=== PATIENT | female | born 1955 | race Caucasian/White ===

== ENCOUNTER → 2016-05-21 | Outpatient (CLI) | payer OTHER ==
[~2016-05-21] MED LIST: ASP81TEC PO; ATRV10T PO; CALC-146 PO; CHOL10003 PO; FAMO-119 PO; GLUC-113 PO; HYDR-34 PO; MTP25TSR PO; MULT-974 PO; OXYC-12 PO
--- OUTSIDE RECORDS SUMMARY | 2016-05-21 09:24 | XMS REPORT | Continuity of Care Document ---
Author Author [facility] Organization [facility] Address Unknown Phone Unavailable Care Team Providers Care Recreation Worker Name Role Phone Sakshi Carcamo PCP Unavailable Source Comments Some departments are not documenting in the electronic medical record. If you do not see the information that you expected, contact Release of Information in the Health Information Management department at [phone] for further assistance in locating additional records.[facility] Active Allergies and Adverse Reactions Allergen Noted Date Severity Reactions Comments Keflex 07/11/2013 NAUSEA AND VOMITING Current Medications Prescription Sig. Disp. Refills Start End Date Status Date metoprolol XL (TOPROL XL) Take 25 mg by mouth twice Active 25 mg tablet daily. atorvastatin (LIPITOR) 10 Take 10 mg by mouth Active mg tablet daily. aspirin 81 mg chewable Take 81 mg by mouth Active tablet daily. CALCIUM CARBONATE/VITAMIN Take by mouth daily. Active D3 (CALCIUM + D PO) MULTIVITAMINS WITH Take by mouth daily. Active FLUORIDE (MULTI-VITAMIN PO) coenzyme Q10(+) 100 mg Take 100 mg by mouth Active cap daily. famotidine (PEPCID) 20 mg Take 20 mg by mouth Active tablet daily. GLUC/GABBY-MSM#2/C/D3/CAROLINE Take by mouth daily. Active /BORN (RFAMLCRA-HNNRZA-[facility] WITH VIT D PO) Active Problems Problem Noted Date Dyspnea 07/11/2013 Screening for cardiovascular condition 04/24/2013 Overview: 09/01/09 Exercise stress [facility]- No evidence of significant myocardial ischemia or infarction, Normal regional wall motion, normal global Lv systolic function EF 73%, Normal LV size 09/26/12 Holter: Frequent isolated PVCs. One 4 -beat run of nonsustained wide complex tachycardia. Borderline ST abnormality. 09/27/12 Echo: Normal global LV systolic function. EF 60%. Pulmonary systolic pressure is estimated to be approximately 30-35 mmHg. 10/03/12 - (Via [place], [place]) No angiographically significant coronary artery diease on cardiac cath per outside records. LVEF 60%. Mild elevation of LV end-diastolic pressure. Tobacco use 04/24/2013 Palpitations 04/24/2013 Hyperlipidemia Social History Tobacco Use Types Packs/Day Years Used Date Current Every Day Smoker Cigarettes 0.5 Smokeless Tobacco: Never Used Alcohol Use Drinks/Week oz/Week Comments No Last Filed Vital Signs Vital Sign Reading Time Taken Blood Pressure 132/80 06/06/2014 10:42 AM CDT Pulse 73 06/06/2014 10:33 AM CDT Temperature - - Respiratory Rate - - Height 1.626 m (5' 4") 06/06/2014 10:33 AM CDT Weight 77.429 kg (170 lb 11.2 06/06/2014 10:33 AM CDT oz) Body Mass Index 29.29 06/06/2014 10:33 AM CDT Oxygen Saturation - - Plan of Care Health Maintenance Due Date Last Done Comments Physical (Comprehensive) 01/24/1964 Exam Pertussis Vaccine 01/24/1968 Tetanus Vaccine 1974 Cervical Cancer Screening 1978 Breast Cancer Screening 1997 Colorectal Cancer 2007 Screening Influenza Vaccine 11/27/2015 Results from Last 3 Months Not on file
== END ==
LOC: CARD 09:20
PROVIDERS: ATTEND Internal Medicine Interventional Cardiology
DX: I49.3 Ventricular premature depolarization (principal); I47.2 Ventricular tachycardia; Z72.0 Tobacco use
CPT/HCPCS: 93225; 93226

== ENCOUNTER → 2017-06-29 | Outpatient (CLI) | payer OTHER ==
--- NOTE | 2017-06-29 16:07 | Diagnostic Imaging Report ---
INDICATION: COUGH, R05 COMPARISON: None. FINDINGS: Frontal and lateral views of the chest demonstrate normal heart size and pulmonary vascularity. The lungs are clear. There are no signs of infiltrate, pleural effusions or pneumothoraces. The visualized osseous structures show no acute abnormalities. IMPRESSION: 1. No acute process. No signs of infiltrates, effusions or pneumothoraces. Dictated by: Dictated on workstation # [id number]
== END ==
LOC: RAD 15:55
PROVIDERS: ATTEND Internal Medicine
DX: R05 Cough (principal)
CPT/HCPCS: 71046

== ENCOUNTER → 2017-07-27 | Outpatient (CLI) | payer OTHER | LOC: RT 10:14 | PROVIDERS: ATTEND Internal Medicine Cardiovascular Disease | DX: R06.02 Shortness of breath (principal) | CPT/HCPCS: 94060; 94726; 94729 ==

== ENCOUNTER 2017-10-12 05:33 | Outpatient (CLI) | payer OTHER ==
[~2017-10-12] VITALS: Ht 162.6 cm; Wt 83.1 kg
[2017-10-12] MEDS ORDERED: CALC600T12 PO (09:58)
[2017-10-12] MEDS ORDERED: GLUC1CAP37 PO (09:58)
[2017-10-12] MEDS ORDERED: FAMO20TA3 PO (09:58)
[2017-10-12] MEDS ORDERED: ATOR20TA66 PO (09:58)
[2017-10-12] MEDS ORDERED: ASPI-999 PO (09:58)
[2017-10-12] MEDS ORDERED: METO-370 PO (09:58)
[2017-10-12] MEDS ORDERED: CHOL5000 PO (09:58)
[2017-10-12 10:06] VITALS: BP 136/87
[2017-10-12] MEDS ORDERED: NAPR220C11 PO (10:08)
== END 2017-10-12 10:54 | disposition home or self-care (01) ==
LOC: PREOP 05:33
PROVIDERS: ATTEND Orthopaedic Surgery
DX: Z01.818 Encounter for other preprocedural examination (principal); Z11.2 Encounter for screening for other bacterial diseases; S83.241A Other tear of medial meniscus, current injury, right knee, initial encounter; X58.XXXA Exposure to other specified factors, initial encounter; Y92.015 Private garage of single-family (private) house as the place of occurrence of the external cause
CPT/HCPCS: 87081

== ENCOUNTER 2017-10-19 08:08 | Day surgery (SDC) | payer OTHER ==
--- NOTE | 2017-10-10 17:32 | HISTORY AND PHYSICAL ---
DATE OF SERVICE: DATE OF ADMISSION: 10/19/2017 This will be for outpatient surgery on 10/19/2017 for left knee arthroscopy. HISTORY OF PRESENT ILLNESS: The patient is a 62-year-old female with osteogenesis imperfecta who injured her left knee approximately 7 weeks ago when she slipped on her garage floor twisting her knee. Since then she has been unable to fully extend her knee. She reports pain on the medial aspect. She denies any prior history of knee problems. She reports pain with twisting and prolonged standing. She reports swelling in her knee due to functional impairment and failure to improve with conservative measures, the patient elected to proceed with surgical intervention. REVIEW OF SYSTEMS: No chest pain, no shortness of breath. No dysuria. PAST MEDICAL HISTORY: Hypertension, arrhythmia, back pain, reflux, osteogenesis imperfecta. PAST SURGICAL HISTORY: Ear surgery, right patellar tendon, right meniscus, incisional hernia, cholecystectomy, flexor tendon repair, right oophorectomy, left Achilles tendon repair. FAMILY HISTORY: Significant for coronary artery disease, hypertension, osteogenesis imperfecta. PRIMARY CARE PROVIDER: Dr. Carcamo. MEDICATIONS: Lipitor, metoprolol, aspirin, Pepcid, vitamin, glucosamine. ALLERGIES: KEFLEX AND PRAVACHOL. SOCIAL HISTORY: The patient smokes half-a-pack of cigarettes a day. Denies alcohol use. RADIOGRAPHS: Reveal mild degenerative changes in all three compartments. No acute changes. PHYSICAL EXAMINATION: GENERAL: The patient is well developed, well nourished, in no acute distress. HEENT: Normocephalic, atraumatic. Pupils equal and reactive to light. Oropharynx is clear. NECK: Supple, no lymphadenopathy. LUNGS: Clear to auscultation bilaterally. HEART: Regular rate and rhythm. ABDOMEN: Soft, nontender, nondistended. EXTREMITIES: Left knee lacks 3 degrees to full full extension with a soft block noted. There is no varus-valgus laxity. Negative anterior and posterior drawer. Moderate effusion is noted. She is tender along the medial joint line and has pain medially with Skyla's. Pain with hip internal or external rotation. She ambulates with an antalgic gait. IMPRESSION: Left knee bucket-handle medial meniscal tear. PLAN: Left knee arthroscopy with partial medial meniscectomy. The risks, benefits, options, ramifications and recovery were discussed at length with the patient. She understands and wishes to proceed. Job ID: [id number] DocumentID: [id number] Dictated Date: 10/10/2017 16:26:14 Silver Chaser Date: 10/10/2017 17:31:13 Dictated By: REFUGIO MANZANARES MD
[~2017-10-19] VITALS: Ht 162.6 cm; Wt 83.1 kg
[~2017-10-19 08:08] MED LIST changes: +ASPI-999 PO; +ATOR20TA66 PO; +CALC600T12 PO; +CHOL5000 PO; +FAMO20TA3 PO; +GLUC1CAP37 PO; +METO-370 PO; +NAPR220C11 PO
[2017-10-19] MEDS ORDERED: CLINDAMYCIN 600 MG/50 ML IVPB 50 ML IV ONE ×2 (08:14→08:45)
[2017-10-19 08:15] VITALS: BP 131/95
[2017-10-19] MEDS ORDERED: morphine PF (DURAMORPH) 10 MG/10 ML AMP ONE (08:23)
[2017-10-19] MEDS ORDERED: BUPIVACAINE 0.25% 30 ML (SENSORCAINE) VIAL ONE (08:23)
[2017-10-19] MEDS ORDERED: FAMOTIDINE 20MG/2ML IV (PEPCID) IVP ONE (08:30)
[2017-10-19] MEDS: LACTATED RINGERS 1,000 ML IV PRN ×2 (08:30→10:10)
[2017-10-19] MEDS ORDERED: FAMOTIDINE 20MG/2ML IV (PEPCID) ONE (08:35)
[2017-10-19] MEDS ORDERED: proPOfol 200 MG/20 ML (DIPRIVAN) VIAL IV ONE (09:05)
[2017-10-19] MEDS ORDERED: LIDOCAINE PF 2% 5 ML (XYLOCAINE) VIAL ONE (09:05)
[2017-10-19] MEDS ORDERED: ONDANSETRON 4 MG/2 ML (SDV) Z0FRAN ONE (09:05)
[2017-10-19] MEDS ORDERED: fentaNYL INJECTION 100 MCG/2 ML AMP ONE (09:06)
[2017-10-19] MEDS ORDERED: SEVOFLURANE (ULTANE) 15 ML INHAL SOLN ONE ×3 (09:06→09:51)
[2017-10-19] MEDS ORDERED: MIDAZOLAM 2 MG/2 ML (VERSED) VIAL ONE (09:06)
--- NOTE | 2017-10-19 09:20 | Progress Note-Pre Operative ---
Pre-Operative Progress Note H&P Reviewed The H&P was reviewed, patient examined and no changes noted. Date Seen by Provider: Oct 19, 2017 Time Seen by Provider: 09:20 Date H&P Reviewed: Oct 19, 2017 Time H&P Reviewed: 09:20 Pre-Operative Diagnosis: left knee medial meniscal tear REFUGIO MANZANARES MD Oct 19, 2017 09:20
--- NOTE | 2017-10-19 09:22 | Progress Note-Post Operative ---
Post-Operative Progess Note Surgeon (s)/Magician/Illusionist (s) Surgeon REFUGIO MANZANARES MD Magician/Illusionist: Paolo Correa Pre-Operative Diagnosis left knee medial meniscal tear Post-Operative Diagnosis left knee medial and lateral meniscus tears and chondromalacia of the medial femoral condyle, medial tibial plateau and patella Procedure & Operative Findings Date of Procedure 10/19/17 Procedure Performed/Findings left knee arthroscopic partial medial and lateral meniscectomies and chondroplasty of the medial femoral condyle, medial tibial plateau and patella Anesthesia Type GETA Estimated Blood Loss Estimated blood loss (mL): minimal Specimens/Packing Specimens Removed none Packing: none REFUGIO MANZANARES MD Oct 19, 2017 09:22
[2017-10-19] MEDS ORDERED: HYDROcodone/APAP 7.5 MG/325 MG (LORTAB, LORCET PLUS) TABLET PO PRN (09:30)
[2017-10-19] MEDS ORDERED: morphine INJ 10 MG/ML 1ML (SYR OR VIAL) IVP PRN (10:00)
[2017-10-19] MEDS ORDERED: MEPERIDINE (DEMEROL) INJ 50 MG/ML IVP PRN (10:00)
[2017-10-19] MEDS ORDERED: ONDANSETRON 4 MG/2 ML (SDV) Z0FRAN IVP PRN (10:00)
[2017-10-19] MEDS ORDERED: HYDROmorphone 1 MG/ML (DILAUDID) 1 ML SYRINGE ONE (10:04)
[2017-10-19] MEDS: HYDROmorphone 1 MG/ML (DILAUDID) 1 ML SYRINGE IV PRN ×2 (10:10→10:30)
[2017-10-19 10:50] VITALS: BP 132/92
--- NOTE | 2017-10-19 10:50 | Anesthesia-General Post-Op ---
General Patient Condition Mental Status/LOC: Same as Preop Cardiovascular: Satisfactory Nausea/Vomiting: Absent Respiratory: Satisfactory Pain: Controlled Complications: Absent Post Op Complications Complications None Follow Up Care/Instructions Patient Instructions None needed. Anesthesia/Patient Condition Patient Condition Patient is doing well, no complaints, stable vital signs, no apparent adverse anesthesia problems. No complications reported per nursing. FRANKLIN SILVA CRNA Oct 19, 2017 10:49
[2017-10-19 11:20] VITALS: BP 127/79
[2017-10-19] MEDS ORDERED: HYDR-3816 PO (11:32)
[2017-10-19 11:50] VITALS: BP 135/86
[2017-10-19 12:25] VITALS: BP 135/86
--- NOTE | 2017-10-19 12:35 | Physical Therapy Ortho Eval ---
PT Orthopedic Evaluation Type of Surgery Knee Scope (left) Prior Level of Function Current Living Status: Friend Locomotion (Upon Admit): Independent Established Durable Medical Eq: Crutches Subjective Subjective Agreeable to PT. Reports she has used crutches before. Entry Into Home: Stairs With Railing Steps Into Home: 4 Motor Control Motor Control: Motor Control WNL ROM ROM: WFL Strength Strength: WFL Transfer Transfers (B, C, W/C) (FIM): 5 (post treatment she was indep) Gait Gait Assistive Device: Crutches Right Lower Extremity: Right Weight Bearing Status RLE: Full Weight Bearing Left Lower Extremity: Left Weight Bearing Status LLE: Weight Bearing/Tolerated Gait (FIM): 5 (post treatment she was mod indep) Distance (FIM): 3=150 ft Summary/Comments skilled gait training provided with education on reduction to 1 crutch or a cane ; up/down a curb step as well. Safe with gait and stairs. Treatment Rendered Treatment: Therapeutic Exercises, Gait Train, Step Train, Issued Written HEP Exercise Instruction: Quad Sets, Straight Leg Raise, Heel Slides Assessment/Goals Goal Time Frame: 1 Visit Understands HEP: Yes Safe Ambulation: Yes Plan Treatment Plan: Discharge Treatment Duration: 1 visit PT/Family Agrees to Plan: Yes Time Time In: 1140 Time Out: 1203 Total Billed Treatment Time: 23 Billed Treatment Time visit EVL 23 CARMINE BRANCH PT Oct 19, 2017 12:35
--- NOTE | 2017-10-19 14:15 | OPERATIVE REPORT ---
DATE OF SERVICE: 10/19/2017 PREOPERATIVE DIAGNOSIS: Left knee medial meniscal tear. POSTOPERATIVE DIAGNOSES: 1. Left knee medial meniscal tear. 2. Left knee lateral meniscal tear. 3. Left knee chondromalacia of the medial femoral condyle. 4. Left knee chondromalacia of the medial tibial plateau. 5. Left knee chondromalacia of the patella. PROCEDURES: 1. Left knee arthroscopic partial medial meniscectomy. 2. Left knee arthroscopic partial lateral meniscectomy. 3. Left knee arthroscopic chondroplasty of the medial femoral condyle. 4. Left knee arthroscopic chondroplasty of the medial tibial plateau. 5. Left knee arthroscopic chondroplasty of the patella. SURGEON: Fran Gann MD. SEAL DELIVERY VEHICLE OFFICER: Paolo Correa, who assisted throughout the procedure and closed the incisions. ANESTHESIA: General endotracheal by Thong Jamison CRNA. TOURNIQUET TIME: Not applicable. ESTIMATED BLOOD LOSS: None. COMPLICATION: None. POSTOPERATIVE PLAN: Routine arthroscopy protocol. The patient was transported to the recovery room awake and in stable condition. STATEMENT OF MEDICAL NECESSITY: The patient is a 62-year-old female with the complaints of left medial knee pain, catching and locking and swelling. She was unable to fully extend her knee. She was markedly tender along the medial joint line and had pain medially with Skyla's. It was felt that she likely had a medial meniscal tear and due to functional impairment and failure to improve with conservative measures, the patient elected to proceed with the operative intervention. Examination under anesthesia revealed range of motion of 0/3/125 with a negative Natty and negative anterior and posterior drawer. No varus or valgus laxity, negative pivot shift. ARTHROSCOPIC FINDINGS: The patella demonstrated grade IV chondral loss essentially in 15 x 10 area. There were surrounding grade III chondral flaps. The trochlea demonstrated diffuse grade I-II chondral changes with no unstable chondral flaps. The medial and lateral gutters were clear. The lateral compartment demonstrated a tear of the body of the lateral meniscus approximately one-third of the body and no significant chondral pathology was noted. The ACL and PCL were intact. The medial compartment demonstrated a tear of the posterior horn and body of the medial meniscus involving approximately 1/3 of the posterior horn and body. In addition, there were grade II-III chondral flaps of the central portion of the femoral condyle and tibial plateau in 10 x 10 areas. DESCRIPTION OF PROCEDURE: After risks and benefits of procedure were discussed and questions were answered and informed consent was signed and placed on the chart, the operative site was confirmed in the preoperative holding area initialed by the surgeon. The patient was transported to the operating room and after adequate levels of general endotracheal anesthetic were obtained, a timeout was called confirming the operative site. The left lower extremity was then prepped and draped in the usual sterile fashion after an examination under anesthesia had been performed. The knee joint was injected with 60 mL of fluid and a standard inferolateral portal was placed with the arthroscope under direct visualization and inferomedial portal was created. The menisci and cruciates were carefully probed with the above findings as noted. The unstable chondral flaps of the patella were debrided with a shaver back to a stable edge. The scope was redirected in the lateral compartment. The unstable lateral meniscus tear was debrided with a shaver back to a stable edge. This was carefully probed with no further tearing or instability noted. Scope was then redirected into the medial compartment and subchondral flaps of the medial femoral condyle and medial tibial plateau were debrided with a shaver back to a stable edge and the medial meniscus tear was debrided with a shaver throughout the body and posterior horn removing approximately 1/3 of the posterior horn and body. This was carefully probed with no further tearing or instability noted. The knee was copiously irrigated. Portal site was closed with 4-0 nylon in simple interrupted fashion. The knee was injected with Duramorph. The port sites were infiltrated with plain Marcaine. A soft dressing was applied. The patient was transported to the recovery room awake and in stable condition. Job ID: [id number] DocumentID: [id number] Dictated Date: 10/19/2017 09:56:35 Pediatrician Date: 10/19/2017 14:14:39 Dictated By: FRAN GANN MD
== END 2017-10-19 12:25 | disposition home or self-care (01) ==
LOC: SDC 08:08
PROVIDERS: ATTEND Orthopaedic Surgery
DX: S83.282A Other tear of lateral meniscus, current injury, left knee, initial encounter (principal); S83.242A Other tear of medial meniscus, current injury, left knee, initial encounter; M22.42 Chondromalacia patellae, left knee; Q78.0 Osteogenesis imperfecta; I10 Essential (primary) hypertension; F17.210 Nicotine dependence, cigarettes, uncomplicated; W01.0XXA Fall on same level from slipping, tripping and stumbling without subsequent striking against object, initial encounter; Y92.015 Private garage of single-family (private) house as the place of occurrence of the external cause; Z79.82 Long term (current) use of aspirin

== ENCOUNTER 2017-12-21 08:49 | Outpatient (RCR) | payer OTHER ==
[~2017-12-21 08:49] MED LIST changes: +HYDR-3816 PO
== END 2017-12-25 | disposition home or self-care (01) ==
PROVIDERS: ATTEND Orthopaedic Surgery
DX: S83.242D Other tear of medial meniscus, current injury, left knee, subsequent encounter (principal); W19.XXXD Unspecified fall, subsequent encounter

== ENCOUNTER 2018-01-18 16:06 | Outpatient (RCR) | payer OTHER | END 2018-01-24 09:51 | disposition home or self-care (01) | PROVIDERS: ATTEND Orthopaedic Surgery | DX: S83.242D Other tear of medial meniscus, current injury, left knee, subsequent encounter (principal); W19.XXXD Unspecified fall, subsequent encounter ==

== ENCOUNTER → 2019-04-17 | Outpatient (CLI) | payer OTHER ==
[~2019-04-17] VITALS: Ht 162 cm; Wt 89.0 kg
[~2019-04-17] MED LIST changes: -METO-370 PO; +METO50TA7 PO; +REGADENOSON 0.4 MG/5 ML SYR (LEXISCAN) IV ONE
[2019-04-17] MEDS: CATHETER FLUSH 10 ML SYR IV PRN ×2 (12:01→13:06)
[2019-04-17 12:58] VITALS: BP 177/89
--- NOTE | 2019-04-18 10:27 | STRESS TEST ---
DATE OF SERVICE: 04/17/2019 RESTING AND POST REGADENOSON TECHNETIUM-99M TETROFOSMIN SPECT CT IMAGING ORDERING PHYSICIAN: Sam Reaves MD, YANNI, FACP, FACC. OTHER PHYSICIAN: Fran Gann MD. CLINICAL DIAGNOSIS: Coronary artery disease. Baseline images were carried out after injection of 10.45 mCi of technetium-99m Tetrofosmin. This was followed by 0.4 mg regadenoson and 30.5 mCi of technetium-99m Tetrofosmin for stress imaging. The electrocardiogram showed sinus rhythm with left bundle branch block at baseline. The electrocardiogram did not change significantly with the regadenoson infusion. The patient tolerated the procedure well. Review of images at rest and following stress does not indicate any distinct perfusion defects consistent with significant myocardial ischemia or infarction. Gated images show normal regional wall motion and normal global left ventricular systolic function. Left ventricular ejection fraction is calculated to be 78%. Left ventricular end diastolic volume is 45 mL. TID is absent (0.98). CONCLUSIONS: 1. No evidence of any significant myocardial ischemia or infarction on this study. 2. Normal regional wall motion. 3. Normal global left ventricular systolic function with a calculated ejection fraction of 78%. Job ID: [id number] DocumentID: [id number] Dictated Date: 04/18/2019 08:37:16 Security Public Safety Officer Date: 04/18/2019 10:26:47 Dictated By: SAM REAVES MD, YANNI, FACP, FACC, [facility]
== END ==
LOC: CARD 11:40
PROVIDERS: ATTEND Internal Medicine Cardiovascular Disease
DX: I49.3 Ventricular premature depolarization (principal); R00.2 Palpitations; R06.02 Shortness of breath; I77.89 Other specified disorders of arteries and arterioles; E78.5 Hyperlipidemia, unspecified; I07.1 Rheumatic tricuspid insufficiency; Z72.0 Tobacco use; Z79.82 Long term (current) use of aspirin; Z79.899 Other long term (current) drug therapy
CPT/HCPCS: 78452; 93017; 93306

== ENCOUNTER 2019-08-17 09:08 | Outpatient (RCR) | payer OTHER ==
[2019-08-15 11:18] VITALS: BP 128/70
[2019-08-15 11:59] LABS: BASOPHILS % (AUTO) 0 % (0-10); EOSINOPHILS # (AUTO) 0.2 10^3/uL (0.0-0.3); EOSINOPHILS % (AUTO) 2 % (0-10); HEMATOCRIT 41 % (35-52); LYMPHOCYTES # (AUTO) 2.4 X 10^3 (1.0-4.0); LYMPHOCYTES % (AUTO) 31 % (12-44); MEAN CORPUSCULAR HEMOGLOBIN 29 PG (25-34); MEAN CORPUSCULAR HGB CONC 32 G/DL (32-36); MEAN CORPUSCULAR VOLUME 91 FL (80-99); MEAN PLATELET VOLUME 9.8 FL (7.4-10.4); MONOCYTES # (AUTO) 0.7 X 10^3 (0.0-1.0); MONOCYTES % (AUTO) 9 % (0-12); NEUTROPHILS # (AUTO) 4.4 X 10^3 (1.8-7.8); NEUTROPHILS % (AUTO) 58 % (42-75); PLATELET COUNT 205 10^3/uL (130-400); RED CELL DISTRIBUTION WIDTH 14.9 % (10.0-14.5); WHITE BLOOD COUNT 7.6 10^3/uL (4.3-11.0)
[2019-08-15 12:09] LABS: INR 0.9 (0.8-1.4); PROTHROMBIN TIME PATIENT 12.6 SEC (12.2-14.7)
[2019-08-15 12:13] LABS: ALBUMIN 4.1 GM/DL (3.2-4.5); CHLORIDE 106 MMOL/L (98-107); POTASSIUM 4.2 MMOL/L (3.6-5.0); SODIUM 139 MMOL/L (135-145)
[2019-08-15 12:15] LABS: CALCIUM 9.1 MG/DL (8.5-10.1)
[2019-08-15 12:16] LABS: GLUCOSE 138 MG/DL (70-105); TOTAL PROTEIN 6.9 GM/DL (6.4-8.2)
[2019-08-15 12:17] LABS: CARBON DIOXIDE 24 MMOL/L (21-32)
[2019-08-15 12:18] LABS: BILIRUBIN,TOTAL 0.2 MG/DL (0.1-1.0)
[2019-08-15 12:19] LABS: ALKALINE PHOSPHATASE 98 U/L (40-136); CREATININE SERUM 0.79 MG/DL (0.60-1.30); GFR ESTIMATED > 60
[2019-08-15 12:20] LABS: BUN/CREATININE RATIO 18
[2019-08-15 12:22] LABS: ALANINE AMINOTRANSFERASE 23 U/L (0-55)
[2019-08-15 12:42] LABS: ERYTHROCYTE SEDIMENTATION RATE 9 MM/HR (0-30)
--- NOTE | 2019-08-15 12:42 | Diagnostic Imaging Report ---
PA and lateral chest at 1204 hours. INDICATION: Preop total knee replacement. FINDINGS: The heart size is within normal limits and stable when compared to 06/29/2017. The lungs are clear. There is no evidence for failure, pneumonia or for pleural effusion. The mediastinum is not widened. The osseous structures are intact. IMPRESSION: There is no evidence for active disease. Dictated by: Dictated on workstation # [id number]
[2019-08-15 15:33] LABS: BILIRUBIN,URINE NEGATIVE (NEGATIVE); CLARITY,URINE SL CLOUDY; COLOR,URINE YELLOW; GLUCOSE, URINE (UA) NEGATIVE (NEGATIVE); KETONES,URINE NEGATIVE (NEGATIVE); LEUKOCYTE ESTERASE ,URINE NEGATIVE (NEGATIVE); NITRITE,URINE NEGATIVE (NEGATIVE); PROTEIN,URINE NEGATIVE (NEGATIVE)
[2019-08-15 15:44] LABS: BACTERIA,URINE TRACE /HPF; RBC,URINE RARE /HPF; RENAL EPITHELIAL CELLS,URINE 0-2 /HPF; WBC,URINE RARE /HPF
[2019-08-15 15:45] LABS: AMORPHOUS SEDIMENT,UR MOD AMOR PHOSPHATE /LPF
[~2019-08-17] VITALS: Ht 162 cm; Wt 89.0 kg
[~2019-08-17 09:08] MED LIST changes: +ACET325C7 PO; +CHOL500050 PO; -HYDR-3816 PO; -REGADENOSON 0.4 MG/5 ML SYR (LEXISCAN) IV ONE
[2019-08-22] MEDS ORDERED: OXYC1TAB87 PO (07:30)
== END 2019-08-17 14:46 | disposition home or self-care (01) ==
LOC: PREOP 09:08
PROVIDERS: ATTEND Orthopaedic Surgery
DX: Z01.818 Encounter for other preprocedural examination (principal); Z11.59 Encounter for screening for other viral diseases; M17.12 Unilateral primary osteoarthritis, left knee
CPT/HCPCS: 36415; 71046; 80053; 81000; 85025; 85610; 85652; 86850; 86900; 86901; 87081; 87635

== ENCOUNTER 2019-08-22 05:58 | Inpatient (IN) | payer OTHER ==
--- NOTE | 2019-08-13 11:58 | HISTORY AND PHYSICAL ---
DATE OF SERVICE: 08/22/2019 DATE OF ADMISSION: 08/22/2019. Admission will be for left total knee arthroplasty. The patient will require regular inpatient admission due to comorbidities, need for physical therapy, need for pain management. HISTORY OF PRESENT ILLNESS: The patient is a 64-year-old female with progressively worsening left knee pain. She has difficulty with work because of her knee. She also reports difficulty with activities of daily living because of the knee. She reports pain posteriorly and anteriorly. She reports difficulty with stairs and due to functional impairment and failure to improve with conservative measures, the patient has elected to proceed with surgical intervention. REVIEW OF SYSTEMS: No chest pain, no shortness of breath, no dysuria. PAST MEDICAL HISTORY: arrhythmia, back pain, reflux, osteogenesis imperfecta, hyperlipidemia, sciatica. PAST SURGICAL HISTORY: Ear, right patellar tendon repair, right meniscus repair, incisional herniorrhaphy, cholecystectomy, small finger flexor tendon repair, right oophorectomy, left Achilles repair, colonoscopy. FAMILY HISTORY: Significant for breast cancer, cardiovascular disease, osteogenesis imperfecta. PRIMARY CARE PROVIDER: Dr. Carcamo. MEDICATIONS: Metoprolol, Lipitor, glucosamine, aspirin, Pepcid, calcium, ibuprofen, Aleve. ALLERGIES: KEFLEX AND PRAVACHOL. SOCIAL HISTORY: The patient is a former smoker. Denies alcohol use. RADIOGRAPHS: Reveal complete loss of medial and near complete loss of patellofemoral joint space of the left knee. PHYSICAL EXAMINATION: GENERAL: The patient is well developed, well-nourished, in no acute distress. HEENT: Normocephalic, atraumatic. Pupils are equal, round, reactive to light. Oropharynx is clear. NECK: Supple, no lymphadenopathy. LUNGS: Clear to auscultation. HEART: Regular rate and rhythm. ABDOMEN: Soft, nontender, nondistended. EXTREMITIES: The patient ambulates with an antalgic gait. She is tender posterior medially along the joint line. There is no varus valgus laxity. Negative anterior and posterior drawer. Range of motion is 0/0/125. She has slight effusion noted. IMPRESSION: Severe left knee osteoarthritis, unresponsive to conservative measures. PLAN: Left total knee arthroplasty. The risks, benefits, options, ramifications and recovery were discussed at length with the patient. She understands and wishes to proceed. Job ID: [id number] DocumentID: [id number] Dictated Date: 08/13/2019 10:29:21 El Teacher Date: 08/13/2019 11:57:36 Dictated By: REFUGIO MANZANARES MD
[~2019-08-22] VITALS: Ht 162 cm; Wt 89.0 kg
[2019-08-22] VITALS (16 sets, daily range): BP systolic 126–183; BP diastolic 64–104
[2019-08-22] MEDS ORDERED: CEFUROXIME INJECTION 1,500 MG in WATER (STERILE) FOR INJECTION 15 ML IV ONE (06:15)
[2019-08-22] MEDS: LACTATED RINGERS 1,000 ML IV PRN ×3 (06:23→09:53)
[2019-08-22] MEDS ORDERED: BUPIVACAINE 0.5% 30 ML (SENSORCAINE) VIAL ONE (06:43)
[2019-08-22] MEDS ORDERED: SEVOFLURANE (ULTANE) 15 ML INHAL SOLN ONE (06:43)
[2019-08-22] MEDS ORDERED: DEXAMETHASONE 10 MG/ML (DECADRON) 1 ML VIAL ONE (06:43)
[2019-08-22] MEDS ORDERED: ONDANSETRON 4 MG/2 ML (SDV) Z0FRAN ONE ×2 (06:43→06:57)
[2019-08-22] MEDS ORDERED: LIDOCAINE PF 2% 5 ML (XYLOCAINE) VIAL ONE (06:43)
[2019-08-22] MEDS ORDERED: proPOfol 200 MG/20 ML (DIPRIVAN) VIAL IV ONE (06:43)
[2019-08-22] MEDS ORDERED: fentaNYL INJECTION 100 MCG/2 ML AMP ONE (06:44)
[2019-08-22] MEDS ORDERED: MIDAZOLAM 2 MG/2 ML (VERSED) VIAL ONE (06:44)
[2019-08-22] MEDS ORDERED: TRANEXAMIC ACID 100 MG/ML 10 ML INJECTION IV ONE (06:53)
[2019-08-22] MEDS ORDERED: FAMOTIDINE 20MG/2ML IV (PEPCID) ONE (06:58)
--- NOTE | 2019-08-22 07:28 | Progress Note-Pre Operative ---
Pre-Operative Progress Note H&P Reviewed The H&P was reviewed, patient examined and no changes noted. Date Seen by Provider: August 22, 2019 Time Seen by Provider: 07:20 Date H&P Reviewed: August 22, 2019 Time H&P Reviewed: 07:11 Pre-Operative Diagnosis: left knee primary osteoarthritis REFUGIO MANZANARES MD August 22, 2019 07:28
--- NOTE | 2019-08-22 07:29 | Progress Note-Post Operative ---
Post-Operative Progess Note Surgeon (s)/Linotype Worker (s) Surgeon REFUGIO MANZANARES MD Linotype Worker: Paolo Correa Pre-Operative Diagnosis left knee primary osteoarthritis Post-Operative Diagnosis left knee primary osteoarthritis Procedure & Operative Findings Date of Procedure 08/22/19 Procedure Performed/Findings left total knee arthroplasty Anesthesia Type GETA Estimated Blood Loss Estimated blood loss (mL): minimal Specimens/Packing Specimens Removed none Packing: none REFUGIO MANZANARES MD August 22, 2019 07:29
[2019-08-22] MEDS ORDERED: INTRA-ARTICULAR IU ONE ×5 (07:30)
[2019-08-22] MEDS ORDERED: diphenhydrAMINE 50 MG/ML INJ (BENADRYL) IVP PRN (07:30)
[2019-08-22] MEDS ORDERED: ACETAMINOPHEN 325 MG TABLET PO PRN (07:30)
[2019-08-22] MEDS ORDERED: OXYC1TAB87 PO (07:30)
--- NOTE | 2019-08-22 07:32 | D/C HH Face to Face Order ---
D/C Face to Face Orders Reconcile Patient Problems Problems Reviewed?: Yes Instructions for Patient [facility], Patient Instructions/FollowUp: three weeks Physician to follow Patient: three weeks Discharge Diet for Home: Regular Diet Patient Data-Allergies,Ht & Wt Patient Allergies: Coded Allergies: cephalexin (Unverified Adverse Reaction, Intermediate, VOMITING, 08/15/19) pravastatin (Unverified Adverse Reaction, Mild, NAUSEA, 08/15/19) Height (Feet): 5 Height (Inches): 4.00 Weight (Pounds): 183 Weight (Ounces): 5.0 Home Health Need/Face to Face Date of Face to Face: August 22, 2019 Clinical Findings: Instability, Muscle weakness, Pain with ambulation I have seen Pt [id number]: Yes Discharged To: Home Diagnosis/Conditions: left total knee arthroplasty Patient is Homebound due to: Leroy fall risk due to instabilty, Pain w/ambulation Homebound Status Due to the above stated illness, injury or surgical procedure (medical condition or diagnosis) and associated clinical findings, the patient is homebound because of his/her inability to leave home except with aid of a supportive device and/or person AND leaving the home requires a considerable and taxing effort or is medically contraindicated. Pt req the following assistanc: [facility] Nursing Orders Home Health Services Order: Physical Therapy-Evaluate & Treat DC left knee dayna and apply steri strips 09/05/19 Home Health Infusion Therapy Line Start Date: August 22, 2019 Therapy Orders Therapy Orders: Physical Therapy, PT to assess for OT Therapy Specific Orders: Eval assistive deivces, Teach enviro modifications/safety, Gait training, Increase strength/endurance, Provider maintenance therapy, Restore ROM Certify Stmt I certify that this patient is under my care and that I, a nurse practitioner or a physician; a nurses assistant working with me, had a face to face encounter that - meets the physician face to face encounter requirements with this patient as dated. REFUGIO MANZANARES MD August 22, 2019 07:32
[2019-08-22] MEDS ORDERED: ONDANSETRON 4 MG/2 ML (SDV) Z0FRAN IV ONE (08:00)
[2019-08-22] MEDS ORDERED: FAMOTIDINE 20MG/2ML IV (PEPCID) IV ONE (08:00)
[2019-08-22] MEDS ORDERED: PROPOFOL INJECTION 100 ML IV ONE (08:40)
[2019-08-22] MEDS ORDERED: MEPERIDINE (DEMEROL) INJ 50 MG/ML ONE (09:12)
[2019-08-22] MEDS ORDERED: HYDROmorphone 2 MG/ML VIAL (DILAUDID) ONE (09:12)
[2019-08-22] MEDS ORDERED: MEPERIDINE (DEMEROL) INJ 50 MG/ML IVP ONE ×2 (09:30)
[2019-08-22] MEDS ORDERED: ONDANSETRON 4 MG/2 ML (SDV) Z0FRAN IVP PRN (09:30)
[2019-08-22] MEDS ORDERED: PROMETHAZINE INJ 25 MG/ML (PHENERGAN) AMP IVP ONE (09:30)
[2019-08-22] MEDS ORDERED: HYDROmorphone 2 MG/ML VIAL (DILAUDID) IV ONE (09:30)
--- NOTE | 2019-08-22 09:43 | Diagnostic Imaging Report ---
INDICATION: Postop left knee. Time of exam: 9:25 AM Two views left knee demonstrate postoperative changes total knee arthroplasty. Prosthetic elements appear to be in good position. No fracture or loosening is seen. There are overlying skin dayna. IMPRESSION: Satisfactory postop appearance to the left knee. Dictated by: Dictated on workstation # [id number]
[2019-08-22] MEDS ORDERED: meTOprolol 5 MG/5 ML (LOPRESSOR) VIAL ONE (10:05)
--- NOTE | 2019-08-22 10:30 | NUR ---
TIM SUTHERLAND admitted to room 413, with an admitting diagnosis of total knee , on 08/22/19 from [facility], accompanied by staff.TIM SUTHERLAND introduced to surroundings, call light, bed controls, phone, TV, temperature control, lights, meal times, smoking policy, visitor policy, side rail policy, bathrooms and showers. Patient Rights given to patient in the handbook. TIM SUTHERLAND verbalizes understanding that [facility] is not responsible for the loss or damage to any personal effects or valuables that are kept in the patients posession during their hospitalization. TIM SUTHERLAND verbalizes understanding of Interdisciplinary Patient Education. Patient and/or family were informed about the Rapid Response Team and its purpose.
[2019-08-22] MEDS: NS IV 1000 ML 1,000 ML IV SCH ×2 (11:37→23:39)
[2019-08-22] MEDS: morphine PCA 100 MG/100 ML BAG IV PRN (11:39)
[2019-08-22] MEDS: SENNA W/DOCUSATE (SENOKOT S) TABLET PO SCH ×2 (12:44→20:09)
--- NOTE | 2019-08-22 13:51 | OPERATIVE REPORT ---
DATE OF SERVICE: 08/22/2019 PREOPERATIVE DIAGNOSIS: Left knee primary osteoarthritis. POSTOPERATIVE DIAGNOSIS: Left knee primary osteoarthritis. PROCEDURE: Left total knee arthroplasty. SURGEON: Fran Manzanares MD PHERESIS NURSE: Paolo Correa, who assisted throughout the procedure and closed the incision. ANESTHESIA: General endotracheal by Frances Hooks CRNA. TOURNIQUET TIME: Approximately 64 minutes at 300 mmHg. ESTIMATED BLOOD LOSS: Minimal. DRAINS: None. COMPLICATIONS: None. POSTOPERATIVE PLAN: Routine protocol. The patient was transferred to the recovery room awake and in stable condition. MATERIALS: Microport cemented size 3, femur with a 50 mm stem, cemented size 4 tibia with 50 mm stem with a 10 mm insert and a 29 patellar button. STATEMENT OF MEDICAL NECESSITY: The patient is a 64-year-old female with longstanding progressive left knee pain. She has undergone treatment with arthroscopy, injections, anti-inflammatories and rest without relief. She reported functional impairment, interference with her activities of daily living and because of this, the patient elected to proceed with surgical intervention. DESCRIPTION OF PROCEDURE: After risks and benefits of procedure were discussed and questions were answered, informed consent was signed and placed on the chart. The operative site was confirmed in the preoperative holding area initialed by the surgeon. The patient was then transferred to the operating room. After adequate levels of general endotracheal anesthetic were obtained, a timeout was called, confirming the operative site. The left lower extremity was prepped and draped in the usual sterile fashion. With the leg elevated and the knee flexed, the tourniquet was inflated to 300 mmHg. Standard anterior approach was utilized. Hemostasis was obtained with cautery. Medial parapatellar arthrotomy was performed, leaving 1 cm cuff on the patella for later reattachment. A portion of the fat pad was resected. A subperiosteal release was then carefully performed on the proximal medial tibia, being careful to stay on the bony surface. The ACL was resected. The intramedullary guide was passed into the femur. The distal cutting block was placed and the distal cut was made. The femur was sized to a size 3. The 3 cutting block was placed parallel to the epicondylar axis and cuts were made from posterior to anterior. Subperiosteal release was then carefully performed on the posterior distal femur, being careful to stay on the bony surface. Intramedullary guide was then passed into the tibia. The drop jonathan transected the intermalleolar axis and the cut was made. The baseplate was placed and the drop jonathan transected the intermalleolar axis. This was then prepared with the drill and keel punch. The trials were inserted. The stem construct was placed on the femur and this was drilled. A 10 mm insert was placed on the tibia. The patella was then prepared using the freehand technique by resecting 10 mm off the undersurface of the patella. The peg guide was placed and the peg holes were drilled. The 29 trial was placed. Knee was taken through range of motion. Full extension was easily obtained at 120 degrees of flexion with gravity was easily obtained. There was no anterior/posterior or medial/lateral laxity in flexion or extension. The trials were removed. The joint was irrigated with pulse lavage. Bone ends were irrigated and dried. The periarticular block was placed in the posterior capsule, medial and lateral retinaculum extensor mechanism subcutaneous tissues. The bone ends were irrigated and dried and the tibial prosthesis was cemented into position. Excessive cement was removed. The superior surface was irrigated and dried and the polyethylene insert was placed. The distal femur was irrigated and dried and the femoral prosthesis was cemented into position. Excessive cement was removed. The knee was brought into full extension and held until the cement had cured. The undersurface of the patella was irrigated and dried. The patellar button was cemented into position. Excessive cement was removed. Once the cement had cured, the knee was taken through a range of motion. Full extension was easily obtained, 120 degrees of flexion with gravity was easily obtained. The patella tracked well. There is no anterior/posterior or medial/lateral laxity in flexion or extension. The joint was further irrigated with pulse lavage. The arthrotomy was closed with #2 Tevdek in dmzjjy-as-epztp interrupted fashion. The knee was flexed. The repair was stable. The subcutaneous tissues were irrigated with pulse lavage using a total of 6 liters throughout the procedure. A 0 Vicryl was used to deep subcutaneous layer, 2-0 Vicryl for the superficial subcutaneous layer, dayna used on the skin. A soft dressing was applied. The tourniquet was deflated. The patient was transferred to the recovery room awake and in stable condition. Job ID: [id number] DocumentID: [id number] Dictated Date: 08/22/2019 09:17:42 Brick Dropper Date: 08/22/2019 13:50:52 Dictated By: FRAN MANZANARES MD
--- NOTE | 2019-08-22 13:54 | Progress Note ---
Standard Progress Note Progress Notes/Assess & Plan Date Seen by a Provider: August 22, 2019 Time Seen by a Provider: 13:52 Progress/Assessment & Plan post op check no complaints radiographs--HW well positioned without fracture LLE--2 plus DP pulse with brisk cap refill. intact sensation throughout. Intact DF andPF of toes and ankle s/p LTKA mobilize as able REFUGIO MANZANARES MD August 22, 2019 13:54
--- NOTE | 2019-08-22 14:18 | Physical Therapy Evaluation ---
PT Evaluation-General Medical Diagnosis Admission Date August 22, 2019 at 05:58 Medical Diagnosis: left TKA Onset Date: August 22, 2019 Therapy Diagnosis Therapy Diagnosis: impaired mobility, strength, endurance, ROM Height/Weight Height (Feet): 5 Height (Inches): 4.00 Weight (Pounds): 183 Weight (Ounces): 5.0 Precautions Precautions/Isolations: Standard Precautions Weight Bear Status Left Lower Extremity: Left Weight Bearing/Tolerated Referral Physician: Sunny Reason for Referral: Evaluation/Treatment Medical History Additional Medical History PAST MEDICAL HISTORY: arrhythmia, back pain, reflux, osteogenesis imperfecta, hyperlipidemia, sciatica. PAST SURGICAL HISTORY: Ear, right patellar tendon repair, right meniscus repair, incisional herniorrhaphy, cholecystectomy, small finger flexor tendon repair, right oophorectomy, left Achilles repair, colonoscopy. Reviewed History: Yes Social History Home: Single Level Current Living Status: Entry Into Home: Stairs With Railing PT Steps Into Home: 3 Prior Prior Level of Function SCALE: Activities may be completed with or without assistive devices. 5-Ramzyzgttz-uyhnjeq completes the activity by him/herself with no assistance from a helper. 5-Set-up or Clean-up Assistance-helper sets up or cleans up; patient completes activity. [place] assists only prior to or following the activity. 4-Supervision or Touching Assistance-helper provides verbal cues and/or touching/steadying and/or contact guard assistance as patient completes activity. Assistance may be provided throughout the activity or intermittently. 3-Partial/Moderate Assistance-helper does LESS THAN HALF the effort. [place] lifts, holds or supports trunk or limbs, but provides less than half the effort. 2-Substantial/Maximal Assistance-helper does MORE THAN HALF the effort. [place] lifts or holds trunk or limbs and provides more than half the effort. 7-Nnjjplaqf-mdppak does ALL the effort. Patient does none of the effort to complete the activity. Or, the assistance of 2 or more helpers is required for the patient to complete the activity. If activity was not attempted, code reason: 7-Patient Refused. 9-Not Applicable-not attempted and the patient did not perform the activity before the current illness, exacerbation or injury. 10-Not Attempted due to Environmental Limitations-(lack of equipment, weather restraints, etc.). 88-Not Attempted due to Medical Conditions or Safety Concerns. Bed Mobility: 6 Transfers (B,C,W/C): 6 Gait: 6 Stairs: 6 Indoor Mobility (Ambulation): Independent Stairs: Independent Prior Device Use: SPC PT Evaluation-Current Subjective Patient in bed pre tx, agrees to PT, has pain of 4-5/10 in left knee. Pt/Family Goals to be independent at home. Objective Patient Orientation: Person, Place, Situation Attachments: Oxygen, IV ROM/Strength ROM Lower Extremities left knee flexion 85 degrees, extension +10 degrees Sensory Vision: Wears Glasses Hearing: Functional Sensation Right Lower Extremit: Intact Sensation Left Lower Extremity: Impaired Sensation Lower Extremities Patient still has some numbness directly below knee but has intact light touch sensation in foot. Transfers Roll Left to Right (QC): 6 Sit to Lying (QC): 6 Lying to Sitting/Side of Bed(Q: 3 Sit to Stand (QC): 4 Chair/Qmg-on-Pxrvv Xfer(QC): 4 Toilet Transfer (QC): 4 Gait Does the Patient Walk?: Yes Mode of Locomotion: Walk Anticipated Mode of Locomotion: Walk Walk 10 feet (QC): 4 Distance: 10'x2 Gait Assistive Device: FWW Comments/Gait Description Patient ambulated to the bathroom and back to bed. Patient ambulated slow but steady, decreased knee flexion in left knee. Balance Sitting Static: Normal Sitting Dynamic: Normal Standing Static: Good Standing Dynamic: Good Treatment Supine total knee protocol x10 (AP, QS, HS, SAQ, SLR), CPM donned and set to leg and set to 60/-2 degrees. Assessment/Needs Patient has impaired mobility, strength, endurance, ROM post left TKA. Patient in bed post tx with nurse call, phone, alexander, [facility], [facility]. Rehab Potential: Fair PT Mcc Goals Waitress Goals PT Mcc Goals Time Frame: Aug 29, 2019 Roll Left & Right (QC): 6 Sit to Lying (QC): 6 Lying-Sitting on Side/Bed(QC): 6 Sit to Stand (QC): 5 Chair/Muh-wk-Tstfi Xfer(QC): 5 Walk 10 feet (QC): 5 Walk 50ft with 2 Turns (QC): 5 Walk 150 ft (QC): 5 1 Step (curb) (QC): 4 4 Steps (QC): 4 PT Plan Problem List Problem List: Activity Tolerance, Functional Strength, Safety, Balance, Gait, Transfer, Bed Mobility, ROM Treatment/Plan Treatment Plan: Continue Plan of Care Treatment Plan: Bed Mobility, Education, Functional Activity Alexsandra, Functional Strength, Gait, Safety, Therapeutic Exercise, Transfers Treatment Duration: Aug 29, 2019 Frequency: 11 times per week Estimated Hrs Per Day: .25 hour per day Patient and/or Family Agrees t: Yes Safety Risks/Education Patient Education: Gait Training, Transfer Techniques, Correct Positioning, Safety Issues Teaching Recipient: Patient Teaching Methods: Demonstration, Discussion Response to Teaching: Reinforcement Needed Discharge Recommendations Plan Patient will perform bed mobility and transfer training, balance and endurance training, functional strengthening, stair training, gait training, and education, to improve functional mobility and independence at home. Therapy Discharge Recommendati: Home & Family Time/GCodes Time In: 1310 Time Out: 1340 Total Billed Treatment Time: 30 Total Billed Treatment 1 visit EVM 20' FA 10' VICENTE TORO PT August 22, 2019 14:18
[2019-08-22] MEDS: CEFUROXIME INJECTION 750 MG in WATER (STERILE) FOR INJECTION 10 ML IV SCH ×2 (16:00→23:23)
--- NOTE | 2019-08-22 16:46 | Consultation - Hospitalist ---
HPI History of Present Illness: HPI/Chief Complaint Yadira rFances is a 62-year-old female with past medical history of hypertension, hyperlipidemia, GERD, osteoarthritis, who presented for a left total knee arthroplasty. The hospitalist services been consulted for medical comanagement. She underwent the procedure today and reports that it went well. She denies any complaints or concerns at this time. She denies any fevers or chills. She denies any chest pain or shortness of breath. She denies any abdominal pain, nausea, vomiting, constipation, or diarrhea. She denies any dysuria. She denies any rash. Source: patient Exam Limitations: no limitations Date Seen 08/22/19 Attending Physician Fran Gann MD PCP Temo Carcamo DO Referring Physician Date of Admission August 22, 2019 at 05:58 Home Medications & Allergies Home Medications Reviewed patient Home Medication Reconciliation performed by pharmacy medication reconciliations special equipment technician and/or nursing. Patients Allergies have been reviewed. Allergies Allergies Coded Allergies cephalexin (Unverified Adverse Reaction, Intermediate, VOMITING, 08/22/19) pravastatin (Unverified Adverse Reaction, Mild, NAUSEA, 08/22/19) Past Lsbppiv-Wlmtpg-Jlbczt Hx Past Med/Social Hx: Reviewed Nursing Past Med/Soc Hx Patient Social History Alcohol Use: Denies Use Recreational Drug Use: No Smoking Status: Current Everyday Smoker Type Used: Cigarettes Physical Abuse Screen: No Sexual Abuse: No Recent Foreign Travel: No Contact w/other who traveled: No Recent Hopitalizations: No Recent Infectious Disease Expo: No Immunizations Up To Date Date of Influenza Vaccine: Jan 10, 2017 Seasonal Allergies Seasonal Allergies: Yes Past Medical History Cardiac: High Cholesterol, Hypertension Reproductive: No Sexually Transmitted Disease: No HIV/AIDS: No Female Reproductive Disorders: Ovarian Cyst Gastrointestinal: Gastroesophageal Reflux Musculoskeletal: Arthritis, Chronic Back Pain Loss of Vision: Bilateral History of Blood Disorders: No Adverse Reaction to Blood Loza: No (N/A) Review of Systems Constitutional: no symptoms reported EENTM: no symptoms reported Respiratory: no symptoms reported Cardiovascular: no symptoms reported Gastrointestinal: no symptoms reported Genitourinary: no symptoms reported Musculoskeletal: no symptoms reported Skin: no symptoms reported Psychiatric/Neurological: No Symptoms Reported Physical Exam Physical Exam Vital Signs Vital Signs - First Documented Capillary Refill : Less Than 3 SecondsLess Than 3 Seconds Height, Weight, BMI Height: 5'4.00" Weight: 183lbs. 5.0oz. 83.822712ju; 33.91 BMI Method:Stated General Appearance: No Apparent Distress, Obese HEENT: PERRL/EOMI, Pharynx Normal Neck: Normal Inspection, Supple Respiratory: Lungs Clear, Normal Breath Sounds, No Respiratory Distress Cardiovascular: Regular Rate, Rhythm, No Edema, No Murmur Gastrointestinal: Normal Bowel Sounds, Non Tender, Soft Extremity: Normal Inspection, Non Tender, No Pedal Edema Neurologic/Psychiatric: Alert, Oriented x3, No Motor/Sensory Deficits, Normal Mood/Affect Skin: Normal Color, Warm/Dry Results Results/Procedures Labs Laboratory Tests 08/23/19 05:05 Patient resulted labs reviewed. Imaging: Reviewed Imaging Report Assessment/Plan Assessment and Plan Assess & Plan/Chief Complaint Osteoarthritis of left knee Status post total knee arthroplasty Orthopedic Surgery primary Pain regimen ordered bowel regimen ordered Incentive spirometer PT/OT Hypertension Hyperlipidemia GERD Continue home meds DVT prophylaxis: Lovenox Diagnosis/Problems Diagnosis/Problems (1) Osteoarthritis of left knee Status: Acute Qualifiers: Osteoarthritis type: primary Qualified Codes: M17.12 - Unilateral primary osteoarthritis, left knee (2) S/P total knee arthroplasty Status: Acute Qualifiers: Laterality: left Qualified Codes: Z96.652 - Presence of left artificial knee joint (3) HTN (hypertension) Status: Chronic Qualifiers: Hypertension type: essential hypertension Qualified Codes: I10 - Essential (primary) hypertension (4) HLD (hyperlipidemia) Status: Chronic (5) GERD (gastroesophageal reflux disease) Status: Chronic Qualifiers: Esophagitis presence: esophagitis presence not specified Qualified Codes: K21.9 - Gastro-esophageal reflux disease without esophagitis JOANIE WAITE MD August 22, 2019 16:45
[2019-08-22] MEDS: meTOprolol TARTRATE 50 MG (LOPRESSOR) TAB PO SCH (20:09)
[2019-08-23] MEDS: oxyCODONE/APAP 5/325MG (PERCOCET 5) TABLET PO PRN ×3 (00:08→19:20)
--- NOTE | 2019-08-23 00:10 | NUR ---
PT WAS ON THE BATHROOM, GETTING READY TO SIT ON THE TOILET WITH MY HELP, GAIT BELT AND A WALKER. WHEN PT LEFT LEG GAVE UP. IN PT WORDS," MY KNEE WHEN FROM ONE SIDE TO THE OTHER AND BACK IN PLACE. I ALSO FELT LIKE IT POP." PT WAS WC TO BED WITH KENDALL CERDA HELPED. BERNARDO OSUNA INFORMED ABOUT THE SITUATION. NEW ORDERS TO DO AN X-RAY. DR WILL CHECK IN THE MORNING. WILL CONTINUO TO MONITOR
[2019-08-23 04:00] VITALS: BP 145/71
[2019-08-23 05:13] LABS: HEMOGLOBIN 10.9 G/DL (11.5-16.0)
[2019-08-23] MEDS: MULTIVIT W/MINERALS TAB (THERAGRAN M) PO SCH (05:54)
--- NOTE | 2019-08-23 07:59 | Progress Note ---
Standard Progress Note Progress Notes/Assess & Plan Date Seen by a Provider: August 23, 2019 Time Seen by a Provider: 07:55 Progress/Assessment & Plan post op check no complaints radiographs--HW well positioned without fracture LLE--2 plus DP pulse with brisk cap refill. intact sensation throughout. Intact DF andPF of toes and ankle s/p LTKA mobilize as able Final Diagnosis Patient felt a "pop" while lowering onto toilet last PM . Did not fall. reports difficulty with DF of foot now Vital Signs Date Time Temp Pulse Resp B/P (MAP) Pulse Ox O2 Delivery O2 Flow Rate FiO2 08/23/19 04:00 36.6 76 16 145/71 (95) 98 Room Air 08/22/19 23:35 36.6 89 20 150/83 (105) 98 Room Air 08/22/19 21:00 Room Air 08/22/19 19:08 36.9 95 17 134/64 (87) 98 Room Air 08/22/19 15:25 36.3 88 15 138/86 (103) 97 Room Air 08/22/19 14:40 Nasal Cannula 2.00 08/22/19 13:51 100 Nasal Cannula 2.00 08/22/19 11:35 36.4 87 20 178/101 (126) 100 Room Air 08/22/19 10:30 36.4 18 168/96 (120) 100 Nasal Cannula 2 08/22/19 10:30 Nasal Cannula 2 08/22/19 10:30 36.3 74 20 183/97 (125) 100 Room Air 08/22/19 10:23 18 170/99 (122) 100 Nasal Cannula 2 08/22/19 10:22 Nasal Cannula 2 08/22/19 10:20 18 179/102 (127) 99 Nasal Cannula 2 08/22/19 10:17 18 181/104 (129) 100 Nasal Cannula 2 08/22/19 10:10 18 178/98 (124) 100 Nasal Cannula 2 08/22/19 10:10 Nasal Cannula 2 08/22/19 10:00 18 169/90 (116) 98 Nasal Cannula 2 08/22/19 09:55 Room Air 08/22/19 09:50 18 161/84 (109) 96 OxyMask 3 08/22/19 09:47 OxyMask 3 08/22/19 09:40 18 151/78 (102) 100 OxyMask 6 08/22/19 09:40 OxyMask 6 08/22/19 09:30 18 126/64 (84) 100 OxyMask 6 08/22/19 09:25 OxyMask 6 08/22/19 09:20 18 138/86 (103) 100 OxyMask 6 08/22/19 09:13 36.2 16 132/90 (104) 97 OxyMask 6 08/22/19 09:13 OxyMask 6 I & O 08/23/19 07:00 Intake Total 3398 ml Output Total 800 ml Balance 2598 ml Laboratory Tests Test 08/23/19 05:05 Range/Units Hemoglobin 10.9 L 11.5-16.0 G/DL Hematocrit 34 L 35-52 % LLE--dressing intact. reports decreased sensation diffusely below the knee. intact PF of ankle. Intact DF of toes, and with distraction she DF ankle but unable to volitionally. grossly stable to stress in all planes. unable to SLR, but has minimal quad contraction Radiographs without acute changes s/p LTKA continue PT. REFUGIO MANZANARES MD August 23, 2019 07:59
[2019-08-23 08:00] VITALS: BP 135/81
--- NOTE | 2019-08-23 08:15 | Diagnostic Imaging Report ---
INDICATION: Postop left total knee, knee felt wobbly. TECHNIQUE: 2 views of the left knee CORRELATION STUDY: 08/22/2019 FINDINGS: Surgical changes of a left total knee arthroplasty again demonstrated. Hardware appears to be intact with alignment of the knee unchanged. There is increasing soft tissue edema and joint effusion. There is resurfacing of the posterior patella. There is however what appears to be small bone fragmentation of the suprasellar region as well as some irregularity of the more inferior aspect patella, appearing changed from prior study. IMPRESSION: 1. Postoperative changes of a left total knee arthroplasty. 2. Increasing size of a joint effusion and soft tissue edema. There is also suggestion of some change about the patella. This may be owing to postoperative change, acute injury of the tendon and/or patellar is not excluded. Clinical correlation recommended. Dictated by: Dictated on workstation # [id number]
[2019-08-23] MEDS ORDERED: FAMOTIDINE 20MG/2ML IV (PEPCID) ONE (09:21)
[2019-08-23] MEDS: meTOprolol TARTRATE 50 MG (LOPRESSOR) TAB PO SCH ×2 (09:31→20:32)
[2019-08-23] MEDS: ASPIRIN E.C. 81 MG (ECOTRIN) TAB PO SCH (09:32)
[2019-08-23] MEDS: ENOXAPARIN 30 MG/0.3 ML (LOVENOX) SYR SC SCH ×2 (09:32→20:32)
[2019-08-23] MEDS: SENNA W/DOCUSATE (SENOKOT S) TABLET PO SCH ×2 (09:34→20:32)
[2019-08-23] MEDS: NS IV 1000 ML 1,000 ML IV SCH ×2 (09:42→12:01)
--- NOTE | 2019-08-23 11:08 | Physical Therapy Daily Note ---
PT Daily Note-Current Subjective Patient reports her left LE "gave out" last night and now cannot put weight through LE or activate her quad musculature. Pain Numeric Pain Scale: 8 Location: Left Location Body Site: Knee Pain Description: Acute Mental Status Patient Orientation: Normal For Age Attachments: IV Transfers SCALE: Activities may be completed with or without assistive devices. 3-Zjuumqrkml-ovkzrwi completes the activity by him/herself with no assistance from a helper. 5-Set-up or Clean-up Assistance-helper sets up or cleans up; patient completes activity. [place] assists only prior to or following the activity. 4-Supervision or Touching Assistance-helper provides verbal cues and/or touching/steadying and/or contact guard assistance as patient completes activity. Assistance may be provided throughout the activity or intermittently. 3-Partial/Moderate Assistance-helper does LESS THAN HALF the effort. [place] lifts, holds or supports trunk or limbs, but provides less than half the effort. 2-Substantial/Maximal Assistance-helper does MORE THAN HALF the effort. [place] lifts or holds trunk or limbs and provides more than half the effort. 7-Qgbwxnjjg-xwhuyy does ALL the effort. Patient does none of the effort to complete the activity. Or, the assistance of 2 or more helpers is required for the patient to complete the activity. If activity was not attempted, code reason: 7-Patient Refused. 9-Not Applicable-not attempted and the patient did not perform the activity before the current illness, exacerbation or injury. 10-Not Attempted due to Environmental Limitations-(lack of equipment, weather restraints, etc.). 88-Not Attempted due to Medical Conditions or Safety Concerns. Roll Left & Right (QC): 6 Lying to Sitting/Side of Bed(Q: 6 Sit to Stand (QC): 3 Chair/Zyx-oz-Uouwf Xfer(QC): 3 patient unable to weight bear or activate quad Weight Bearing Left Lower Extremity: Left Weight Bearing/Tolerated Gait Training Does the Patient Walk?: No and Walking Goal IS indicated Exercises Supine Ex: Ankle pumps, Heel Slides, Straight leg raise (PROM ) Supine Reps: 12 Seated Therapy Exercises: Ankle pumps, Long arc quads (PROM) Seated Reps: 15 Assessment During treatment, patient unable to activate left quadriceps. PT did have second PT assess patient and agrees. PT attempted to call physician cell and office and left a message on findings. Patient does have active left do rsiflexion and plantarflexion left foot. It is noted that patient is utilizing left hip flexor to attempt to active quad. PT Clerical And Office Support Workers Goals Clerical And Office Support Workers Goals PT Clerical And Office Support Workers Goals Time Frame: Aug 29, 2019 Roll Left & Right (QC): 6 Sit to Lying (QC): 6 Lying-Sitting on Side/Bed(QC): 6 Sit to Stand (QC): 5 Chair/Jiu-kk-Sjgsz Xfer(QC): 5 Walk 10 feet (QC): 5 Walk 50ft with 2 Turns (QC): 5 Walk 150 ft (QC): 5 1 Step (curb) (QC): 4 4 Steps (QC): 4 PT Plan Treatment/Plan Treatment Plan: Continue Plan of Care Treatment Plan: Bed Mobility, Education, Functional Activity Alexsandra, Functional Strength, Gait, Safety, Therapeutic Exercise, Transfers Treatment Duration: Aug 29, 2019 Frequency: 11 times per week Estimated Hrs Per Day: .25 hour per day Patient and/or Family Agrees t: Yes Time/GCodes Time In: 1011 Time Out: 1036 Total Billed Treatment Time: 25 Total Billed Treatment 1 visit EX x 2 25 min WILVER GRIMM PT August 23, 2019 11:08
--- NOTE | 2019-08-23 11:19 | Occupational Therapy Eval ---
OT Evaluation-General/PLF Medical Diagnosis Admission Date August 22, 2019 at 05:58 Medical Diagnosis: left TKA Onset Date: August 22, 2019 Therapy Diagnosis Therapy Diagnosis: impaired ADLs/functional mobility Height/Weight Height (Feet): 5 Height (Inches): 4.00 Weight (Pounds): 183 Weight (Ounces): 5.0 Precautions Precautions/Isolations: Standard Precautions Referral Physician: Sunny Referral Reason: Evaluation/Treatment Medical History Additional Medical History Per H&P: "PAST MEDICAL HISTORY: arrhythmia, back pain, reflux, osteogenesis imperfecta, hyperlipidemia, sciatica. PAST SURGICAL HISTORY: Ear, right patellar tendon repair, right meniscus repair, incisional herniorrhaphy, cholecystectomy, small finger flexor tendon repair, right oophorectomy, left Achilles repair, colonoscopy." Current History s/p L TKA on 08/22/2019 Social History Home: [facility] Current Living Status: Friend (2) Entry Into Home: Stairs With Railing Steps Into Home: 3 ADL-Prior Level of Function SCALE: Activities may be completed with or without assistive devices. 1-Vrikpxcxfp-qsdjask completes the activity by him/herself with no assistance from a helper. 5-Set-up or Clean-up Assistance-helper sets up or cleans up; patient completes activity. [place] assists only prior to or following the activity. 4-Supervision or Touching Assistance-helper provides verbal cues and/or touching/steadying and/or contact guard assistance as patient completes activity. Assistance may be provided throughout the activity or intermittently. 3-Partial/Moderate Assistance-helper does LESS THAN HALF the effort. [place] lifts, holds or supports trunk or limbs, but provides less than half the effort. 2-Substantial/Maximal Assistance-helper does MORE THAN HALF the effort. [place] lifts or holds trunk or limbs and provides more than half the effort. 4-Yaifovgui-ucoaln does ALL the effort. Patient does none of the effort to complete the activity. Or, the assistance of 2 or more helpers is required for the patient to complete the activity. If activity was not attempted, code reason: 7-Patient Refused. 9-Not Applicable-not attempted and the patient did not perform the activity before the current illness, exacerbation or injury. 10-Not Attempted due to Environmental Limitations-(lack of equipment, weather restraints, etc.). 88-Not Attempted due to Medical Conditions or Safety Concerns. ADL PLOF Comments Pt reports living with 2 other people, one is a retired RN. She lives in a 2 story house with her bedroom on the upper level. She plans on staying downstairs while she heals until she is able to tolerate going up and down the stairs again. The main level has a walk in shower with a shower chair, while upstairs has a tub/shower. She was independent with ADLs at PLOF, taking a lot of rest breaks as she needed to and modifying tasks to make them easier. She was independent with functional mobility using SPC. 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 She reports having felt a "pop" in her LLE last night as she got onto the toilet. Mental Status/Objective Patient Orientation: Person, Place, Time, Situation Attachments: IV Current Glasses/Contacts: Yes Hearing Aids: No Dentures/Partials: Yes (partial) Hand Dominance: Right Upper Extremity ROM WFL, BUE shoulder flexion to approx 160 degrees, she is able to touch the back of her head with her hands. Upper Extremity Coordination WFL Upper Extremity Sensation pt denies tingling/numbness BUEs Upper Extremity Strength grossly 4+/5 MMT Other Treatments Pt seated in recliner, agreeable to OT. OT educated pt on benefits and purpose of OT, she verbalized understanding. Pt provided information about PLOF and home set up. Pt then participated in UE screen. Pt discussed how she felt a "pop" in her leg last night and is now having difficulty kicking her lower leg forward. She reports PT was in this morning and they assessed this. OT educated pt on POC while she is admitted, she verbalized understanding. Post OT session, pt upright in recliner, call light in reach and all needs met. Education OT Patient Education: Correct positioning, Energy conservation, Modified ADL techniques, Progress toward Goal/Update tx plan, Purpose of tx/functional activities, Rehab process Teaching Recipient: Patient Teaching Methods: Discussion Response to Teaching: Verbalize Understanding OT Residential Goals Cps Team Lead Goals Time Frame: Aug 31, 2019 Eating (QC): 6 Oral Hygiene (QC): 6 Toileting Hygiene (QC): 6 Shower/Bathe Self (QC): 6 Upper Body Dressing (QC): 6 Lower Body Dressing (QC): 6 On/Off Footwear (QC): 6 1=Demonstrate adherence to instructed precautions during ADL tasks. 2=Patient will verbalize/demonstrate understanding of assistive devices/modifications for ADL. 3=Patient will improve strength/tolerance for activity to enable patient to perform ADL's. OT Education/Plan Problem List/Assessment Assessment: Decreased Activ Tolerance, Impaired Funct Balance, Impaired I ADL's, Impaired Self-Care Skills Discharge Recommendations Plan/Recommendations: Continue POC Treatment Plan/Plan of Care Treatment,Training & Education: Yes Patient would benefit from OT for education, treatment and training to promote independence in ADL's, mobility, safety and/or upper extremity function for ADL's. Plan of Care: ADL Retraining, Functional Mobility, UE Funct Exercise/Act Treatment Duration: Aug 31, 2019 Frequency: 5 times per week Estimated Hrs Per Day: .25 hour per day Agreement: Yes Rehab Potential: Fair Time/GCodes Start Time: 10:50 Stop Time: 11:05 Billed Treatment Time 1, LUISA BERNARD OT August 23, 2019 11:19
[2019-08-23] MEDS: ONDANSETRON 4 MG/2 ML (SDV) Z0FRAN IVP PRN ×2 (11:28→23:47)
--- NOTE | 2019-08-23 11:31 | NUR ---
CM/SS visited with the patient for social service consult. Plan: The patient will be discharged with outpatient physical therapy and a front wheeled walker. Outpatient physical therapy: The patient chose [facility]. CM/SS contacted the agency and made referral. The orders were faxed. SHELBY/TRAVON made an appointment for the patent for TuesdayAugust 26 at 10:15 a.m. DME: The patient was provided a patient preference form and chose [facility]. CM/SS contacted the agency and made referral. CM/SS faxed face sheet, H&P, and the script. They will deliver to the hospital. CM/SS will continue to follow.
[2019-08-23 12:00] VITALS: BP 135/77
--- NOTE | 2019-08-23 12:07 | Progress Note - Hospitalist ---
Subjective HPI/CC On Admission Date Seen by Provider: August 23, 2019 Time Seen by Provider: 09:05 Yadira Frances is a 62-year-old female with past medical history of hypertension, hyperlipidemia, GERD, osteoarthritis, who presented for a left total knee arthroplasty. The hospitalist services been consulted for medical comanagement. She underwent the procedure today and reports that it went well. She denies any complaints or concerns at this time. She denies any fevers or chills. She denies any chest pain or shortness of breath. She denies any abdominal pain, nausea, vomiting, constipation, or diarrhea. She denies any dysuria. She denies any rash. Subjective/Events-last exam she reports that she was getting out of bed last night and her knee popped. She says of the like her femur slid forward over her knee. She is feeling better this morning. She has had some nausea. She is having some acid reflux. She denies any fevers or chills. She denies any chest pain or shortness of breath. She denies any abdominal pain. Objective Exam Vital Signs Vital Signs Date Time Temp Pulse Resp B/P (MAP) Pulse Ox O2 Delivery O2 Flow Rate FiO2 08/23/19 08:00 36.9 79 20 135/81 (99) 97 Room Air 08/22/19 14:40 2.00 Capillary Refill : Less Than 3 SecondsLess Than 3 Seconds General Appearance: No Apparent Distress, Obese HEENT: PERRL/EOMI, Pharynx Normal Neck: Normal Inspection, Supple Respiratory: Lungs Clear, Normal Breath Sounds, No Respiratory Distress Cardiovascular: Regular Rate, Rhythm, No Edema, No Murmur Gastrointestinal: Normal Bowel Sounds, Non Tender, Soft Extremity: Normal Inspection, Non Tender, Pedal Edema Neurologic/Psychiatric: Alert, Oriented x3, No Motor/Sensory Deficits Skin: Normal Color, Warm/Dry Results/Procedures Lab Laboratory Tests 08/23/19 05:05 Patient resulted labs reviewed. Imaging: Reviewed Imaging Report Assessment/Plan Assessment and Plan Assess & Plan/Chief Complaint Osteoarthritis of left knee Status post total knee arthroplasty Orthopedic Surgery primary continue pain regimen continue bowel regimen Incentive spirometery PT/OT Hypertension Hyperlipidemia GERD Continue home meds DVT prophylaxis: Lovenox Diagnosis/Problems Diagnosis/Problems (1) Osteoarthritis of left knee Status: Acute Qualifiers: Osteoarthritis type: primary Qualified Codes: M17.12 - Unilateral primary osteoarthritis, left knee (2) S/P total knee arthroplasty Status: Acute Qualifiers: Laterality: left Qualified Codes: Z96.652 - Presence of left artificial knee joint (3) HTN (hypertension) Status: Chronic Qualifiers: Hypertension type: essential hypertension Qualified Codes: I10 - Essential (primary) hypertension (4) HLD (hyperlipidemia) Status: Chronic (5) GERD (gastroesophageal reflux disease) Status: Chronic Qualifiers: Esophagitis presence: esophagitis presence not specified Qualified Codes: K21.9 - Gastro-esophageal reflux disease without esophagitis Clinical Quality Measures DVT/VTE Risk/Contraindication: Risk Factor Score Per Nursin RFS Level Per Nursing on Admit: 4+=Very High JOANIE WAITE MD August 23, 2019 12:07
[2019-08-23] MEDS ORDERED: FAMOTIDINE 20 MG (PEPCID) TABLET PO NR (12:15)
--- NOTE | 2019-08-23 12:29 | Anesthesia-General Post-Op ---
General Patient Condition Mental Status/LOC: Same as Preop Cardiovascular: Satisfactory Nausea/Vomiting: Absent Respiratory: Satisfactory Pain: Controlled Complications: Absent Post Op Complications Complications None Follow Up Care/Instructions Patient Instructions None needed. Anesthesia/Patient Condition Patient Condition Patient is doing well, no complaints, stable vital signs, no apparent adverse anesthesia problems. No complications reported per nursing. FRANKLIN SILVA CRNA August 23, 2019 12:29
--- NOTE | 2019-08-23 13:22 | NUR ---
RD ASSESSMENT PMHx: HLD; GERD; HTN; s/p L TKA PT INTERACTION: Pt was awake and pleasant during nutrition assessment. Pt states current appetite is "moderate to poor," but normally good. Note avg PO intake 50% x2 meal, per chart review. Pt states trying to follow a low-fat diet at home, and has no issues with chewing/swallowing food. Pt states some recent issues with nausea, but not vomiting, constipation or diarrhea. Pt states last BM was 08/20. Note pt currently on bowel regimen of senna BID, per chart review. Pt states 15# wt gain since the fall 2018. Note unable to determine recent wt hx, per chart review. ABNORMAL NUTRITION-RELATED LAB VALUES No Labs taken Est. kcal needs: 5494-4478 kcal | 15-20 kcal/kg Est. Pro needs: 71-89 g Pro | 0.8-1.0 g Pro/kg PES STATEMENT: Inadequate oral intake (NI-2.1) related to loss of appetite | nausea as evidenced by pt interview | avg PO intake 50% x2meal INTERVENTION: Continue with current diet order of Regular diet. Pt may benefit from nutrition supplementation if PO intake declines. Will continue to follow and reassess as pt needs, intake, and status change. MONITOR/EVALUATE: PO Intake; Plan of Care; Hydration Status; Weight Status; Lab Values Asif Cosme, MS, RD, LD
--- NOTE | 2019-08-23 14:50 | Physical Therapy Daily Note ---
PT Daily Note-Current Subjective Patient agrees to PT. PT educated patient on knee immobilizer use to increase mobility. Patient agrees to use. Pain Numeric Pain Scale: 5-Moderate Pain Location: Left Location Body Site: Knee Pain Description: Acute Mental Status Patient Orientation: Normal For Age Attachments: IV Transfers SCALE: Activities may be completed with or without assistive devices. 7-Wjmtrzotbb-vyskpxp completes the activity by him/herself with no assistance from a helper. 5-Set-up or Clean-up Assistance-helper sets up or cleans up; patient completes activity. [place] assists only prior to or following the activity. 4-Supervision or Touching Assistance-helper provides verbal cues and/or touching/steadying and/or contact guard assistance as patient completes activity. Assistance may be provided throughout the activity or intermittently. 3-Partial/Moderate Assistance-helper does LESS THAN HALF the effort. [place] lifts, holds or supports trunk or limbs, but provides less than half the effort. 2-Substantial/Maximal Assistance-helper does MORE THAN HALF the effort. [place] lifts or holds trunk or limbs and provides more than half the effort. 9-Zmjbiekkg-oazbrq does ALL the effort. Patient does none of the effort to complete the activity. Or, the assistance of 2 or more helpers is required for the patient to complete the activity. If activity was not attempted, code reason: 7-Patient Refused. 9-Not Applicable-not attempted and the patient did not perform the activity before the current illness, exacerbation or injury. 10-Not Attempted due to Environmental Limitations-(lack of equipment, weather restraints, etc.). 88-Not Attempted due to Medical Conditions or Safety Concerns. Sit to Stand (QC): 5 Toilet Transfer (QC): 5 Weight Bearing Left Lower Extremity: Left Weight Bearing/Tolerated Gait Training Does the Patient Walk?: Yes Distance: 40' Walk 10 feet (QC): 4 Gait Assistive Device: FWW knee immobilizer in place left knee Exercises Seated Therapy Exercises: Ankle pumps, Long arc quads (PROM), Hip flexion Seated Reps: 15 Assessment Patient remains up in recliner. Nursing staff instructed to place left knee immobilizer on patient prior to OOB or chair activity. PA notified this PT on assessment in a.m. PT to address functional mobility as tolerated by patient. PT Mcfp Goals Mcfp Goals PT Mcfp Goals Time Frame: Aug 29, 2019 Roll Left & Right (QC): 6 Sit to Lying (QC): 6 Lying-Sitting on Side/Bed(QC): 6 Sit to Stand (QC): 5 Chair/Woy-zb-Ssehx Xfer(QC): 5 Walk 10 feet (QC): 5 Walk 50ft with 2 Turns (QC): 5 Walk 150 ft (QC): 5 1 Step (curb) (QC): 4 4 Steps (QC): 4 PT Plan Treatment/Plan Treatment Plan: Continue Plan of Care Treatment Plan: Bed Mobility, Education, Functional Activity Alexsandra, Functional Strength, Gait, Safety, Therapeutic Exercise, Transfers Treatment Duration: Aug 29, 2019 Frequency: 11 times per week Estimated Hrs Per Day: .25 hour per day Patient and/or Family Agrees t: Yes Time/GCodes Time In: 1305 Time Out: 1334 Total Billed Treatment Time: 29 Total Billed Treatment 1 visit GT 15 min EX 14 min WILVER GRIMM PT August 23, 2019 14:50
--- NOTE | 2019-08-23 15:14 | Progress Note ---
Standard Progress Note Progress Notes/Assess & Plan Date Seen by a Provider: August 23, 2019 Time Seen by a Provider: 15:12 Progress/Assessment & Plan post op check no complaints radiographs--HW well positioned without fracture LLE--2 plus DP pulse with brisk cap refill. intact sensation throughout. Intact DF andPF of toes and ankle s/p LTKA mobilize as able Final Diagnosis feeling better LLE-poor quad contraction. Neg SLR s/p LTKA will assess extensor mechanism in AM. Not unusual to have poor quad control at this point. If suspicious for quad disruption on inspection tomorrow will return to OR. NPO after REFUGIO MOJICA MD August 23, 2019 15:14
[2019-08-23 16:10] VITALS: BP 122/66
[2019-08-23 19:46] VITALS: BP 123/71
[2019-08-23 23:40] VITALS: BP 111/68
[2019-08-24] VITALS (13 sets, daily range): BP systolic 106–147; BP diastolic 66–91
[2019-08-24] MEDS: NS IV 1000 ML 1,000 ML IV SCH ×3 (00:32→15:05)
[2019-08-24 06:24] LABS: HEMOGLOBIN 9.5 G/DL (11.5-16.0)
[2019-08-24] MEDS: MULTIVIT W/MINERALS TAB (THERAGRAN M) PO SCH (06:25)
[2019-08-24] MEDS: ONDANSETRON 4 MG/2 ML (SDV) Z0FRAN IVP PRN ×3 (06:25→23:41)
--- NOTE | 2019-08-24 06:58 | Progress Note ---
Standard Progress Note Progress Notes/Assess & Plan Date Seen by a Provider: August 24, 2019 Time Seen by a Provider: 06:56 Progress/Assessment & Plan post op check no complaints radiographs--HW well positioned without fracture LLE--2 plus DP pulse with brisk cap refill. intact sensation throughout. Intact DF andPF of toes and ankle s/p LTKA mobilize as able Final Diagnosis no complaints Vital Signs Date Time Temp Pulse Resp B/P (MAP) Pulse Ox O2 Delivery O2 Flow Rate FiO2 08/24/19 03:58 36.4 83 18 118/71 (87) 98 Room Air 08/23/19 23:40 36.4 80 18 111/68 (82) 99 Room Air 08/23/19 21:00 Room Air 08/23/19 19:46 36.6 85 20 123/71 (88) 99 Room Air 08/23/19 16:10 36.6 85 18 122/66 (84) 98 Room Air 08/23/19 12:00 36.9 70 20 135/77 (96) 95 Room Air 08/23/19 09:00 Room Air 08/23/19 08:00 36.9 79 20 135/81 (99) 97 Room Air I & O 08/24/19 07:00 Intake Total 2420 ml Output Total 900 ml Balance 1520 ml Laboratory Tests Test 08/24/19 05:33 Range/Units Hemoglobin 9.5 L 11.5-16.0 G/DL Hematocrit 30 L 35-52 % LLE--incision clean and dry. unable to maintain knee extension, but very poor quad activation edema superiorly, so difficult to palpate for defect s/p LTKA with ? quad tendon disruption plan for return to OR today for explaration of extensor mechanism and repair REFUGIO MANZANARES MD August 24, 2019 06:58
[2019-08-24] MEDS: SENNA W/DOCUSATE (SENOKOT S) TABLET PO SCH ×2 (07:59→20:20)
[2019-08-24] MEDS: ENOXAPARIN 30 MG/0.3 ML (LOVENOX) SYR SC SCH ×2 (08:36→20:20)
[2019-08-24] MEDS: meTOprolol TARTRATE 50 MG (LOPRESSOR) TAB PO SCH ×2 (08:36→20:20)
[2019-08-24] MEDS: FAMOTIDINE 20 MG (PEPCID) TABLET PO SCH (08:36)
[2019-08-24] MEDS: ASPIRIN E.C. 81 MG (ECOTRIN) TAB PO SCH (08:36)
--- NOTE | 2019-08-24 09:23 | Physical Therapy Daily Note ---
PT Daily Note-Current Subjective Patient reports she is having surgery on this date. Transfers SCALE: Activities may be completed with or without assistive devices. 1-Lthqzvnbin-vdtgkqo completes the activity by him/herself with no assistance from a helper. 5-Set-up or Clean-up Assistance-helper sets up or cleans up; patient completes activity. [place] assists only prior to or following the activity. 4-Supervision or Touching Assistance-helper provides verbal cues and/or touching/steadying and/or contact guard assistance as patient completes activity. Assistance may be provided throughout the activity or intermittently. 3-Partial/Moderate Assistance-helper does LESS THAN HALF the effort. [place] lifts, holds or supports trunk or limbs, but provides less than half the effort. 2-Substantial/Maximal Assistance-helper does MORE THAN HALF the effort. [place] lifts or holds trunk or limbs and provides more than half the effort. 6-Zfjmiksni-elaqpw does ALL the effort. Patient does none of the effort to complete the activity. Or, the assistance of 2 or more helpers is required for the patient to complete the activity. If activity was not attempted, code reason: 7-Patient Refused. 9-Not Applicable-not attempted and the patient did not perform the activity before the current illness, exacerbation or injury. 10-Not Attempted due to Environmental Limitations-(lack of equipment, weather restraints, etc.). 88-Not Attempted due to Medical Conditions or Safety Concerns. Weight Bearing Left Lower Extremity: Left Weight Bearing/Tolerated Exercises Supine Ex: Ankle pumps, Heel Slides, Short Arc Quads, Straight leg raise Supine Reps: 12 Assessment Attempted to activate left quad with exercise, however, unable to. Patient to have repair per patient and physician report. PT Investigator Welfare Goals Alf Goals PT Alf Goals Time Frame: Aug 29, 2019 Roll Left & Right (QC): 6 Sit to Lying (QC): 6 Lying-Sitting on Side/Bed(QC): 6 Sit to Stand (QC): 5 Chair/Wuf-eu-Mddjv Xfer(QC): 5 Walk 10 feet (QC): 5 Walk 50ft with 2 Turns (QC): 5 Walk 150 ft (QC): 5 1 Step (curb) (QC): 4 4 Steps (QC): 4 PT Plan Treatment/Plan Treatment Plan: Continue Plan of Care Treatment Plan: Bed Mobility, Education, Functional Activity Alexsandra, Functional Strength, Gait, Safety, Therapeutic Exercise, Transfers Treatment Duration: Aug 29, 2019 Frequency: 11 times per week Estimated Hrs Per Day: .25 hour per day Patient and/or Family Agrees t: Yes Time/GCodes Time In: 820 Time Out: 828 Total Billed Treatment Time: 8 Total Billed Treatment 1 visit EX 8 min WILVER GRIMM PT August 24, 2019 09:23
--- NOTE | 2019-08-24 10:00 | Occupational Ther Daily Note ---
OT Current Status-Daily Note Subjective Pt seated in recliner, agreeable to OT Tx. Pt reports she is having surgery again today. ADL-Treatment Therapy Code Descriptions/Definitions Functional [place] Measure: 0=Not Assessed/NA 4=Minimal Assistance 1=Total Assistance 5=Supervision or Setup 2=Maximal Assistance 6=Modified [place] 3=Moderate Assistance 7=Complete IndependenceSCALE: Activities may be completed with or without assistive devices. 4-Qxpzlklmpa-fxujnyw completes the activity by him/herself with no assistance from a helper. 5-Set-up or Clean-up Assistance-helper sets up or cleans up; patient completes activity. [place] assists only prior to or following the activity. 4-Supervision or Touching Assistance-helper provides verbal cues and/or touching/steadying and/or contact guard assistance as patient completes activity. Assistance may be provided throughout the activity or intermittently. 3-Partial/Moderate Assistance-helper does LESS THAN HALF the effort. [place] l ifts, holds or supports trunk or limbs, but provides less than half the effort. 2-Substantial/Maximal Assistance-helper does MORE THAN HALF the effort. [place] lifts or holds trunk or limbs and provides more than half the effort. 2-Xbnzrifst-dwdfhs does ALL the effort. Patient does none of the effort to complete the activity. Or, the assistance of 2 or more helpers is required for t he patient to complete the activity. If activity was not attempted, code reason: 7-Patient Refused. 9-Not Applicable-not attempted and the patient did not perform the activity before the current illness, exacerbation or injury. 10-Not Attempted due to Environmental Limitations-(lack of equipment, weather restraints, etc.). 88-Not Attempted due to Medical Conditions or Safety Concerns. Other Treatment Pt seated in recliner, agreeable to OT Tx. In order to increase BUE strength and functional endurance, OT educated pt on HEP with red theraband. OT demo'd exercises and provided pt with printed exercise sheet. Pt completed x15 reps each, BUE using red theraband of the following: shoulder flexion, shoulder horizontal abduction, external rotation, bicep curls, and elbow extension. Pt took rest breaks as needed. Pt verbalized/demo'd understanding of exercises. Po st OT session, pt seated in recliner, call light in reach and all needs met. Education OT Patient Education: Correct positioning, Energy conservation, Exercise program, Progress toward Goal/Update tx plan, Purpose of tx/functional activities Teaching Recipient: Patient Teaching Methods: Discussion Response to Teaching: Verbalize Understanding OT Jail Goals Jail Goals Time Frame: Aug 31, 2019 Eating (QC): 6 Oral Hygiene (QC): 6 Toileting Hygiene (QC): 6 Shower/Bathe Self (QC): 6 Upper Body Dressing (QC): 6 Lower Body Dressing (QC): 6 On/Off Footwear (QC): 6 1=Demonstrate adherence to instructed precautions during ADL tasks. 2=Patient will verbalize/demonstrate understanding of assistive devices/modifications for ADL. 3=Patient will improve strength/tolerance for activity to enable patient to perform ADL's. OT Education/Plan Problem List/Assessment Assessment: Decreased Activ Tolerance, Decreased UE Strength, Impaired Funct Balance, Impaired I ADL's, Impaired Self-Care Skills Discharge Recommendations Plan/Recommendations: Continue POC Treatment Plan/Plan of Care Patient would benefit from OT for education, treatment and training to promote independence in ADL's, mobility, safety and/or upper extremity function for ADL's. Plan of Care: ADL Retraining, Functional Mobility, UE Funct Exercise/Act Treatment Duration: Aug 31, 2019 Frequency: 5 times per week Estimated Hrs Per Day: .25 hour per day Agreement: Yes Rehab Potential: Fair Time/GCodes Start Time: 09:40 Stop Time: 09:52 Total Time Billed (hr/min): 12 Billed Treatment Time 1, EX LUISA MANCIA OT August 24, 2019 10:00
--- NOTE | 2019-08-24 10:14 | NUR ---
CM/SS follow up. The patient was sitting in chair during visit and reports that "it has been a weird week" in regards to her surgery complications. The patient is going back to the OR today. CM/SS contacted [facility] text to see if her Outpatient Physical therapy appointment should be pushed back. The appointment will not be moved at this time and patient may be a good candidate for inpatient rehab. Will continue to follow.
--- NOTE | 2019-08-24 11:14 | NUR ---
IRF Evaluation Order received to evaluate patient for the ARU. Chart review complete and it appears patient is returning to OR, today. Will continue to follow as it relates to ongoing evaluation. It is noted patient's primary insurance is [employer]; therefore, if accepted, insurance authorization would need to be obtained prior to admission. Thank you for this referral.
--- NOTE | 2019-08-24 11:50 | NUR ---
TO OR PER CART.
[2019-08-24] MEDS ORDERED: MIDAZOLAM 2 MG/2 ML (VERSED) VIAL ONE (11:52)
[2019-08-24] MEDS ORDERED: fentaNYL INJECTION 100 MCG/2 ML AMP ONE (11:52)
--- NOTE | 2019-08-24 11:54 | Progress Note-Pre Operative ---
Pre-Operative Progress Note H&P Reviewed The H&P was reviewed, patient examined and no changes noted. Date Seen by Provider: August 24, 2019 Time Seen by Provider: 11:54 Date H&P Reviewed: August 22, 2019 Time H&P Reviewed: 07:11 Pre-Operative Diagnosis: left quadriceps tendon disruption REFUGIO MANZANARES MD August 24, 2019 11:54
--- NOTE | 2019-08-24 11:55 | Progress Note-Post Operative ---
Post-Operative Progess Note Surgeon (s)/Pipeline Construction Inspector (s) Surgeon REFUGIO MANZANARES MD Pipeline Construction Inspector: Paolo Correa Pre-Operative Diagnosis left quadriceps tendon disruption Post-Operative Diagnosis left quadriceps tendon disruption Procedure & Operative Findings Date of Procedure 08/24/19 Procedure Performed/Findings left quadriceps tendon repair Anesthesia Type GETA Estimated Blood Loss Estimated blood loss (mL): 100 ml Specimens/Packing Specimens Removed none Packing: none REFUGIO MANZANARES MD August 24, 2019 11:55
[2019-08-24] MEDS: LACTATED RINGERS 1,000 ML IV PRN ×2 (12:04→12:53)
[2019-08-24] MEDS: CEFUROXIME 750 MG (ZINACEF) VIAL ONE ×2 (12:25→13:48)
[2019-08-24] MEDS ORDERED: proPOfol 200 MG/20 ML (DIPRIVAN) VIAL IV ONE (12:30)
[2019-08-24] MEDS ORDERED: PROPOFOL INJECTION 50 ML IV ONE ×2 (12:30→12:59)
[2019-08-24] MEDS ORDERED: ONDANSETRON 4 MG/2 ML (SDV) Z0FRAN ONE (12:30)
[2019-08-24] MEDS ORDERED: LIDOCAINE PF 2% 5 ML (XYLOCAINE) VIAL ONE (12:30)
[2019-08-24] MEDS ORDERED: PHENYLEPHRINE 100 MCG/ML 10 ML (ANESTHESIA) SYR ONE (12:30)
[2019-08-24] MEDS ORDERED: CEFUROXIME INJECTION 750 MG in WATER (STERILE) FOR INJECTION 7.5 ML IV ONE (12:45)
[2019-08-24] MEDS ORDERED: morphine INJ 10 MG/ML 1ML (SYR OR VIAL) IVP ONE (14:00)
[2019-08-24] MEDS ORDERED: MEPERIDINE (DEMEROL) INJ 50 MG/ML IVP ONE (14:00)
[2019-08-24] MEDS ORDERED: ACETAMINOPHEN 325 MG TABLET PO PRN (14:00)
[2019-08-24] MEDS ORDERED: morphine PCA 100 MG/100 ML BAG IV PRN (14:00)
[2019-08-24] MEDS ORDERED: ONDANSETRON 4 MG/2 ML (SDV) Z0FRAN IVP PRN (14:00)
--- NOTE | 2019-08-24 14:50 | NUR ---
REC'D PER BED FROM PAR. ALERT AND ORIENTED. C/O PAIN LEFT KNEE. DRSG D/I WITH BRACE, POLAR KERON, MICHEAL HOSE, AND SCDS INTACT. CONNECTED TO DONOR PROCESSOR MORPHINE. O2 ON @ 2L N/C. VSS.
--- NOTE | 2019-08-24 15:04 | Physical Therapy Progress Note ---
Therapy Progress Note Pt. just returned to room from surgery this PM due to L quadriceps tendon rupture. Pt. states she is having a lot of pain in the L knee, declined standing at EOB this PM. We will reevaluate patient 08/24. WANG FULTON PT August 24, 2019 15:04
[2019-08-24] MEDS: morphine PCA 100 MG/100 ML BAG IV PRN (15:06)
[2019-08-24] MEDS: oxyCODONE/APAP 5/325MG (PERCOCET 5) TABLET PO PRN (17:10)
--- NOTE | 2019-08-24 21:52 | OPERATIVE REPORT ---
DATE OF SERVICE: 08/24/2019 PREOPERATIVE DIAGNOSIS: Left quadriceps tendon tear. POSTOPERATIVE DIAGNOSIS: Left quadriceps tendon tear. PROCEDURE: Left quadriceps tendon repair. SURGEON: Fran Manzanares MD BRIM PRESSER: MEG Leggett, who assisted throughout the procedure and closed the incision. ANESTHESIA: General endotracheal by Kinza Paris CRNA. TOURNIQUET TIME: Not applicable. ESTIMATED BLOOD LOSS: 100 mL. DRAINS: None. COMPLICATIONS: None. POSTOPERATIVE PLAN: 0 to 20 degrees range of motion for 4 weeks and then advancing beyond that. The patient was transferred to the recovery room awake and in stable condition. STATEMENT OF MEDICAL NECESSITY: The patient is a 64-year-old female who underwent a left total knee arthroplasty on 08/22/2019. She was doing well initially, but the night of surgery, she went to sit on to a toilet and that she distended felt a pop in the anterior aspect of her knee with a feeling of giving way. She has been unable to extend her knee since that point with poor quad control. The patient has osteogenesis imperfecta. It was felt that she likely disrupted her quadriceps tendon and recommended the patient undergo operative exploration with repair. DESCRIPTION OF PROCEDURE: After risks and benefits of procedure were discussed and questions were answered, an informed consent was signed and placed on chart, the operative site was confirmed and prepped in normal initialed by the surgeon. The patient was then transferred to the operating room. After adequate levels of general endotracheal anesthetic were obtained, a timeout was called, confirming the operative site. The left lower extremity was prepped and draped in the usual sterile fashion. The previously placed dayna were removed. The wound was opened and previous sutures were removed. The patient was found to have a complete disruption of quadriceps tendon extending to the mid portion of the patella, both medially and laterally. Of note, her quadriceps split from her initial procedure was intact on the suture line. The joint was irrigated with pulse lavage, removing the hematoma. FiberTape was then used in a locking [place] fashion extending from the distal stump proximally and then back to the distal aspect leaving two tails distally. A 4.75 Arthrex SwiveLock anchor was then used after drilling and tapping into the patella. The patient had poor bone quality, but the anchor held very well. This brought the quadriceps tendon to its [place] site. The knee was taken through range of motion and the repair was stable to beyond 90 degrees of flexion. The wound was further irrigated with pulse lavage. A total of 3 liters was used throughout the procedure. The retinacular defects were repaired with #2 FiberWire in [id number]-bu-leltb interrupted fashion. The wound was further irrigated with pulse lavage. The knee was flexed and the repair was stable. The patella tracked well. A 0 Vicryl was used to reapproximate deep subcutaneous layer, 2-0 Vicryl was used for the superficial subcutaneous layer, dayna used on the skin. A soft dressing and brace were applied. The patient was transferred to the recovery room awake and in stable condition. Job ID: [id number] DocumentID: [id number] Dictated Date: 08/24/2019 13:39:51 Braille Teacher Date: 08/24/2019 21:51:13 Dictated By: FRAN MANZANARES MD
[2019-08-24] MEDS: CEFUROXIME INJECTION 750 MG in WATER (STERILE) FOR INJECTION 10 ML IV SCH (22:47)
[2019-08-25] VITALS: BP 110/50
[2019-08-25] MEDS: oxyCODONE/APAP 5/325MG (PERCOCET 5) TABLET PO PRN ×6 (00:04→15:05)
[2019-08-25] MEDS: NS IV 1000 ML 1,000 ML IV SCH ×2 (02:00→05:37)
[2019-08-25 03:58] VITALS: BP 112/56
[2019-08-25] MEDS: MULTIVIT W/MINERALS TAB (THERAGRAN M) PO SCH (06:20)
[2019-08-25] MEDS: CEFUROXIME INJECTION 750 MG in WATER (STERILE) FOR INJECTION 10 ML IV SCH (06:20)
[2019-08-25 06:31] LABS: HEMOGLOBIN 8.4 G/DL (11.5-16.0)
[2019-08-25 07:47] VITALS: BP 126/70
[2019-08-25] MEDS ORDERED: ENOXAPARIN 30 MG/0.3 ML (LOVENOX) SYR SC SCH (08:00)
--- NOTE | 2019-08-25 08:03 | Progress Note ---
Standard Progress Note Progress Notes/Assess & Plan Date Seen by a Provider: August 25, 2019 Time Seen by a Provider: 08:00 Progress/Assessment & Plan post op check no complaints radiographs--HW well positioned without fracture LLE--2 plus DP pulse with brisk cap refill. intact sensation throughout. Intact DF andPF of toes and ankle s/p LTKA mobilize as able Final Diagnosis no complaints Vital Signs Date Time Temp Pulse Resp B/P (MAP) Pulse Ox O2 Delivery O2 Flow Rate FiO2 08/25/19 07:47 36.6 104 20 126/70 (88) 93 Room Air 08/25/19 03:58 36.7 97 20 112/56 (74) 97 Room Air 08/25/19 00:00 37.3 90 20 110/50 (70) 97 Room Air 08/24/19 20:00 97 Room Air 08/24/19 19:32 36.9 109 20 125/71 (89) 98 Room Air 08/24/19 16:18 36.8 88 16 147/80 (102) 100 Room Air 08/24/19 14:50 Nasal Cannula 2 08/24/19 14:50 36.4 18 132/88 (103) 99 Nasal Cannula 2 08/24/19 14:40 Nasal Cannula 2 08/24/19 14:40 18 128/91 (103) 100 Nasal Cannula 2 08/24/19 14:30 18 143/84 (103) 99 Nasal Cannula 2 08/24/19 14:29 Nasal Cannula 2 08/24/19 14:20 18 134/75 (94) 100 Nasal Cannula 2 08/24/19 14:18 Nasal Cannula 2 08/24/19 14:10 Nasal Cannula 2 08/24/19 14:10 18 138/79 (98) 99 Nasal Cannula 2 08/24/19 14:00 18 143/88 (106) 97 OxyMask 6 08/24/19 13:55 OxyMask 6 08/24/19 13:50 20 144/79 (100) 100 OxyMask 6 08/24/19 13:42 36.2 20 146/90 (108) 98 OxyMask 6 08/24/19 13:42 OxyMask 6 08/24/19 12:10 36.7 79 18 106/66 (79) 97 Room Air 08/24/19 09:00 98 Room Air I & O 08/25/19 07:00 Intake Total 3867.5 ml Output Total 600 ml Balance 3267.5 ml Laboratory Tests Test 08/25/19 06:11 Range/Units Hemoglobin 8.4 L 11.5-16.0 G/DL Hematocrit 27 L 35-52 % LLE--dressing intact. Intact DF and PF of toes and ankle. brisk cap refill. 2 plus dp pulse s/p L TKA with quad refill PT. IRF REFUGIO Tate MD August 25, 2019 08:03
[2019-08-25] MEDS: FAMOTIDINE 20 MG (PEPCID) TABLET PO SCH (09:03)
[2019-08-25] MEDS: ENOXAPARIN 30 MG/0.3 ML (LOVENOX) SYR SC SCH ×2 (09:03→21:21)
[2019-08-25] MEDS: ASPIRIN E.C. 81 MG (ECOTRIN) TAB PO SCH (09:03)
[2019-08-25] MEDS: meTOprolol TARTRATE 50 MG (LOPRESSOR) TAB PO SCH ×2 (09:03→21:21)
[2019-08-25] MEDS: SENNA W/DOCUSATE (SENOKOT S) TABLET PO SCH ×2 (09:04→21:21)
[2019-08-25] MEDS: CYCLOBENZAPRINE 10 MG (FLEXERIL) TAB PO PRN ×2 (09:04→21:45)
--- NOTE | 2019-08-25 10:20 | Anesthesia-General Post-Op ---
General Patient Condition Mental Status/LOC: Same as Preop Cardiovascular: Satisfactory Nausea/Vomiting: Absent Respiratory: Satisfactory Pain: Controlled Complications: Absent Post Op Complications Complications None Follow Up Care/Instructions Patient Instructions None needed. Anesthesia/Patient Condition Patient Condition Patient is doing fair, complaints of pain that patient said is relieved with pain medication by mouth, stable vital signs, no apparent adverse anesthesia problems. No complications reported per nursing. Patient is making plans for inpatient rehab. FIONA PERES CRNA August 25, 2019 10:20
--- NOTE | 2019-08-25 10:45 | Physical Therapy Daily Note ---
PT Daily Note-Current Subjective Pt reports she had very little sleep through the night. Knee pain 11/04. Pt somewhat discouraged about the complication of pateller tendon tear. Mental Status Patient Orientation: Person, Normal For Age Attachments: Knee Immobilizer, IV Knee immobilizer set to allow 20 degrees flexion Transfers SCALE: Activities may be completed with or without assistive devices. 1-Qbfapzcnrb-gudyqpq completes the activity by him/herself with no assistance from a helper. 5-Set-up or Clean-up Assistance-helper sets up or cleans up; patient completes activity. [place] assists only prior to or following the activity. 4-Supervision or Touching Assistance-helper provides verbal cues and/or touching/steadying and/or contact guard assistance as patient completes activity. Assistance may be provided throughout the activity or intermittently. 3-Partial/Moderate Assistance-helper does LESS THAN HALF the effort. [place] lifts, holds or supports trunk or limbs, but provides less than half the effort. 2-Substantial/Maximal Assistance-helper does MORE THAN HALF the effort. [place] lifts or holds trunk or limbs and provides more than half the effort. 3-Zchxqjlvo-mxyibi does ALL the effort. Patient does none of the effort to complete the activity. Or, the assistance of 2 or more helpers is required for the patient to complete the activity. If activity was not attempted, code reason: 7-Patient Refused. 9-Not Applicable-not attempted and the patient did not perform the activity before the current illness, exacerbation or injury. 10-Not Attempted due to Environmental Limitations-(lack of equipment, weather restraints, etc.). 88-Not Attempted due to Medical Conditions or Safety Concerns. Roll Left & Right (QC): 3 Sit to Lying (QC): 3 Sit to Stand (QC): 4 Chair/Qmq-ec-Fsxjk Xfer(QC): 3 Toilet Transfer (QC): 3 Pt not able to lift the left leg. This is the primary limiting factor for bed mobility. Standing from low surfaces is difficult as she can only use the right leg due to knee immobilizer. Weight Bearing Right Lower Extremity: Right Full Weight Bearing Left Lower Extremity: Left Weight Bearing/Tolerated Gait Training Does the Patient Walk?: Yes Distance: 5 Gait Persons Needed: 1 Gait Assistive Device: FWW step to pattern utilizing FWW. Pain limits full wt bearing through the left. Exercises Seated Therapy Exercises: Ankle pumps, Hip abd/add, Glut set Seated Reps: 10 isometric hamstring, quad, glute sets all x 10 with 5 second hold, active assist SLR x 10 reps Assessment Current Status: Fair Progress Pt put forth good effort. Poor active quad contraction on the (L). Leg weakness is limiting bed mobility and transfers. Pt will benefit from continued therapy to progress toward prior level of independent function. PT Academic Affairs Director Goals Custodial Goals PT Custodial Goals Time Frame: Aug 29, 2019 Roll Left & Right (QC): 6 Sit to Lying (QC): 6 Lying-Sitting on Side/Bed(QC): 6 Sit to Stand (QC): 5 Chair/Hbt-tk-Xhlac Xfer(QC): 5 Walk 10 feet (QC): 5 Walk 50ft with 2 Turns (QC): 5 Walk 150 ft (QC): 5 1 Step (curb) (QC): 4 4 Steps (QC): 4 PT Plan Problem List Problem List: Balance, Gait, Transfer, Bed Mobility, ROM Treatment/Plan Treatment Plan: Continue Plan of Care Treatment Plan: Bed Mobility, Education, Functional Activity Alexsandra, Functional Strength, Gait, Safety, Therapeutic Exercise, Transfers Treatment Duration: Aug 29, 2019 Frequency: 11 times per week Estimated Hrs Per Day: .25 hour per day Patient and/or Family Agrees t: Yes Time/GCodes Time In: 1020 Time Out: 1040 Total Billed Treatment Time: 30 Total Billed Treatment visit, exercise 20 min KAROLINA ADEN PT August 25, 2019 10:45
--- NOTE | 2019-08-25 11:00 | NUR ---
REPORT RECEIVED FROM LEN ARGUETA TO ASSUME NURSING CARE, MORPHINE DONOR SERVICES COORDINATOR WASTED, 60ML, WITNESSED BY WANG ARGUETA, UP IN CHAIR, BRACE INTACT TO LEFT LEG,
--- NOTE | 2019-08-25 12:09 | Occupational Ther Daily Note ---
OT Current Status-Daily Note Subjective Pt seen in room, up in recliner, agreeable to OT. No pain mentioned. Appearance Alert, cooperative ADL-Treatment OT orders reinitiated after surgery for patellar tendon repair L LE, following L TKA. Pt now in splint L LE, with WBAT. Pt indicated that she has red theraband in her room and will work on UE exercises this weekend. She needed to toilet. Assist to lower leg on recliner. Pt able to scoot to edge of chair and stand up with CGA, struggling a little before able to get her balance with FWW. Walked into bathroom with CGA, FWW, slowly. Toilet transfer with CGA onto tall toilet, using grab bar and FWW. Pt requested time and will contact nursing when finished. Pt left up in bathroom, call light present. Nursing notified as well. Therapy Code Descriptions/Definitions Functional [place] Measure: 0=Not Assessed/NA 4=Minimal Assistance 1=Total Assistance 5=Supervision or Setup 2=Maximal Assistance 6=Modified [place] 3=Moderate Assistance 7=Complete IndependenceSCALE: Activities may be completed with or without assistive devices. 2-Bpwgcopsme-wxbryrh completes the activity by him/herself with no assistance from a helper. 5-Set-up or Clean-up Assistance-helper sets up or cleans up; patient completes activity. [place] assists only prior to or following the activity. 4-Supervision or Touching Assistance-helper provides verbal cues and/or touching/steadying and/or contact guard assistance as patient completes activi ty. Assistance may be provided throughout the activity or intermittently. 3-Partial/Moderate Assistance-helper does LESS THAN HALF the effort. [place] lifts, holds or supports trunk or limbs, but provides less than half the effort. 2-Substantial/Maximal Assistance-helper does MORE THAN HALF the effort. [place] lifts or holds trunk or limbs and provides more than half the effort. 3-Seapogjwz-oauwae does ALL the effort. Patient does none of the effort to complete the activity. Or, the assistance of 2 or more helpers is required for the patient to complete the activity. If activity was not attempted, code reason: 7-Patient Refused. 9-Not Applicable-not attempted and the patient did not perform the activity before the current illness, exacerbation or injury. 10-Not Attempted due to Environmental Limitations-(lack of equipment, weather restraints, etc.). 88-Not Attempted due to Medical Conditions or Safety Concerns. Education OT Patient Education: Modified ADL techniques, Purpose of tx/functional activities, Reviewed precautions, Transfer techniques Teaching Recipient: Patient Teaching Methods: Discussion Response to Teaching: Verbalize Understanding, Return Demonstration OT Lens Grinder Rough Goals Lens Grinder Rough Goals Time Frame: Aug 31, 2019 Eating (QC): 6 Oral Hygiene (QC): 6 Toileting Hygiene (QC): 6 Shower/Bathe Self (QC): 6 Upper Body Dressing (QC): 6 Lower Body Dressing (QC): 6 On/Off Footwear (QC): 6 1=Demonstrate adherence to instructed precautions during ADL tasks. 2=Patient will verbalize/demonstrate understanding of assistive devices/modifications for ADL. 3=Patient will improve strength/tolerance for activity to enable patient to perform ADL's. OT Education/Plan Discharge Recommendations Plan/Recommendations: Continue POC Treatment Plan/Plan of Care Patient would benefit from OT for education, treatment and training to promote independence in ADL's, mobility, safety and/or upper extremity function for ADL's. Plan of Care: ADL Retraining, Functional Mobility, UE Funct Exercise/Act Treatment Duration: Aug 31, 2019 Frequency: 5 times per week Estimated Hrs Per Day: .25 hour per day Agreement: Yes Rehab Potential: Fair Time/GCodes Start Time: 11:44 Stop Time: 11:55 Total Time Billed (hr/min): 11 Billed Treatment Time visit, 11 minutes ADL JAY MORALES OT August 25, 2019 12:09
[2019-08-25 13:00] VITALS: BP 103/67
[2019-08-25 15:28] VITALS: BP 105/67
[2019-08-25] MEDS: morphine INJ 4 MG/ML 1 ML (VIAL/SYRINGE) IVP PRN ×2 (16:20→21:46)
[2019-08-25 19:16] VITALS: BP 113/72
[2019-08-26 00:07] VITALS: BP 116/53
[2019-08-26] MEDS: oxyCODONE/APAP 5/325MG (PERCOCET 5) TABLET PO PRN ×6 (01:04→19:02)
[2019-08-26 03:51] VITALS: BP 129/60
[2019-08-26] MEDS: MULTIVIT W/MINERALS TAB (THERAGRAN M) PO SCH (07:00)
[2019-08-26 07:51] VITALS: BP 105/68
--- NOTE | 2019-08-26 08:05 | Progress Note ---
Standard Progress Note Progress Notes/Assess & Plan Date Seen by a Provider: August 26, 2019 Time Seen by a Provider: 08:03 Progress/Assessment & Plan post op check no complaints radiographs--HW well positioned without fracture LLE--2 plus DP pulse with brisk cap refill. intact sensation throughout. Intact DF andPF of toes and ankle s/p LTKA mobilize as able Final Diagnosis no complaints Vital Signs Date Time Temp Pulse Resp B/P (MAP) Pulse Ox O2 Delivery O2 Flow Rate FiO2 08/26/19 07:51 37.5 113 20 105/68 (80) 95 Room Air 08/26/19 03:51 36.0 95 16 129/60 (83) 96 Simple Mask 08/26/19 00:07 36.7 101 16 116/53 (74) 97 Room Air 08/25/19 20:30 Room Air 08/25/19 19:16 37.2 109 18 113/72 (86) 100 Room Air 08/25/19 15:28 37.5 105 18 105/67 (80) 96 Room Air 08/25/19 13:00 37.2 108 20 103/67 (79) 97 Room Air 08/25/19 09:00 Room Air I & O 08/26/19 07:00 Intake Total 3596 ml Balance 3596 ml LLE--incision clean and dry. No calf tenderness. Neg Shawn's. quad tendon palpably intact s/p LTKA and quad repair to IRU when accepted. Patient requires considerable rehab prior to DC home REFUGIO MANZANARES MD August 26, 2019 08:05
[2019-08-26] MEDS: FAMOTIDINE 20 MG (PEPCID) TABLET PO SCH (08:40)
[2019-08-26] MEDS: SENNA W/DOCUSATE (SENOKOT S) TABLET PO SCH ×2 (08:40→20:13)
[2019-08-26] MEDS: meTOprolol TARTRATE 50 MG (LOPRESSOR) TAB PO SCH ×2 (08:40→20:13)
[2019-08-26] MEDS: ENOXAPARIN 30 MG/0.3 ML (LOVENOX) SYR SC SCH ×2 (08:43→20:13)
[2019-08-26] MEDS: ASPIRIN E.C. 81 MG (ECOTRIN) TAB PO SCH (08:45)
--- NOTE | 2019-08-26 10:38 | Progress Note - Hospitalist ---
Subjective HPI/CC On Admission Date Seen by Provider: August 25, 2019 Time Seen by Provider: 09:30 Yadira Frances is a 62-year-old female with past medical history of hypertension, hyperlipidemia, GERD, osteoarthritis, who presented for a left total knee arthroplasty. The hospitalist services been consulted for medical comanagement. She underwent the procedure today and reports that it went well. She denies any complaints or concerns at this time. She denies any fevers or chills. She denies any chest pain or shortness of breath. She denies any abdominal pain, nausea, vomiting, constipation, or diarrhea. She denies any dysuria. She denies any rash. Subjective/Events-last exam She reports feeling better today. She has no complaints or concerns. She is about to work with physical therapy. She has been eating and drinking well. Objective Exam Vital Signs Vital Signs Date Time Temp Pulse Resp B/P (MAP) Pulse Ox O2 Delivery O2 Flow Rate FiO2 08/26/19 07:51 37.5 113 20 105/68 (80) 95 Room Air 08/24/19 14:50 2 Capillary Refill : Less Than 3 SecondsLess Than 3 Seconds General Appearance: No Apparent Distress, Obese Respiratory: Lungs Clear, Normal Breath Sounds, No Respiratory Distress Cardiovascular: No Edema, No Murmur Gastrointestinal: Normal Bowel Sounds, Non Tender, Soft Extremity: Normal Inspection, Non Tender, No Pedal Edema Neurologic/Psychiatric: Alert, Oriented x3, No Motor/Sensory Deficits, Normal Mood/Affect Skin: Normal Color, Warm/Dry Results/Procedures Lab Patient resulted labs reviewed. Imaging: Reviewed Imaging Report Assessment/Plan Assessment and Plan Assess & Plan/Chief Complaint Osteoarthritis of left knee Status post total knee arthroplasty Left quadriceps tendon rupture Orthopedic Surgery primary Status post total knee arthroplasty 08/21 Returned to OR 08/23 due to quadriceps tendon rupture continue pain regimen continue bowel regimen Incentive spirometery PT/OT Hypertension Hyperlipidemia GERD Continue home meds DVT prophylaxis: Lovenox Diagnosis/Problems Diagnosis/Problems (1) Osteoarthritis of left knee Status: Acute Qualifiers: Osteoarthritis type: primary Qualified Codes: M17.12 - Unilateral primary osteoarthritis, left knee (2) S/P total knee arthroplasty Status: Acute Qualifiers: Laterality: left Qualified Codes: Z96.652 - Presence of left artificial knee joint (3) HTN (hypertension) Status: Chronic Qualifiers: Hypertension type: essential hypertension Qualified Codes: I10 - Essential (primary) hypertension (4) HLD (hyperlipidemia) Status: Chronic (5) GERD (gastroesophageal reflux disease) Status: Chronic Qualifiers: Esophagitis presence: esophagitis presence not specified Qualified Codes: K21.9 - Gastro-esophageal reflux disease without esophagitis (6) Quadriceps tendon rupture Status: Acute Qualifiers: Encounter type: initial encounter Laterality: left Qualified Codes: S76.112A - Strain of left quadriceps muscle, fascia and tendon, initial encounter Clinical Quality Measures DVT/VTE Risk/Contraindication: Risk Factor Score Per Nursin RFS Level Per Nursing on Admit: 4+=Very High JOANIE WAITE MD August 26, 2019 10:38
--- NOTE | 2019-08-26 10:40 | Progress Note - Hospitalist ---
Subjective HPI/CC On Admission Date Seen by Provider: August 26, 2019 Time Seen by Provider: 09:30 Yadira Frances is a 62-year-old female with past medical history of hypertension, hyperlipidemia, GERD, osteoarthritis, who presented for a left total knee arthroplasty. The hospitalist services been consulted for medical comanagement. She underwent the procedure today and reports that it went well. She denies any complaints or concerns at this time. She denies any fevers or chills. She denies any chest pain or shortness of breath. She denies any abdominal pain, nausea, vomiting, constipation, or diarrhea. She denies any dysuria. She denies any rash. Subjective/Events-last exam She is sitting in her bedside chair. She has no complaints or concerns this morning. She has been eating and drinking without issue. She has been up and moving around a little bit. She reports feeling feverish and diaphoretic overnight. She denies any chest pain or shortness of breath. She denies any nausea or vomiting. She has had a bit of cough with use of her incentive spirometer. Objective Exam Vital Signs Vital Signs Date Time Temp Pulse Resp B/P (MAP) Pulse Ox O2 Delivery O2 Flow Rate FiO2 08/26/19 07:51 37.5 113 20 105/68 (80) 95 Room Air 08/24/19 14:50 2 Capillary Refill : Less Than 3 SecondsLess Than 3 Seconds General Appearance: No Apparent Distress, Obese Respiratory: Lungs Clear, Normal Breath Sounds, No Respiratory Distress Cardiovascular: Regular Rate, Rhythm, No Edema, No Murmur Gastrointestinal: Normal Bowel Sounds, Non Tender, Soft Extremity: Non Tender, Pedal Edema (2+), Other (Left knee immobilizer in place) Neurologic/Psychiatric: Alert, Oriented x3, No Motor/Sensory Deficits, Normal Mood/Affect Skin: Normal Color, Warm/Dry Results/Procedures Lab Patient resulted labs reviewed. Imaging: Reviewed Imaging Report Assessment/Plan Assessment and Plan Assess & Plan/Chief Complaint Osteoarthritis of left knee Status post total knee arthroplasty Left quadriceps tendon rupture Orthopedic Surgery primary Status post total knee arthroplasty 08/21 Returned to OR 08/23 due to quadriceps tendon rupture continue pain regimen continue bowel regimen Incentive spirometery PT/OT Hypertension Hyperlipidemia GERD Continue home meds DVT prophylaxis: Lovenox Diagnosis/Problems Diagnosis/Problems (1) Osteoarthritis of left knee Status: Acute Qualifiers: Osteoarthritis type: primary Qualified Codes: M17.12 - Unilateral primary osteoarthritis, left knee (2) S/P total knee arthroplasty Status: Acute Qualifiers: Laterality: left Qualified Codes: Z96.652 - Presence of left artificial knee joint (3) HTN (hypertension) Status: Chronic Qualifiers: Hypertension type: essential hypertension Qualified Codes: I10 - Essential (primary) hypertension (4) HLD (hyperlipidemia) Status: Chronic (5) GERD (gastroesophageal reflux disease) Status: Chronic Qualifiers: Esophagitis presence: esophagitis presence not specified Qualified Codes: K21.9 - Gastro-esophageal reflux disease without esophagitis (6) Quadriceps tendon rupture Status: Acute Qualifiers: Encounter type: initial encounter Laterality: left Qualified Codes: S76.112A - Strain of left quadriceps muscle, fascia and tendon, initial encounter Clinical Quality Measures DVT/VTE Risk/Contraindication: Risk Factor Score Per Nursin RFS Level Per Nursing on Admit: 4+=Very High JOANIE WAITE MD August 26, 2019 10:40
--- NOTE | 2019-08-26 10:43 | Physical Therapy Daily Note ---
PT Daily Note-Current Subjective Agrees to PT. Reports she is starting to feel a little better. Reports mobility remains difficult at this time. Wearing her brace at all times Pain Numeric Pain Scale: 5-Moderate Pain Location: Left Location Body Site: Knee Pain Description: Ache, Pressure Comment: Painful with WB activity. Mental Status Patient Orientation: Person, Place, Time, Situation Transfers SCALE: Activities may be completed with or without assistive devices. 0-Yeeecaqjpq-fjjincg completes the activity by him/herself with no assistance from a helper. 5-Set-up or Clean-up Assistance-helper sets up or cleans up; patient completes a ctivity. [place] assists only prior to or following the activity. 4-Supervision or Touching Assistance-helper provides verbal cues and/or touching/steadying and/or contact guard assistance as patient completes activity. Assistance may be provided throughout the activity or intermittently. 3-Partial/Moderate Assistance-helper does LESS THAN HALF the effort. [place] lifts, holds or supports trunk or limbs, but provides less than half the effort. 2-Substantial/Maximal Assistance-helper does MORE THAN HALF the effort. [place] lifts or holds trunk or limbs and provides more than half the effort. 4-Sezdaepyp-iicflq does ALL the effort. Patient does none of the effort to complete the activity. Or, the assistance of 2 or more helpers is required for the patient to complete the activity. If activity was not attempted, code reason: 7-Patient Refused. 9-Not Applicable-not attempted and the patient did not perform the activity before the current illness, exacerbation or injury. 10-Not Attempted due to Environmental Limitations-(lack of equipment, weather restraints, etc.). 88-Not Attempted due to Medical Conditions or Safety Concerns. Sit to Lying (QC): 3 Lying to Sitting/Side of Bed(Q: 3 Sit to Stand (QC): 3 Chair/Tws-et-Uvkwz Xfer(QC): 3 Min assist to assist left LE in/out of bed with skilled cues for sequencing and technique. Min assist to transfer sit to stand with cues for hand placement and correct sequencing. Pt slow with transfers and takes extra time to complete. Weight Bearing Right Lower Extremity: Right Full Weight Bearing Left Lower Extremity: Left Weight Bearing/Tolerated Gait Training Does the Patient Walk?: Yes Distance: 60 ft x 2 Walk 10 feet (QC): 3 Walk 50 ft with 2 Turns(QC): 3 Gait Assistive Device: FWW Knee immobilizer in place during gait. Pt able to ambulate. x 60 ft at a time, step to gait with the right with timid WB through the left LE. Skilled cues for instruction in proper walker use and sequencing with gait. Slow gait. Slightly unsteady with CG-min assist at times for safety. Pt follows cues well. Exercises Supine Ex: Ankle pumps, Quad Set, Hip abd/add Supine Reps: 10 (Functional strength to facilitate quad activitation and control ) Treatments Polar pack applied post treatment. Assessment Current Status: Good Progress Progressing well, but continues to have functional mobility deficits with need for assist with all mobility. Min assist with transfers and gait with skilled cues to sequence. Unable to safely care for herself at home at this time and would benefit from continued skilled therapy services to return her to a mod indep level of mobility. PT Senior Care Goals Manager Wireless Goals PT Manager Wireless Goals Time Frame: Aug 29, 2019 Roll Left & Right (QC): 6 Sit to Lying (QC): 6 Lying-Sitting on Side/Bed(QC): 6 Sit to Stand (QC): 5 Chair/Ntw-eu-Uhjzi Xfer(QC): 5 Walk 10 feet (QC): 5 Walk 50ft with 2 Turns (QC): 5 Walk 150 ft (QC): 5 1 Step (curb) (QC): 4 4 Steps (QC): 4 PT Plan Problem List Problem List: Activity Tolerance, Functional Strength, Safety, Balance, Gait, Transfer, Bed Mobility Treatment/Plan Treatment Plan: Continue Plan of Care Treatment Plan: Bed Mobility, Education, Functional Activity Alexsandra, Functional Strength, Gait, Safety, Therapeutic Exercise, Transfers Treatment Duration: Aug 29, 2019 Frequency: 11 times per week Estimated Hrs Per Day: .25 hour per day Patient and/or Family Agrees t: Yes Safety Risks/Education Patient Education: Transfer Techniques, Safety Issues Teaching Recipient: Patient Teaching Methods: Demonstration, Discussion Response to Teaching: Return Demonstration Time/GCodes Time In: 1010 Time Out: 1042 Total Billed Treatment Time: 32 Total Billed Treatment visit EX 15 GT 17 CARMINE BRANCH PT August 26, 2019 10:43
[2019-08-26 11:43] VITALS: BP 100/64
--- NOTE | 2019-08-26 14:41 | DISCHARGE SUMMARY ---
DATE OF SERVICE: DIAGNOSES: 1. Left knee primary osteoarthritis. 2. Left quadriceps tendon disruption. 3. Arrhythmia. 4. Back pain. 5. Reflux. 6. Osteogenesis imperfecta. 7. Hyperlipidemia. 8. Sciatica. PROCEDURES: 1. Left total knee arthroplasty. 2. Left knee quadriceps tendon repair. SUMMARY: The patient is a 64-year-old female with longstanding progressive left knee pain. She has undergone treatment with arthroscopy, anti-inflammatories, injections and rest without relief and due to functional impairment and failure to improve, the patient was admitted and underwent a total knee arthroplasty without complications. Postoperatively, she was initially doing very well. However, on the autographer following her surgery, she was squatting to go to the toilet and she felt her knee gave way and felt pain anteriorly. She was unable to actively extend the knee. It was felt that she likely disrupted quadriceps tendon. The patient was subsequently taken to the operating room on 08/24/2019 where she was found to have disruption of quadriceps tendon, which extended into her medial and lateral retinaculum. This was repaired. Postoperatively, the patient did well. At the time of discharge, her wound was clean and dry. She had no calf tenderness. Negative Homans sign. She was tolerating her diet well and tolerating pain with oral pain medication. CONDITION AT DISCHARGE: Good. DISCHARGE DISPOSITION: Transfer to the inpatient rehabilitation unit for continued physical and occupational therapy. Job ID: [id number] DocumentID: [id number] Dictated Date: 08/26/2019 08:03:04 Management Consulting Date: 08/26/2019 14:40:57 Dictated By: REFUGIO MANZANARES MD
[2019-08-26 16:02] VITALS: BP 102/66
[2019-08-26 20:16] VITALS: BP 122/70
[2019-08-26] MEDS: CYCLOBENZAPRINE 10 MG (FLEXERIL) TAB PO PRN (22:14)
[2019-08-26] MEDS: morphine INJ 4 MG/ML 1 ML (VIAL/SYRINGE) IVP PRN (22:15)
[2019-08-27] VITALS (7 sets, daily range): BP systolic 112–129; BP diastolic 65–80
[2019-08-27] MEDS: oxyCODONE/APAP 5/325MG (PERCOCET 5) TABLET PO PRN ×4 (04:56→19:57)
[2019-08-27] MEDS: MULTIVIT W/MINERALS TAB (THERAGRAN M) PO SCH (06:42)
--- NOTE | 2019-08-27 07:55 | Progress Note ---
Standard Progress Note Progress Notes/Assess & Plan Date Seen by a Provider: Aug 27, 2019 Time Seen by a Provider: 07:53 Progress/Assessment & Plan post op check no complaints radiographs--HW well positioned without fracture LLE--2 plus DP pulse with brisk cap refill. intact sensation throughout. Intact DF andPF of toes and ankle s/p LTKA mobilize as able Final Diagnosis no complaints Vital Signs Date Time Temp Pulse Resp B/P (MAP) Pulse Ox O2 Delivery O2 Flow Rate FiO2 08/27/19 04:00 37.3 100 18 115/69 (84) 98 Room Air 08/27/19 00:00 37.1 94 16 112/72 (85) 96 Room Air 08/26/19 23:00 37.1 08/26/19 20:20 Room Air 08/26/19 20:16 37.6 116 17 122/70 (87) 96 Room Air 08/26/19 16:02 37.0 104 18 102/66 (78) 100 Room Air 08/26/19 11:43 37.0 94 16 100/64 (76) 93 Room Air 08/26/19 09:00 Room Air I & O 08/27/19 07:00 Intake Total 1712 ml Balance 1712 ml LLE--incision clean and dry. No calf tenderness. Quad palpably intact s/p LTKA and quad repair pt would benefit from IRU due to limited mobility, weakness and history of osteogenesis imperfecta REFUGIO MANZANARES MD Aug 27, 2019 07:55
[2019-08-27] MEDS: ENOXAPARIN 30 MG/0.3 ML (LOVENOX) SYR SC SCH ×2 (09:01→19:56)
[2019-08-27] MEDS: ASPIRIN E.C. 81 MG (ECOTRIN) TAB PO SCH (09:01)
[2019-08-27] MEDS: meTOprolol TARTRATE 50 MG (LOPRESSOR) TAB PO SCH ×2 (09:01→19:57)
[2019-08-27] MEDS: SENNA W/DOCUSATE (SENOKOT S) TABLET PO SCH ×2 (09:01→19:57)
[2019-08-27] MEDS: FAMOTIDINE 20 MG (PEPCID) TABLET PO SCH (09:01)
--- NOTE | 2019-08-27 11:20 | NUR ---
PERCOCET 1 PO FOR C/O PAIN KNEE. HL SL RED AND NO MEDS CURRENTLY ORDERED IV, SO HL REMOVED PER PT REQUEST.
--- NOTE | 2019-08-27 11:45 | Physical Therapy Daily Note ---
PT Daily Note-Current Subjective Patient in recliner and agrees to PT. Patient has hinged knee brace left LE 0- 20 degrees locked on. Pain Numeric Pain Scale: 7 Location: Left Location Body Site: Knee Pain Description: Acute Mental Status Patient Orientation: Normal For Age Transfers SCALE: Activities may be completed with or without assistive devices. 1-Ntxbogxyim-xazlybt completes the activity by him/herself with no assistance from a helper. 5-Set-up or Clean-up Assistance-helper sets up or cleans up; patient completes activity. [place] assists only prior to or following the activity. 4-Supervision or Touching Assistance-helper provides verbal cues and/or t ouching/steadying and/or contact guard assistance as patient completes activity. Assistance may be provided throughout the activity or intermittently. 3-Partial/Moderate Assistance-helper does LESS THAN HALF the effort. [place] lifts, holds or supports trunk or limbs, but provides less than half the effort. 2-Substantial/Maximal Assistance-helper does MORE THAN HALF the effort. [place] lifts or holds trunk or limbs and provides more than half the effort. 3-Wdiwzttaa-obkkix does ALL the effort. Patient does none of the effort to complete the activity. Or, the assistance of 2 or more helpers is required for the patient to complete the activity. If activity was not attempted, code reason: 7-Patient Refused. 9-Not Applicable-not attempted and the patient did not perform the activity before the current illness, exacerbation or injury. 10-Not Attempted due to Environmental Limitations-(lack of equipment, weather restraints, etc.). 88-Not Attempted due to Medical Conditions or Safety Concerns. Sit to Stand (QC): 5 Weight Bearing Right Lower Extremity: Right Full Weight Bearing Left Lower Extremity: Left Weight Bearing/Tolerated Gait Training Does the Patient Walk?: Yes Distance: 150' Walk 10 feet (QC): 5 Walk 50 ft with 2 Turns(QC): 5 Walk 150 ft (QC): 5 Gait Assistive Device: FWW slow, antalgic Exercises Seated Therapy Exercises: Ankle pumps Seated Reps: 15 Assessment Patient fatigues very quickly with minimal activity. Patient is SBA with all mobility and remained up in recliner with needs met. PT Industrial Equipment Mechanic Goals Industrial Equipment Mechanic Goals PT Industrial Equipment Mechanic Goals Time Frame: Aug 29, 2019 Roll Left & Right (QC): 6 Sit to Lying (QC): 6 Lying-Sitting on Side/Bed(QC): 6 Sit to Stand (QC): 5 Chair/Xsb-dt-Bjacs Xfer(QC): 5 Walk 10 feet (QC): 5 Walk 50ft with 2 Turns (QC): 5 Walk 150 ft (QC): 5 1 Step (curb) (QC): 4 4 Steps (QC): 4 PT Plan Treatment/Plan Treatment Plan: Continue Plan of Care Treatment Plan: Bed Mobility, Education, Functional Activity Alexsandra, Functional Strength, Gait, Safety, Therapeutic Exercise, Transfers Treatment Duration: Aug 29, 2019 Frequency: 11 times per week Estimated Hrs Per Day: .25 hour per day Patient and/or Family Agrees t: Yes Time/GCodes Time In: 1104 Time Out: 1116 Total Billed Treatment Time: 12 Total Billed Treatment 1 visit GT 12 min WILVER GRIMM PT Aug 27, 2019 11:45
--- NOTE | 2019-08-27 14:48 | Occupational Ther Daily Note ---
OT Current Status-Daily Note Subjective Pt alert, sitting in recliner. Pt agrees to therapy. No c/o pain. Mental Status/Objective Patient Orientation: Person, Place, Time, Situation ADL-Treatment Pt up ad lesia in room. Pt taking self to bathroom using FWW then completed toilet transfer and hygiene, mod I. Per pt, pt was set up by nrsg then pt completed shower by self. BECERRA educated pt on lower body dressing equipment for donning/doffing socks. Pt stated and described how to don/doff pants and knee immobilizer. Pt has walk-in shower at home and described set up at home. After session, pt left in care of PT. Call light/phone in reach. All needs met in room. Therapy Code Descriptions/Definitions Functional [place] Measure: 0=Not Assessed/NA 4=Minimal Assistance 1=Total Assistance 5=Supervision or Setup 2=Maximal Assistance 6=Modified [place] 3=Moderate Assistance 7=Complete IndependenceSCALE: Activities may be completed with or without assistive devices. 8-Jnwuwcaeas-rynarla completes the activity by him/herself with no assistance from a helper. 5-Set-up or Clean-up Assistance-helper sets up or cleans up; patient completes activity. [place] assists only prior to or following the activity. 4-Supervision or Touching Assistance-helper provides verbal cues and/or touching/steadying and/or contact guard assistance as patient completes activity. Assistance may be provided throughout the activity or intermittently. 3-Partial/Moderate Assistance-helper does LESS THAN HALF the effort. [place] lifts, holds or supports trunk or limbs, but provides less than half the effort. 2-Substantial/Maximal Assistance-helper does MORE THAN HALF the effort. [place] lifts or holds trunk or limbs and provides more than half the effort. 0-Tozxioauh-ygoazq does ALL the effort. Patient does none of the effort to complete the activity. Or, the assistance of 2 or more helpers is required for the patient to complete the activity. If activity was not attempted, code reason: 7-Patient Refused. 9-Not Applicable-not attempted and the patient did not perform the activity before the current illness, exacerbation or injury. 10-Not Attempted due to Environmental Limitations-(lack of equipment, weather restraints, etc.). 88-Not Attempted due to Medical Conditions or Safety Concerns. Shower/Bathe Self (QC): 5 (per report) Upper Body Dressing (QC): 5 (per report) On/Off Footwear: 3 Toileting Hygiene (QC): 6 Toilet Transfer (QC): 6 OT Fpc Goals Forestry Supervisor Goals Time Frame: Aug 31, 2019 Eating (QC): 6 Oral Hygiene (QC): 6 Toileting Hygiene (QC): 6 Shower/Bathe Self (QC): 6 Upper Body Dressing (QC): 6 Lower Body Dressing (QC): 6 On/Off Footwear (QC): 6 1=Demonstrate adherence to instructed precautions during ADL tasks. 2=Patient will verbalize/demonstrate understanding of assistive devic es/modifications for ADL. 3=Patient will improve strength/tolerance for activity to enable patient to perform ADL's. OT Education/Plan Problem List/Assessment Assessment: Impaired Self-Care Skills Discharge Recommendations Plan/Recommendations: Continue POC Treatment Plan/Plan of Care Patient would benefit from OT for education, treatment and training to promote independence in ADL's, mobility, safety and/or upper extremity function for ADL's. Plan of Care: ADL Retraining, Functional Mobility, UE Funct Exercise/Act Treatment Duration: Aug 31, 2019 Frequency: 5 times per week Estimated Hrs Per Day: .25 hour per day Agreement: Yes Rehab Potential: Fair Time/GCodes Start Time: 13:45 Stop Time: 14:10 Total Time Billed (hr/min): 25 Billed Treatment Time 1 visit-ADL 2 (25 min) CARMINE BELTRAN Aug 27, 2019 14:48
--- NOTE | 2019-08-27 14:50 | NUR ---
PERCOCET 1 PO.
--- NOTE | 2019-08-27 15:03 | Physical Therapy Daily Note ---
PT Daily Note-Current Subjective Patient agrees to PT. Pain Numeric Pain Scale: 7 Location: Left Location Body Site: Knee Pain Description: Acute Mental Status Patient Orientation: Normal For Age Transfers SCALE: Activities may be completed with or without assistive devices. 4-Zqwdelvrqs-ckdvzaf completes the activity by him/herself with no assistance from a helper. 5-Set-up or Clean-up Assistance-helper sets up or cleans up; patient completes activity. [place] assists only prior to or following the activity. 4-Supervision or Touching Assistance-helper provides verbal cues and/or touching/steadying and/or contact guard assistance as patient completes activity . Assistance may be provided throughout the activity or intermittently. 3-Partial/Moderate Assistance-helper does LESS THAN HALF the effort. [place] lifts, holds or supports trunk or limbs, but provides less than half the effort. 2-Substantial/Maximal Assistance-helper does MORE THAN HALF the effort. [place] lifts or holds trunk or limbs and provides more than half the effort. 6-Vwarcnagk-orzlbo does ALL the effort. Patient does none of the effort to complete the activity. Or, the assistance of 2 or more helpers is required for the patient to complete the activity. If activity was not attempted, code reason: 7-Patient Refused. 9-Not Applicable-not attempted and the patient did not perform the activity before the current illness, exacerbation or injury. 10-Not Attempted due to Environmental Limitations-(lack of equipment, weather restraints, etc.). 88-Not Attempted due to Medical Conditions or Safety Concerns. Sit to Stand (QC): 6 up ad lesia in room Weight Bearing Right Lower Extremity: Right Full Weight Bearing Left Lower Extremity: Left Weight Bearing/Tolerated Gait Training Does the Patient Walk?: Yes Distance: 125' x 2/ 50' x 2 Walk 10 feet (QC): 6 Walk 50 ft with 2 Turns(QC): 6 Stair Training Stair Training: Handrails/: 1 handrail, uses walker #of Steps: 3 1 Step (curb) (QC): 5 Stairs: Pattern: Step to Exercises Supine Ex: Ankle pumps, Quad Set Supine Reps: 12 Assessment Patient tolerated treatment well and remains up in recliner. Patient is up in room ad lesia. Patient performed steps without difficulty and has home set up with assistance. PT Associate Store Director Goals Longterm Goals PT Associate Store Director Goals Time Frame: Aug 29, 2019 Roll Left & Right (QC): 6 Sit to Lying (QC): 6 Lying-Sitting on Side/Bed(QC): 6 Sit to Stand (QC): 5 Chair/Vhv-og-Wieah Xfer(QC): 5 Walk 10 feet (QC): 5 Walk 50ft with 2 Turns (QC): 5 Walk 150 ft (QC): 5 1 Step (curb) (QC): 4 4 Steps (QC): 4 PT Plan Treatment/Plan Treatment Plan: Continue Plan of Care Treatment Plan: Bed Mobility, Education, Functional Activity Alexsandra, Functional Strength, Gait, Safety, Therapeutic Exercise, Transfers Treatment Duration: Aug 29, 2019 Frequency: 11 times per week Estimated Hrs Per Day: .25 hour per day Patient and/or Family Agrees t: Yes Time/GCodes Time In: 1430 Time Out: 1454 Total Billed Treatment Time: 24 Total Billed Treatment 1 visit FA x 2 24 min WILVER GRIMM PT Aug 27, 2019 15:03
--- NOTE | 2019-08-27 15:30 | NUR ---
IRF Clinical information submitted to [facility], this morning. 15:15 Met with patient to discuss details related to rehabilitation program. Patient is agreeable to admission and required therapy regimen. 15:31 Received notification of approval for admission from insurance. KENDALL Sykes notified of approval and states she will notify patient. Patient to admit to ARU, 08/28/19.
[2019-08-27] MEDS: CYCLOBENZAPRINE 10 MG (FLEXERIL) TAB PO PRN (22:10)
[2019-08-28] MEDS: oxyCODONE/APAP 5/325MG (PERCOCET 5) TABLET PO PRN ×2 (02:05→06:32)
[2019-08-28 04:30] VITALS: BP 112/74
[2019-08-28] MEDS: MULTIVIT W/MINERALS TAB (THERAGRAN M) PO SCH (06:31)
[2019-08-28 08:00] VITALS: BP 108/67
[2019-08-28] MEDS: FAMOTIDINE 20 MG (PEPCID) TABLET PO SCH (08:11)
[2019-08-28] MEDS: SENNA W/DOCUSATE (SENOKOT S) TABLET PO SCH (08:11)
[2019-08-28] MEDS: ASPIRIN E.C. 81 MG (ECOTRIN) TAB PO SCH (08:11)
[2019-08-28] MEDS: meTOprolol TARTRATE 50 MG (LOPRESSOR) TAB PO SCH (08:11)
[2019-08-28] MEDS: ENOXAPARIN 30 MG/0.3 ML (LOVENOX) SYR SC SCH (08:13)
== END 2019-08-28 10:10 | DRG 470 ==
LOC: 4TH 05:58 → SURG 05:59 → 4TH 10:30
PROVIDERS: ADMIT Orthopaedic Surgery; ATTEND Orthopaedic Surgery
PROC: 0SRD0J9 Replacement of Left Knee Joint with Synthetic Substitute, Cemented, Open Approach (ICD-10-PCS; principal; 2019-08-22 07:30)
PROC: 0LQM0ZZ Repair Left Upper Leg Tendon, Open Approach (ICD-10-PCS; 2019-08-24)
DX: M17.12 Unilateral primary osteoarthritis, left knee (principal); Q78.0 Osteogenesis imperfecta; S76.112A Strain of left quadriceps muscle, fascia and tendon, initial encounter; I10 Essential (primary) hypertension; E78.00 Pure hypercholesterolemia, unspecified; E78.5 Hyperlipidemia, unspecified; K21.9 Gastro-esophageal reflux disease without esophagitis; E66.9 Obesity, unspecified; M54.40 Lumbago with sciatica, unspecified side; J30.2 Other seasonal allergic rhinitis; X50.9XXA Other and unspecified overexertion or strenuous movements or postures, initial encounter; Y92.231 Patient bathroom in hospital as the place of occurrence of the external cause; Z87.891 Personal history of nicotine dependence; Z68.33 Body mass index [BMI] 33.0-33.9, adult
CPT/HCPCS: 36415; 73560; 82565; 85014; 85018; 86850; 86900; 86901; 94664

== ENCOUNTER 2019-08-27 11:16 | Inpatient (IN) | payer OTHER ==
[~2019-08-27] VITALS: Ht 162.5 cm; Wt 90.2 kg
[~2019-08-27 11:16] MED LIST changes: +OXYC1TAB87 PO
[2019-08-27] MEDS ORDERED: FLEET ENEMA ADULT 1 EA BTL PR PRN (18:15)
[2019-08-27] MEDS ORDERED: ONDANSETRON 4 MG (ZOFRAN) ORAL DISSOLVE TAB PO PRN (18:15)
[2019-08-27] MEDS ORDERED: ACETAMINOPHEN 500 MG TAB (TYLENOL) PO PRN (18:15)
[2019-08-27] MEDS ORDERED: MELATONIN 3 MG TABLET PO PRN (18:15)
[2019-08-27] MEDS ORDERED: diphenhydrAMINE 25 MG TAB (BENADRYL) PO PRN (18:15)
[2019-08-27] MEDS ORDERED: LACTULOSE SYRUP 10GM/15ML (ENULOSE) 30ML UDC PO PRN (18:15)
[2019-08-27] MEDS ORDERED: CALCIUM CARBONATE 500 MG (TUMS) TAB.CHEW PO PRN (18:15)
[2019-08-27] MEDS ORDERED: DOCUSATE SODIUM 100 MG (COLACE) CAP PO PRN (18:15)
[2019-08-27] MEDS ORDERED: guaiFENesin/CODEINE (ROBITUSSIN AC) 10ML UDC PO PRN (18:15)
[2019-08-27] MEDS ORDERED: LOPERAMIDE 2 MG (IMODIUM) TABLET PO PRN (18:15)
[2019-08-27] MEDS ORDERED: BISACODYL 10 MG SUPP (DULCOLAX) PR PRN (18:15)
[2019-08-27] MEDS ORDERED: ALPRAZolam 0.25 MG (XANAX) TAB PO PRN (18:15)
[2019-08-27] MEDS ORDERED: SENNA W/DOCUSATE (SENOKOT S) TABLET PO SCH (21:00)
--- NOTE | 2019-08-28 10:05 | NUR ---
TMI SUTHERLAND admitted to room 229-1, with an admitting diagnosis of Left Total Knee replacement , on 08/28/19 from [facility] 4th floor med surg via wheel chair, accompanied by staff. TIM SUTHERLAND introduced to surroundings, call light, bed controls, phone, TV, temperature control, lights, meal times, smoking policy, visitor policy, side rail policy, bathrooms and showers. Patient Rights given to patient in the handbook. TIM SUTHERLAND verbalizes understanding that [facility] is not responsible for the loss or damage to any personal effects or valuables that are kept in the patients posession during their hospitalization. TIM SUTHERLAND verbalizes understanding of Interdisciplinary Patient Education. Patient and/or family were informed about the Rapid Response Team and its purpose. Patient received Patient Rights Booklet, which includes Privacy Act Statement and Data Collection Information Summary.
--- NOTE | 2019-08-28 10:58 | NUR ---
THE PT TRANSFERRED FROM 4TH FLOOR TO IRF- I DID NOT INTERVIEW THIS PT OR COMPLETE THE MED REC WHEN THEY WERE ON 4TH FLOOR DUE TO THE PT COMING FROM THE [facility] I WILL INTERVIEW THE PT AFTER THEY GET SETTLED ON 2ND FLOOR AND MAKE ANY CHANGES TO THE MED REC/NOTES NEEDED
--- NOTE | 2019-08-28 10:58 | PM&R Post Admission Assessment ---
PM&R Date of Visit: Aug 28, 2019 Time of Visit: 11:00 History of Present Illness CC: s/p left knee replacement required revision, now in immobilizer in need of rehab. 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 Lewis and Dr. Reaves, maintained on Metoprolol and Atorvastatin who continues to smoke who had an uneventful left knee replacement by Dr. Gann, required revision because of a tendon dysfunction who is now in an immobilizer and currently in need of rehab. Prior level of functioning was independent but she did walk with a cane because she was delayed for surgical replacement because of the pandemic. She smoked until the day she came in. 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[employer]) Alcohol Use: Denies Use Smoking Status: Current Everyday Smoker Type Used: Cigarettes Recent Hopitalizations: No Immunizations Up To Date Date of Influenza Vaccine: Jan 10, 2017 Seasonal Allergies Seasonal Allergies: Yes Past Medical History Surgeries: Orthopedic Cardiac: High Cholesterol, Hypertension, Irregular Heartbeat Reproductive: No Sexually Transmitted Disease: No HIV/AIDS: No Female Reproductive Disorders: Ovarian Cyst Gastrointestinal: Gastroesophageal Reflux Musculoskeletal: Arthritis, Chronic Back Pain Loss of Vision: Bilateral History of Blood Disorders: No Adverse Reaction to Blood Loza: No (N/A) PM&R Allergy/Meds/Data Review Allergies Coded Allergies: cephalexin (Unverified Adverse Reaction, Intermediate, VOMITING, 08/22/19) pravastatin (Unverified Adverse Reaction, Mild, NAUSEA, 08/22/19) Home Medications Scheduled Acetaminophen (Tylenol), 650 MG PO TID, (Reported) Aspirin (Aspirin), 81 MG PO DAILY, (Reported) Atorvastatin Calcium (Atorvastatin Calcium), 20 MG PO HS, (Reported) Cholecalciferol (Vitamin D3) (Vitamin D3), 125 MCG PO DAILY, (Reported) Famotidine (Acid Lodge Officer (FAMOTIDINE)), 20 MG PO DAILY, (Reported) Metoprolol Succinate (Metoprolol Succinate), 50 MG PO DAILY, (Reported) Oxycodone HCl/Acetaminophen (Percocet 5-325 mg Tablet), 1 TAB PO Q4H Current Medications Current Medications Reviewed Review of Systems Constitutional: see HPI, malaise, weakness EENTM: no symptoms reported Respiratory: no symptoms reported Cardiovascular: no symptoms reported Gastrointestinal: no symptoms reported Genitourinary: no symptoms reported Musculoskeletal: joint pain Skin: no symptoms reported Psychiatric/Neurological: No Symptoms Reported Physical Exam Physical Exam Vital Signs Capillary Refill : Height, Weight, BMI Height: 5'4.00" Weight: 183lbs. 5.0oz. 83.408120kr; 33.91 BMI Method:Stated General Appearance: No Apparent Distress, WD/WN Eyes: Bilateral Eye Normal Inspection, Bilateral Eye PERRL HEENT: PERRL/EOMI, Normal ENT Inspection, Pharynx Normal Neck: Full Range of Motion, Normal Inspection, Non Tender, Supple, Carotid Bruit Respiratory: Chest Non Tender, Lungs Clear, Normal Breath Sounds, No Accessory Muscle Use, No Respiratory Distress Cardiovascular: Regular Rate, Rhythm, No Edema, No Gallop, No JVD, No Murmur, Normal Peripheral Pulses Gastrointestinal: Normal Bowel Sounds, No Organomegaly, No Pulsatile Mass, Non Tender, Soft Back: Normal Inspection, No CVA Tenderness, No Vertebral Tenderness Extremity: Normal Capillary Refill, Normal Inspection, Normal Range of Motion (left leg in immobilizer), Non Tender, No Calf Tenderness, No Pedal Edema Neurologic/Psychiatric: Alert, Oriented x3, No Motor/Sensory Deficits, Normal Mood/Affect, filler block inserter remover II-XII Norm as Tested, Abnormal Gait Skin: Normal Color, Warm/Dry Lymphatic: No Adenopathy PM&R Medical Assessment & Plan REHAB/MEDICAL ASSESSMENT AND PLAN: REHAB IMPAIRMENT GROUP: Right knee replacement s/p revision to repair tendon ETIOLOGIC DIAGNOSIS: Right knee replacement s/p revision to repair tendon The comorbidities that impact the patients function and/or functional outcome by: smoker, HTN, arrhythmia REHAB PLAN: The patient is being admitted to our comprehensive inpatient rehabilitation facility and can tolerate the intensity of service consisting of at least: 180 minutes of therapy a day, 5 out of 7 days a week Rehab treatment will consist of: PT OT will help patient ambulate with left kn ee immobilizer along with fall prevention and monitor pain and regain ADL independence The patient/family has a good understanding of our discharge process and will benefit from an interdisciplinary inpatient rehabilitation program. The patient has potential to make improvement and is in need of at least two of the following multidisciplinary therapies including but not limited to physical, occupational, speech, and prosthetics and orthotics. Additionally the patient will need services from respiratory, nutritional services, wound care, psychology, etc. (Customize this to each patient). Given the patients complex condition and risk of further medical complications, rehabilitation services cannot be safely or effectively provided at a lower level of care such as a senior care facility. BARRIERS TO DISCHARGE: Inability to flex left knee ESTIMATED LOS: 7 days DISPOSITION: Home RELEVANT CHANGES SINCE PREADMISSION SCREENING: I have compared the patients medical and functional status at the time of the preadmission screening and there are: no changes PROGNOSIS: Good REHABILITATION GOALS: 1. PT OT will help patient ambulate with left knee immobilizer along with fall prevention and monitor pain and regain ADL independence All the above goals were reviewed with the patient and he/she is in agreement. By signing this document, I acknowledge that I have personally performed a full physical examination on this patient within 24 hours of admission to this inpatient rehabilitation facility and have determined the patient to be able to tolerate the above course of treatment at an intensive level for a reasonable period of time. I will be completing a detailed individualized Plan of Care for this patient by day #4 of the patients stay based upon the Preadmission Screen, the Post-Admission Evaluation, and the therapy evaluations. Admission Dx/Comorbidities: (1) S/P total knee arthroplasty Status: Acute ICD Codes: Z96.659 - Presence of unspecified artificial knee joint (2) Cardiac arrhythmia ICD Codes: I49.9 - Cardiac arrhythmia, unspecified (3) Smoker ICD Codes: F17.200 - Nicotine dependence, unspecified, uncomplicated (4) Quadriceps tendon rupture Status: Acute ICD Codes: S76.119A - Strain of unspecified quadriceps muscle, fascia and tendon, initial encounter (5) Osteoarthritis of left knee Status: Acute ICD Codes: M17.12 - Unilateral primary osteoarthritis, left knee (6) HLD (hyperlipidemia) Status: Chronic ICD Codes: E78.5 - Hyperlipidemia, unspecified (7) HTN (hypertension) Status: Chronic ICD Codes: I10 - Essential (primary) hypertension (8) GERD (gastroesophageal reflux disease) Status: Chronic ICD Codes: K21.9 - Gastro-esophageal reflux disease without esophagitis JUAN JOSE SNYDER DO Aug 28, 2019 10:58
[2019-08-28] MEDS ORDERED: ONDANSETRON 4 MG/2 ML (SDV) Z0FRAN IVP PRN (11:00)
[2019-08-28] MEDS ORDERED: diphenhydrAMINE 50 MG/ML INJ (BENADRYL) IVP PRN (11:00)
--- NOTE | 2019-08-28 11:01 | Physical Therapy Evaluation ---
PT Evaluation-General Medical Diagnosis Admission Date Medical Diagnosis: left TKA Onset Date: August 22, 2019 Therapy Diagnosis Therapy Diagnosis: impaired mobility, strength, endurance, ROM Height/Weight Height (Feet): 5 Height (Inches): 4.00 Weight (Pounds): 183 Weight (Ounces): 5.0 Weight Bear Status Left Lower Extremity: Left Weight Bearing/Tolerated Referral Physician: Marichuy Stafford DO Reason for Referral: Evaluation/Treatment Medical History Additional Medical History PAST MEDICAL HISTORY: arrhythmia, back pain, reflux, osteogenesis imperfecta, hyperlipidemia, sciatica. PAST SURGICAL HISTORY: Ear, right patellar tendon repair, right meniscus repair, incisional herniorrhaphy, cholecystectomy, small finger flexor tendon repair, right oophorectomy, left Achilles repair, colonoscopy. Current History Patient also had surgery to repair a patellar tendon tear and now has to wear a left leg brace with knee ROM from 0-20 degrees. Reviewed History: Yes Social History Home: Single Level Entry Into Home: Stairs With Railing PT Steps Into Home: 3 Prior Prior Level of Function SCALE: Activities may be completed with or without assistive devices. 7-Itpolbpigm-xfcnxkx completes the activity by him/herself with no assistance from a helper. 5-Set-up or Clean-up Assistance-helper sets up or cleans up; patient completes activity. [place] assists only prior to or following the activity. 4-Supervision or Touching Assistance-helper provides verbal cues and/or touching/steadying and/or contact guard assistance as patient completes activity. Assistance may be provided throughout the activity or intermittently. 3-Partial/Moderate Assistance-helper does LESS THAN HALF the effort. [place] lifts, holds or supports trunk or limbs, but provides less than half the effort. 2-Substantial/Maximal Assistance-helper does MORE THAN HALF the effort. [place] lifts or holds trunk or limbs and provides more than half the effort. 4-Jsbtpxzmg-otyneh does ALL the effort. Patient does none of the effort to complete the activity. Or, the assistance of 2 or more helpers is required for the patient to complete the activity. If activity was not attempted, code reason: 7-Patient Refused. 9-Not Applicable-not attempted and the patient did not perform the activity before the current illness, exacerbation or injury. 10-Not Attempted due to Environmental Limitations-(lack of equipment, weather restraints, etc.). 88-Not Attempted due to Medical Conditions or Safety Concerns. Bed Mobility: 6 Transfers (B,C,W/C): 6 Gait: 6 Stairs: 6 Indoor Mobility (Ambulation): Independent Stairs: Independent Prior Device Use: SPC PT Evaluation-Current Subjective Patient in bed pre tx, agrees to PT, has 6/10 pain in left leg. Pt/Family Goals to be independent at home Objective Patient Orientation: Person, Place, Situation left knee brace Sensory Vision: Wears Glasses Hearing: Functional Sensation Right Lower Extremit: Intact Sensation Left Lower Extremity: Intact Transfers Roll Left to Right (QC): 6 Sit to Lying (QC): 3 Lying to Sitting/Side of Bed(Q: 6 Sit to Stand (QC): 4 Chair/Kiq-vk-Kqpws Xfer(QC): 4 Toilet Transfer (QC): 4 Car Transfer (QC): 88 Patient performs bed mobility with independence, supine to sit with independence, sit to supine with min assist, sit <-> stand SBA, transfers SBA. No car transfer because she cannot her her leg with the brace inside. Gait Does the Patient Walk?: Yes Mode of Locomotion: Walk Anticipated Mode of Locomotion: Walk Walk 10 feet (QC): 4 Walk 50 ft with 2 Turns(QC): 4 Walk 150 ft (QC): 4 Walking 10ft/uneven surface-QC: 4 Distance: 150' Gait Assistive Device: FWW Comments/Gait Description Patient can ambulate 150' with a rolling walker with CGA (including 50' with at least 2 turns of 90 degrees and 10' over an uneven surface). Patient has antalgic gait, slow, but steady. Wheelchair Training Wheel 50 ft with 2 turns (QC): 9 Wheel 150 ft (QC): 9 Stairs 1 Step (curb) (QC): 88 4 Steps (QC): 88 12 Steps (QC): 88 No stairs performed at this time due to pain and fatigue after ambulation. Balance Sitting Static: Normal Sitting Dynamic: Normal Standing Static: Good Standing Dynamic: Good Picking up an Object (QC): 88 Treatment Supine exercises LLE (AP, QS, GS), x20 Assessment/Needs Patient has impaired mobility, strength, endurance, ROM. She fatigues quickly but has good balance during ambulation and transfers. Patient in bed post tx with nurse call, phone, tray, all needs met. Rehab Potential: Fair PT Short Term Goals Short Term Goals Time Frame: Sep 04, 2019 Roll Left & Right: 6 Sit to lyin Lying to sitting on side of be: 6 Sit to stand: 5 Chair/vss-lo-zxcca transfer: 5 Walk 10 feet: 5 Walk 50 feet with two turns: 5 Walk 150 feet: 5 PT Purchase Order Checker Goals Purchase Order Checker Goals PT Halfway Goals Time Frame: Sep 18, 2019 Roll Left & Right (QC): 6 Sit to Lying (QC): 6 Lying-Sitting on Side/Bed(QC): 6 Sit to Stand (QC): 6 Chair/Vml-nq-Irgjp Xfer(QC): 6 Toilet Transfer (QC): 6 Car Transfer (QC): 6 Does the Patient Walk: Yes Walk 10 feet (QC): 6 Walk 50ft with 2 Turns (QC): 6 Walk 150 ft (QC): 6 Walking 10ft on Uneven Surface: 6 1 Step (curb) (QC): 4 4 Steps (QC): 4 12 Steps (QC): 88 Picking up an Object (QC): 88 Wheel 50 feet with 2 turns (QC: 9 Wheel 150 feet: 9 PT Plan Problem List Problem List: Activity Tolerance, Functional Strength, Safety, Balance, Gait, Transfer, Bed Mobility, ROM Treatment/Plan Treatment Plan: Continue Plan of Care Treatment Plan: Bed Mobility, Education, Functional Activity Alexsandra, Functional Strength, Group Therapy, Gait, Safety, Therapeutic Exercise, Transfers Treatment Duration: Sep 18, 2019 Frequency: At least 5 of 7 days/Wk (IRF) Estimated Hrs Per Day: 1.5 hours per day Patient and/or Family Agrees t: Yes Safety Risks/Education Patient Education: Gait Training, Transfer Techniques, Reviewed Precautions, Correct Positioning, Safety Issues Teaching Recipient: Patient Teaching Methods: Demonstration, Discussion Response to Teaching: Reinforcement Needed Discharge Recommendations Plan Patient will perform bed mobility and transfer training, balance and endurance training, functional strengthening, stair training, gait training, and education, to improve functional mobility and independence at home. Therapy Discharge Recommendati: Home & Family Time/GCodes Time In: 1005 Time Out: 1100 Total Billed Treatment Time: 55 Total Billed Treatment 1 visit GT 15' EVM 30' EX 10' VICENTE TORO PT Aug 28, 2019 11:01
[2019-08-28 11:53] VITALS: BP 119/75
[2019-08-28] MEDS: oxyCODONE/APAP 5/325MG (PERCOCET 5) TABLET PO PRN ×5 (11:55→23:10)
--- OUTSIDE RECORDS SUMMARY | 2019-08-28 12:27 | XMS REPORT ---
Author Author [employer] clinical editor [facility] [employer] [facility] Zahroof Valves Address [address] [address] Care Team Providers Care Center Machine Set Up Operator Name Role Phone ISABEL KIRBY Unavailable Dany GARNETT MD Unavailable Unavailable REFUGIO MANZANARES Unavailable JUANJO AMADOR MA Unavailable Unavailable REFUGIO MANZANARES MD Unavailable Unavailable REFUGIO MANZANARES MD Unavailable Unavailable Unavailable Unavailable Unavailable Unavailable Unavailable Unavailable Allergies No Information Medications Medication Ingredient Drug Dose Dates Status Sig Sig Care Class(es) (Normalized) (Original) Provid er no Aspirin no 10-13-19 Complete no Aspirin (no information (Aspirin Ec information 18 d information (A spirin Ec phone) (3 81 Mg) 81 81 Mg) 81 Mg sources.) Mg Tabec, Tabec, 81 Mg 81 Mg Oral Oral Daily Discontinued calcium calcium no 1500 Complete take 1 Calcium (no carbonate carbonate information mg d tablet by Carbonate phone) 1500 mg mouth once (Calcium) oral tablet daily 600 Mg (3 Tablet 600 sources.) Mg ORAL Daily no Calcium Cmb no 10-13-19 Complete no Calcium Cmb ( no information 2/D3/Min information 18 d information 2/D3/ Min phone) (3 Cmb34/Gen Cmb34/Gen sources.) (Citracal + (Citracal + Bone Bone Density Density Tablet) 1 Tablet) 1 Each Tablet, Each 1 Each Oral Tablet, 1 Daily Each Oral Discontinued no Gluc no 10-13-19 Complete take 1 Gluc (no information 2KCL/Chondr information 18 d capsule by 2KC L/Chondr/ phone) (3 /Nessa Hy/Hy mouth once Nessa Hy/Hy sources.) Ac daily before Ac (Glucosamin mealtime, (Glucosamine e & then take 1 & Chondroitin capsule by Chondroitin Cap) 1 Each mouth Cap) 1 Each Capsule, 1 Capsule, 1 Cap Oral Cap Oral Daily Discontinued no Glucosa Stone no Complete take 1 Glucosa Stone (no information 2KCL/Chondr information d capsule by 2KCL/C hondro phone) (3 oitin Stone mouth once itin Stone sources.) (Glucosamin daily, then (Glucosamine e & take 1 & Chondroitin capsule by Chondroitin Cap) 1 Each mouth Cap) 1 Each Capsule Capsule 1 Each ORAL Daily no Multivitami no 10-13-19 Complete no Multivitamin (no information n (Multi information 18 d information (Mult i phone) (3 Vitamin Vitamin sources.) Daily) 1 Daily) 1 Each Each Tablet, Tablet, 1 1 Tab Oral Tab Oral Daily Discontinued naproxen naproxen Nonsteroida 220 mg Complete take 1 Naproxen ( no sodium 220 l d capsule by Sodium phone) mg oral Anti-inflam mouth twice (Aleve) 220 capsule (3 matory Drug daily Mg Capsule sources.) 220 Mg ORAL Twice A Day no Oxycodone no 02-24-20 Complete take 5-325 Oxycodone T rent information Hcl/Acetami information 12 - d tablets by Hcl /Acetamin A (3 nophen 10-04-19 mouth every ophen Makayla sources.) (Percocet 13 six hours as (Percocet (no 5-325 Mg needed, then 5-325 Mg phone) Tablet) 1 take 1-1 Tablet) 1 Each tablets by Each Tablet, Tablet, 1 - mouth as 1 - 2 Each 2 Each Oral needed Oral Every 6 Hours as needed 02/24/12 Discontinued Problems Active Problems Problem Normalized Date Last Normalized Normalized Provider Fa cility Classification Problem(s) Recorded Problem Problem Sta tus Duration NEGATED Aftercare for Episodic Active no name no infor mation no healing information (4 traumatic sources.) fracture of lower leg Translations: [ FRACTURE PATELLA-CLOSED ] Other Body mass 08-23-2019 - Chronic Active REFUGIO MANZANARES [facility] Via nutritional; index (BMI) , [facility] endocrine; and 33.0-33.9, Hospital - metabolic adult [place] disorders (1 (11753) source.) Other Care involving Episodic Active no name no info rmation aftercare (3 other physical sources.) therapy Other lower Cough Episodic Active no name no informat ion respiratory disease (4 sources.) Spondylosis; Dorsalgia, 08-23-2019 - Episodic Active REFUGIO MIKE [facility] Via intervertebral unspecified , [facility] disc Hospital - disorders; [place] other back (27478) problems (1 source.) Immunizations Encounter for 08-22-2019 - Episodic Active KEM JENKINS LEIGHTON [facility] Via and screening screening for , MD [facility] for infectious other Hospital - disease (7 bacterial [place] sources.) diseases (55130) Translations: [ SCREEN-BACTERI AL DIS NEC, ENCOUNTER FOR SCREENING FOR OTHER VIRAL ] Essential Essential 08-23-2019 - Chronic Active REFUGIO ELLISMerritt A [facility] Via hypertension (primary) , [facility] (4 sources.) hypertension [facility] (02222) Esophageal Gastro-esophag 08-23-2019 - Chronic Active REFUGIO ELLISGLENNA [facility] Via disorders (1 eal reflux , [facility] source.) disease Hospital - without [place] esophagitis (80727) Other senior living Episodic Active ALI AGGIE , [facility] Via aftercare (6 (current) use YANNI [facility] sources.) of aspirin [facility] (31211) NEGATED Long-term Episodic Active no name no informati on no (current) use information (6 of aspirin sources.) NEGATED Long-term Episodic Active no name no informati on no (current) use information (9 of other sources.) medications NEGATED Nicotine Chronic Active no name [facility] Via kedar dependenceNazia information (3 cigarettes, Hospital - sources.) uncomplicated [place] ([address]130) Other Obesity, 08-23-2019 - Chronic Active REFUGIO ELLISGLENNA [facility] Via nutritional; unspecified [facility]; and Hospital - metabolic [place] disorders (1 (08621) source.) Other 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-23-2019 - Chronic Active REFUGIO CRUZSandy KAITLIN [facility] Via congenital imperfecta [facility] anomalies (4 Hospital - sources.) [place] ([address]1799) Osteoporosis Osteoporosis, Chronic Active no name no in formation (3 sources.) unspecified Disorders of Other and 08-23-2019 - Chronic Active ALI AGGIE , [facility] Via lipid unspecified YANNI [facility] metabolism (16 hyperlipidemia Hospital - sources.) Translations: [place] [ OTHER (19922) HYPERLIPIDEMIA , HYPERLIPIDEMIA , UNSPECIFIED, PURE HYPERCHOLESTER OLEMIA, UNSPECIFIED] NEGATED Other chest Episodic Active no name no informa tion no pain information (6 sources.) Other Other long Episodic Active ALI AGGIE , [facility] Via aftercare (3 term (current) YANNI [facility] sources.) drug therapy [facility] (57210) NEGATED Other no information Active no name no infor mation no premature information beats (12 sources.) Translations: [ TACHYCARDIA NOS, PALPITATIONS, VENTRICULAR PREMATURE DEPOLARIZATION , PALPITATIONS, PREMATURE BEATS NEC] Unclassified Other Episodic Active no name no informa tion (3 sources.) screening mammogram Other upper Other seasonal 08-23-2019 - Chronic Active CALEB ELLISTA [facility] Via respiratory allergic , [facility] disease (1 rhinitis Hospital - source.) [place] ([address]) Other Other Chronic Active ALI AGGIE , [facility] Via circulatory specified YANNI [facility] disease (3 disorders of Hospital - sources.) arteries and [place] arterioles (19370) NEGATED Other sprains Episodic Active no name no infor mation no and strains of information (6 ankle sources.) NEGATED Other tear of no information Active no name [facility] Via no lateral Nazia information (3 meniscus, Hospital - sources.) current [place] injury, left (53450) knee, initial encounter Translations: [ OTH TEAR OF MEDIAL MENISCUS, CURRENT INJ, CHONDROMALACIA PATELLAE, LEFT KNEE] NEGATED Other tear of Episodic Active no name no infor mation no medial information meniscus, (18 sources.) current injury, right knee, initial encounter Translations: [ OTH TEAR OF MEDIAL MENISCUS, CURRENT INJ] Cardiac Palpitations Episodic Active ALI AGGIE , [facility] Vi a dysrhythmias YANNI [facility] (3 sources.) [facility] (72071) Screening and Personal 08-23-2019 - Episodic Active REFUGIO MEDINAYadira [facility] Via history of history of , [facility] mental health nicotine Hospital - and substance dependence [place] abuse codes (1 (03727) source.) Heart valve Rheumatic Chronic Active ALI AGGIE , [facility] Via disorders (3 tricuspid YANNI [facility] sources.) insufficiency [facility] (06091) Other lower Shortness of Episodic Active ALI AGGIE , [facility] Via respiratory breath YANNI [facility] disease (13 Hospital - sources.) [place] (46926) Residual Tobacco use Episodic Active MD TAMIR Not Avai lable codes; (07244) unclassified (17 sources.) Osteoarthritis Unilateral 08-22-2019 - Chronic Active REFUGIO ELLISTA [facility] Via (2 sources.) primary , [facility] osteoarthritis Hospital - , left knee [place] (80769) Cardiac Ventricular Chronic Active MD TAMIR Not Avai lable dysrhythmias premature (42644) (16 sources.) depolarization Translations: [ VENTRICULAR TACHYCARDIA] Past or Other Problems Problem Normalized Date Last Normalized Normalized Provider Adria mercedes Classification Problem(s) Recorded Problem Problem Sta tus Duration NEGATED Exposure to no information no information no name no information no other information (9 specified sources.) factors, initial encounter Translations: [ ACCIDENT NOS] NEGATED Fall on same no information no information no name [facility] tripping and [place] stumbling (11032) without subsequent striking against object, initial encounter Translations: [ FALL STRIKING OBJECT NEC, UNSPECIFIED FALL, SUBSEQUENT ENCOUNTER] Other injuries Knee, leg, Episodic Completed Pham OSORIO ot Available and conditions ankle, and MD (11044) due to foot injury external causes (1 source.) NEGATED Other external no information no information no name no information no cause status information (7 sources.) NEGATED Private garage no information no information no name [facility] Via no of [facility] information (7 [facility] - sources.) (private) [facility] as the ([address]) place of occurrence of the external cause Translations: [ ACCIDENT IN HOME] Procedures Procedure Normalized Procedure Procedure Result Performer Facility Date 10-19-2017 Arthroscopic partial no information REFUGIO May Via [facility] medial meniscectomy [place] ([address]67) 08-22-2019 REPLACE OF L KNEE JT no information no name H Via [facility] WITH SYNTH SUB, [facility] (14876) Immunizations Normalized Immunization Date Notes Care Provider Facili ty Immunization vaccine no information ISABEL KIRBY Via [facility] ospital Translations: [ [address] [place] ([address]59) vaccine] Results Test Name Value Interpretation Reference Range Date Time Adria mercedes (Normalized) (Normalized) (Medline Reference) not yet categorized on 2019-08-25 no information NAME: YADIRA FRANCES (no code) PENDING LOCAT ION K ~MED REC#: [facility] ([id number]) [id number] ~ ~PHYSICIAN: FIONA PERES WORM PACKER ~General ~Patient Condition ~Mental Status/LOC: Same as Preop ~Cardiovascular: Satisfactory ~Nausea/Vomiting : Absent ~Respiratory: Satisfactory ~Pain: Controlled ~Complications: Absent ~ ~Post Op Complications ~Complications ~None ~ ~Follow Up Care/Instruction s ~Patient Instructions ~None needed. ~ ~Anesthesia/Bridget ent Condition ~Patient Condition ~Patient is doing fair, complaints of pain that patient said is relieved with pain medication by ~mouth, stable vital signs, no apparent adverse anesthesia problems. ~No complications reported per nursing. Patient is making plans for inpatient rehab. ~ ~ ~ ~FIONA PERES CRNA August 25, 2019 10:20 ~ ~ ~<Created by FIONA PERES CRNA> ~<Electronically signed by FIONA PERES CRNA> 08/25/19 1020 ~ ~ laboratory on 2019-08-25 Hematocrit (Bld) 27 % (L) 36.1 - 50.3 % 08-25-2019 P ENDING LOCATION [Volume 02:11-0400 [facility] (38110) fraction] Hemoglobin (Bld) 8.4 g/dL (L) 12.1 - 17.2 g/dL 08-25-2019 PENDING LOCATION [Mass/Vol] 02:11-0400 [facility] (96010) not yet categorized on 2019-08-24 no information NAME: YADIRA FRANCES (no code) PENDING LOCAT ION K ~MED REC#: [facility] ([id number]) [id number] ~ ~PHYSICIAN: WILVER GRIMM PT ~PT Daily Note-Current ~Subjective ~Patient reports she is having surgery on this date. ~ ~Transfers ~SCALE: Activities may be completed with or without assistive devices. ~ ~2-Moxvzlrabc-au tient completes the activity by him/herself with no assistance from a helper. ~5-Set-up or Clean-up Assistance-helpe r sets up or cleans up; patient completes activity. Crawford ~assists only prior to or ~ following the activity. ~4-Supervision or Touching Assistance-helpe r provides verbal cues and/or touching/steadyi ng and/or ~contact guard assistance as patient completes activity. Assistance may be provided ~ throughout the activity or intermittently. ~3-Partial/Moder ate Assistance-helpe r does LESS THAN HALF the effort. Crawford lifts, holds or supports~trunk or limbs, but provides less than half the effort. ~2-Substantial/M aximal Assistance-helpe r does MORE THAN HALF the effort. [place] lifts or holds trunk ~or limbs and provides more than half the effort. ~3-Caqxlashw-fzr per does ALL the effort. Patient does none of the effort to complete the activity. ~Or, the assistance of 2 or more helpers is required for the patient to complete the ~ activity. ~If activity was not attempted, code reason: ~7-Patient Refused. ~9-Not Applicable-not attempted and the patient did not perform the activity before the current ~illness, exacerbation or injury. ~10-Not Attempted due to Environmental Limitations-(lac k of equipment, weather restraints, etc.). ~88-Not Attempted due to Medical Conditions or Safety Concerns. ~ ~Weight Bearing ~Left Lower Extremity: Left ~Weight Bearing/Tolerate d ~ ~Exercises ~Supine Ex: Ankle pumps, Heel Slides, Short Arc Quads, Straight leg raise ~Supine Reps: 12 ~ ~Assessment ~Attempted to activate left quad with exercise, however, unable to. Patient to have repair per ~patient and physician report. ~ ~PT Snf Goals ~Snf Goals ~PT Instrument Calibrator Goals Time Frame: Aug 29, 2019 ~Roll Left Right (QC): 6 ~Sit to Lying (QC): 6 ~Lying-Sitting on Side/Bed(QC): 6 ~Sit to Stand (QC): 5 ~Chair/Bed-to- air Xfer(QC): 5 ~Walk 10 feet (QC): 5 ~Walk 50ft with 2 Turns (QC): 5 ~Walk 150 ft (QC): 5 ~1 Step (curb) (QC): 4 ~4 Steps (QC): 4 ~ ~PT Plan ~Treatment/Plan ~Treatment Plan: Continue Plan of Care ~Treatment Plan: Bed Mobility, Education, Functional Activity Alexsandra, Functional Strength, Gait, ~Safety, Therapeutic Exercise, Transfers ~Treatment Duration: Aug 29, 2019 ~Frequency: 11 times per week ~Estimated Hrs Per Day: .25 hour per day ~Patient and/or Family Agrees t: Yes ~ ~Time/GCodes ~Time In: 820 ~Time Out: 828 ~Total Billed Treatment Time: 8 ~Total Billed Treatment ~1 visit ~EX 8 min ~ ~ ~ ~WILVER GRIMM PT August 24, 2019 09:23 ~ ~ ~<Created by WILVER GRIMM PT> ~<Electronically signed by WILVER GRIMM PT> 08/24/19 0923 ~ ~ no information NAME: YADIRA FRANCES (no code) PENDING LOCAT ION K ~MED REC#: [facility] [id number]) [id number] ~ ~PHYSICIAN: REFUGIO MANZANARES MD ~Post-Operative Progess Note ~Surgeon (s)/Police Liaison (s) ~Surgeon ~REFUGIO MANZANARES MD ~Police Liaison: Paolo Correa ~ ~Pre-Operative Diagnosis ~left quadriceps tendon disruption ~ ~Post-Operative Diagnosis ~ ~left quadriceps tendon disruption ~ ~Procedure Operative Findings ~Date of Procedure ~08/24/19 ~Procedure Performed/Findin gs ~left quadriceps tendon repair ~Anesthesia Type ~GETA ~ ~Estimated Blood Loss ~Estimated blood loss (mL): 100 ml ~ ~Specimens/Packi ng ~Specimens Removed ~none ~Packing: ~none ~ ~ ~ ~REFUGIO MANZANARES MD August 24, 2019 11:55 ~ ~ ~<Created by REFUGIO MANZANARES MD> ~<Electronically signed by REFUGIO MANZANARES MD> 08/24/19 1335 ~ ~ laboratory on 2019-08-24 Hematocrit (Bld) 30 % (L) 36.1 - 50.3 % 08-24-2019 P ENDING LOCATION [Volume 01:33-0400 [facility] ([id number]) fraction] Hemoglobin (Bld) 9.5 g/dL (L) 12.1 - 17.2 g/dL 08-24-2019 PENDING LOCATION [Mass/Vol] 01:33-0400 [facility] ([id number]) not yet categorized on 2019-08-23 no information NAME: KOKOYADIRA (no code) PENDING LOCAT ION K ~MED REC#: [facility] [id number]) [id number] ~ ~PHYSICIAN: WILVER GRIMM PT ~PT Daily Note-Current ~Subjective ~Patient reports her left LE "gave out" last night and now cannot put weight through LE or activate ~her quad musculature. ~ ~Pain ~ ~ Numeric Pain Scale: 8 ~ Location: Left ~ Location Body Site: Knee ~ Pain Description: Acute ~ ~Mental Status ~Patient Orientation: Normal For Age ~Attachments: IV ~ ~Transfers ~SCALE: Activities may be completed with or without assistive devices. ~ ~4-Uzsrtdzyhp-fn tient completes the activity by him/herself with no assistance from a helper. ~5-Set-up or Clean-up Assistance-helpe r sets up or cleans up; patient completes activity. Crawford ~assists only prior to or ~ following the activity. ~4-Supervision or Touching Assistance-helpe r provides verbal cues and/or touching/steadyi ng and/or ~contact guard assistance as patient completes activity. Assistance may be provided ~ throughout the activity or intermittently. ~3-Partial/Moder ate Assistance-helpe r does LESS THAN HALF the effort. [place] lifts, holds or supports~trunk or limbs, but provides less than half the effort. ~2-Substantial/M aximal Assistance-helpe r does MORE THAN HALF the effort. [place] lifts or holds trunk ~or limbs and provides more than half the effort. ~3-Cgjzgyfut-ojj per does ALL the effort. Patient does none of the effort to complete the activity. ~Or, the assistance of 2 or more helpers is required for the patient to complete the ~ activity. ~If activity was not attempted, code reason: ~7-Patient Refused. ~9-Not Applicable-not attempted and the patient did not perform the activity before the current ~illness, exacerbation or injury. ~10-Not Attempted due to Environmental Limitations-(lac k of equipment, weather restraints, etc.). ~88-Not Attempted due to Medical Conditions or Safety Concerns. ~Roll Left Right (QC): 6 ~Lying to Sitting/Side of Bed(Q: 6 ~Sit to Stand (QC): 3 ~Chair/Bed-to- air Xfer(QC): 3 ~patient unable to weight bear or activate quad ~ ~Weight Bearing ~Left Lower Extremity: Left ~Weight Bearing/Tolerate d ~ ~Gait Training ~Does the Patient Walk?: No and Walking Goal IS indicated ~ ~Exercises ~Supine Ex: Ankle pumps, Heel Slides, Straight leg raise (PROM ) ~Supine Reps: 12 ~Seated Therapy Exercises: Ankle pumps, Long arc quads (PROM) ~Seated Reps: 15 ~ ~Assessment ~During treatment, patient unable to activate left quadriceps. PT did have second PT assess patient ~and agrees. PT attempted to call physician cell and office and left a message on findings. Patient ~does have active left dorsiflexion and plantarflexion left foot. It is noted that patient is ~utilizing left hip flexor to attempt to active quad. ~ ~PT Snf Goals ~Snf Goals ~PT Instrument Calibrator Goals Time Frame: Aug 29, 2019 ~Roll Left Right (QC): 6 ~Sit to Lying (QC): 6 ~Lying-Sitting on Side/Bed(QC): 6 ~Sit to Stand (QC): 5 ~Chair/Bed-to-Ch air Xfer(QC): 5 ~Walk 10 feet (QC): 5 ~Walk 50ft with 2 Turns (QC): 5 ~Walk 150 ft (QC): 5 ~1 Step (curb) (QC): 4 ~4 Steps (QC): 4 ~ ~PT Plan ~Treatment/Plan ~Treatment Plan: Continue Plan of Care ~Treatment Plan: Bed Mobility, Education, Functional Activity Alexsandra, Functional Strength, Gait, ~Safety, Therapeutic Exercise, Transfers ~Treatment Duration: Aug 29, 2019 ~Frequency: 11 times per week ~Estimated Hrs Per Day: .25 hour per day ~Patient and/or Family Agrees t: Yes ~ ~Time/GCodes ~Time In: 1011 ~Time Out: 1036 ~Total Billed Treatment Time: 25 ~Total Billed Treatment ~1 visit ~EX x 2 25 min ~ ~ ~ ~WILVER GRIMM PT August 23, 2019 11:08 ~ ~ ~<Created by WILVER GRIMM PT> ~<Electronically signed by WILVER GRIMM PT> 08/23/19 1108 ~ ~ no information NAME: YADIRA FRANCES (no code) PENDING LOCAT ION K ~MED REC#: [facility] ([id number]) [id number] ~ ~PHYSICIAN: JOANIE WAITE MD ~Subjective ~HPI/CC On Admission ~Date Seen by Provider: August 23, 2019 ~Time Seen by Provider: 09:05 ~Yadira Frances is a 62-year-old female with past medical history of hypertension, hyperlipidemia, GERD, ~osteoarthritis, who presented for a left total knee arthroplasty. The hospitalist services been ~consulted for medical comanagement. She underwent the procedure today and reports that it went ~well. She denies any complaints or concerns at this time. She denies any fevers or chills. She ~denies any chest pain or shortness of breath. She denies any abdominal pain, nausea, vomiting, ~constipation, or diarrhea. She denies any dysuria. She denies any rash. ~Subjective/Even ts-last exam ~she reports that she was getting out of bed last night and her knee popped. She says of the like ~her femur slid forward over her knee. She is feeling better this morning. She has had some nausea.~ She is having some acid reflux. She denies any fevers or chills. She denies any chest pain or ~shortness of breath. She denies any abdominal pain. ~ ~Objective ~Exam ~Vital Signs ~ ~Vital Signs ~ ~ ~ Date Time Temp Pulse Resp B/P (MAP) Pulse Ox O2 Delivery O2 Flow Rate FiO2 ~ ~08/23/19 08:00 36.9 79 20 135/81 (99) 97 Room Air ~ ~08/22/19 14:40 2.00 ~ ~Capillary Refill : Less Than 3 SecondsLess Than 3 Seconds ~General Appearance: No Apparent Distress, Obese ~HEENT: PERRL/EOMI, Pharynx Normal ~Neck: Normal Inspection, Supple ~Respiratory: Lungs Clear, Normal Breath Sounds, No Respiratory Distress ~Cardiovascular: Regular Rate, Rhythm, No Edema, No Murmur ~Gastrointestina l: Normal Bowel Sounds, Non Tender, Soft ~Extremity: Normal Inspection, Non Tender, Pedal Edema ~Neurologic/Psyc hiatric: Alert, Oriented x3, No Motor/Sensory Deficits ~Skin: Normal Color, Warm/Dry ~ ~Results/Procedu res ~Lab ~Laboratory Tests ~08/23/19 05:05 ~ ~ ~Patient resulted labs reviewed. ~Imaging: Reviewed Imaging Report ~ ~Assessment/Plan ~Assessment and Plan ~Assess Plan/Chief Complaint ~Osteoarthritis of left knee ~Status post total knee arthroplasty ~ Orthopedic Surgery primary ~ continue pain regimen ~ continue bowel regimen ~ Incentive spirometery ~ PT/OT ~ ~Hypertension ~Hyperlipidemia ~GERD ~ Continue home meds ~ ~DVT prophylaxis: Lovenox ~ ~Diagnosis/Probl ems ~Diagnosis/Probl ems ~ ~(1) Osteoarthritis of left knee ~Status: Acute ~Qualifiers: ~ Osteoarthritis type: primary Qualified Codes: M17.12 - Unilateral primary osteoarthritis, left~knee ~(2) S/P total knee arthroplasty ~Status: Acute ~Qualifiers: ~ Laterality: left Qualified Codes: Z96.652 - Presence of left artificial knee joint ~(3) HTN (hypertension) ~Status: Chronic ~Qualifiers: ~ Hypertension type: essential hypertension Qualified Codes: I10 - Essential (primary) ~hypertension ~(4) HLD (hyperlipidemia) ~Status: Chronic ~(5) GERD (gastroesophagea l reflux disease) ~Status: Chronic ~Qualifiers: ~ Esophagitis presence: esophagitis presence not specified Qualified Codes: K21.9 - Gastro-~esophage al reflux disease without esophagitis ~ ~Clinical Quality Measures ~DVT/VTE Risk/Contraindic ation: ~Risk Factor Score Per Nursin ~RFS Level Per Nursing on Admit: 4+=Very High ~ ~ ~ ~JOANIE WAITE MD August 23, 2019 12:07 ~ ~ ~<Created by JOANIE WAITE MD> ~<Electronically signed by JOANIE WAITE MD> 08/23/19 1207 ~ ~ no information NAME: YADIRA FRANCES (no code) PENDING [facility] REC#: [facility] [id number] ~ ~PHYSICIAN: FRANKLIN SILVA CRNA ~General ~Patient Condition ~Mental Status/LOC: Same as Preop ~Cardiovascular: Satisfactory ~Nausea/Vomiting : Absent ~Respiratory: Satisfactory ~Pain: Controlled ~Complications: Absent ~ ~Post Op Complications ~Complications ~None ~ ~Follow Up Care/Instruction s ~Patient Instructions ~None needed. ~ ~Anesthesia/Bridget ent Condition ~Patient Condition ~Patient is doing well, no complaints, stable vital signs, no apparent adverse anesthesia problems. ~ ~No complications reported per nursing. ~ ~ ~ ~FRANKLIN SILVA WORM PACKER August 23, 2019 12:29 ~ ~ ~<Created by FRANKLIN SILVA WORM PACKER> ~<Electronically signed by FRANKLIN SILVA WORM PACKER> 08/23/19 1229 ~ ~ no information NAME: YADIRA FRANCES (no code) PENDING [facility] REC[facility] [id number] ~ ~PHYSICIAN: WILVER GRIMM PT ~PT Daily Note-Current ~Subjective ~Patient agrees to PT. PT educated patient on knee immobilizer use to increase mobility. Patient ~agrees to use. ~ ~Pain ~ ~ Numeric Pain Scale: 5-Moderate Pain ~ Location: Left ~ Location Body Site: Knee ~ Pain Description: Acute ~ ~Mental Status ~Patient Orientation: Normal For Age ~Attachments: IV ~ ~Transfers ~SCALE: Activities may be completed with or without assistive devices. ~ ~5-Aymqjhgpmy-ji tient completes the activity by him/herself with no assistance from a helper. ~5-Set-up or Clean-up Assistance-helpe r sets up or cleans up; patient completes activity. Crawford ~assists only prior to or ~ following the activity. ~4-Supervision or Touching Assistance-helpe r provides verbal cues and/or touching/steadyi ng and/or ~contact guard assistance as patient completes activity. Assistance may be provided ~ throughout the activity or intermittently. ~3-Partial/Moder ate Assistance-helpe r does LESS THAN HALF the effort. Crawford lifts, holds or supports~trunk or limbs, but provides less than half the effort. ~2-Substantial/M aximal Assistance-helpe r does MORE THAN HALF the effort. Crawford lifts or holds trunk ~or limbs and provides more than half the effort. ~5-Rgtsaskhn-snt per does ALL the effort. Patient does none of the effort to complete the activity. ~Or, the assistance of 2 or more helpers is required for the patient to complete the ~ activity. ~If activity was not attempted, code reason: ~7-Patient Refused. ~9-Not Applicable-not attempted and the patient did not perform the activity before the current ~illness, exacerbation or injury. ~10-Not Attempted due to Environmental Limitations-(lac k of equipment, weather restraints, etc.). ~88-Not Attempted due to Medical Conditions or Safety Concerns. ~Sit to Stand (QC): 5 ~Toilet Transfer (QC): 5 ~ ~Weight Bearing ~Left Lower Extremity: Left ~Weight Bearing/Tolerate d ~ ~Gait Training ~Does the Patient Walk?: Yes ~Distance: 40' ~Walk 10 feet (QC): 4 ~Gait Assistive Device: FWW ~knee immobilizer in place left knee ~ ~Exercises ~Seated Therapy Exercises: Ankle pumps, Long arc quads (PROM), Hip flexion ~Seated Reps: 15 ~ ~Assessment ~Patient remains up in recliner. Nursing staff instructed to place left knee immobilizer on patient ~prior to OOB or chair activity. PA notified this PT on assessment in a.m. PT to address functional~mobil ity as tolerated by patient. ~ ~PT Snf Goals ~Snf Goals ~PT Instrument Calibrator Goals Time Frame: Aug 29, 2019 ~Roll Left Right (QC): 6 ~Sit to Lying (QC): 6 ~Lying-Sitting on Side/Bed(QC): 6 ~Sit to Stand (QC): 5 ~Chair/Bed-to-Ch air Xfer(QC): 5 ~Walk 10 feet (QC): 5 ~Walk 50ft with 2 Turns (QC): 5 ~Walk 150 ft (QC): 5 ~1 Step (curb) (QC): 4 ~4 Steps (QC): 4 ~ ~PT Plan ~Treatment/Plan ~Treatment Plan: Continue Plan of Care ~Treatment Plan: Bed Mobility, Education, Functional Activity Alexsandra, Functional Strength, Gait, ~Safety, Therapeutic Exercise, Transfers ~Treatment Duration: Aug 29, 2019 ~Frequency: 11 times per week ~Estimated Hrs Per Day: .25 hour per day ~Patient and/or Family Agrees t: Yes ~ ~Time/GCodes ~Time In: 1305 ~Time Out: 1334 ~Total Billed Treatment Time: 29 ~Total Billed Treatment ~1 visit ~GT 15 min ~EX 14 min ~ ~ ~ ~WILVER GRIMM PT August 23, 2019 14:50 ~ ~ ~<Created by WILVER GRIMM PT> ~<Electronically signed by WILVER GRIMM PT> 08/23/19 1450 ~ ~ laboratory on 2019-08-23 Hematocrit (Bld) 34 % (L) 36.1 - 50.3 % 08-23-2019 P ENDING LOCATION [Volume 01:05-0400 [facility] ([id number]) fraction] Hemoglobin (Bld) 10.9 g/dL (L) 12.1 - 17.2 g/dL 08-23-2019 PENDING LOCATION [Mass/Vol] 01:05-0400 [facility] ([id number]) not yet categorized on 2019-08-22 WRISTBAND NUMBER [id number] (no code) 08-22-2019 PENDING L OCATION 03:13-0400 [facility] ([id number]) laboratory on 2019-08-22 ABO and Rh group AN (no code) 08-22-2019 PENDING L OCATION Nom (Bld) 03:14-0400 [facility] ([id number]) Blood group Negative (no code) 08-22-2019 PENDING LOCATI ON antibody screen 03:33-0400 [facility] ([id number]) Ql laboratory on 2019-08-17 Coronavirus Ab Negative (no code) 08-17-2019 PENDING LOC ATION Qn (S) 09:38-0400 [facility] ([id number]) laboratory on 2019-08-15 ABO and Rh group AN (no code) 08-15-2019 PENDING L OCATION Nom (Bld) 08:07-0400 [facility] ([id number]) Albumin 4.1 g/dL (NEG) 3.4 - 5.4 g/dL 08-15-2019 PENDING LOCATION [Mass/Vol] 07:45-0400 [facility] ([id number]) ALP [Catalytic 98 U/L (NEG) 44 - 147 U/L 08-15-2019 PEND ING LOCATION activity/Vol] 07:45-0400 [facility] ([id number]) ALT [Catalytic 23 U/L (NEG) 4 - 40 U/L 08-15-2019 PENDIN G LOCATION activity/Vol] 07:45-0400 [facility] ([id number]) Amorphous MOD NIKHIL (A) 08-15-2019 PENDING LOCATI ON sediment LM Ql PHOSPHATE 11:20-0400 [facility] ([id number]) (Urine sed) Anion gap 9 mmol/L (NEG) 3 - 11 mmol/L 08-15-2019 PENDING LOCATION [Moles/Vol] 07:45-0400 [facility] ([id number]) AST [Catalytic 21 U/L (NEG) 10 - 34 U/L 08-15-2019 PENDI NG LOCATION activity/Vol] 07:45-0400 [facility] ([id number]) Bacteria LM Ql TRACE (no code) 08-15-2019 PENDING LOC ATION (Urine sed) 11:20-0400 [facility] ([id number]) Basophils (Bld) 0.0 10*3/uL (NEG) 0 - 0.3 10*3/uL 08-15-2019 PENDING LOCATION [#/Vol] 07:45-0400 [facility] ([id number]) Basophils/100 0 % (NEG) 0.5 - 1 % 05-20-2020 PENDING LOCATION WBC (Bld) 07:45-0400 [facility] ([id number]) Bilirubin 0.2 mg/dL (NEG) 0.1 - 1.2 mg/dL 08-15-2019 PENDIN G LOCATION [Mass/Vol] 07:45-0400 [facility] ([id number]) Bilirubin Ql (U) Negative (no code) 08-15-2019 PENDING L OCATION 11:20-0400 [facility] ([id number]) Blood group Negative (no code) 08-15-2019 PENDING LOCATI ON antibody screen 08:21-0400 [facility] ([id number]) Ql Calcium 9.1 mg/dL (NEG) 8.5 - 10.2 mg/dL 08-15-2019 PENDI NG LOCATION [Mass/Vol] 07:45-0400 [facility] ([id number]) Calcium 9.0 mg/dL (NEG) 8.5 - 10.2 mg/dL 08-15-2019 PENDI NG LOCATION [Mass/Vol] 07:45-0400 [facility] ([id number]) Casts LM Ql NONE (no code) 08-15-2019 PENDING LOCATI ON (Urine sed) 11:0400 [facility] ([id number]) Chloride 106 mmol/L (NEG) 95 - 106 mmol/L 08-15-2019 PENDI NG LOCATION [Moles/Vol] 07:45-0400 [facility] ([id number]) Clarity (U) SL CLOUDY (no code) 08-15-2019 PENDING LOCATI ON 11:-0400 [facility] ([id number]) CO2 [Moles/Vol] 24 mmol/L (NEG) 23 - 29 mmol/L 08-15-2019 P ENDING LOCATION 07:45-0400 [facility] ([id number]) Color (U) YELLOW (no code) 08-15-2019 PENDING LOCATI ON 11:20-0400 [facility] ([id number]) Creatinine 0.79 mg/dL (NEG) 08-15-2019 PENDING LOCATI ON [Mass/Vol] 07:45-0400 [facility] ([id number]) Creatinine and > (no code) 08-15-2019 PENDING LOC ATION Glomerular 07:45-0400 [facility] ([id number]) filtration rate.predicted panel - Serum, Plasma or Blood Crystals LM Ql PRESENT (A) 08-15-2019 PENDING LOC ATION (Urine sed) 11:20-0400 [facility] ([id number]) Eosinophils 0.2 10*3/uL (NEG) 0.05 - 0.5 08-15-2019 PENDING LOCATION (Bld) [#/Vol] 10*3/uL 07:45-0400 [facility] ([id number]) Eosinophils/100 2 % (NEG) 1 - 4 % 08-15-2019 PENDIN G LOCATION WBC (Bld) 07:45-0400 [facility] ([id number]) Epithelial 0-2 (no code) 08-15-2019 PENDING LOCATI ON cells.renal LM 11:20-0400 [facility] ([id number]) Ql (Urine sed) Epithelial 2-5 (no code) 08-15-2019 PENDING LOCATI ON cells.squamous 11:20-0400 [facility] ([id number]) LM Ql (Urine sed) Erythrocyte 14.9 % (H) 11.6 - 14.6 % 08-15-2019 PENDIN G LOCATION distribution 07:45-0400 [facility] ([id number]) width (RBC) [Ratio] ESR (Bld) 9 (NEG) 08-15-2019 PENDING LOCATI ON [Velocity] 07:45-0400 [facility] ([id number]) Glucose 138 mg/dL (H) 60 - 125 mg/dL 08-15-2019 PENDING LOCATION [Mass/Vol] 07:45-0400 [facility] ([id number]) Glucose Auto Negative (no code) 08-15-2019 PENDING LOCAT ION test strip Ql 11:20-0400 [facility] ([id number]) (U) Hematocrit (Bld) 41 % (NEG) 36.1 - 50.3 % 08-15-2019 P ENDING LOCATION [Volume 07:45-0400 [facility] ([id number]) fraction] Hemoglobin (Bld) 13.0 g/dL (NEG) 12.1 - 17.2 g/dL 08-15-2019 PENDING LOCATION [Mass/Vol] 07:45-0400 [facility] (66032) INR Coag 0.9 (NEG) 08-15-2019 PENDING LOCATI ON (Platelet poor 07:45-0400 [facility] (20296) plasma or blood) [Relative time] Ketones Auto Negative (no code) 08-15-2019 PENDING LOCAT ION test strip Ql 11:20-0400 [facility] (73314) (U) Leukocyte Negative (no code) 08-15-2019 PENDING LOCATI ON esterase Test 11:20-0400 [facility] ([id number]) strip Ql (U) Lymphocytes 2.4 10*3/uL (NEG) 0.9 - 2.9 08-15-2019 PENDING LOCATION (Bld) [#/Vol] 10*3/uL 07:45-0400 [facility] ([id number]) Lymphocytes/100 31 % (NEG) 20 - 40 % 08-15-2019 PENDIN G LOCATION WBC (Bld) 07:45-0400 [facility] (68841) MCH (RBC) 29 pg (NEG) 27 - 31 pg 08-15-2019 PENDING LOC ATION [Entitic mass] 07:45-0400 [facility] ([id number]) MCHC (RBC) 32 g/dL (NEG) 32 - 36 g/dL 08-15-2019 PENDING LOCATION [Mass/Vol] 07:45-0400 [facility] (96561) MCV (RBC) 91 (NEG) 08-15-2019 PENDING LOCATI ON [Entitic vol] 07:45-0400 [facility] ([id number]) Monocytes (Bld) 0.7 10*3/uL (NEG) 0.3 - 0.9 08-15-2019 PEND ING LOCATION [#/Vol] 10*3/uL 07:45-0400 [facility] ([id number]) Monocytes/100 9 % (NEG) 2 - 8 % 08-15-2019 PENDING LOCATION WBC (Bld) 07:45-0400 [facility] (70647) MRSA isol Org Negative (no code) 08-15-2019 PENDING LOCA TION specific cx Ql 07:25-0400 [facility] ([id number]) (Unsp spec) Mucus Ql (Urine Negative (no code) 08-15-2019 PENDING LO CATION sed) 11:20-0400 [facility] (59952) Neutrophils 4.4 10*3/uL (NEG) 1.7 - 7 10*3/uL 2020 PE NDING LOCATION (Bld) [#/Vol] 07:45-0400 [facility] (50638) Neutrophils/100 58 % (NEG) 40 - 60 % 08-15-2019 PENDIN G LOCATION WBC (Bld) 07:45-0400 [facility] (53800) Nitrite Ql (U) Negative (no code) 08-15-2019 PENDING LOC ATION 11:20-0400 [facility] ([id number]) pH (U) 7.0 [pH] (no code) 4.6 - 8 [pH] 08-15-2019 PENDING L OCATION 11:20-0400 [facility] ([id number]) Platelet mean 9.8 (NEG) 08-15-2019 PENDING LOCA TION volume (Bld) 07:45-0400 [facility] ([id number]) [Entitic vol] Platelets (Bld) 205 10*3/uL (NEG) 150 - 450 08-15-2019 PEND ING LOCATION [#/Vol] 10*3/uL 07:45-0400 [facility] (31889) Potassium 4.2 mmol/L (NEG) 3.7 - 5.2 mmol/L 08-15-2019 PEND ING LOCATION [Moles/Vol] 07:45-0400 [facility] ([id number]) Protein 6.9 g/dL (NEG) 6.4 - 8.3 g/dL 08-15-2019 PENDING LOCATION [Mass/Vol] 07:45-0400 [facility] ([id number]) Protein Ql (U) Negative (no code) 08-15-2019 PENDING LOC ATION 11:20-0400 [facility] ([id number]) PT Coag (PPP) 12.6 s (NEG) 9.4 - 12.5 s 08-15-2019 PENDI NG LOCATION [Time] 07:45-0400 [facility] ([id number]) RBC (Bld) 4.46 10*6/uL (NEG) 4.2 - 6.1 08-15-2019 PENDING L OCATION [#/Vol] 10*6/uL 07:45-0400 [facility] (62812) RBC LM.HPF RARE (no code) 08-15-2019 PENDING LOCATI ON (Urine sed) 11:-0400 [facility] (98160) [#/Area] RBC Ql (U) Negative (no code) 08-15-2019 PENDING LOCATI ON 11:20-0400 [facility] (95032) Sodium 139 mmol/L (NEG) 135 - 145 mmol/L 08-15-2019 PEND ING LOCATION [Moles/Vol] 07:45-0400 [facility] ([id number]) Specific gravity 1.015 (L) 05-2020 PENDING L OCATION (U) [Rel 11:-0400 [facility] (20178) density] Urea nitrogen 14 mg/dL (NEG) 7 - 20 mg/dL 08-15-2019 PENDI NG LOCATION [Mass/Vol] 07:45-0400 [facility] ([id number]) Urea 18 mg/mg (no code) 6 - 22 mg/mg 08-15-2019 PENDING L OCATION nitrogen/Creatin 07:45-0400 [facility] (62252) ine [Mass ratio] Urinalysis NO (no code) 08-15-2019 PENDING LOCATI ON complete W 11:-0400 [facility] ([id number]) Reflex Culture panel - Urine Urobilinogen (U) 0.2 mg/dL (no code) 08-15-2019 PENDING L OCATION [Mass/Vol] 11:20-0400 [facility] (55301) WBC (Bld) 7.6 10*3/uL (NEG) 3.5 - 10.5 08-15-2019 PENDING L OCATION [#/Vol] 10*3/uL 07:45-0400 [facility] (10821) WBC LM.HPF RARE (no code) 08-15-2019 PENDING LOCATI ON (Urine sed) 11:0400 [facility] (71212) [#/Area] methicillin resistant staphylococcus aureus (mrsa) screening culture on 2017-10-12 MRSA presence MRSA not (no code) [facility] (76405) Vital Signs The data below is from unstructured sources Vital Response Date/Time Temperature (Fahrenheit) 98.2 degree s F (97.6 - 99.5) Temperature (Calculated Celsius) 36. 88303 degrees C (36.4 - 37.5) Temperature Source Tympanic Pulse Rate (adult) 70 bpm (60 - 90) Respiratory Rate 18 bpm (12 - 24) O2 Sat by Pulse Oximetry 100 % (88 - 100) Blood Pressure 126/76 mm Hg Pain Pain Intensity 3 Height (Feet) 5 feet Height (Inches) 4.00 inches Height (Calculated Centimeters) 162. 609805 cm Weight (Pounds) 174 pounds Weight (Calculated Grams) 51846.073 gm Weight (Calculated Kilograms) 78.925 073 kilograms Calculated BMI 29.86 Vital Response Date/Time Temperature (Fahrenheit) 97.2 degree s F (97.6 - 99.5) 10/19/2017 12:25pm Temperature (Calculated Celsius) 36. 36850 degrees C (36.4 - 37.5) 10/19/2017 11:50am Temperature Source Temporal 10/19/2017 12:25pm Pulse Rate (adult) 71 bpm (60 - 90) 10/19/2017 12:25pm Respiratory Rate 16 bpm (12 - 24) 10/19/2017 12:25pm O2 Sat by Pulse Oximetry 96 % (88 - 100) 10/19/2017 12:25pm Blood Pressure 135/86 mm Hg 10/19/2017 12:25pm Blood Pressure Mean 107 mm Hg (65 - 110) 10/19/2017 8:15am Pain Numeric Pain Scale 2 12:25pm Pain Intensity 5 2017 10:50am Height (Feet) 5 feet 8:15am Height (Inches) 4.00 inches 10/19/2017 8:15am Height (Calculated Centimeters) 162. 675328 cm 10/19/2017 8:15am Weight (Pounds) 183 pounds 10/19/2017 8:15am Weight (Ounces) 5.0 oz 0 10/19/2017 8:15am Weight (Calculated Grams) 36630.15 gm 10/19/2017 8:15am Weight (Calculated Kilograms) 83.149 152 kilograms 10/19/2017 8:15am Calculated BMI 31.5 09/26 8:15am Weight Measurement Method Standing Scale 10/12/2017 9:46am No vital sign information available. Interventions No Information Plan of Treatment The data below is from unstructured sources Discharge Date 10/19/17 12:25pm Instructions/Education Provided RICKI PRATHER INSTRUCTIONS POSTOP DR. MANZANARES-[facility] ARTHOSCOPY Prescriptions See Medication Section Prescriptions See Medication Section Prescriptions See Medication Section Goals No Information Social History No Information Functional Status The data below is from unstructured sourcesNo functional status results.No functional status information available.No functional status information available.No functional status information available.No functional status information available.No functional status information available.No functional status information available. Mental Status No Information Encounters Encounter Normalized Encounter Encounter Diagnosis Care Provi tanya Organization Date Type 10-19-2017 Admission to day no information REFUGIO MANZANARES Wo rk no organization name - surgery Phone: 10-19-2017 01-18-2018 Discharged Recurring no information REFUGIO May Work no organization name - 01-24-2018 12-21-2017 Discharged Recurring no information REFUGIO May Work no organization name - 12-26-2017 08-22-2019 Evaluation and no information REFUGIO MANZANARES MD [facility] management of (no phone) [facility] inpatient (no phone) NEGATED Patient encounter no information no name no or ganization name 01-18-2018 - 01-24-2018 01-16-2018 Patient encounter no information no name no or ganization name 01-12-2018 Patient encounter no information no name no or ganization name 01-09-2018 Patient encounter no information no name no or ganization name 01-05-2018 Patient encounter no information no name no or ganization name 01-02-2018 Patient encounter no information no name no or ganization name 12-29-2017 Patient encounter no information no name no or ganization name 12-27-2017 Patient encounter no information no name no or ganization name 12-26-2017 Patient encounter no information no name no or ganization name 12-26-2017 Patient encounter no information no name no or ganization name NEGATED Patient encounter no information no name no or ganization name 12-21-2017 - 12-25-2017 NEGATED Patient encounter no information no name no or ganization name 12-19-2017 NEGATED Patient encounter no information no name no or ganization name 10-19-2017 - 10-19-2017 10-12-2017 Patient encounter no information REFUGIO MANZANARES W ork no organization name - 10-12-2017 07-27-2017 Patient encounter no information no name no or ganization name 06-29-2017 Patient encounter no information no name no or ganization name 05-21-2016 Patient encounter no information no name no or ganization name 01-02-2016 Patient encounter no information no name no or ganization name 12-05-2015 Patient encounter no information no name no or ganization name 12-04-2015 Patient encounter no information no name no or ganization name 09-04-2014 Patient encounter no information no name no or ganization name - 09-04-2014 10-18-2013 Patient encounter no information no name no or ganization name 03-23-2013 Patient encounter no information no name no or ganization name 01-26-2013 Patient encounter no information no name no or ganization name 10-03-2012 Patient encounter no information no name no or ganization name - 10-03-2012 09-27-2012 Patient encounter no information no name no or ganization name 09-26-2012 Patient encounter no information no name no or ganization name 09-19-2012 Patient encounter no information no name no or ganization name 06-23-2012 Patient encounter no information no name no or ganization name - 07-12-2012 08-17-2019 Patient encounter no information REFUGIO [facility] - procedure (no phone) [facility] 08-17-2019 (no phone) 08-15-2019 Patient encounter no information REFUGIO [facility] procedure (no phone) [facility] (no phone) 04-17-2019 Patient encounter no information JUANJO MARCIAL MA [facility] procedure (no phone) [facility] (no phone) no information Encounter for other no name (no phone) preprocedural examination no information Pre-operative no name no organization name examination, unspecified Medical Equipment No Information Payers Normalized Payer Value Unknown [id number]) Clinical Note Note Type Note Facility Note NAME: YADIRA FRANCES ~MED REC #: [id number] ~ ~PHYSICIAN: PENDING REFUGIO MANZANARES MD ~Pre-Operative Progress Note ~H P Reviewed ~The H P was LOCATION reviewed, patient examined and no riley es noted. ~Date Seen by Provider: August [id number] ~Time Seen by Provider: 07:20 ~Date H P Reviewed : August 22, 2019 ~Time H P (28358) Reviewed: 07:11 ~Pre-Operative Diagnosi s: left knee primary osteoarthritis ~ ~ ~ ~REFUGIO MANZANARES MD August 22, 2019 07:28 ~ ~ ~<Created by REFUGIO MANZANARES MD> ~<Electronically signed by REFUGIO BARRAGAN MD> 08/22/19 0728 ~ ~ null Note Type Note Facility Note NAME: YADIRA FRANCES ~MED REC #: [id number] ~ ~PHYSICIAN: PENDING REFUGIO MANZANARES MD ~Standard Progress Note ~Progress Notes/Assess Plan ~Date LOCATION Seen by a Provider: August 22, 2019 ~Time Seen by a Prov ider: 13:52 [facility] ~Progress/Assessment Plan ~post op check ~no complain ts ~radiographs--HW well (70370) positioned without fracture ~LLE--2 plu s DP pulse with brisk cap refill. intact sensation throughout. Intact DF andPF o f toes and~ankle ~s/p LTKA ~mobilize as able ~ ~ ~ ~REFUGIO MANZANARES MD August 22, 2019 13:54 ~ ~ ~<Created by REFUGIO MANZANARES MD> ~<Electronically signed by aDny MANZANARES MD> 08/22/19 1354 ~ ~ Clinical Note Note Type Note Facility Note NAME: YADIRA FRANCES [facility] REC #: [id number] ~ ~PHYSICIAN: PENDING REFUGIO MANZANARES MD ~Standard Progress Note ~Progress Notes/Assess Plan ~Date LOCATION Seen by a Provider: August 23, 2019 ~Time Seen by a Prov ider: 07:55 [facility] ~Progress/Assessment Plan ~post op check ~no complain ts ~radiographs--HW well (26863) positioned without fracture ~LLE--2 plu s DP pulse with brisk cap refill. intact sensation throughout. Intact DF andPF o f toes and~ankle ~s/p LTKA ~mobilize as able ~Final Diagnosis ~Patient felt a " pop" while lowering onto toilet last PM . Did not fall. reports difficulty with D F ~of foot now ~ ~Vital Signs ~ ~ ~ Date Time Temp Pulse Resp B/P (MAP) Pulse Ox O2 Delivery O2 Flow Rate FiO2 ~ ~08/23/19 04:00 36.6 76 16 145/71 (95) 98 Room r ~ ~08/22/19 23:35 36.6 89 20 150/83 (105) 98 Room Air ~ ~08/22/19 21:00 Room Air ~ ~08/22/19 19:08 36.9 95 17 134/64 (87) 98 Room Air ~ ~08/22/19 15:25 36.3 88 15 138/86 (103) 97 Room Air ~ ~08/22/19 14:40 Nasal Cannula 2.00 ~ ~08/22/19 13: 51 100 Nasal Cannula 2.00 ~ ~08/22/19 11:35 36.4 87 20 178/101 (126) 100 Room Air ~ ~08/22/19 10:30 36.4 18 168/96 (120) 100 Nasal Cannula 2 ~ ~08/22/19 10 :30 Nasal Cannula 2 ~ ~08/22/19 10:30 36.3 74 20 183/97 (125) 100 Room Air ~ ~08/21 10:23 18 170/99 (122) 100 Nasal Cannula 2 ~ ~08/22/19 10:22 Nasal Cannul a 2 ~ ~08/22/19 10:20 18 179/102 (127) 99 Nasal Cannula 2 ~ ~08/22/19 10:17 18 181 /104 (129) 100 Nasal Cannula 2 ~ ~08/22/19 10:10 18 178/98 (124) 100 Nasal Cannula 2 ~ ~08/22/19 10:10 Nasal Cannula 2 ~ ~08/22/19 10:00 18 169/90 (116) 98 Nasal Cannula 2 ~ ~08/22/19 09:55 Room Air ~ ~08/22/19 09:50 18 161/84 (109) 96 OxyMa sk 3 ~ ~08/22/19 09:47 OxyMask 3 ~ ~08/22/19 09:40 18 151/78 (102) 100 OxyM ask 6 ~ ~08/22/19 09:40 OxyMask 6 ~ ~08/22/19 09:30 18 126/64 (84) 100 OxyMa sk 6 ~ ~08/22/19 09:25 OxyMask 6 ~ ~08/22/19 09:20 18 138/86 (103) 100 OxyM ask 6 ~ ~08/22/19 09:13 36.2 16 132/90 (104) 97 OxyMask 6 ~ ~08/22/19 09:13 Oxy Mask 6 ~ ~ ~ ~ ~I O ~ ~ 08/23/19 ~ ~ 07:00 ~ ~Intake Total 3398 ml ~ ~Output Total 800 ml ~ ~Balance 2598 ml ~ ~ ~Laboratory Tests ~ ~ ~Test ~ 08/23/19 ~ 05:05 Range/Units ~ ~ ~Hemoglobin 10.9 L 11.5-16.0 G/DL ~ ~Hematocrit 34 L 35-52 % ~ ~LLE--dressing intact. reports decreased sensation diffusely below the knee. intact PF of ankle. ~Intact DF of toes, and with distraction she DF ankle but unable to volitionally. grossly stable to ~stress in all planes. unable to SLR, but has minimal quad contraction ~ ~Radiographs without acute changes ~s /p LTKA ~continue PT. ~ ~ ~ ~REFUGIO MANZANARES MD August 23, 2019 07:59 ~ ~ ~<Created by REFUGIO MANZANARES MD> ~<Electronically signed by REFUGIO BARRAGAN MD> 08/23/19 0759 ~ ~ Clinical Note Note Type Note Facility Note NAME: YADIRA FRANCES ~MED REC #: [id number] ~ ~PHYSICIAN: PENDING REFUGIO MANZANARES MD ~Standard Progress Note ~Progress Notes/Assess Plan ~Date LOCATION Seen by a Provider: August 23, 2019 ~Time Seen by a Prov ider: 15:12 [facility] ~Progress/Assessment Plan ~post op check ~no complain ts ~radiographs--HW well (74390) positioned without fracture ~LLE--2 plu s DP pulse with brisk cap refill. intact sensation throughout. Intact DF andPF o f toes and~ankle ~s/p LTKA ~mobilize as able ~Final Diagnosis ~feeling better ~ LLE-poor quad contraction. Neg SLR ~s/p LTKA ~will assess extensor mechanism in AM. Not unusual to have poor quad control at this point. If ~suspicious f or quad disruption on inspection tomorrow will return to OR. ~NPO after MN ~ ~ ~ ~REFUGIO MANZANARES MD August 23, 2019 15:14 ~ ~ ~<Created by REFUGIO MANZANARES MD> ~<E lectronically signed by REFUGIO MANZANARES MD> 08/23/19 1514 ~ ~ Clinical Note Note Type Note Facility Note NAME: YADIRA FRANCES ~MED REC #: [id number] ~ ~PHYSICIAN: PENDING REFUGIO MANZANARES MD ~Standard Progress Note ~Progress Notes/Assess Plan ~Date LOCATION Seen by a Provider: August 24, 2019 ~Time Seen by a Prov ider: 06:56 [facility] ~Progress/Assessment Plan ~post op check ~no complain ts ~radiographs--HW well (81482) positioned without fracture ~LLE--2 plu s DP pulse with brisk cap refill. intact sensation throughout. Intact DF andPF o f toes and~ankle ~s/p LTKA ~mobilize as able ~Final Diagnosis ~no complaints ~ ~Vital Signs ~ ~ ~ Date Time Temp Pulse Resp B/P (MAP) Pulse Ox O2 Delivery O2 Flow Rate FiO2 ~ ~08/24/19 03:58 36.4 83 18 118/71 (87) 98 Room Air ~ ~08/23/19 2 3:40 36.4 80 18 111/68 (82) 99 Room Air ~ ~08/23/19 21:00 Room Air ~ ~08/23/19 19:4 6 36.6 85 20 123/71 (88) 99 Room Air ~ ~08/23/19 16:10 36.6 85 18 122/66 (84) 9 8 Room Air ~ ~08/23/19 12:00 36.9 70 20 135/77 (96) 95 Room Air ~ ~08/23/19 09:0 0 Room Air ~ ~08/23/19 08:00 36.9 79 20 135/81 (99) 97 Room Air ~ ~ ~ ~ ~I O ~ ~ 08/24/19 ~ ~ 07:00 ~ ~Intake Total 2420 ml ~ ~Output Total 900 ml ~ ~Balance 15 20 ml ~ ~ ~Laboratory Tests ~ ~ ~Test ~ 08/24/19 ~05:33 Range/Units ~ ~ ~Hemoglo bin 9.5 L 11.5-16.0 G/DL ~ ~Hematocrit 30 L 35-52 % ~ ~LLE--incision clean and dr griggs unable to maintain knee extension, but very poor quad activation ~edema superi riley, so difficult to palpate for defect ~s/p LTKA with ? quad tendon disruption ~plan for return to OR today for explaration of extensor mechanism and r epair ~ ~ ~ ~REFUGIO MANZANARES MD August 24, 2019 06:58 ~ ~ ~<Created by REFUGIO MIKE MD> ~<Electronically signed by REFUGIO MANZANARES MD> 08/24/19 0658 ~ ~ Clinical Note Note Type Note Facility Note NAME: YADIRA FRANCES ~MED REC #: [id number] ~ ~PHYSICIAN: PENDING REFUGIO MANZANARES MD ~Pre-Operative Progress Note ~H P Reviewed ~The H P was LOCATION reviewed, patient examined and no riley es noted. ~Date Seen by Provider: August [id number] ~Time Seen by Provider: 11:54 ~Date H P Reviewed : August 22, 2019 ~Time H P (02189) Reviewed: 07:11 ~Pre-Operative Diagnosi s: left quadriceps tendon disruption ~ ~ ~ ~REFUGIO MANZANARES MD August 24, 2019 11: 54 ~ ~ ~<Created by REFUGIO MANZANARES MD> ~<Electronically signed by REFUGIO BARRAGAN MD> 08/24/19 1154 ~ ~ Clinical Note Note Type Note Facility Note NAME: ASHAYADIRA CHANCE Anabel ~MED REC #: [id number] ~ ~PHYSICIAN: PENDING WANG MARTIN PT ~Therapy Progress Note ~Pt. just returned to room from LOCATION surgery this PM due to L quadriceps ten don rupture. Pt. states she ~is having a KHS lot of pain in the L knee, declined sta nding at [facility] this PM. We will reevaluate ([id number]) patient~08/24. ~ ~1500 ~ ~ ~ ~Pham MARTIN PT August 24, 2019 15:04 ~ ~ ~<Created by WANG MARTIN PT> ~<Peggy ctronically signed by WANG MARTIN PT> 08/24/19 1504 ~ ~ Clinical Note Note Type Note Facility Note NAME: [facility] MED REC #: [id number] ~ ~PHYSICIAN: PENDING REFUGIO MANZANARES MD ~Standard Progress Note ~Progress Notes/Assess Plan ~Date LOCATION Seen by a Provider: August 25, 2019 ~Time Seen by a Prov ider: 08:00 [facility] ~Progress/Assessment Plan ~post op check ~no complain ts ~radiographs--HW well ([id number]) positioned without fracture ~LLE--2 plu s DP pulse with brisk cap refill. intact sensation throughout. Intact DF andPF o f toes and~ankle ~s/p LTKA ~mobilize as able ~Final Diagnosis ~no complaints ~ ~Vital Signs ~ ~ ~ Date Time Temp Pulse Resp B/P (MAP) Pulse Ox O2 Delivery O2 Flow Rate FiO2 ~ ~08/25/19 07:47 36.6 104 20 126/70 (88) 93 Room Air ~ ~08/25/19 0 3:58 36.7 97 20 112/56 (74) 97 Room Air ~ ~08/25/19 00:00 37.3 90 20 110/50 (70) 9 7 Room Air ~ ~08/24/19 20:00 97 Room Air ~ ~08/24/19 19:32 36.9 109 20 125/71 (89) 98 Room Air ~ ~08/24/19 16:18 36.8 88 16 147/80 (102) 100 Room Air ~ ~08/24/19 14 :50 Nasal Cannula 2 ~ ~08/24/19 14:50 36.4 18 132/88 (103) 99 Nasal Cannula 2 ~ ~ 14:40 Nasal Cannula 2 ~ ~08/24/19 14:40 18 128/91 (103) 100 Nasal Cannula 2 ~ ~08/24/19 14:30 18 143/84 (103) 99 Nasal Cannula 2 ~ ~08/24/19 14:29 Nasal Cannula 2 ~ ~08/24/19 14:20 18 134/75 (94) 100 Nasal Cannula 2 ~ ~08/24/19 14:18 Na rao Cannula 2 ~ ~08/24/19 14:10 Nasal Cannula 2 ~ ~08/24/19 14:10 18 138/79 (9 8) 99 Nasal Cannula 2 ~ ~08/24/19 14:00 18 143/88 (106) 97 OxyMask 6 ~ ~08/24/19 13 :55 OxyMask 6 ~ ~08/24/19 13:50 20 144/79 (100) 100 OxyMask 6 ~ ~08/24/19 13:42 36 .2 20 146/90 (108) 98 OxyMask 6 ~ ~08/24/19 13:42 OxyMask 6 ~ ~08/24/19 12: 10 36.7 79 18 106/66 (79) 97 Room Air ~ ~08/24/19 09:00 98 Room Air ~ ~ ~ ~ ~I O ~ ~ 08/25/19 ~ ~ 07:00 ~ ~Intake Total 3867.5 ml ~ ~Output Total 600 ml ~ ~Bal ance 3267.5 ml ~ ~ ~Laboratory Tests ~ ~ ~Test ~ 08/25/19 ~06:11 Range/Units ~ ~ ~Hemoglobin 8.4 L 11.5-16.0 G/DL ~ ~Hematocrit 27 L 35-52 % ~ ~LLE--dressi ng intact. Intact DF and PF of toes and ankle. brisk cap refill. 2 plus dp puls e ~s/p L TKA with quad refill ~PT. ~IRF eval ~ ~ ~ ~REFUGIO MANZANARES MD August 25, 2019 08:03 ~ ~ ~<Created by REFUGIO MANZANARES MD> ~<Electronically signed by Dany MANZANARES MD> 08/25/19 0803 ~ ~ Advance Directives Directive Response Recor ded Date Advance Directives N 12/08 7:10am Health Care Power of Home Agent N 10/03/12 7:10am Organ Donor Y 10/03/12 7 :10am Directive Response Recor ded Date/Time Advance Directives No 9:39am Health Care Power of Home Agent No 09/04/14 9:39am Organ Donor Yes 09/04/14 9:39am Resuscitation Status Full Code 09/04/14 9:39am Directive Response Recor ded Date/Time Advance Directives No 8:15am Health Care Power of Home Agent No 10/19/17 8:15am Organ Donor Yes 10/19/17 8:15am Resuscitation Status Full Code 10/19/17 8:15am Directive Response Recor ded Date/Time Advance Directives No 8:15am Health Care Power of Home Agent No 10/19/17 8:15am Organ Donor Yes 10/19/17 8:15am Discharge Instructions No hospital discharge instructions.No hospital discharge instruction information available.No hospital discharge instruction information available.No hospital discharge instruction information available. Additional Source Comments This clinical document has been generated using [employer] software that has been certified by the Office of the National Coordinator for Health Information Technology (ONC 15.99.04.3023.Diam.31.00.0.618208) and the National Committee for Gang Hem[employer]ching Machine Operator (NCQA, as an eMeasure certified technology). FOR RECORDS PERTAINING TO PATIENTS WHO ARE OR HAVE BEEN ENROLLED IN A CHEMICAL D EPENDENCY/SUBSTANCE ABUSE PROGRAM, SOME INFORMATION MAY BE OMITTED. This clinica l summary was aggregated from multiple sources. Caution should be exercised in using it in the provision of clinical care. This summary normalizes information from multiple sources, and as a consequence, information in this document may ma terially change the coding, format and clinical context of patient data. In amado tion, data may be omitted in some cases. CLINICAL DECISIONS SHOULD BE BASED ON T HE PRIMARY CLINICAL RECORDS. [employer] provides no warranty or guara ntee of the accuracy or completeness of information in this document.The followi ng information is based on time limited clinical information
--- OUTSIDE RECORDS SUMMARY | 2019-08-28 12:27 | XMS REPORT | Clinical Summary ---
Author Author [facility] Organization [facility] Address Unknown Phone Unavailable Care Team Providers Care Teaching Supervisor Name Role Phone Temo Carcamo PCP Unavailable Source Comments Some departments are not documenting in the electronic medical record. If you d o not see the information that you expected, contact Release of Information in merged with [facility] [employer] Information Management department at [phone] for further assistan ce in locating additional records.[facility] Allergies Comments Active Allergy Reactions Severity Noted Date Cephalexin NAUSEA AND 07/11/2013 VOMITING Medications End Date Status Medication Sig Dispensed Refills Start Date Active metoprolol XL (TOPROL XL) Take 25 mg by 0 25 mg tablet mouth twice daily. Active atorvastatin (LIPITOR) 10 Take 10 mg by 0 mg tablet mouth daily. Active aspirin 81 mg chewable Take 81 mg by 0 tablet mouth daily. Active CALCIUM CARBONATE/VITAMIN Take by 0 D3 (CALCIUM + D PO) mouth daily. Active MULTIVITAMINS WITH Take by 0 FLUORIDE (MULTI-VITAMIN mouth daily. PO) Active coenzyme Q10(+) 100 mg Take 100 mg 0 cap by mouth daily. Active famotidine (PEPCID) 20 mg Take 20 mg by 0 tablet mouth daily. Active GLUC/GABBY-MSM#2/C/D3/CAROLINE Take by 0 /BORN mouth daily. (ECWCSHTN-DEPENO-JCA WITH VIT D PO) Active Problems Problem Noted Date Dyspnea 07/11/2013 Screening for cardiovascular condition 04/24/2013 Overview: 09/01/09 Exercise stress [facility]- No evidence of significant myocardial ischemia or infarction, Norm al regional wall motion, normal global Lv systolic function EF 73%, Nor mal LV size 09/26/12 Holter: Frequent isolated PVCs. One 4 -beat run of nonsustained wide complex tachycardia. Borderline ST abno rmality. 09/27/12 Echo: Normal global LV systolic function. EF 60%. Pulmonary systolic pressure is estimated to be approximate ly 30-35 mmHg. 10/03/12 - ([facility] [place], [place]) N o angiographically significant coronary artery diease on cardiac cath per outside records. LVEF 60%. Mild elevation of LV end-diastolic pressure. Tobacco use 04/24/2013 Palpitations 04/24/2013 Hyperlipidemia Family History Medical History Relation Name Comments Coronary Artery Disease Brother Heart Attack Brother Coronary Artery Disease Brother Heart Attack Brother Coronary Artery Disease Father Heart Attack Father Heart Failure Mother Relation Name Status Comments Brother Brother Father Mother Social History Date Tobacco Use Types Packs/Day Years Used Current Every Day Smoker Cigarettes 0.5 Smokeless Tobacco: Never Used Drinks/Week oz/Week Comments Alcohol Use No Sex Assigned at Date Recorded Not on file Industry Job Start Date Occupation Not on file Not on file Not on file Travel End Travel History Travel Start No recent travel history available. Last Filed Vital Signs Reading Time Taken Comments Vital Sign 132/80 06/06/2014 10:42 AM CDT Blood Pressure 73 06/06/2014 10:33 AM CDT Pulse - - Temperature - - Respiratory Rate - - Oxygen Saturation - - Inhaled Oxygen Concentration 77.4 kg (170 lb 11.2 oz) 06/06/2014 10:33 AM CDT Weight 162.6 cm (5' 4") 06/06/2014 10:33 AM CDT Height 29.3 06/06/2014 10:33 AM CDT Body Mass Index Plan of Treatment Health Maintenance Due Date Last Done Comments HIV SCREENING 01/24/1972 DTAP/TDAP VACCINES (1 - 1975 Tdap) HEPATITIS C SCREENING 1975 PHYSICAL (COMPREHENSIVE) 1975 EXAM CERVICAL CANCER SCREENING 1978 BREAST CANCER SCREENING 1997 COLORECTAL CANCER 2007 SCREENING SHINGLES RECOMBINANT 2007 VACCINE (1 of 2) INFLUENZA VACCINE 12/27/2019 Results Not on filefrom Last 3 Months Insurance Type Payer Benefit Subscriber ID Effective Phone Address Plan / Dates Group PPO COVENTRY COVENTRY xxxxxxxxxxx 2013-P PPO resent [phone] Advance Directives Patient Scrub Nurse Explanation Type Date Recorded Advance 02/28/2013 3:58 PM Directive/DPOA
--- OUTSIDE RECORDS SUMMARY | 2019-08-28 12:28 | XMS REPORT | Continuity of Care Document ---
Author Organization Unknown Address Unknown Phone Unavailable Allergies Active Description Code Type Severity Reaction Onset Reported/Identified Relationship to Patient Clinical Status Yes pravastatin [id number] Drug Aller gy Unknown NAUSEA 09/02/2014 Yes cephalexin [id number] Drug Allerg y Moderate VOMITING 08/22/2019 Yes pravastatin [id number] Drug Aller gy Mild NAUSEA 08/22/2019 Medications There is no data. Problems Date Dx Coded Attending Type Code Diagnosis Diagnosed By LEIGHTON KIRK, REFUGIO Montaño Ot S83.242D OT TEAR OF MEDIAL MENISCUS, CURRENT INJ LEIGHTON KIRK, REFUGIO Montaño Ot W19.XXXD UNSPECIFIED FALL, SUBSEQUENT ENCOUNTER 02/24/1445 LEIGHTON KIRK, REFUGIO Montaño Ot M17.12 UNILATERAL PRIMARY OSTEOARTHRITIS, LEFT 02/24/1445 LEIGHTON KIRK, REFUGIO Montaño Ot Z01.818 ENCOUNTER FOR OTHER PREPROCEDURAL EXAMIN 02/24/1445 REFUGIO MANZANARES MD Ot Z11.59 ENCOUNTER FOR SCREENING FOR OTHER VIRAL 02/24/2012 Ot 822.0 FRAC TURE PATELLA- CLOSED 02/24/2012 Ot 959.7 LOWE R LEG INJURY NOS 02/24/2012 Ot E000.8 OTH ER EXTERNAL CAUSE STATUS 02/24/2012 Ot E849.0 ACC IDENT IN HOME 02/24/2012 Ot E888.1 FAL L STRIKING OBJECT NEC 07/12/2012 Ot V54.16 AFT [facility] TRAUMATIC FX LOWER LEG 07/12/2012 Ot V57.1 PHYS ICAL THERAPY NEC 10/03/2012 AGGIE KIRK FACC, JUANJO FOOTE CCDS Ot 272.4 HYPERLIPIDEMIA NEC/NOS 10/03/2012 AGGIE KIRK FACC, JUANJO JOHNSONP CCDS Ot 427.69 PREMATURE BEATS NEC 10/03/2012 AGGIE KIRK FACC, JUANJO FOTOE CCDS Ot 785.0 TACHYCARDIA NOS 10/03/2012 AGGIE KIRK FACC, JUANJO FOOTE CCDS Ot 785.1 PALPITATIONS 10/03/2012 AGGIE KIRK [facility], [facility] Ot V58.66 LONG-TERM (CURRENT) USE OF ASPIRIN 10/03/2012 [facility] Ot V58.69 OTH MED,LT,CURRENT USE 09/04/2014 REFUGIO MANZANARES MD Ot 845.09 SPRAIN OF ANKLE NEC 09/04/2014 REFUGIO MANZANARES MD Ot E000.8 OTHER EXTERNAL CAUSE STATUS 09/04/2014 REFUGIO MANZANARES MD Ot E928.9 ACCIDENT NOS 12/03/2015 Ot 427.69 PRE MATURE BEATS NEC 12/03/[address] PAIN NOS 12/03/2015 Ot 272.4 HYPE RLIPIDEMIA NEC/NOS 12/03/2015 Ot V58.69 OTH MED,LT,CURRENT USE 12/03/2015 AGGIE KIRK [facility], JUANJO [facility] CCDS Ot 272.4 HYPERLIPIDEMIA NEC/NOS 12/03/2015 BAIMA, ANITA L SUPERVISOR FIREARMS Ot 272.4 HYPERLIPIDEMIA NEC/NOS 12/03/2015 BAIMA, ANITA L SUPERVISOR FIREARMS Ot V58.69 OTH MED,LT,CURRENT USE 12/03/2015 BAIMA, ANITA L SUPERVISOR FIREARMS Ot 427.69 PREMATURE BEATS NEC 12/03/2015 BAIMA, ANITA L SUPERVISOR FIREARMS Ot 785.1 PALPITATIONS 12/03/2015 BAIMA, ANITA L SUPERVISOR FIREARMS Ot V58.66 LONG-TERM (CURRENT) USE OF ASPIRIN 12/03/2015 BAIMA, ANITA L SUPERVISOR FIREARMS Ot V58.69 OTH MED,LT,CURRENT USE 12/03/2015 BAIMA, ANITA L SUPERVISOR FIREARMS Ot 427.69 PREMATURE BEATS NEC 12/03/2015 BAIMA, ANITA L SUPERVISOR FIREARMS Ot 785.1 PALPITATIONS 12/03/2015 ISABEL KIRBY DO Ot V76.12 OTH SCREEN MAMMO-MALIGN NEOPLASM OF GREGORY 12/03/2015 ISABEL KIRBY DO Ot 733.00 OSTEOPOROSIS NOS 12/03/2015 REFUGIO MANZANARES MD Ot 845.09 SPRAIN OF ANKLE NEC 12/03/2015 REFUGIO MANZANARES MD Ot E000.8 OTHER EXTERNAL CAUSE STATUS 12/03/2015 REFUGIO MANZANARES MD Ot E928.9 ACCIDENT NOS 12/03/2015 REFUGIO MANZANARES MD Ot V72.84 EXAM PRE-OPERATIVE NOS 12/03/2015 REFUGIO MANZANARES MD Ot V74.8 SCREEN-BACTERIAL DIS NEC 12/04/2015 Ot 427.69 PRE MATURE BEATS NEC 12/04/[address] PAIN NOS 12/04/2015 Ot 272.4 HYPE RLIPIDEMIA NEC/NOS 12/04/2015 Ot V58.69 OTH MED,LT,CURRENT USE 12/04/2015 AGGIE KIRK FAC, ALI FACP CCDS Ot 272.4 HYPERLIPIDEMIA NEC/NOS 12/04/2015 BAIMA, ANITA L SUPERVISOR FIREARMS Ot 272.4 HYPERLIPIDEMIA NEC/NOS 12/04/2015 BAIMA, ANITA L SUPERVISOR FIREARMS Ot V58.69 OTH MED,LT,CURRENT USE 12/04/2015 BAIMA, ANITA L SUPERVISOR FIREARMS Ot 427.69 PREMATURE BEATS NEC 12/04/2015 BAIMA ANITA L SUPERVISOR FIREARMS Ot 785.1 PALPITATIONS 12/04/2015 BAIMA ANITA L SUPERVISOR FIREARMS Ot V58.66 LONG-TERM (CURRENT) USE OF ASPIRIN 12/04/2015 BAIMA, ANITA L SUPERVISOR FIREARMS Ot V58.69 OTH MED,LT,CURRENT USE 12/04/2015 BAIMA, ANITA L SUPERVISOR FIREARMS Ot 427.69 PREMATURE BEATS NEC 12/04/2015 BAIMA ANITA L SUPERVISOR FIREARMS Ot 785.1 PALPITATIONS 12/04/2015 ISABEL KIRBY DO Ot V76.12 OTH SCREEN MAMMO-MALIGN NEOPLASM OF GREGORY 12/04/2015 ISABEL KIRBY DO Ot 733.00 OSTEOPOROSIS NOS 12/04/2015 REFUGIO MANZANARES MD Ot 845.09 SPRAIN OF ANKLE NEC 12/04/2015 REFUGIO MANZANARES MD Ot E000.8 OTHER EXTERNAL CAUSE STATUS 12/04/2015 REFUGIO MANZANARES MD Ot E928.9 ACCIDENT NOS 12/04/2015 REFUGIO MANZANARES MD Ot V72.84 EXAM PRE-OPERATIVE NOS 12/04/2015 REFUGIO MANZANARES MD Ot V74.8 SCREEN-BACTERIAL DIS NEC 12/12/2015 AGGIE KIRK FACC, ALI FACP CCDS Ot I49.3 VENTRICULAR PREMATURE DEPOLARIZATION 12/12/2015 AGGIE KIRK FAC, ALI FACP CCDS Ot R06.02 SHORTNESS OF BREATH 12/12/2015 AGGIE KIRK FACC, JUANJO FOOTE CCDS Ot R07.89 OTHER CHEST PAIN 12/12/2015 JUANJO MARCIAL MD, FACCP CCDS Ot Z72.0 TOBACCO USE 01/02/2016 Ot 427.69 PRE MATURE BEATS NEC 01/02/[address] PAIN NOS 01/02/2016 Ot 272.4 HYPE RLIPIDEMIA NEC/NOS 01/02/2016 Ot V58.69 OTH MED,LT,CURRENT USE 01/02/2016 JUANJO MARCIAL MD, FACC, FACP CCDS Ot 272.4 HYPERLIPIDEMIA NEC/NOS 01/02/2016 BAIMA, ANITA L SUPERVISOR FIREARMS Ot 272.4 HYPERLIPIDEMIA NEC/NOS 01/02/2016 BAIMA, ANITA L SUPERVISOR FIREARMS Ot V58.69 OTH MED,LT,CURRENT USE 01/02/2016 BAIMA, ANITA L SUPERVISOR FIREARMS Ot 427.69 PREMATURE BEATS NEC 01/02/2016 BAIMA, ANITA L SUPERVISOR FIREARMS Ot 785.1 PALPITATIONS 01/02/2016 BAIMA, ANITA L SUPERVISOR FIREARMS Ot V58.66 LONG-TERM (CURRENT) USE OF ASPIRIN 01/02/2016 BAIMA, ANITA L SUPERVISOR FIREARMS Ot V58.69 OTH MED,LT,CURRENT USE 01/02/2016 BAIMA, ANITA L SUPERVISOR FIREARMS Ot 427.69 PREMATURE BEATS NEC 01/02/2016 BAIMA, ANITA L SUPERVISOR FIREARMS Ot 785.1 PALPITATIONS 01/02/2016 ISABEL KIRBY DO Ot V76.12 OTH SCREEN MAMMO-MALIGN NEOPLASM OF GREGORY 01/02/2016 ISABEL KIRBY DO Ot 733.00 OSTEOPOROSIS NOS 01/02/2016 REFUGIO MANZANARES MD Ot 845.09 SPRAIN OF ANKLE NEC 01/02/2016 REFUGIO MANZANARES MD Ot E000.8 OTHER EXTERNAL CAUSE STATUS 01/02/2016 REFUGIO MANZANARES MD Ot E928.9 ACCIDENT NOS 01/02/2016 REFUGIO MANZANARES MD Ot V72.84 EXAM PRE-OPERATIVE NOS 01/02/2016 REFUGIO MANZANARES MD Ot V74.8 SCREEN-BACTERIAL DIS NEC 01/02/2016 JUANJO MARCIAL MD, FACC, FACP CCDS Ot I49.3 VENTRICULAR PREMATURE DEPOLARIZATION 01/02/2016 AGGIE MD FACC, ALI FACP CCDS Ot R06.02 SHORTNESS OF BREATH 01/02/2016 AGGIE KIRK FACC, ALI FACP CCDS Ot R07.89 OTHER CHEST PAIN 01/02/2016 AGGIE KIRK FACC, ALI FACP CCDS Ot Z72.0 TOBACCO USE 01/02/2016 AGGIE KIRK FACC, ALI FACP CCDS Ot I49.3 VENTRICULAR PREMATURE DEPOLARIZATION 01/02/2016 AGGIE KIRK FACC, ALI FACP CCDS Ot R06.02 SHORTNESS OF BREATH 01/02/2016 AGGIE KIRK FACC, ALI FACP CCDS Ot R07.89 OTHER CHEST PAIN 01/02/2016 AGGIE KIRK FACC, ALI FACP CCDS Ot Z72.0 TOBACCO USE 01/05/2016 AGGIE KIRK FACC, ALI FACP CCDS Ot E78.4 OTHER HYPERLIPIDEMIA 01/05/2016 AGGIE KIRK FACC, ALI FACP CCDS Ot I49.3 VENTRICULAR PREMATURE DEPOLARIZATION 01/05/2016 AGGIE KIRK FAC, ALI FACP CCDS Ot R00.2 PALPITATIONS 01/05/2016 AGGIE KIRK [facility], ALI FACP CCDS Ot Z72.0 TOBACCO USE 01/09/2016 AGGIE KIRK FAC, ALI FACP CCDS Ot I49.3 VENTRICULAR PREMATURE DEPOLARIZATION 01/09/2016 AGGIE KIRK FAC, ALI FACP CCDS Ot R06.02 SHORTNESS OF BREATH 01/09/2016 AGGIE KIRK FAC, ALI FACP CCDS Ot R07.89 OTHER CHEST PAIN 01/09/2016 AGGIE KIRK FAC, ALI FACP CCDS Ot Z72.0 TOBACCO USE 05/27/2016 TAMIR KIRK, Dany LEPE Ot I47 .2 VENTRICULAR TACHYCARDIA 05/27/2016 Dany GARNETT MD Ot I49 .3 VENTRICULAR PREMATURE DEPOLARIZATION 05/27/2016 Dany GARNETT MD Ot Z72 .0 TOBACCO USE 09/22/2016 Dany GARNETT MD Ot I47 .2 VENTRICULAR TACHYCARDIA 09/22/2016 Dany GARNETT MD Ot I49 .3 VENTRICULAR PREMATURE DEPOLARIZATION 09/22/2016 Dany GARNETT MD Ot Z72 .0 TOBACCO USE 06/30/2017 ISABEL KIRBY DO Ot R05 COUGH 07/27/2017 AGGIE KIRK FACC, JUANJO FACP CCDS Ot 272.4 HYPERLIPIDEMIA NEC/NOS 07/27/2017 BAIMAANITA Faye SUPERVISOR FIREARMS Ot 272.4 HYPERLIPIDEMIA NEC/NOS 07/27/2017 BAIANITA LIAO SUPERVISOR FIREARMS Ot V58.69 OTH MED,LT,CURRENT USE 07/27/2017 BAIANITA LIAO SUPERVISOR FIREARMS Ot 427.69 PREMATURE BEATS NEC 07/27/2017 BAIMAANITA SUPERVISOR FIREARMS Ot 785.1 PALPITATIONS 07/27/2017 BAIMAANITA L SUPERVISOR FIREARMS Ot V58.66 LONG-TERM (CURRENT) USE OF ASPIRIN 07/27/2017 BAIMA, ANITA L SUPERVISOR FIREARMS Ot V58.69 OTH MED,LT,CURRENT USE 07/27/2017 BAIMAANITA SUPERVISOR FIREARMS Ot 427.69 PREMATURE BEATS NEC 07/27/2017 BAIANITA LIAO SUPERVISOR FIREARMS Ot 785.1 PALPITATIONS 07/27/2017 ISABEL KIRBY DO Ot V76.12 OTH SCREEN MAMMO-MALIGN NEOPLASM OF GREGORY 07/27/2017 ISABEL KIRBY DO Ot 733.00 OSTEOPOROSIS NOS 07/27/2017 LEIGHTON KIRK, REFUGIO Montaño Ot 845.09 SPRAIN OF ANKLE NEC 07/27/2017 REFUGIO MANZANARES MD Ot E000.8 OTHER EXTERNAL CAUSE STATUS 07/27/2017 REFUGIO MANZANARES MD Ot E928.9 ACCIDENT NOS 07/27/2017 REFUGOI MANZANARES MD Ot V72.84 EXAM PRE-OPERATIVE NOS 07/27/2017 LEIGHTON KIRK, REFUGIO Montaño Ot V74.8 SCREEN-BACTERIAL DIS NEC 07/27/2017 AGGIE KIRK FACC, JUANJO FACP CCDS Ot I49.3 VENTRICULAR PREMATURE DEPOLARIZATION 07/27/2017 AGGIE KIRK FACC, JUANJO FACP CCDS Ot R06.02 SHORTNESS OF BREATH 07/27/2017 AGGIE KIRK FACC, JUANJO FACP CCDS Ot R07.89 OTHER CHEST PAIN 07/27/2017 AGGIE KIRK FACC, ALI FACP CCDS Ot Z72.0 TOBACCO USE 07/27/2017 AGGIE KIRK FACC, ALI FACP CCDS Ot I49.3 VENTRICULAR PREMATURE DEPOLARIZATION 07/27/2017 AGGIE KIRK FACC, JUANJO FACP CCDS Ot R06.02 SHORTNESS OF BREATH 07/27/2017 AGGIE KIRK FACC, ALI FACP CCDS Ot R07.89 OTHER CHEST PAIN 07/27/2017 AGGIE KIRK FACC, ALI FACP CCDS Ot Z72.0 TOBACCO USE 07/27/2017 AGGIE KIRK FACC, ALI FACP CCDS Ot E78.4 OTHER HYPERLIPIDEMIA 07/27/2017 AGGIE KIRK FACC, ALI FACP CCDS Ot I49.3 VENTRICULAR PREMATURE DEPOLARIZATION 07/27/2017 AGGIE KIRK FACC, ALI FACP CCDS Ot R00.2 PALPITATIONS 07/27/2017 AGGIE KIRK FACC, ALI FACP CCDS Ot Z72.0 TOBACCO USE 07/27/2017 TAMIR KIRK, Dany LEPE Ot I47 .2 VENTRICULAR TACHYCARDIA 07/27/2017 TAMIR KIRK, Dany LEPE Ot I49 .3 VENTRICULAR PREMATURE DEPOLARIZATION 07/27/2017 TMAIR KIRK, Dany LEPE Ot Z72 .0 TOBACCO USE 07/27/2017 ISABEL KIRBY DO Ot R05 COUGH 07/27/2017 KIRBYISABEL VERGARA DO Ot R05 COUGH 07/28/2017 AGGIE KIRK FACC, ALI FACP CCDS Ot R06.02 SHORTNESS OF BREATH 08/25/2017 AGGIE KIRK FACC, ALI FACP CCDS Ot R06.02 SHORTNESS OF BREATH 10/12/2017 REFUGIO MANZANARES MD Ot S83.241A OTH TEAR OF MEDIAL MENISCUS, CURRENT INJ 10/12/2017 REFUGIO MANZANARES MD Ot X58.XXXA EXPOSURE TO OTHER SPECIFIED FACTORS, INI 10/12/2017 REFUGIO MANZANARES MD Ot Y92.015 PRIVATE GARAGE OF SINGLE-FAMILY (PRIVATE 10/12/2017 REFUGIO MANZANARES MD Ot Z01.818 ENCOUNTER FOR OTHER PREPROCEDURAL EXAMIN 10/12/2017 REFUGIO MANZANARES MD Ot Z11.2 ENCOUNTER FOR SCREENING FOR OTHER BACTER 10/13/2017 REFUGIO MANZANARES MD Ot S83.241A OTH TEAR OF MEDIAL MENISCUS, CURRENT INJ 10/13/2017 REFUGIO MANZANARES MD Ot X58.XXXA EXPOSURE TO OTHER SPECIFIED FACTORS, INI 10/13/2017 REFUGIO MANZANARES MD Ot Y92.015 PRIVATE GARAGE OF SINGLE-FAMILY (PRIVATE 10/13/2017 REFUGIO MANZANARES MD Ot Z01.818 ENCOUNTER FOR OTHER PREPROCEDURAL EXAMIN 10/13/2017 REFUGIO MANZANARES MD Ot Z11.2 ENCOUNTER FOR SCREENING FOR OTHER BACTER 10/18/2017 REFUGIO MANZANARES MD Ot S83.241A OT TEAR OF MEDIAL MENISCUS, CURRENT INJ 10/18/2017 REFUGIO MANZANARES MD Ot X58.XXXA EXPOSURE TO OTHER SPECIFIED FACTORS, INI 10/18/2017 REFUGIO MANZANARES MD Ot Y92.015 PRIVATE GARAGE OF SINGLE-FAMILY (PRIVATE 10/18/2017 REFUGIO MANZANARES MD Ot Z01.818 ENCOUNTER FOR OTHER PREPROCEDURAL EXAMIN 10/18/2017 REFUGIO MANZANARES MD Ot Z11.2 ENCOUNTER FOR SCREENING FOR OTHER BACTER 10/19/2017 AGGIE KIRK FACC, ALI FACP CCDS Ot 272.4 HYPERLIPIDEMIA NEC/NOS 10/19/2017 BAIMA, ANITA L SUPERVISOR FIREARMS Ot 272.4 HYPERLIPIDEMIA NEC/NOS 10/19/2017 BAIMA, ANITA L SUPERVISOR FIREARMS Ot V58.69 OTH MED,LT,CURRENT USE 10/19/2017 BAIMA, ANITA L SUPERVISOR FIREARMS Ot 427.69 PREMATURE BEATS NEC 10/19/2017 BAIMA, ANITA L SUPERVISOR FIREARMS Ot 785.1 PALPITATIONS 10/19/2017 BAIMA ANITA L SUPERVISOR FIREARMS Ot V58.66 LONG-TERM (CURRENT) USE OF ASPIRIN 10/19/2017 BAIMA, ANITA L SUPERVISOR FIREARMS Ot V58.69 OTH MED,LT,CURRENT USE 10/19/2017 BAIMA, ANITA L SUPERVISOR FIREARMS Ot 427.69 PREMATURE BEATS NEC 10/19/2017 BAIMA ANITA L SUPERVISOR FIREARMS Ot 785.1 PALPITATIONS 10/19/2017 ISABEL KIRBY DO Ot V76.12 OTH SCREEN MAMMO-MALIGN NEOPLASM OF GREGORY 10/19/2017 ISABEL KIRBY DO Ot 733.00 OSTEOPOROSIS NOS 10/19/2017 REFUGIO MANZANARES MD Ot 845.09 SPRAIN OF ANKLE NEC 10/19/2017 REFUGIO MANZANARES MD Ot E000.8 OTHER EXTERNAL CAUSE STATUS 10/19/2017 REFUGIO MANZANARES MD Ot E928.9 ACCIDENT NOS 10/19/2017 REFUGIO MANZANARES MD Ot V72.84 EXAM PRE-OPERATIVE NOS 10/19/2017 LEIGHTON KIRK, REFUGIO Montaño Ot V74.8 SCREEN-BACTERIAL DIS NEC 10/19/2017 AGGIE KIRK FAC, ALI FACP CCDS Ot I49.3 VENTRICULAR PREMATURE DEPOLARIZATION 10/19/2017 AGGIE KIRK FACC, ALI FACP CCDS Ot R06.02 SHORTNESS OF BREATH 10/19/2017 AGGIE KIRK FACC, ALI FACP CCDS Ot R07.89 OTHER CHEST PAIN 10/19/2017 AGGIE KIRK FACC, ALI FACP CCDS Ot Z72.0 TOBACCO USE 10/19/2017 AGGIE KIRK FACC, ALI FACP CCDS Ot I49.3 VENTRICULAR PREMATURE DEPOLARIZATION 10/19/2017 AGGIE KIRK FAC, ALI FACP CCDS Ot R06.02 SHORTNESS OF BREATH 10/19/2017 AGGIE KIRK FACC, ALI FACP CCDS Ot R07.89 OTHER CHEST PAIN 10/19/2017 AGGIE KIRK FACC, ALI FACP CCDS Ot Z72.0 TOBACCO USE 10/19/2017 AGGIE KIRK [facility], ALI FACP CCDS Ot E78.4 OTHER HYPERLIPIDEMIA 10/19/2017 AGGIE KIRK FAC, ALI FACP CCDS Ot I49.3 VENTRICULAR PREMATURE DEPOLARIZATION 10/19/2017 AGGIE KIRK [facility], ALI FACP CCDS Ot R00.2 PALPITATIONS 10/19/2017 AGGIE KIRK [facility], ALI FACP CCDS Ot Z72.0 TOBACCO USE 10/19/2017 TAMIR KIRK, Dany LEPE Ot I47 .2 VENTRICULAR TACHYCARDIA 10/19/2017 TAMIR KIRK, Dany LEPE Ot I49 .3 VENTRICULAR PREMATURE DEPOLARIZATION 10/19/2017 Dany GARNETT MD Ot Z72 .0 TOBACCO USE 10/19/2017 KOFI LEMOS, ISABEL Cantor Ot R05 COUGH 10/19/2017 AGGIE KIRK FAC, ALI FACP CCDS Ot R06.02 SHORTNESS OF BREATH 10/20/2017 REFUGIO MANZANARES MD Ot F17.210 NICOTINE DEPENDENCE, CIGARETTES, UNCOMPL 10/20/2017 REFUGIO MANZANARES MD Ot I1 0 ESSENTIAL (PRIMARY) HYPERTENSION 10/20/2017 REFUGIO MANZANARES MD Ot M22.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, LEFT KNEE 10/20/2017 REFUGIO MANZANARES MD Ot Q78.0 OSTEOGENESIS IMPERFECTA 10/20/2017 REFUGIO MANZANARES MD Ot S83.242A OTH TEAR OF MEDIAL MENISCUS, CURRENT INJ 10/20/2017 REFUGIO MANZANARES MD Ot S83.282A OTH TEAR OF LAT MENSC, CURRENT INJURY, L 10/20/2017 REFUGIO MANZANARES MD Ot W01.0XXA FALL SAME LEV FROM SLIP/TRIP W/O STRIKE 10/20/2017 REFUGIO MANZANARES MD Ot Y92.015 PRIVATE GARAGE OF SINGLE-FAMILY (PRIVATE 10/20/2017 REFUGIO MANZANARES MD, Ot Z79.82 FARM GENERAL MANAGER (CURRENT) USE OF ASPIRIN 12/25/2017 REFUGIO MANZANARES MD, Ot S83.242D OTH TEAR OF MEDIAL MENISCUS, CURRENT INJ 12/25/2017 REFUGIO MANZANARES MD Ot W19.XXXD UNSPECIFIED FALL, SUBSEQUENT ENCOUNTER 12/26/2017 REFUGIO MANZANARES MD Ot S83.242D OTH TEAR OF MEDIAL MENISCUS, CURRENT INJ 12/26/2017 REFUGIO MANZANARES MD Ot W19.XXXD UNSPECIFIED FALL, SUBSEQUENT ENCOUNTER 12/30/2017 REFUGIO MANZANARES MD Ot S83.242D OTH TEAR OF MEDIAL MENISCUS, CURRENT INJ 12/30/2017 REFUGIO MANZANARES MD Ot W19.XXXD UNSPECIFIED FALL, SUBSEQUENT ENCOUNTER 04/19/2019 AGGIE KIRK FACC, JUANJO FACP CCDS Ot E78.5 HYPERLIPIDEMIA, UNSPECIFIED 04/19/2019 AGGIE KIRK FACC, JUANOJ FACP CCDS Ot I07.1 RHEUMATIC TRICUSPID INSUFFICIENCY 04/19/2019 AGGIE KIRK FACC, JUANJO FACP CCDS Ot I49.3 VENTRICULAR PREMATURE DEPOLARIZATION 04/19/2019 AGGIE KIRK FACC, JUANJO FACP CCDS Ot I77.89 OTHER SPECIFIED DISORDERS OF ARTERIES AN 04/19/2019 AGGIE KIRK FACC, JUANJO FACP CCDS Ot R00.2 PALPITATIONS 04/19/2019 AGGIE KIRK FACC, JUANJO FACP CCDS Ot R06.02 SHORTNESS OF BREATH 04/19/2019 AGGIE KIRK FACC, JUANJO FACP CCDS Ot Z72.0 TOBACCO USE 04/19/2019 AGGIE KIRK FACC, JUANJO FACP CCDS Ot Z79.82 ALF (CURRENT) USE OF ASPIRIN 04/19/2019 [facility], ALI FACP CCDS Ot Z79.899 OTHER ALF (CURRENT) DRUG THERAPY 04/19/2019 AGGIE KIRK [facility], ALI FACP CCDS Ot E78.5 HYPERLIPIDEMIA, UNSPECIFIED 04/19/2019 AGGIE MD FACC, ALI FACP CCDS Ot I07.1 RHEUMATIC TRICUSPID INSUFFICIENCY 04/19/2019 AGGIE MD FACC, ALI FACP CCDS Ot I49.3 VENTRICULAR PREMATURE DEPOLARIZATION 04/19/2019 [facility]GGIE MD [facility], ALI FACP CCDS Ot I77.89 OTHER SPECIFIED DISORDERS OF ARTERIES AN 04/19/2019 AGGIE KIRK [facility], ALI FACP CCDS Ot R00.2 PALPITATIONS 04/19/2019 AGIGE KIRK [facility], ALI FACP CCDS Ot R06.02 SHORTNESS OF BREATH 04/19/2019 [facility] KIRK [facility], ALI FACP CCDS Ot Z72.0 TOBACCO USE 04/19/2019 AGGIE KIRK [facility], ALI FACP CCDS Ot Z79.82 ALF (CURRENT) USE OF ASPIRIN 04/19/2019 AGGIE KIRK [facility], ALI FACP CCDS Ot Z79.899 OTHER FARM GENERAL MANAGER (CURRENT) DRUG THERAPY 06/14/2019 AGGIE KIRK [facility], ALI FACP CCDS Ot E78.5 HYPERLIPIDEMIA, UNSPECIFIED 06/14/2019 AGGIE KIRK [facility], ALI FACP CCDS Ot I07.1 RHEUMATIC TRICUSPID INSUFFICIENCY 06/14/2019 AGGIE KIRK [facility], ALI FACP CCDS Ot I49.3 VENTRICULAR PREMATURE DEPOLARIZATION 06/14/2019 GAGIE KIRK [facility], ALI FACP CCDS Ot I77.89 OTHER SPECIFIED DISORDERS OF ARTERIES AN 06/14/2019 AGGIE KIRK [facility], ALI FACP CCDS Ot R00.2 PALPITATIONS 06/14/2019 AGGIE KIRK [facility], ALI FACP CCDS Ot R06.02 SHORTNESS OF BREATH 06/14/2019 AGGIE KIRK [facility], ALI FACP CCDS Ot Z72.0 TOBACCO USE 06/14/2019 [facility]IE KIRK [facility], ALI FACP CCDS Ot Z79.82 FARM GENERAL MANAGER (CURRENT) USE OF ASPIRIN 06/14/2019 A[facility]IE KIRK [facility], ALI FACP CCDS Ot Z79.899 OTHER FARM GENERAL MANAGER (CURRENT) DRUG THERAPY 08/23/2019 REFUGIO MANZANARES MD, Ot E66.9 OBESITY, UNSPECIFIED 08/23/2019 REFUGIO MANZANARES MD, Ot E78.00 PURE HYPERCHOLESTEROLEMIA, UNSPECIFIED 08/23/2019 REFUGIO MANZANARES MD, Ot I1 0 ESSENTIAL (PRIMARY) HYPERTENSION 08/23/2019 REFUGIO MANZANARES MD, Ot J30.2 OTHER SEASONAL ALLERGIC RHINITIS 08/23/2019 REFUGIO MANZANARES MD, Ot K21.9 GASTRO-ESOPHAGEAL REFLUX DISEASE WITHOUT 08/23/2019 REFUGIO MANZANARES MD, Ot M17.12 UNILATERAL PRIMARY OSTEOARTHRITIS, LEFT 08/23/2019 REFUGIO MANZANARES MD, Ot M54.9 DORSALGIA, UNSPECIFIED 08/23/2019 REFUGIO MANZANARES MD, Ot Q78.0 OSTEOGENESIS IMPERFECTA 08/23/2019 REFUGIO MANZANARES MD, Ot Z68.33 BODY MASS INDEX (BMI) 33.0-33.9, ADULT 08/23/2019 REFUGIO MANZANARES MD, Ot Z87.891 PERSONAL HISTORY OF NICOTINE DEPENDENCE Procedures Code Description Performed By Per marysol On [id number] RE PLACE OF L KNEE JT WITH SYNTH SUB, CHRISTOPHER 08/22/2019 Results Test Result Range Methicillin resistant Staphylococcus aur eus (MRSA) screening culture - 10/12/17 10:15 Methicillin resistant Staphylococcus aureus (MRSA) scr eening culture NEG NRG Methicillin resistant Staphylococcus aur eus (MRSA) screening culture - 08/15/19 11:25 Methicillin resistant Staphylococcus aureus (MRSA) scr eening culture NEG NRG Complete blood count (CBC) with automate d white blood cell (WBC) differential - 08/15/19 11:45 Blood leukocytes automated count (number/volume) 7.6 10*3/uL 4.3-11.0 Blood erythrocytes automated count (number/volume) 4.46 10*6/uL 4.35-5.85 Venous blood hemoglobin measurement (mass/volume) 13.0 g/dL 11.5-16.0 Blood hematocrit (volume fraction) 41 % 35-52 Automated erythrocyte mean corpuscular volume 91 [ foz_us] 80-99 Automated erythrocyte mean corpuscular h emoglobin (mass per erythrocyte) 29 pg 25-34 Automated erythrocyte mean corpuscular h emoglobin concentration measurement (mass/volume) 32 g/dL 32-36 Automated erythrocyte distribution width ratio 14. 9 % 10.0- 14.5 Automated blood platelet count (count/volume) 205 10*3/uL 130-400 Automated blood platelet mean volume measurement 9.8 [foz_us] 7.4-10.4 Automated blood neutrophils/100 leukocytes 58 % 42-75 Automated blood lymphocytes/100 leukocytes 31 % 12-44 Blood monocytes/100 leukocytes 9 % 0-12 Automated blood eosinophils/100 leukocytes 2 % 0-10 Automated blood basophils/100 leukocytes 0 % 0-10 Blood neutrophils automated count (number/volume) 4.4 10*3 1.8-7.8 Blood lymphocytes automated count (number/volume) 2.4 10*3 1.0-4.0 Blood monocytes automated count (number/volume) 0. 7 10*3 0.0-1.0 Automated eosinophil count 0.2 10*3/uL 0 .0-0.3 Automated blood basophil count (count/volume) 0.0 10*3/uL 0.0-0.1 PT panel in platelet poor plasma by coag ulation assay - 08/15/19 11:45 Prothrombin time (PT) in platelet poor plasma by coagu lation assay 12.6 s 12.2-14.7 INR in platelet poor plasma or blood by coagulation as say 0.9 0.8-1.4 Comprehensive metabolic panel - 08/15/19 11:45 Serum or plasma sodium measurement (moles/volume) 139 mmol/L 135-145 Serum or plasma potassium measurement (moles/volume) 4.2 mmol/L 3.6-5.0 Serum or plasma chloride measurement (moles/volume) 106 mmol/L 98-107 Carbon dioxide 24 mmol/L 21-32 Serum or plasma anion gap determination (moles/volume) 9 mmol/L 5-14 Serum or plasma urea nitrogen measurement (mass/volume ) 14 mg/dL 7-18 Serum or plasma creatinine measurement (mass/volume) 0.79 mg/dL 0.60-1.30 Serum or plasma urea nitrogen/creatinine mass ratio 18 NRG Serum or plasma creatinine measurement w ith calculation of estimated glomerular filtration rate > NRG Serum or plasma glucose measurement (mass/volume) 138 mg/dL 70-105 Serum or plasma calcium measurement (mass/volume) 9.1 mg/dL 8.5-10.1 Serum or plasma total bilirubin measurement (mass/volu me) 0.2 mg/dL 0.1-1.0 Serum or plasma alkaline phosphatase galo surement (enzymatic activity/volume) 98 U/L 40-136 Serum or plasma aspartate aminotransfera se measurement (enzymatic activity/volume) 21 U/L 5-34 Serum or plasma alanine aminotransferase measurement (enzymatic activity/volume) 23 U/L 0-55 Serum or plasma protein measurement (mass/volume) 6.9 g/dL 6.4-8.2 Serum or plasma albumin measurement (mass/volume) 4.1 g/dL 3.2-4.5 CALCIUM CORRECTED 9.0 mg/dL 8.5-10.1 Blood type T Indirect antibody screen pa pavel - 08/15/19 11:45 ABO+Rh group AN NRG Blood group antibody screen NEGATIVE NR G Erythrocyte sedimentation rate by shira gren method - 08/15/19 11:45 Erythrocyte sedimentation rate by westergren method 9 mm 0- 30 Complete urinalysis with reflex to cultu re - 08/15/19 15:20 Urine color determination YELLOW NRG Urine clarity determination SL CLOUDY N RG Urine pH measurement by test strip 7.0 5-9 Specific gravity of urine by test strip 1.015 1.016-1.022 Urine protein assay by test strip, semi-quantitative NEGATIVE NEGATIVE Urine glucose detection by automated test strip NE GATIVE NEGATIVE Erythrocytes detection in urine sediment by light micr oscopy NEGATIVE NEGATIVE Urine ketones detection by automated test strip NE GATIVE NEGATIVE Urine nitrite detection by test strip NEGATIVE NEGATIVE Urine total bilirubin detection by test strip NEGA TIVE NEGATIVE Urine urobilinogen measurement by automated test strip (mass/volume) 0.2 mg/dL < = 1.0 Urine leukocyte esterase detection by dipstick NEG ATIVE NEGATIVE Automated urine sediment erythrocyte cou nt by microscopy (number/high power field) RARE NRG Automated urine sediment leukocyte count by microscopy (number/high power field) RARE NRG Bacteria detection in urine sediment by light microsco py TRACE NRG Squamous epithelial cells detection in u rine sediment by light microscopy 2-5 NRG Crystals detection in urine sediment by light microsco py PRESENT NRG Casts detection in urine sediment by light microscopy NONE NRG Mucus detection in urine sediment by light microscopy NEGATIVE NRG Complete urinalysis with reflex to culture NO NRG Amorphous sediment detection in urine sediment by ligh t microscopy MOD NIKHIL PHOSPHATE NRG Renal epithelial cells detection in urin e sediment by light microscopy 0-2 NRG Coronavirus SARS-CoV-2 SO 2018 0 13:38 Coronavirus Ab [Units/volume] in Serum Negative Negative Blood type T Indirect antibody screen [facility] 08/22/19 06:32 WRISTBAND NUMBER [id number] NRG ABO+Rh group AN NRG Blood group antibody screen NEGATIVE NR G Whole blood hemoglobin and hematocrit [facility] 08/23/19 05:05 Venous blood hemoglobin measurement (mass/volume) 10.9 g/dL 11.5-16.0 Blood hematocrit (volume fraction) 34 % 35-52 Whole blood hemoglobin and hematocrit [facility] 08/24/19 05:33 Venous blood hemoglobin measurement (mass/volume) 9.5 g/dL 11.5-16.0 Blood hematocrit (volume fraction) 30 % 35-52 Whole blood hemoglobin and hematocrit [facility] 08/25/19 06:11 Venous blood hemoglobin measurement (mass/volume) 8.4 g/dL 11.5-16.0 Blood hematocrit (volume fraction) 27 % 35-52 Serum or plasma creatinine measurement ( mass/volume) - 08/28/19 08:00 Serum or plasma creatinine measurement (mass/volume) 0.63 mg/dL 0.60-1.30 Encounters ACCT No. Visit Date/Time Discharge Status Pt. Type Provider Facility Loc./Unit Complaint [id number] 08/17/2019 09:08:00 020 14:46:00 DIS Outpatient REFUGIO MANZANARES MD [facility] PREOP LEFT KNEE OSTEOARTHRIT IS [id number] 04/17/2019 11:40:00 020 23:59:59 CLS Outpatient AGGIE KIRK FACC, JUANJO FOOTE CC DS [facility] CARD CAD [id number] 01/18/2018 16:06:00 09:51:00 DIS Outpatient REFUGIO MANZANARES MD [facility] REHAB L KNEE MMT [id number] 12/21/2017 08:49:00 00:01:00 DIS Outpatient REFUGIO MANZANARES MD [facility] REHAB L KNEE MMT [id number] 12/14/2017 13:51:00 018 23:59:59 CLS Preadmit ISABEL KIRBY DO [facility] RAD M81.0 OSTEOPOROSIS [id number] 10/19/2017 08:08:00 018 12:25:00 DIS Outpatient REFUGIO MANZANARES MD [facility] SDC TORN LEFT MEDIAL MENIS CUS [id number] 10/12/2017 05:33:00 018 10:54:00 DIS Outpatient REFUGIO MANZANARES MD [facility] PREOP TORN LEFT MEDIAL MENIS CUS [id number] 07/27/2017 10:14:00 018 23:59:59 CLS Outpatient AGGIE KIRK FACC, ALI FACP CC DS [facility] RT R06.02 SOB [id number] 06/29/2017 15:55:00 018 23:59:59 CLS Outpatient ISABEL KIRBY DO [facility] RAD R05 [id number] 05/21/2016 09:20:00 017 23:59:59 CLS Outpatient Dany GARNETT MD [facility] CARD PVC,TOBACCO USER, VENTR ICULAR TACHYCARDIA [id number] 01/02/2016 13:55:00 016 23:59:59 CLS Outpatient AGGIE KIRK FACC, ALI FACP CC DS [facility] CARD PVC [id number] 12/05/2015 12:56:00 016 23:59:59 CLS Outpatient AGGIE KIRK FACC, ALI FACP CC DS [facility] CARD CHEST DISCOMFORT,PVC,SOB [id number] 12/04/2015 08:01:00 016 23:59:59 CLS Outpatient AGGIE KIRK FACC, ALI FACP CC DS [facility] CARD CHEST DISCOMFORT,PVS,SOB [id number] 09/04/2014 09:00:00 015 14:11:00 DIS [facility] [id number] 09/02/2014 13:53:00 015 23:59:59 CLS Outpatient REFUGIO MANZANARES MD [facility] PREOP LEFT TORN ACHILLES TEN DON [id number] 10/18/2013 08:36:00 014 23:59:59 CLS Outpatient ISABEL KIRBY DO [facility] RAD 733.00 [id number] 03/27/2013 17:54:00 23:59:59 CLS Outpatient [id number] 03/23/2013 09:40:00 23:59:59 CLS Outpatient ANITA TREVIÑO [facility] LAB HLP,STATIN [place] [id number] 01/26/2013 10:48:00 23:59:59 CLS Outpatient ISABEL KIRBY DO [facility] RAD SCREENING [id number] 10/03/2012 06:57:00 14:00:00 DIS Outpatient AGGIE KIRK FACC, JUANJO FOOTE CC DS [facility] CATH WIDE COMPLE X TACHYCARDIA,PALPITATIONS [id number] 09/27/2012 10:13:00 23:59:59 CLS Outpatient ANITA TREVIÑO [facility] CARD PVC,PALPITATION S [id number] 09/26/2012 09:02:00 23:59:59 CLS Outpatient ANITA TREVIÑO [facility] CARD PVC'S,PALPITATI ONS [id number] 09/19/2012 07:00:00 23:59:59 CLS Outpatient JUANJO MARCIAL MD, FACC, FACP CC DS [facility] LAB HLP [id number] 08/27/2019 11:16:00 P EN Preadmit REFUGIO MANZANARES MD [facility] REHAB LT TKA [id number] 08/22/2019 05:58:[address] Inpatient REFUGIO MANZANARES MD P [facility] 4TH LEFT KNEE OSTEOARTHRITIS [id number] 11/16/2017 11:39:00 Document Registration [id number] 06/23/2012 08:01:00 Document Registration [id number] 02/24/2012 18:50:00 Document Registration [id number] 01/24/2012 09:56:00 Document Registration [id number] 08/31/2011 07:47:00 Document Registration
--- NOTE | 2019-08-28 14:04 | Occupational Therapy Eval ---
OT Evaluation-General/PLF Medical Diagnosis Admission Date Aug 28, 2019 at 10:05 Medical Diagnosis: left TKA Onset Date: August 22, 2019 Therapy Diagnosis Therapy Diagnosis: impaired ADLs/ functional mobility Height/Weight Height (Feet): 5 Height (Inches): 4.00 Weight (Pounds): 183 Weight (Ounces): 5.0 Precautions Precautions/Isolations: Standard Precautions Weight Bear Status Weight Bearing Restriction: Weight Bearing/Tolerated Location Restriction: L LE Referral Physician: Marichuy Stafford DO Referral Reason: Evaluation/Treatment Medical History Additional Medical History arrhythmia, back pain, reflux, osteogenesis imperfecta, hyperlipidemia, sciatica, R patellar tendon repair, R meniscus repair, R oophorectomy, L achilles repair Current History s/p L TKA 08/22/2019, s/p L knee quadriceps tendon repair 08/24/2019 Social History Home: [facility] Current Living Status: Friend (2) Entry Into Home: Stairs With Railing Steps Into Home: 3 Pt lives in a 2 story house with 2 roommates, one of which is a retired RN. Pt lives upstairs, but plans on staying downstairs while she heals. ADL-Prior Level of Function SCALE: Activities may be completed with or without assistive devices. 1-Ppponlwjrt-tjkbncp completes the activity by him/herself with no assistance from a helper. 5-Set-up or Clean-up Assistance-helper sets up or cleans up; patient completes activity. [place] assists only prior to or following the activity. 4-Supervision or Touching Assistance-helper provides verbal cues and/or touching/steadying and/or contact guard assistance as patient completes activity. Assistance may be provided throughout the activity or intermittently. 3-Partial/Moderate Assistance-helper does LESS THAN HALF the effort. [place] lifts, holds or supports trunk or limbs, but provides less than half the effort. 2-Substantial/Maximal Assistance-helper does MORE THAN HALF the effort. [place] lifts or holds trunk or limbs and provides more than half the effort. 7-Wefxplptu-qjobvd does ALL the effort. Patient does none of the effort to complete the activity. Or, the assistance of 2 or more helpers is required for the patient to complete the activity. If activity was not attempted, code reason: 7-Patient Refused. 9-Not Applicable-not attempted and the patient did not perform the activity before the current illness, exacerbation or injury. 10-Not Attempted due to Environmental Limitations-(lack of equipment, weather restraints, etc.). 88-Not Attempted due to Medical Conditions or Safety Concerns. ADL PLOF Comments Pt was independent with ADLs at PLOF with rest breaks and task modification/activity modifications as needed. She has been using the walk in shower on the main level which has a shower chair. The upstairs restroom has a tub/shower. Pt was independent with functional mobility using a SPC. Self Care: Independent Functional Cognition: Independent DME/Equipment: Bath Chair, Shower, Tub/Shower DME/Equipment Comments SPC OT Current Status Subjective Pt laying in bed, agreeable to OT evaluation. Mental Status/Objective Patient Orientation: Person, Place, Time, Situation Attachments: Knee Immobilizer Current Glasses/Contacts: Yes Hearing Aids: No Dentures/Partials: Yes (partial) Hand Dominance: Right Upper Extremity ROM WFL Upper Extremity Coordination WFL Upper Extremity Sensation Pt denies tingling/numnbess BUEs Upper Extremity Strength grossly 4/5 MMT ADL-Treatment Eating (QC): 6 Oral Hygiene (QC): 5 (set up at tray table) Shower/Bathe Self (QC): 7 Upper Body Dressing (QC): 7 Lower Body Dressing (QC): 7 On/Off Footwear (QC): 7 Toileting Hygiene (QC): 4 (SBA, pt able to manage clothing and hygiene) Other Treatments Pt laying in bed, agreeable to OT eval/tx. OT educated pt on purpose and benefit s of OT while pt is admitted to ARU, she verbalized understanding. Pt provided information about PLOF and home set up, then participated in UE screen. Pt brushed her teeth with set up at tray table, then requested to use the restroom. Pt transferred supine to sit EOB with SBA, then transferred to the bathroom using FWW with SBA. Pt completed toileting, then stood at sink to wash her hands. Pt then transferred to the recliner. OT assisted pt with repositioning to comfort with legs elevated. Post OT session, pt sitting in recliner, call light in reach and all needs met. 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 2=Patient will verbalize/demonstrate understanding of assistive devices/modifications for ADL. 3=Patient will improve strength/tolerance for activity to enable patient to perform ADL's. OT Education/Plan Problem List/Assessment Assessment: Decreased Activ Tolerance, Decreased UE Strength, Impaired Funct Balance, Impaired I ADL's, Impaired Self-Care Skills Discharge Recommendations Plan/Recommendations: Continue POC Therapy Discharge Recommendati: Home & Family Equpiment Recommendations-D/C: Hip Kit Treatment Plan/Plan of Care Treatment,Training & Education: Yes Patient would benefit from OT for education, treatment and training to promote independence in ADL's, mobility, safety and/or upper extremity function for ADL's. Plan of Care: ADL Retraining, Functional Mobility, UE Funct Exercise/Act Treatment Duration: Sep 07, 2019 Frequency: At least 5 of 7 days/Wk (IRF) Estimated Hrs Per Day: 1.5 hours per day Rehab Potential: Fair Time/GCodes Start Time: 11:00 Stop Time: 11:50 Total Time Billed (hr/min): 50 Billed Treatment Time 1, EVM (25'), ADL 2 (25') LUISA MANCIA OT Aug 28, 2019 14:03
--- NOTE | 2019-08-28 14:15 | Occupational Ther Daily Note ---
OT Current Status-Daily Note Subjective Pt seated in recliner, agreeable to OT tx. She verbalized pain in L knee at 4/5 pain. Mental Status/Objective Patient Orientation: Normal For Age Attachments: Knee Immobilizer ADL-Treatment Therapy Code Descriptions/Definitions Functional [place] Measure: 0=Not Assessed/NA 4=Minimal Assistance 1=Total Assistance 5=Supervision or Setup 2=Maximal Assistance 6=Modified [place] 3=Moderate Assistance 7=Complete IndependenceSCALE: Activities may be completed with or without assistive devices. 7-Jsgewasxit-nkeweyl completes the activity by him/herself with no assistance from a helper. 5-Set-up or Clean-up Assistance-helper sets up or cleans up; patient completes activity. [place] assists only prior to or following the activity. 4-Supervision or Touching Assistance-helper provides verbal cues and/or touching/steadying and/or contact guard assistance as patient completes activity. Assistance may be provided throughout the activity or intermittently. 3-Partial/Moderate Assistance-helper does LESS THAN HALF the effort. [place] lifts, holds or supports trunk or limbs, but provides less than half the effort. 2-Substantial/Maximal Assistance-helper does MORE THAN HALF the effort. [place] lifts or holds trunk or limbs and provides more than half the effort. 1-Vkszoupps-zbwlcu does ALL the effort. Patient does none of the effort to complete the activity. Or, the assistance of 2 or more helpers is required for the patient to complete the activity. If activity was not attempted, code reason: 7-Patient Refused. 9-Not Applicable-not attempted and the patient did not perform the activity before the current illness, exacerbation or injury. 10-Not Attempted due to Environmental Limitations-(lack of equipment, weather restraints, etc.). 88-Not Attempted due to Medical Conditions or Safety Concerns. Eating (QC): 6 Bathing Location: L Arm, R Arm, L Upper Leg, R Upper Leg, R Lower Leg (including foot), Chest, Abdomen, Buttocks, Perineal Area Shower/Bathe Self (QC): 3 (Pt completed sponge bath at recliner, required assistance with L upper/lower leg & foot.) Upper Body Dressing (QC): 5 (set up) Lower Body Dressing (QC): 3 (SBA during stand. Pt able to don/doff pants/underwear over knee immobilizer using AE. Min A with donning/doffing knee immobilizer during sponge bath.) On/Off Footwear: 2 (PT able to don/doff sock on RLE. OT dependently doned/doffed TedHOSE BLEs & assisted with donning/doffing L sock) Other Treatment Pt seated in recliner, agreeable to OT tx. Pt completed sponge bath at recliner. OT assisted pt with doffing knee immobilizer in order to wash LLE. OT then assisted with donning knee immobilizer, then pt completed dressing. Post OT tx, pt seated in recliner, call light in reach and all needs met. Education OT Patient Education: Correct positioning, Energy conservation, Modified ADL techniques, Progress toward Goal/Update tx plan, Purpose of tx/functional activities, Use of adapted equipment Teaching Recipient: Patient Teaching Methods: Discussion Response to Teaching: Verbalize Understanding OT Short Term Goals Short Term Goals Time Frame: Sep 03, 2019 Putting on/taking off footwear: 3 OT Chief Lifestyle Officer Goals Chief Lifestyle Officer Goals Time Frame: Sep 07, 2019 Eating (QC): 6 Oral Hygiene (QC): 6 Toileting Hygiene (QC): 6 Shower/Bathe Self (QC): 6 Upper Body Dressing (QC): 6 Lower Body Dressing (QC): 6 On/Off Footwear (QC): 6 Additional Goals: 1-Demonstrate ADL Tasks, 2-Verbalize Understanding, 3- ImproveStrength/Alexsandra 1=Demonstrate adherence to instructed precautions during ADL tasks. 2=Patient will verbalize/demonstrate understanding of assistive devices/modifications for ADL. 3=Patient will improve strength/tolerance for activity to enable patient to perform ADL's. OT Education/Plan Problem List/Assessment Assessment: Decreased Activ Tolerance, Decreased UE Strength, Impaired I ADL's, Impaired Self-Care Skills Discharge Recommendations Plan/Recommendations: Continue POC Treatment Plan/Plan of Care Patient would benefit from OT for education, treatment and training to promote independence in ADL's, mobility, safety and/or upper extremity function for ADL's. Plan of Care: ADL Retraining, Functional Mobility, UE Funct Exercise/Act Treatment Duration: Sep 07, 2019 Frequency: At least 5 of 7 days/Wk (IRF) Estimated Hrs Per Day: 1.5 hours per day Rehab Potential: Fair Time/GCodes Start Time: 13:00 Stop Time: 13:50 Total Time Billed (hr/min): 50 Billed Treatment Time 1, ADL 3 LUISA MANCIA OT Aug 28, 2019 14:15
--- NOTE | 2019-08-28 14:25 | Physical Therapy Daily Note ---
PT Daily Note-Current Subjective Patient agrees to PT. No c/o at this time. Pain Numeric Pain Scale: 3 Location: Left Location Body Site: Knee Pain Description: Acute Mental Status Patient Orientation: Normal For Age Transfers SCALE: Activities may be completed with or without assistive devices. 3-Qzshhugzqv-nnoddiy completes the activity by him/herself with no assistance from a helper. 5-Set-up or Clean-up Assistance-helper sets up or cleans up; patient completes activity. [place] assists only prior to or following the activity. 4-Supervision or Touching Assistance-helper provides verbal cues and/or touching/steadying and/or contact guard assistance as patient completes activity. Assistance may be provided throughout the activity or intermittently. 3-Partial/Moderate Assistance-helper does LESS THAN HALF the effort. [place] lifts, holds or supports trunk or limbs, but provides less than half the effort. 2-Substantial/Maximal Assistance-helper does MORE THAN HALF the effort. [place] lifts or holds trunk or limbs and provides more than half the effort. 3-Xjveegaeq-ucsuln does ALL the effort. Patient does none of the effort to complete the activity. Or, the assistance of 2 or more helpers is required for the patient to complete the activity. If activity was not attempted, code reason: 7-Patient Refused. 9-Not Applicable-not attempted and the patient did not perform the activity before the current illness, exacerbation or injury. 10-Not Attempted due to Environmental Limitations-(lack of equipment, weather restraints, etc.). 88-Not Attempted due to Medical Conditions or Safety Concerns. Sit to Stand (QC): 6 Weight Bearing Right Lower Extremity: Right Full Weight Bearing Left Lower Extremity: Left Weight Bearing/Tolerated Gait Training Does the Patient Walk?: Yes Distance: 150' x 2 Walk 10 feet (QC): 6 Walk 50 ft with 2 Turns(QC): 6 Walk 150 ft (QC): 6 Gait Assistive Device: FWW trunk flexed posture with gait in FWW/repositioned knee immobilizer for appropriate placement Exercises Supine Ex: Ankle pumps, Quad Set Supine Reps: 15 Assessment Patient improving with treatment plan and has decreased c/o left LE pain. PT to increase activity as tolerated by patient. PT Short Term Goals Short Term Goals Time Frame: Sep 04, 2019 Roll Left & Right: 6 Sit to lyin Lying to sitting on side of be: 6 Sit to stand: 5 Chair/kbj-se-akbzr transfer: 5 Walk 10 feet: 5 Walk 50 feet with two turns: 5 Walk 150 feet: 5 PT Skilled Nursing Goals Awning Craftsperson Goals PT Skilled Nursing Goals Time Frame: Sep 18, 2019 Roll Left & Right (QC): 6 Sit to Lying (QC): 6 Lying-Sitting on Side/Bed(QC): 6 Sit to Stand (QC): 6 Chair/Iti-sn-Iimwc Xfer(QC): 6 Toilet Transfer (QC): 6 Car Transfer (QC): 6 Does the Patient Walk: Yes Walk 10 feet (QC): 6 Walk 50ft with 2 Turns (QC): 6 Walk 150 ft (QC): 6 Walking 10ft on Uneven Surface: 6 1 Step (curb) (QC): 4 4 Steps (QC): 4 12 Steps (QC): 88 Picking up an Object (QC): 88 Wheel 50 feet with 2 turns (QC: 9 Wheel 150 feet: 9 PT Plan Treatment/Plan Treatment Plan: Continue Plan of Care Treatment Plan: Bed Mobility, Education, Functional Activity [place], Functional Strength, Group Therapy, Gait, Safety, Therapeutic Exercise, Transfers Treatment Duration: Sep 18, 2019 Frequency: At least 5 of 7 days/Wk (IRF) Estimated Hrs Per Day: 1.5 hours per day Patient and/or Family Agrees t: Yes Time/GCodes Time In: 1405 Time Out: 1420 Total Billed Treatment Time: 15 Total Billed Treatment 1 visit FA 15 min WILVER GRIMM PT Aug 28, 2019 14:25
[2019-08-28] MEDS: DOCUSATE SODIUM 100 MG (COLACE) CAP PO SCH ×3 (14:46→20:18)
[2019-08-28] MEDS: polyethylene glycoL POWDER 17 GM (MIRALAX) PACK PO SCH ×3 (14:46→20:20)
--- NOTE | 2019-08-28 14:51 | ST Cognitive Linguistic Eval ---
Speech Evaluation-General Medical Diagnosis left TKA Onset Date: August 22, 2019 Therapy Diagnosis Therapy Diagnosis: Cognitive-communication Referral Referring Physician: Dr. Stafford Medical History Reviewed History: Yes Social History Current Living Status: Friend (2) Speech PLF-Current Status Prior Level of Function Patient lives at home with two room mates. 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 Subjective Patient was pleasant and cooperative with the cognitive assessment. Language Eval: Auditory Comprehends Simple Yes/No Ques: Functional Indent/Objects [place]: Functional Ident/Pics in Multiple [place]: Functional Follows 1-Step Commands: Functional Follows Complex Directions: Functional Follows General Conversations: Functional Language Eval: Verbal Language Completes Spontaneous Greeting: Functional Produces Auto, Serial Info: Functional Imitates Simple Words/Phrases: Functional Word Finding: Functional Requests Basic Needs: Functional States Basic Personal Info: Functional Expresses Complex Ideas: Functional Objective Cognitive Domain Attention: WNL Memory: WNL Problem Solving: Functional Executive Functions: WNL Visuospatial Skills: WNL Composite Severity Rating: WNL Clock Drawing Severity Rating: WNL Objective Formal/Standardized Tests [facility] Status ([facility]) Results 29/30, Within Normal Limits range of function Oral Motor/Speech Production Within Normal Limits Impression Patient is pleasant 64 y/o female who was admitted to the ARU s/p knee replacement. Patient was given the [facility] with a score of 29/30 obtained. Patient does not require further ST services at this time. Speech Patient Assess Expression of Ideas/Wants: Expression (4) Understanding Verbal Content: Understands (4) Brief Interview-Mental Status: Yes Repetition of Three Words: Three (3) Temporal Orientation: Year: Correct (3) Temporal Orientation: Month: Accurate within 5 days(2) Temporal Orientation: Day: Correct (1) Recall : Wear to say "Sock": Yes, no cue required (2) Recall : Color: Yes, no cue required (2) Recall : Bed: Yes, no cue required (2) Memory/Recall Ability: Current season, Location of own room, Staff names and faces, That he or she is in a hsp/hsp unit Speech-Plan Patient/Family Goals Patient/Family Goals: Patient plans on returning to her home where she will receive assistance from her friends. Treatment Plan Speech Therapy Treatment Plan: Discontinue ST Treatment Duration: Aug 28, 2019 Frequency: 1 time per week Estimated Hrs Per Day: .25 hour per day Rehab Potential: Fair Barriers to Learning: none identified Pt/Family Agrees to Plan: Yes Safety Risks/Education Teaching Recipient: Patient Teaching Methods: Discussion Response to Teaching: Verbalize Understanding Education Topics Provided: Safety within her room and communication of wants/needs Time Speech Therapy Time In: 14:30 Speech Therapy Time Out: 14:45 Total Billed Time: 15 Billed Treatment Time 1, SPSNDCOMP LYNETTE Castrejon Aug 28, 2019 14:51
[2019-08-28] MEDS: CYCLOBENZAPRINE 10 MG (FLEXERIL) TAB PO PRN ×2 (15:26→23:02)
[2019-08-28 16:44] VITALS: BP 115/72
--- NOTE | 2019-08-28 19:20 | NUR ---
bedside report received from STEVE ARGUETA, assume care of pt
[2019-08-28 20:15] VITALS: BP 117/73
[2019-08-28] MEDS: ENOXAPARIN 30 MG/0.3 ML (LOVENOX) SYR SC SCH (20:16)
--- NOTE | 2019-08-28 20:16 | NUR ---
pt took Colace & 1 Senokot, refused miralax, up in the chair with lt knee immobilizer on
[2019-08-28] MEDS: SENNA W/DOCUSATE (SENOKOT S) TABLET PO SCH (20:18)
[2019-08-28] MEDS: meTOprolol TARTRATE 50 MG (LOPRESSOR) TAB PO SCH (20:19)
--- NOTE | 2019-08-28 21:00 | NUR ---
c/o lt knee pain level 6/10 on numeric scale, Percocet 5/325 1 tab given
--- NOTE | 2019-08-28 21:40 | NUR ---
rates pain at 4/10 on numeric scale
--- NOTE | 2019-08-28 23:02 | NUR ---
pt requesting muscle relaxer, Flexeril 10mg given
--- NOTE | 2019-08-28 23:10 | NUR ---
c/o lt knee pain level 7/10 on numeric scale, Percocet 5/325 1 tab given
--- NOTE | 2019-08-28 23:45 | NUR ---
rates pain level 4/10 on numeric scale
[2019-08-29] MEDS: oxyCODONE/APAP 5/325MG (PERCOCET 5) TABLET PO PRN ×2 (04:30→06:20)
--- NOTE | 2019-08-29 04:30 | NUR ---
c/o lt knee pain level 7/10 on numeric scale, Percocet 5/325 1 tab given
[2019-08-29 04:56] LABS: BASOPHILS % (AUTO) 0 % (0-10); EOSINOPHILS # (AUTO) 0.2 10^3/uL (0.0-0.3); EOSINOPHILS % (AUTO) 2 % (0-10); HEMATOCRIT 26 % (35-52); HEMOGLOBIN 8.2 G/DL (11.5-16.0); LYMPHOCYTES # (AUTO) 1.7 X 10^3 (1.0-4.0); LYMPHOCYTES % (AUTO) 20 % (12-44); MEAN CORPUSCULAR HEMOGLOBIN 30 PG (25-34); MEAN CORPUSCULAR HGB CONC 32 G/DL (32-36); MEAN CORPUSCULAR VOLUME 92 FL (80-99); MEAN PLATELET VOLUME 9.1 FL (7.4-10.4); MONOCYTES # (AUTO) 1.5 X 10^3 (0.0-1.0); MONOCYTES % (AUTO) 18 % (0-12); NEUTROPHILS # (AUTO) 4.8 X 10^3 (1.8-7.8); NEUTROPHILS % (AUTO) 59 % (42-75); PLATELET COUNT 268 10^3/uL (130-400); RED CELL DISTRIBUTION WIDTH 14.7 % (10.0-14.5); WHITE BLOOD COUNT 8.1 10^3/uL (4.3-11.0)
--- NOTE | 2019-08-29 05:03 | NUR ---
resting quietly in bed, pain level 0/10 on CNPI scale
[2019-08-29 05:09] LABS: ALBUMIN 3.4 GM/DL (3.2-4.5); CHLORIDE 104 MMOL/L (98-107); SODIUM 137 MMOL/L (135-145)
[2019-08-29 05:12] LABS: GLUCOSE 105 MG/DL (70-105); TOTAL PROTEIN 6.5 GM/DL (6.4-8.2)
[2019-08-29 05:13] LABS: CARBON DIOXIDE 22 MMOL/L (21-32)
[2019-08-29 05:14] LABS: BILIRUBIN,TOTAL 0.9 MG/DL (0.1-1.0)
[2019-08-29 05:15] LABS: ALKALINE PHOSPHATASE 107 U/L (40-136)
[2019-08-29 05:16] LABS: CREATININE SERUM 0.66 MG/DL (0.60-1.30); GFR ESTIMATED > 60
[2019-08-29 05:17] LABS: BUN/CREATININE RATIO 17
[2019-08-29 05:18] LABS: ALANINE AMINOTRANSFERASE 66 U/L (0-55)
[2019-08-29 05:31] VITALS: BP 128/72
[2019-08-29] MEDS: MULTIVIT W/MINERALS TAB (THERAGRAN M) PO SCH (06:19)
--- NOTE | 2019-08-29 06:20 | NUR ---
c/o lt knee pain, level 5/10 on numeric scale, Percocet 5/325 1 tab given
--- NOTE | 2019-08-29 07:00 | NUR ---
rates pain level 4/10 on numeric scale
[2019-08-29 08:00] VITALS: BP 124/77
[2019-08-29] MEDS: DOCUSATE SODIUM 100 MG (COLACE) CAP PO SCH ×2 (08:15→21:02)
[2019-08-29] MEDS: meTOprolol TARTRATE 50 MG (LOPRESSOR) TAB PO SCH ×2 (08:15→21:02)
[2019-08-29] MEDS: ASPIRIN E.C. 81 MG (ECOTRIN) TAB PO SCH (08:15)
[2019-08-29] MEDS: FAMOTIDINE 20 MG (PEPCID) TABLET PO SCH (08:16)
[2019-08-29] MEDS: polyethylene glycoL POWDER 17 GM (MIRALAX) PACK PO SCH ×2 (08:17→21:06)
[2019-08-29] MEDS: ENOXAPARIN 30 MG/0.3 ML (LOVENOX) SYR SC SCH ×2 (08:17→20:23)
[2019-08-29] MEDS: SENNA W/DOCUSATE (SENOKOT S) TABLET PO SCH ×2 (08:28→21:02)
--- NOTE | 2019-08-29 09:15 | PM&R Progress Note ---
Subjective HPI/CC On Admission Date Seen by Provider: Aug 29, 2019 Time Seen by Provider: 09:15 Subjective/Events-last exam Pt doing pretty well Bowels are moving now Pain is pretty well controlled Slept on and off last night No chest pain or SOB No wheezing noted on exam Checked meds and labs Conferred with RN Reviewed therapy notes Review of Systems Musculoskeletal: leg pain Objective Exam Vital Signs Vital Signs Date Time Temp Pulse Resp B/P (MAP) Pulse Ox O2 Delivery O2 Flow Rate FiO2 08/29/19 17:48 37.6 111 18 123/75 (91) 100 Room Air Capillary Refill : Less Than 3 Seconds General Appearance: No Apparent Distress, WD/WN HEENT: PERRL/EOMI, Normal ENT Inspection, Pharynx Normal Neck: Full Range of Motion, Normal Inspection, Non Tender, Supple, Carotid Bruit Respiratory: Chest Non Tender, Lungs Clear, Normal Breath Sounds, No Accessory Muscle Use, No Respiratory Distress Cardiovascular: Regular Rate, Rhythm, No Edema, No Gallop, No JVD, No Murmur, Normal Peripheral Pulses Gastrointestinal: Normal Bowel Sounds, No Organomegaly, No Pulsatile Mass, Non Tender, Soft Back: Normal Inspection, No CVA Tenderness, No Vertebral Tenderness Extremity: Normal Capillary Refill, Normal Inspection, Normal Range of Motion (left leg in immobilizer), Non Tender, No Calf Tenderness, No Pedal Edema Neurologic/Psychiatric: Alert, Oriented x3, No Motor/Sensory Deficits, Normal Mood/Affect, nylon operator II-XII Norm as Tested, Abnormal Gait Skin: Normal Color, Warm/Dry Lymphatic: No Adenopathy Results/Procedures Lab Laboratory Tests 08/29/19 04:42 Patient resulted labs reviewed. FIM Transfers Therapy Code Descriptions/Definitions Functional [place] Measure: 0=Not Assessed/NA 4=Minimal Assistance 1=Total Assistance 5=Supervision or Setup 2=Maximal Assistance 6=Modified [place] 3=Moderate Assistance 7=Complete IndependenceSCALE: Activities may be completed with or without assistive devices. 5-Yktiweprxo-bhfxyip completes the activity by him/herself with no assistance from a helper. 5-Set-up or Clean-up Assistance-helper sets up or cleans up; patient completes activity. [place] assists only prior to or following the activity. 4-Supervision or Touching Assistance-helper provides verbal cues and/or touching/steadying and/or contact guard assistance as patient completes activity. Assistance may be provided throughout the activity or intermittently. 3-Partial/Moderate Assistance-helper does LESS THAN HALF the effort. [place] lifts, holds or supports trunk or limbs, but provides less than half the effort. 2-Substantial/Maximal Assistance-helper does MORE THAN HALF the effort. [place] lifts or holds trunk or limbs and provides more than half the effort. 0-Tpxsjteow-vdioar does ALL the effort. Patient does none of the effort to complete the activity. Or, the assistance of 2 or more helpers is required for the patient to complete the activity. If activity was not attempted, code reason: 7-Patient Refused. 9-Not Applicable-not attempted and the patient did not perform the activity before the current illness, exacerbation or injury. 10-Not Attempted due to Environmental Limitations-(lack of equipment, weather restraints, etc.). 88-Not Attempted due to Medical Conditions or Safety Concerns. Roll Left to Right (QC): 6 Sit to Lying (QC): 3 Sit to Stand (QC): 6 Chair/Kps-mn-Mcgyj Xfer(QC): 4 Car Transfer (QC): 88 Gait Training Does the Patient Walk?: Yes Distance: 150' x 2 Walk 10 feet (QC): 6 Walk 50 ft with 2 Turns(QC): 6 Walk 150 ft (QC): 6 Walking 10ft/uneven surface-QC: 4 Gait Assistive Device: FWW Wheelchair Training Does the Pt Use a Wheelchair?: No Wheel 50 ft with 2 turns (QC): 9 Wheel 150 ft (QC): 9 Stair Training 1 Step (curb) (QC): 88 4 Steps (QC): 88 12 Steps (QC): 88 Balance Picking up an Object (QC): 88 ADL-Treatment Eating (QC): 6 Oral Hygiene (QC): 5 (set up at tray table) Bathing Location: L Arm, R Arm, L Upper Leg, R Upper Leg, R Lower Leg (including foot), Chest, Abdomen, Buttocks, Perineal Area Shower/Bathe Self (QC): 3 (Pt completed sponge bath at recliner, required a ssistance with L upper/lower leg & foot.) Upper Body Dressing (QC): 5 (set up) Lower Body Dressing (QC): 3 (SBA during stand. Pt able to don/doff pants/unde rwear over knee immobilizer using AE. Min A with donning/doffing knee immobilizer during sponge bath.) On/Off Footwear (QC): 2 (PT able to don/doff sock on RLE. OT dependently do sena/doffed TedHOSE BLEs & assisted with donning/doffing L sock) Toileting Hygiene (QC): 4 (SBA, pt able to manage clothing and hygiene) Assessment/Plan Assessment and Plan Assess & Plan/Chief Complaint Assessment: s/p left total knee replacement Dr Gann s/p revision due to tendon dysfunction HLP Cardiac arrhythmia Smoker Post op anemia Plan: Iron level Monitor BP IRF protocol Pain meds BM regimen (1) S/P total knee arthroplasty Status: Acute (2) Cardiac arrhythmia (3) Smoker (4) Quadriceps tendon rupture Status: Acute (5) Osteoarthritis of left knee Status: Acute (6) HLD (hyperlipidemia) Status: Chronic (7) HTN (hypertension) Status: Chronic (8) GERD (gastroesophageal reflux disease) Status: Chronic JUAN JOSE SNYDER DO Aug 29, 2019 09:15
--- NOTE | 2019-08-29 09:15 | Individualized Plan of Care ---
Individualized Plan of Care Rehab Nursing IPOC Order Admission Date Aug 28, 2019 at 10:05 Current Orders Orders Admission Order(Inpt,Obs,Sdc) (08/27/19 18:14) Vital Signs: Per Unit Policy ( 08,16,00 (08/27/19 18:14) Bill Mackenzie 09,21 (08/27/19 18:14) Sequential Compression Device Q4H (08/27/19 18:14) Transactional Attorney-Inpt Rehab Con (08/27/19 18:14) Rehab Nursing Orders-Ipoc (08/27/19 18:14) Physical Therapy Rehab Orders (08/27/19 18:14) Occupational Therapy Rehab Ord (08/27/19 18:14) Speech Therapy Rehab Orders (08/27/19 18:14) Cbc With Automated Diff (08/29/19 06:00) Comprehensive Metabolic Panel (08/29/19 06:00) General/Regular (08/28/19 Breakfast) Intake & Output ,, (08/27/19 18:14) Precautions (Aru) (08/27/19 18:14) Weekly Weight WEEK (08/27/19 18:14) Rehab-Intensity Of Therapy (08/27/19 18:14) Initiate Admission Nursing Pro .admission (08/27/19 18:14) Alprazolam Tablet (Xanax Tablet) (08/27/19 18:15) Calcium Carbonate Chew Tablet (Antacid C (08/27/19 18:15) Diphenhydramine Tablet (Benadryl Tablet) (08/27/19 18:15) Docusate Sodium Capsule (Colace Capsule) (08/27/19 21:00) Docusate Sodium Capsule (Colace Capsule) (08/27/19 18:15) Bisacodyl Suppository (Dulcolax Supposit (08/27/19 18:15) Lactulose Oral Solution (Enulose Oral So (08/27/19 18:15) Na Phos/Na Biphos Enema (Fleet Enema Cristian (08/27/19 18:15) Guaifenesin/Codeine Syrup (Robitussin Ac (08/27/19 18:15) Loperamide Tablet (Imodium Tablet) (08/27/19 18:15) Melatonin Tablet (Melatonin Tablet) (08/27/19 18:15) Polyethylene Glycol Powder Pkt (Miralax (08/27/19 21:00) Ondansetron Oral Dissolve Tab (Zofran (08/27/19 18:15) Admission Arrival Bed Request (08/28/19 10:25) Dressing Order (Intervention) DAILY (08/28/19 10:55) Incentive Spirometry (Nursing) Q2H (08/28/19 10:55) Bill Hose (08/28/19 10:55) Vital Signs: Every 4 Hours (Or (08/28/19 10:55) Weight Bearing Status (08/28/19 10:55) General/Regular (08/28/19 Dinner) Aspirin Enteric Coated Tablet (Ecotrin T (08/29/19 09:00) Atorvastatin Tablet (Lipitor Tablet) (08/28/19 21:00) Cyclobenzaprine Tablet (Flexeril Tablet) (08/28/19 11:00) Enoxaparin Injection (Lovenox Injection) (08/28/19 20:00) Famotidine Tablet (Pepcid Tablet) (08/29/19 09:00) Therapeutic Multivitamin Tab (Vitamins, (08/29/19 07:00) Senna S Tablet (Senokot S Tablet) (08/28/19 21:00) Acetaminophen Tablet/Caplet (Tylenol T (08/28/19 11:00) Ondansetron Injection (Zofran Injectio (08/28/19 11:00) Diphenhydramine Injection (Benadryl Inje (08/28/19 11:00) Metoprolol Tartrate (Ir) Tab (Lopressor (08/28/19 21:00) Oxycodone/Apap 5/325mg Tablet (Percocet (08/28/19 11:00) Admission Arrival Bed Request (08/28/19 11:28) General/Regular (08/28/19 Lunch) Patient Visit (08/28/19 ) Speech Sound Lang Comp (08/28/19 ) Patient Visit (08/28/19 ) Functional Activities, Ea 15 (08/28/19 ) Ambulate 08,12,20 (08/28/19 15:09) Sequential Compression Device Q4H (08/28/19 15:09) Dvt/Vte Risk - Notifiy Physici Q4H (08/28/19 15:09) Patient Visit (08/28/19 ) Pt Eval Moderate Complexity (08/28/19 ) Gait Training, Ea 15 Min (08/28/19 ) Exercise Therap, Ea 15 Min (08/28/19 ) Iron Test (Fe) (08/29/19 06:56) Oxycodone Immediate Rel Tablet (Oxyir Ta (08/29/19 09:15) Patient Visit (08/29/19 ) Exercise Therap, Ea 15 Min (08/29/19 ) Gait Training, Ea 15 Min (08/29/19 ) Functional Activities, Ea 15 (08/29/19 ) Rehab Nursing Orders: Ongoing Assess. of Function Status, Bladder Management, Bladder Scan, Bladder Training, Bowel Management, Bowel Training, Disease Management & Educaiton, DVT Prophylaxis, Fall Prevention, Fluid/Electrolyte/Nutrition Mgmt, Infection Prevention, Medication Management & Education, Management of Risks & Complications, Nutrition Management, Pain Management, Patient/Family Support, Safety Management Intensity of Therapy to be met Patient to be seen: Min.3h per day/5 of 7d PT IPOC Problem List: Activity Tolerance, Functional Strength, Safety, Balance, Gait, Transfer, Bed Mobility, ROM Treatment Plan: Continue Plan of Care Bed Mobility, Education, Functional Activity Alexsandra, Functional Strength, Group Therapy, Gait, Safety, Therapeutic Exercise, Transfers Treatment Duration: Sep 18, 2019 Frequency: At least 5 of 7 days/Wk (IRF) Estimated Hrs Per Day: 1.5 hours per day OT IPOC Problems: Decreased Activ Tolerance, Decreased UE Strength, Impaired I ADL's, Impaired Self-Care Skills OT Treatment, Training and Edu: Yes Plan of Care: ADL Retraining, Functional Mobility, UE Funct Exercise/Act Treatment Duration: Sep 07, 2019 Frequency: At least 5 of 7 days/Wk (IRF) Estimated Hrs Per Day: 1.[address] IPOC Speech Therapy Treatment Plan: Discontinue ST Treatment Duration: Aug 28, 2019 Frequency: 1 time per week Estimated Hrs Per Day: .25 hour per day Transactional Attorney/Case Mgmt Transactional Attorney/Case Managemen: Discharge Planning Dietitian/Hide And Skin Fleshing Machine Operator Dietitian/Hide And Skin Fleshing Machine Operator to monitor nutritional status and make changes and/or recommendations as needed and work with speech pathology on dietary upgrades as the occur. Physician IPOC Medical Issues being managed closely and that require the 24 hour availability of a physician: Recent total knee replacement requiring revision due to tendon dysfunction and h/o cardiac arrhythmias with current smoking status will require close monitoring Medical Issues: Bowel/Bladder Function, DVT Prophylaxis, Falls Precautions, Fluid/Electrolyte/Nutrition Balance, Infection Protection, Pain Management Brief Synthesis of Preadmission Screen, Post-Admission Evaluation, and Therapy Evaluations: PT OT will both focus on regaining function while remaining non-weight bearing and left leg immobilizer while regaining ADL function Medical Prognosis: Good Anticipated Length of Stay: 7 days JUAN JOSE SNYDER DO Aug 29, 2019 09:15
--- NOTE | 2019-08-29 10:48 | Progress Note ---
Standard Progress Note Progress Notes/Assess & Plan Date Seen by a Provider: Aug 29, 2019 Time Seen by a Provider: 10:46 Progress/Assessment & Plan no complaints Vital Signs Date Time Temp Pulse Resp B/P (MAP) Pulse Ox O2 Delivery O2 Flow Rate FiO2 08/29/19 05:31 36.9 90 18 128/72 (90) 98 Room Air 08/28/19 20:18 100 Room Air 08/28/19 20:15 103 18 117/73 (88) 100 Room Air 08/28/19 16:44 36.8 84 18 115/72 (86) 99 Room Air 08/28/19 15:30 Room Air 08/28/19 11:53 35.6 84 16 119/75 98 Room Air I & O 08/29/19 07:00 Intake Total 700 ml Balance 700 ml Laboratory Tests Test 08/29/19 04:42 Range/Units White Blood Count 8.1 4.3-11.0 10^3/uL Red Blood Count 2.78 L 4.35-5.85 10^6/uL Hemoglobin 8.2 L 11.5-16.0 G/DL Hematocrit 26 L 35-52 % Mean Corpuscular Volume 92 80-99 FL Mean Corpuscular Hemoglobin 30 25-34 PG Mean Corpuscular Hemoglobin Concent 32 32-36 G/DL Red Cell Distribution Width 14.7 H 10.0-14.5 % Platelet Count 268 130-400 10^3/uL Mean Platelet Volume 9.1 7.4-10.4 FL Neutrophils (%) (Auto) 59 42-75 % Lymphocytes (%) (Auto) 20 12-44 % Monocytes (%) (Auto) 18 H 0-12 % Eosinophils (%) (Auto) 2 0-10 % Basophils (%) (Auto) 0 0-10 % Neutrophils # (Auto) 4.8 1.8-7.8 X 10^3 Lymphocytes # (Auto) 1.7 1.0-4.0 X 10^3 Monocytes # (Auto) 1.5 H 0.0-1.0 X 10^3 Eosinophils # (Auto) 0.2 0.0-0.3 10^3/uL Basophils # (Auto) 0.0 0.0-0.1 10^3/uL Sodium Level 137 135-145 MMOL/L Potassium Level 4.0 3.6-5.0 MMOL/L Chloride Level 104 98-107 MMOL/L Carbon Dioxide Level 22 21-32 MMOL/L Anion Gap 11 5-14 MMOL/L Blood Urea Nitrogen 11 7-18 MG/DL Creatinine 0.66 0.60-1.30 MG/DL Estimat Glomerular Filtration Rate > 60 BUN/Creatinine Ratio 17 Glucose Level 105 70-105 MG/DL Calcium Level 9.0 8.5-10.1 MG/DL Corrected Calcium 9.5 8.5-10.1 MG/DL Total Bilirubin 0.9 0.1-1.0 MG/DL Aspartate Amino Transf (AST/SGOT) 61 H 5-34 U/L Alanine Aminotransferase (ALT/SGPT) 66 H 0-55 U/L Alkaline Phosphatase 107 40-136 U/L Total Protein 6.5 6.4-8.2 GM/DL Albumin 3.4 3.2-4.5 GM/DL LLE--dressing in place. No calf tenderness. Neg Shawn's s/p LTKA with quad repair PT/OT ok to SLR/ quad sets with brace locked REFUGIO MANZANARES MD Aug 29, 2019 10:48
--- NOTE | 2019-08-29 11:10 | Occupational Ther Daily Note ---
OT Current Status-Daily Note Subjective Pt alert, sitting in recliner. Pt agrees to therapy. Pt does not c/o pain initially, at end of session 6/10 pain reported to nrsg, administered pain meds. Mental Status/Objective Patient Orientation: Person, Place, Time, Situation ADL-Treatment Pt agrees to shower. Pt able to retrieve clothing using FWW, mod I. Assist to cover L LE knee immobilizer for shower. Pt completed shower by self using AE for safety. Pt able to don/doff lower body clothing without AE, SBA for safety in standing. Mod I for upper body dressing. Dons/doffs R sock independently, working on using sock aide to don sock and dressing stick to doff, assist to don/doff MICHEAL hose on L LE. Pt able to don/doff immobilizer. Pt standing at sink to complete oral care, mod I. After session, PT took over care of pt. All needs met in room. Therapy Code Descriptions/Definitions Functional [place] Measure: 0=Not Assessed/NA 4=Minimal Assistance 1=Total Assistance 5=Supervision or Setup 2=Maximal Assistance 6=Modified [place] 3=Moderate Assistance 7=Complete IndependenceSCALE: Activities may be completed with or without assistive devices. 4-Lnglcqophm-gclcazq completes the activity by him/herself with no assistance from a helper. 5-Set-up or Clean-up Assistance-helper sets up or cleans up; patient completes activity. [place] assists only prior to or following the activity. 4-Supervision or Touching Assistance-helper provides verbal cues and/or touching/steadying and/or contact guard assistance as patient completes activity. Assistance may be provided throughout the activity or intermittently. 3-Partial/Moderate Assistance-helper does LESS THAN HALF the effort. [place] lifts, holds or supports trunk or limbs, but provides less than half the effort. 2-Substantial/Maximal Assistance-helper does MORE THAN HALF the effort. [place] lifts or holds trunk or limbs and provides more than half the effort. 0-Fhyfxpbpx-ygbkln does ALL the effort. Patient does none of the effort to complete the activity. Or, the assistance of 2 or more helpers is required for the patient to complete the activity. If activity was not attempted, code reason: 7-Patient Refused. 9-Not Applicable-not attempted and the patient did not perform the activity before the current illness, exacerbation or injury. 10-Not Attempted due to Environmental Limitations-(lack of equipment, weather restraints, etc.). 88-Not Attempted due to Medical Conditions or Safety Concerns. Oral Hygiene (QC): 6 Shower/Bathe Self (QC): 5 Upper Body Dressing (QC): 6 Lower Body Dressing (QC): 4 On/Off Footwear: 3 OT Short Term Goals Short Term Goals Time Frame: Sep 03, 2019 Putting on/taking off footwear: 3 OT Club Room Attendant Goals [facility] Goals Time Frame: Sep 07, 2019 Eating (QC): 6 Oral Hygiene (QC): 6 Toileting Hygiene (QC): 6 Shower/Bathe Self (QC): 6 Upper Body Dressing (QC): 6 Lower Body Dressing (QC): 6 On/Off Footwear (QC): 6 Additional Goals: 1-Demonstrate ADL Tasks, 2-Verbalize Understanding, 3- ImproveStrength/Alexsandra 1=Demonstrate adherence to instructed precautions during ADL tasks. 2=Patient will verbalize/demonstrate understanding of assistive devices/modifications for ADL. 3=Patient will improve strength/tolerance for activity to enable patient to perform ADL's. OT Education/Plan Problem List/Assessment Assessment: Decreased UE Strength, Impaired Self-Care Skills Discharge Recommendations Plan/Recommendations: Continue POC Treatment Plan/Plan of Care Patient would benefit from OT for education, treatment and training to promote independence in ADL's, mobility, safety and/or upper extremity function for ADL's. Plan of Care: ADL Retraining, Functional Mobility, UE Funct Exercise/Act Treatment Duration: Sep 07, 2019 Frequency: At least 5 of 7 days/Wk (IRF) Estimated Hrs Per Day: 1.5 hours per day Rehab Potential: Fair Time/GCodes Start Time: 09:00 Stop Time: 10:00 Total Time Billed (hr/min): 60 Billed Treatment Time 1 visit-ADL 4 (60 min) CARMINE BELTRAN Aug 29, 2019 11:10
--- NOTE | 2019-08-29 11:22 | Physical Therapy Daily Note ---
PT Daily Note-Current Subjective Pt. agrees to Rx. Explains that she would like to be up ad lesia but is patient given she cannot independently get in out bed etc. During rx pt. c/o pain 10/10 with exercises then 6/10 after ex during gait then even lower at 2/10 in recliner resting Pain Numeric Pain Scale: 10-Worst Possible Pain Location: Left Location Body Site: Knee Pain Description: Stabbing Mental Status Patient Orientation: Normal For Age Attachments: Other-See Comments (left knee immoblizer) Transfers SCALE: Activities may be completed with or without assistive devices. 7-Rnwppnvmps-fqkzenv completes the activity by him/herself with no assistance from a helper. 5-Set-up or Clean-up Assistance-helper sets up or cleans up; patient completes activity. [place] assists only prior to or following the activity. 4-Supervision or Touching Assistance-helper provides verbal cues and/or touchin g/steadying and/or contact guard assistance as patient completes activity. Assistance may be provided throughout the activity or intermittently. 3-Partial/Moderate Assistance-helper does LESS THAN HALF the effort. [place] lifts, holds or supports trunk or limbs, but provides less than half the effort. 2-Substantial/Maximal Assistance-helper does MORE THAN HALF the effort. [place] lifts or holds trunk or limbs and provides more than half the effort. 6-Jyimiuyno-yegqwt does ALL the effort. Patient does none of the effort to complete the activity. Or, the assistance of 2 or more helpers is required for the patient to complete the activity. If activity was not attempted, code reason: 7-Patient Refused. 9-Not Applicable-not attempted and the patient did not perform the activity before the current illness, exacerbation or injury. 10-Not Attempted due to Environmental Limitations-(lack of equipment, weather restraints, etc.). 88-Not Attempted due to Medical Conditions or Safety Concerns. Roll Left & Right (QC): 6 Sit to Lying (QC): 3 Lying to Sitting/Side of Bed(Q: 4 Sit to Stand (QC): 4 Chair/Tsz-bt-Kzlej Xfer(QC): 5 pt. needs assist with LLE during sup to sit and sit to sup Weight Bearing Right Lower Extremity: Right Full Weight Bearing Left Lower Extremity: Left Weight Bearing/Tolerated Gait Training Does the Patient Walk?: Yes Walk 10 feet (QC): 5 Walk 50 ft with 2 Turns(QC): 5 Walk 150 ft (QC): 5 Gait Persons Needed: 1 Gait Assistive Device: FWW SBA slow, careful, moderate weight bearing on device, pt. needed rest breaks at about 80 ft x 5 trials Exercises Supine Ex: Ankle pumps, Quad Set, Rolling, Glut sets, Heel Slides (right only), Short Arc Quads (right only), Straight leg raise (indep right , mod assist left), Hip abd/add (assist left only) Supine Reps: 15 (3 sets 5) Seated Therapy Exercises: Ankle pumps, Sit to stand, Long arc quads (right only), Hip flexion (right only) Seated Reps: 15 Treatments Merritt BROWN was consulted to clear SLR on LLE. Dr Gann was contacted and cleared this with stipulation that knee immobilizer is locked out at 0 for SLR. Pt. needed mod assist and did only 5 reps of this , then immobilizer was moved back to 0-30 degrees and locked again Assessment Current Status: Good Progress the idea of up ad lesia was mentioned but pt. continues dependent for safe in out bed and with OI Dx and quadriceps issue this BUSINESS ANALYTICS DIRECTOR feels it is prudent to have pt. continue with SBA to CGA for all mobility PT Short Term Goals Short Term Goals Time Frame: Sep 04, 2019 Roll Left & Right: 6 Sit to lyin Lying to sitting on side of be: 6 Sit to stand: 5 Chair/mva-wu-uqrdv transfer: 5 Walk 10 feet: 5 Walk 50 feet with two turns: 5 Walk 150 feet: 5 PT Surgical Device Sales Representative Goals Senior Care Goals PT Senior Care Goals Time Frame: Sep 18, 2019 Roll Left & Right (QC): 6 Sit to Lying (QC): 6 Lying-Sitting on Side/Bed(QC): 6 Sit to Stand (QC): 6 Chair/Xwa-gv-Greiy Xfer(QC): 6 Toilet Transfer (QC): 6 Car Transfer (QC): 6 Does the Patient Walk: Yes Walk 10 feet (QC): 6 Walk 50ft with 2 Turns (QC): 6 Walk 150 ft (QC): 6 Walking 10ft on Uneven Surface: 6 1 Step (curb) (QC): 4 4 Steps (QC): 4 12 Steps (QC): 88 Picking up an Object (QC): 88 Wheel 50 feet with 2 turns (QC: 9 Wheel 150 feet: 9 PT Plan Treatment/Plan Treatment Plan: Continue Plan of Care Treatment Plan: Bed Mobility, Education, Functional Activity Alexsandra, Functional Strength, Group Therapy, Gait, Safety, Therapeutic Exercise, Transfers Treatment Duration: Sep 18, 2019 Frequency: At least 5 of 7 days/Wk (IRF) Estimated Hrs Per Day: 1.5 hours per day Patient and/or Family Agrees t: Yes Safety Risks/Education Patient Education: Gait Training, Transfer Techniques, Correct Positioning, Reviewed Don/Doff Brace (needs assist), Disease Process, Safety Issues Teaching Recipient: Patient Teaching Methods: Demonstration, Discussion Response to Teaching: Verbalize Understanding, Return Demonstration, Reinforcement Needed Time/GCodes Time In: 1010 Time Out: 1110 Total Billed Treatment Time: 60 Total Billed Treatment 1,EX30m,GT15m,FA15m AARTI SCHULTZ BUSINESS ANALYTICS DIRECTOR Aug 29, 2019 11:22
--- NOTE | 2019-08-29 13:37 | Occupational Ther Daily Note ---
OT Current Status-Daily Note Subjective Pt alert, sitting in recliner. Pt agrees to therapy. No c/o pain at this time. Mental Status/Objective Patient Orientation: Person, Place, Time, Situation ADL-Treatment Therapy Code Descriptions/Definitions Functional [place] Measure: 0=Not Assessed/NA 4=Minimal Assistance 1=Total Assistance 5=Supervision or Setup 2=Maximal Assistance 6=Modified [place] 3=Moderate Assistance 7=Complete IndependenceSCALE: Activities may be completed with or without assistive devices. 6-Dwbxndauvk-aqdjfpg completes the activity by him/herself with no assistance from a helper. 5-Set-up or Clean-up Assistance-helper sets up or cleans up; patient completes activity. [place] assists only prior to or following the activity. 4-Supervision or Touching Assistance-helper provides verbal cues and/or touchi ng/steadying and/or contact guard assistance as patient completes activity. Assistance may be provided throughout the activity or intermittently. 3-Partial/Moderate Assistance-helper does LESS THAN HALF the effort. [place] lifts, holds or supports trunk or limbs, but provides less than half the effort. 2-Substantial/Maximal Assistance-helper does MORE THAN HALF the effort. [place] lifts or holds trunk or limbs and provides more than half the effort. 5-Fxkophwor-algujr does ALL the effort. Patient does none of the effort to complete the activity. Or, the assistance of 2 or more helpers is required for the patient to complete the activity. If activity was not attempted, code reason: 7-Patient Refused. 9-Not Applicable-not attempted and the patient did not perform the activity before the current illness, exacerbation or injury. 10-Not Attempted due to Environmental Limitations-(lack of equipment, weather restraints, etc.). 88-Not Attempted due to Medical Conditions or Safety Concerns. Other Treatment Educated pt on using leg rate manager to assist L LE into/out of bed. Pt demonstrated understanding and proficiency using leg rate manager. Pt then ambulated to and from laundry, with 2 lengthy recovery breaks-one going and one coming back. After session, pt sitting in recliner with call light/phone in reach. All needs met in room. OT Short Term Goals Short Term Goals Time Frame: Sep 03, 2019 Putting on/taking off footwear: 3 OT Combiner Operator Goals Care Home Goals Time Frame: Sep 07, 2019 Eating (QC): 6 Oral Hygiene (QC): 6 Toileting Hygiene (QC): 6 Shower/Bathe Self (QC): 6 Upper Body Dressing (QC): 6 Lower Body Dressing (QC): 6 On/Off Footwear (QC): 6 Additional Goals: 1-Demonstrate ADL Tasks, 2-Verbalize Understanding, 3- ImproveStrength/Alexsandra 1=Demonstrate adherence to instructed precautions during ADL tasks. 2=Patient will verbalize/demonstrate understanding of assistive devices/modifications for ADL. 3=Patient will improve strength/tolerance for activity to enable patient to perform ADL's. OT Education/Plan Problem List/Assessment Assessment: Decreased Activ Tolerance, Impaired Self-Care Skills Discharge Recommendations Plan/Recommendations: Continue POC Treatment Plan/Plan of Care Patient would benefit from OT for education, treatment and training to promote independence in ADL's, mobility, safety and/or upper extremity function for ADL's. Plan of Care: ADL Retraining, Functional Mobility, UE Funct Exercise/Act Treatment Duration: Sep 07, 2019 Frequency: At least 5 of 7 days/Wk (IRF) Estimated Hrs Per Day: 1.5 hours per day Rehab Potential: Fair Time/GCodes Start Time: 13:00 Stop Time: 13:30 Total Time Billed (hr/min): 30 Billed Treatment Time 1 visit-FA 2 (30 min) CARMINE BELTRAN Aug 29, 2019 13:37
--- NOTE | 2019-08-29 14:19 | Physical Therapy Daily Note ---
PT Daily Note-Current Subjective Pt. up in recliner, 1st off inquires about adjusting immobilizer as it has ridden down on her ankle. During rx pt c/o pain at 9/10 which exacerbates while walking and is somewhat relieved by rest, skyler with LEs elevated in recliner Pain Numeric Pain Scale: 9 Location: Left Location Body Site: Knee Pain Description: Stabbing Mental Status Patient Orientation: Normal For Age Attachments: Other-See Comments (knee immobilizer) Transfers SCALE: Activities may be completed with or without assistive devices. 6-Eyojuebxvi-sudddsv completes the activity by him/herself with no assistance from a helper. 5-Set-up or Clean-up Assistance-helper sets up or cleans up; patient completes activity. [place] assists only prior to or following the activity. 4-Supervision or Touching Assistance-helper provides verbal cues and/or touching/steadying and/or contact guard assistance as patient completes activity. Assistance may be provided throughout the activity or intermittently. 3-Partial/Moderate Assistance-helper does LESS THAN HALF the effort. [place] lifts, holds or supports trunk or limbs, but provides less than half the effort. 2-Substantial/Maximal Assistance-helper does MORE THAN HALF the effort. [place] lifts or holds trunk or limbs and provides more than half the effort. 4-Yqixnlqzo-lradsa does ALL the effort. Patient does none of the effort to complete the activity. Or, the assistance of 2 or more helpers is required for the patient to complete the activity. If activity was not attempted, code reason: 7-Patient Refused. 9-Not Applicable-not attempted and the patient did not perform the activity before the current illness, exacerbation or injury. 10-Not Attempted due to Environmental Limitations-(lack of equipment, weather restraints, etc.). 88-Not Attempted due to Medical Conditions or Safety Concerns. sit to stand SBA Weight Bearing Right Lower Extremity: Right Full Weight Bearing Left Lower Extremity: Left Weight Bearing/Tolerated Gait Training Does the Patient Walk?: Yes Gait Assistive Device: FWW gait 80 to 100 ft x 4 with SBA , pt. requesting to sit and rest and c/o increased pain while walking Stair Training pt. had planned to attempt steps but pain as pt. attempted to wt bear on LLE to ascend with RLE caused pt. to abandon trial Exercises Seated Therapy Exercises: Sit to stand, Long arc quads (right only), Hip flexion (right only) Seated Reps: 15 Assessment Current Status: Good Progress pain continues to limit distance. PT Short Term Goals Short Term Goals Time Frame: Sep 04, 2019 Roll Left & Right: 6 Sit to lyin Lying to sitting on side of be: 6 Sit to stand: 5 Chair/wil-yk-nldpr transfer: 5 Walk 10 feet: 5 Walk 50 feet with two turns: 5 Walk 150 feet: 5 PT Mcc Goals Senior Financial Goals PT Senior Financial Goals Time Frame: Sep 18, 2019 Roll Left & Right (QC): 6 Sit to Lying (QC): 6 Lying-Sitting on Side/Bed(QC): 6 Sit to Stand (QC): 6 Chair/Ypm-gp-Cjvfa Xfer(QC): 6 Toilet Transfer (QC): 6 Car Transfer (QC): 6 Does the Patient Walk: Yes Walk 10 feet (QC): 6 Walk 50ft with 2 Turns (QC): 6 Walk 150 ft (QC): 6 Walking 10ft on Uneven Surface: 6 1 Step (curb) (QC): 4 4 Steps (QC): 4 12 Steps (QC): 88 Picking up an Object (QC): 88 Wheel 50 feet with 2 turns (QC: 9 Wheel 150 feet: 9 PT Plan Treatment/Plan Treatment Plan: Continue Plan of Care Treatment Plan: Bed Mobility, Education, Functional Activity [place], Functional Strength, Group Therapy, Gait, Safety, Therapeutic Exercise, Transfers Treatment Duration: Sep 18, 2019 Frequency: At least 5 of 7 days/Wk (IRF) Estimated Hrs Per Day: 1.5 hours per day Patient and/or Family Agrees t: Yes Safety Risks/Education Patient Education: Gait Training, Transfer Techniques, Correct Positioning, Disease Process, Safety Issues Teaching Recipient: Patient Teaching Methods: Demonstration, Discussion Response to Teaching: Verbalize Understanding, Return Demonstration Time/GCodes Time In: 1330 Time Out: 1400 Total Billed Treatment Time: 30 Total Billed Treatment 1,GT30m AARTI SCHULTZ FRUIT HARVESTER Aug 29, 2019 14:18
--- NOTE | 2019-08-29 14:25 | NUR ---
"RD ASSESSMENT PMHx: hypercholesterolemia; HTN; GERD; s/p L TKA PT INTERACTION: Pt was awake and pleasant during nutrition follow-up. Pt states she has been eating a little better since last assessment. Note avg PO intake 75% x1d, per chart review. Pt states no issues with nausea, vomiting, or diarrhea since last assessment. Pt states some issues with constipation. Note last BM was 08/26, and pt currently on bowel regimen of colace BID; senna BID; and miralax BID, per chart review. ABNORMAL NUTRITION-RELATED LAB VALUES LOW: HIGH: AST 61; ALT 66 Est. kcal needs: 1827-1572 kcal | 15-20 kcal/kg Est. Pro needs: 72-90 g Pro | 0.8-1.0 g Pro/kg PES STATEMENT: Given current PO intake, no nutrition diagnosis at this time (NO-1.1) INTERVENTION: Continue with current diet order of Regular diet. Will continue to follow and reassess as pt needs, intake, and status change. MONITOR/EVALUATE: PO Intake; Plan of Care; Hydration Status; Weight Status; Lab Values Asif Cosme, MS, RD, LD"
[2019-08-29] MEDS: CYCLOBENZAPRINE 10 MG (FLEXERIL) TAB PO PRN (16:36)
[2019-08-29] MEDS: ACETAMINOPHEN 325 MG TABLET PO PRN (16:37)
[2019-08-29 17:48] VITALS: BP 123/75
--- NOTE | 2019-08-29 19:06 | NUR ---
bedside report received from STEVE ARGUETA, assume care of pt
[2019-08-29 20:20] VITALS: BP 110/73
--- NOTE | 2019-08-29 20:23 | NUR ---
pt took Colace & 1 Senokot, refused miralax
--- NOTE | 2019-08-29 22:48 | NUR ---
c/o lt knee pain, level 5/10 on numeric scale, oxyir 5mg given
--- NOTE | 2019-08-29 23:30 | NUR ---
resting quietly in bed, pain level 0/10 on CNPI scale
[2019-08-30] MEDS: CYCLOBENZAPRINE 10 MG (FLEXERIL) TAB PO PRN ×2 (02:29→17:13)
--- NOTE | 2019-08-30 02:39 | NUR ---
c/o lt knee pain, level 6/10 on numeric scale, oxyir 5mggiven
--- NOTE | 2019-08-30 03:20 | NUR ---
resting quietly in bed, pain level 0/10 on CNPI SCALE
[2019-08-30 05:25] VITALS: BP 116/67
[2019-08-30] MEDS: MULTIVIT W/MINERALS TAB (THERAGRAN M) PO SCH (06:32)
--- NOTE | 2019-08-30 06:32 | NUR ---
C/O LT KNEE PAIN, LEVEL 5/10 ON NUMERIC SCALE, OXYIR 5MG GIVEN
--- NOTE | 2019-08-30 07:06 | PM&R Progress Note ---
Subjective HPI/CC On Admission Date Seen by Provider: Aug 30, 2019 Time Seen by Provider: 09:30 Subjective/Events-last exam Pain pill is given every four hours Colace given for stool softener Incision looks good Bowels are moving IV iron infusion started for low iron and Hgb of 8.2 Checked meds and labs Conferred with RN Reviewed therapy notes Review of Systems General: Fatigue Musculoskeletal: leg pain Objective Exam Vital Signs Vital Signs Date Time Temp Pulse Resp B/P (MAP) Pulse Ox O2 Delivery O2 Flow Rate FiO2 08/30/19 21:00 98 Room Air 08/30/19 17:29 36.7 98 18 123/72 (89) Capillary Refill : Less Than 3 Seconds General Appearance: No Apparent Distress, WD/WN HEENT: PERRL/EOMI, Normal ENT Inspection, Pharynx Normal Neck: Full Range of Motion, Normal Inspection, Non Tender, Supple, Carotid Bruit Respiratory: Chest Non Tender, Lungs Clear, Normal Breath Sounds, No Accessory Muscle Use, No Respiratory Distress Cardiovascular: Regular Rate, Rhythm, No Edema, No Gallop, No JVD, No Murmur, Normal Peripheral Pulses Gastrointestinal: Normal Bowel Sounds, No Organomegaly, No Pulsatile Mass, Non Tender, Soft Back: Normal Inspection, No CVA Tenderness, No Vertebral Tenderness Extremity: Normal Capillary Refill, Normal Inspection, Normal Range of Motion (left leg in immobilizer), Non Tender, No Calf Tenderness, No Pedal Edema Neurologic/Psychiatric: Alert, Oriented x3, No Motor/Sensory Deficits, Normal 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 FIM Transfers Therapy Code Descriptions/Definitions Functional [place] Measure: 0=Not Assessed/NA 4=Minimal Assistance 1=Total Assistance 5=Supervision or Setup 2=Maximal Assistance 6=Modified [place] 3=Moderate Assistance 7=Complete IndependenceSCALE: Activities may be completed with or without assistive devices. 5-Szngmbiqkx-jlsoaaf completes the activity by him/herself with no assistance from a helper. 5-Set-up or Clean-up Assistance-helper sets up or cleans up; patient completes activity. [place] assists only prior to or following the activity. 4-Supervision or Touching Assistance-helper provides verbal cues and/or touching/steadying and/or contact guard assistance as patient completes activity. Assistance may be provided throughout the activity or intermittently. 3-Partial/Moderate Assistance-helper does LESS THAN HALF the effort. [place] lifts, holds or supports trunk or limbs, but provides less than half the effort. 2-Substantial/Maximal Assistance-helper does MORE THAN HALF the effort. [place] lifts or holds trunk or limbs and provides more than half the effort. 8-Zzoqhunaa-evjfsi does ALL the effort. Patient does none of the effort to complete the activity. Or, the assistance of 2 or more helpers is required for the patient to complete the activity. If activity was not attempted, code reason: 7-Patient Refused. 9-Not Applicable-not attempted and the patient did not perform the activity before the current illness, exacerbation or injury. 10-Not Attempted due to Environmental Limitations-(lack of equipment, weather restraints, etc.). 88-Not Attempted due to Medical Conditions or Safety Concerns. Roll Left to Right (QC): 6 Sit to Lying (QC): 3 Sit to Stand (QC): 4 Chair/Eiq-fs-Fmobn Xfer(QC): 5 Car Transfer (QC): 88 Gait Training Does the Patient Walk?: Yes Distance: 150' x 2 Walk 10 feet (QC): 5 Walk 50 ft with 2 Turns(QC): 5 Walk 150 ft (QC): 5 Walking 10ft/uneven surface-QC: 4 Gait Persons Needed: 1 Gait Assistive Device: FWW Wheelchair Training Does the Pt Use a Wheelchair?: No Wheel 50 ft with 2 turns (QC): 9 Wheel 150 ft (QC): 9 Stair Training 1 Step (curb) (QC): 88 4 Steps (QC): 88 12 Steps (QC): 88 Balance Picking up an Object (QC): 88 ADL-Treatment Eating (QC): 6 Oral Hygiene (QC): 6 Bathing Location: L Arm, R Arm, L Upper Leg, R Upper Leg, R Lower Leg (including foot), Chest, Abdomen, Buttocks, Perineal Area Shower/Bathe Self (QC): 5 Upper Body Dressing (QC): 6 Lower Body Dressing (QC): 4 On/Off Footwear (QC): 3 Toileting Hygiene (QC): 4 (SBA, pt able to manage clothing and hygiene) Assessment/Plan Assessment and Plan Assess & Plan/Chief Complaint Assessment: s/p left total knee replacement Dr Gann s/p revision due to tendon dysfunction HLP Cardiac arrhythmia Smoker Post op anemia Plan: Iron infusion Monitor BP IRF protocol Pain meds BM regimen (1) S/P total knee arthroplasty Status: Acute (2) Cardiac arrhythmia (3) Smoker (4) Quadriceps tendon rupture Status: Acute (5) Osteoarthritis of left knee Status: Acute (6) HLD (hyperlipidemia) Status: Chronic (7) HTN (hypertension) Status: Chronic (8) GERD (gastroesophageal reflux disease) Status: Chronic JUAN JOSE SNYDER DO Aug 30, 2019 07:06
--- NOTE | 2019-08-30 07:18 | NUR ---
RESTING QUIETLY IN BED, PAIN LEVEL 0/10 ON CNPI SCALE
[2019-08-30] MEDS: polyethylene glycoL POWDER 17 GM (MIRALAX) PACK PO SCH ×2 (07:52→21:17)
[2019-08-30] MEDS: ENOXAPARIN 30 MG/0.3 ML (LOVENOX) SYR SC SCH ×2 (07:55→21:14)
[2019-08-30] MEDS: FAMOTIDINE 20 MG (PEPCID) TABLET PO SCH (07:55)
[2019-08-30] MEDS: ASPIRIN E.C. 81 MG (ECOTRIN) TAB PO SCH (07:55)
[2019-08-30] MEDS: meTOprolol TARTRATE 50 MG (LOPRESSOR) TAB PO SCH ×2 (07:55→21:11)
--- NOTE | 2019-08-30 07:57 | Progress Note ---
Standard Progress Note Progress Notes/Assess & Plan Date Seen by a Provider: Aug 30, 2019 Time Seen by a Provider: 07:56 Progress/Assessment & Plan no complaints Vital Signs Date Time Temp Pulse Resp B/P (MAP) Pulse Ox O2 Delivery O2 Flow Rate FiO2 08/29/19 05:31 36.9 90 18 128/72 (90) 98 Room Air 08/28/19 20:18 100 Room Air 08/28/19 20:15 103 18 117/73 (88) 100 Room Air 08/28/19 16:44 36.8 84 18 115/72 (86) 99 Room Air 08/28/19 15:30 Room Air 08/28/19 11:53 35.6 84 16 119/75 98 Room Air I & O 08/29/19 07:00 Intake Total 700 ml Balance 700 ml Laboratory Tests Test 08/29/19 04:42 Range/Units White Blood Count 8.1 4.3-11.0 10^3/uL Red Blood Count 2.78 L 4.35-5.85 10^6/uL Hemoglobin 8.2 L 11.5-16.0 G/DL Hematocrit 26 L 35-52 % Mean Corpuscular Volume 92 80-99 FL Mean Corpuscular Hemoglobin 30 25-34 PG Mean Corpuscular Hemoglobin Concent 32 32-36 G/DL Red Cell Distribution Width 14.7 H 10.0-14.5 % Platelet Count 268 130-400 10^3/uL Mean Platelet Volume 9.1 7.4-10.4 FL Neutrophils (%) (Auto) 59 42-75 % Lymphocytes (%) (Auto) 20 12-44 % Monocytes (%) (Auto) 18 H 0-12 % Eosinophils (%) (Auto) 2 0-10 % Basophils (%) (Auto) 0 0-10 % Neutrophils # (Auto) 4.8 1.8-7.8 X 10^3 Lymphocytes # (Auto) 1.7 1.0-4.0 X 10^3 Monocytes # (Auto) 1.5 H 0.0-1.0 X 10^3 Eosinophils # (Auto) 0.2 0.0-0.3 10^3/uL Basophils # (Auto) 0.0 0.0-0.1 10^3/uL Sodium Level 137 135-145 MMOL/L Potassium Level 4.0 3.6-5.0 MMOL/L Chloride Level 104 98-107 MMOL/L Carbon Dioxide Level 22 21-32 MMOL/L Anion Gap 11 5-14 MMOL/L Blood Urea Nitrogen 11 7-18 MG/DL Creatinine 0.66 0.60-1.30 MG/DL Estimat Glomerular Filtration Rate > 60 BUN/Creatinine Ratio 17 Glucose Level 105 70-105 MG/DL Calcium Level 9.0 8.5-10.1 MG/DL Corrected Calcium 9.5 8.5-10.1 MG/DL Total Bilirubin 0.9 0.1-1.0 MG/DL Aspartate Amino Transf (AST/SGOT) 61 H 5-34 U/L Alanine Aminotransferase (ALT/SGPT) 66 H 0-55 U/L Alkaline Phosphatase 107 40-136 U/L Total Protein 6.5 6.4-8.2 GM/DL Albumin 3.4 3.2-4.5 GM/DL LLE--dressing in place. No calf tenderness. Neg Shawn's s/p LTKA with quad repair PT/OT ok to SLR/ quad sets with brace locked Final Diagnosis no complaints LLE brace in place no calf tenderness continue PT/OT REFUGIO MANZANARES MD Aug 30, 2019 07:57
[2019-08-30] MEDS: DOCUSATE SODIUM 100 MG (COLACE) CAP PO SCH ×2 (07:59→21:14)
[2019-08-30] MEDS: SENNA W/DOCUSATE (SENOKOT S) TABLET PO SCH ×2 (07:59→21:17)
[2019-08-30] MEDS ORDERED: IRON SUCROSE 200 MG/10 ML (VENOFER) VIAL IV SCH (09:00)
[2019-08-30] MEDS: ACETAMINOPHEN 325 MG TABLET PO PRN (09:28)
--- NOTE | 2019-08-30 10:24 | Occupational Ther Daily Note ---
OT Current Status-Daily Note Subjective Pt alert, sitting in recliner. Pt c/o headache, reported to nrsg, nrsg brought Tylenol. Pt agrees to therapy. Pt c/o fatigue. Mental Status/Objective Patient Orientation: Person, Place, Time, Situation Attachments: IV, Other-See Comments (knee immobilizer) ADL-Treatment Pt agrees to shower. Pt able to retrieve clothing using FWW, mod I. Assist to cover L LE knee immobilizer and IV site for shower. Pt completed shower by self using AE for safety. Pt able to don/doff lower body clothing with AE, SBA for safety in standing. Mod I for upper body dressing. Dons/doffs R sock independently, working on using sock aide to don sock and dressing stick to doff, assist to don/doff MICHEAL hose on L LE. Pt requires assist to don/doff immobilizer. Pt standing at sink to complete oral care, mod I. Pt takes increased time to complete ADLs. After session, PT took over care of pt. All needs met in room. Therapy Code Descriptions/Definitions Functional [place] Measure: 0=Not Assessed/NA 4=Minimal Assistance 1=Total Assistance 5=Supervision or Setup 2=Maximal Assistance 6=Modified [place] 3=Moderate Assistance 7=Complete IndependenceSCALE: Activities may be completed with or without assistive devices. 9-Twigwroagr-fjsidoy completes the activity by him/herself with no assistance from a helper. 5-Set-up or Clean-up Assistance-helper sets up or cleans up; patient completes activity. [place] assists only prior to or following the activity. 4-Supervision or Touching Assistance-helper provides verbal cues and/or touch ing/steadying and/or contact guard assistance as patient completes activity. Assistance may be provided throughout the activity or intermittently. 3-Partial/Moderate Assistance-helper does LESS THAN HALF the effort. [place] lifts, holds or supports trunk or limbs, but provides less than half the effort. 2-Substantial/Maximal Assistance-helper does MORE THAN HALF the effort. [place] lifts or holds trunk or limbs and provides more than half the effort. 5-Sjereqgao-uvdutg does ALL the effort. Patient does none of the effort to complete the activity. Or, the assistance of 2 or more helpers is required for the patient to complete the activity. If activity was not attempted, code reason: 7-Patient Refused. 9-Not Applicable-not attempted and the patient did not perform the activity before the current illness, exacerbation or injury. 10-Not Attempted due to Environmental Limitations-(lack of equipment, weather restraints, etc.). 88-Not Attempted due to Medical Conditions or Safety Concerns. Oral Hygiene (QC): 6 Shower/Bathe Self (QC): 6 Upper Body Dressing (QC): 6 Toileting Hygiene (QC): 6 (Completes mod I.) Toilet Transfer (QC): 6 (Completes mod I) OT Short Term Goals Short Term Goals Time Frame: Sep 03, 2019 Putting on/taking off footwear: 3 OT Associate Director Finance Goals [place] Goals Time Frame: Sep 07, 2019 Eating (QC): 6 Oral Hygiene (QC): 6 Toileting Hygiene (QC): 6 Shower/Bathe Self (QC): 6 Upper Body Dressing (QC): 6 Lower Body Dressing (QC): 6 On/Off Footwear (QC): 6 Additional Goals: 1-Demonstrate ADL Tasks, 2-Verbalize Understanding, 3- ImproveStrength/[place] 1=Demonstrate adherence to instructed precautions during ADL tasks. 2=Patient will verbalize/demonstrate understanding of assistive devices/modifications for ADL. 3=Patient will improve strength/tolerance for activity to enable patient to perform ADL's. OT Education/Plan Problem List/Assessment Assessment: Decreased Activ Tolerance, Impaired Self-Care Skills Discharge Recommendations Plan/Recommendations: Continue POC Treatment Plan/Plan of Care Patient would benefit from OT for education, treatment and training to promote independence in ADL's, mobility, safety and/or upper extremity function for ADL's. Plan of Care: ADL Retraining, Functional Mobility, UE Funct Exercise/Act Treatment Duration: Sep 07, 2019 Frequency: At least 5 of 7 days/Wk (IRF) Estimated Hrs Per Day: 1.5 hours per day Rehab Potential: Fair Time/GCodes Start Time: 09:00 Stop Time: 10:10 Total Time Billed (hr/min): 70 Billed Treatment Time 1 visit-ADL 5 (70 min) CARMINE BELTRAN Aug 30, 2019 10:24
--- NOTE | 2019-08-30 11:00 | Physical Therapy Daily Note ---
PT Daily Note-Current Subjective Patient in recliner pre tx, agrees to PT, has 7/10 pain, nurse notified of pain. Appearance Patient in recliner post tx with nurse call, phone, tray, legs elevated, all needs met. Mental Status Patient Orientation: Person, Place, Situation, Normal For Age left leg brace Transfers SCALE: Activities may be completed with or without assistive devices. 2-Zirtajyexk-vdtakaw completes the activity by him/herself with no assistance from a helper. 5-Set-up or Clean-up Assistance-helper sets up or cleans up; patient completes activity. [place] assists only prior to or following the activity. 4-Supervision or Touching Assistance-helper provides verbal cues and/or touching/steadying and/or contact guard assistance as patient completes a ctivity. Assistance may be provided throughout the activity or intermittently. 3-Partial/Moderate Assistance-helper does LESS THAN HALF the effort. [place] lifts, holds or supports trunk or limbs, but provides less than half the effort. 2-Substantial/Maximal Assistance-helper does MORE THAN HALF the effort. [place] lifts or holds trunk or limbs and provides more than half the effort. 1-Khrbvlenm-yvktdv does ALL the effort. Patient does none of the effort to complete the activity. Or, the assistance of 2 or more helpers is required for the patient to complete the activity. If activity was not attempted, code reason: 7-Patient Refused. 9-Not Applicable-not attempted and the patient did not perform the activity before the current illness, exacerbation or injury. 10-Not Attempted due to Environmental Limitations-(lack of equipment, weather restraints, etc.). 88-Not Attempted due to Medical Conditions or Safety Concerns. Roll Left & Right (QC): 6 Sit to Lying (QC): 3 Lying to Sitting/Side of Bed(Q: 6 Sit to Stand (QC): 4 Chair/Eiq-pd-Ojunr Xfer(QC): 4 Weight Bearing Right Lower Extremity: Right Full Weight Bearing Left Lower Extremity: Left Weight Bearing/Tolerated Gait Training Distance: 120', 60'x2 Walk 10 feet (QC): 4 Gait Persons Needed: 1 Gait Assistive Device: FWW SBA, slow but steady ambulation Exercises Supine Ex: Ankle pumps, Quad Set, Hip abd/add Supine Reps: 20 (Stopped at about 10 reps of quad sets due to pain, patient had been instructed to not perform them forcefully.) NuStep Minutes: 15 NuStep Workload: 5 (left leg not used) Treatments bed mobility and transfer training, ambulation, functional strengthening Assessment Current Status: Fair Progress improving general mobility, pain with any quad activation. Doc had given instructions that she can perform QS and SLR but is brace in locked at 0 degrees PT Short Term Goals Short Term Goals Time Frame: Sep 04, 2019 Roll Left & Right: 6 Sit to lyin Lying to sitting on side of be: 6 Sit to stand: 5 Chair/mzr-fg-zxgik transfer: 5 Walk 10 feet: 5 Walk 50 feet with two turns: 5 Walk 150 feet: 5 PT Cinder Dump Crane Operator Goals Cinder Dump Crane Operator Goals PT Cinder Dump Crane Operator Goals Time Frame: Sep 18, 2019 Roll Left & Right (QC): 6 Sit to Lying (QC): 6 Lying-Sitting on Side/Bed(QC): 6 Sit to Stand (QC): 6 Chair/Lyd-un-Hhzie Xfer(QC): 6 Toilet Transfer (QC): 6 Car Transfer (QC): 6 Does the Patient Walk: Yes Walk 10 feet (QC): 6 Walk 50ft with 2 Turns (QC): 6 Walk 150 ft (QC): 6 Walking 10ft on Uneven Surface: 6 1 Step (curb) (QC): 4 4 Steps (QC): 4 12 Steps (QC): 88 Picking up an Object (QC): 88 Wheel 50 feet with 2 turns (QC: 9 Wheel 150 feet: 9 PT Plan Problem List Problem List: Activity Tolerance, Functional Strength, Safety, Balance, Gait, Transfer, Bed Mobility, ROM Treatment/Plan Treatment Plan: Continue Plan of Care Treatment Plan: Bed Mobility, Education, Functional Activity Alexsandra, Functional Strength, Group Therapy, Gait, Safety, Therapeutic Exercise, Transfers Treatment Duration: Sep 18, 2019 Frequency: At least 5 of 7 days/Wk (IRF) Estimated Hrs Per Day: 1.5 hours per day Patient and/or Family Agrees t: Yes Safety Risks/Education Patient Education: Gait Training, Transfer Techniques, Reviewed Precautions, Correct Positioning, Reviewed Don/Doff Brace (adjusted brace), Safety Issues Teaching Recipient: Patient Teaching Methods: Demonstration, Discussion Response to Teaching: Reinforcement Needed Time/GCodes Time In: 1000 Time Out: 1100 Total Billed Treatment Time: 60 Total Billed Treatment 1 visit GT 30' EX 30' VICENTE TORO PT Aug 30, 2019 10:59
--- NOTE | 2019-08-30 13:06 | NUR ---
CM/SS ADMISSION Patient was admitted to ARU from [facility] 08/28/19 for post op total left knee arthroplasty. She was inpatient at [facility] 08/21-08/28/19, having had a quadriceps tendon rupture after the initial knee replacement requiring a second surgical intervention. 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 She resides with two other adult women who are retired and who will be willing/able to provide any assistance needed for her recuperation. Patient plans to return to her employment as soon as released to do so. PCP: Dr. Temo Carcamo, PHARMACY: [facility] INSURED: [facility] DME: Patient has a FWW, she will explore other assistive devices that are being used during her therapy at this time (leg junior financial analyst, shoe horn, dressing stick) OUTPATIENT THERAPY: Patient desires OP PT with [facility]. This was set up when a tentative plan was for her to discharge from acute and prior to her unexpected second surgery. [facility] has confirmed that patient's referral there is on hold and that once notified of patient discharge from ARU, OP PT will set up a new appointment. BARRIERS TO DISCHARGE: No psychosocial barriers noted. CONTACTS: Melba Guidry, sister Scout, [place] [phone] Ramandeep Tejeda, Friend Resides with patient [phone] Patient understands the purpose and process of the weekly patient care conference and that her tentative discharge date is 09/05/19.
--- NOTE | 2019-08-30 13:42 | Occupational Ther Daily Note ---
OT Current Status-Daily Note Subjective Pt alert, sitting in recliner. Pt agrees to therapy. No c/o pain at this time. Mental Status/Objective Patient Orientation: Person, Place, Time, Situation Attachments: IV ADL-Treatment Therapy Code Descriptions/Definitions Functional [place] Measure: 0=Not Assessed/NA 4=Minimal Assistance 1=Total Assistance 5=Supervision or Setup 2=Maximal Assistance 6=Modified [place] 3=Moderate Assistance 7=Complete IndependenceSCALE: Activities may be completed with or without assistive devices. 2-Euzsygczyt-qkdsrmq completes the activity by him/herself with no assistance from a helper. 5-Set-up or Clean-up Assistance-helper sets up or cleans up; patient completes activity. [place] assists only prior to or following the activity. 4-Supervision or Touching Assistance-helper provides verbal cues and/or touching/steadying and/or contact guard assistance as patient completes activity. Assistance may be provided throughout the activity or intermittently. 3-Partial/Moderate Assistance-helper does LESS THAN HALF the effort. [place] lifts, holds or supports trunk or limbs, but provides less than half the effort. 2-Substantial/Maximal Assistance-helper does MORE THAN HALF the effort. [place] lifts or holds trunk or limbs and provides more than half the effort. 6-Oudnlvlej-kvpdgz does ALL the effort. Patient does none of the effort to complete the activity. Or, the assistance of 2 or more helpers is required for the patient to complete the activity. If activity was not attempted, code reason: 7-Patient Refused. 9-Not Applicable-not attempted and the patient did not perform the activity before the current illness, exacerbation or injury. 10-Not Attempted due to Environmental Limitations-(lack of equipment, weather restraints, etc.). 88-Not Attempted due to Medical Conditions or Safety Concerns. Other Treatment Pt educated on medium resistance theraband, given theraband and HEP. Skilled instructions for techniques, modifications and strategies. Pt demonstrated understanding of exercises with min cues for technique. 3 sets 10 exercises. After session, pt sitting in recliner with call light/phone in reach. All needs met in room. OT Short Term Goals Short Term Goals Time Frame: Sep 03, 2019 Putting on/taking off footwear: 3 OT Snf Goals Graduate Student Instructor Goals Time Frame: Sep 07, 2019 Eating (QC): 6 Oral Hygiene (QC): 6 Toileting Hygiene (QC): 6 Shower/Bathe Self (QC): 6 Upper Body Dressing (QC): 6 Lower Body Dressing (QC): 6 On/Off Footwear (QC): 6 Additional Goals: 1-Demonstrate ADL Tasks, 2-Verbalize Understanding, 3- ImproveStrength/Alexsandra 1=Demonstrate adherence to instructed precautions during ADL tasks. 2=Patient will verbalize/demonstrate understanding of assistive devices/modifications for ADL. 3=Patient will improve strength/tolerance for activity to enable patient to perform ADL's. OT Education/Plan Problem List/Assessment Assessment: Decreased Activ Tolerance, Decreased UE Strength, Impaired Self- Care Skills Discharge Recommendations Plan/Recommendations: Continue POC Treatment Plan/Plan of Care Patient would benefit from OT for education, treatment and training to promote independence in ADL's, mobility, safety and/or upper extremity function for ADL's. Plan of Care: ADL Retraining, Functional Mobility, UE Funct Exercise/Act Treatment Duration: Sep 07, 2019 Frequency: At least 5 of 7 days/Wk (IRF) Estimated Hrs Per Day: 1.5 hours per day Rehab Potential: Fair Time/GCodes Start Time: 13:00 Stop Time: 13:30 Total Time Billed (hr/min): 30 Billed Treatment Time 1 visit-EX 2 (30 min) CARMINE BELTRAN Aug 30, 2019 13:42
--- NOTE | 2019-08-30 13:52 | Physical Therapy Daily Note ---
PT Daily Note-Current Subjective Patient in recliner pre tx, agrees to PT, has unrated pain in right leg. Appearance Patient in recliner post tx with nurse call, phone, tray, all needs met. Mental Status Patient Orientation: Normal For Age leg brace Transfers SCALE: Activities may be completed with or without assistive devices. 3-Zxrkvxxnyl-zftmpfi completes the activity by him/herself with no assistance from a helper. 5-Set-up or Clean-up Assistance-helper sets up or cleans up; patient completes activity. [place] assists only prior to or following the activity. 4-Supervision or Touching Assistance-helper provides verbal cues and/or touching/steadying and/or contact guard assistance as patient completes activity. Assistance may be provided throughout the activity or intermittently. 3-Partial/Moderate Assistance-helper does LESS THAN HALF the effort. [place] lifts, holds or supports trunk or limbs, but provides less than half the effort. 2-Substantial/Maximal Assistance-helper does MORE THAN HALF the effort. [place] lifts or holds trunk or limbs and provides more than half the effort. 4-Pbvqwwyvt-isxvmf does ALL the effort. Patient does none of the effort to complete the activity. Or, the assistance of 2 or more helpers is required for the patient to complete the activity. If activity was not attempted, code reason: 7-Patient Refused. 9-Not Applicable-not attempted and the patient did not perform the activity before the current illness, exacerbation or injury. 10-Not Attempted due to Environmental Limitations-(lack of equipment, weather restraints, etc.). 88-Not Attempted due to Medical Conditions or Safety Concerns. Sit to Stand (QC): 4 Chair/Tfz-no-Qyevh Xfer(QC): 4 SBA Weight Bearing Right Lower Extremity: Right Full Weight Bearing Left Lower Extremity: Left Weight Bearing/Tolerated Gait Training Distance: 120'x2 Walk 10 feet (QC): 4 Walk 50 ft with 2 Turns(QC): 4 Gait Persons Needed: 1 Gait Assistive Device: FWW antalgic, slow, but steady ambulation, fatigues quickly, needs rest break Treatments ambulation Assessment Current Status: Fair Progress improving ambulation PT Short Term Goals Short Term Goals Time Frame: Sep 04, 2019 Roll Left & Right: 6 Sit to lyin Lying to sitting on side of be: 6 Sit to stand: 5 Chair/lkc-at-nweqb transfer: 5 Walk 10 feet: 5 Walk 50 feet with two turns: 5 Walk 150 feet: 5 PT Shelter Goals Electrician Aircraft Goals PT Shelter Goals Time Frame: Sep 18, 2019 Roll Left & Right (QC): 6 Sit to Lying (QC): 6 Lying-Sitting on Side/Bed(QC): 6 Sit to Stand (QC): 6 Chair/Uwo-hq-[place] Xfer(QC): 6 Toilet Transfer (QC): 6 Car Transfer (QC): 6 Does the Patient Walk: Yes Walk 10 feet (QC): 6 Walk 50ft with 2 Turns (QC): 6 Walk 150 ft (QC): 6 Walking 10ft on Uneven Surface: 6 1 Step (curb) (QC): 4 4 Steps (QC): 4 12 Steps (QC): 88 Picking up an Object (QC): 88 Wheel 50 feet with 2 turns (QC: 9 Wheel 150 feet: 9 PT Plan Problem List Problem List: Activity Tolerance, Functional Strength, Safety, Balance, Gait, Transfer, Bed Mobility, ROM Treatment/Plan Treatment Plan: Continue Plan of Care Treatment Plan: Bed Mobility, Education, Functional Activity Alexsandra, Functional Strength, Group Therapy, Gait, Safety, Therapeutic Exercise, Transfers Treatment Duration: Sep 18, 2019 Frequency: At least 5 of 7 days/Wk (IRF) Estimated Hrs Per Day: 1.5 hours per day Patient and/or Family Agrees t: Yes Safety Risks/Education Patient Education: Gait Training, Transfer Techniques, Correct Positioning, Safety Issues Teaching Recipient: Patient Teaching Methods: Demonstration, Discussion Response to Teaching: Reinforcement Needed Time/GCodes Time In: 1330 Time Out: 1400 Total Billed Treatment Time: 30 Total Billed Treatment 1 visit GT 30' VICENTE TORO PT Aug 30, 2019 13:52
--- NOTE | 2019-08-30 14:06 | NUR ---
Pt is Jehovah'S Witness and expresses no specific spiritual needs at this time.
[2019-08-30 17:29] VITALS: BP 123/72
[2019-08-31] MEDS: MULTIVIT W/MINERALS TAB (THERAGRAN M) PO SCH (05:28)
[2019-08-31 06:00] VITALS: BP 110/68
--- NOTE | 2019-08-31 06:43 | PM&R Progress Note ---
Subjective HPI/CC On Admission Date Seen by Provider: Aug 31, 2019 Time Seen by Provider: 10:00 Subjective/Events-last exam Pain pill is given every four hours scheduled Colace given for stool softener and that works pretty well Incision looks good Bowels are moving after narcotic bowel resolved a few days ago Having urinary frequency so if this continues after she drinks more will do in/out cath for UA IV iron infusion started for low iron and Hgb of 8.2 Checked meds and labs Conferred with RN Reviewed therapy notes Review of Systems General: Fatigue Genitourinary: Frequency Musculoskeletal: leg pain Objective Exam Vital Signs Vital Signs Date Time Temp Pulse Resp B/P (MAP) Pulse Ox O2 Delivery O2 Flow Rate FiO2 08/31/19 06:00 36.2 76 18 110/68 (82) 96 Room Air Capillary Refill : Less Than 3 Seconds General Appearance: No Apparent Distress, WD/WN HEENT: PERRL/EOMI, Normal ENT Inspection, Pharynx Normal Neck: Full Range of Motion, Normal Inspection, Non Tender, Supple, Carotid Bruit Respiratory: Chest Non Tender, Lungs Clear, Normal Breath Sounds, No Accessory Muscle Use, No Respiratory Distress Cardiovascular: Regular Rate, Rhythm, No Edema, No Gallop, No JVD, No Murmur, Normal Peripheral Pulses Gastrointestinal: Normal Bowel Sounds, No Organomegaly, No Pulsatile Mass, Non Tender, Soft Back: Normal Inspection, No CVA Tenderness, No Vertebral Tenderness Extremity: Normal Capillary Refill, Normal Inspection, Normal Range of Motion (left leg in immobilizer), Non Tender, No Calf Tenderness, No Pedal Edema Neurologic/Psychiatric: Alert, Oriented x3, No Motor/Sensory Deficits, Normal Mood/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 FIM Transfers Therapy Code Descriptions/Definitions Functional [place] Measure: 0=Not Assessed/NA 4=Minimal Assistance 1=Total Assistance 5=Supervision or Setup 2=Maximal Assistance 6=Modified [place] 3=Moderate Assistance 7=Complete IndependenceSCALE: Activities may be completed with or without assistive devices. 6-Uotiuzugcr-auvqfxt completes the activity by him/herself with no assistance from a helper. 5-Set-up or Clean-up Assistance-helper sets up or cleans up; patient completes activity. [place] assists only prior to or following the activity. 4-Supervision or Touching Assistance-helper provides verbal cues and/or touching/steadying and/or contact guard assistance as patient completes activity. Assistance may be provided throughout the activity or intermittently. 3-Partial/Moderate Assistance-helper does LESS THAN HALF the effort. [place] lifts, holds or supports trunk or limbs, but provides less than half the effort. 2-Substantial/Maximal Assistance-helper does MORE THAN HALF the effort. [place] lifts or holds trunk or limbs and provides more than half the effort. 3-Jciszdeid-vjdjcw does ALL the effort. Patient does none of the effort to complete the activity. Or, the assistance of 2 or more helpers is required for the patient to complete the activity. If activity was not attempted, code reason: 7-Patient Refused. 9-Not Applicable-not attempted and the patient did not perform the activity before the current illness, exacerbation or injury. 10-Not Attempted due to Environmental Limitations-(lack of equipment, weather restraints, etc.). 88-Not Attempted due to Medical Conditions or Safety Concerns. Roll Left to Right (QC): 6 Sit to Lying (QC): 3 Sit to Stand (QC): 4 Chair/Nan-gn-Tgwxl Xfer(QC): 4 Car Transfer (QC): 88 Gait Training Does the Patient Walk?: Yes Distance: 120'x2 Walk 10 feet (QC): 4 Walk 50 ft with 2 Turns(QC): 4 Walk 150 ft (QC): 5 Walking 10ft/uneven surface-QC: 4 Gait Persons Needed: 1 Gait Assistive Device: FWW Wheelchair Training Does the Pt Use a Wheelchair?: No Wheel 50 ft with 2 turns (QC): 9 Wheel 150 ft (QC): 9 Stair Training 1 Step (curb) (QC): 88 4 Steps (QC): 88 12 Steps (QC): 88 Balance Picking up an Object (QC): 88 ADL-Treatment Eating (QC): 6 Oral Hygiene (QC): 6 Bathing Location: L Arm, R Arm, L Upper Leg, R Upper Leg, R Lower Leg (including foot), Chest, Abdomen, Buttocks, Perineal Area Shower/Bathe Self (QC): 6 Upper Body Dressing (QC): 6 Lower Body Dressing (QC): 4 On/Off Footwear (QC): 3 Toileting Hygiene (QC): 6 (Completes mod I.) Toilet Transfer (QC): 6 (Completes mod I) Assessment/Plan Assessment and Plan Assess & Plan/Chief Complaint Assessment: s/p left total knee replacement Dr Gann s/p revision due to tendon dysfunction HLP Cardiac arrhythmia Smoker Post op anemia Dysuria Plan: Iron infusion Monitor BP IRF protocol Pain meds BM regimen Check UA if dysuria continues (1) S/P total knee arthroplasty Status: Acute (2) Cardiac arrhythmia (3) Smoker (4) Quadriceps tendon rupture Status: Acute (5) Osteoarthritis of left knee Status: Acute (6) HLD (hyperlipidemia) Status: Chronic (7) HTN (hypertension) Status: Chronic (8) GERD (gastroesophageal reflux disease) Status: Chronic JUAN JOSE SNYDER DO Aug 31, 2019 06:43
--- NOTE | 2019-08-31 06:55 | Progress Note ---
Standard Progress Note Progress Notes/Assess & Plan Date Seen by a Provider: Aug 31, 2019 Time Seen by a Provider: 06:53 Progress/Assessment & Plan no complaints Vital Signs Date Time Temp Pulse Resp B/P (MAP) Pulse Ox O2 Delivery O2 Flow Rate FiO2 08/29/19 05:31 36.9 90 18 128/72 (90) 98 Room Air 08/28/19 20:18 100 Room Air 08/28/19 20:15 103 18 117/73 (88) 100 Room Air 08/28/19 16:44 36.8 84 18 115/72 (86) 99 Room Air 08/28/19 15:30 Room Air 08/28/19 11:53 35.6 84 16 119/75 98 Room Air I & O 08/29/19 07:00 Intake Total 700 ml Balance 700 ml Laboratory Tests Test 08/29/19 04:42 Range/Units White Blood Count 8.1 4.3-11.0 10^3/uL Red Blood Count 2.78 L 4.35-5.85 10^6/uL Hemoglobin 8.2 L 11.5-16.0 G/DL Hematocrit 26 L 35-52 % Mean Corpuscular Volume 92 80-99 FL Mean Corpuscular Hemoglobin 30 25-34 PG Mean Corpuscular Hemoglobin Concent 32 32-36 G/DL Red Cell Distribution Width 14.7 H 10.0-14.5 % Platelet Count 268 130-400 10^3/uL Mean Platelet Volume 9.1 7.4-10.4 FL Neutrophils (%) (Auto) 59 42-75 % Lymphocytes (%) (Auto) 20 12-44 % Monocytes (%) (Auto) 18 H 0-12 % Eosinophils (%) (Auto) 2 0-10 % Basophils (%) (Auto) 0 0-10 % Neutrophils # (Auto) 4.8 1.8-7.8 X 10^3 Lymphocytes # (Auto) 1.7 1.0-4.0 X 10^3 Monocytes # (Auto) 1.5 H 0.0-1.0 X 10^3 Eosinophils # (Auto) 0.2 0.0-0.3 10^3/uL Basophils # (Auto) 0.0 0.0-0.1 10^3/uL Sodium Level 137 135-145 MMOL/L Potassium Level 4.0 3.6-5.0 MMOL/L Chloride Level 104 98-107 MMOL/L Carbon Dioxide Level 22 21-32 MMOL/L Anion Gap 11 5-14 MMOL/L Blood Urea Nitrogen 11 7-18 MG/DL Creatinine 0.66 0.60-1.30 MG/DL Estimat Glomerular Filtration Rate > 60 BUN/Creatinine Ratio 17 Glucose Level 105 70-105 MG/DL Calcium Level 9.0 8.5-10.1 MG/DL Corrected Calcium 9.5 8.5-10.1 MG/DL Total Bilirubin 0.9 0.1-1.0 MG/DL Aspartate Amino Transf (AST/SGOT) 61 H 5-34 U/L Alanine Aminotransferase (ALT/SGPT) 66 H 0-55 U/L Alkaline Phosphatase 107 40-136 U/L Total Protein 6.5 6.4-8.2 GM/DL Albumin 3.4 3.2-4.5 GM/DL LLE--dressing in place. No calf tenderness. Neg Shawn's s/p LTKA with quad repair PT/OT ok to SLR/ quad sets with brace locked Final Diagnosis feelling better LLE--incision clean and dry. No quad defect noted. Poor quad activation. Neg Shawn's s/p LTKA with quad repair continue PT/OT had lengthy discussion re expected outcomes REFUGIO MANZANARES MD Aug 31, 2019 06:55
[2019-08-31 08:00] VITALS: BP 124/78
[2019-08-31] MEDS: ASPIRIN E.C. 81 MG (ECOTRIN) TAB PO SCH (08:45)
[2019-08-31] MEDS: SENNA W/DOCUSATE (SENOKOT S) TABLET PO SCH (08:45)
[2019-08-31] MEDS: DOCUSATE SODIUM 100 MG (COLACE) CAP PO SCH (08:45)
[2019-08-31] MEDS: FAMOTIDINE 20 MG (PEPCID) TABLET PO SCH (08:45)
[2019-08-31] MEDS: meTOprolol TARTRATE 50 MG (LOPRESSOR) TAB PO SCH ×2 (08:45→21:13)
[2019-08-31] MEDS: ENOXAPARIN 30 MG/0.3 ML (LOVENOX) SYR SC SCH ×2 (08:47→21:11)
[2019-08-31] MEDS: polyethylene glycoL POWDER 17 GM (MIRALAX) PACK PO SCH (08:47)
--- NOTE | 2019-08-31 09:00 | NUR ---
DR. SNYDER INFORMED OF PATIENT'S COMPLAINT OF DARK YELLOW AND STRONG SMELLING URINE. STATES TO INCREASE FLUIDS. TEDS CHANGED TO KNEE HIGH SINCE PATIENT COMPLAIN OF ELASTIC HURTING LEFT THIGH. TACHY PRIOR TO BEING MEDICATED WITH METOPROLOL.
--- NOTE | 2019-08-31 11:18 | Physical Therapy Daily Note ---
PT Daily Note-Current Subjective Patient in recliner pre tx, agrees to PT, has 6/10 pain in left leg. Appearance Patient in recliner post tx with nurse call, phone, tray, all needs met. Mental Status Patient Orientation: Normal For Age left leg brace Transfers SCALE: Activities may be completed with or without assistive devices. 5-Yfxclbqxyp-taraoin completes the activity by him/herself with no assistance from a helper. 5-Set-up or Clean-up Assistance-helper sets up or cleans up; patient completes activity. [place] assists only prior to or following the activity. 4-Supervision or Touching Assistance-helper provides verbal cues and/or touching/steadying and/or contact guard assistance as patient completes activity. Assistance may be provided throughout the activity or intermittently. 3-Partial/Moderate Assistance-helper does LESS THAN HALF the effort. [place] lifts, holds or supports trunk or limbs, but provides less than half the effort. 2-Substantial/Maximal Assistance-helper does MORE THAN HALF the effort. [place] lifts or holds trunk or limbs and provides more than half the effort. 9-Ddvsbthcj-kxeoug does ALL the effort. Patient does none of the effort to complete the activity. Or, the assistance of 2 or more helpers is required for the patient to complete the activity. If activity was not attempted, code reason: 7-Patient Refused. 9-Not Applicable-not attempted and the patient did not perform the activity before the current illness, exacerbation or injury. 10-Not Attempted due to Environmental Limitations-(lack of equipment, weather restraints, etc.). 88-Not Attempted due to Medical Conditions or Safety Concerns. Sit to Stand (QC): 4 Chair/Lkz-gu-Nplho Xfer(QC): 4 SBA Weight Bearing Right Lower Extremity: Right Full Weight Bearing Left Lower Extremity: Left Weight Bearing/Tolerated Gait Training Distance: 120'x2 Walk 10 feet (QC): 4 Walk 50 ft with 2 Turns(QC): 4 Gait Persons Needed: 1 Gait Assistive Device: FWW SBA, slow but steady ambulation, less weight bearing on left leg. Exercises Standing: Heel/toe raises, 3 way Ex=Flex, Abd, Ext (only performed with left leg) Standing Reps: 15 Patient could not handle standing on left leg to perform exercises with right leg. LAQ right side with 2# ankle weight for 5 min NuStep Minutes: 15 NuStep Workload: 4 (left leg not used) Treatments transfers, ambulation, functional strengthening Assessment Current Status: Fair Progress Patient has unexpected pain in left leg with weight bearing and QS in the past , plan to contact surgeon to consult with him. PT Short Term Goals Short Term Goals Time Frame: Sep 04, 2019 Roll Left & Right: 6 Sit to lyin Lying to sitting on side of be: 6 Sit to stand: 5 Chair/jlk-zy-teozo transfer: 5 Walk 10 feet: 5 Walk 50 feet with two turns: 5 Walk 150 feet: 5 PT Correction Goals Travel Clerk Goals PT Correction Goals Time Frame: Sep 18, 2019 Roll Left & Right (QC): 6 Sit to Lying (QC): 6 Lying-Sitting on Side/Bed(QC): 6 Sit to Stand (QC): 6 Chair/Epd-zv-Zasvr Xfer(QC): 6 Toilet Transfer (QC): 6 Car Transfer (QC): 6 Does the Patient Walk: Yes Walk 10 feet (QC): 6 Walk 50ft with 2 Turns (QC): 6 Walk 150 ft (QC): 6 Walking 10ft on Uneven Surface: 6 1 Step (curb) (QC): 4 4 Steps (QC): 4 12 Steps (QC): 88 Picking up an Object (QC): 88 Wheel 50 feet with 2 turns (QC: 9 Wheel 150 feet: 9 PT Plan Problem List Problem List: Activity Tolerance, Functional Strength, Safety, Balance, Gait, Transfer, Bed Mobility, ROM Treatment/Plan Treatment Plan: Continue Plan of Care Treatment Plan: Bed Mobility, Education, Functional Activity Alexsandra, Functional Strength, Group Therapy, Gait, Safety, Therapeutic Exercise, Transfers Treatment Duration: Sep 18, 2019 Frequency: At least 5 of 7 days/Wk (IRF) Estimated Hrs Per Day: 1.5 hours per day Patient and/or Family Agrees t: Yes Safety Risks/Education Patient Education: Gait Training, Transfer Techniques, Correct Positioning, Safety Issues Teaching Recipient: Patient Teaching Methods: Demonstration, Discussion Response to Teaching: Reinforcement Needed Time/GCodes Time In: 1000 Time Out: 1100 Total Billed Treatment Time: 60 Total Billed Treatment 1 visit GT 30' EX 30' VICENTE TORO PT Aug 31, 2019 11:18
--- NOTE | 2019-08-31 13:25 | Occupational Ther Daily Note ---
OT Current Status-Daily Note Subjective Pt seen 2x's today ([id number]). Pt agrees to therapy. Pt requested pain pill at AM session, nrsg brought meds. Pt stated that she just felt a bit of pain in pm session. Mental Status/Objective Patient Orientation: Person, Place, Time, Situation Attachments: IV ADL-Treatment [id number]: Pt agrees to shower. Pt ambulated using FWW to bathroom and transferred to toilet, mod I. Completed toilet hygiene/clothing manipulation, mod I. Transferred into shower mod I. Assist to cover IV site and knee immobilizer. Pt completed shower using shower seat, grabbars, hand held shower and long handle sponge, mod I. Pt ambulated back to room and sat in recliner. Pt took increased time to complete ADLs. Pt able to stand at sink to complete grooming, completed oral care earlier in day. After session, pt sitting in recliner with call light/phone in reach. All needs met in room. [id number]: Upper body dressing, mod I. Lower body dressing, SBA in standing while hiking pants over hips and assist to don/doff knee immobilizer. Min A for footwear due to knee precautions on L LE and wearing knee immobilizer. After session, pt sitting in recliner with call light/phone in reach. All needs met in room. Therapy Code Descriptions/Definitions Functional [place] Measure: 0=Not Assessed/NA 4=Minimal Assistance 1=Total Assistance 5=Supervision or Setup 2=Maximal Assistance 6=Modified [place] 3=Moderate Assistance 7=Complete IndependenceSCALE: Activities may be completed with or without assistive devices. 3-Rqjfemwpuq-orlgymc completes the activity by him/herself with no assistance from a helper. 5-Set-up or Clean-up Assistance-helper sets up or cleans up; patient completes activity. [place] assists only prior to or following the activity. 4-Supervision or Touching Assistance-helper provides verbal cues and/or touching/steadying and/or contact guard assistance as patient completes acti vity. Assistance may be provided throughout the activity or intermittently. 3-Partial/Moderate Assistance-helper does LESS THAN HALF the effort. [place] lifts, holds or supports trunk or limbs, but provides less than half the effort. 2-Substantial/Maximal Assistance-helper does MORE THAN HALF the effort. [place] lifts or holds trunk or limbs and provides more than half the effort. 1-Cglmzxloz-fyegrm does ALL the effort. Patient does none of the effort to complete the activity. Or, the assistance of 2 or more helpers is required for the patient to complete the activity. If activity was not attempted, code reason: 7-Patient Refused. 9-Not Applicable-not attempted and the patient did not perform the activity before the current illness, exacerbation or injury. 10-Not Attempted due to Environmental Limitations-(lack of equipment, weather restraints, etc.). 88-Not Attempted due to Medical Conditions or Safety Concerns. Shower/Bathe Self (QC): 6 Upper Body Dressing (QC): 6 Lower Body Dressing (QC): 3 On/Off Footwear: 3 Toileting Hygiene (QC): 6 Toilet Transfer (QC): 6 OT Short Term Goals Short Term Goals Time Frame: Sep 03, 2019 Putting on/taking off footwear: 3 OT Head Orthopedic Team Physician Goals Snf Goals Time Frame: Sep 07, 2019 Eating (QC): 6 Oral Hygiene (QC): 6 Toileting Hygiene (QC): 6 Shower/Bathe Self (QC): 6 Upper Body Dressing (QC): 6 Lower Body Dressing (QC): 6 On/Off Footwear (QC): 6 Additional Goals: 1-Demonstrate ADL Tasks, 2-Verbalize Understanding, 3-ImproveStrength/Alexsandra 1=Demonstrate adherence to instructed precautions during ADL tasks. 2=Patient will verbalize/demonstrate understanding of assistive devices/modifications for ADL. 3=Patient will improve strength/tolerance for activity to enable patient to perform ADL's. OT Education/Plan Problem List/Assessment Assessment: Decreased Activ Tolerance, Impaired Self-Care Skills Discharge Recommendations Plan/Recommendations: Continue POC Treatment Plan/Plan of Care Patient would benefit from OT for education, treatment and training to promote i ndependence in ADL's, mobility, safety and/or upper extremity function for ADL's. Plan of Care: ADL Retraining, Functional Mobility, UE Funct Exercise/Act Treatment Duration: Sep 07, 2019 Frequency: At least 5 of 7 days/Wk (IRF) Estimated Hrs Per Day: 1.5 hours per day Rehab Potential: Fair Time/GCodes Start Time: 11:00 ([id number]) Stop Time: 13:15 ([id number]) Total Time Billed (hr/min): 100 Billed Treatment Time 2 visits-ADL 7 (100 min) CARMINE BELTRAN Aug 31, 2019 13:24
--- NOTE | 2019-08-31 15:41 | NUR ---
CM/SS CONCURRENT DOCUMENTATION Call from patient [facility] insurance [employer]/Anibal ([phone]) regarding post hospital needs. Informed her that patient had FWW and plan for OP PT. Anibal will call patient at home after discharge to support as needed.
--- NOTE | 2019-08-31 15:50 | Physical Therapy Daily Note ---
PT Daily Note-Current Subjective Pt. states she researched her predicament ie quadriceps rupture after TKR and states she knows she is vulnerable for more "trouble" and is trying to do all she can to improve. Pt. rates pain at 9/10 as Rx begins. Nursing is called and meds dispensed. Pain Numeric Pain Scale: 9 Location: Left Location Body Site: Knee Pain Description: Squeezing Mental Status Patient Orientation: Normal For Age Attachments: Other-See Comments (knee immoblizer) Transfers SCALE: Activities may be completed with or without assistive devices. 7-Aieqdqfcwp-qpbmiqn completes the activity by him/herself with no assistance from a helper. 5-Set-up or Clean-up Assistance-helper sets up or cleans up; patient completes activity. [place] assists only prior to or following the activity. 4-Supervision or Touching Assistance-helper provides verbal cues and/or touching/steadying and/or contact guard assistance as patient completes activity. Assistance may be provided throughout the activity or intermittently. 3-Partial/Moderate Assistance-helper does LESS THAN HALF the effort. [place] lifts, holds or supports trunk or limbs, but provides less than half the effort. 2-Substantial/Maximal Assistance-helper does MORE THAN HALF the effort. [place] lifts or holds trunk or limbs and provides more than half the effort. 6-Ekbicxuli-ojbezr does ALL the effort. Patient does none of the effort to co mplete the activity. Or, the assistance of 2 or more helpers is required for the patient to complete the activity. If activity was not attempted, code reason: 7-Patient Refused. 9-Not Applicable-not attempted and the patient did not perform the activity before the current illness, exacerbation or injury. 10-Not Attempted due to Environmental Limitations-(lack of equipment, weather restraints, etc.). 88-Not Attempted due to Medical Conditions or Safety Concerns. in out chair, on off Rx table all SBA Weight Bearing Right Lower Extremity: Right Full Weight Bearing Left Lower Extremity: Left Weight Bearing/Tolerated Gait Training Does the Patient Walk?: Yes Gait Assistive Device: FWW [id number], pt. required rest breaks secondary to pain. heavy weight bearing on FW W, improved step length , more even Exercises Supine Ex: Ankle pumps, Quad Set, Glut sets, Heel Slides (right only), Short Arc Quads (right only), Straight leg raise (right only), Hip abd/add (right only) Supine Reps: 15 Seated Therapy Exercises: Ankle pumps Seated Reps: 20 pts pain level such that isometrics only were done on L Treatments experimented with elevation with wedge and pillow in supine on mat with pt. still having high pain. 8/10 at end of Rx with pt.in recliner with LEs elevated Assessment Current Status: Good Progress safe gait, good understanding of expectations PT Short Term Goals Short Term Goals Time Frame: Sep 04, 2019 Roll Left & Right: 6 Sit to lyin Lying to sitting on side of be: 6 Sit to stand: 5 Chair/nht-xo-wjwlz transfer: 5 Walk 10 feet: 5 Walk 50 feet with two turns: 5 Walk 150 feet: 5 PT Mcfp Goals Active Directory Systems Administrator Goals PT Mcfp Goals Time Frame: Sep 18, 2019 Roll Left & Right (QC): 6 Sit to Lying (QC): 6 Lying-Sitting on Side/Bed(QC): 6 Sit to Stand (QC): 6 Chair/Qhq-yw-Nbzqc Xfer(QC): 6 Toilet Transfer (QC): 6 Car Transfer (QC): 6 Does the Patient Walk: Yes Walk 10 feet (QC): 6 Walk 50ft with 2 Turns (QC): 6 Walk 150 ft (QC): 6 Walking 10ft on Uneven Surface: 6 1 Step (curb) (QC): 4 4 Steps (QC): 4 12 Steps (QC): 88 Picking up an Object (QC): 88 Wheel 50 feet with 2 turns (QC: 9 Wheel 150 feet: 9 PT Plan Treatment/Plan Treatment Plan: Continue Plan of Care Treatment Plan: Bed Mobility, Education, Functional Activity Alexsandra, Functional Strength, Group Therapy, Gait, Safety, Therapeutic Exercise, Transfers Treatment Duration: Sep 18, 2019 Frequency: At least 5 of 7 days/Wk (IRF) Estimated Hrs Per Day: 1.5 hours per day Patient and/or Family Agrees t: Yes Safety Risks/Education Patient Education: Gait Training, Transfer Techniques, Correct Positioning, Disease Process, Safety Issues Teaching Methods: Discussion Response to Teaching: Verbalize Understanding, Return Demonstration Time/GCodes Time In: 1505 Time Out: 1545 Total Billed Treatment Time: 40 Total Billed Treatment 1,FA15m,GT15m,EX15m AARTI SCHULTZ SHOW OPERATIONS SUPERVISOR Aug 31, 2019 15:50
[2019-08-31 16:43] VITALS: BP 114/71
--- NOTE | 2019-08-31 18:15 | NUR ---
DR. SNYDER NOTIFIED OF 101.2 TEMP, HR 124. PATIENT HAS BEEN DRINKING CRANBERRY JUICE AND GOOD ORAL INTAKE, BUT STILL HAVING SOME URINARY BURNING. LABS AND UA ORDERED. STRAIGHT CATH DONE. DID HAVE SOME WHITE MUCOUS AT VAGINAL AREA.
[2019-08-31 18:54] LABS: HEMOGLOBIN 8.3 G/DL (11.5-16.0); MEAN PLATELET VOLUME 8.5 FL (7.4-10.4); RED CELL DISTRIBUTION WIDTH 15.5 % (10.0-14.5); WHITE BLOOD COUNT 12.6 10^3/uL (4.3-11.0)
--- NOTE | 2019-08-31 19:00 | NUR ---
LABS DRAWN. TEMP NOW 100.6. MEDICATED WITH TYLENOL.
[2019-08-31 19:07] LABS: BILIRUBIN,URINE NEGATIVE (NEGATIVE); CLARITY,URINE CLEAR; COLOR,URINE YELLOW; GLUCOSE, URINE (UA) NEGATIVE (NEGATIVE); KETONES,URINE NEGATIVE (NEGATIVE); LEUKOCYTE ESTERASE ,URINE NEGATIVE (NEGATIVE); NITRITE,URINE NEGATIVE (NEGATIVE); PROTEIN,URINE NEGATIVE (NEGATIVE)
[2019-08-31 19:07] LABS: ALBUMIN 3.5 GM/DL (3.2-4.5); CHLORIDE 99 MMOL/L (98-107); SODIUM 133 MMOL/L (135-145)
[2019-08-31 19:08] LABS: CALCIUM 9.5 MG/DL (8.5-10.1)
[2019-08-31 19:10] LABS: GLUCOSE 155 MG/DL (70-105); TOTAL PROTEIN 6.5 GM/DL (6.4-8.2)
[2019-08-31 19:11] LABS: BILIRUBIN,TOTAL 0.9 MG/DL (0.1-1.0); CARBON DIOXIDE 23 MMOL/L (21-32)
[2019-08-31] MEDS: ACETAMINOPHEN 325 MG TABLET PO PRN (19:11)
[2019-08-31 19:13] LABS: ALKALINE PHOSPHATASE 97 U/L (40-136); CREATININE SERUM 0.77 MG/DL (0.60-1.30); GFR ESTIMATED > 60
[2019-08-31 19:14] LABS: BUN/CREATININE RATIO 16
[2019-08-31 19:16] LABS: ALANINE AMINOTRANSFERASE 46 U/L (0-55)
[2019-08-31 19:18] LABS: BACTERIA,URINE TRACE /HPF; SQUAMOUS EPITHELIAL CELL,UR RARE /HPF
--- NOTE | 2019-08-31 19:35 | NUR ---
pt resting in chair with eyes closed , no c/o awakens easily
--- NOTE | 2019-08-31 20:00 | NUR ---
pt cont. to rest with eyes closed et awakens easily, pt listening to television reclined in chair, resp reg et easy , pt has leonarda legs elevated et brace on et in place to lt leg. no c/o
--- NOTE | 2019-08-31 20:13 | Diagnostic Imaging Report ---
INDICATION: Recent total knee replacement. Fever. Upright chest shows normal heart size and vascularity. The lungs are clear. There is no effusion or pneumothorax. There is no bony abnormality. IMPRESSION: Normal chest with no change from 08/15/2019. Dictated by: Dictated on workstation # [id number]
[2019-08-31] MEDS ORDERED: NS IV 1000 ML 1,000 ML IV SCH (20:45)
[2019-08-31 21:00] VITALS: BP 174/87
--- NOTE | 2019-08-31 21:00 | NUR ---
pt c/o chills. pt noted shaking et requesting warm blanket , skin w/d color very pale. pt noted tachycardic heart rate 165 . pt alert et oriented
--- NOTE | 2019-08-31 21:20 | NUR ---
ekg obtained et dr perkins notified by switch house operator umesh of pt changes, new orders received
--- NOTE | 2019-08-31 21:30 | NUR ---
pt transferred to icu 7 per bed et report given to david sommer rn
[2019-08-31] MEDS ORDERED: ENOXAPARIN 60 MG/0.6 ML (LOVENOX) SYR SC ONE (22:15)
[2019-09-01] MEDS ORDERED: MTP25TSR PO (17:46)
[2019-09-01] MEDS ORDERED: FAMO20TA3 PO (17:46)
[2019-09-01] MEDS ORDERED: ATOR10TA66 PO (17:46)
--- NOTE | 2019-09-03 09:37 | Discharge Summary ---
Diagnosis/Chief Complaint Date of Admission Aug 28, 2019 at 10:05 Date of Discharge Discharge Diagnosis Assessment: Transferred up to ICU due to tachycardia of 124 with fever and elevated wbc s/p left total knee replacement Dr Gann s/p revision due to tendon dysfunction HLP Cardiac arrhythmia Smoker Post op anemia Dysuria Plan: Iron infusion Monitor BP IRF protocol Pain meds BM regimen Check UA if dysuria continues (1) S/P total knee arthroplasty Status: Acute (2) Cardiac arrhythmia (3) Smoker (4) Quadriceps tendon rupture Status: Acute (5) Osteoarthritis of left knee Status: Acute (6) HLD (hyperlipidemia) Status: Chronic (7) HTN (hypertension) Status: Chronic (8) GERD (gastroesophageal reflux disease) Status: Chronic Discharge Summary Discharge Physical Examination Allergies: Coded Allergies: cephalexin (Unverified Adverse Reaction, Intermediate, VOMITING, 08/22/19) pravastatin (Unverified Adverse Reaction, Mild, NAUSEA, 08/22/19) Vitals & I&Os Vital Signs Date Time Temp Pulse Resp B/P (MAP) Pulse Ox O2 Delivery O2 Flow Rate FiO2 08/31/19 21:00 38.1 165 18 174/87 (116) 100 Room Air General Appearance: Alert Respiratory: Clear to Auscultation Cardiovascular: Other (tachy) Neuro: Normal Speech Hospital Course Was the Problem List Reviewed?: Yes Hospital course: patient had a brief hospital course after she was admitted for left knee replacement with revision of tendon rupture and required rehab. Iron infusions were given for low hgb post op loss and maintained on Lovenox for DVT PPx per protocol. Labs and vitals remained stable and she participated with all therapies. Dysuria reported so I encouraged increased fluids but fever occurred so sepsis w/u ensued along with IVF and pancultured but UA normal along with CXR but wbc was 12.4 but patient declined and required transfer to ICU for close monitoring under Dr Vasquez service of whom I updated her on the IRF course. Labs (last 24 hrs) Laboratory Tests 08/29/19 04:42: White Blood Count 8.1, Red Blood Count 2.78L, Hemoglobin 8.2L, Hematocrit 26L, Mean Corpuscular Volume 92, Mean Corpuscular Hemoglobin 30, Mean Corpuscular Hemoglobin Concent 32, Red Cell Distribution Width 14.7H, Platelet Count 268, Mean Platelet Volume 9.1, Neutrophils (%) (Auto) 59, Lymphocytes (%) (Auto) 20, Monocytes (%) (Auto) 18H, Eosinophils (%) (Auto) 2, Basophils (%) (Auto) 0, Neutrophils # (Auto) 4.8, Lymphocytes # (Auto) 1.7, Monocytes # (Auto) 1.5H, Eo sinophils # (Auto) 0.2, Basophils # (Auto) 0.0, Sodium Level 137, Potassium Level 4.0, Chloride Level 104, Carbon Dioxide Level 22, Anion Gap 11, Blood Urea Nitrogen 11, Creatinine 0.66, Estimat Glomerular Filtration Rate > 60, BUN/Creatinine Ratio 17, Glucose Level 105, Calcium Level 9.0, Corrected Calcium 9.5, Iron Level 27L, Total Bilirubin 0.9, Aspartate Amino Transf (AST/SGOT) 61H, Alanine Aminotransferase (ALT/SGPT) 66H, Alkaline Phosphatase 107, Total Protein 6.5, Albumin 3.4 08/31/19 18:45: White Blood Count 12.6H, Red Blood Count 2.82L, Hemoglobin 8.3L, Hematocrit 26L, Mean Corpuscular Volume 93, Mean Corpuscular Hemoglobin 29, Mean Corpuscular Hemoglobin Concent 32, Red Cell Distribution Width 15.5H, Platelet Count 362, Mean Platelet Volume 8.5, Sodium Level 133L, Potassium Level 4.0, Chloride Level 99, Carbon Dioxide Level 23, Anion Gap 11, Blood Urea Nitrogen 12, Creatinine 0.77, Estimat Glomerular Filtration Rate > 60, BUN/Creatinine Ratio 16, Glucose Level 155H, Calcium Level 9.5, Corrected Calcium 9.9, Total Bilirubin 0.9, Aspartate Amino Transf (AST/SGOT) 30, Alanine Aminotransferase (ALT/SGPT) 46, Alkaline Phosphatase 97, Total Protein 6.5, Albumin 3.5, Lactic Acid Level 1.40, Procalcitonin 0.64H 08/31/19 19:00: Urine Color YELLOW, Urine Clarity CLEAR, Urine pH 7.0, Urine Specific [place] 1.020, Urine Protein NEGATIVE, Urine Glucose (UA) NEGATIVE, Urine Ketones NEGATIVE, Urine Nitrite NEGATIVE, Urine Bilirubin NEGATIVE, Urine Urobilinogen 0.2, Urine Leukocyte Esterase NEGATIVE, Urine RBC (Auto) NEGATIVE, Urine RBC NONE, Urine WBC NONE, Urine Squamous Epithelial Cells RARE, Urine Crystals NONE, Urine Bacteria TRACE, Urine Casts NONE, Urine Mucus SMALLH, Urine Culture Indicated NO 08/31/19 21:25: Glucometer 115H Microbiology 08/31/19 Blood Culture - Preliminary, Resulted No growth Pending Labs Microbiology Date/Time Source Procedure Growth Status 08/31/19 18:45 Peripheral Rt Ac Blood Culture - Preliminary No growth Resulted 08/31/19 18:40 Peripheral Lt Ac Blood Culture - Preliminary No growth Resulted Laboratory Tests 08/29/19 04:42: White Blood Count 8.1, Red Blood Count 2.78, Hemoglobin 8.2, Hematocrit 26, Mean Corpuscular Volume 92, Mean Corpuscular Hemoglobin 30, Mean Corpuscular Hemoglobin Concent 32, Red Cell Distribution Width 14.7, Platelet Count 268, Mean Platelet Volume 9.1, Neutrophils (%) (Auto) 59, Lymphocytes (%) (Auto) 20, Monocytes (%) (Auto) 18, Eosinophils (%) (Auto) 2, Basophils (%) (Auto) 0, Neutrophils # (Auto) 4.8, Lymphocytes # (Auto) 1.7, Monocytes # (Auto) 1.5, Eosinophils # (Auto) 0.2, Basophils # (Auto) 0.0, Sodium Level 137, Potassium Level 4.0, Chloride Level 104, Carbon Dioxide Level 22, Anion Gap 11, Blood Urea Nitrogen 11, Creatinine 0.66, Estimat Glomerular Filtration Rate > 60, BUN/Creatinine Ratio 17, Glucose Level 105, Calcium Level 9.0, Corrected Calcium 9.5, Iron Level 27, Total Bilirubin 0.9, Aspartate Amino Transf (AST/SGOT) 61, Alanine Aminotransferase (ALT/SGPT) 66, Alkaline Phosphatase 107, Total Protein 6.5, Albumin 3.4 08/31/19 18:45: White Blood Count 12.6, Red Blood Count 2.82, Hemoglobin 8.3, Hematocrit 26, Mean Corpuscular Volume 93, Mean Corpuscular Hemoglobin 29, Mean Corpuscular Hemoglobin Concent 32, Red Cell Distribution Width 15.5, Platelet Count 362, Mean Platelet Volume 8.5, Sodium Level 133, Potassium Level 4.0, Chloride Level 99, Carbon Dioxide Level 23, Anion Gap 11, Blood Urea Nitrogen 12, Creatinine 0.77, Estimat Glomerular Filtration Rate > 60, BUN/Creatinine Ratio 16, Glucose Level 155, Calcium Level 9.5, Corrected Calcium 9.9, Total Bilirubin 0.9, Aspartate Amino Transf (AST/SGOT) 30, Alanine Aminotransferase (ALT/SGPT) 46, Alkaline Phosphatase 97, Total Protein 6.5, Albumin 3.5, Lactic Acid Level 1.40, Procalcitonin 0.64 08/31/19 19:00: Urine Color YELLOW, Urine Clarity CLEAR, Urine pH 7.0, Urine Specific [place] 1.020, Urine Protein NEGATIVE, Urine Glucose (UA) NEGATIVE, Urine Ketones NEGAT MAY, Urine Nitrite NEGATIVE, Urine Bilirubin NEGATIVE, Urine Urobilinogen 0.2, Urine Leukocyte Esterase NEGATIVE, Urine RBC (Auto) NEGATIVE, Urine RBC NONE, Urine WBC NONE, Urine Squamous Epithelial Cells RARE, Urine Crystals NONE, Urine Bacteria TRACE, Urine Casts NONE, Urine Mucus SMALL, Urine Culture Indicated NO 08/31/19 21:25: Glucometer 115 Discharge Home Medications: Active Scripts Active Percocet 5-325 mg Tablet (Oxycodone HCl/Acetaminophen) 1 Each Tablet 1 Tab PO Q4H MDD 6 TABS 7 Days Reported Acid Russian Rubber (FAMOTIDINE) (Famotidine) 20 Mg Tablet 40 Mg PO DAILY Metoprolol Succinate 25 Mg Tab.er.24h 25 Mg PO BID Atorvastatin Calcium 10 Mg Tablet 10 Mg PO HS Tylenol (Acetaminophen) 325 Mg Capsule 650 Mg PO TID Aspirin 81 Mg Tab.chew 81 Mg PO DAILY Instructions to patient/family Please see electronic discharge instructions given to patient. Diagnosis/Problems Diagnosis/Problems (1) S/P total knee arthroplasty Status: Acute (2) Cardiac arrhythmia (3) Smoker (4) Quadriceps tendon rupture Status: Acute (5) Osteoarthritis of left knee Status: Chronic (6) HLD (hyperlipidemia) Status: Chronic (7) HTN (hypertension) Status: Chronic (8) GERD (gastroesophageal reflux disease) Status: Chronic Clinical Quality Measures DVT/VTE Risk/Contraindication: Risk Factor Score Per Nursin RFS Level Per Nursing on Admit: 4+=Very High JUAN JOSE SNYDER DO Sep 03, 2019 09:37
--- NOTE | 2019-09-04 11:33 | Therapy Team Discharge Summary ---
Therapy Discharge Summary Discharge Recommendations Date of Discharge Aug 31, 2019 at 21:30 Physical Therapy This patient was admitted to ARU post acute hospital stay for a left TKR that was complicated with a quadriceps tear that required surgical repair. 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 Upon admission, she was min assist with bed mobility and transfers and was SB-CGA with gait, mobilizing with a knee immobilizer left. Treatment consisted of functional strength, quad control, bed mobility, transfers and gait progression. She was making functional gains towards established goals but they remain unmet due to transfer to ICU secondary to medical complications. Will DC from ARU at this time. Occupational Therapy Decreased Activ Tolerance, Impaired Self-Care Skills PT Care Home Goals Care Home Goals PT Senior Vice President Goals Time Frame: Sep 18, 2019 Roll Left to Right (QC): 6 Sit to Lying (QC): 6 Lying-Sitting on Side/Bed(QC): 6 Sit to Stand (QC): 6 Chair/Gec-mc-Ifasw Xfer(QC): 6 Car Transfer (QC): 6 Does the Patient Walk: Yes Walk 10 feet (QC): 6 Walk 10ft-Uneven Surface(QC): 6 Walk 50ft with 2 Turns (QC): 6 Walk 150 ft (QC): 6 Wheel 50 feet with 2 turns (QC: 9 1 Step (curb) (QC): 4 4 Steps (QC): 4 12 Steps (QC): 88 Picking up an Object (QC): 88 Unmet due to unexpected discharge. OT Care Home Goals Senior Vice President Goals Time Frame: Sep 07, 2019 Eating (QC): 6 Oral Hygiene (QC): 6 Shower/Bathe Self (QC): 6 Upper Body Dressing (QC): 6 Lower Body Dressing (QC): 6 On/Off Footwear (QC): 6 Toileting Hygiene (QC): 6 Toilet/Commode Transfer (QC): 6 Additional Goals: 1-Demonstrate ADL Tasks, 2-Verbalize Understanding, 3- ImproveStrength/Alexsandra 1=Demonstrate adherence to instructed precautions during ADL tasks. 2=Patient will verbalize/demonstrate understanding of assistive devices/modifications for ADL. 3=Patient will improve strength/tolerance for activity to enable patient to perform ADL's. CARMINE BRANCH PT Sep 04, 2019 11:32
--- NOTE | 2019-09-04 11:45 | Therapy Team Discharge Summary ---
Therapy Discharge Summary Discharge Recommendations Date of Discharge Aug 31, 2019 at 21:30 Occupational Therapy Pt admitted to ARU s/p L TKA with complications of quadriceps tear requiring s urgical intervention. At PLOF, pt was mod I with ADLs with task modification/ activity modification as needed and mod I with functional mobility using SPC. At admission, pt was independent with feeding, set up oral hygiene, min A shower, set up upper body dressing, min A lower body dressing, max A footwear and SBA with toileting. OT txs focused on increasing independence and safety with ADLs and functional mobility, increasing BUE strength and functional endurance. Pt met goals of being independent with feeding, oral hygiene, showering, upper body dressing, and toileting while on ARU. Pt made functional gains towards other goals but they are unmet due to pt transferring to ICU secondary to medical complications. Pt to d/c from OT at this time. Decreased Activ Tolerance, Impaired Self-Care Skills PT Zoogler Goals Nursing Home Goals PT Nursing Home Goals Time Frame: Sep 18, 2019 Roll Left to Right (QC): 6 Sit to Lying (QC): 6 Lying-Sitting on Side/Bed(QC): 6 Sit to Stand (QC): 6 Chair/Lfr-uj-Lfenm Xfer(QC): 6 Car Transfer (QC): 6 Does the Patient Walk: Yes Walk 10 feet (QC): 6 Walk 10ft-Uneven Surface(QC): 6 Walk 50ft with 2 Turns (QC): 6 Walk 150 ft (QC): 6 Wheel 50 feet with 2 turns (QC: 9 1 Step (curb) (QC): 4 4 Steps (QC): 4 12 Steps (QC): 88 Picking up an Object (QC): 88 OT Nursing Home Goals Zoogler Goals Time Frame: Sep 07, 2019 Eating (QC): 6 (met) Oral Hygiene (QC): 6 (met) Shower/Bathe Self (QC): 6 (met) Upper Body Dressing (QC): 6 (met) Lower Body Dressing (QC): 6 (not met) On/Off Footwear (QC): 6 (not met) Toileting Hygiene (QC): 6 (met) Toilet/Commode Transfer (QC): 6 (met) Additional Goals: 1-Demonstrate ADL Tasks, 2-Verbalize Understanding, 3- ImproveStrength/Alexsandra 1=Demonstrate adherence to instructed precautions during ADL tasks. 2=Patient will verbalize/demonstrate understanding of assistive devices/modifications for ADL. 3=Patient will improve strength/tolerance for activity to enable patient to perform ADL's. LUISA MANCIA OT Sep 04, 2019 11:45
== END 2019-08-31 21:30 | disposition short-term general hospital (02) | DRG 561 ==
LOC: EDSTATUS 11:27
PROVIDERS: ADMIT Internal Medicine; ATTEND Internal Medicine
DX: Z47.1 Aftercare following joint replacement surgery (principal); Z96.652 Presence of left artificial knee joint; I49.9 Cardiac arrhythmia, unspecified; F17.210 Nicotine dependence, cigarettes, uncomplicated; E78.5 Hyperlipidemia, unspecified; I10 Essential (primary) hypertension; K21.9 Gastro-esophageal reflux disease without esophagitis; M54.9 Dorsalgia, unspecified; D64.9 Anemia, unspecified; R30.0 Dysuria; R00.0 Tachycardia, unspecified; R50.9 Fever, unspecified; D72.829 Elevated white blood cell count, unspecified
CPT/HCPCS: 36415; 71045; 80053; 81000; 82962; 83540; 83605; 84145; 85025; 85027; 87040

== ENCOUNTER 2019-08-31 21:30 | Inpatient (IN) | payer OTHER ==
[~2019-08-31] VITALS: Ht 162 cm; Wt 87.4 kg
[~2019-08-31 21:30] MED LIST changes: +MIDAZOLAM 5 MG/5 ML (VERSED) VIAL IJ ONE; +SUCCINYLCHOLINE INJ 100 MG/5 ML SYR INJ ONE
--- NOTE | 2019-08-31 21:30 | NUR ---
RECEIVED TRANSFER FROM ARU, 64 YEAR OLD FEMALE ON REHAB UNIT FOR POST OP CARE FROM TKR ON 08-21. HEARTRATE 140'S, PT IS TACHYPNEIC. O2 SATS 99% ON ROOM AIR. EXTRA LOVENOX GIVEN AT THIS TIME. ABG DONE, BLOOD CULTURES AND ABG ORDERED
--- OUTSIDE RECORDS SUMMARY | 2019-08-31 21:35 | XMS REPORT | Clinical Summary ---
Author Author [facility] Organization [facility] Address Unknown Phone Unavailable Care Team Providers Care Car Stower Name Role Phone Temo Carcamo PCP Unavailable Source Comments Some departments are not documenting in the electronic medical record. If you d o not see the information that you expected, contact Release of Information in formerly [facility] [email or web address] Information Management department at [phone] for further assistan ce in locating additional records.[facility] Allergies Comments Active Allergy Reactions Severity Noted [...] GLUC/GABBY-MSM#2/C/D3/CAROLINE Take by 0 /BORN mouth daily. ([id number] WITH VIT D PO) Active Problems Problem [...] approximate ly 30-35 mmHg. 10/03/12 - ([place], [place]) N o angiographically significant coronary artery [...] PPO COVENTRY COVENTRY xxxxxxxxxxx 2013-P PPO resent [phone] Advance Directives Patient Hvac Lead Explanation Type Date Recorded Advance 02/28/2013 3:58 PM Directive/DPOA
--- OUTSIDE RECORDS SUMMARY | 2019-08-31 21:36 | XMS REPORT ---
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 [facility] [email or web address] [facility] A4 Data Address [address] [address] Care Team Providers Care Mason Apprentice Name Role Phone ISABEL KIRBY Unavailable Dany GARNETT MD Unavailable Unavailable REFUGIO GANN Unavailable JUANJO AMADOR MA Unavailable Unavailable REFUGIO GANN MD Unavailable Unavailable REFUGIO GANN MD Unavailable Unavailable Unavailable Unavailable Unavailable Unavailable [...] Body mass 08-23-2019 - Chronic Active REFUGIO GANN [facility] Via nutritional; index (BMI) , MD [facility] endocrine; and 33.0-33.9, Hospital - metabolic adult [place] disorders (6 (85989) sources.) Other Care involving Episodic Active no name no info rmation aftercare (3 other physical sources.) therapy Other lower Cough Episodic Active no name no informat ion respiratory disease (4 sources.) Spondylosis; Dorsalgia, 08-23-2019 - Episodic Active REFUGIO MIKE [facility] Via intervertebral unspecified , MD [facility] disc Translations: Hospital - disorders; [ LUMBAGO WITH [place] other back SCIATICA, (28290) problems (6 UNSPECIFIED sources.) SIDE] Immunizations Encounter for 08-22-2019 - Episodic Active KEM JENKINS LE[facility]ON [facility] Via and screening screening for , MD [facility] for infectious other Hospital - disease (7 bacterial [place] sources.) diseases (18797) Translations: [ SCREEN-BACTERI AL DIS NEC, ENCOUNTER FOR SCREENING FOR OTHER VIRAL ] Essential Essential 08-23-2019 - Chronic Active REFUGIO PRAJAPATI [facility] Via hypertension (primary) , MD [place] (9 sources.) hypertension [facility] (24791) Esophageal Gastro-esophag 08-23-2019 - Chronic Active REFUGIO GANN [facility] Via disorders (6 eal reflux , MD [place] sources.) disease Hospital - [facility] esophagitis (19277) 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 ALI AGGIE , [facility] Via aftercare (6 (current) use YANNI [facility] sources.) of aspirin [facility] (65367) NEGATED Long-term Episodic Active no name no informati on no (current) use information (6 of aspirin sources.) NEGATED Long-term Episodic Active no name no informati on no (current) use information (9 of other sources.) medications NEGATED Nicotine Chronic Active no name [facility] Via no dependenceNazia information (3 cigarettes, Hospital - sources.) uncomplicated [place] (43717) Other Obesity, 08-23-2019 - Chronic Active REFUGIO GANN [facility] Via nutritional; unspecified MD [facility] endocrine; and Hospital - metabolic [place] disorders (6 (06705) sources.) Other 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-23-2019 - Chronic Active REFUGIO MADRIGAL [facility] Via congenital imperfecta MD [facility] anomalies (9 Hospital - sources.) [place] (99493) Osteoporosis Osteoporosis, Chronic Active no name no in formation (3 sources.) unspecified Disorders of Other and 08-23-2019 - Chronic Active ALI AGGIE , [facility] Via lipid unspecified YANNI [facility] metabolism (24 hyperlipidemia Hospital - sources.) Translations: [place] [ OTHER (51417) HYPERLIPIDEMIA , HYPERLIPIDEMIA , UNSPECIFIED, PURE HYPERCHOLESTER OLEMIA, UNSPECIFIED] External cause Other and 08-28-2019 - Episodic Active REFUGIO ELLISTA [facility] Via codes: unspecified , MD [facility] Natural/enviro overexertion Hospital - nment (5 or strenuous [place] sources.) movements or (36135) postures, initial encounter NEGATED Other chest Episodic Active no name no informa tion no pain information (6 sources.) Other Other long Episodic Active ALI AGGIE , [facility] Via aftercare (3 term (current) YANNI [facility] sources.) drug therapy [facility] (16464) NEGATED Other no information Active no name no infor mation no premature information beats (12 sources.) Translations: [ TACHYCARDIA NOS, PALPITATIONS, VENTRICULAR PREMATURE DEPOLARIZATION , PALPITATIONS, PREMATURE BEATS NEC] Unclassified Other Episodic Active no name no informa tion (3 sources.) screening mammogram Other upper Other seasonal 08-23-2019 - Chronic Active CALEB GANN [facility] Via respiratory allergic , MD [facility] disease (6 rhinitis Hospital - sources.) [place] ([address]876) Other Other Chronic Active ALI AGGIE , [facility] Via circulatory specified YANNI [facility] disease (3 disorders of Hospital - sources.) arteries and [place] arterioles (41420) Sprains and Other sprains 08-28-2019 - Episodic Active REFUGIO GANN [facility] Via strains (11 and strains of , MD [place] sources.) ankle Hospital - Translations: [place] [ STRAIN OF (75849) LEFT QUADRICEPS MUSCLE, FASCIA] NEGATED Other tear of no information Active no name [facility] Via no lateral [place] information (3 meniscus, Hospital - sources.) current [place] injury, left (71903) knee, initial encounter Translations: [ OTH TEAR OF MEDIAL MENISCUS, CURRENT INJ, CHONDROMALACIA PATELLAE, LEFT KNEE] NEGATED Other tear of Episodic Active no name no infor mation no medial information meniscus, (18 sources.) current injury, right knee, initial encounter Translations: [ OTH TEAR OF MEDIAL MENISCUS, CURRENT INJ] Cardiac Palpitations Episodic Active ALI AGGIE , [facility] Vi a dysrhythmias YANNI [facility] (3 sources.) [facility] (97240) External cause Patient 08-28-2019 - Episodic Active REFUGIO MIKE [facility] Via codes: Place bathroom in , MD [facility] of occurrence hospital as Hospital - ([address] sources[address] [facility] occurrence of (74806) the external cause Screening and Personal 08-23-2019 - Episodic Active REFUGIO BARRAGAN [facility] Via history of history of , MD [facility] mental health nicotine Hospital - and substance dependence [place] abuse codes (6 (87356) sources.) Heart valve Rheumatic Chronic Active ALI AGGIE , [facility] Via disorders (3 tricuspid YANNI [facility] sources.) insufficiency Hospital - [place] (38256) Other lower Shortness of Episodic Active ALI AGGIE , [facility] Via respiratory breath YANNI [facility] disease (13 Hospital - sources.) [place] (77437) Residual Tobacco use Episodic Active MD TAMIR Not Avjusto lable codes; (09745) unclassified (17 sources.) Osteoarthritis Unilateral 08-22-2019 - Chronic Active REFUGIO CRUZYUNG [facility] Via (7 sources.) primary , MD [facility] osteoarthritis [facility] - , left knee [place] (31052) Cardiac Ventricular Chronic Active MD TAMIR Not Avai lable dysrhythmias premature (48816) (16 sources.) depolarization Translations: [ VENTRICULAR TACHYCARDIA] Past or Other Problems Problem Normalized Date Last Normalized Normalized Provider Fa cility Classification Problem(s) Recorded Problem Problem Sta tus Duration NEGATED Exposure to no information no information no name no information no other information (9 specified sources.) factors, initial encounter Translations: [ ACCIDENT NOS] NEGATED Fall on same no information no information no name [facility] Via no level from [facility] slipping, Hospital - (19 sources.) tripping and [place] stumbling (81180) without subsequent striking against object, initial encounter Translations: [ FALL STRIKING OBJECT NEC, UNSPECIFIED FALL, SUBSEQUENT ENCOUNTER] Other injuries Knee, leg, Episodic Completed Pham OSORIO ot Available and conditions ankle, and MD (02195) due to foot injury external causes (1 source.) NEGATED Other external no information no information no name no information no cause status information (7 sources.) NEGATED Private garage no information no information no name [facility] Via no of [facility] information (7 [facility] Hospital - sources.) (private) [facility] as the ([address]) place of occurrence of the external cause Translations: [ ACCIDENT IN HOME] Procedures Procedure Normalized Procedure Procedure Result Performer Facility Date 10-19-2017 Arthroscopic partial no information REFUGIO May Via [facility] medial meniscectomy [place] (66898) 08-24-2019 REPAIR LEFT UPPER LEG no information no name [facility] Via [facility] TENDON, OPEN APPRO [facility] (58144) 08-22-2019 REPLACE OF L KNEE JT no information no name [facility] Via [place] WITH SYNTH SUB, [facility] () Immunizations Normalized Immunization Date Notes Care Provider Facili ty Immunization vaccine no information ISABEL KIRBY [facility] Translations: [ [address]5819 [place] () vaccine] Results Test Name Value Interpretation Reference Range Date Time Fa cility (Normalized) (Normalized) (Medline Reference) not yet categorized on 2019-08-31 no information NAME: YADIRA FRANCES (no code) PENDING LOCAT ION K ~MED REC#: [facility] ([id number]) [id number] ~ ~PHYSICIAN: JUAN JOSE SNYDER DO ~Subjective ~HPI/CC On Admission ~Date Seen by Provider: Aug 31, 2019 ~Time Seen by Provider: 10:00 ~Subjective/Even ts-last exam ~Pain pill is given every four hours scheduled ~Colace given for stool softener and that works pretty well ~Incision looks good ~Bowels are moving after narcotic bowel resolved a few days ago ~Having urinary frequency so if this continues after she drinks more will do in/out cath for UA ~IV iron infusion started for low iron and Hgb of 8.2 ~Checked meds and labs ~Conferred with RN ~Reviewed therapy notes ~ ~Review of Systems ~General: Fatigue ~Genitourinary: Frequency ~Musculoskeletal : leg pain ~ ~Objective ~Exam ~Vital Signs ~ ~Vital Signs ~ ~ ~ Date Time Temp Pulse Resp B/P (MAP) Pulse Ox O2 Delivery O2 Flow Rate FiO2 ~ ~08/31/19 06:00 36.2 76 18 110/68 (82) 96 Room Air ~ ~Capillary Refill : Less Than 3 Seconds ~General Appearance: No Apparent Distress, WD/WN ~HEENT: PERRL/EOMI, Normal ENT Inspection, Pharynx Normal ~Neck: Full Range of Motion, Normal Inspection, Non Tender, Supple, Carotid Bruit ~Respiratory: Chest Non Tender, Lungs Clear, Normal Breath Sounds, No Accessory Muscle Use, No ~Respiratory Distress ~Cardiovascular: Regular Rate, Rhythm, No Edema, No Gallop, No JVD, No Murmur, Normal Peripheral ~Pulses ~Gastrointestina l: Normal Bowel Sounds, No Organomegaly, No Pulsatile Mass, Non Tender, Soft ~Back: Normal Inspection, No CVA Tenderness, No Vertebral Tenderness ~Extremity: Normal Capillary Refill, Normal Inspection, Normal Range of Motion (left leg in ~immobilizer), Non Tender, No Calf Tenderness, No Pedal Edema ~Neurologic/Psyc hiatric: Alert, Oriented x3, No Motor/Sensory Deficits, Normal Mood/Affect, 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 ~ ~FIM ~Transfers ~Therapy Code Descriptions/Def initions ~ ~Functional [place] Measure: ~0=Not Assessed/NA 4=Minimal Assistance ~1=Total Assistance 5=Supervision or Setup ~2=Maximal Assistance 6=Modified [place] ~3=Moderate Assistance 7=Complete IndependenceSCAL E: Activities may be completed with or without ~assistive devices. ~ ~6-Prswiuttbj-qi tient completes the activity by him/herself with no assistance from a helper. ~5-Set-up or Clean-up Assistance-helpe r sets up or cleans up; patient completes activity. [place] ~assists only prior to or ~ following the activity. ~4-Supervision or Touching Assistance-helpe r provides verbal cues and/or touching/steadyi ng and/or ~contact guard assistance as patient completes activity. Assistance may be provided ~ throughout the activity or intermittently. ~3-Partial/Moder ate Assistance-helpe r does LESS THAN HALF the effort. [place] lifts, holds or supports~trunk or limbs, but provides less than half the effort. ~2-Substantial/M aximal Assistance-helpe r does MORE THAN HALF the effort. [place] lifts or holds trunk ~or limbs and provides more than half the effort. ~9-Mmiwthjhx-mky per does ALL the effort. Patient does [...] Medical Conditions or Safety Concerns. ~Roll Left to Right (QC): 6 ~Sit to Lying (QC): 3 ~Sit to Stand (QC): 4 ~Chair/Bed-to- air Xfer(QC): 4 ~Car Transfer (QC): 88 ~ ~Gait Training ~Does the Patient Walk?: Yes ~Distance: 120'x2 ~Walk 10 feet (QC): 4 ~Walk 50 ft with 2 Turns(QC): 4 ~Walk 150 ft (QC): 5 ~Walking 10ft/uneven surface-QC: 4 ~Gait Persons Needed: 1 ~Gait Assistive Device: FWW ~ ~Wheelchair Training ~Does the Pt Use a Wheelchair?: No ~Wheel 50 ft with 2 turns (QC): 9 ~Wheel 150 ft (QC): 9 ~ ~Stair Training ~1 Step (curb) (QC): 88 ~4 Steps (QC): 88 ~12 Steps (QC): 88 ~ ~Balance ~Picking up an Object (QC): 88 ~ ~ADL-Treatment ~Eating (QC): 6 ~Oral Hygiene (QC): 6 ~Bathing Location: L Arm, R Arm, L Upper Leg, R Upper Leg, R Lower Leg (including foot), Chest, ~Abdomen, Buttocks, Perineal Area ~Shower/Bathe Self (QC): 6 ~Upper Body Dressing (QC): 6 ~Lower Body Dressing (QC): 4 ~On/Off Footwear (QC): 3 ~Toileting Hygiene (QC): 6 (Completes mod I.) ~Toilet Transfer (QC): 6 (Completes mod I) ~ ~Assessment/Plan ~Assessment and Plan ~Assess Plan/Chief Complaint ~Assessment: ~s/p left total knee replacement Dr Gann s/p revision due to tendon dysfunction ~HLP ~Cardiac arrhythmia ~Smoker ~Post op anemia ~Dysuria ~ ~Plan: ~Iron infusion ~Monitor BP ~IRF protocol ~Pain meds ~BM regimen ~Check UA if dysuria continues ~ ~(1) S/P total knee arthroplasty ~Status: Acute ~(2) Cardiac arrhythmia ~(3) Smoker ~(4) Quadriceps tendon rupture ~Status: Acute ~(5) Osteoarthritis of left knee ~Status: Acute ~(6) HLD (hyperlipidemia) ~Status: Chronic ~(7) HTN (hypertension) ~Status: Chronic ~(8) GERD (gastroesophagea l reflux disease) ~Status: Chronic ~ ~ ~ ~JUAN JOSE SNYDER DO Aug 31, 2019 06:43 ~ ~ ~<Created by JUAN JOSEDoug SNYDER DO> ~<Electronically signed by JUAN JOSE SNYDER DO> 08/31/19 1059 ~ ~ no information NAME: YADIRA FRANCES (no code) PENDING LOCAT ION K ~MED REC#: [facility] [id number]) [id number] ~ ~PHYSICIAN: VICENTE TORO PT ~PT Daily Note-Current ~Subjective ~Patient in recliner pre tx, agrees to PT, has 6/10 pain in left leg. ~ ~Appearance ~Patient in recliner post tx with nurse call, phone, tray, all needs met. ~ ~Mental Status ~Patient Orientation: Normal For Age ~left leg brace ~ ~Transfers ~SCALE: Activities may be completed with or without assistive devices. ~ ~1-Idoppjmnqa-ew tient completes the activity by him/herself with no assistance from a helper. ~5-Set-up or Clean-up Assistance-helpe r sets up or cleans up; patient completes activity. [place] ~assists only prior to or ~ following the activity. ~4-Supervision or Touching Assistance-helpe r provides verbal cues and/or touching/steadyi ng and/or ~contact guard assistance as patient completes activity. Assistance may be provided ~ throughout the activity or intermittently. ~3-Partial/Moder ate Assistance-helpe r does LESS THAN HALF the effort. [place] lifts, holds or supports~trunk or limbs, but provides less than half the effort. ~2-Substantial/M aximal Assistance-helpe r does MORE THAN HALF the effort. [place] lifts or holds trunk ~or limbs and provides more than half the effort. ~9-Jcxdfwpfl-rnk per does ALL the effort. Patient does [...] or Safety Concerns. ~Sit to Stand (QC): 4 ~Chair/Bed-to- air Xfer(QC): 4 ~SBA ~ ~Weight Bearing ~Right Lower Extremity: Right ~Full Weight Bearing ~Left Lower Extremity: Left ~Weight Bearing/Tolerate d ~ ~Gait Training ~Distance: 120'x2 ~Walk 10 feet (QC): 4 ~Walk 50 ft with 2 Turns(QC): 4 ~Gait Persons Needed: 1 ~Gait Assistive Device: FWW ~SBA, slow but steady ambulation, less weight bearing on left leg. ~ ~Exercises ~Standing: Heel/toe raises, 3 way Ex=Flex, Abd, Ext (only performed with left leg) ~Standing Reps: 15 ~Patient could not handle standing on left leg to perform exercises with right leg. LAQ right side ~with 2# ankle weight for 5 min ~NuStep Minutes: 15 ~ NuStep Workload: 4 (left leg not used) ~ ~Treatments ~transfers, ambulation, functional strengthening ~ ~Assessment ~Current Status: Fair Progress ~Patient has unexpected pain in left leg with weight bearing and QS in the past , plan to contact ~surgeon to consult with him. ~ ~PT Short Term Goals ~Short Term Goals ~Time Frame: Sep 04, 2019 ~Roll Left Right: 6 ~Sit to lyin ~Lying to sitting on side of be: 6 ~Sit to stand: 5 ~Chair/bed-to- air transfer: 5 ~Walk 10 feet: 5 ~Walk 50 feet with two turns: 5 ~Walk 150 feet: 5 ~ ~PT Snf Goals ~Supervisor Sample Goals ~PT Supervisor Sample Goals Time Frame: Sep 18, 2019 ~Roll Left Right (QC): 6 ~Sit to Lying (QC): 6 ~Lying-Sitting on Side/Bed(QC): 6 ~Sit to Stand (QC): 6 ~Chair/Bed-to- air Xfer(QC): 6 ~Toilet Transfer (QC): 6 ~Car Transfer (QC): 6 ~Does the Patient Walk: Yes ~Walk 10 feet (QC): 6 ~Walk 50ft with 2 Turns (QC): 6 ~Walk 150 ft (QC): 6 ~Walking 10ft on Uneven Surface: 6 ~1 Step (curb) (QC): 4 ~4 Steps (QC): 4 ~12 Steps (QC): 88 ~Picking up an Object (QC): 88 ~Wheel 50 feet with 2 turns (QC: 9 ~Wheel 150 feet: 9 ~ ~PT Plan ~Problem List ~Problem List: Activity Tolerance, Functional Strength, Safety, Balance, Gait, Transfer, Bed ~Mobility, ROM ~ ~Treatment/Plan ~Treatment Plan: Continue Plan of Care ~Treatment Plan: Bed Mobility, Education, Functional Activity Alexsandra, Functional Strength, Group ~Therapy, Gait, Safety, Therapeutic Exercise, Transfers ~Treatment Duration: Sep 18, 2019 ~Frequency: At least 5 of 7 days/Wk (IRF) ~Estimated Hrs Per Day: 1.5 hours per day ~Patient and/or Family Agrees t: Yes ~ ~Safety Risks/Education ~Patient Education: Gait Training, Transfer Techniques, Correct Positioning, Safety Issues ~Teaching Recipient: Patient ~Teaching Methods: Demonstration, Discussion ~Response to Teaching: Reinforcement Needed ~ ~Time/GCodes ~Time In: 1000 ~Time Out: 1100 ~Total Billed Treatment Time: 60 ~Total Billed Treatment ~1 visit ~GT 30' ~EX 30' ~ ~ ~ ~VICENTE TORO PT Aug 31, 2019 11:18 ~ ~ ~<Created by VICENTE TORO PT> ~<Electronically signed by VICENTE TORO PT> 08/31/19 1118 ~ ~ no information NAME: YADIRA FRANCES (no code) PENDING LOCAT ION K ~MED REC#: [facility] [id number] ~ ~PHYSICIAN: CARMINE BELTRAN ~OT Current Status-Daily Note ~Subjective ~Pt seen 2x's today (7779-3515,1245- 1315). Pt agrees to therapy. Pt requested pain pill at AM ~session, nrsg brought meds. Pt stated that she just felt a bit of pain in pm session. ~ ~Mental Status/Objective ~Patient Orientation: Person, Place, Time, Situation ~Attachments: IV ~ ~ADL-Treatment ~2353-6099: Pt agrees to shower. Pt ambulated using FWW to bathroom and transferred to toilet, mod~I. Completed toilet hygiene/clothing manipulation, mod I. Transferred into shower mod I. Assist ~to cover IV site and knee immobilizer. Pt completed shower using shower seat, grabbars, hand held ~shower and long handle sponge, mod I. Pt ambulated back to room and sat in recliner. Pt took ~increased time to complete ADLs. Pt able to stand at sink to complete grooming, completed oral care~earlier in day. After session, pt sitting in recliner with call light/phone in reach. All needs ~met in room. ~0082-2990: Upper body dressing, mod I. Lower body dressing, SBA in standing while hiking pants ~over hips and assist to don/doff knee immobilizer. Min A for footwear due to knee precautions on L ~LE and wearing knee immobilizer. After session, pt sitting in recliner with call light/phone in ~reach. All needs met in room. ~Therapy Code Descriptions/Def initions ~ ~Functional [place] Measure: ~0=Not Assessed/NA 4=Minimal Assistance ~1=Total Assistance 5=Supervision or Setup ~2=Maximal Assistance 6=Modified [place] ~3=Moderate Assistance 7=Complete IndependenceSCAL E: Activities may be completed with or without ~assistive devices. ~ ~2-Mzzxlvngya-cl tient completes the activity by him/herself with no assistance from a helper. ~5-Set-up or Clean-up Assistance-helpe r sets up or cleans up; patient completes activity. [place] ~assists only prior to or ~ following the activity. ~4-Supervision or Touching Assistance-helpe r provides verbal cues and/or touching/steadyi ng and/or ~contact guard assistance as patient completes activity. Assistance may be provided ~ throughout the activity or intermittently. ~3-Partial/Moder ate Assistance-helpe r does LESS THAN HALF the effort. [place] lifts, holds or supports~trunk or limbs, but provides less than half the effort. ~2-Substantial/M aximal Assistance-helpe r does MORE THAN HALF the effort. [place] lifts or holds trunk ~or limbs and provides more than half the effort. ~8-Ogayedeuj-qrm per does ALL the effort. Patient does [...] due to Medical Conditions or Safety Concerns. ~Shower/Bathe Self (QC): 6 ~Upper Body Dressing (QC): 6 ~Lower Body Dressing (QC): 3 ~On/Off Footwear: 3 ~Toileting Hygiene (QC): 6 ~Toilet Transfer (QC): 6 ~ ~OT Short Term Goals ~Short Term Goals ~Time Frame: Sep 03, 2019 ~Putting on/taking off footwear: 3 ~ ~OT Snf Goals ~Snf Goals ~Time Frame: Sep 07, 2019 ~Eating (QC): 6 ~Oral Hygiene (QC): 6 ~Toileting Hygiene (QC): 6 ~Shower/Bathe Self (QC): 6 ~Upper Body Dressing (QC): 6 ~Lower Body Dressing (QC): 6 ~On/Off Footwear (QC): 6 ~Additional Goals: 1-Demonstrate ADL Tasks, 2-Verbalize Understanding, 3-ImproveStrengt h/Alexsandra ~1=Demonstrate adherence to instructed precautions during ADL tasks. ~2=Patient will verbalize/demons trate understanding of assistive devices/modifica tions for ADL. ~3=Patient will improve strength/toleran ce for activity to enable patient to perform ADL's. ~ ~OT Education/Plan ~Problem List/Assessment ~Assessment: Decreased Activ Tolerance, Impaired Self-Care Skills ~ ~Discharge Recommendations ~Plan/Recommenda tions: Continue POC ~ ~Treatment Plan/Plan of Care ~Patient would benefit from OT for education, treatment and training to promote independence in ~ADL's, mobility, safety and/or upper extremity function for ADL's. ~Plan of Care: ADL Retraining, Functional Mobility, UE Funct Exercise/Act ~Treatment Duration: Sep 07, 2019 ~Frequency: At least 5 of 7 days/Wk (IRF) ~Estimated Hrs Per Day: 1.5 hours per day ~Rehab Potential: Fair ~ ~Time/GCodes ~Start Time: 11:00 (4050-7489) ~Stop Time: 13:15 (8875-4557) ~Total Time Billed (hr/min): 100 ~Billed Treatment Time ~2 visits-ADL 7 (100 min) ~ ~ ~ ~CARMINE BELTRAN Aug 31, 2019 13:24 ~ ~ ~<Created by CARMINE SUAZO> ~<Electronically signed by CARMINE SUAZO> 08/31/19 1327 ~ ~ no information NAME: YADIRA FRANCES (no code) PENDING LOCAT ION K ~MED REC#: [facility] [id number]) [id number] ~ ~PHYSICIAN: AARTI SCHULTZ HAND BUFFING WHEEL FORMER ~PT Daily Note-Current ~Subjective ~Pt. states she researched her predicament ie quadriceps rupture after TKR and states she knows she ~is vulnerable for more "trouble" and is trying to do all she can to improve. Pt. rates pain at 9/10~as Rx begins. Nursing is called and meds dispensed. ~ ~Pain ~ ~ Numeric Pain Scale: 9 ~ Location: Left ~ Location Body Site: Knee ~ Pain Description: Squeezing ~ ~Mental Status ~Patient Orientation: Normal For Age ~Attachments: Other-See Comments (knee immoblizer) ~ ~Transfers ~SCALE: Activities may be completed with or without assistive devices. ~ ~6-Xbegxtckot-kl tient completes the activity by him/herself with no assistance from a helper. ~5-Set-up or Clean-up Assistance-helpe r sets up or cleans up; patient completes activity. [place] ~assists only prior to or ~ following the activity. ~4-Supervision or Touching Assistance-helpe r provides verbal cues and/or touching/steadyi ng and/or ~contact guard assistance as patient completes activity. Assistance may be provided ~ throughout the activity or intermittently. ~3-Partial/Moder ate Assistance-helpe r does LESS THAN HALF the effort. [place] lifts, holds or supports~trunk or limbs, but provides less than half the effort. ~2-Substantial/M aximal Assistance-helpe r does MORE THAN HALF the effort. [place] lifts or holds trunk ~or limbs and provides more than half the effort. ~4-Dyalrajsp-jha per does ALL the effort. Patient does [...] due to Medical Conditions or Safety Concerns. ~in out chair, on off Rx table all SBA ~ ~Weight Bearing ~Right Lower Extremity: Right ~Full Weight Bearing ~Left Lower Extremity: Left ~Weight Bearing/Tolerate d ~ ~Gait Training ~Does the Patient Walk?: Yes ~Gait Assistive Device: FWW ~820pit3, pt. required rest breaks secondary to pain. heavy weight bearing on FWW, improved step ~length , more even ~ ~Exercises ~Supine Ex: Ankle pumps, Quad Set, Glut sets, Heel Slides (right only), Short Arc Quads (right ~only), Straight leg raise (right only), Hip abd/add (right only) ~Supine Reps: 15 ~Seated Therapy Exercises: Ankle pumps ~Seated Reps: 20 ~pts pain level such that isometrics only were done on L ~ ~Treatments ~experimented with elevation with wedge and pillow in supine on mat with pt. still having high pain. ~8/10 at end of Rx with pt.in recliner with LEs elevated ~ ~Assessment ~Current Status: Good Progress ~safe gait, good understanding of expectations ~ ~PT Short Term Goals ~Short Term Goals ~Time Frame: Sep 04, 2019 ~Roll Left Right: 6 ~Sit to lyin ~Lying to sitting on side of be: 6 ~Sit to stand: 5 ~Chair/bed-to- air transfer: 5 ~Walk 10 feet: 5 ~Walk 50 feet with two turns: 5 ~Walk 150 feet: 5 ~ ~PT Supervisor Sample Goals ~Snf Goals ~PT Snf Goals Time Frame: Sep 18, 2019 ~Roll Left Right (QC): 6 ~Sit to Lying (QC): 6 ~Lying-Sitting on Side/Bed(QC): 6 ~Sit to Stand (QC): 6 ~Chair/Bed-to- air Xfer(QC): 6 ~Toilet Transfer (QC): 6 ~Car Transfer (QC): 6 ~Does the Patient Walk: Yes ~Walk 10 feet (QC): 6 ~Walk 50ft with 2 Turns (QC): 6 ~Walk 150 ft (QC): 6 ~Walking 10ft on Uneven Surface: 6 ~1 Step (curb) (QC): 4 ~4 Steps (QC): 4 ~12 Steps (QC): 88 ~Picking up an Object (QC): 88 ~Wheel 50 feet with 2 turns (QC: 9 ~Wheel 150 feet: 9 ~ ~PT Plan ~Treatment/Plan ~Treatment Plan: Continue Plan of Care ~Treatment Plan: Bed Mobility, Education, Functional Activity Alexsandra, Functional Strength, Group ~Therapy, Gait, Safety, Therapeutic Exercise, Transfers ~Treatment Duration: Sep 18, 2019 ~Frequency: At least 5 of 7 days/Wk (IRF) ~Estimated Hrs Per Day: 1.5 hours per day ~Patient and/or Family Agrees t: Yes ~ ~Safety Risks/Education ~Patient Education: Gait Training, Transfer Techniques, Correct Positioning, Disease Process, Safety~Issues ~Teaching Methods: Discussion ~Response to Teaching: Verbalize Understanding, Return Demonstration ~ ~Time/GCodes ~Time In: 1505 ~Time Out: 1545 ~Total Billed Treatment Time: 40 ~Total Billed Treatment ~1,FA15m,GT15m,E X15m ~ ~ ~ ~AATRI SCHULTZ HAND BUFFING WHEEL FORMER Aug 31, 2019 15:50 ~ ~ ~<Created by AARTI SCHULTZ [employer] BU[employer]ING WHE[employer] FORMER> ~<Electronically signed by AARTI SCHULTZ [employer] BU[employer] FORMER> 08/31/19 1553 ~ ~ laboratory on 2019-08-31 Albumin 3.5 g/dL (NEG) 3.4 - 5.4 g/dL 08-31-2019 PENDING LOCATION [Mass/Vol] 14:45-040 [facility] ([id number]) ALP [Catalytic 97 U/L (NEG) 44 - 147 U/L 08-31-2019 PEND ING LOCATION activity/Vol] 14:45-0400 [facility] ([id number]) ALT [Catalytic 46 U/L (NEG) 4 - 40 U/L 08-31-2019 PENDIN G LOCATION activity/Vol] 14:45-040 [facility] ([id number]) Anion gap 11 mmol/L (NEG) 3 - 11 mmol/L 08-31-2019 PENDING LOCATION [Moles/Vol] 14:45-040 [facility] ([id number]) AST [Catalytic 30 U/L (NEG) 10 - 34 U/L 08-31-2019 PENDI NG LOCATION activity/Vol] 14:45-0400 [facility] ([id number]) Bacteria LM Ql TRACE (no code) 08-31-2019 PENDING LOC ATION (Urine sed) 15:00-0400 [facility] ([id number]) Bilirubin 0.9 mg/dL (NEG) 0.1 - 1.2 mg/dL 08-31-2019 PENDIN G LOCATION [Mass/Vol] 14:45-0400 [facility] ([id number]) Bilirubin Ql (U) Negative (no code) 08-31-2019 PENDING L OCATION 15:00-0400 [facility] ([id number]) Calcium 9.5 mg/dL (NEG) 8.5 - 10.2 mg/dL 08-31-2019 PENDI NG LOCATION [Mass/Vol] 14:45-0400 [facility] ([id number]) Calcium 9.9 mg/dL (NEG) 8.5 - 10.2 mg/dL 08-31-2019 PENDI NG LOCATION [Mass/Vol] 14:45-0400 [facility] ([id number]) Casts LM Ql NONE (no code) 08-31-2019 PENDING LOCATI ON (Urine sed) 15:00-0400 [facility] ([id number]) Chloride 99 mmol/L (NEG) 95 - 106 mmol/L 08-31-2019 PENDIN G LOCATION [Moles/Vol] 14:45-0400 [facility] ([id number]) Clarity (U) CLEAR (no code) 08-31-2019 PENDING LOCATI ON 15:00-0400 [facility] ([id number]) CO2 [Moles/Vol] 23 mmol/L (NEG) 23 - 29 mmol/L 2020 P ENDING LOCATION 14:45-0400 [facility] ([id number]) Color (U) YELLOW (no code) 08-31-2019 PENDING LOCATI ON 15:00-0400 [facility] ([id number]) Creatinine 0.77 mg/dL (NEG) 08-31-2019 PENDING LOCATI ON [Mass/Vol] 14:45-0400 [facility] ([id number]) Creatinine and > (no code) 08-31-2019 PENDING LOC ATION Glomerular 14:45-0400 [facility] ([id number]) filtration rate.predicted panel - Serum, Plasma or Blood Crystals LM Ql NONE (no code) 08-31-2019 PENDING LOC ATION (Urine sed) 15:00-0400 [facility] ([id number]) Epithelial RARE (no code) 08-31-2019 PENDING LOCATI ON cells.squamous 15:00-0400 [facility] ([id number]) LM Ql (Urine sed) Erythrocyte 15.5 % (H) 11.6 - 14.6 % 08-31-2019 PENDIN G LOCATION distribution 14:45-0400 [facility] ([id number]) width (RBC) [Ratio] Glucose 155 mg/dL (H) 60 - 125 mg/dL 08-31-2019 PENDING LOCATION [Mass/Vol] 14:45-0400 [facility] ([id number]) Glucose Auto Negative (no code) 08-31-2019 PENDING LOCAT ION test strip Ql 15:00-0400 [facility] ([id number]) (U) Hematocrit (Bld) 26 % (L) 36.1 - 50.3 % 08-31-2019 P ENDING LOCATION [Volume 14:45-0400 [facility] ([id number]) fraction] Hemoglobin (Bld) 8.3 g/dL (L) 12.1 - 17.2 g/dL 08-31-2019 PENDING LOCATION [Mass/Vol] 14:45-0400 [facility] ([id number]) Ketones Auto Negative (no code) 08-31-2019 PENDING LOCAT ION test strip Ql 15:00-0400 [facility] ([id number]) (U) Lactate 1.40 mmol/L (NEG) 0.5 - 2.2 mmol/L 08-31-2019 PEN DING LOCATION [Moles/Vol] 14:45-0400 [facility] ([id number]) Leukocyte Negative (no code) 08-31-2019 PENDING LOCATI ON esterase Test 15:00-0400 [facility] ([id number]) strip Ql (U) MCH (RBC) 29 pg (NEG) 27 - 31 pg 08-31-2019 PENDING LOC ATION [Entitic mass] 14:45-0400 [facility] ([id number]) MCHC (RBC) 32 g/dL (NEG) 32 - 36 g/dL 08-31-2019 PENDING LOCATION [Mass/Vol] 14:45-0400 [facility] ([id number]) MCV (RBC) 93 (NEG) 08-31-2019 PENDING LOCATI ON [Entitic vol] 14:45-0400 [facility] ([id number]) Mucus Ql (Urine SMALL (A) 08-31-2019 PENDING LO CATION sed) 15:00-0400 [facility] ([id number]) Nitrite Ql (U) Negative (no code) 08-31-2019 PENDING LOC ATION 15:00-0400 [facility] ([id number]) pH (U) 7.0 [pH] (no code) 4.6 - 8 [pH] 08-31-2019 PENDING L OCATION 15:00-0400 [facility] ([id number]) Platelet mean 8.5 (NEG) 08-31-2019 PENDING LOCA TION volume (Bld) 14:45-0400 [facility] ([id number]) [Entitic vol] Platelets (Bld) 362 10*3/uL (NEG) 150 - 450 08-31-2019 PEND ING LOCATION [#/Vol] 10*3/uL 14:45-0400 [facility] ([id number]) Potassium 4.0 mmol/L (NEG) 3.7 - 5.2 mmol/L 08-31-2019 PEND ING LOCATION [Moles/Vol] 14:45-0400 [facility] ([id number]) Protein 6.5 g/dL (NEG) 6.4 - 8.3 g/dL 08-31-2019 PENDING LOCATION [Mass/Vol] 14:45-0400 [facility] ([id number]) Protein Ql (U) Negative (no code) 08-31-2019 PENDING LOC ATION 15:00-0400 [facility] ([id number]) RBC (Bld) 2.82 10*6/uL (L) 4.2 - 6.1 08-31-2019 PENDING L OCATION [#/Vol] 10*6/uL 14:45-0400 [facility] ([id number]) RBC LM.HPF NONE (no code) 08-31-2019 PENDING LOCATI ON (Urine sed) 15:00-0400 [facility] ([id number]) [#/Area] RBC Ql (U) Negative (no code) 08-31-2019 PENDING LOCATI ON 15:00-0400 [facility] ([id number]) Sodium 133 mmol/L (L) 135 - 145 mmol/L 08-31-2019 PEND ING LOCATION [Moles/Vol] 14:45-0400 [facility] ([id number]) Specific gravity 1.020 (no code) 08-31-2019 PENDING L OCATION (U) [Rel 15:00-0400 [facility] ([id number]) density] Urea nitrogen 12 mg/dL (NEG) 7 - 20 mg/dL 08-31-2019 PENDI NG LOCATION [Mass/Vol] 14:45-0400 [facility] ([id number]) Urea 16 mg/mg (no code) 6 - 22 mg/mg 08-31-2019 PENDING L OCATION nitrogen/Creatin 14:45-0400 [facility] ([id number]) ine [Mass ratio] Urinalysis NO (no code) 08-31-2019 PENDING LOCATI ON complete W 15:00-0400 [facility] ([id number]) Reflex Culture panel - Urine Urobilinogen (U) 0.2 mg/dL (no code) 08-31-2019 PENDING L OCATION [Mass/Vol] 15:00-0400 [facility] ([id number]) WBC (Bld) 12.6 10*3/uL (H) 3.5 - 10.5 08-31-2019 PENDING LOCATION [#/Vol] 10*3/uL 14:45-0400 [facility] ([id number]) WBC LM.HPF NONE (no code) 08-31-2019 PENDING LOCATI ON (Urine sed) 15:00-0400 [facility] ([id number]) [#/Area] not yet categorized on 2019-08-30 no information NAME: YADIRA FRANCES (no code) PENDING LOCAT ION K ~MED REC#: [facility] ([id number]) [id number] ~ ~PHYSICIAN: CARMINE BELTRAN ~OT Current Status-Daily Note ~Subjective ~Pt alert, sitting in recliner. Pt c/o headache, reported to nrsg, nrsg brought Tylenol. Pt agrees ~to therapy. Pt c/o fatigue. ~ ~Mental Status/Objective ~Patient Orientation: Person, Place, Time, Situation ~Attachments: IV, Other-See Comments (knee immobilizer) ~ ~ADL-Treatment ~Pt agrees to shower. Pt able to retrieve clothing using FWW, mod I. Assist to cover L LE knee ~immobilizer and IV site for shower. Pt completed shower by self using AE for safety. Pt able to ~don/doff lower body clothing with AE, SBA for safety in standing. Mod I for upper body dressing. ~Dons/doffs R sock independently, working on using sock aide to don sock and dressing stick to doff, ~assist to don/doff MICHEAL hose on L LE. Pt requires assist to don/doff immobilizer. Pt standing at ~sink to complete oral care, mod I. Pt takes increased time to complete ADLs. After session, PT ~took over care of pt. All needs met in room. ~Therapy Code Descriptions/Def initions ~ ~Functional [place] Measure: ~0=Not Assessed/NA 4=Minimal Assistance ~1=Total Assistance 5=Supervision or Setup ~2=Maximal Assistance 6=Modified [place] ~3=Moderate Assistance 7=Complete IndependenceSCAL E: Activities may be completed with or without ~assistive devices. ~ ~9-Hrzhvcaekg-wa tient completes the activity by him/herself with no assistance from a helper. ~5-Set-up or Clean-up Assistance-helpe r sets up or cleans up; patient completes activity. [place] ~assists only prior to or ~ following the activity. ~4-Supervision or Touching Assistance-helpe r provides verbal cues and/or touching/steadyi ng and/or ~contact guard assistance as patient completes activity. Assistance may be provided ~ throughout the activity or intermittently. ~3-Partial/Moder ate Assistance-helpe r does LESS THAN HALF the effort. [place] lifts, holds or supports~trunk or limbs, but provides less than half the effort. ~2-Substantial/M aximal Assistance-helpe r does MORE THAN HALF the effort. [place] lifts or holds trunk ~or limbs and provides more than half the effort. ~2-Rrejstqis-eor per does ALL the effort. Patient does [...] due to Medical Conditions or Safety Concerns. ~Oral Hygiene (QC): 6 ~Shower/Bathe Self (QC): 6 ~Upper Body Dressing (QC): 6 ~Toileting Hygiene (QC): 6 (Completes mod I.) ~Toilet Transfer (QC): 6 (Completes mod I) ~ ~OT Short Term Goals ~Short Term Goals ~Time Frame: Sep 03, 2019 ~Putting on/taking off footwear: 3 ~ ~OT Snf Goals ~Supervisor Sample Goals ~Time Frame: Sep 07, 2019 ~Eating (QC): 6 ~Oral Hygiene (QC): 6 ~Toileting Hygiene (QC): 6 ~Shower/Bathe Self (QC): 6 ~Upper Body Dressing (QC): 6 ~Lower Body Dressing (QC): 6 ~On/Off Footwear (QC): 6 ~Additional Goals: 1-Demonstrate ADL Tasks, 2-Verbalize Understanding, 3-ImproveStrengt h/Alexsandra ~1=Demonstrate adherence to instructed precautions during ADL tasks. ~2=Patient will verbalize/demons trate understanding of assistive devices/modifica tions for ADL. ~3=Patient will improve strength/toleran ce for activity to enable patient to perform ADL's. ~ ~OT Education/Plan ~Problem List/Assessment ~Assessment: Decreased Activ Tolerance, Impaired Self-Care Skills ~ ~Discharge Recommendations ~Plan/Recommenda tions: Continue POC ~ ~Treatment Plan/Plan of Care ~Patient would benefit from OT for education, treatment and training to promote independence in ~ADL's, mobility, safety and/or upper extremity function for ADL's. ~Plan of Care: ADL Retraining, Functional Mobility, UE Funct Exercise/Act ~Treatment Duration: Sep 07, 2019 ~Frequency: At least 5 of 7 days/Wk (IRF) ~Estimated Hrs Per Day: 1.5 hours per day ~Rehab Potential: Fair ~ ~Time/GCodes ~Start Time: 09:00 ~Stop Time: 10:10 ~Total Time Billed (hr/min): 70 ~Billed Treatment Time ~1 visit-ADL 5 (70 min) ~ ~ ~ ~CARMINE BELTRAN Aug 30, 2019 10:24 ~ ~ ~<Created by CARMINE SUAZO> ~<Electronically signed by CARMINE SUAZO> 08/30/19 1025 ~ ~ no information NAME: YADIRA FRANCES (no code) PENDING LOCAT ION K ~MED REC#: [facility] [id number]) [id number] ~ ~PHYSICIAN: VICENTE TORO PT ~PT Daily Note-Current ~Subjective ~Patient in recliner pre tx, agrees to PT, has 7/10 pain, nurse notified of pain. ~ ~Appearance ~Patient in recliner post tx with nurse call, phone, tray, legs elevated, all needs met. ~ ~Mental Status ~Patient Orientation: Person, Place, Situation, Normal For Age ~left leg brace ~ ~Transfers ~SCALE: Activities may be completed with or without assistive devices. ~ ~5-Hjdvgypkww-jk tient completes the activity by him/herself with no assistance from a helper. ~5-Set-up or Clean-up Assistance-helpe r sets up or cleans up; patient completes activity. [place] ~assists only prior to or ~ following the activity. ~4-Supervision or Touching Assistance-helpe r provides verbal cues and/or touching/steadyi ng and/or ~contact guard assistance as patient completes activity. Assistance may be provided ~ throughout the activity or intermittently. ~3-Partial/Moder ate Assistance-helpe r does LESS THAN HALF the effort. [place] lifts, holds or supports~trunk or limbs, but provides less than half the effort. ~2-Substantial/M aximal Assistance-helpe r does MORE THAN HALF the effort. [place] lifts or holds trunk ~or limbs and provides more than half the effort. ~0-Zdqygggcf-bwm per does ALL the effort. Patient does [...] Safety Concerns. ~Roll Left Right (QC): 6 ~Sit to Lying (QC): 3 ~Lying to Sitting/Side of Bed(Q: 6 ~Sit to Stand (QC): 4 ~Chair/Bed-to- air Xfer(QC): 4 ~ ~Weight Bearing ~Right Lower Extremity: Right ~Full Weight Bearing ~Left Lower Extremity: Left ~Weight Bearing/Tolerate d ~ ~Gait Training ~Distance: 120', 60'x2 ~Walk 10 feet (QC): 4 ~Gait Persons Needed: 1 ~Gait Assistive Device: FWW ~SBA, slow but steady ambulation ~ ~Exercises ~Supine Ex: Ankle pumps, Quad Set, Hip abd/add ~Supine Reps: 20 (Stopped at about 10 reps of quad sets due to pain, patient had been instructed to ~not perform them forcefully.) ~NuStep Minutes: 15 ~ NuStep Workload: 5 (left leg not used) ~ ~Treatments ~bed mobility and transfer training, ambulation, functional strengthening ~ ~Assessment ~Current Status: Fair Progress ~improving general mobility, pain with any quad activation. Doc had given instructions that she can ~perform QS and SLR but is brace in locked at 0 degrees ~ ~PT Short Term Goals ~Short Term Goals ~Time Frame: Sep 04, 2019 ~Roll Left Right: 6 ~Sit to lyin ~Lying to sitting on side of be: 6 ~Sit to stand: 5 ~Chair/bed-to- air transfer: 5 ~Walk 10 feet: 5 ~Walk 50 feet with two turns: 5 ~Walk 150 feet: 5 ~ ~PT Supervisor Sample Goals ~Snf Goals ~PT Snf Goals Time Frame: Sep 18, 2019 ~Roll Left Right (QC): 6 ~Sit to Lying (QC): 6 ~Lying-Sitting on Side/Bed(QC): 6 ~Sit to Stand (QC): 6 ~Chair/Bed-to- air Xfer(QC): 6 ~Toilet Transfer (QC): 6 ~Car Transfer (QC): 6 ~Does the Patient Walk: Yes ~Walk 10 feet (QC): 6 ~Walk 50ft with 2 Turns (QC): 6 ~Walk 150 ft (QC): 6 ~Walking 10ft on Uneven Surface: 6 ~1 Step (curb) (QC): 4 ~4 Steps (QC): 4 ~12 Steps (QC): 88 ~Picking up an Object (QC): 88 ~Wheel 50 feet with 2 turns (QC: 9 ~Wheel 150 feet: 9 ~ ~PT Plan ~Problem List ~Problem List: Activity Tolerance, Functional Strength, Safety, Balance, Gait, Transfer, Bed ~Mobility, ROM ~ ~Treatment/Plan ~Treatment Plan: Continue Plan of Care ~Treatment Plan: Bed Mobility, Education, Functional Activity Alexsandra, Functional Strength, Group ~Therapy, Gait, Safety, Therapeutic Exercise, Transfers ~Treatment Duration: Sep 18, 2019 ~Frequency: At least 5 of 7 days/Wk (IRF) ~Estimated Hrs Per Day: 1.5 hours per day ~Patient and/or Family Agrees t: Yes ~ ~Safety Risks/Education ~Patient Education: Gait Training, Transfer Techniques, Reviewed Precautions, Correct Positioning, ~Reviewed Don/Doff Brace (adjusted brace), Safety Issues ~Teaching Recipient: Patient ~Teaching Methods: Demonstration, Discussion ~Response to Teaching: Reinforcement Needed ~ ~Time/GCodes ~Time In: 1000 ~Time Out: 1100 ~Total Billed Treatment Time: 60 ~Total Billed Treatment ~1 visit ~GT 30' ~EX 30' ~ ~ ~ ~VICENTE TORO PT Aug 30, 2019 10:59 ~ ~ ~<Created by VICENTE TORO PT> ~<Electronically signed by VICENTE TORO PT> 08/30/19 1100 ~ ~ no information NAME: YADIRA FRANCES (no code) PENDING LOCAT ION K ~MED REC#: [facility] [id number]) [id number] ~ ~PHYSICIAN: CARMINE BELTRAN ~OT Current Status-Daily Note ~Subjective ~Pt alert, sitting in recliner. Pt agrees to therapy. No c/o pain at this time. ~ ~Mental Status/Objective ~Patient Orientation: Person, Place, Time, Situation ~Attachments: IV ~ ~ADL-Treatment ~Therapy Code Descriptions/Def initions ~ ~Functional [place] Measure: ~0=Not Assessed/NA 4=Minimal Assistance ~1=Total Assistance 5=Supervision or Setup ~2=Maximal Assistance 6=Modified [place] ~3=Moderate Assistance 7=Complete IndependenceSCAL E: Activities may be completed with or without ~assistive devices. ~ ~1-Eptntfzprd-pj tient completes the activity by him/herself with no assistance from a helper. ~5-Set-up or Clean-up Assistance-helpe r sets up or cleans up; patient completes activity. [place] ~assists only prior to or ~ following the activity. ~4-Supervision or Touching Assistance-helpe r provides verbal cues and/or touching/steadyi ng and/or ~contact guard assistance as patient completes activity. Assistance may be provided ~ throughout the activity or intermittently. ~3-Partial/Moder ate Assistance-helpe r does LESS THAN HALF the effort. [place] lifts, holds or supports~trunk or limbs, but provides less than half the effort. ~2-Substantial/M aximal Assistance-helpe r does MORE THAN HALF the effort. [place] lifts or holds trunk ~or limbs and provides more than half the effort. ~7-Cqhlxssgy-seh per does ALL the effort. Patient does [...] to Medical Conditions or Safety Concerns. ~ ~Other Treatment ~Pt educated on medium resistance theraband, given theraband and HEP. Skilled instructions for ~techniques, modifications and strategies. Pt demonstrated understanding of exercises with min cues ~for technique. 3 sets 10 exercises. After session, pt sitting in recliner with call light/phone in~reach. All needs met in room. ~ ~OT Short Term Goals ~Short Term Goals ~Time Frame: Sep 03, 2019 ~Putting on/taking off footwear: 3 ~ ~OT Supervisor Sample Goals ~Supervisor Sample Goals ~Time Frame: Sep 07, 2019 ~Eating (QC): 6 ~Oral Hygiene (QC): 6 ~Toileting Hygiene (QC): 6 ~Shower/Bathe Self (QC): 6 ~Upper Body Dressing (QC): 6 ~Lower Body Dressing (QC): 6 ~On/Off Footwear (QC): 6 ~Additional Goals: 1-Demonstrate ADL Tasks, 2-Verbalize Understanding, 3-ImproveStrengt h/Alexsandra ~1=Demonstrate adherence to instructed precautions during ADL tasks. ~2=Patient will verbalize/demons trate understanding of assistive devices/modifica tions for ADL. ~3=Patient will improve strength/toleran ce for activity to enable patient to perform ADL's. ~ ~OT Education/Plan ~Problem List/Assessment ~Assessment: Decreased Activ Tolerance, Decreased UE Strength, Impaired Self-Care Skills ~ ~Discharge Recommendations ~Plan/Recommenda tions: Continue POC ~ ~Treatment Plan/Plan of Care ~Patient would benefit from OT for education, treatment and training to promote independence in ~ADL's, mobility, safety and/or upper extremity function for ADL's. ~Plan of Care: ADL Retraining, Functional Mobility, UE Funct Exercise/Act ~Treatment Duration: Sep 07, 2019 ~Frequency: At least 5 of 7 days/Wk (IRF) ~Estimated Hrs Per Day: 1.5 hours per day ~Rehab Potential: Fair ~ ~Time/GCodes ~Start Time: 13:00 ~Stop Time: 13:30 ~Total Time Billed (hr/min): 30 ~Billed Treatment Time ~1 visit-EX 2 (30 min) ~ ~ ~ ~CARMINE BELTRAN Aug 30, 2019 13:42 ~ ~ ~<Created by CARMINE SUAZO> ~<Electronically signed by CARMINE SUAZO> 08/30/19 1342 ~ ~ no information NAME: KOKOYADIRA (no code) PENDING LOCAT ION K ~MED REC#: [facility] [id number]) [id number] ~ ~PHYSICIAN: JUAN JOSE SNYDER DO ~Subjective ~HPI/CC On Admission ~Date Seen by Provider: Aug 30, 2019 ~Time Seen by Provider: 09:30 ~Subjective/Even ts-last exam ~Pain pill is given every four hours ~Colace given for stool softener ~Incision looks good ~Bowels are moving ~IV iron infusion started for low iron and Hgb of 8.2 ~Checked meds and labs ~Conferred with RN ~Reviewed therapy notes ~ ~Review of Systems ~General: Fatigue ~Musculoskeletal : leg pain ~ ~Objective ~Exam ~Vital Signs ~ ~Vital Signs ~ ~ ~ Date Time Temp Pulse Resp B/P (MAP) Pulse Ox O2 Delivery O2 Flow Rate FiO2 ~ ~08/30/19 21:00 98 Room Air ~ ~08/30/19 17:29 36.7 98 18 123/72 (89) ~ ~Capillary Refill : Less Than 3 Seconds ~General Appearance: No Apparent Distress, WD/WN ~HEENT: PERRL/EOMI, Normal ENT Inspection, Pharynx Normal ~Neck: Full Range of Motion, Normal Inspection, Non Tender, Supple, Carotid Bruit ~Respiratory: Chest Non Tender, Lungs Clear, Normal Breath Sounds, No Accessory Muscle Use, No ~Respiratory Distress ~Cardiovascular: Regular Rate, Rhythm, No Edema, No Gallop, No JVD, No Murmur, Normal Peripheral ~Pulses ~Gastrointestina l: Normal Bowel Sounds, No Organomegaly, No Pulsatile Mass, Non Tender, Soft ~Back: Normal Inspection, No CVA Tenderness, No Vertebral Tenderness ~Extremity: Normal Capillary Refill, Normal Inspection, Normal Range of Motion (left leg in ~immobilizer), Non Tender, No Calf Tenderness, No Pedal Edema ~Neurologic/Psyc hiatric: Alert, Oriented x3, No Motor/Sensory Deficits, Normal Mood/Affect, 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 ~ ~FIM ~Transfers ~Therapy Code Descriptions/Def initions ~ ~Functional [place] Measure: ~0=Not Assessed/NA 4=Minimal Assistance ~1=Total Assistance 5=Supervision or Setup ~2=Maximal Assistance 6=Modified [place] ~3=Moderate Assistance 7=Complete IndependenceSCAL E: Activities may be completed with or without ~assistive devices. ~ ~2-Vvlxjirnsb-fi tient completes the activity by him/herself with no assistance from a helper. ~5-Set-up or Clean-up Assistance-helpe r sets up or cleans up; patient completes activity. [place] ~assists only prior to or ~ following the activity. ~4-Supervision or Touching Assistance-helpe r provides verbal cues and/or touching/steadyi ng and/or ~contact guard assistance as patient completes activity. Assistance may be provided ~ throughout the activity or intermittently. ~3-Partial/Moder ate Assistance-helpe r does LESS THAN HALF the effort. [place] lifts, holds or supports~trunk or limbs, but provides less than half the effort. ~2-Substantial/M aximal Assistance-helpe r does MORE THAN HALF the effort. [place] lifts or holds trunk ~or limbs and provides more than half the effort. ~1-Zyvttpzfp-ubd per does ALL the effort. Patient does [...] Medical Conditions or Safety Concerns. ~Roll Left to Right (QC): 6 ~Sit to Lying (QC): 3 ~Sit to Stand (QC): 4 ~Chair/Bed-to- air Xfer(QC): 5 ~Car Transfer (QC): 88 ~ ~Gait Training ~Does the Patient Walk?: Yes ~Distance: 150' x 2 ~Walk 10 feet (QC): 5 ~Walk 50 ft with 2 Turns(QC): 5 ~Walk 150 ft (QC): 5 ~Walking 10ft/uneven surface-QC: 4 ~Gait Persons Needed: 1 ~Gait Assistive Device: FWW ~ ~Wheelchair Training ~Does the Pt Use a Wheelchair?: No ~Wheel 50 ft with 2 turns (QC): 9 ~Wheel 150 ft (QC): 9 ~ ~Stair Training ~1 Step (curb) (QC): 88 ~4 Steps (QC): 88 ~12 Steps (QC): 88 ~ ~Balance ~Picking up an Object (QC): 88 ~ ~ADL-Treatment ~Eating (QC): 6 ~Oral Hygiene (QC): 6 ~Bathing Location: L Arm, R Arm, L Upper Leg, R Upper Leg, R Lower Leg (including foot), Chest, ~Abdomen, Buttocks, Perineal Area ~Shower/Bathe Self (QC): 5 ~Upper Body Dressing (QC): 6 ~Lower Body Dressing (QC): 4 ~On/Off Footwear (QC): 3 ~Toileting Hygiene (QC): 4 (SBA, pt able to manage clothing and hygiene) ~ ~Assessment/Plan ~Assessment and Plan ~Assess Plan/Chief Complaint ~Assessment: ~s/p left total knee replacement Dr Gann s/p revision due to tendon dysfunction ~HLP ~Cardiac arrhythmia ~Smoker ~Post op anemia ~ ~Plan: ~Iron infusion ~Monitor BP ~IRF protocol ~Pain meds ~BM regimen ~ ~(1) S/P total knee arthroplasty ~Status: Acute ~(2) Cardiac arrhythmia ~(3) Smoker ~(4) Quadriceps tendon rupture ~Status: Acute ~(5) Osteoarthritis of left knee ~Status: Acute ~(6) HLD (hyperlipidemia) ~Status: Chronic ~(7) HTN (hypertension) ~Status: Chronic ~(8) GERD (gastroesophagea l reflux disease) ~Status: Chronic ~ ~ ~ ~JUAN JOSE SNYDER DO Aug 30, 2019 07:06 ~ ~ ~<Created by JUAN JOSE SNYDER DO> ~<Electronically signed by JUAN JOSE SNYDER DO> 08/31/19 0639 ~ ~ no information NAME: YADIRA FRANCES (no code) PENDING LOCAT ION K ~MED REC#: [facility] [id number] ~ ~PHYSICIAN: VICENTE TORO PT ~PT Daily Note-Current ~Subjective ~Patient in recliner pre tx, agrees to PT, has unrated pain in right leg. ~ ~Appearance ~Patient in recliner post tx with nurse call, phone, tray, all needs met. ~ ~Mental Status ~Patient Orientation: Normal For Age ~leg brace ~ ~Transfers ~SCALE: Activities may be completed with or without assistive devices. ~ ~7-Uxeynlndod-uq tient completes the activity by him/herself with no assistance from a helper. ~5-Set-up or Clean-up Assistance-helpe r sets up or cleans up; patient completes activity. [place] ~assists only prior to or ~ following the activity. ~4-Supervision or Touching Assistance-helpe r provides verbal cues and/or touching/steadyi ng and/or ~contact guard assistance as patient completes activity. Assistance may be provided ~ throughout the activity or intermittently. ~3-Partial/Moder ate Assistance-helpe r does LESS THAN HALF the effort. [place] lifts, holds or supports~trunk or limbs, but provides less than half the effort. ~2-Substantial/M aximal Assistance-helpe r does MORE THAN HALF the effort. [place] lifts or holds trunk ~or limbs and provides more than half the effort. ~1-Clnjqqbkg-ejq per does ALL the effort. Patient does [...] or Safety Concerns. ~Sit to Stand (QC): 4 ~Chair/Bed-to- air Xfer(QC): 4 ~SBA ~ ~Weight Bearing ~Right Lower Extremity: Right ~Full Weight Bearing ~Left Lower Extremity: Left ~Weight Bearing/Tolerate d ~ ~Gait Training ~Distance: 120'x2 ~Walk 10 feet (QC): 4 ~Walk 50 ft with 2 Turns(QC): 4 ~Gait Persons Needed: 1 ~Gait Assistive Device: FWW ~antalgic, slow, but steady ambulation, fatigues quickly, needs rest break ~ ~Treatments ~ambulation ~ ~Assessment ~Current Status: Fair Progress ~improving ambulation ~ ~PT Short Term Goals ~Short Term Goals ~Time Frame: Sep 04, 2019 ~Roll Left Right: 6 ~Sit to lyin ~Lying to sitting on side of be: 6 ~Sit to stand: 5 ~Chair/bed-to- air transfer: 5 ~Walk 10 feet: 5 ~Walk 50 feet with two turns: 5 ~Walk 150 feet: 5 ~ ~PT Snf Goals ~Supervisor Sample Goals ~PT Supervisor Sample Goals Time Frame: Sep 18, 2019 ~Roll Left Right (QC): 6 ~Sit to Lying (QC): 6 ~Lying-Sitting on Side/Bed(QC): 6 ~Sit to Stand (QC): 6 ~Chair/Bed-to- air Xfer(QC): 6 ~Toilet Transfer (QC): 6 ~Car Transfer (QC): 6 ~Does the Patient Walk: Yes ~Walk 10 feet (QC): 6 ~Walk 50ft with 2 Turns (QC): 6 ~Walk 150 ft (QC): 6 ~Walking 10ft on Uneven Surface: 6 ~1 Step (curb) (QC): 4 ~4 Steps (QC): 4 ~12 Steps (QC): 88 ~Picking up an Object (QC): 88 ~Wheel 50 feet with 2 turns (QC: 9 ~Wheel 150 feet: 9 ~ ~PT Plan ~Problem List ~Problem List: Activity Tolerance, Functional Strength, Safety, Balance, Gait, Transfer, Bed ~Mobility, ROM ~ ~Treatment/Plan ~Treatment Plan: Continue Plan of Care ~Treatment Plan: Bed Mobility, Education, Functional Activity Alexsandra, Functional Strength, Group ~Therapy, Gait, Safety, Therapeutic Exercise, Transfers ~Treatment Duration: Sep 18, 2019 ~Frequency: At least 5 of 7 days/Wk (IRF) ~Estimated Hrs Per Day: 1.5 hours per day ~Patient and/or Family Agrees t: Yes ~ ~Safety Risks/Education ~Patient Education: Gait Training, Transfer Techniques, Correct Positioning, Safety Issues ~Teaching Recipient: Patient ~Teaching Methods: Demonstration, Discussion ~Response to Teaching: Reinforcement Needed ~ ~Time/GCodes ~Time In: 1330 ~Time Out: 1400 ~Total Billed Treatment Time: 30 ~Total Billed Treatment ~1 visit ~GT 30' ~ ~ ~ ~VICENTE TORO PT Aug 30, 2019 13:52 ~ ~ ~<Created by VICENTE TORO PT> ~<Electronically signed by VICENTE TORO PT> 08/31/19 1101 ~ ~ not yet categorized on 2019-08-29 no information NAME: ASHAMERONYADIRA (no code) PENDING LOCAT ION K ~MED REC#: [id number] ~ ~PHYSICIAN: CARMINE BELTRAN ~OT Current Status-Daily Note ~Subjective ~Pt alert, sitting in recliner. Pt agrees to therapy. Pt does not c/o pain initially, at end of ~session 6/10 pain reported to nrsg, administered pain meds. ~ ~Mental Status/Objective ~Patient Orientation: Person, Place, Time, Situation ~ ~ADL-Treatment ~Pt agrees to shower. Pt able to retrieve clothing using FWW, mod I. Assist to cover L LE knee ~immobilizer for shower. Pt completed shower by self using AE for safety. Pt able to don/doff lower~body clothing without AE, SBA for safety in standing. Mod I for upper body dressing. Dons/doffs R ~sock independently, working on using sock aide to don sock and dressing stick to doff, assist to ~don/doff MICHEAL hose on L LE. Pt able to don/doff immobilizer. Pt standing at sink to complete oral ~care, mod I. After session, PT took over care of pt. All needs met in room. ~Therapy Code Descriptions/Def initions ~ ~Functional [place] Measure: ~0=Not Assessed/NA 4=Minimal Assistance ~1=Total Assistance 5=Supervision or Setup ~2=Maximal Assistance 6=Modified [place] ~3=Moderate Assistance 7=Complete IndependenceSCAL E: Activities may be completed with or without ~assistive devices. ~ ~8-Htjxqgtjxv-al tient completes the activity by him/herself with no assistance from a helper. ~5-Set-up or Clean-up Assistance-helpe r sets up or cleans up; patient completes activity. [place] ~assists only prior to or ~ following the activity. ~4-Supervision or Touching Assistance-helpe r provides verbal cues and/or touching/steadyi ng and/or ~contact guard assistance as patient completes activity. Assistance may be provided ~ throughout the activity or intermittently. ~3-Partial/Moder ate Assistance-helpe r does LESS THAN HALF the effort. [place] lifts, holds or supports~trunk or limbs, but provides less than half the effort. ~2-Substantial/M aximal Assistance-helpe r does MORE THAN HALF the effort. [place] lifts or holds trunk ~or limbs and provides more than half the effort. ~8-Bidtdldbw-mev per does ALL the effort. Patient does [...] due to Medical Conditions or Safety Concerns. ~Oral Hygiene (QC): 6 ~Shower/Bathe Self (QC): 5 ~Upper Body Dressing (QC): 6 ~Lower Body Dressing (QC): 4 ~On/Off Footwear: 3 ~ ~OT Short Term Goals ~Short Term Goals ~Time Frame: Sep 03, 2019 ~Putting on/taking off footwear: 3 ~ ~OT Supervisor Sample Goals ~Supervisor Sample Goals ~Time Frame: Sep 07, 2019 ~Eating (QC): 6 ~Oral Hygiene (QC): 6 ~Toileting Hygiene (QC): 6 ~Shower/Bathe Self (QC): 6 ~Upper Body Dressing (QC): 6 ~Lower Body Dressing (QC): 6 ~On/Off Footwear (QC): 6 ~Additional Goals: 1-Demonstrate ADL Tasks, 2-Verbalize Understanding, 3-ImproveStrengt h/Alexsandra ~1=Demonstrate adherence to instructed precautions during ADL tasks. ~2=Patient will verbalize/demons trate understanding of assistive devices/modifica tions for ADL. ~3=Patient will improve strength/toleran ce for activity to enable patient to perform ADL's. ~ ~OT Education/Plan ~Problem List/Assessment ~Assessment: Decreased UE Strength, Impaired Self-Care Skills ~ ~Discharge Recommendations ~Plan/Recommenda tions: Continue POC ~ ~Treatment Plan/Plan of Care ~Patient would benefit from OT for education, treatment and training to promote independence in ~ADL's, mobility, safety and/or upper extremity function for ADL's. ~Plan of Care: ADL Retraining, Functional Mobility, UE Funct Exercise/Act ~Treatment Duration: Sep 07, 2019 ~Frequency: At least 5 of 7 days/Wk (IRF) ~Estimated Hrs Per Day: 1.5 hours per day ~Rehab Potential: Fair ~ ~Time/GCodes ~Start Time: 09:00 ~Stop Time: 10:00 ~Total Time Billed (hr/min): 60 ~Billed Treatment Time ~1 visit-ADL 4 (60 min) ~ ~ ~ ~CARMINE BELTRAN Aug 29, 2019 11:10 ~ ~ ~<Created by CARMINE SUAZO> ~<Electronically signed by CARMINE SUAZO> 08/29/19 1111 ~ ~ no information NAME: YADIRA FRANCES (no code) PENDING LOCAT ION K ~MED REC#: [id number] ~ ~PHYSICIAN: KUNCE,CARMINE GABRIELE ~OT Current Status-Daily Note ~Subjective ~Pt alert, sitting in recliner. Pt agrees to therapy. No c/o pain at this time. ~ ~Mental Status/Objective ~Patient Orientation: Person, Place, Time, Situation ~ ~ADL-Treatment ~Therapy Code Descriptions/Def initions ~ ~Functional [place] Measure: ~0=Not Assessed/NA 4=Minimal Assistance ~1=Total Assistance 5=Supervision or Setup ~2=Maximal Assistance 6=Modified [place] ~3=Moderate Assistance 7=Complete IndependenceSCAL E: Activities may be completed with or without ~assistive devices. ~ ~4-Mxxfextftq-bs tient completes the activity by him/herself with no assistance from a helper. ~5-Set-up or Clean-up Assistance-helpe r sets up or cleans up; patient completes activity. [place] ~assists only prior to or ~ following the activity. ~4-Supervision or Touching Assistance-helpe r provides verbal cues and/or touching/steadyi ng and/or ~contact guard assistance as patient completes activity. Assistance may be provided ~ throughout the activity or intermittently. ~3-Partial/Moder ate Assistance-helpe r does LESS THAN HALF the effort. [place] lifts, holds or supports~trunk or limbs, but provides less than half the effort. ~2-Substantial/M aximal Assistance-helpe r does MORE THAN HALF the effort. [place] lifts or holds trunk ~or limbs and provides more than half the effort. ~6-Gpjtqujhs-kwl per does ALL the effort. Patient does [...] to Medical Conditions or Safety Concerns. ~ ~Other Treatment ~Educated pt on using leg telephone diaphragm assembler to assist L LE into/out of bed. Pt demonstrated understanding and ~proficiency using leg telephone diaphragm assembler. Pt then ambulated to and from laundry, with 2 lengthy recovery ~breaks-one going and one coming back. After session, pt sitting in recliner with call light/phone ~in reach. All needs met in room. ~ ~OT Short Term Goals ~Short Term Goals ~Time Frame: Sep 03, 2019 ~Putting on/taking off footwear: 3 ~ ~OT Snf Goals ~Snf Goals ~Time Frame: Sep 07, 2019 ~Eating (QC): 6 ~Oral Hygiene (QC): 6 ~Toileting Hygiene (QC): 6 ~Shower/Bathe Self (QC): 6 ~Upper Body Dressing (QC): 6 ~Lower Body Dressing (QC): 6 ~On/Off Footwear (QC): 6 ~Additional Goals: 1-Demonstrate ADL Tasks, 2-Verbalize Understanding, 3-ImproveStrengt h/Alexsandra ~1=Demonstrate adherence to instructed precautions during ADL tasks. ~2=Patient will verbalize/demons trate understanding of assistive devices/modifica tions for ADL. ~3=Patient will improve strength/toleran ce for activity to enable patient to perform ADL's. ~ ~OT Education/Plan ~Problem List/Assessment ~Assessment: Decreased Activ Tolerance, Impaired Self-Care Skills ~ ~Discharge Recommendations ~Plan/Recommenda tions: Continue POC ~ ~Treatment Plan/Plan of Care ~Patient would benefit from OT for education, treatment and training to promote independence in ~ADL's, mobility, safety and/or upper extremity function for ADL's. ~Plan of Care: ADL Retraining, Functional Mobility, UE Funct Exercise/Act ~Treatment Duration: Sep 07, 2019 ~Frequency: At least 5 of 7 days/Wk (IRF) ~Estimated Hrs Per Day: 1.5 hours per day ~Rehab Potential: Fair ~ ~Time/GCodes ~Start Time: 13:00 ~Stop Time: 13:30 ~Total Time Billed (hr/min): 30 ~Billed Treatment Time ~1 visit-FA 2 (30 min) ~ ~ ~ ~CARMINE BELTRAN Aug 29, 2019 13:37 ~ ~ ~<Created by CARMINE SUAZO> ~<Electronically signed by CARMINE SUAZO> 08/29/19 2556 ~ ~ no information NAME: ASHAMERONYADIRA (no code) PENDING LOCAT ION K ~MED REC#: [id number]) [id number] ~ ~PHYSICIAN: AARTI SCHULTZ HAND BUFFING WHEEL FORMER ~PT Daily Note-Current ~Subjective ~Pt. up in recliner, 1st off inquires about adjusting immobilizer as it has ridden down on her ankle.~ During rx pt c/o pain at 9/10 which exacerbates while walking and is somewhat relieved by rest, ~skyler with LEs elevated in recliner ~ ~Pain ~ ~ Numeric Pain Scale: 9 ~ Location: Left ~ Location Body Site: Knee ~ Pain Description: Stabbing ~ ~Mental Status ~Patient Orientation: Normal For Age ~Attachments: Other-See Comments (knee immobilizer) ~ ~Transfers ~SCALE: Activities may be completed with or without assistive devices. ~ ~0-Tfwwajnpvd-ip tient completes the activity by him/herself with no assistance from a helper. ~5-Set-up or Clean-up Assistance-helpe r sets up or cleans up; patient completes activity. [place] ~assists only prior to or ~ following the activity. ~4-Supervision or Touching Assistance-helpe r provides verbal cues and/or touching/steadyi ng and/or ~contact guard assistance as patient completes activity. Assistance may be provided ~ throughout the activity or intermittently. ~3-Partial/Moder ate Assistance-helpe r does LESS THAN HALF the effort. [place] lifts, holds or supports~trunk or limbs, but provides less than half the effort. ~2-Substantial/M aximal Assistance-helpe r does MORE THAN HALF the effort. [place] lifts or holds trunk ~or limbs and provides more than half the effort. ~3-Mbrpkwoua-kvz per does ALL the effort. Patient does [...] due to Medical Conditions or Safety Concerns. ~sit to stand SBA ~ ~Weight Bearing ~Right Lower Extremity: Right ~Full Weight Bearing ~Left Lower Extremity: Left ~Weight Bearing/Tolerate d ~ ~Gait Training ~Does the Patient Walk?: Yes ~Gait Assistive Device: FWW ~gait 80 to 100 ft x 4 with SBA , pt. requesting to sit and rest and c/o increased pain while walking ~ ~Stair Training ~pt. had planned to attempt steps but pain as pt. attempted to wt bear on LLE to ascend with RLE ~caused pt. to abandon trial ~ ~Exercises ~Seated Therapy Exercises: Sit to stand, Long arc quads (right only), Hip flexion (right only) ~Seated Reps: 15 ~ ~Assessment ~Current Status: Good Progress ~pain continues to limit distance. ~ ~PT Short Term Goals ~Short Term Goals ~Time Frame: Sep 04, 2019 ~Roll Left Right: 6 ~Sit to lyin ~Lying to sitting on side of be: 6 ~Sit to stand: 5 ~Chair/bed-to-ch air transfer: 5 ~Walk 10 feet: 5 ~Walk 50 feet with two turns: 5 ~Walk 150 feet: 5 ~ ~PT Snf Goals ~Snf Goals ~PT Snf Goals Time Frame: Sep 18, 2019 ~Roll Left Right (QC): 6 ~Sit to Lying (QC): 6 ~Lying-Sitting on Side/Bed(QC): 6 ~Sit to Stand (QC): 6 ~Chair/Bed-to-Ch air Xfer(QC): 6 ~Toilet Transfer (QC): 6 ~Car Transfer (QC): 6 ~Does the Patient Walk: Yes ~Walk 10 feet (QC): 6 ~Walk 50ft with 2 Turns (QC): 6 ~Walk 150 ft (QC): 6 ~Walking 10ft on Uneven Surface: 6 ~1 Step (curb) (QC): 4 ~4 Steps (QC): 4 ~12 Steps (QC): 88 ~Picking up an Object (QC): 88 ~Wheel 50 feet with 2 turns (QC: 9 ~Wheel 150 feet: 9 ~ ~PT Plan ~Treatment/Plan ~Treatment Plan: Continue Plan of Care ~Treatment Plan: Bed Mobility, Education, Functional Activity Alexsandra, Functional Strength, Group ~Therapy, Gait, Safety, Therapeutic Exercise, Transfers ~Treatment Duration: Sep 18, 2019 ~Frequency: At least 5 of 7 days/Wk (IRF) ~Estimated Hrs Per Day: 1.5 hours per day ~Patient and/or Family Agrees t: Yes ~ ~Safety Risks/Education ~Patient Education: Gait Training, Transfer Techniques, Correct Positioning, Disease Process, Safety~Issues ~Teaching Recipient: Patient ~Teaching Methods: Demonstration, Discussion ~Response to Teaching: Verbalize Understanding, Return Demonstration ~ ~Time/GCodes ~Time In: 1330 ~Time Out: 1400 ~Total Billed Treatment Time: 30 ~Total Billed Treatment ~1,GT30m ~ ~ ~ ~AARTI SCHULTZ PTA Aug 29, 2019 14:18 ~ ~ ~<Created by AARTI SCHUTLZ HAND BUFFING WHEEL FORMER> ~<Electronically signed by AARTI SCHULTZ HAND BUFFING WHEEL FORMER> 08/29/19 1425 ~ ~ no information NAME: YADIRA FRANCES (no code) PENDING LOCAT ION K ~MED REC#: [id number]) [id number] ~ ~PHYSICIAN: JUAN JOSE SNYDER DO ~Subjective ~HPI/CC On Admission ~Date Seen by Provider: Aug 29, 2019 ~Time Seen by Provider: 09:15 ~Subjective/Even ts-last exam ~Pt doing pretty well ~Bowels are moving now ~Pain is pretty well controlled ~Slept on and off last night ~No chest pain or SOB ~No wheezing noted on exam ~Checked meds and labs ~Conferred with RN ~Reviewed therapy notes ~ ~Review of Systems ~Musculoskeletal : leg pain ~ ~Objective ~Exam ~Vital Signs ~ ~Vital Signs ~ ~ ~ Date Time Temp Pulse Resp B/P (MAP) Pulse Ox O2 Delivery O2 Flow Rate FiO2 ~ ~08/29/19 17:48 37.6 111 18 123/75 (91) 100 Room Air ~ ~Capillary Refill : Less Than 3 Seconds ~General Appearance: No Apparent Distress, WD/WN ~HEENT: PERRL/EOMI, Normal ENT Inspection, Pharynx Normal ~Neck: Full Range of Motion, Normal Inspection, Non Tender, Supple, Carotid Bruit ~Respiratory: Chest Non Tender, Lungs Clear, Normal Breath Sounds, No Accessory Muscle Use, No ~Respiratory Distress ~Cardiovascular: Regular Rate, Rhythm, No Edema, No Gallop, No JVD, No Murmur, Normal Peripheral ~Pulses ~Gastrointestina l: Normal Bowel Sounds, No Organomegaly, No Pulsatile Mass, Non Tender, Soft ~Back: Normal Inspection, No CVA Tenderness, No Vertebral Tenderness ~Extremity: Normal Capillary Refill, Normal Inspection, Normal Range of Motion (left leg in ~immobilizer), Non Tender, No Calf Tenderness, No Pedal Edema ~Neurologic/Psyc hiatric: Alert, Oriented x3, No Motor/Sensory Deficits, Normal Mood/Affect, children's entertainer II-~XII Norm as Tested, Abnormal Gait ~Skin: Normal Color, Warm/Dry ~Lymphatic: No Adenopathy ~ ~Results/Procedu res ~Lab ~Laboratory Tests ~08/29/19 04:42 ~ ~ ~Patient resulted labs reviewed. ~ ~FIM ~Transfers ~Therapy Code Descriptions/Def initions ~ ~Functional [place] Measure: ~0=Not Assessed/NA 4=Minimal Assistance ~1=Total Assistance 5=Supervision or Setup ~2=Maximal Assistance 6=Modified [place] ~3=Moderate Assistance 7=Complete IndependenceSCAL E: Activities may be completed with or without ~assistive devices. ~ ~1-Tkmyckxbbq-hy tient completes the activity by him/herself with no assistance from a helper. ~5-Set-up or Clean-up Assistance-helpe r sets up or cleans up; patient completes activity. [place] ~assists only prior to or ~ following the activity. ~4-Supervision or Touching Assistance-helpe r provides verbal cues and/or touching/steadyi ng and/or ~contact guard assistance as patient completes activity. Assistance may be provided ~ throughout the activity or intermittently. ~3-Partial/Moder ate Assistance-helpe r does LESS THAN HALF the effort. [place] lifts, holds or supports~trunk or limbs, but provides less than half the effort. ~2-Substantial/M aximal Assistance-helpe r does MORE THAN HALF the effort. [place] lifts or holds trunk ~or limbs and provides more than half the effort. ~0-Dpnaxhzzb-rum per does ALL the effort. Patient does [...] Medical Conditions or Safety Concerns. ~Roll Left to Right (QC): 6 ~Sit to Lying (QC): 3 ~Sit to Stand (QC): 6 ~Chair/Bed-to- air Xfer(QC): 4 ~Car Transfer (QC): 88 ~ ~Gait Training ~Does the Patient Walk?: Yes ~Distance: 150' x 2 ~Walk 10 feet (QC): 6 ~Walk 50 ft with 2 Turns(QC): 6 ~Walk 150 ft (QC): 6 ~Walking 10ft/uneven surface-QC: 4 ~Gait Assistive Device: FWW ~ ~Wheelchair Training ~Does the Pt Use a Wheelchair?: No ~Wheel 50 ft with 2 turns (QC): 9 ~Wheel 150 ft (QC): 9 ~ ~Stair Training ~1 Step (curb) (QC): 88 ~4 Steps (QC): 88 ~12 Steps (QC): 88 ~ ~Balance ~Picking up an Object (QC): 88 ~ ~ADL-Treatment ~Eating (QC): 6 ~Oral Hygiene (QC): 5 (set up at tray table) ~Bathing Location: L Arm, R Arm, L Upper Leg, R Upper Leg, R Lower Leg (including foot), Chest, ~Abdomen, Buttocks, Perineal Area ~Shower/Bathe Self (QC): 3 ([facility] required assistance with L ~upper/lower leg foot.) ~Upper Body Dressing (QC): 5 (set up) ~Lower Body Dressing (QC): 3 (SBA during stand. Pt able to don/doff pants/underwear over knee ~immobilizer using AE. Min A with donning/doffing knee immobilizer during sponge bath.) ~On/Off Footwear (QC): 2 (PT able to don/doff sock on RLE. OT dependently doned/doffed TedHOSE BLEs ~ assisted with donning/doffing L sock) ~Toileting Hygiene (QC): 4 (SBA, pt able to manage clothing and hygiene) ~ ~Assessment/Plan ~Assessment and Plan ~Assess Plan/Chief Complaint ~Assessment: ~s/p left total knee replacement Dr Gann s/p revision due to tendon dysfunction ~HLP ~Cardiac arrhythmia ~Smoker ~Post op anemia ~ ~Plan: ~Iron level ~Monitor BP ~IRF protocol ~Pain meds ~BM regimen ~ ~(1) S/P total knee arthroplasty ~Status: Acute ~(2) Cardiac arrhythmia ~(3) Smoker ~(4) Quadriceps tendon rupture ~Status: Acute ~(5) Osteoarthritis of left knee ~Status: Acute ~(6) HLD (hyperlipidemia) ~Status: Chronic ~(7) HTN (hypertension) ~Status: Chronic ~(8) GERD (gastroesophagea l reflux disease) ~Status: Chronic ~ ~ ~ ~JUAN JOSE SNYDER DO Aug 29, 2019 09:15 ~ ~ ~<Created by JUAN JOSE Herr SNYDER > ~<Electronically signed by JUAN JOSE S CLAUDIO LEMOS> 08/29/192037 ~ ~ no information NAME: KOKOYADIRA (no code) PENDING LOCAT ION K ~MED REC#: [id number]) [id number] ~ ~PHYSICIAN: AARTI SCHULTZ HAND BUFFING WHEEL FORMER ~PT Daily Note-Current ~Subjective ~Pt. agrees to Rx. Explains that she would like to be up ad lesia but is patient given she cannot ~independently get in out bed etc. During rx pt. c/o pain 10/10 with exercises then 6/10 after ex ~during gait then even lower at 2/10 in recliner resting ~ ~Pain ~ ~ Numeric Pain Scale: 10-Worst Possible Pain ~ Location: Left ~ Location Body Site: Knee ~ Pain Description: Stabbing ~ ~Mental Status ~Patient Orientation: Normal For Age ~Attachments: Other-See Comments (left knee immoblizer) ~ ~Transfers ~SCALE: Activities may be completed with or without assistive devices. ~ ~3-Bosrvaqyup-cb tient completes the activity by him/herself with no assistance from a helper. ~5-Set-up or Clean-up Assistance-helpe r sets up or cleans up; patient completes activity. [place] ~assists only prior to or ~ following the activity. ~4-Supervision or Touching Assistance-helpe r provides verbal cues and/or touching/steadyi ng and/or ~contact guard assistance as patient completes activity. Assistance may be provided ~ throughout the activity or intermittently. ~3-Partial/Moder ate Assistance-helpe r does LESS THAN HALF the effort. [place] lifts, holds or supports~trunk or limbs, but provides less than half the effort. ~2-Substantial/M aximal Assistance-helpe r does MORE THAN HALF the effort. [place] lifts or holds trunk ~or limbs and provides more than half the effort. ~6-Iogesjirr-yae per does ALL the effort. Patient does [...] Safety Concerns. ~Roll Left Right (QC): 6 ~Sit to Lying (QC): 3 ~Lying to Sitting/Side of Bed(Q: 4 ~Sit to Stand (QC): 4 ~Chair/Bed-to-Ch air Xfer(QC): 5 ~pt. needs assist with LLE during sup to sit and sit to sup ~ ~Weight Bearing ~Right Lower Extremity: Right ~Full Weight Bearing ~Left Lower Extremity: Left ~Weight Bearing/Tolerate d ~ ~Gait Training ~Does the Patient Walk?: Yes ~Walk 10 feet (QC): 5 ~Walk 50 ft with 2 Turns(QC): 5 ~Walk 150 ft (QC): 5 ~Gait Persons Needed: 1 ~Gait Assistive Device: FWW ~SBA slow, careful, moderate weight bearing on device, pt. needed rest breaks at about 80 ft x 5 ~trials ~ ~Exercises ~Supine Ex: Ankle pumps, Quad Set, Rolling, Glut sets, Heel Slides (right only), Short Arc Quads ~(right only), Straight leg raise (indep right , mod assist left), Hip abd/add (assist left only) ~Supine Reps: 15 (3 sets 5) ~Seated Therapy Exercises: Ankle pumps, Sit to stand, Long arc quads (right only), Hip flexion ~(right only) ~Seated Reps: 15 ~ ~Treatments ~Merritt Self RPT was consulted to clear SLR on LLE. Dr Gann was contacted and cleared this with ~stipulation that knee immobilizer is locked out at 0 for SLR. Pt. needed mod assist and did only 5 ~reps of this , then immobilizer was moved back to 0-30 degrees and locked again ~ ~Assessment ~Current Status: Good Progress ~the idea of up ad lesia was mentioned but pt. continues dependent for safe in out bed and with OI Dx ~and quadriceps issue this HAND BUFFING WHEEL FORMER feels it is prudent to have pt. continue with SBA to CGA for all ~mobility ~ ~PT Short Term Goals ~Short Term Goals ~Time Frame: Sep 04, 2019 ~Roll Left Right: 6 ~Sit to lyin ~Lying to sitting on side of be: 6 ~Sit to stand: 5 ~Chair/bed-to-ch air transfer: 5 ~Walk 10 feet: 5 ~Walk 50 feet with two turns: 5 ~Walk 150 feet: 5 ~ ~PT Supervisor Sample Goals ~Supervisor Sample Goals ~PT Supervisor Sample Goals Time Frame: Sep 18, 2019 ~Roll Left Right (QC): 6 ~Sit to Lying (QC): 6 ~Lying-Sitting on Side/Bed(QC): 6 ~Sit to Stand (QC): 6 ~Chair/Bed-to-Ch air Xfer(QC): 6 ~Toilet Transfer (QC): 6 ~Car Transfer (QC): 6 ~Does the Patient Walk: Yes ~Walk 10 feet (QC): 6 ~Walk 50ft with 2 Turns (QC): 6 ~Walk 150 ft (QC): 6 ~Walking 10ft on Uneven Surface: 6 ~1 Step (curb) (QC): 4 ~4 Steps (QC): 4 ~12 Steps (QC): 88 ~Picking up an Object (QC): 88 ~Wheel 50 feet with 2 turns (QC: 9 ~Wheel 150 feet: 9 ~ ~PT Plan ~Treatment/Plan ~Treatment Plan: Continue Plan of Care ~Treatment Plan: Bed Mobility, Education, Functional Activity Alexsandra, Functional Strength, Group ~Therapy, Gait, Safety, Therapeutic Exercise, Transfers ~Treatment Duration: Sep 18, 2019 ~Frequency: At least 5 of 7 days/Wk (IRF) ~Estimated Hrs Per Day: 1.5 hours per day ~Patient and/or Family Agrees t: Yes ~ ~Safety Risks/Education ~Patient Education: Gait Training, Transfer Techniques, Correct Positioning, Reviewed Don/Doff Brace~(needs assist), Disease Process, Safety Issues ~Teaching Recipient: Patient ~Teaching Methods: Demonstration, Discussion ~Response to Teaching: Verbalize Understanding, Return Demonstration, Reinforcement Needed ~ ~Time/GCodes ~Time In: 1010 ~Time Out: 1110 ~Total Billed Treatment Time: 60 ~Total Billed Treatment ~1,EX30m,GT15m,F A15m ~ ~ ~ ~AARTI SCHULTZ HAND BUFFING WHEEL FORMER Aug 29, 2019 11:22 ~ ~ ~<Created by AARTI SCHULTZ [employer] BU[employer] FORMER> ~<Electronically signed by AARTI SCHULTZ [employer] BU[employer] FORMER> 08/29/19 1129 ~ ~ laboratory on 2019-08-29 Albumin 3.4 g/dL (NEG) 3.4 - 5.4 g/dL 08-29-2019 PENDING LOCATION [Mass/Vol] 00:42-0400 [facility] ([id number]) ALP [Catalytic 107 U/L (NEG) 44 - 147 U/L 08-29-2019 PEND ING LOCATION activity/Vol] 00:42-0400 [facility] (62689) ALT [Catalytic 66 U/L (H) 4 - 40 U/L 08-29-2019 PENDIN G LOCATION activity/Vol] 00:42-0400 [facility] (52815) Anion gap 11 mmol/L (NEG) 3 - 11 mmol/L 08-29-2019 PENDING LOCATION [Moles/Vol] 00:42-0400 [facility] ([id number]) AST [Catalytic 61 U/L (H) 10 - 34 U/L 08-29-2019 PENDI NG LOCATION activity/Vol] 00:42-0400 [facility] ([id number]) Basophils (Bld) 0.0 10*3/uL (NEG) 0 - 0.3 10*3/uL 08-29-2019 PENDING LOCATION [#/Vol] 00:42-0400 [facility] ([id number]) Basophils/100 0 % (NEG) 0.5 - 1 % 08-29-2019 PENDING LOCATION WBC (Bld) 00:42-0400 [facility] ([id number]) Bilirubin 0.9 mg/dL (NEG) 0.1 - 1.2 mg/dL 08-29-2019 PENDIN G LOCATION [Mass/Vol] 00:42-0400 [facility] ([id number]) Calcium 9.0 mg/dL (NEG) 8.5 - 10.2 mg/dL 08-29-2019 PENDI NG LOCATION [Mass/Vol] 00:42-0400 [facility] ([id number]) Calcium 9.5 mg/dL (NEG) 8.5 - 10.2 mg/dL [facility] ([id number]) Chloride 104 mmol/L (NEG) 95 - 106 mmol/L 08-29-2019 PENDI LOCATION [Moles/Vol] 00:42-0400 [facility] (03421) CO2 [Moles/Vol] 22 mmol/L (NEG) 23 - 29 mmol/L 08-29-2019 P ENDING LOCATION 00:42-0400 [facility] ([id number]) Creatinine 0.66 mg/dL (NEG) 08-29-2019 PENDING LOCATI ON [Mass/Vol] 00:42-0400 [facility] (10826) Creatinine and > (no code) 08-29-2019 PENDING LOC ATION Glomerular 00:42-0400 [facility] (90015) filtration rate.predicted panel - Serum, Plasma or Blood Eosinophils 0.2 10*3/uL (NEG) 0.05 - 0.5 08-29-2019 PENDING LOCATION (Bld) [#/Vol] 10*3/uL 00:42-0400 [facility] ([id number]) Eosinophils/100 2 % (NEG) 1 - 4 % 08-29-2019 [facility] LOCATION WBC (Bld) 00:42-0400 [facility] ([id number]) Erythrocyte 14.7 % (H) 11.6 - 14.6 % 08-29-2019 [facility] LOCATION distribution 00:42-0400 [facility] ([id number]) width (RBC) [Ratio] Glucose 105 mg/dL (NEG) 60 - 125 mg/dL 08-29-2019 PENDING LOCATION [Mass/Vol] 00:42-0400 [facility] (75149) Hematocrit (Bld) 26 % (L) 36.1 - 50.3 % 08-29-2019 P ENDING LOCATION [Volume 00:42-0400 [facility] (60184) fraction] Hemoglobin (Bld) 8.2 g/dL (L) 12.1 - 17.2 g/dL 08-29-2019 PENDING LOCATION [Mass/Vol] 00:42-0400 [facility] (27683) Iron [Mass/Vol] 27 (L) 08-29-2019 PENDING LO CATION 00:42-0400 [facility] (85511) Lymphocytes 1.7 10*3/uL (NEG) 0.9 - 2.9 08-29-2019 PENDING LOCATION (Bld) [#/Vol] 10*3/uL 00:42-0400 [facility] ([id number]) Lymphocytes/100 20 % (NEG) 20 - 40 % 08-29-2019 PENDIN G LOCATION WBC (Bld) 00:42-0400 [facility] (73357) MCH (RBC) 30 pg (NEG) 27 - 31 pg 08-29-2019 PENDING LOC ATION [Entitic mass] 00:42-0400 [facility] ([id number]) MCHC (RBC) 32 g/dL (NEG) 32 - 36 g/dL 08-29-2019 PENDING LOCATION [Mass/Vol] 00:42-0400 [facility] ([id number]) MCV (RBC) 92 (NEG) 08-29-2019 PENDING LOCATI ON [Entitic vol] 00:42-0400 [facility] ([id number]) Monocytes (Bld) 1.5 10*3/uL (H) 0.3 - 0.9 08-29-2019 PEND ING LOCATION [#/Vol] 10*3/uL 00:42-0400 [facility] (58099) Monocytes/100 18 % (H) 2 - 8 % 08-29-2019 PENDING LOCATION WBC (Bld) 00:42-0400 [facility] (49088) Neutrophils 4.8 10*3/uL (NEG) 1.7 - 7 10*3/uL 08-29-2019 [facility] LOCATION (Bld) [#/Vol] 00:42-0400 [facility] (09383) Neutrophils/100 59 % (NEG) 40 - 60 % 08-29-2019 PENDIN G LOCATION WBC (Bld) 00:42-0400 [facility] (92946) Platelet mean 9.1 (NEG) 08-29-2019 PENDING LOCA TION volume (Bld) 00:42-0400 [facility] (68809) [Entitic vol] Platelets (Bld) 268 10*3/uL (NEG) 150 - 450 08-29-2019 PEND ING LOCATION [#/Vol] 10*3/uL 00:42-0400 [facility] (65565) Potassium 4.0 mmol/L (NEG) 3.7 - 5.2 mmol/L 08-29-2019 PEND ING LOCATION [Moles/Vol] 00:42-0400 [facility] (83095) Protein 6.5 g/dL (NEG) 6.4 - 8.3 g/dL 08-29-2019 PENDING LOCATION [Mass/Vol] 00:42-0400 [facility] (55501) RBC (Bld) 2.78 10*6/uL (L) 4.2 - 6.1 08-29-2019 PENDING L OCATION [#/Vol] 10*6/uL 00:42-0400 [facility] (43797) Sodium 137 mmol/L (NEG) 135 - 145 mmol/L 08-29-2019 PEND ING LOCATION [Moles/Vol] 00:42-0400 [facility] (99851) Urea nitrogen 11 mg/dL (NEG) 7 - 20 mg/dL 08-29-2019 PENDI NG LOCATION [Mass/Vol] 00:420400 [facility] (63205) Urea 17 mg/mg (no code) 6 - 22 mg/mg 08-29-2019 PENDING L OCATION nitrogen/Creatin 00:420400 [facility] (88550) ine [Mass ratio] WBC (Bld) 8.1 10*3/uL (NEG) 3.5 - 10.5 08-29-2019 PENDING L OCATION [#/Vol] 10*3/uL 00:42-0400 [facility] (88733) not yet categorized on 2019-08-28 no information NAME: YADIRA FRANCES (no code) PENDING LOCAT ION K ~MED REC#: [facility] ([id number]) [id number] ~ ~PHYSICIAN: HOLDEN MANCIA ON OT ~OT Current Status-Daily Note ~Subjective ~Pt seated in recliner, agreeable to OT tx. She verbalized pain in L knee at 4/5 pain. ~ ~Mental Status/Objective ~Patient Orientation: Normal For Age ~Attachments: Knee Immobilizer ~ ~ADL-Treatment ~Therapy Code Descriptions/Def initions ~ ~Functional [place] Measure: ~0=Not Assessed/NA 4=Minimal Assistance ~1=Total Assistance 5=Supervision or Setup ~2=Maximal Assistance 6=Modified [place] ~3=Moderate Assistance 7=Complete IndependenceSCAL E: Activities may be completed with or without ~assistive devices. ~ ~1-Udqxpzoefo-th tient completes the activity by him/herself with no assistance from a helper. ~5-Set-up or Clean-up Assistance-helpe r sets up or cleans up; patient completes activity. [place] ~assists only prior to or ~ following the activity. ~4-Supervision or Touching Assistance-helpe r provides verbal cues and/or touching/steadyi ng and/or ~contact guard assistance as patient completes activity. Assistance may be provided ~ throughout the activity or intermittently. ~3-Partial/Moder ate Assistance-helpe r does LESS THAN HALF the effort. [place] lifts, holds or supports~trunk or limbs, but provides less than half the effort. ~2-Substantial/M aximal Assistance-helpe r does MORE THAN HALF the effort. [place] lifts or holds trunk ~or limbs and provides more than half the effort. ~2-Qlhxxdxqs-vkr per does ALL the effort. Patient does [...] due to Medical Conditions or Safety Concerns. ~Eating (QC): 6 ~Bathing Location: L Arm, R Arm, L Upper Leg, R Upper Leg, R Lower Leg (including foot), Chest, ~Abdomen, Buttocks, Perineal Area ~Shower/Bathe Self (QC): 3 (Pt completed sponge bath at [facility], required assistance with L ~upper/lower leg foot.) ~Upper Body Dressing (QC): 5 (set up) ~Lower Body Dressing (QC): 3 (SBA during stand. Pt able to don/doff pants/underwear over knee ~immobilizer using AE. Min A with donning/doffing knee immobilizer during sponge bath.) ~On/Off Footwear: 2 (PT able to don/doff sock on RLE. OT dependently doned/doffed TedHOSE BLEs ~assisted with donning/doffing L sock) ~ ~Other Treatment ~Pt seated in recliner, agreeable to OT tx. Pt completed sponge bath at recliner. OT assisted pt with~doffing knee immobilizer in order to wash LLE. OT then assisted with donning knee immobilizer, then ~pt completed dressing. Post OT tx, pt seated in recliner, call light in reach and all needs met. ~ ~Education ~OT Patient Education: Correct positioning, Energy conservation, Modified ADL techniques, Progress ~toward Goal/Update tx plan, Purpose of tx/functional activities, Use of adapted equipment ~Teaching Recipient: Patient ~Teaching Methods: Discussion ~Response to Teaching: Verbalize Understanding ~ ~OT Short Term Goals ~Short Term Goals ~Time Frame: Sep 03, 2019 ~Putting on/taking off footwear: 3 ~ ~OT Supervisor Sample Goals ~Snf Goals ~Time Frame: Sep 07, 2019 ~Eating (QC): 6 ~Oral Hygiene (QC): 6 ~Toileting Hygiene (QC): 6 ~Shower/Bathe Self (QC): 6 ~Upper Body Dressing (QC): 6 ~Lower Body Dressing (QC): 6 ~On/Off Footwear (QC): 6 ~Additional Goals: 1-Demonstrate ADL Tasks, 2-Verbalize Understanding, 3-ImproveStrengt h/Alexsandra ~1=Demonstrate adherence to instructed precautions during ADL tasks. ~2=Patient will verbalize/demons trate understanding of assistive devices/modifica tions for ADL. ~3=Patient will improve strength/toleran ce for activity to enable patient to perform ADL's. ~ ~OT Education/Plan ~Problem List/Assessment ~Assessment: Decreased Activ Tolerance, Decreased UE Strength, Impaired I ADL's, Impaired Self-Care ~Skills ~ ~Discharge Recommendations ~Plan/Recommenda tions: Continue POC ~ ~Treatment Plan/Plan of Care ~Patient would benefit from OT for education, treatment and training to promote independence in ~ADL's, mobility, safety and/or upper extremity function for ADL's. ~Plan of Care: ADL Retraining, Functional Mobility, UE Funct Exercise/Act ~Treatment Duration: Sep 07, 2019 ~Frequency: At least 5 of 7 days/Wk (IRF) ~Estimated Hrs Per Day: 1.5 hours per day ~Rehab Potential: Fair ~ ~Time/GCodes ~Start Time: 13:00 ~Stop Time: 13:50 ~Total Time Billed (hr/min): 50 ~Billed Treatment Time ~1, ADL 3 ~ ~ ~ ~AMADO MANCIA OT Aug 28, 2019 14:15 ~ ~ ~<Created by LUISA MANCIA OT> ~<Electronically signed by LUISA MANCIA OT> 08/28/19 1415 ~ ~ no information NAME: YADIRA FRANCES (no code) PENDING LOCAT ION K ~MED REC#: [facility] [id number]) [id number] ~ ~PHYSICIAN: WILVER GRIMM PT ~PT Daily Note-Current ~Subjective ~Patient agrees to PT. No c/o at this time. ~ ~Pain ~ ~ Numeric Pain Scale: 3 ~ Location: Left ~ Location Body Site: Knee ~ Pain Description: Acute ~ ~Mental Status ~Patient Orientation: Normal For Age ~ ~Transfers ~SCALE: Activities may be completed with or without assistive devices. ~ ~4-Rouqzuyiuu-ex tient completes the activity by him/herself with no assistance from a helper. ~5-Set-up or Clean-up Assistance-helpe r sets up or cleans up; patient completes activity. [place] ~assists only prior to or ~ following the activity. ~4-Supervision or Touching Assistance-helpe r provides verbal cues and/or touching/steadyi ng and/or ~contact guard assistance as patient completes activity. Assistance may be provided ~ throughout the activity or intermittently. ~3-Partial/Moder ate Assistance-helpe r does LESS THAN HALF the effort. [place] lifts, holds or supports~trunk or limbs, but provides less than half the effort. ~2-Substantial/M aximal Assistance-helpe r does MORE THAN HALF the effort. [place] lifts or holds trunk ~or limbs and provides more than half the effort. ~1-Ncbemrcws-mbh per does ALL the effort. Patient does [...] or Safety Concerns. ~Sit to Stand (QC): 6 ~ ~Weight Bearing ~Right Lower Extremity: Right ~Full Weight Bearing ~Left Lower Extremity: Left ~Weight Bearing/Tolerate d ~ ~Gait Training ~Does the Patient Walk?: Yes ~Distance: 150' x 2 ~Walk 10 feet (QC): 6 ~Walk 50 ft with 2 Turns(QC): 6 ~Walk 150 ft (QC): 6 ~Gait Assistive Device: FWW ~trunk flexed posture with gait in FWW/repositioned knee immobilizer for appropriate placement ~ ~Exercises ~Supine Ex: Ankle pumps, Quad Set ~Supine Reps: 15 ~ ~Assessment ~Patient improving with treatment plan and has decreased c/o left LE pain. PT to increase activity ~as tolerated by patient. ~ ~PT Short Term Goals ~Short Term Goals ~Time Frame: Sep 04, 2019 ~Roll Left Right: 6 ~Sit to lyin ~Lying to sitting on side of be: 6 ~Sit to stand: 5 ~Chair/bed-to- air transfer: 5 ~Walk 10 feet: 5 ~Walk 50 feet with two turns: 5 ~Walk 150 feet: 5 ~ ~PT Supervisor Sample Goals ~Snf Goals ~PT Snf Goals Time Frame: Sep 18, 2019 ~Roll Left Right (QC): 6 ~Sit to Lying (QC): 6 ~Lying-Sitting on Side/Bed(QC): 6 ~Sit to Stand (QC): 6 ~Chair/Bed-to- air Xfer(QC): 6 ~Toilet Transfer (QC): 6 ~Car Transfer (QC): 6 ~Does the Patient Walk: Yes ~Walk 10 feet (QC): 6 ~Walk 50ft with 2 Turns (QC): 6 ~Walk 150 ft (QC): 6 ~Walking 10ft on Uneven Surface: 6 ~1 Step (curb) (QC): 4 ~4 Steps (QC): 4 ~12 Steps (QC): 88 ~Picking up an Object (QC): 88 ~Wheel 50 feet with 2 turns (QC: 9 ~Wheel 150 feet: 9 ~ ~PT Plan ~Treatment/Plan ~Treatment Plan: Continue Plan of Care ~Treatment Plan: Bed Mobility, Education, Functional Activity Alexsandra, Functional Strength, Group ~Therapy, Gait, Safety, Therapeutic Exercise, Transfers ~Treatment Duration: Sep 18, 2019 ~Frequency: At least 5 of 7 days/Wk (IRF) ~Estimated Hrs Per Day: 1.5 hours per day ~Patient and/or Family Agrees t: Yes ~ ~Time/GCodes ~Time In: 1405 ~Time Out: 1420 ~Total Billed Treatment Time: 15 ~Total Billed Treatment ~1 visit ~FA 15 min ~ ~ ~ ~WILVER GRIMM PT Aug 28, 2019 14:25 ~ ~ ~<Created by WILVER GRIMM PT> ~<Electronically signed by WILVER GRIMM PT> 08/28/19 1425 ~ ~ laboratory on 2019-08-28 Creatinine 0.63 mg/dL (NEG) 08-28-2019 PENDING LOCATI ON [Mass/Vol] 04:00-0400 [facility] ([id number]) not yet categorized on 2019-08-27 no information NAME: KOKOYADIRA (no code) PENDING LOCAT ION K ~MED REC#: [facility] ([id number]) [id number] ~ ~PHYSICIAN: CARMINE BELTRAN ~OT Current Status-Daily Note ~Subjective ~Pt alert, sitting in recliner. Pt agrees to therapy. No c/o pain. ~ ~Mental Status/Objective ~Patient Orientation: Person, Place, Time, Situation ~ ~ADL-Treatment ~Pt up ad lesia in room. Pt taking self to bathroom using FWW then completed toilet transfer and ~hygiene, mod I. Per pt, pt was set up by nrsg then pt completed shower by self. BECERRA educated pt ~on lower body dressing equipment for donning/doffing socks. Pt stated and described how to don/doff~pants and knee immobilizer. Pt has walk-in shower at home and described set up at home. After ~session, pt left in care of PT. Call light/phone in reach. All needs met in room. ~Therapy Code Descriptions/Def initions ~ ~Functional [place] Measure: ~0=Not Assessed/NA 4=Minimal Assistance ~1=Total Assistance 5=Supervision or Setup ~2=Maximal Assistance 6=Modified [place] ~3=Moderate Assistance 7=Complete IndependenceSCAL E: Activities may be completed with or without ~assistive devices. ~ ~8-Hkuskckknl-ig tient completes the activity by him/herself with no assistance from a helper. ~5-Set-up or Clean-up Assistance-helpe r sets up or cleans up; patient completes activity. [place] ~assists only prior to or ~ following the activity. ~4-Supervision or Touching Assistance-helpe r provides verbal cues and/or touching/steadyi ng and/or ~contact guard assistance as patient completes activity. Assistance may be provided ~ throughout the activity or intermittently. ~3-Partial/Moder ate Assistance-helpe r does LESS THAN HALF the effort. [place] lifts, holds or supports~trunk or limbs, but provides less than half the effort. ~2-Substantial/M aximal Assistance-helpe r does MORE THAN HALF the effort. [place] lifts or holds trunk ~or limbs and provides more than half the effort. ~7-Rvraoddey-jri per does ALL the effort. Patient does [...] due to Medical Conditions or Safety Concerns. ~Shower/Bathe Self (QC): 5 (per report) ~Upper Body Dressing (QC): 5 (per report) ~On/Off Footwear: 3 ~Toileting Hygiene (QC): 6 ~Toilet Transfer (QC): 6 ~ ~OT Supervisor Sample Goals ~Snf Goals ~Time Frame: Aug 31, 2019 ~Eating (QC): 6 ~Oral Hygiene (QC): 6 ~Toileting Hygiene (QC): 6 ~Shower/Bathe Self (QC): 6 ~Upper Body Dressing (QC): 6 ~Lower Body Dressing (QC): 6 ~On/Off Footwear (QC): 6 ~1=Demonstrate adherence to instructed precautions during ADL tasks. ~2=Patient will verbalize/demons trate understanding of assistive devices/modifica tions for ADL. ~3=Patient will improve strength/toleran ce for activity to enable patient to perform ADL's. ~ ~OT Education/Plan ~Problem List/Assessment ~Assessment: Impaired Self-Care Skills ~ ~Discharge Recommendations ~Plan/Recommenda tions: Continue POC ~ ~Treatment Plan/Plan of Care ~Patient would benefit from OT for education, treatment and training to promote independence in ~ADL's, mobility, safety and/or upper extremity function for ADL's. ~Plan of Care: ADL Retraining, Functional Mobility, UE Funct Exercise/Act ~Treatment Duration: Aug 31, 2019 ~Frequency: 5 times per week ~Estimated Hrs Per Day: .25 hour per day ~Agreement: Yes ~Rehab Potential: Fair ~ ~Time/GCodes ~Start Time: 13:45 ~Stop Time: 14:10 ~Total Time Billed (hr/min): 25 ~Billed Treatment Time ~1 visit-ADL 2 (25 min) ~ ~ ~ ~CARMINE BELTRAN Aug 27, 2019 14:48 ~ ~ ~<Created by CARMINE SUAZO> ~<Electronically signed by CARMINE SUAZO> 08/27/19 1451 ~ ~ no information NAME: YADIRA FRANCES (no code) PENDING LOCAT ION K ~MED REC#: [facility] [id number] ~ ~PHYSICIAN: WILVER GRIMM PT ~PT Daily Note-Current ~Subjective ~Patient agrees to PT. ~ ~Pain ~ ~ Numeric Pain Scale: 7 ~ Location: Left ~ Location Body Site: Knee ~ Pain Description: Acute ~ ~Mental Status ~Patient Orientation: Normal For Age ~ ~Transfers ~SCALE: Activities may be completed with or without assistive devices. ~ ~5-Jxjzofbmch-ot tient completes the activity by him/herself with no assistance from a helper. ~5-Set-up or Clean-up Assistance-helpe r sets up or cleans up; patient completes activity. [place] ~assists only prior to or ~ following the activity. ~4-Supervision or Touching Assistance-helpe r provides verbal cues and/or touching/steadyi ng and/or ~contact guard assistance as patient completes activity. Assistance may be provided ~ throughout the activity or intermittently. ~3-Partial/Moder ate Assistance-helpe r does LESS THAN HALF the effort. [place] lifts, holds or supports~trunk or limbs, but provides less than half the effort. ~2-Substantial/M aximal Assistance-helpe r does MORE THAN HALF the effort. [place] lifts or holds trunk ~or limbs and provides more than half the effort. ~1-Vtrrhjzew-sdk per does ALL the effort. Patient does [...] or Safety Concerns. ~Sit to Stand (QC): 6 ~up ad lesia in room ~ ~Weight Bearing ~Right Lower Extremity: Right ~Full Weight Bearing ~Left Lower Extremity: Left ~Weight Bearing/Tolerate d ~ ~Gait Training ~Does the Patient Walk?: Yes ~Distance: 125' x 2/ 50' x 2 ~Walk 10 feet (QC): 6 ~Walk 50 ft with 2 Turns(QC): 6 ~ ~Stair Training ~ Stair Training: Handrails/: 1 handrail, uses walker ~#of Steps: 3 ~1 Step (curb) (QC): 5 ~Stairs: Pattern: Step to ~ ~Exercises ~Supine Ex: Ankle pumps, Quad Set ~Supine Reps: 12 ~ ~Assessment ~Patient tolerated treatment well and remains up in recliner. Patient is up in room ad lesia. Patient~performe d steps without difficulty and has home set up with assistance. ~ ~PT Snf Goals ~Snf Goals ~PT Snf Goals Time Frame: Aug 29, 2019 ~Roll [...] Agrees t: Yes ~ ~Time/GCodes ~Time In: 1430 ~Time Out: 1454 ~Total Billed Treatment Time: 24 ~Total Billed Treatment ~1 visit ~FA x 2 24 min ~ ~ ~ ~WILVER GRIMM PT Aug 27, 2019 15:03 ~ ~ ~<Created by WILVER GRIMM PT> ~<Electronically signed by WILVER GRIMM PT> 08/27/19 1503 ~ ~ no information NAME: YADIRA FRANCES (no code) PENDING LOCAT ION K ~MED REC#: [facility] [id number] ~ ~PHYSICIAN: WILVER GRIMM PT ~PT Daily Note-Current ~Subjective ~Patient in recliner and agrees to PT. Patient has hinged knee brace left LE 0-20 degrees locked on. ~ ~Pain ~ ~ Numeric Pain Scale: 7 ~ Location: Left ~ Location Body Site: Knee ~ Pain Description: Acute ~ ~Mental Status ~Patient Orientation: Normal For Age ~ ~Transfers ~SCALE: Activities may be completed with or without assistive devices. ~ ~1-Khoarudkpd-sc tient completes the activity by him/herself with no assistance from a helper. ~5-Set-up or Clean-up Assistance-helpe r sets up or cleans up; patient completes activity. [place] ~assists only prior to or ~ following the activity. ~4-Supervision or Touching Assistance-helpe r provides verbal cues and/or touching/steadyi ng and/or ~contact guard assistance as patient completes activity. Assistance may be provided ~ throughout the activity or intermittently. ~3-Partial/Moder ate Assistance-helpe r does LESS THAN HALF the effort. [place] lifts, holds or supports~trunk or limbs, but provides less than half the effort. ~2-Substantial/M aximal Assistance-helpe r does MORE THAN HALF the effort. [place] lifts or holds trunk ~or limbs and provides more than half the effort. ~4-Kpjcibsfk-jkw per does ALL the effort. Patient does [...] Safety Concerns. ~Sit to Stand (QC): 5 ~ ~Weight Bearing ~Right Lower Extremity: Right ~Full Weight Bearing ~Left Lower Extremity: Left ~Weight Bearing/Tolerate d ~ ~Gait Training ~Does the Patient Walk?: Yes ~Distance: 150' ~Walk 10 feet (QC): 5 ~Walk 50 ft with 2 Turns(QC): 5 ~Walk 150 ft (QC): 5 ~Gait Assistive Device: FWW ~slow, antalgic ~ ~Exercises ~Seated Therapy Exercises: Ankle pumps ~Seated Reps: 15 ~ ~Assessment ~Patient fatigues very quickly with minimal activity. Patient is SBA with all mobility and remained ~up in recliner with needs met. ~ ~PT Supervisor Sample Goals ~Snf Goals ~PT Snf Goals Time Frame: Aug 29, 2019 ~Roll [...] Agrees t: Yes ~ ~Time/GCodes ~Time In: 1104 ~Time Out: 1116 ~Total Billed Treatment Time: 12 ~Total Billed Treatment ~1 visit ~GT 12 min ~ ~ ~ ~WILVER GRIMM PT Aug 27, 2019 11:45 ~ ~ ~<Created by WILVER GRIMM PT> ~<Electronically signed by WILVER GRIMM PT> 08/27/19 1145 ~ ~ not yet categorized on 2019-08-26 no information NAME: YADIRA FRANCES (no code) PENDING LOCAT ION K ~MED REC#: [facility] [id number]) [id number] ~ ~PHYSICIAN: JOANIE WAITE MD ~Subjective ~HPI/CC On Admission ~Date Seen by Provider: August 25, 2019 ~Time Seen by Provider: 09:30 ~Yadira Frances is a 62-year-old female with [...] She denies any rash. ~Subjective/Even ts-last exam ~She reports feeling better today. She has no complaints or concerns. She is about to work with ~physical therapy. She has been eating and drinking well. ~ ~Objective ~Exam ~Vital Signs ~ ~Vital Signs ~ ~ ~ Date Time Temp Pulse Resp B/P (MAP) Pulse Ox O2 Delivery O2 Flow Rate FiO2 ~ ~08/26/19 07:51 37.5 113 20 105/68 (80) 95 Room Air ~ ~08/24/19 14:50 2 ~ ~Capillary Refill : Less Than 3 SecondsLess Than 3 Seconds ~General Appearance: No Apparent Distress, Obese ~Respiratory: Lungs Clear, Normal Breath Sounds, No Respiratory Distress ~Cardiovascular: No Edema, No Murmur ~Gastrointestina l: Normal Bowel Sounds, Non Tender, Soft ~Extremity: Normal Inspection, Non Tender, No Pedal Edema ~Neurologic/Psyc hiatric: Alert, Oriented x3, No Motor/Sensory Deficits, Normal Mood/Affect ~Skin: Normal Color, Warm/Dry ~ ~Results/Procedu res ~Lab ~Patient resulted labs reviewed. ~Imaging: Reviewed Imaging Report ~ ~Assessment/Plan ~Assessment and Plan ~Assess Plan/Chief Complaint ~Osteoarthritis of left knee ~Status post total knee arthroplasty ~Left quadriceps tendon rupture ~ Orthopedic Surgery primary ~ Status post total knee arthroplasty 08/21 ~ Returned to OR 08/23 due to quadriceps tendon rupture ~ continue pain regimen ~ continue bowel [...] - Gastro-~esophage al reflux disease without esophagitis ~(6) Quadriceps tendon rupture ~Status: Acute ~Qualifiers: ~ Encounter type: initial encounter Laterality: left Qualified Codes: S76.112A - Strain of ~left quadriceps muscle, fascia and tendon, initial encounter ~ ~Clinical Quality Measures ~DVT/VTE Risk/Contraindic ation: ~Risk Factor Score Per Nursin ~RFS Level Per Nursing on Admit: 4+=Very High ~ ~ ~ ~JOANIE WAITE MD August 26, 2019 10:38 ~ ~ ~<Created by JOANIE WAITE MD> ~<Electronically signed by JOANIE WAITE MD> 08/26/19 1038 ~ ~ no information NAME: YADIRA FRANCES (no code) PENDING LOCAT ION K ~[facility] REC#: [facility] [id number] ~ ~PHYSICIAN: JOANIE WAITE MD ~Subjective ~HPI/CC On Admission ~Date Seen by Provider: August 26, 2019 ~Time Seen by Provider: 09:30 ~Yadira Frances is a 62-year-old female with [...] She denies any rash. ~Subjective/Even ts-last exam ~She is sitting in her bedside chair. She has no complaints or concerns this morning. She has been ~eating and drinking without issue. She has been up and moving around a little bit. She reports ~feeling feverish and diaphoretic overnight. She denies any chest pain or shortness of breath. She ~denies any nausea or vomiting. She has had a bit of cough with use of her incentive spirometer. ~ ~Objective ~Exam ~Vital Signs ~ ~Vital Signs ~ ~ ~ Date Time Temp Pulse Resp B/P (MAP) Pulse Ox O2 Delivery O2 Flow Rate FiO2 ~ ~08/26/19 07:51 37.5 113 20 105/68 (80) 95 Room Air ~ ~08/24/19 14:50 2 ~ ~Capillary Refill : Less Than 3 SecondsLess Than 3 Seconds ~General Appearance: No Apparent Distress, Obese ~Respiratory: Lungs Clear, Normal Breath Sounds, No Respiratory Distress ~Cardiovascular: Regular Rate, Rhythm, No Edema, No Murmur ~Gastrointestina l: Normal Bowel Sounds, Non Tender, Soft ~Extremity: Non Tender, Pedal Edema (2+), Other (Left knee immobilizer in place) ~Neurologic/Psyc hiatric: Alert, Oriented x3, No Motor/Sensory Deficits, Normal Mood/Affect ~Skin: Normal Color, Warm/Dry ~ ~Results/Procedu res ~Lab ~Patient resulted labs reviewed. ~Imaging: Reviewed Imaging Report ~ ~Assessment/Plan ~Assessment and Plan ~Assess Plan/Chief Complaint ~Osteoarthritis of left knee ~Status post total knee arthroplasty ~Left quadriceps tendon rupture ~ Orthopedic Surgery primary ~ Status post total knee arthroplasty 08/21 ~ Returned to OR 08/23 due to quadriceps tendon rupture ~ continue pain regimen ~ continue bowel [...] - Gastro-~esophage al reflux disease without esophagitis ~(6) Quadriceps tendon rupture ~Status: Acute ~Qualifiers: ~ Encounter type: initial encounter Laterality: left Qualified Codes: S76.112A - Strain of ~left quadriceps muscle, fascia and tendon, initial encounter ~ ~Clinical Quality Measures ~DVT/VTE Risk/Contraindic ation: ~Risk Factor Score Per Nursin ~RFS Level Per Nursing on Admit: 4+=Very High ~ ~ ~ ~JOANIE WAITE MD August 26, 2019 10:40 ~ ~ ~<Created by JOANIE WAITE MD> ~<Electronica lly signed by JOANIE WAITE MD> 08/26/19 1040 ~ ~ no information NAME: YADIRA FRANCES (no code) PENDING LOCAT ION K ~MED REC#: [facility] [id number] ~ ~PHYSICIAN: CARMINE SELF PT ~PT Daily Note-Current ~Subjective ~Agrees to PT. Reports she is starting to feel a little better. Reports mobility remains difficult ~at this time. Wearing her brace at all times ~ ~Pain ~ ~ Numeric Pain Scale: 5-Moderate Pain ~ Location: Left ~ Location Body Site: Knee ~ Pain Description: Ache, Pressure ~ Comment: Painful with WB activity. ~ ~Mental Status ~Patient Orientation: Person, Place, Time, Situation ~ ~Transfers ~SCALE: Activities may be completed with or without assistive devices. ~ ~3-Crlwcqfsie-oz tient completes the activity by him/herself with no assistance from a helper. ~5-Set-up or Clean-up Assistance-helpe r sets up or cleans up; patient completes activity. [place] ~assists only prior to or ~ following the activity. ~4-Supervision or Touching Assistance-helpe r provides verbal cues and/or touching/steadyi ng and/or ~contact guard assistance as patient completes activity. Assistance may be provided ~ throughout the activity or intermittently. ~3-Partial/Moder ate Assistance-helpe r does LESS THAN HALF the effort. [place] lifts, holds or supports~trunk or limbs, but provides less than half the effort. ~2-Substantial/M aximal Assistance-helpe r does MORE THAN HALF the effort. [place] lifts or holds trunk ~or limbs and provides more than half the effort. ~6-Upbkgruhe-zqi per does ALL the effort. Patient does [...] Medical Conditions or Safety Concerns. ~Sit to Lying (QC): 3 ~Lying to Sitting/Side of Bed(Q: 3 ~Sit to Stand (QC): 3 ~Chair/Bed-to- air Xfer(QC): 3 ~Min assist to assist left LE in/out of bed with skilled cues for sequencing and technique. Min ~assist to transfer sit to stand with cues for hand placement and correct sequencing. Pt slow with ~transfers and takes extra time to complete. ~ ~Weight Bearing ~Right Lower Extremity: Right ~Full Weight Bearing ~Left Lower Extremity: Left ~Weight Bearing/Tolerate d ~ ~Gait Training ~Does the Patient Walk?: Yes ~Distance: 60 ft x 2 ~Walk 10 feet (QC): 3 ~Walk 50 ft with 2 Turns(QC): 3 ~Gait Assistive Device: FWW ~Knee immobilizer in place during gait. Pt able to ambulate. x 60 ft at a time, step to gait with ~the right with timid WB through the left LE. Skilled cues for instruction in proper walker use and ~sequencing with gait. Slow gait. Slightly unsteady with CG-min assist at times for safety. Pt ~follows cues well. ~ ~Exercises ~Supine Ex: Ankle pumps, Quad Set, Hip abd/add ~Supine Reps: 10 (Functional strength to facilitate quad activitation and control ) ~ ~Treatments ~Polar pack applied post treatment. ~ ~Assessment ~Current Status: Good Progress ~Progressing well, but continues to have functional mobility deficits with need for assist with all ~mobility. Min assist with transfers and gait with skilled cues to sequence. Unable to safely care ~for herself at home at this time and would benefit from continued skilled therapy services to return~her to a mod indep level of mobility. ~ ~PT Snf Goals ~Supervisor Sample Goals ~PT Supervisor Sample Goals Time Frame: Aug 29, 2019 ~Roll Left Right (QC): 6 ~Sit to Lying (QC): 6 ~Lying-Sitting on Side/Bed(QC): 6 ~Sit to Stand (QC): 5 ~Chair/Bed-to- air Xfer(QC): 5 ~Walk 10 feet (QC): 5 ~Walk 50ft with 2 Turns (QC): 5 ~Walk 150 ft (QC): 5 ~1 Step (curb) (QC): 4 ~4 Steps (QC): 4 ~ ~PT Plan ~Problem List ~Problem List: Activity Tolerance, Functional Strength, Safety, Balance, Gait, Transfer, Bed ~Mobility ~ ~Treatment/Plan ~Treatment Plan: Continue Plan of Care ~Treatment Plan: Bed Mobility, Education, Functional Activity Alexsandra, Functional Strength, Gait, ~Safety, Therapeutic Exercise, Transfers ~Treatment Duration: Aug 29, 2019 ~Frequency: 11 times per week ~Estimated Hrs Per Day: .25 hour per day ~Patient and/or Family Agrees t: Yes ~ ~Safety Risks/Education ~Patient Education: Transfer Techniques, Safety Issues ~Teaching Recipient: Patient ~Teaching Methods: Demonstration, Discussion ~Response to Teaching: Return Demonstration ~ ~Time/GCodes ~Time In: 1010 ~Time Out: 1042 ~Total Billed Treatment Time: 32 ~Total Billed Treatment ~visit ~EX 15 ~GT 17 ~ ~ ~ ~CARMINE SELF PT August 26, 2019 10:43 ~ ~ ~<Created by CARMINE SELF PT> ~<Electronically signed by CARMINE SELF PT> 08/26/19 1044 ~ ~ not yet categorized on 2019-08-25 no information NAME: YADIRA FRANCES (no code) PENDING ufindads ~MED REC#: [facility] [id number] ~ ~PHYSICIAN: FIONA PERES CRNA ~General ~Patient Condition ~Mental Status/LOC: Same [...] 10:20 ~ ~ ~<Created by FIONA PERES FIELD AUTO APPRAISER> ~<Electronically signed by FIONA PERES FIELD AUTO APPRAISER> 08/25/19 1020 ~ ~ no information NAME: YADIRA FRANCES (no code) PENDING ufindads ~MED REC#: [facility] [id number] ~ ~PHYSICIAN: JAY MORALES OT ~OT Current Status-Daily Note ~Subjective ~Pt seen in room, up in recliner, agreeable to OT. No pain mentioned. ~ ~Appearance ~Alert, cooperative ~ ~ADL-Treatment ~OT orders reinitiated after surgery for patellar tendon repair L LE, following L TKA. Pt now in ~splint L LE, with WBAT. Pt indicated that she has red theraband in her room and will work on UE ~exercises this weekend. She needed to toilet. Assist to lower leg on recliner. Pt able to scoot to ~edge of chair and stand up with CGA, struggling a little before able to get her balance with FWW. ~Walked into bathroom with CGA, FWW, slowly. Toilet transfer with CGA onto tall toilet, using grab ~bar and FWW. Pt requested time and will contact nursing when finished. Pt left up in bathroom, call ~light present. Nursing notified as well. ~Therapy Code Descriptions/Def initions ~ ~Functional [place] Measure: ~0=Not Assessed/NA 4=Minimal Assistance ~1=Total Assistance 5=Supervision or Setup ~2=Maximal Assistance 6=Modified [place] ~3=Moderate Assistance 7=Complete IndependenceSCAL E: Activities may be completed with or without ~assistive devices. ~ ~6-Dshyizpcgu-tt tient completes the activity by him/herself with no assistance from a helper. ~5-Set-up or Clean-up Assistance-helpe r sets up or cleans up; patient completes activity. [place] ~assists only prior to or ~ following the activity. ~4-Supervision or Touching Assistance-helpe r provides verbal cues and/or touching/steadyi ng and/or ~contact guard assistance as patient completes activity. Assistance may be provided ~ throughout the activity or intermittently. ~3-Partial/Moder ate Assistance-helpe r does LESS THAN HALF the effort. [place] lifts, holds or supports~trunk or limbs, but provides less than half the effort. ~2-Substantial/M aximal Assistance-helpe r does MORE THAN HALF the effort. [place] lifts or holds trunk ~or limbs and provides more than half the effort. ~3-Swkpuqwec-sgi per does ALL the effort. Patient does [...] to Medical Conditions or Safety Concerns. ~ ~Education ~OT Patient Education: Modified ADL techniques, Purpose of tx/functional activities, Reviewed ~precautions, Transfer techniques ~Teaching Recipient: Patient ~Teaching Methods: Discussion ~Response to Teaching: Verbalize Understanding, Return Demonstration ~ ~OT Supervisor Sample Goals ~Supervisor Sample Goals ~Time Frame: Aug 31, 2019 ~Eating (QC): 6 ~Oral Hygiene (QC): 6 ~Toileting Hygiene (QC): 6 ~Shower/Bathe Self (QC): 6 ~Upper Body Dressing (QC): 6 ~Lower Body Dressing (QC): 6 ~On/Off Footwear (QC): 6 ~1=Demonstrate adherence to instructed precautions during ADL tasks. ~2=Patient will verbalize/demons trate understanding of assistive devices/modifica tions for ADL. ~3=Patient will improve strength/toleran ce for activity to enable patient to perform ADL's. ~ ~OT Education/Plan ~Discharge Recommendations ~Plan/Recommenda tions: Continue POC ~ ~Treatment Plan/Plan of Care ~Patient would benefit from OT for education, treatment and training to promote independence in ~ADL's, mobility, safety and/or upper extremity function for ADL's. ~Plan of Care: ADL Retraining, Functional Mobility, UE Funct Exercise/Act ~Treatment Duration: Aug 31, 2019 ~Frequency: 5 times per week ~Estimated Hrs Per Day: .25 hour per day ~Agreement: Yes ~Rehab Potential: Fair ~ ~Time/GCodes ~Start Time: 11:44 ~Stop Time: 11:55 ~Total Time Billed (hr/min): 11 ~Billed Treatment Time ~visit, 11 minutes ADL ~ ~ ~ ~JAY MORALES OT August 25, 2019 12:09 ~ ~ ~<Created by JAY MORALES OT> ~<Electronically signed by JAY MORALES OT> 08/25/19 1209 ~ ~ laboratory on 2019-08-25 Hematocrit (Bld) 27 % (L) 36.1 - 50.3 % 08-25-2019 P ENDING LOCATION [Volume 02:11-0400 [facility] ([id number]) fraction] Hemoglobin (Bld) 8.4 g/dL (L) 12.1 - 17.2 g/dL 08-25-2019 PENDING LOCATION [Mass/Vol] 02:11-0400 [facility] ([id number]) not yet categorized on 2019-08-24 no information NAME: YADIRA FRANCES (no code) PENDING LOCAT ION K ~MED REC#: [facility] ([id number]) [id number] ~ ~PHYSICIAN: WILVER GRIMM PT ~PT Daily Note-Current ~Subjective ~Patient reports she is having surgery on this date. ~ ~Transfers ~SCALE: Activities may be completed with or without assistive devices. ~ ~2-Irzqnbeugl-ar tient completes the activity by him/herself with no assistance from a helper. ~5-Set-up or Clean-up Assistance-helpe r sets up or cleans up; patient completes activity. [place] ~assists only prior to or ~ following the activity. ~4-Supervision or Touching Assistance-helpe r provides verbal cues and/or touching/steadyi ng and/or ~contact guard assistance as patient completes activity. Assistance may be provided ~ throughout the activity or intermittently. ~3-Partial/Moder ate Assistance-helpe r does LESS THAN HALF the effort. [place] lifts, holds or supports~trunk or limbs, but provides less than half the effort. ~2-Substantial/M aximal Assistance-helpe r does MORE THAN HALF the effort. [place] lifts or holds trunk ~or limbs and provides more than half the effort. ~9-Chgmnsbhz-xrn per does ALL the effort. Patient does [...] per ~patient and physician report. ~ ~PT Supervisor Sample Goals ~Snf Goals ~PT Snf Goals Time Frame: Aug 29, 2019 ~Roll [...] PENDING LOCAT ION K ~MED REC#: [facility] [id number] ~ ~PHYSICIAN: REFUGIO GANN MD ~Post-Operative Progess Note ~Surgeon (s)/Sleeve Wheel Maker (s) ~Surgeon ~REFUGIO GANN MD ~Sleeve Wheel Maker: Paolo Correa ~ ~Pre-Operative Diagnosis ~left quadriceps tendon disruption ~ ~Post-Operative Diagnosis ~ ~left quadriceps tendon disruption ~ ~Procedure Operative Findings ~Date of Procedure ~08/24/19 ~Procedure Performed/Findin gs ~left quadriceps tendon repair ~Anesthesia Type ~GETA ~ ~Estimated Blood Loss ~Estimated blood loss (mL): 100 ml ~ ~Specimens/Packi ng ~Specimens Removed ~none ~Packing: ~none ~ ~ ~ ~REFUGIO GANN MD August 24, 2019 11:55 ~ ~ ~<Created by REFUGIO GANN MD> ~<Electronically signed by REFUGIO GANN MD> 08/24/19 1335 ~ ~ laboratory on 2019-08-24 Hematocrit (Bld) 30 % (L) 36.1 - 50.3 % 08-24-2019 P ENDING LOCATION [Volume 01:33-0400 [facility] ([id number]) fraction] Hemoglobin (Bld) 9.5 g/dL (L) 12.1 - 17.2 g/dL 08-24-2019 PENDING LOCATION [Mass/Vol] 01:33-0400 [facility] ([id number]) not yet categorized on 2019-08-23 no information NAME: YADIRA FRANCES (no code) PENDING LOCAT ION K ~MED REC#: [facility] ([id number]) [id number] ~ ~PHYSICIAN: WILVER GRIMM PT ~PT Daily [...] completed with or without assistive devices. ~ ~4-Jsmegnhobz-td tient completes the activity by him/herself with no assistance from a helper. ~5-Set-up or Clean-up Assistance-helpe r sets up or cleans up; patient completes activity. [place] ~assists only prior to or ~ following the activity. ~4-Supervision or Touching Assistance-helpe r provides verbal cues and/or touching/steadyi ng and/or ~contact guard assistance as patient completes activity. Assistance may be provided ~ throughout the activity or intermittently. ~3-Partial/Moder ate Assistance-helpe r does LESS THAN HALF the effort. [place] lifts, holds or supports~trunk or limbs, but provides less than half the effort. ~2-Substantial/M aximal Assistance-helpe r does MORE THAN HALF the effort. [place] lifts or holds trunk ~or limbs and provides more than half the effort. ~6-Prruyscvn-wqv per does ALL the effort. Patient does [...] ~ ~PT Snf Goals ~Snf Goals ~PT Snf Goals Time Frame: Aug 29, 2019 ~Roll [...] PENDING LOCAT ION K ~MED REC#: [facility] [id number] ~ ~PHYSICIAN: JOANIE WAITE MD ~Subjective ~HPI/CC [...] PENDING LOCAT ION K ~MED REC#: [facility] [id number] ~ ~PHYSICIAN: FRANKLIN SILVA CRNA ~General ~Patient [...] per nursing. ~ ~ ~ ~FRANKLIN SILVA CRNA August 23, 2019 12:29 ~ ~ ~<Created by FRANKLIN SILVA FIELD AUTO APPRAISER> ~<Electronically signed by FRANKLIN SILVA FIELD AUTO APPRAISER> 08/23/19 1229 ~ ~ no information NAME: YADIRA FRANCES (no code) PENDING LOCAT ION K ~MED REC#: [facility] [id number]) [id number] ~ ~PHYSICIAN: WILVER GRIMM PT ~PT Daily [...] completed with or without assistive devices. ~ ~1-Tytntfbqvh-ax tient completes the activity by him/herself with no assistance from a helper. ~5-Set-up or Clean-up Assistance-helpe r sets up or cleans up; patient completes activity. [place] ~assists only prior to or ~ following the activity. ~4-Supervision or Touching Assistance-helpe r provides verbal cues and/or touching/steadyi ng and/or ~contact guard assistance as patient completes activity. Assistance may be provided ~ throughout the activity or intermittently. ~3-Partial/Moder ate Assistance-helpe r does LESS THAN HALF the effort. [place] lifts, holds or supports~trunk or limbs, but provides less than half the effort. ~2-Substantial/M aximal Assistance-helpe r does MORE THAN HALF the effort. [place] lifts or holds trunk ~or limbs and provides more than half the effort. ~4-Davdmptks-vlc per does ALL the effort. Patient does [...] ~ ~PT Snf Goals ~Snf Goals ~PT Snf Goals Time Frame: Aug 29, 2019 ~Roll [...] min ~EX 14 min ~ ~ ~ ~ALFA,WILVER PT August 23, 2019 14:50 ~ ~ ~<Created by WILVER GRIMM PT> ~<Electronically signed by WILVER GRIMM PT> 08/23/19 1450 ~ ~ laboratory on 2019-08-23 Hematocrit (Bld) 34 % (L) 36.1 - 50.3 % 08-23-2019 P ENDING LOCATION [Volume 01:05-0400 [facility] ([id number]) fraction] Hemoglobin (Bld) 10.9 g/dL (L) 12.1 - 17.2 g/dL 08-23-2019 PENDING LOCATION [Mass/Vol] 01:05-0400 [facility] ([id number]) not yet categorized on 2019-08-22 WRISTBAND NUMBER [id number] (no code) 08-22-2019 PENDING L OCATION 03:13-0400 [facility] ([id number]) laboratory on 2019-08-22 ABO and Rh group AN (no code) 08-22-2019 PENDING L OCATION Nom (Bld) 03:14-0400 [facility] ([id number]) Blood group Negative (no code) 08-22-2019 PENDING LOCATI ON antibody screen 03:33-0400 [facility] ([id number]) Ql laboratory on 2019-08-17 Coronavirus Ab Negative (no code) 08-17-2019 PENDING LOC ATION Qn (S) 09:38-0400 [facility] ([id number]) laboratory on 2019-08-15 ABO and Rh group AN (no code) 08-15-2019 PENDING L OCATION Nom (Bld) 08:07-0400 [facility] ([id number]) Albumin 4.1 g/dL (NEG) 3.4 - 5.4 g/dL 08-15-2019 PENDING LOCATION [Mass/Vol] 07:45-0400 [facility] ([id number]) ALP [Catalytic 98 U/L (NEG) 44 - 147 U/L 08-15-2019 PEND ING LOCATION activity/Vol] 07:45-0400 [facility] ([id number]) ALT [Catalytic 23 U/L (NEG) 4 - 40 U/L 08-15-2019 PENDIN G LOCATION activity/Vol] 07:45-0400 [facility] ([id number]) Amorphous MOD NIKHIL (A) 08-15-2019 PENDING LOCATI ON sediment LM Ql PHOSPHATE 11:20-0400 [facility] ([id number]) (Urine sed) Anion gap 9 mmol/L (NEG) 3 - 11 mmol/L 08-15-2019 PENDING LOCATION [Moles/Vol] 07:45-0400 [facility] ([id number]) AST [Catalytic 21 U/L (NEG) 10 - 34 U/L 08-15-2019 PENDI NG LOCATION activity/Vol] 07:45-0400 [facility] ([id number]) Bacteria LM Ql TRACE (no code) 08-15-2019 PENDING LOC ATION (Urine sed) 11:0400 [facility] ([id number]) Basophils (Bld) 0.0 10*3/uL (NEG) 0 - 0.3 10*3/uL 08-15-2019 PENDING LOCATION [#/Vol] 07:45-0400 [facility] ([id number]) Basophils/100 0 % (NEG) 0.5 - 1 % 08-15-2019 PENDING LOCATION WBC (Bld) 07:45-0400 [facility] ([id number]) Bilirubin 0.2 mg/dL (NEG) 0.1 - 1.2 mg/dL 08-15-2019 PENDIN G LOCATION [Mass/Vol] 07:45-0400 [facility] ([id number]) Bilirubin Ql (U) Negative (no code) 08-15-2019 PENDING L OCATION 11:0400 [facility] ([id number]) Blood group Negative (no code) 08-15-2019 PENDING LOCATI ON antibody screen 08:-0400 [facility] ([id number]) Ql Calcium 9.1 mg/dL (NEG) 8.5 - 10.2 mg/dL 08-15-2019 PENDI NG LOCATION [Mass/Vol] 07:45-0400 [facility] ([id number]) Calcium 9.0 mg/dL (NEG) 8.5 - 10.2 mg/dL 08-15-2019 PENDI NG LOCATION [Mass/Vol] 07:45-0400 [facility] ([id number]) Casts LM Ql NONE (no code) 08-15-2019 PENDING LOCATI ON (Urine sed) 11:-0400 [facility] ([id number]) Chloride 106 mmol/L (NEG) 95 - 106 mmol/L 05 PENDI NG LOCATION [Moles/Vol] 07:45-0400 [facility] ([id number]) Clarity (U) SL CLOUDY (no code) 08-15-2019 PENDING LOCATI ON 11:-0400 [facility] ([id number]) CO2 [Moles/Vol] 24 mmol/L (NEG) 23 - 29 mmol/L 08-15-2019 P ENDING LOCATION 07:45-0400 [facility] ([id number]) Color (U) YELLOW (no code) 08-15-2019 PENDING LOCATI ON 11:0400 [facility] ([id number]) Creatinine 0.79 mg/dL (NEG) 08-15-2019 PENDING LOCATI ON [Mass/Vol] 07:45-0400 [facility] ([id number]) Creatinine and > (no code) 08-15-2019 PENDING LOC ATION Glomerular 07:45-0400 [facility] ([id number]) filtration rate.predicted panel - Serum, Plasma or Blood Crystals LM Ql PRESENT (A) 08-15-2019 PENDING LOC ATION (Urine sed) 11:0400 [facility] ([id number]) Eosinophils 0.2 10*3/uL (NEG) 0.05 - 0.5 08-15-2019 PENDING LOCATION (Bld) [#/Vol] 10*3/uL 07:45-0400 [facility] ([id number]) Eosinophils/100 2 % (NEG) 1 - 4 % 08-15-2019 PENDIN G LOCATION WBC (Bld) 07:45-0400 [facility] ([id number]) Epithelial 0-2 (no code) 08-15-2019 PENDING LOCATI ON cells.renal LM 11:-0400 [facility] ([id number]) Ql (Urine sed) Epithelial 2-5 (no code) 08-15-2019 PENDING LOCATI ON cells.squamous 11:20-0400 [facility] ([id number]) LM Ql (Urine sed) Erythrocyte 14.9 % (H) 11.6 - 14.6 % 08-15-2019 PENDIN G LOCATION distribution 07:45-0400 [facility] ([id number]) width (RBC) [Ratio] ESR (Bld) 9 (NEG) 08-15-2019 PENDING LOCATI ON [Velocity] 07:45-0400 [facility] ([id number]) Glucose 138 mg/dL (H) 60 - 125 mg/dL 08-15-2019 PENDING LOCATION [Mass/Vol] 07:45-0400 [facility] ([id number]) Glucose Auto Negative (no code) 08-15-2019 PENDING LOCAT ION test strip Ql 11:20-0400 [facility] ([id number]) (U) Hematocrit (Bld) 41 % (NEG) 36.1 - 50.3 % 08-15-2019 P ENDING LOCATION [Volume 07:45-0400 [facility] ([id number]) fraction] Hemoglobin (Bld) 13.0 g/dL (NEG) 12.1 - 17.2 g/dL 08-15-2019 PENDING LOCATION [Mass/Vol] 07:45-0400 [facility] ([id number]) INR Coag 0.9 (NEG) 08-15-2019 PENDING LOCATI ON (Platelet poor 07:45-0400 [facility] ([id number]) plasma or blood) [Relative time] Ketones Auto Negative (no code) 08-15-2019 PENDING LOCAT ION test strip Ql 11:20-0400 [facility] ([id number]) (U) Leukocyte Negative (no code) 08-15-2019 PENDING LOCATI ON esterase Test 11:0400 [facility] ([id number]) strip Ql (U) Lymphocytes 2.4 10*3/uL (NEG) 0.9 - 2.9 08-15-2019 PENDING LOCATION (Bld) [#/Vol] 10*3/uL 07:45-0400 [facility] ([id number]) Lymphocytes/100 31 % (NEG) 20 - 40 % 08-15-2019 PENDIN G LOCATION WBC (Bld) 07:45-0400 [facility] ([id number]) MCH (RBC) 29 pg (NEG) 27 - 31 pg 08-15-2019 PENDING LOC ATION [Entitic mass] 07:45-0400 [facility] ([id number]) MCHC (RBC) 32 g/dL (NEG) 32 - 36 g/dL 08-15-2019 PENDING LOCATION [Mass/Vol] 07:45-0400 [facility] ([id number]) MCV (RBC) 91 (NEG) 08-15-2019 PENDING LOCATI ON [Entitic vol] 07:45-0400 [facility] ([id number]) Monocytes (Bld) 0.7 10*3/uL (NEG) 0.3 - 0.9 08-15-2019 PEND ING LOCATION [#/Vol] 10*3/uL 07:45-0400 [facility] ([id number]) Monocytes/100 9 % (NEG) 2 - 8 % 08-15-2019 PENDING LOCATION WBC (Bld) 07:45-0400 [facility] ([id number]) MRSA isol Org Negative (no code) 08-15-2019 PENDING LOCA TION specific cx Ql 07:25-0400 [facility] ([id number]) (Unsp spec) Mucus Ql (Urine Negative (no code) 08-15-2019 PENDING LO CATION sed) 11:20-0400 [facility] ([id number]) Neutrophils 4.4 10*3/uL (NEG) 1.7 - 7 10*3/uL 08-15-2019 PE NDING LOCATION (Bld) [#/Vol] 07:45-0400 [facility] ([id number]) Neutrophils/100 58 % (NEG) 40 - 60 % 08-15-2019 PENDIN G LOCATION WBC (Bld) 07:45-0400 [facility] ([id number]) Nitrite Ql (U) Negative (no code) 08-15-2019 PENDING LOC ATION 11:-0400 [facility] ([id number]) pH (U) 7.0 [pH] (no code) 4.6 - 8 [pH] 08-15-2019 PENDING L OCATION 11:20-0400 [facility] ([id number]) Platelet mean 9.8 (NEG) 08-15-2019 PENDING LOCA TION volume (Bld) 07:45-0400 [facility] ([id number]) [Entitic vol] Platelets (Bld) 205 10*3/uL (NEG) 150 - 450 08-15-2019 PEND ING LOCATION [#/Vol] 10*3/uL 07:45-0400 [facility] ([id number]) Potassium 4.2 mmol/L (NEG) 3.7 - 5.2 mmol/L 08-15-2019 PEND ING LOCATION [Moles/Vol] 07:45-0400 [facility] ([id number]) Protein 6.9 g/dL (NEG) 6.4 - 8.3 g/dL 08-15-2019 PENDING LOCATION [Mass/Vol] 07:45-0400 [facility] ([id number]) Protein Ql (U) Negative (no code) 08-15-2019 PENDING LOC ATION 11:20-0400 [facility] ([id number]) PT Coag (PPP) 12.6 s (NEG) 9.4 - 12.5 s 08-15-2019 PENDI NG LOCATION [Time] 07:45-0400 [facility] ([id number]) RBC (Bld) 4.46 10*6/uL (NEG) 4.2 - 6.1 08-15-2019 PENDING L OCATION [#/Vol] 10*6/uL 07:45-0400 [facility] ([id number]) RBC LM.HPF RARE (no code) 08-15-2019 PENDING LOCATI ON (Urine sed) 11:20-0400 [facility] ([id number]) [#/Area] RBC Ql (U) Negative (no code) 08-15-2019 PENDING LOCATI ON 11:20-0400 [facility] ([id number]) Sodium 139 mmol/L (NEG) 135 - 145 mmol/L 08-15-2019 PEND ING LOCATION [Moles/Vol] 07:45-0400 [facility] ([id number]) Specific gravity 1.015 (L) 08-15-2019 PENDING L OCATION (U) [Rel 11:-0400 [facility] (87513) density] Urea nitrogen 14 mg/dL (NEG) 7 - 20 mg/dL 08-15-2019 PENDI NG LOCATION [Mass/Vol] 07:45-0400 [facility] ([id number]) Urea 18 mg/mg (no code) 6 - 22 mg/mg 08-15-2019 PENDING L OCATION nitrogen/Creatin 07:45-0400 [facility] ([id number]) ine [Mass ratio] Urinalysis NO (no code) 08-15-2019 PENDING LOCATI ON complete W 11:20-0400 [facility] ([id number]) Reflex Culture panel - Urine Urobilinogen (U) 0.2 mg/dL (no code) 08-15-2019 PENDING L OCATION [Mass/Vol] 11:20-0400 [facility] ([id number]) WBC (Bld) 7.6 10*3/uL (NEG) 3.5 - 10.5 08-15-2019 PENDING L OCATION [#/Vol] 10*3/uL 07:45-0400 [facility] ([id number]) WBC LM.HPF RARE (no code) 08-15-2019 PENDING LOCATI ON (Urine sed) 11:20-0400 [facility] ([id number]) [#/Area] methicillin resistant staphylococcus aureus (mrsa) screening culture on 2017-10-12 MRSA presence MRSA not (no code) Via [facility] ([id number]) Vital Signs The data below is from unstructured sources Vital Response Date/Time Temperature (Fahrenheit) 98.2 degree s F (97.6 - 99.5) Temperature (Calculated Celsius) 36. 83097 degrees C (36.4 - 37.5) Temperature Source Tympanic Pulse Rate (adult) 70 bpm (60 - 90) Respiratory Rate 18 bpm (12 - 24) O2 Sat by Pulse Oximetry 100 % (88 - 100) Blood Pressure 126/76 mm Hg Pain Pain Intensity 3 Height (Feet) 5 feet Height (Inches) 4.00 inches Height (Calculated Centimeters) 162. 546001 cm Weight (Pounds) 174 pounds Weight (Calculated Grams) 87568.073 gm Weight (Calculated Kilograms) 78.925 073 kilograms Calculated BMI 29.86 Vital Response Date/Time Temperature (Fahrenheit) 97.2 degree s F (97.6 - 99.5) 10/19/2017 12:25pm Temperature (Calculated Celsius) 36. 77695 degrees C (36.4 - 37.5) 10/19/2017 11:50am [...] inches 10/19/2017 8:15am Height (Calculated Centimeters) 162. 929827 cm 10/19/2017 8:15am Weight (Pounds) 183 pounds 10/19/2017 8:15am Weight (Ounces) 5.0 oz 0 10/19/2017 8:15am Weight (Calculated Grams) 80123.15 gm 10/19/2017 8:15am Weight (Calculated Kilograms) 83.149 152 kilograms 10/19/2017 8:15am Calculated BMI 31.5 09/26 8:15am Weight Measurement Method Standing Scale 10/12/2017 9:46am No vital sign information available. Interventions No Information Plan of Treatment The data below is from unstructured sources Discharge Date 10/19/17 12:25pm Instructions/Education Provided RICKI PRATHER INSTRUCTIONS POSTOP DR. GANN-KNEE ARTHOSCOPY Prescriptions See Medication Section Prescriptions See [...] 10-19-2017 Admission to day no information REFUGIO GANN Wo rk no organization name - surgery Phone: 10-19-2017 01-18-2018 Discharged Recurring no information REFUGIO May Work no organization name - 01-24-2018 12-21-2017 Discharged Recurring no information REFUGIO May Work no organization name - 12-26-2017 08-22-2019 Evaluation and no information REFUGIO GANN MD [facility] [place] - management of (no phone) [facility] 08-28-2019 inpatient (no phone) NEGATED Patient encounter no [...] 10-19-2017 10-12-2017 Patient encounter no information REFUGIO flannery no organization name - 10-12-2017 07-27-2017 Patient [...] name no or ganization name - 07-12-2012 08-22-2019 Patient encounter no information REFUGIO [facility] - procedure (no phone) [facility] 08-28-2019 (no phone) 08-17-2019 Patient encounter no information REFUGIO [facility] - procedure (no phone) [facility] 08-17-2019 (no phone) 08-15-2019 Patient encounter no information REFUGIO [facility] procedure (no phone) [facility] (no phone) 04-17-2019 Patient encounter no information JUANJO MARCIAL MA [facility]SC[facility] procedure (no phone) [facility] g (no phone) no information Encounter for other no name (no phone) preprocedural examination no information Pre-operative no name no organization name examination, unspecified Medical Equipment No Information Payers Normalized Payer Value Unknown [id number]) Clinical Notes Note Type Note Facility Note NAME: YADIRA FRANCES ~MED REC #: [id number] ~ ~PHYSICIAN: PENDING REFUGIO GANN MD ~Pre-Operative Progress Note ~H P Reviewed ~The H P was LOCATION reviewed, patient examined and no riley es noted. ~Date Seen by Provider: August [id number] ~Time Seen by Provider: 07:20 ~Date H P Reviewed : August 22, 2019 ~Time H P (12883) Reviewed: 07:11 ~Pre-Operative Diagnosi s: left knee primary osteoarthritis ~ ~ ~ ~REFUGIO GANN MD August 22, 2019 07:28 ~ ~ ~<Created by REFUGIO GANN MD> ~<Electronically signed by REFUGIO BARRAGAN MD> 08/22/19 0728 ~ ~ Note NAME: YADIRA FRANCES ~MED REC #: [id number] ~ ~PHYSICIAN: PENDING REFUGIO GANN MD ~Standard Progress Note ~Progress Notes/Assess Plan ~Date LOCATION Seen by a Provider: August 22, 2019 ~Time Seen by a Prov ider: 13:52 [facility] ~Progress/Assessment Plan ~post op check ~no complain ts ~radiographs--HW well (34978) positioned without fracture ~LLE--2 plu s DP pulse with brisk cap refill. intact sensation throughout. Intact DF andPF o f toes and~ankle ~s/p LTKA ~mobilize as able ~ ~ ~ ~REFUGIO GANN MD August 22, 2019 13:54 ~ ~ ~<Created by REFUGIO GANN MD> ~<Electronically signed by Dany GANN MD> 08/22/19 1354 ~ ~ Note NAME: YADIRA FRANCES ~MED REC #: [id number] ~ ~PHYSICIAN: PENDING REFUGIO GANN MD ~Standard Progress Note ~Progress Notes/Assess Plan ~Date LOCATION Seen by a Provider: August 23, 2019 ~Time Seen by a Prov ider: 07:55 [facility] ~Progress/Assessment Plan ~post op check ~no complain ts ~radiographs--HW well (92538) positioned without fracture ~LLE--2 plu s DP [...] /104 (129) 100 Nasal Cannula 2 ~ ~5/27/20 10:10 18 178/98 (124) 100 Nasal Cannula [...] LTKA ~continue PT. ~ ~ ~ ~REFUGIO GANN MD August 23, 2019 07:59 ~ ~ ~<Created by REFUGIO GANN MD> ~<Electronically signed by REFUGIO BARRAGAN MD> 08/23/19 0759 ~ ~ Note NAME: YADIRA FRANCES ~MED REC #: [id number] ~ ~PHYSICIAN: PENDING REFUGIO GANN MD ~Standard Progress Note ~Progress Notes/Assess Plan ~Date LOCATION Seen by a Provider: August 23, 2019 ~Time Seen by a Prov ider: 15:12 [facility] ~Progress/Assessment Plan ~post op check ~no complain ts ~radiographs--HW well (18978) positioned without fracture ~LLE--2 plu s DP [...] ~NPO after MN ~ ~ ~ ~REFUGIO GANN MD August 23, 2019 15:14 ~ ~ ~<Created by REFUGIO GANN MD> ~<E lectronically signed by REFUGIO GANN MD> 08/23/19 1514 ~ ~ Note NAME: YADIRA FRANCES ~MED REC #: [id number] ~ ~PHYSICIAN: PENDING REFUGIO GANN MD ~Standard Progress Note ~Progress Notes/Assess Plan ~Date LOCATION Seen by a Provider: August 24, 2019 ~Time Seen by a Prov ider: 06:56 [facility] ~Progress/Assessment Plan ~post op check ~no complain ts ~radiographs--HW well (26629) positioned without fracture ~LLE--2 plu s DP [...] 20 123/71 (88) 99 Room Air ~ ~5/28/20 16:10 36.6 85 18 122/66 (84) 9 [...] and r epair ~ ~ ~ ~REFUGIO GANN MD August 24, 2019 06:58 ~ ~ ~<Created by REFUGIO MIKE MD> ~<Electronically signed by REFUGIO GANN MD> 08/24/19 0658 ~ ~ Note NAME: YADIRA FRANCES ~MED REC #: [id number] ~ ~PHYSICIAN: PENDING REFUGIO GANN MD ~Pre-Operative Progress Note ~H P Reviewed ~The H P was LOCATION reviewed, patient examined and no riley es noted. ~Date Seen by Provider: August [id number] ~Time Seen by Provider: 11:54 ~Date H P Reviewed : August 22, 2019 ~Time H P (24654) Reviewed: 07:11 ~Pre-Operative Diagnosi s: left quadriceps tendon disruption ~ ~ ~ ~REFUGIO GANN MD August 24, 2019 11: 54 ~ ~ ~<Created by REFUGIO GANN MD> ~<Electronically signed by REFUGIO BARRAGAN MD> 08/24/19 1154 ~ ~ Note NAME: YADIRA FRANCES ~MED REC #: [id number] ~ ~PHYSICIAN: PENDING WANG MARTIN PT ~Therapy Progress Note ~Pt. just returned to room from LOCATION surgery this PM due to L quadriceps ten don rupture. Pt. states she ~is having a KHS lot of pain in the L knee, declined sta nding at [facility] this PM. We will reevaluate (25025) patient~08/24. ~ ~1500 ~ ~ ~ ~Pham MARTIN PT August 24, 2019 15:04 ~ ~ ~<Created by WANG MARTIN PT> ~<Peggy ctronically signed by WANG MARTIN PT> 08/24/19 1504 ~ ~ Note NAME: YADIRA FRANCES ~MED REC #: [id number] ~ ~PHYSICIAN: PENDING REFUGIO GANN MD ~Standard Progress Note ~Progress Notes/Assess Plan ~Date LOCATION Seen by a Provider: August 25, 2019 ~Time Seen by a Prov ider: 08:00 [facility] ~Progress/Assessment Plan ~post op check ~no complain ts ~radiographs--HW well () positioned without fracture ~LLE--2 plu s DP [...] ~PT. ~IRF eval ~ ~ ~ ~REFUGIO GANN MD August 25, 2019 08:03 ~ ~ ~<Created by REFUGIO GANN MD> ~<Electronically signed by Dany GANN MD> 08/25/19 0803 ~ ~ Note NAME: YADIRA FRANCES ~MED REC #: [id number] ~ ~PHYSICIAN: PENDING REFUGIO GANN MD ~Standard Progress Note ~Progress Notes/Assess Plan ~Date LOCATION Seen by a Provider: August 26, 2019 ~Time Seen by a Prov ider: 08:03 [facility] ~Progress/Assessment Plan ~post op check ~no complain ts ~radiographs--HW well (00357) positioned without fracture ~LLE--2 plu s DP pulse with brisk cap refill. intact sensation throughout. Intact DF andPF o f toes and~ankle ~s/p LTKA ~mobilize as able ~Final Diagnosis ~no complaints ~ ~Vital Signs ~ ~ ~ Date Time Temp Pulse Resp B/P (MAP) Pulse Ox O2 Delivery O2 Flow Rate FiO2 ~ ~08/26/19 07:51 37.5 113 20 105/68 (80) 95 Room Air ~ ~08/26/19 0 3:51 36.0 95 16 129/60 (83) 96 Simple Mask ~ ~08/26/19 00:07 36.7 101 16 116/5 3 (74) 97 Room Air ~ ~08/25/19 20:30 Room Air ~ ~08/25/19 19:16 37.2 109 18 113/72 (86) 100 Room Air ~ ~08/25/19 15:28 37.5 105 18 105/67 (80) 96 Room Air ~ ~ 13:00 37.2 108 20 103/67 (79) 97 Room Air ~ ~08/25/19 09:00 Room Air ~ ~ ~ ~ ~ I O ~ ~ 08/26/19 ~ ~ 07:00 ~ ~Intake Total 3596 ml ~ ~Balance 3596 ml ~ ~LLE--inci leisa clean and dry. No calf tenderness. Neg Shawn's. quad tendon palpably intac t ~s/p LTKA and quad repair ~to IRU when accepted. Patient requires considerable rehab prior to DC home ~ ~ ~ ~REFUGIO GANN MD August 26, 2019 08:05 ~ ~ ~<Created by REFUGIO GANN MD> ~<Electronically signed by REFUGIO BARRAGAN MD> 08/26/19 0805 ~ ~ Note NAME: YADIRA FRANCES ~MED REC #: [id number] ~ ~PHYSICIAN: PENDING REFUGIO GANN MD ~Standard Progress Note ~Progress Notes/Assess Plan ~Date LOCATION Seen by a Provider: Aug 27, 2019 ~Time Seen by a Provi tanya: 07:53 [facility] ~Progress/Assessment Plan ~post op check ~no complain ts ~radiographs--HW well (13279) positioned without fracture ~LLE--2 plu s DP pulse with brisk cap refill. intact sensation throughout. Intact DF andPF o f toes and~ankle ~s/p LTKA ~mobilize as able ~Final Diagnosis ~no complaints ~ ~Vital Signs ~ ~ ~ Date Time Temp Pulse Resp B/P (MAP) Pulse Ox O2 Delivery O2 Flow Rate FiO2 ~ ~08/27/19 04:00 37.3 100 18 115/69 (84) 98 Room Air ~ ~08/27/19 00 :00 37.1 94 16 112/72 (85) 96 Room Air ~ ~08/26/19 23:00 37.1 ~ ~08/26/19 20:20 Ro om Air ~ ~08/26/19 20:16 37.6 116 17 122/70 (87) 96 Room Air ~ ~08/26/19 16:0 2 37.0 104 18 102/66 (78) 100 Room Air ~ ~08/26/19 11:43 37.0 94 16 100/64 (76) 9 3 Room Air ~ ~08/26/19 09:00 Room Air ~ ~ ~ ~ ~I O ~ ~ 08/27/19 ~ ~ 07:00 ~ ~Intake Total 1712 ml ~ ~Balance 1712 ml ~ ~LLE--incision clean and dry. No calf t enderness. Quad palpably intact ~s/p LTKA and quad repair ~pt would benefit from IRU due to limited mobility, weakness and history of osteogenesis imperfecta ~ ~ ~ ~REFUGIO GANN MD Aug 27, 2019 07:55 ~ ~ ~<Created by REFUGIO GANN MD> ~ <Electronically signed by REFUGIO GANN MD> 08/27/19 9855 ~ ~ Note NAME: YADIRA FRANCES ~MED REC #: [id number] ~ ~PHYSICIAN: PENDING REFUGIO GANN MD ~Standard Progress Note ~Progress Notes/Assess Plan ~Date LOCATION Seen by a Provider: Aug 29, 2019 ~Time Seen by a Provi tanya: 10:46 [facility] ~Progress/Assessment Plan ~no complaints ~ ~Vital Sig ns ~ ~ ~ Date Time Temp (57983) Pulse Resp B/P (MAP) Pulse Ox O2 Delive ry O2 Flow Rate FiO2 ~ ~08/29/19 05:31 36.9 90 18 128/72 (90) 98 Room Air ~ ~08/28/19 20:18 100 Room Air ~ ~08/28/19 20:15 103 18 117/73 (88) 100 Room Air ~ ~08/28/19 1 6:44 36.8 84 18 115/72 (86) 99 Room Air ~ ~08/28/19 15:30 Room Air ~ ~08/28/19 11:53 35.6 84 16 119/75 98 Room Air ~ ~ ~ ~ ~I O ~ ~ 08/29/19 ~ ~ 07:00 ~ ~Intake Total 700 ml ~ ~Balance 700 ml ~ ~ ~Laboratory Tests ~ ~ ~Test ~ 08/29/19 ~04:42 Range/U nits ~ ~ ~White Blood Count ~ 8.1 ~ 4.3-11.0 ~10 3/uL ~ ~Red Blood Count ~ 2.78 L ~ 4.35-5.85 ~10 6/uL ~ ~Hemoglobin 8.2 L 11.5-16.0 G/DL ~ ~Hematocrit 26 L 35-52 % ~ ~Mean Corpuscular Volume 92 80-99 FL ~ ~Mean Corpuscular Hemoglobin 30 25-34 PG ~ ~Mean Corpuscular Hemoglobin ~Concent 32 ~ 32-36 G/DL ~ ~ ~Red Cell Distribution Width 14.7 H 10.0-14.5 % ~ ~Platelet Count ~ 268 ~ 1 30-400 ~10 3/uL ~ ~Mean Platelet Volume 9.1 7.4-10.4 FL ~ ~Neutrophils (%) (Aut o) 59 42-75 % ~ ~Lymphocytes (%) (Auto) 20 12-44 % ~ ~Monocytes (%) (Auto) 18 H 0-12 % ~ ~Eosinophils (%) (Auto) 2 0-10 % ~ ~Basophils (%) (Auto) 0 0-10 % ~ ~N eutrophils # (Auto) 4.8 1.8-7.8 X 10 3 ~ ~Lymphocytes # (Auto) 1.7 1.0-4.0 X 10 3 ~ ~Monocytes # (Auto) 1.5 H 0.0-1.0 X 10 3 ~ ~Eosinophils # (Auto) ~ 0.2 ~ 0. 0-0.3 ~10 3/uL ~ ~Basophils # (Auto) ~ 0.0 ~ 0.0-0.1 ~10 3/uL ~ ~Sodium Level 137 135-145 MMOL/L ~ ~Potassium Level 4.0 3.6-5.0 MMOL/L ~ ~Chloride Level 104 98 -107 MMOL/L ~ ~Carbon Dioxide Level 22 21-32 MMOL/L ~ ~Anion Gap 11 5-14 MMOL/ L ~ ~Blood Urea Nitrogen 11 7-18 MG/DL ~ ~Creatinine ~ 0.66 ~ 0.60-1.30 ~MG/DL ~ ~Estimat Glomerular Filtration ~Rate > 60 ~ ~ ~ ~BUN/Creatinine Ratio 17 ~ ~Gl ucose Level 105 70-105 MG/DL ~ ~Calcium Level 9.0 8.5-10.1 MG/DL ~ ~Corrected C alcium 9.5 8.5-10.1 MG/DL ~ ~Total Bilirubin 0.9 0.1-1.0 MG/DL ~ ~Aspartat e Amino Transf ~(AST/SGOT) 61 H ~ 5-34 U/L ~ ~ ~Alanine Aminotransferase ~(ALT /SGPT) 66 H ~ 0-55 U/L ~ ~ ~Alkaline Phosphatase 107 40-136 U/L ~ ~Total Pro tein 6.5 6.4-8.2 GM/DL ~ ~Albumin 3.4 3.2-4.5 GM/DL ~ ~LLE--dressing in place . No calf tenderness. Neg Shawn's ~s/p LTKA with quad repair ~PT/OT ~ok to SLR / quad sets with brace locked ~ ~ ~ ~REFUGIO GANN MD Aug 29, 2019 10:48 ~ ~ ~<Created by REFUGIO GANN MD> ~<Electronically signed by REFUGIO BARRAGAN MD> 08/29/19 1048 ~ ~ Note NAME: YADIRA FRANCES ~MED REC #: [id number] ~ ~PHYSICIAN: PENDING REFUGIO GANN MD ~Standard Progress Note ~Progress Notes/Assess Plan ~Date LOCATION Seen by a Provider: Aug 30, 2019 ~Time Seen by a Provi tanya: 07:56 [facility] ~Progress/Assessment Plan ~no complaints ~ ~Vital Sig ns ~ ~ ~ Date Time Temp (63841) Pulse Resp B/P (MAP) Pulse Ox O2 Delive ry O2 Flow Rate FiO2 ~ ~08/29/19 05:31 36.9 90 18 128/72 (90) 98 Room Air ~ ~08/28/19 20:18 100 Room Air ~ ~08/28/19 20:15 103 18 117/73 (88) 100 Room Air ~ ~08/28/19 1 6:44 36.8 84 18 115/72 (86) 99 Room Air ~ ~08/28/19 15:30 Room Air ~ ~08/28/19 11:53 35.6 84 16 119/75 98 Room Air ~ ~ ~ ~ ~I O ~ ~ 08/29/19 ~ ~ 07:00 ~ ~Intake Total 700 ml ~ ~Balance 700 ml ~ ~ ~Laboratory Tests ~ ~ ~Test ~ 08/29/19 ~04:42 Range/U nits ~ ~ ~White Blood Count ~ 8.1 ~ 4.3-11.0 ~10 3/uL ~ ~Red Blood Count ~ 2.78 L ~ 4.35-5.85 ~10 6/uL ~ ~Hemoglobin 8.2 L 11.5-16.0 G/DL ~ ~Hematocrit 26 L 35-52 % ~ ~Mean Corpuscular Volume 92 80-99 FL ~ ~Mean Corpuscular Hemoglobin 30 25-34 PG ~ ~Mean Corpuscular Hemoglobin ~Concent 32 ~ 32-36 G/DL ~ ~ ~Red Cell Distribution Width 14.7 H 10.0-14.5 % ~ ~Platelet Count ~ 268 ~ 1 30-400 ~10 3/uL ~ ~Mean Platelet Volume 9.1 7.4-10.4 FL ~ ~Neutrophils (%) (Aut o) 59 42-75 % ~ ~Lymphocytes (%) (Auto) 20 12-44 % ~ ~Monocytes (%) (Auto) 18 H 0-12 % ~ ~Eosinophils (%) (Auto) 2 0-10 % ~ ~Basophils (%) (Auto) 0 0-10 % ~ ~N eutrophils # (Auto) 4.8 1.8-7.8 X 10 3 ~ ~Lymphocytes # (Auto) 1.7 1.0-4.0 X 10 3 ~ ~Monocytes # (Auto) 1.5 H 0.0-1.0 X 10 3 ~ ~Eosinophils # (Auto) ~ 0.2 ~ 0. 0-0.3 ~10 3/uL ~ ~Basophils # (Auto) ~ 0.0 ~ 0.0-0.1 ~10 3/uL ~ ~Sodium Level 137 135-145 MMOL/L ~ ~Potassium Level 4.0 3.6-5.0 MMOL/L ~ ~Chloride Level 104 98 -107 MMOL/L ~ ~Carbon Dioxide Level 22 21-32 MMOL/L ~ ~Anion Gap 11 5-14 MMOL/ L ~ ~Blood Urea Nitrogen 11 7-18 MG/DL ~ ~Creatinine ~ 0.66 ~ 0.60-1.30 ~MG/DL ~ ~Estimat Glomerular Filtration ~Rate > 60 ~ ~ ~ ~BUN/Creatinine Ratio 17 ~ ~Gl ucose Level 105 70-105 MG/DL ~ ~Calcium Level 9.0 8.5-10.1 MG/DL ~ ~Corrected C alcium 9.5 8.5-10.1 MG/DL ~ ~Total Bilirubin 0.9 0.1-1.0 MG/DL ~ ~Aspartat e Amino Transf ~(AST/SGOT) 61 H ~ 5-34 U/L ~ ~ ~Alanine Aminotransferase ~(ALT /SGPT) 66 H ~ 0-55 U/L ~ ~ ~Alkaline Phosphatase 107 40-136 U/L ~ ~Total Pro tein 6.5 6.4-8.2 GM/DL ~ ~Albumin 3.4 3.2-4.5 GM/DL ~ ~LLE--dressing in place . No calf tenderness. Neg Shawn's ~s/p LTKA with quad repair ~PT/OT ~ok to SLR / quad sets with brace locked ~Final Diagnosis ~no complaints ~LLE brace in place no calf tenderness ~continue PT/OT ~ ~ ~ ~REFUGIO GANN MD Aug 30, 2019 07:57 ~ ~ ~<Created by REFUGIO GANN MD> ~<Electronically signed by REFUGIO GANN MD> 08/30/19 2514 ~ ~ Note NAME: YADIRA FRANCES ~MED REC #: [id number] ~ ~PHYSICIAN: PENDING REFUGIO GANN MD ~Standard Progress Note ~Progress Notes/Assess Plan ~Date LOCATION Seen by a Provider: Aug 31, 2019 ~Time Seen by a Provi tanya: 06:53 [facility] ~Progress/Assessment Plan ~no complaints ~ ~Vital Sig ns ~ ~ ~ Date Time Temp (31140) Pulse Resp B/P (MAP) Pulse Ox O2 Delive ry O2 Flow Rate FiO2 ~ ~08/29/19 05:31 36.9 90 18 128/72 (90) 98 Room Air ~ ~08/28/19 20:18 100 Room Air ~ ~08/28/19 20:15 103 18 117/73 (88) 100 Room Air ~ ~08/28/19 1 6:44 36.8 84 18 115/72 (86) 99 Room Air ~ ~08/28/19 15:30 Room Air ~ ~08/28/19 11:53 35.6 84 16 119/75 98 Room Air ~ ~ ~ ~ ~I O ~ ~ 08/29/19 ~ ~ 07:00 ~ ~Intake Total 700 ml ~ ~Balance 700 ml ~ ~ ~Laboratory Tests ~ ~ ~Test ~ 08/29/19 ~04:42 Range/U nits ~ ~ ~White Blood Count ~ 8.1 ~ 4.3-11.0 ~10 3/uL ~ ~Red Blood Count ~ 2.78 L ~ 4.35-5.85 ~10 6/uL ~ ~Hemoglobin 8.2 L 11.5-16.0 G/DL ~ ~Hematocrit 26 L 35-52 % ~ ~Mean Corpuscular Volume 92 80-99 FL ~ ~Mean Corpuscular Hemoglobin 30 25-34 PG ~ ~Mean Corpuscular Hemoglobin ~Concent 32 ~ 32-36 G/DL ~ ~ ~Red Cell Distribution Width 14.7 H 10.0-14.5 % ~ ~Platelet Count ~ 268 ~ 1 30-400 ~10 3/uL ~ ~Mean Platelet Volume 9.1 7.4-10.4 FL ~ ~Neutrophils (%) (Aut o) 59 42-75 % ~ ~Lymphocytes (%) (Auto) 20 12-44 % ~ ~Monocytes (%) (Auto) 18 H 0-12 % ~ ~Eosinophils (%) (Auto) 2 0-10 % ~ ~Basophils (%) (Auto) 0 0-10 % ~ ~N eutrophils # (Auto) 4.8 1.8-7.8 X 10 3 ~ ~Lymphocytes # (Auto) 1.7 1.0-4.0 X 10 3 ~ ~Monocytes # (Auto) 1.5 H 0.0-1.0 X 10 3 ~ ~Eosinophils # (Auto) ~ 0.2 ~ 0. 0-0.3 ~10 3/uL ~ ~Basophils # (Auto) ~ 0.0 ~ 0.0-0.1 ~10 3/uL ~ ~Sodium Level 137 135-145 MMOL/L ~ ~Potassium Level 4.0 3.6-5.0 MMOL/L ~ ~Chloride Level 104 98 -107 MMOL/L ~ ~Carbon Dioxide Level 22 21-32 MMOL/L ~ ~Anion Gap 11 5-14 MMOL/ L ~ ~Blood Urea Nitrogen 11 7-18 MG/DL ~ ~Creatinine ~ 0.66 ~ 0.60-1.30 ~MG/DL ~ ~Estimat Glomerular Filtration ~Rate > 60 ~ ~ ~ ~BUN/Creatinine Ratio 17 ~ ~Gl ucose Level 105 70-105 MG/DL ~ ~Calcium Level 9.0 8.5-10.1 MG/DL ~ ~Corrected C alcium 9.5 8.5-10.1 MG/DL ~ ~Total Bilirubin 0.9 0.1-1.0 MG/DL ~ ~Aspartat e Amino Transf ~(AST/SGOT) 61 H ~ 5-34 U/L ~ ~ ~Alanine Aminotransferase ~(ALT /SGPT) 66 H ~ 0-55 U/L ~ ~ ~Alkaline Phosphatase 107 40-136 U/L ~ ~Total Pro tein 6.5 6.4-8.2 GM/DL ~ ~Albumin 3.4 3.2-4.5 GM/DL ~ ~LLE--dressing in place . No calf tenderness. Neg Shawn's ~s/p LTKA with quad repair ~PT/OT ~ok to SLR / quad sets with brace locked ~Final Diagnosis ~feelling better ~LLE--incisi on clean and dry. No quad defect noted. Poor quad activation. Neg Shawn's ~s/p LTKA with quad repair ~continue PT/OT ~had lengthy discussion re expected out comes ~ ~ ~ ~REFUGIO GANN MD Aug 31, 2019 06:55 ~ ~ ~<Created by REFUGIO MIKE MD> ~<Electronically signed by REFUGIO GANN MD> 08/31/19 0655 ~ ~ Advance Directives Directive Response Recor ded Date Advance Directives N 12/08 7:10am Health Care Power of [employer]yer N 10/03/12 7:10am Organ Donor Y 10/03/12 7 :10am Directive Response Recor ded Date/Time Advance Directives No 9:39am Health Care Power of [employer]yer No 09/04/14 9:39am Organ Donor Yes 09/04/14 9:39am Resuscitation Status Full Code 09/04/14 9:39am Directive Response Recor ded Date/Time Advance Directives No 8:15am Health Care Power of [employer] [place]yer No 10/19/17 8:15am Organ Donor Yes 10/19/17 8:15am Resuscitation Status Full Code 10/19/17 8:15am Directive Response Recor ded Date/Time Advance Directives No 8:15am Health Care Power of [employer] Sawyer No 10/19/17 8:15am Organ Donor Yes 10/19/17 8:15am Discharge Instructions No hospital discharge instructions.No hospital discharge instruction information available.No hospital discharge instruction information available.No hospital discharge instruction information available. Additional Source Comments This clinical document has been generated using [employer] software that has been certified by the Office of the National Coordinator for Health Information Technology (ONC 15.99.04.3023.Diam.31.00.0.641603) and the National Committee for Trauma Manager (NCQA, as an eMeasure certified technology). FOR [...] BASED ON T HE PRIMARY CLINICAL RECORDS. [employer] provides no warranty or guara ntee of the accuracy or completeness of information in this document.The followi ng information is based on time limited clinical information
--- OUTSIDE RECORDS SUMMARY | 2019-08-31 21:37 | XMS REPORT | Continuity of Care Document ---
Author Organization Unknown Address Unknown Phone Unavailable Allergies Active Description Code Type Severity Reaction Onset Reported/Identified Relationship to Patient Clinical Status Yes pravastatin [id number] Drug Aller gy Unknown NAUSEA 09/02/2014 Yes cephalexin [id number] Drug Allerg y Moderate VOMITING 08/22/2019 Yes pravastatin [id number] Drug Aller gy Mild NAUSEA 08/22/2019 Medications [...] BEATS NEC 10/03/2012 AGGIE KIRK FACC, JUANJO FOOTE CCDS Ot 785.0 TACHYCARDIA NOS 10/03/2012 AGGIE KIRK FACC, JUANJO FOOTE CCDS Ot 785.1 PALPITATIONS 10/03/2012 AGGIE KIRK [facility], [facility] Ot V58.66 LONG-TERM (CURRENT) USE OF ASPIRIN 10/03/2012 [facility] Ot V58.69 OTH MED,LT,CURRENT USE 09/04/2014 REFUGIO MANZANARES MD Ot 845.09 SPRAIN OF ANKLE NEC 09/04/2014 REFUGIO MANZANARES MD Ot E000.8 OTHER EXTERNAL CAUSE STATUS 09/04/2014 REFUGIO MANZANARES MD Ot E928.9 ACCIDENT NOS 12/03/2015 Ot 427.69 PRE MATURE BEATS NEC 12/03/[address] PAIN NOS 12/03/2015 Ot 272.4 HYPE RLIPIDEMIA NEC/NOS 12/03/2015 Ot V58.69 OTH MED,LT,CURRENT USE 12/03/2015 AGGIE KIRK [facility], JUANJO [facility] CCDS Ot 272.4 HYPERLIPIDEMIA NEC/NOS 12/03/2015 BAIMA, ANITA L ORE DIGGER Ot 272.4 HYPERLIPIDEMIA NEC/NOS 12/03/2015 BAIMA, ANITA L ORE DIGGER Ot V58.69 OTH MED,LT,CURRENT USE 12/03/2015 BAIMA, ANITA L ORE DIGGER Ot 427.69 PREMATURE BEATS NEC 12/03/2015 BAIMA, ANITA L ORE DIGGER Ot 785.1 PALPITATIONS 12/03/2015 BAIMA, ANITA L ORE DIGGER Ot V58.66 LONG-TERM (CURRENT) USE OF ASPIRIN 12/03/2015 BAIMA, ANITA L ORE DIGGER Ot V58.69 OTH MED,LT,CURRENT USE 12/03/2015 BAIMA, ANITA L ORE DIGGER Ot 427.69 PREMATURE BEATS NEC 12/03/2015 BAIMA, ANITA L ORE DIGGER Ot 785.1 PALPITATIONS 12/03/2015 ISABEL KIRBY DO [...] 272.4 HYPERLIPIDEMIA NEC/NOS 12/04/2015 BAIMA, ANITA L ORE DIGGER Ot 272.4 HYPERLIPIDEMIA NEC/NOS 12/04/2015 BAIMA, ANITA L ORE DIGGER Ot V58.69 OTH MED,LT,CURRENT USE 12/04/2015 BAIMA, ANITA L ORE DIGGER Ot 427.69 PREMATURE BEATS NEC 12/04/2015 BAIMA ANITA L ORE DIGGER Ot 785.1 PALPITATIONS 12/04/2015 BAIMA ANITA L ORE DIGGER Ot V58.66 LONG-TERM (CURRENT) USE OF ASPIRIN 12/04/2015 BAIMA, ANITA L ORE DIGGER Ot V58.69 OTH MED,LT,CURRENT USE 12/04/2015 BAIMA, ANITA L ORE DIGGER Ot 427.69 PREMATURE BEATS NEC 12/04/2015 BAIMA ANITA L ORE DIGGER Ot 785.1 PALPITATIONS 12/04/2015 ISABEL KIRBY DO [...] 272.4 HYPERLIPIDEMIA NEC/NOS 01/02/2016 BAIMA, ANITA L ORE DIGGER Ot 272.4 HYPERLIPIDEMIA NEC/NOS 01/02/2016 BAIMA, ANITA L ORE DIGGER Ot V58.69 OTH MED,LT,CURRENT USE 01/02/2016 BAIMA, ANITA L ORE DIGGER Ot 427.69 PREMATURE BEATS NEC 01/02/2016 BAIMA, ANITA L ORE DIGGER Ot 785.1 PALPITATIONS 01/02/2016 BAIMA, ANITA L ORE DIGGER Ot V58.66 LONG-TERM (CURRENT) USE OF ASPIRIN 01/02/2016 BAIMA, ANITA L ORE DIGGER Ot V58.69 OTH MED,LT,CURRENT USE 01/02/2016 BAIMA, ANITA L ORE DIGGER Ot 427.69 PREMATURE BEATS NEC 01/02/2016 BAIMA, ANITA L ORE DIGGER Ot 785.1 PALPITATIONS 01/02/2016 ISABEL KIRBY DO [...] CCDS Ot R00.2 PALPITATIONS 01/05/2016 AGGIE KIRK [facility], ALI FACP CCDS Ot Z72.0 TOBACCO USE [...] Ot 272.4 HYPERLIPIDEMIA NEC/NOS 07/27/2017 BAIMAANITA Faye ORE DIGGER Ot 272.4 HYPERLIPIDEMIA NEC/NOS 07/27/2017 BAIANITA LIAO ORE DIGGER Ot V58.69 OTH MED,LT,CURRENT USE 07/27/2017 BAIANITA LIAO ORE DIGGER Ot 427.69 PREMATURE BEATS NEC 07/27/2017 BAIMAANITA ORE DIGGER Ot 785.1 PALPITATIONS 07/27/2017 BAIMAANITA L ORE DIGGER Ot V58.66 LONG-TERM (CURRENT) USE OF ASPIRIN 07/27/2017 BAIMA, ANITA L ORE DIGGER Ot V58.69 OTH MED,LT,CURRENT USE 07/27/2017 BAIMAANITA ORE DIGGER Ot 427.69 PREMATURE BEATS NEC 07/27/2017 BAIANITA LIAO ORE DIGGER Ot 785.1 PALPITATIONS 07/27/2017 ISABEL KIRBY DO Ot V76.12 OTH SCREEN MAMMO-MALIGN NEOPLASM OF GREGORY 07/27/2017 ISABEL KIRBY DO Ot 733.00 OSTEOPOROSIS NOS 07/27/2017 LEIGHTON KIRK, REFUGIO Montaño Ot 845.09 SPRAIN OF ANKLE NEC 07/27/2017 REFUGIO MANZANARES MD Ot E000.8 OTHER EXTERNAL CAUSE STATUS 07/27/2017 REFUGIO MANZANARES MD Ot E928.9 ACCIDENT NOS 07/27/2017 REFUGIO MANZANARES MD Ot V72.84 EXAM PRE-OPERATIVE [...] Ot I49 .3 VENTRICULAR PREMATURE DEPOLARIZATION 07/27/2017 TAMIR KIRK, Dany LEPE Ot Z72 .0 TOBACCO [...] PRIVATE GARAGE OF SINGLE-FAMILY (PRIVATE 10/13/2017 REFUGIO MANZANARSE MD Ot Z01.818 ENCOUNTER FOR OTHER PREPROCEDURAL [...] 272.4 HYPERLIPIDEMIA NEC/NOS 10/19/2017 BAIMA, ANITA L ORE DIGGER Ot 272.4 HYPERLIPIDEMIA NEC/NOS 10/19/2017 BAIMA, ANITA L ORE DIGGER Ot V58.69 OTH MED,LT,CURRENT USE 10/19/2017 BAIMA, ANITA L ORE DIGGER Ot 427.69 PREMATURE BEATS NEC 10/19/2017 BAIMA, ANITA L ORE DIGGER Ot 785.1 PALPITATIONS 10/19/2017 BAIMA ANITA L ORE DIGGER Ot V58.66 LONG-TERM (CURRENT) USE OF ASPIRIN 10/19/2017 BAIMA, ANITA L ORE DIGGER Ot V58.69 OTH MED,LT,CURRENT USE 10/19/2017 BAIMA, ANITA L ORE DIGGER Ot 427.69 PREMATURE BEATS NEC 10/19/2017 BAIMA ANITA L ORE DIGGER Ot 785.1 PALPITATIONS 10/19/2017 ISABEL KIRBY DO Ot V76.12 OTH SCREEN MAMMO-MALIGN NEOPLASM OF GREGORY 10/19/2017 ISABEL KIRBY DO Ot 733.00 OSTEOPOROSIS NOS 10/19/2017 REFUGIO MANZANARES MD Ot 845.09 SPRAIN OF ANKLE NEC 10/19/2017 REFUGIO MANZANARES MD Ot E000.8 OTHER EXTERNAL CAUSE STATUS 10/19/2017 REFUGIO MANZANARES MD Ot E928.9 ACCIDENT NOS 10/19/2017 REFUGIO MANZANARES MD Ot V72.84 EXAM PRE-OPERATIVE NOS 10/19/2017 LEIGTHON KIRK, REFUGIO Montaño Ot V74.8 SCREEN-BACTERIAL DIS [...] Ot Z72.0 TOBACCO USE 10/19/2017 AGGIE KIRK [facility], ALI FACP CCDS Ot E78.4 OTHER HYPERLIPIDEMIA 10/19/2017 AGGIE KIRK FAC, ALI FACP CCDS Ot I49.3 VENTRICULAR PREMATURE DEPOLARIZATION 10/19/2017 AGGIE KIRK [facility], ALI FACP CCDS Ot R00.2 PALPITATIONS 10/19/2017 AGGIE KIRK [facility], ALI FACP CCDS Ot Z72.0 TOBACCO USE [...] (PRIVATE 10/20/2017 REFUGIO MANZANARES MD, Ot Z79.82 FOLLOW UP MANAGER (CURRENT) USE OF ASPIRIN 12/25/2017 REFUGIO [...] E78.5 HYPERLIPIDEMIA, UNSPECIFIED 04/19/2019 AGGIE KIRK FACC, JUANJO FACP CCDS Ot I07.1 RHEUMATIC TRICUSPID INSUFFICIENCY 04/19/2019 AGGIE KIRK FACC, JUANJO FACP CCDS Ot I49.3 VENTRICULAR PREMATURE DEPOLARIZATION 04/19/2019 AGGIE KIRK FACC, JUANJO FACP CCDS Ot I77.89 OTHER SPECIFIED DISORDERS OF ARTERIES AN 04/19/2019 AGGIE KIRK FACC, JUANJO FACP CCDS Ot R00.2 PALPITATIONS 04/19/2019 AGGIE IKRK FACC, JUANJO FACP CCDS Ot R06.02 SHORTNESS OF BREATH 04/19/2019 AGGIE KIRK FACC, JUANJO FACP CCDS Ot Z72.0 TOBACCO USE 04/19/2019 AGGIE KIRK FACC, JUANJO FACP CCDS Ot Z79.82 [facility] (CURRENT) USE OF ASPIRIN 04/19/2019 AGGIE KIRK [facility], ALI FACP CCDS Ot Z79.899 OTHER [facility] (CURRENT) DRUG THERAPY 04/19/2019 AGGIE KIRK [facility], ALI FACP CCDS Ot E78.5 HYPERLIPIDEMIA, UNSPECIFIED 04/19/2019 AGGIE MD FACC, ALI FACP CCDS Ot I07.1 RHEUMATIC TRICUSPID INSUFFICIENCY 04/19/2019 AGGIE MD FACC, ALI FACP CCDS Ot I49.3 VENTRICULAR PREMATURE DEPOLARIZATION 04/19/2019 AGGIE MD [facility], ALI FACP CCDS Ot I77.89 OTHER SPECIFIED DISORDERS OF ARTERIES AN 04/19/2019 AGGIE KIRK [facility], ALI FACP CCDS Ot R00.2 PALPITATIONS 04/19/2019 AGGIE KIRK [facility], ALI FACP CCDS Ot R06.02 SHORTNESS OF BREATH 04/19/2019 AGGIE KIRK [facility], ALI FACP CCDS Ot Z72.0 TOBACCO USE 04/19/2019 AGGIE KIRK [facility], ALI FACP CCDS Ot Z79.82 [facility] (CURRENT) USE OF ASPIRIN 04/19/2019 AGGIE KIRK [facility], ALI FACP CCDS Ot Z79.899 OTHER FOLLOW UP MANAGER (CURRENT) DRUG THERAPY 06/14/2019 AGGIE KIRK [facility], ALI FACP CCDS Ot E78.5 HYPERLIPIDEMIA, UNSPECIFIED 06/14/2019 AGGIE KIRK [facility], ALI FACP CCDS Ot I07.1 RHEUMATIC TRICUSPID INSUFFICIENCY 06/14/2019 AGGIE KIRK [facility], ALI FACP CCDS Ot I49.3 VENTRICULAR PREMATURE DEPOLARIZATION 06/14/2019 AGGIE KIRK [facility], ALI FACP CCDS Ot I77.89 OTHER SPECIFIED DISORDERS OF ARTERIES AN 06/14/2019 AGGIE KIRK [facility], ALI FACP CCDS Ot R00.2 PALPITATIONS 06/14/2019 AGGIE KIRK [facility], ALI FACP CCDS Ot R06.02 SHORTNESS OF BREATH 06/14/2019 AGGIE KIRK [facility], ALI FACP CCDS Ot Z72.0 TOBACCO USE 06/14/2019 AGGIE KIRK [facility], ALI FACP CCDS Ot Z79.82 FOLLOW UP MANAGER (CURRENT) USE OF ASPIRIN 06/14/2019 AGGIE KIRK [facility], ALI FACP CCDS Ot Z79.899 OTHER FOLLOW UP MANAGER (CURRENT) DRUG THERAPY 08/23/2019 LEIGHTON KIRK, REFUGIO Montaño Ot E66.9 OBESITY, UNSPECIFIED 08/23/2019 LEIGHTON KIRK, REFUGIO Montaño Ot E78.00 PURE HYPERCHOLESTEROLEMIA, UNSPECIFIED 08/23/2019 LEIGHTON KIRK, REFUGIO Montaño Ot I1 0 ESSENTIAL (PRIMARY) HYPERTENSION 08/23/2019 LEIGHTON KIRK, REFUGIO Montaño Ot J30.2 OTHER SEASONAL ALLERGIC RHINITIS 08/23/2019 LEIGHTON KIRK, REFUGIO Montaño Ot K21.9 GASTRO-ESOPHAGEAL REFLUX DISEASE WITHOUT 08/23/2019 LEIGHTON KIRK, REFUGIO Montaño Ot M17.12 UNILATERAL PRIMARY OSTEOARTHRITIS, LEFT 08/23/2019 LEIGHTON KIRK, REFUGIO Montaño Ot M54.9 DORSALGIA, UNSPECIFIED 08/23/2019 LEIGHTON KIRK, REFUGIO Montaño Ot Q78.0 OSTEOGENESIS IMPERFECTA 08/23/2019 LEIGHTON KIRK, REFUGIO Montaño Ot Z68.33 BODY MASS INDEX (BMI) 33.0-33.9, ADULT 08/23/2019 LEIGHTON KIRK, REFUGIO Montaño Ot Z87.891 PERSONAL HISTORY OF NICOTINE DEPENDENCE 08/28/2019 LEIGHTON KIRK, REFUGIO Montaño Ot E66.9 OBESITY, UNSPECIFIED 08/28/2019 LEIGHTON KIRK, REFUGIO Montaño Ot E78.00 PURE HYPERCHOLESTEROLEMIA, UNSPECIFIED 08/28/2019 LEIGHTON KIRK, REFUGIO Montaño Ot E78.5 HYPERLIPIDEMIA, UNSPECIFIED 08/28/2019 LEIGHTON KIRK, REFUGIO Montaño Ot I1 0 ESSENTIAL (PRIMARY) HYPERTENSION 08/28/2019 LEIGHTON KIRK, REFUGIO Montaño Ot J30.2 OTHER SEASONAL ALLERGIC RHINITIS 08/28/2019 LEIGHTON KIRK, REFUGIO Montaño Ot K21.9 GASTRO-ESOPHAGEAL REFLUX DISEASE WITHOUT 08/28/2019 LEIGHTON KIRK, REFUGIO Montaño Ot M17.12 UNILATERAL PRIMARY OSTEOARTHRITIS, LEFT 08/28/2019 LEIGHTON KIRK, REFUGIO Montaño Ot M54.40 LUMBAGO WITH SCIATICA, UNSPECIFIED SIDE 08/28/2019 LEIGHTON KIRK, REFUGIO Montaño Ot M54.9 DORSALGIA, UNSPECIFIED 08/28/2019 LEIGHTON KIRK, REFUGIO Montaño Ot Q78.0 OSTEOGENESIS IMPERFECTA 08/28/2019 LEIGHTON KIRK, REFUGIO Montaño Ot S76.112A STRAIN OF LEFT QUADRICEPS MUSCLE, FASCIA 08/28/2019 LEIGHTON KIRK, REFUGIO Montaño Ot X50.9XXA OTHER AND UNSPECIFIED OVREXRTN OR STRNOU 08/28/2019 REFUGIO MANZANARES MD, Ot Y92.231 PATIENT BATHROOM IN HOSPITAL PLACE 08/28/2019 REFUGIO MANZANARES MD, Ot Z68.33 BODY MASS INDEX (BMI) 33.0-33.9, ADULT 08/28/2019 REFUGIO MANZANARES MD, Ot Z87.891 PERSONAL HISTORY OF NICOTINE DEPENDENCE Procedures Code Description Performed By Per formed On [id number] RE PLACE OF L KNEE JT WITH SYNTH SUB, CHRISTOPHER 08/22/2019 [id number] RE PAIR LEFT UPPER LEG TENDON, OPEN APPRO 08/24/2019 Results Test Result Range Methicillin resistant Staphylococcus [...] 8.5-10.1 Blood type T Indirect antibody screen [facility] - 08/15/19 11:45 ABO+Rh group AN NRG [...] Negative Blood type T Indirect antibody screen [facility] 08/22/19 06:32 WRISTBAND NUMBER [id number] NRG ABO+Rh group AN NRG Blood group antibody screen NEGATIVE NR G Whole blood hemoglobin and hematocrit [facility] 08/23/19 05:05 Venous blood hemoglobin measurement (mass/volume) 10.9 g/dL 11.5-16.0 Blood hematocrit (volume fraction) 34 % 35-52 Whole blood hemoglobin and hematocrit [facility] - 08/24/19 05:33 Venous blood hemoglobin measurement (mass/volume) 9.5 g/dL 11.5-16.0 Blood hematocrit (volume fraction) 30 % 35-52 Whole blood hemoglobin and hematocrit [facility] - 08/25/19 06:11 Venous blood hemoglobin measurement (mass/volume) 8.4 g/dL 11.5-16.0 Blood hematocrit (volume fraction) 27 % 35-52 Serum or plasma creatinine measurement ( mass/volume) - 08/28/19 08:00 Serum or plasma creatinine measurement (mass/volume) 0.63 mg/dL 0.60-1.30 Complete blood count (CBC) with automate d white blood cell (WBC) differential - 08/29/19 04:42 Blood leukocytes automated count (number/volume) 8.1 10*3/uL 4.3-11.0 Blood erythrocytes automated count (number/volume) 2.78 10*6/uL 4.35-5.85 Venous blood hemoglobin measurement (mass/volume) 8.2 g/dL 11.5-16.0 Blood hematocrit (volume fraction) 26 % 35-52 Automated erythrocyte mean corpuscular volume 92 [ foz_us] 80-99 Automated erythrocyte mean corpuscular h emoglobin (mass per erythrocyte) 30 pg 25-34 Automated erythrocyte mean corpuscular h emoglobin concentration measurement (mass/volume) 32 g/dL 32-36 Automated erythrocyte distribution width ratio 14. 7 % 10.0- 14.5 Automated blood platelet count (count/volume) 268 10*3/uL 130-400 Automated blood platelet mean volume measurement 9.1 [foz_us] 7.4-10.4 Automated blood neutrophils/100 leukocytes 59 % 42-75 Automated blood lymphocytes/100 leukocytes 20 % 12-44 Blood monocytes/100 leukocytes 18 % 0-12 Automated blood eosinophils/100 leukocytes 2 % 0-10 Automated blood basophils/100 leukocytes 0 % 0-10 Blood neutrophils automated count (number/volume) 4.8 10*3 1.8-7.8 Blood lymphocytes automated count (number/volume) 1.7 10*3 1.0-4.0 Blood monocytes automated count (number/volume) 1. 5 10*3 0.0-1.0 Automated eosinophil count 0.2 10*3/uL 0 .0-0.3 Automated blood basophil count (count/volume) 0.0 10*3/uL 0.0-0.1 Comprehensive metabolic panel - 08/29/19 04:42 Serum or plasma sodium measurement (moles/volume) 137 mmol/L 135-145 Serum or plasma potassium measurement (moles/volume) 4.0 mmol/L 3.6-5.0 Serum or plasma chloride measurement (moles/volume) 104 mmol/L 98-107 Carbon dioxide 22 mmol/L 21-32 Serum or plasma anion gap determination (moles/volume) 11 mmol/L 5-14 Serum or plasma urea nitrogen measurement (mass/volume ) 11 mg/dL 7-18 Serum or plasma creatinine measurement (mass/volume) 0.66 mg/dL 0.60-1.30 Serum or plasma urea nitrogen/creatinine mass ratio 17 NRG Serum or plasma creatinine measurement w ith calculation of estimated glomerular filtration rate > NRG Serum or plasma glucose measurement (mass/volume) 105 mg/dL 70-105 Serum or plasma calcium measurement (mass/volume) 9.0 mg/dL 8.5-10.1 Serum or plasma total bilirubin measurement (mass/volu me) 0.9 mg/dL 0.1-1.0 Serum or plasma alkaline phosphatase galo surement (enzymatic activity/volume) 107 U/L 40-136 Serum or plasma aspartate aminotransfera se measurement (enzymatic activity/volume) 61 U/L 5-34 Serum or plasma alanine aminotransferase measurement (enzymatic activity/volume) 66 U/L 0-55 Serum or plasma protein measurement (mass/volume) 6.5 g/dL 6.4-8.2 Serum or plasma albumin measurement (mass/volume) 3.4 g/dL 3.2-4.5 CALCIUM CORRECTED 9.5 mg/dL 8.5-10.1 IRON TEST - 08/29/19 04:42 Serum or plasma iron measurement (mass/volume) 27 % 35-180 Encounters ACCT No. Visit Date/Time Discharge Status Pt. Type Provider Facility Loc./Unit Complaint [id number] 08/22/2019 05:58:00 020 10:10:00 DIS Inpatient LEIGHTON KIRK, REFUGIO Montaño [facility] 4TH LEFT KNEE OSTEOARTHRITI S [id number] 08/17/2019 09:08:00 020 14:46:00 DIS Outpatient REFUGIO MANZANARES MD [facility] PREOP LEFT KNEE OSTEOARTHRIT IS [id number] 04/17/2019 11:40:00 020 23:59:59 CLS Outpatient AGGIE KIRK FACLydia, JUANJO FOOTE CC DS [facility] CARD CAD [id number] 01/18/2018 16:06:00 018 09:51:00 DIS Outpatient REFUGIO MANZANARES MD [facility] REHAB L KNEE MMT [id number] 12/21/2017 08:49:00 018 00:01:00 DIS Outpatient REFUGIO MANZANARES MD [facility] REHAB L KNEE MMT [id number] 12/14/2017 13:51:00 018 23:59:59 CLS Preadmit ISABEL KIRBY DO [facility] RAD M81.0 OSTEOPOROSIS [id number] 10/19/2017 08:08:00 018 12:25:00 DIS Outpatient REFUGIO MANZANARES MD [facility] SDC TORN LEFT MEDIAL MENIS CUS [id number] 10/12/2017 05:33:00 018 10:54:00 DIS Outpatient REFUGIO MANZANARES MD [facility] PREOP TORN LEFT MEDIAL MENIS CUS [id number] 07/27/2017 10:14:00 018 23:59:59 CLS Outpatient AGGIE KIRK FACC, JUANJO FOOTE CC DS [facility] RT R06.02 SOB [id number] 06/29/2017 15:55:00 018 23:59:59 CLS Outpatient ISABEL KIRBY DO [facility] RAD R05 [id number] 05/21/2016 09:20:00 017 23:59:59 CLS Outpatient Dany GARNETT MD [facility] CARD PVC,TOBACCO USER, VENTR ICULAR TACHYCARDIA [id number] 01/02/2016 13:55:00 016 23:59:59 CLS Outpatient AGGIE KIRK FACC, JUANJO JOHNSONP CC DS [facility] CARD PVC [id number] 12/05/2015 12:56:00 016 23:59:59 CLS Outpatient AGGIE KIRK FACC, JUANJO FACP CC DS [facility] CARD CHEST DISCOMFORT,PVC,SOB [id number] 12/04/2015 08:01:00 016 23:59:59 CLS Outpatient AGGIE KIRK FACC, JUANJO JOHNSONP CC DS [facility] CARD CHEST DISCOMFORT,PVS,SOB [id number] 09/04/2014 09:00:00 015 14:11:00 DIS Outpatient REFUGIO MANZANARES MD [facility] SDC LEFT ACHILLES TENDON T EAR [id number] 09/02/2014 13:53:00 015 23:59:59 CLS Outpatient REFUGIO MANZANARES MD [facility] PREOP LEFT TORN ACHILLES TEN DON [id number] 10/18/2013 08:36:00 014 23:59:59 CLS Outpatient ISABEL KIRBY DO [facility] RAD 733.00 [id number] 03/27/2013 17:54:00 013 23:59:59 CLS Outpatient [id number] 03/23/2013 09:40:00 013 23:59:59 CLS Outpatient ANITA TREVIÑO [facility] LAB HLP,[place] [id number] 01/26/2013 10:48:00 013 23:59:59 CLS Outpatient ISABEL KIRBY DO [facility] RAD SCREENING [id number] 10/03/2012 06:57:00 14:00:00 DIS Outpatient JUANJO MARCIAL MD, FACC, FACP CC DS [facility] CATH WIDE COMPLE X TACHYCARDIA,PALPITATIONS [id number] 09/27/2012 10:13:00 07/03/2 013 23:59:59 CLS Outpatient ANITA TREVIÑO ORE DIGGER [facility] CARD PVC,PALPITATION S [id number] 09/26/2012 09:02:00 23:59:59 CLS Outpatient ANITA TREVIÑO ORE DIGGER [facility] CARD PVC'S,PALPITATI ONS [id number] 09/19/2012 07:00:00 23:59:59 CLS Outpatient AGGIE KIRK FACC, JUANJO FOOTE CC DS [facility] LAB HLP [id number] 08/28/2019 10:05:[address] Inpatient JUAN JOSE SNYDER DO [facility] IRF LT TKA [id number] 11/16/2017 11:39:00 Document Registration [id number] 06/23/2012 08:01:00 Document Registration [id number] 02/24/2012 18:50:00 Document Registration [id number] 01/24/2012 09:56:00 Document Registration [id number] 08/31/2011 07:47:00 Document Registration
[2019-08-31] MEDS ORDERED: meTOprolol 5 MG/5 ML (LOPRESSOR) VIAL ONE (21:40)
[2019-08-31 21:45] VITALS: BP 128/66
[2019-08-31] MEDS ORDERED: meTOprolol 5 MG/5 ML (LOPRESSOR) VIAL IV ONE (21:45)
[2019-08-31] MEDS: NS IV 1000 ML 1,000 ML IV SCH (21:50)
[2019-08-31 22:00] VITALS: BP 124/64
[2019-08-31] MEDS ORDERED: VANCOMYCIN INJECTION 0.1 MG in NS (IVPB) 250 ML IV SCH (22:00)
[2019-08-31] MEDS ORDERED: polyethylene glycoL POWDER 17 GM (MIRALAX) PACK PO PRN (22:00)
--- NOTE | 2019-08-31 22:00 | NUR ---
LOPRESSOR 5MG GIVEN IV. ABG RESULTS CALLED TO CELY. IBUPROFEN ORDERED BY DR BRIGGS D/T TEMP NOT COMING DOWN AFTER TYLENOL EARLIER
[2019-08-31 22:02] LABS: ABG BASE EXCESS -1.6 MMOL/L (-2.5-2.5); ABG OXYGEN SATURATION 96 % (94-100); ABG PCO2 31 MMHG (35-45); ABG PH 7.47 (7.37-7.43); ABG PO2 83 MMHG (79-93); ABG TCO2 22.1 MMOL/L (21.0-31.0)
[2019-08-31 22:03] LABS: ALLENS TEST POSITIVE; INSPIRED O2 RA; VENTILATOR NO
[2019-08-31] MEDS ORDERED: NS (IVPB) 250 ML ONE (22:10)
[2019-08-31] MEDS ORDERED: PIPERACILLIN/TAZO 4.5 GM VIAL (ZOSYN) IV ONE (22:10)
[2019-08-31] MEDS ORDERED: NS (IVPB) 100 ML ONE (22:11)
[2019-08-31] MEDS ORDERED: VANCOMYCIN 1000 MG/VIAL ONE (22:11)
[2019-08-31 22:15] VITALS: BP 123/63
[2019-08-31] MEDS ORDERED: PIPERACILLIN/TAZO 4.5 GM/NS 100 ML IV ONE ×2 (22:15)
[2019-08-31] MEDS ORDERED: ENOXAPARIN 60 MG/0.6 ML (LOVENOX) SYR ONE (22:18)
[2019-08-31] MEDS: IBUPROFEN 600 MG (MOTRIN) TAB PO PRN (22:23)
[2019-08-31 22:30] VITALS: BP 125/67
--- NOTE | 2019-08-31 22:30 | NUR ---
TO RADIOLOGY FOR CTA OF CHEST
[2019-08-31 23:00] VITALS: BP 129/60
--- NOTE | 2019-08-31 23:00 | NUR ---
pt's friend Ramandeep notified of transfer to icu per pt request
[2019-08-31] MEDS ORDERED: HOLD METFORMIN - RECEIVED CONTRAST 20 ML VIAL IV SCH (23:15)
[2019-08-31] MEDS ORDERED: NS 100 ML (IVPB) BAG IV ONE (23:15)
[2019-08-31] MEDS ORDERED: IOHEXOL 350 MG/ML 100 ML (OMNIPAQUE 350) VIAL IV ONE (23:15)
[2019-09-01] VITALS (24 sets, daily range): BP systolic 75–134; BP diastolic 44–73
[2019-09-01 01:45] LABS: BASOPHILS % (AUTO) 0 % (0-10); EOSINOPHILS % (AUTO) 0 % (0-10); HEMATOCRIT 27 % (35-52); HEMOGLOBIN 8.3 G/DL (11.5-16.0); LYMPHOCYTES # (AUTO) 0.4 X 10^3 (1.0-4.0); LYMPHOCYTES % (AUTO) 3 % (12-44); MEAN CORPUSCULAR HEMOGLOBIN 29 PG (25-34); MEAN CORPUSCULAR HGB CONC 31 G/DL (32-36); MEAN CORPUSCULAR VOLUME 92 FL (80-99); MEAN PLATELET VOLUME 8.5 FL (7.4-10.4); MONOCYTES # (AUTO) 0.1 X 10^3 (0.0-1.0); MONOCYTES % (AUTO) 1 % (0-12); NEUTROPHILS # (AUTO) 12.1 X 10^3 (1.8-7.8); NEUTROPHILS % (AUTO) 96 % (42-75); PLATELET COUNT 302 10^3/uL (130-400); RED CELL DISTRIBUTION WIDTH 15.9 % (10.0-14.5); WHITE BLOOD COUNT 12.6 10^3/uL (4.3-11.0)
[2019-09-01 01:55] LABS: POTASSIUM 3.1 MMOL/L (3.6-5.0)
[2019-09-01 01:56] LABS: CALCIUM 8.7 MG/DL (8.5-10.1)
[2019-09-01 02:00] LABS: PHOSPHORUS 2.2 MG/DL (2.3-4.7)
[2019-09-01 02:01] LABS: CREATININE SERUM 0.96 MG/DL (0.60-1.30)
[2019-09-01 02:03] LABS: MAGNESIUM 1.8 MG/DL (1.6-2.4)
[2019-09-01] MEDS: POTASSIUM CL 10MEQ/50ML IVPB 50 ML IV SCH ×5 (02:34→05:26)
[2019-09-01] MEDS ORDERED: PIPERACILLIN/TAZO 4.5 GM VIAL (ZOSYN) IV ONE (02:42)
[2019-09-01] MEDS ORDERED: NS (IVPB) 100 ML ONE (02:42)
--- NOTE | 2019-09-01 03:27 | NUR ---
BP 84/44, EICU NOTIFIED, BOLUS ORDER REC
[2019-09-01] MEDS ORDERED: VANCOMYCIN 1 GM/NS 250 ML IVPB IV SCH ×2 (03:30)
[2019-09-01] MEDS ORDERED: NS (IVPB) 250 ML ONE (03:32)
[2019-09-01] MEDS ORDERED: VANCOMYCIN 1000 MG/VIAL ONE (03:32)
[2019-09-01] MEDS: PIPERACILLIN/TAZOBACTAM (BULK) 4.5 GM in NS (IVPB) 100 ML IV SCH ×3 (04:17→20:13)
--- NOTE | 2019-09-01 04:17 | NUR ---
BP 79/45 AFTER BOLUS, EICU NOTIFIED, ORDER REC FOR ANOTHER 1 LITER BOLUS
[2019-09-01] MEDS: MAGNESIUM 1 GM/100 ML IVPB 100 ML IV SCH (04:18)
[2019-09-01] MEDS: KCL 20 MEQ TAB (K-DUR) PO SCH (04:18)
[2019-09-01] MEDS ORDERED: NS IV 1000 ML 1,000 ML IV SCH (05:30)
--- NOTE | 2019-09-01 06:25 | NUR ---
PRESSURES NOW READING 105/63
[2019-09-01] MEDS: NS IV 1000 ML 1,000 ML IV SCH ×3 (06:26→22:20)
--- NOTE | 2019-09-01 07:13 | Diagnostic Imaging Report ---
Clinical indications: Followup, fever. IC management. Exam: Portable chest x-ray upright view. Comparisons: Portable chest x-ray dated 08/31/2019. Findings: Lungs/pleura: Lungs are clear. There is no pneumothorax. There is no pleural effusion. Mediastinum: Unremarkable. Pulmonary vasculature: Unremarkable. Heart: Unremarkable. Bones/extrathoracic soft tissue: There are hypertrophic spurs involving the thoracic spine. Impression: There is no radiographic evidence of acute cardiopulmonary process. Dictated by: Dictated on workstation # [id number]
--- NOTE | 2019-09-01 07:21 | Diagnostic Imaging Report ---
CLINICAL INDICATION: Patient with fever. Patient had left total knee on 08/22/2019. EXAM: CT angiogram of the chest performed with 100 cc Omnipaque 350 IV contrast. Coronal and oblique MIP images of the vasculature were created to better evaluate anatomy. Auto Exposure Controls were utilized during the CT exam to meet ALARA standards for radiation dose reduction. COMPARISON: Chest x-ray dated 08/31/2019. FINDINGS: There is slightly diminished contrast opacification of the bilateral pulmonary arteries slightly limiting evaluation. There is dense contrast bolus within the superior vena cava which also causes streak artifact obscuring portions of the mediastinum. There is no gross evidence of pulmonary embolism. There is no thoracic aortic dissection or aneurysm. Lungs are clear. There is no pleural effusion pneumothorax. There is no mediastinal or axillary lymphadenopathy. Mediastinal structures and heart shows no significant abnormality. The visualized portions of the upper abdominal structures are unremarkable. There are hypertrophic spurs involving the thoracic spine. There is slight enlargement of the thyroid gland noted. IMPRESSION: 1: There is no evidence of pulmonary embolism, as visualized. There is no thoracic aortic aneurysm or dissection. 2: There is no acute cardiopulmonary process seen. 3: There is slight enlargement of the thyroid gland noted. Nonemergent thyroid ultrasound would better evaluate. I agree with [employer] report. Dictated by: Dictated on workstation # [id number]
--- NOTE | 2019-09-01 07:22 | NUR ---
CR 0.96; CR CL > 60; WT 93 KG; VANCO 2 GM GIVEN OVERNIGHT; CONTINUE WITH VANCO 1000 MG IV Q12H; TROUGH AFTER 3RD DOSE
[2019-09-01] MEDS: ENOXAPARIN 100 MG/1 ML (LOVENOX) SYR SC SCH ×2 (08:15→20:13)
--- NOTE | 2019-09-01 08:27 | Progress Note ---
Standard Progress Note Progress Notes/Assess & Plan Date Seen by a Provider: Sep 01, 2019 Time Seen by a Provider: 08:24 Progress/Assessment & Plan feeling much better today. Denies knee pain Vital Signs Date Time Temp Pulse Resp B/P (MAP) Pulse Ox O2 Delivery O2 Flow Rate FiO2 09/01/19 06:00 84 20 109/68 (82) 99 Nasal Cannula 2.00 09/01/19 05:00 83 18 104/63 (77) 100 Nasal Cannula 2.00 09/01/19 04:00 86 18 75/55 (62) 98 Nasal Cannula 2.00 09/01/19 04:00 37.2 09/01/19 04:00 94 Nasal Cannula 2.00 09/01/19 03:00 93 20 84/44 (57) 100 Nasal Cannula 2.00 09/01/19 02:00 100 18 95/56 (69) 91 Nasal Cannula 2.00 09/01/19 01:00 106 09/01/19 01:00 106 16 98/59 (72) 94 Nasal Cannula 2.00 09/01/19 00:49 36.7 Nasal Cannula 2.00 09/01/19 00:00 94 Nasal Cannula 2.00 09/01/19 00:00 115 18 100/57 (71) 96 Room Air 08/31/19 23:00 117 23 129/60 (83) 92 Room Air 08/31/19 23:00 37.7 08/31/19 22:30 120 22 125/67 (86) 94 Room Air 08/31/19 22:15 120 23 123/63 (83) 92 Room Air 08/31/19 22:00 121 16 124/64 (84) 92 Room Air 08/31/19 21:45 147 17 128/66 (86) 96 Room Air 08/31/19 21:30 39.0 08/31/19 21:30 148 I & O 09/01/19 07:00 Intake Total 670 ml Output Total 850 ml Balance -180 ml Laboratory Tests Test 08/31/19 21:55 08/31/19 23:10 09/01/19 01:30 Range/Units Blood Gas Puncture Site LEFT RADIAL Blood Gas Patient Temperature 39.0 Arterial Blood pH 7.47 H 7.37-7.43 Arterial Blood Partial Pressure CO2 31 L 35-45 MMHG Arterial Blood Partial Pressure O2 83 79-93 MMHG Arterial Blood HCO3 21 L 23-27 MMOL/L Arterial Blood Total CO2 22.1 21.0-31.0 MMOL/L Arterial Blood Oxygen Saturation 96 94-100 % Arterial Blood Base Excess -1.6 -2.5-2.5 MMOL/L Can Test POSITIVE Blood Gas Ventilator Setting NO Blood Gas Inspired Oxygen RA Lactic Acid Level 2.77 *H 1.47 0.50-2.00 MMOL/L White Blood Count 12.6 H 4.3-11.0 10^3/uL Red Blood Count 2.87 L 4.35-5.85 10^6/uL Hemoglobin 8.3 L 11.5-16.0 G/DL Hematocrit 27 L 35-52 % Mean Corpuscular Volume 92 80-99 FL Mean Corpuscular Hemoglobin 29 25-34 PG Mean Corpuscular Hemoglobin Concent 31 L 32-36 G/DL Red Cell Distribution Width 15.9 H 10.0-14.5 % Platelet Count 302 130-400 10^3/uL Mean Platelet Volume 8.5 7.4-10.4 FL Neutrophils (%) (Auto) 96 H 42-75 % Lymphocytes (%) (Auto) 3 L 12-44 % Monocytes (%) (Auto) 1 0-12 % Eosinophils (%) (Auto) 0 0-10 % Basophils (%) (Auto) 0 0-10 % Neutrophils # (Auto) 12.1 H 1.8-7.8 X 10^3 Lymphocytes # (Auto) 0.4 L 1.0-4.0 X 10^3 Monocytes # (Auto) 0.1 0.0-1.0 X 10^3 Eosinophils # (Auto) 0.0 0.0-0.3 10^3/uL Basophils # (Auto) 0.0 0.0-0.1 10^3/uL Sodium Level 134 L 135-145 MMOL/L Potassium Level 3.1 L 3.6-5.0 MMOL/L Chloride Level 101 98-107 MMOL/L Carbon Dioxide Level 20 L 21-32 MMOL/L Anion Gap 13 5-14 MMOL/L Blood Urea Nitrogen 14 7-18 MG/DL Creatinine 0.96 0.60-1.30 MG/DL Estimat Glomerular Filtration Rate 59 BUN/Creatinine Ratio 15 Glucose Level 108 H 70-105 MG/DL Calcium Level 8.7 8.5-10.1 MG/DL Phosphorus Level 2.2 L 2.3-4.7 MG/DL Magnesium Level 1.8 1.6-2.4 MG/DL L knee incision clean and dry without erythema or warmth. echymosis present. no calf tenderness. Neg Shawn's s/p L TKA with subsequent quad rupture and repair i do not believe the knee is the source of the patient's decompensation. Ok to continue PT from my standpoint Focused Exam Lactate Level 08/31/19 23:10: Lactic Acid Level 2.77*H 09/01/19 01:30: Lactic Acid Level 1.47 REFUGIO MANZANARES MD Sep 01, 2019 08:27
--- NOTE | 2019-09-01 09:57 | History & Physical-Hospitalist ---
History of Present Illness HPI/Chief Complaint Pt is a 64yoCF with a PMH of osteogenesis imperfecta who underwent TKA and quadriceps rupture repair last week. She was admitted to rehab following these surgeries but developed hypotension, fever, and tachycardia overnight and was transferred to the ICU. There was concern for sepsis and CXR and UA were done and were normal. Dr Gann and I examined her knee which does not appear to be infected and is healing well. CTA was done to rule out PE and was negative. It did not show any ground glasss opacities either. She does not have a cough and is on room air. This morning she states she is feeling better but still mentally foggy. No other complaints or concerns. Source: patient Date Seen 09/01/19 Time Seen by a Provider: 09:52 Attending Physician Chris Vasquez MD PCP No,Local Physician Referring Physician Date of Admission Aug 31, 2019 at 21:30 Home Medications & Allergies Home Medications Reviewed patient Home Medication Reconciliation performed by pharmacy medication reconciliations lidar technician and/or nursing. Patients Allergies have been reviewed. Allergies Allergies Coded Allergies cephalexin (Unverified Adverse Reaction, Intermediate, VOMITING, 08/22/19) pravastatin (Unverified Adverse Reaction, Mild, NAUSEA, 08/22/19) Past Wkxxlkw-Bhgkid-Xfywld Hx Past Med/Social Hx: Reviewed Nursing Past Med/Soc Hx Patient Social History Employed/Student: employed Alcohol Use: Denies Use Recreational Drug Use: No Smoking Status: Current Everyday Smoker Type Used: Cigarettes Physical Abuse Screen: No Sexual Abuse: No Recent Foreign Travel: No Contact w/other who traveled: No Recent Hopitalizations: No Recent Infectious Disease Expo: No Immunizations Up To Date Date of Influenza Vaccine: Jan 10, 2017 Seasonal Allergies Seasonal Allergies: Yes Past Medical History Surgeries: Orthopedic Cardiac: High Cholesterol, Hypertension, Irregular Heartbeat Reproductive: No Sexually Transmitted Disease: No HIV/AIDS: No Female Reproductive Disorders: Ovarian Cyst Gastrointestinal: Gastroesophageal Reflux Musculoskeletal: Arthritis, Chronic Back Pain Loss of Vision: Bilateral History of Blood Disorders: No Adverse Reaction to Blood Loza: No (N/A) Family History Reviewed Nursing Family Hx Alcoholism G8 BROTHER, Onset:25's - 30 Arthritis 19 MOTHER, , Age:60 years and older G8 SISTER Cardiovascular disease 19 FATHER, , Age:60 years and older 19 MOTHER, , Age:60 years and older G8 BROTHER G8 BROTHER G8 BROTHER G8 SISTER G8 SISTER Cataracts 19 MOTHER, , Age:60 years and older G8 BROTHER Colon cancer G8 BROTHER G8 BROTHER Glaucoma 19 MOTHER, , Age:60 years and older Respiratory disorder G8 BROTHER Review of Systems Constitutional: chills, diaphoresis, fever EENTM: no symptoms reported Respiratory: No cough, No phlegm Cardiovascular: No chest pain, No Hx of Intervention, No palpitations Gastrointestinal: No abdominal pain, No nausea, No vomiting Genitourinary: decreased output; No dysuria Skin: no symptoms reported Psychiatric/Neurological: No Symptoms Reported Physical Exam Physical Exam Vital Signs Vital Signs - First Documented 08/31/19 08/31/19 09/01/19 21:30 21:45 00:00 Temp 39.0 Pulse 148 Resp 17 B/P (MAP) 128/66 (86) Pulse Ox 96 O2 Delivery Room Air O2 Flow Rate 2.00 Capillary Refill : Height, Weight, BMI Height: 5'4.00" Weight: 183lbs. 5.0oz. 83.873550oy; 35.43 BMI Method:Stated General Appearance: No Apparent Distress, Chronically ill, Obese HEENT: PERRL/EOMI, Moist Mucous Membranes Neck: Normal Inspection, Supple; No Thyromegaly Respiratory: Lungs Clear, No Accessory Muscle Use, No Respiratory Distress Cardiovascular: Regular Rate, Rhythm, No Murmur Gastrointestinal: Normal Bowel Sounds, Non Tender, Soft Extremity: No No Calf Tenderness; No Pedal Edema; No Swelling Neurologic/Psychiatric: Alert, Oriented x3, Normal Mood/Affect Skin: Normal Color, Warm/Dry Results Results/Procedures Labs Laboratory Tests 09/01/19 01:30 Patient resulted labs reviewed. Imaging: Reviewed Imaging Report Assessment/Plan Admission Diagnosis Fever Admission Status: Observation Assessment and Plan Fever unclear etiology CXR, CTA, and UA negative for source of infection Blood cultures pending No symptoms of COVID19 and CPR negative preop Tachycardia sinus tach Cardiology involved Continue metoprolol and BP allows Improving s/p TKA and quadriceps repair Ortho consulted, appreciate recs PT/OT Hopefully able to return to IRU tomorrow Clinical Quality Measures DVT/VTE Risk/Contraindication: Risk Factor Score Per Nursin RFS Level Per Nursing on Admit: 4+=Very High CHRIS VASQUEZ MD Sep 01, 2019 09:57
--- NOTE | 2019-09-01 11:29 | Occupational Therapy Eval ---
OT Evaluation-General/PLF Medical Diagnosis Admission Date Aug 31, 2019 at 21:30 Medical Diagnosis: Sepsis Onset Date: Aug 31, 2019 Therapy Diagnosis Therapy Diagnosis: Weaknss Height/Weight Height (Feet): 5 Height (Inches): 4.00 Weight (Pounds): 183 Weight (Ounces): 5.0 Precautions Precautions/Isolations: Fall Prevention, Standard Precautions Weight Bear Status Weight Bearing Restriction: Non Weight Bearing Location Restriction: L LE Referral Physician: Dr. Vasquez Referral Reason: Activity Tolerance, Self Care, Evaluation/Treatment, Strengthening/ROM Medical History Additional Medical History Knee replacement, quad repair. Current History Pt. on rehab unit. Doing well. Became septic and transferred to ICU. Reviewed History: Yes Social History Home: Single Level Current Living Status: Friend ADL-Prior Level of Function SCALE: Activities may be completed with or without assistive devices. 9-Ypjteyrblj-wgepbto completes the activity by him/herself with no assistance from a helper. 5-Set-up or Clean-up Assistance-helper sets up or cleans up; patient completes activity. [place] assists only prior to or following the activity. 4-Supervision or Touching Assistance-helper provides verbal cues and/or touching/steadying and/or contact guard assistance as patient completes activity. Assistance may be provided throughout the activity or intermittently. 3-Partial/Moderate Assistance-helper does LESS THAN HALF the effort. [place] lifts, holds or supports trunk or limbs, but provides less than half the effort. 2-Substantial/Maximal Assistance-helper does MORE THAN HALF the effort. [place] lifts or holds trunk or limbs and provides more than half the effort. 5-Rhmbejfhp-lrkwyt does ALL the effort. Patient does none of the effort to complete the activity. Or, the assistance of 2 or more helpers is required for the patient to complete the activity. If activity was not attempted, code reason: 7-Patient Refused. 9-Not Applicable-not attempted and the patient did not perform the activity before the current illness, exacerbation or injury. 10-Not Attempted due to Environmental Limitations-(lack of equipment, weather restraints, etc.). 88-Not Attempted due to Medical Conditions or Safety Concerns. ADL PLOF Comments Pt. was independent with daily skills. Self Care: Independent Functional Cognition: Independent Occupation: [address] Self: Yes OT Current Status Subjective Pt. reports, "I'm feeling better." Appearance Pt. in bed. Agrees to work with Ot. Mental Status/Objective Patient Orientation: Person, Place, Time, Situation Current Upper Extremity ROM WFL ADL-Treatment On/Off Footwear (QC): 2 Pt. transferred supine-sit with min assist for guidance of left LE. Pt. able to scoot to side, and sit EOB approximately 20 minutes. Pt. unable to reach her feet. States that she is feeling better, but feels very weak. [place] [facility] [place] coming into room. States that her arms felt shaky while holding onto walker. Pt. reports feeling dizzy, and was assisted back to bed with min assist. BP 124/53 and 02 sats at 99%. HR-100. All needs are met in bed. Education OT Patient Education: Correct positioning, Modified ADL techniques, Progress toward Goal/Update tx plan, Purpose of tx/functional activities, Reviewed precautions, Rehab process, Transfer techniques Teaching Recipient: Patient Teaching Methods: Demonstration, Discussion Response to Teaching: Verbalize Understanding, Return Demonstration OT Detention Goals Interface Engineer Goals Time Frame: Sep 15, 2019 Eating (QC): 6 Oral Hygiene (QC): 6 Toileting Hygiene (QC): 6 Shower/Bathe Self (QC): 6 Upper Body Dressing (QC): 6 Lower Body Dressing (QC): 6 On/Off Footwear (QC): 6 Additional Goals: 1-Demonstrate ADL Tasks, 2-Verbalize Understanding, 3- ImproveStrength/Alexsandra 1=Demonstrate adherence to instructed precautions during ADL tasks. 2=Patient will verbalize/demonstrate understanding of assistive devices/modifications for ADL. 3=Patient will improve strength/tolerance for activity to enable patient to perform ADL's. OT Education/Plan Problem List/Assessment Assessment: Decreased Activ Tolerance, Impaired I ADL's, Impaired Self-Care Skills Discharge Recommendations Plan/Recommendations: Continue POC Therapy Discharge Recommendati: Post Acute OT Equpiment Recommendations-D/C: Hip Kit Treatment Plan/Plan of Care Treatment,Training & Education: Yes Patient would benefit from OT for education, treatment and training to promote independence in ADL's, mobility, safety and/or upper extremity function for ADL's. Plan of Care: ADL Retraining, Functional Mobility Treatment Duration: Sep 15, 2019 Frequency: 5 times per week Estimated Hrs Per Day: .5 hour per day Agreement: Yes Rehab Potential: Good Time/GCodes Start Time: 10:25 Stop Time: 10:54 Total Time Billed (hr/min): 29 Billed Treatment Time 1, EVM x 15minutes, ADL x 14minutes KIRAN PENNINGTON OT Sep 01, 2019 11:29
--- NOTE | 2019-09-01 12:21 | Consultation-Cardiology ---
HPI-Cardiology Cardiology Consultation Date of Consultation 09/01/19 Date of Admission Time Seen by Provider: 12:17 Indication: Tachycardia HPI 64 years old lady with history of mild coronary artery disease, last stress test done in March 2019, underwent TKA with quadriceps rupture repair done by Dr. Gann last week. Patient was in rehabilitation and was doing well until yest erday when she had the sudden progression of shortness of breath, hypotension, lightheadedness and fever. Patient was transferred to the intensive care unit. Had septic workup done and started on antibiotics. On my evaluation patient appeared to be sitting comfortably, feeling better, still having pain at the surgical site. Denied any chest pain. Having mild cough. Not requiring any oxygen. Blood pressure is stable Home Medications & Allergies Allergies: Coded Allergies: cephalexin (Unverified Adverse Reaction, Intermediate, VOMITING, 08/22/19) pravastatin (Unverified Adverse Reaction, Mild, NAUSEA, 08/22/19) Home Medication List Reviewed: Yes FEF-Kuqmwi-Haaxhu Hx Patient Social History Marital Status: Employed/Student: employed Alcohol Use: Denies Use Recreational Drug Use: No Smoking Status: Current Everyday Smoker Type Used: Cigarettes Recent Foreign Travel: No Recent Infectious Disease Expo: No Recent Hopitalizations: No Physical Abuse Screen: No Sexual Abuse: No Immunizations Up To Date Date of Influenza Vaccine: Jan 10, 2017 Past Medical History Discussed below Family Medical History Family History: Alcoholism G8 BROTHER, Onset:25's - 30 Arthritis 19 MOTHER, , Age:60 years and older G8 SISTER Cardiovascular disease 19 FATHER, , Age:60 years and older 19 MOTHER, , Age:60 years and older G8 BROTHER G8 BROTHER G8 BROTHER G8 SISTER G8 SISTER Cataracts 19 MOTHER, , Age:60 years and older G8 BROTHER Colon cancer G8 BROTHER G8 BROTHER Glaucoma 19 MOTHER, , Age:60 years and older Respiratory disorder G8 BROTHER Review of Systems-General Review of Systems Constitutional: see HPI, chills, diaphoresis, fever EENTM: see HPI, no symptoms reported Respiratory: see HPI; No cough, No phlegm Cardiovascular: see HPI; No chest pain, No Hx of Intervention, No palpitations Gastrointestinal: see HPI; No abdominal pain, No nausea, No vomiting Genitourinary: see HPI, decreased output; No dysuria Musculoskeletal: see HPI Skin: no symptoms reported Psychiatric/Neurological: No Symptoms Reported Reviewed Test Results Reviewed Test Results Lab Laboratory Tests Test 08/31/19 21:55 08/31/19 23:10 09/01/19 01:30 Range/Units Blood Gas Puncture Site LEFT RADIAL Blood Gas Patient Temperature 39.0 Arterial Blood pH 7.47 H 7.37-7.43 Arterial Blood Partial Pressure CO2 31 L 35-45 MMHG Arterial Blood Partial Pressure O2 83 79-93 MMHG Arterial Blood HCO3 21 L 23-27 MMOL/L Arterial Blood Total CO2 22.1 21.0-31.0 MMOL/L Arterial Blood Oxygen Saturation 96 94-100 % Arterial Blood Base Excess -1.6 -2.5-2.5 MMOL/L Can Test POSITIVE Blood Gas Ventilator Setting NO Blood Gas Inspired Oxygen RA Lactic Acid Level 2.77 *H 1.47 0.50-2.00 MMOL/L White Blood Count 12.6 H 4.3-11.0 10^3/uL Red Blood Count 2.87 L 4.35-5.85 10^6/uL Hemoglobin 8.3 L 11.5-16.0 G/DL Hematocrit 27 L 35-52 % Mean Corpuscular Volume 92 80-99 FL Mean Corpuscular Hemoglobin 29 25-34 PG Mean Corpuscular Hemoglobin Concent 31 L 32-36 G/DL Red Cell Distribution Width 15.9 H 10.0-14.5 % Platelet Count 302 130-400 10^3/uL Mean Platelet Volume 8.5 7.4-10.4 FL Neutrophils (%) (Auto) 96 H 42-75 % Lymphocytes (%) (Auto) 3 L 12-44 % Monocytes (%) (Auto) 1 0-12 % Eosinophils (%) (Auto) 0 0-10 % Basophils (%) (Auto) 0 0-10 % Neutrophils # (Auto) 12.1 H 1.8-7.8 X 10^3 Lymphocytes # (Auto) 0.4 L 1.0-4.0 X 10^3 Monocytes # (Auto) 0.1 0.0-1.0 X 10^3 Eosinophils # (Auto) 0.0 0.0-0.3 10^3/uL Basophils # (Auto) 0.0 0.0-0.1 10^3/uL Sodium Level 134 L 135-145 MMOL/L Potassium Level 3.1 L 3.6-5.0 MMOL/L Chloride Level 101 98-107 MMOL/L Carbon Dioxide Level 20 L 21-32 MMOL/L Anion Gap 13 5-14 MMOL/L Blood Urea Nitrogen 14 7-18 MG/DL Creatinine 0.96 0.60-1.30 MG/DL Estimat Glomerular Filtration Rate 59 BUN/Creatinine Ratio 15 Glucose Level 108 H 70-105 MG/DL Calcium Level 8.7 8.5-10.1 MG/DL Phosphorus Level 2.2 L 2.3-4.7 MG/DL Magnesium Level 1.8 1.6-2.4 MG/DL Thyroid Stimulating Hormone (TSH) 0.75 0.35-4.94 UIU/ML Physical Exam Physical Exam Vital Signs Vital Signs - First Documented 08/31/19 08/31/19 09/01/19 21:30 21:45 00:00 Temp 39.0 Pulse 148 Resp 17 B/P (MAP) 128/66 (86) Pulse Ox 96 O2 Delivery Room Air O2 Flow Rate 2.00 Capillary Refill : Height, Weight, BMI Height: 5'4.00" Weight: 183lbs. 5.0oz. 83.564166vb; 35.43 BMI Method:Stated General Appearance: No Apparent Distress, Chronically ill, Obese HEENT: PERRL/EOMI, Moist Mucous Membranes Neck: Normal Inspection, Supple; No Thyromegaly Respiratory: Lungs Clear, No Accessory Muscle Use, No Respiratory Distress Cardiovascular: Regular Rate, Rhythm, No Murmur Gastrointestinal: Normal Bowel Sounds, Non Tender, Soft Extremity: No No Calf Tenderness; No Pedal Edema; No Swelling Neurologic/Psychiatric: Alert, Oriented x3, Normal Mood/Affect Skin: Normal Color, Warm/Dry A/P-Cardiology Admission Diagnosis Sepsis Sinus tachycardia Coronary artery disease PVCs Assessment/Plan Status post hypotension, acute respiratory failure and fever occurred last ni ght. Currently better, receiving antibiotics. Managed by primary care team. Left bundle branch block, chronic. Had extensive workup done as an outpatient. Continue to monitor History of chest pain, currently no active chest pain. Continue to monitor History of cardiac catheterization done by Dr. Reaves in 2012 reporting mild coronary artery disease, nonobstructive disease, last stress test done in March 2019 showing no significant ischemia or infarction, ejection fraction 78 percent. Echo done in March 2019 showing normal LV size and function EF 5565 percent, mild TR, PA pressure 36 mmHg, planning to repeat 2-D echocardiogram. History of isolated PVCs and few brief runs of nonsustained ventricular tachycardia, she was seen by Dr. Marie and Dr. Lewis as an outpatient. Hyperlipidemia, maintained on Lipitor History of mild carotid stenosis. Continue to monitor Clinical Quality Measures DVT/VTE Risk/Contraindication: Risk Factor Score Per Nursin RFS Level Per Nursing on Admit: 4+=Very High DONALDO TA MD Sep 01, 2019 12:20
--- NOTE | 2019-09-01 12:27 | Physical Therapy Evaluation ---
PT Evaluation-General Medical Diagnosis Admission Date Aug 31, 2019 at 21:30 Medical Diagnosis: Sepsis Onset Date: Aug 31, 2019 Therapy Diagnosis Therapy Diagnosis: impaired mobility Height/Weight Height (Feet): 5 Height (Inches): 4.00 Weight (Pounds): 183 Weight (Ounces): 5.0 Precautions Precautions/Isolations: Fall Prevention, Standard Precautions Weight Bear Status Right Lower Extremity: Right Weight Bearing/Tolerated Left Lower Extremity: Left Weight Bearing/Tolerated Referral Physician: Dr. Vasquez Reason for Referral: Evaluation/Treatment Medical History Additional Medical History Osteogenesis imperfecta, (L) TKA Current History Pt was in the rehab unit and became hypotensive, tachycardic, and had a fever. She was transferred to ICU. Reviewed History: Yes Social History Home: Single Level Current Living Status: Friend Entry Into Home: Stairs With Railing PT Steps Into Home: 2 Prior Prior Level of Function SCALE: Activities may be completed with or without assistive devices. 4-Psfeovpwkv-exawlqj completes the activity by him/herself with no assistance from a helper. 5-Set-up or Clean-up Assistance-helper sets up or cleans up; patient completes activity. Morrow assists only prior to or following the activity. 4-Supervision or Touching Assistance-helper provides verbal cues and/or touching/steadying and/or contact guard assistance as patient completes activity. Assistance may be provided throughout the activity or intermittently. 3-Partial/Moderate Assistance-helper does LESS THAN HALF the effort. Morrow lifts, holds or supports trunk or limbs, but provides less than half the effort. 2-Substantial/Maximal Assistance-helper does MORE THAN HALF the effort. Morrow lifts or holds trunk or limbs and provides more than half the effort. 5-Vjopygagw-xdmuru does ALL the effort. Patient does none of the effort to complete the activity. Or, the assistance of 2 or more helpers is required for the patient to complete the activity. If activity was not attempted, code reason: 7-Patient Refused. 9-Not Applicable-not attempted and the patient did not perform the activity before the current illness, exacerbation or injury. 10-Not Attempted due to Environmental Limitations-(lack of equipment, weather restraints, etc.). 88-Not Attempted due to Medical Conditions or Safety Concerns. Bed Mobility: 4 Transfers (B,C,W/C): 4 Gait: 4 Indoor Mobility (Ambulation): Needed Some Help Stairs: Needed Some Help Prior Devices Use: Walker Prior to TKA she was (I). Since the TKA she has the (L) LE in a long leg brace and has strict orders for no (L) knee flexion due to quadriceps rupture and repair. PT Evaluation-Current Subjective Pt reports only mild (L) LE soreness. Pain Numeric Pain Scale: 1 Location: Left Location Body Site: Knee Pain Description: Ache, Dull Pt/Family Goals Return home Objective Patient Orientation: Person, Place, Time, Situation Attachments: IV ROM/Strength ROM Upper Extremities WFL ROM Lower Extremities (L) LE in long leg brace. (R) LE WFL. Strength Upper Extremities WFL Strength Lower Extremities (L) LE allowed to perform QS, abduct, assisted SLR. Neuromuscular (Tone, Coordination, Reflexes) intact Sensory Vision: Wears Glasses Hearing: Functional Sensation Right Upper Extremit: Intact Sensation Left Upper Extremity: Intact Sensation Right Lower Extremit: Intact Sensation Left Lower Extremity: Intact Transfers Roll Left to Right (QC): 4 Sit to Lying (QC): 4 Lying to Sitting/Side of Bed(Q: 4 Gait Does the Patient Walk?: No and Walking Goal IS indicated Mode of Locomotion: Walk Anticipated Mode of Locomotion: Walk Gait Assistive Device: FWW Wheelchair Training Does the Pt Use a Wheelchair?: No Balance Sitting Static: Normal Sitting Dynamic: Normal Assessment/Needs Pt is fatigued at this time but eager to get back to where she was prior to the fever. She would benefit from PT to help with returning her to ambulation and strengthening. Rehab Potential: Good PT Assisted Goals Restoration [place] Goals PT Restoration [place] Goals Time Frame: Sep 15, 2019 Roll Left & Right (QC): 6 Sit to Lying (QC): 6 Lying-Sitting on Side/Bed(QC): 6 Sit to Stand (QC): 6 Chair/Bay-cv-Nichb Xfer(QC): 6 Toilet Transfer (QC): 6 Car Transfer (QC): 6 Does the Patient Walk: No and Walking Goal IS indicated Walk 10 feet (QC): 6 Walk 50ft with 2 Turns (QC): 6 Walk 150 ft (QC): 6 Walking 10ft on Uneven Surface: 6 1 Step (curb) (QC): 6 PT Plan Problem List Problem List: Activity Tolerance, Functional Strength, Balance, Gait, Transfer, Bed Mobility, ROM Treatment/Plan Treatment Plan: Continue Plan of Care Treatment Duration: Sep 15, 2019 Frequency: 6 times per week Estimated Hrs Per Day: .25 hour per day Patient and/or Family Agrees t: Yes Time/GCodes Time In: 829 Time Out: 854 Total Billed Treatment Time: 25 Total Billed Treatment 1, matthewlowc 25 DALY CONTRERAS PT Sep 01, 2019 12:27
[2019-09-01] MEDS: ACETAMINOPHEN 325 MG TABLET PO PRN ×2 (14:54→22:17)
[2019-09-01] MEDS: VANCOMYCIN 1 GM/NS 250 ML IVPB IV SCH ×2 (16:30)
[2019-09-01] MEDS ORDERED: FAMO20TA3 PO (17:46)
[2019-09-01] MEDS ORDERED: ATOR10TA66 PO (17:46)
[2019-09-01] MEDS ORDERED: MTP25TSR PO (17:46)
[2019-09-01] MEDS ORDERED: FAMOTIDINE 20 MG (PEPCID) TABLET PO ONE (22:00)
--- NOTE | 2019-09-01 22:00 | NUR ---
PT CHILLING, TEMP 37.7, TYLENOL GIVEN PO
[2019-09-01] MEDS: CALCIUM CARBONATE 500 MG (TUMS) TAB.CHEW PO PRN (22:17)
[2019-09-02] VITALS (24 sets, daily range): BP systolic 75–147; BP diastolic 38–140
--- NOTE | 2019-09-02 | NUR ---
temp now 39, ibuprofen given po
[2019-09-02] MEDS: IBUPROFEN 600 MG (MOTRIN) TAB PO PRN (00:10)
--- NOTE | 2019-09-02 01:17 | NUR ---
temp now 37.8
--- NOTE | 2019-09-02 03:00 | NUR ---
TEMP 37.1
[2019-09-02] MEDS: VANCOMYCIN 1 GM/NS 250 ML IVPB IV SCH ×2 (04:00)
[2019-09-02] MEDS: PIPERACILLIN/TAZOBACTAM (BULK) 4.5 GM in NS (IVPB) 100 ML IV SCH ×2 (04:00→11:56)
[2019-09-02 04:20] LABS: BASOPHILS % (AUTO) 0 % (0-10); EOSINOPHILS # (AUTO) 0.1 10^3/uL (0.0-0.3); EOSINOPHILS % (AUTO) 1 % (0-10); HEMATOCRIT 23 % (35-52); HEMOGLOBIN 7.2 G/DL (11.5-16.0); LYMPHOCYTES % (AUTO) 8 % (12-44); MEAN CORPUSCULAR HEMOGLOBIN 30 PG (25-34); MEAN CORPUSCULAR HGB CONC 31 G/DL (32-36); MEAN CORPUSCULAR VOLUME 95 FL (80-99); MEAN PLATELET VOLUME 9.2 FL (7.4-10.4); MONOCYTES # (AUTO) 0.9 X 10^3 (0.0-1.0); MONOCYTES % (AUTO) 7 % (0-12); NEUTROPHILS # (AUTO) 10.3 X 10^3 (1.8-7.8); NEUTROPHILS % (AUTO) 83 % (42-75); PLATELET COUNT 276 10^3/uL (130-400); RED CELL DISTRIBUTION WIDTH 16.5 % (10.0-14.5); WHITE BLOOD COUNT 12.3 10^3/uL (4.3-11.0)
[2019-09-02] MEDS: MAGNESIUM 1 GM/100 ML IVPB 100 ML IV SCH (06:36)
[2019-09-02] MEDS: KCL 20 MEQ TAB (K-DUR) PO SCH (06:36)
[2019-09-02] MEDS: POTASSIUM CL 10MEQ/50ML IVPB 50 ML IV SCH (06:36)
[2019-09-02] MEDS: NS IV 1000 ML 1,000 ML IV SCH ×3 (06:37→21:06)
--- NOTE | 2019-09-02 06:59 | Diagnostic Imaging Report ---
INDICATION: Fever. Comparison made with prior examination of 09/01/2019. FINDINGS: The heart size, mediastinal configuration, and pulmonary vascularity are within normal limits. There is no pleural effusion, pneumothorax, or pneumonia. The osseous structures are unremarkable. IMPRESSION: No acute cardiopulmonary abnormality. Dictated by: Dictated on workstation # [id number]
[2019-09-02] MEDS ORDERED: KCL 20 MEQ TAB (K-DUR) PO ONE (08:00)
--- NOTE | 2019-09-02 08:07 | Progress Note ---
Standard Progress Note Progress Notes/Assess & Plan Date Seen by a Provider: Sep 02, 2019 Time Seen by a Provider: 08:04 Progress/Assessment & Plan feeling much better today. Denies knee pain Vital Signs Date Time Temp Pulse Resp B/P (MAP) Pulse Ox O2 Delivery O2 Flow Rate FiO2 09/01/19 06:00 84 20 109/68 (82) 99 Nasal Cannula 2.00 09/01/19 05:00 83 18 104/63 (77) 100 Nasal Cannula 2.00 09/01/19 04:00 86 18 75/55 (62) 98 Nasal Cannula 2.00 09/01/19 04:00 37.2 09/01/19 04:00 94 Nasal Cannula 2.00 09/01/19 03:00 93 20 84/44 (57) 100 Nasal Cannula 2.00 09/01/19 02:00 100 18 95/56 (69) 91 Nasal Cannula 2.00 09/01/19 01:00 106 09/01/19 01:00 106 16 98/59 (72) 94 Nasal Cannula 2.00 09/01/19 00:49 36.7 Nasal Cannula 2.00 09/01/19 00:00 94 Nasal Cannula 2.00 09/01/19 00:00 115 18 100/57 (71) 96 Room Air 08/31/19 23:00 117 23 129/60 (83) 92 Room Air 08/31/19 23:00 37.7 08/31/19 22:30 120 22 125/67 (86) 94 Room Air 08/31/19 22:15 120 23 123/63 (83) 92 Room Air 08/31/19 22:00 121 16 124/64 (84) 92 Room Air 08/31/19 21:45 147 17 128/66 (86) 96 Room Air 08/31/19 21:30 39.0 08/31/19 21:30 148 I & O 09/01/19 07:00 Intake Total 670 ml Output Total 850 ml Balance -180 ml Laboratory Tests Test 08/31/19 21:55 08/31/19 23:10 09/01/19 01:30 Range/Units Blood Gas Puncture Site LEFT RADIAL Blood Gas Patient Temperature 39.0 Arterial Blood pH 7.47 H 7.37-7.43 Arterial Blood Partial Pressure CO2 31 L 35-45 MMHG Arterial Blood Partial Pressure O2 83 79-93 MMHG Arterial Blood HCO3 21 L 23-27 MMOL/L Arterial Blood Total CO2 22.1 21.0-31.0 MMOL/L Arterial Blood Oxygen Saturation 96 94-100 % Arterial Blood Base Excess -1.6 -2.5-2.5 MMOL/L Can Test POSITIVE Blood Gas Ventilator Setting NO Blood Gas Inspired Oxygen RA Lactic Acid Level 2.77 *H 1.47 0.50-2.00 MMOL/L White Blood Count 12.6 H 4.3-11.0 10^3/uL Red Blood Count 2.87 L 4.35-5.85 10^6/uL Hemoglobin 8.3 L 11.5-16.0 G/DL Hematocrit 27 L 35-52 % Mean Corpuscular Volume 92 80-99 FL Mean Corpuscular Hemoglobin 29 25-34 PG Mean Corpuscular Hemoglobin Concent 31 L 32-36 G/DL Red Cell Distribution Width 15.9 H 10.0-14.5 % Platelet Count 302 130-400 10^3/uL Mean Platelet Volume 8.5 7.4-10.4 FL Neutrophils (%) (Auto) 96 H 42-75 % Lymphocytes (%) (Auto) 3 L 12-44 % Monocytes (%) (Auto) 1 0-12 % Eosinophils (%) (Auto) 0 0-10 % Basophils (%) (Auto) 0 0-10 % Neutrophils # (Auto) 12.1 H 1.8-7.8 X 10^3 Lymphocytes # (Auto) 0.4 L 1.0-4.0 X 10^3 Monocytes # (Auto) 0.1 0.0-1.0 X 10^3 Eosinophils # (Auto) 0.0 0.0-0.3 10^3/uL Basophils # (Auto) 0.0 0.0-0.1 10^3/uL Sodium Level 134 L 135-145 MMOL/L Potassium Level 3.1 L 3.6-5.0 MMOL/L Chloride Level 101 98-107 MMOL/L Carbon Dioxide Level 20 L 21-32 MMOL/L Anion Gap 13 5-14 MMOL/L Blood Urea Nitrogen 14 7-18 MG/DL Creatinine 0.96 0.60-1.30 MG/DL Estimat Glomerular Filtration Rate 59 BUN/Creatinine Ratio 15 Glucose Level 108 H 70-105 MG/DL Calcium Level 8.7 8.5-10.1 MG/DL Phosphorus Level 2.2 L 2.3-4.7 MG/DL Magnesium Level 1.8 1.6-2.4 MG/DL L knee incision clean and dry without erythema or warmth. echymosis present. no calf tenderness. Neg Shawn's s/p L TKA with subsequent quad rupture and repair i do not believe the knee is the source of the patient's decompensation. Ok to continue PT from my standpoint Final Diagnosis feels weak. denies knee pain. has not required pain med in 24 hrs had two episodes of temp spike denies SOB, abdominal pain. BM last night Vital Signs Date Time Temp Pulse Resp B/P (MAP) Pulse Ox O2 Delivery O2 Flow Rate FiO2 09/02/19 06:45 36.8 09/02/19 06:00 88 17 109/56 (73) 96 Nasal Cannula 2.00 09/02/19 05:00 90 17 96/56 (69) 96 Nasal Cannula 2.00 09/02/19 04:00 94 Room Air 09/02/19 04:00 95 20 104/53 (70) 95 Nasal Cannula 2.00 09/02/19 03:00 37.1 09/02/19 03:00 104 19 111/53 (72) 97 Nasal Cannula 2.00 09/02/19 02:00 110 22 107/53 (71) 93 Nasal Cannula 2.00 09/02/19 01:00 116 17 112/53 (72) 94 Nasal Cannula 2.00 09/02/19 01:00 37.8 09/02/19 01:00 116 09/02/19 00:10 39.0 09/02/19 00:00 120 25 117/59 (78) 98 Nasal Cannula 2.00 09/02/19 00:00 94 Room Air 09/01/19 23:00 113 21 113/73 (86) 98 Nasal Cannula 2.00 09/01/19 22:00 37.7 Nasal Cannula 2.00 09/01/19 22:00 117 28 134/65 (88) 98 Room Air 09/01/19 21:00 109 20 128/54 (78) 94 Room Air 09/01/19 20:00 109 25 108/63 (78) 95 Room Air 09/01/19 20:00 94 Room Air 09/01/19 19:25 36.6 09/01/19 19:00 109 18 112/59 (76) 91 Room Air 09/01/19 19:00 109 09/01/19 18:00 111 16 106/54 (71) 98 Room Air 09/01/19 17:00 113 31 107/46 (66) 97 Room Air 09/01/19 16:00 94 Room Air 09/01/19 16:00 120 23 116/56 (76) 99 Room Air 09/01/19 16:00 37.7 09/01/19 15:24 37.0 09/01/19 15:00 126 23 124/62 (82) 97 Room Air 09/01/19 14:54 37.9 09/01/19 14:00 101 21 98/56 (70) 97 Room Air 09/01/19 13:00 101 23 107/59 (75) 100 Room Air 09/01/19 12:40 104 09/01/19 12:00 106 27 114/59 (77) 100 Room Air 09/01/19 12:00 94 Room Air 09/01/19 11:29 37.0 09/01/19 11:00 96 28 104/60 (75) 99 Room Air 09/01/19 10:00 98 12 104/63 (77) 100 Room Air 09/01/19 09:00 92 18 95/47 (63) 100 Room Air I & O 09/02/19 07:00 Intake Total 3545.001 ml Balance 3545.001 ml Laboratory Tests Test 09/02/19 02:40 09/02/19 04:12 Range/Units Sodium Level 156 H 135-145 MMOL/L Potassium Level 3.4 L 3.6-5.0 MMOL/L Chloride Level 97 L 98-107 MMOL/L Carbon Dioxide Level 12 L 21-32 MMOL/L Anion Gap 47 H 5-14 MMOL/L Blood Urea Nitrogen 8 7-18 MG/DL Creatinine 0.59 L 0.60-1.30 MG/DL Estimat Glomerular Filtration Rate > 60 BUN/Creatinine Ratio 14 Glucose Level 117 H 70-105 MG/DL Calcium Level 7.1 L 8.5-10.1 MG/DL Phosphorus Level 2.2 L 2.3-4.7 MG/DL Magnesium Level 2.3 1.6-2.4 MG/DL White Blood Count 12.3 H 4.3-11.0 10^3/uL Red Blood Count 2.44 L 4.35-5.85 10^6/uL Hemoglobin 7.2 L 11.5-16.0 G/DL Hematocrit 23 L 35-52 % Mean Corpuscular Volume 95 80-99 FL Mean Corpuscular Hemoglobin 30 25-34 PG Mean Corpuscular Hemoglobin Concent 31 L 32-36 G/DL Red Cell Distribution Width 16.5 H 10.0-14.5 % Platelet Count 276 130-400 10^3/uL Mean Platelet Volume 9.2 7.4-10.4 FL Neutrophils (%) (Auto) 83 H 42-75 % Lymphocytes (%) (Auto) 8 L 12-44 % Monocytes (%) (Auto) 7 0-12 % Eosinophils (%) (Auto) 1 0-10 % Basophils (%) (Auto) 0 0-10 % Neutrophils # (Auto) 10.3 H 1.8-7.8 X 10^3 Lymphocytes # (Auto) 1.0 1.0-4.0 X 10^3 Monocytes # (Auto) 0.9 0.0-1.0 X 10^3 Eosinophils # (Auto) 0.1 0.0-0.3 10^3/uL Basophils # (Auto) 0.0 0.0-0.1 10^3/uL L knee incision benign. no erythema or warmth. no sig effusion. no calf tenderness. Neg Shawn's s/p L TKA with quad repair uncertain of fever source as knee appears completely benign. Focused Exam Lactate Level 08/31/19 23:10: Lactic Acid Level 2.77*H 09/01/19 01:30: Lactic Acid Level 1.47 REFUGIO MANZANARES MD Sep 02, 2019 08:07
--- NOTE | 2019-09-02 08:57 | Progress Note - Hospitalist ---
Subjective HPI/CC On Admission Date Seen by Provider: Sep 02, 2019 Time Seen by Provider: 08:50 Pt is a 64yoCF with a PMH of osteogenesis imperfecta who underwent TKA and quadriceps rupture repair last week. She was admitted to rehab following these surgeries but developed hypotension, fever, and tachycardia overnight and was transferred to the ICU. There was concern for sepsis and CXR and UA were done and were normal. Dr Gann and I examined her knee which does not appear to be infected and is healing well. CTA was done to rule out PE and was negative. It did not show any ground glasss opacities either. She does not have a cough and is on room air. This morning she states she is feeling better but still mentally foggy. No other complaints or concerns. Subjective/Events-last exam pt reports feeling better. No specific complaints. Fevered again yesterday. Clinically well appearing though. Focused Exam Lactate Level 08/31/19 23:10: Lactic Acid Level 2.77*H 09/01/19 01:30: Lactic Acid Level 1.47 Objective Exam Vital Signs Vital Signs Date Time Temp Pulse Resp B/P (MAP) Pulse Ox O2 Delivery O2 Flow Rate FiO2 09/02/19 08:00 99 Room Air 09/02/19 08:00 36.4 09/02/19 06:00 88 17 109/56 (73) 2.00 Capillary Refill : General Appearance: No Apparent Distress, Chronically ill, Obese Respiratory: Lungs Clear, No Respiratory Distress Cardiovascular: Regular Rate, Rhythm, No Murmur Extremity: No Pedal Edema, Other (left knee in immobilizer) Neurologic/Psychiatric: Alert, Oriented x3, Normal Mood/Affect Results/Procedures Lab Laboratory Tests 09/02/19 02:40 09/02/19 04:12 Patient resulted labs reviewed. Imaging: Reviewed Imaging Report Assessment/Plan Assessment and Plan Assess & Plan/Chief Complaint Fever unclear etiology CXR, CTA, and UA negative for source of infection RVP and rapid flu ordered Echo ordered to evaluate for endocarditis- pending Blood cultures NGTD No symptoms of COVID19 and PCR negative preop Bilateral dopplers ordered Continue Vanc and Zosyn for now Tachycardia sinus tach Cardiology involved Continue metoprolol and BP allows Improving s/p TKA and quadriceps repair Osteogenesis imperfecta Ortho consulted, appreciate recs PT/OT Diagnosis/Problems Diagnosis/Problems (1) Fever (2) Osteoarthritis of left knee Status: Acute (3) Tachycardia (4) Quadriceps tendon rupture Status: Acute (5) S/P total knee arthroplasty Status: Acute (6) Smoker Clinical Quality Measures DVT/VTE Risk/Contraindication: Risk Factor Score Per Nursin RFS Level Per Nursing on Admit: 4+=Very High CHRIS BRIGGS MD Sep 02, 2019 08:56
[2019-09-02 09:00] LABS: BUN/CREATININE RATIO 12; CALCIUM 8.3 MG/DL (8.5-10.1); CARBON DIOXIDE 15 MMOL/L (21-32); CHLORIDE 110 MMOL/L (98-107); CREATININE SERUM 0.66 MG/DL (0.60-1.30); GFR ESTIMATED > 60; GLUCOSE 116 MG/DL (70-105); PHOSPHORUS 2.8 MG/DL (2.3-4.7); POTASSIUM 3.7 MMOL/L (3.6-5.0); SODIUM 136 MMOL/L (135-145)
[2019-09-02] MEDS: FAMOTIDINE 20 MG (PEPCID) TABLET PO SCH ×2 (09:09→19:55)
[2019-09-02] MEDS: ENOXAPARIN 100 MG/1 ML (LOVENOX) SYR SC SCH ×2 (09:09→20:10)
--- NOTE | 2019-09-02 10:10 | Cardiology Progress Note ---
Subjective Date Seen by Provider: Sep 02, 2019 Time Seen by Provider: 10:09 Subjective/Events-last exam Patient was seen at bedside, sitting comfortably, had another spike of temperature earlier with tachycardia, currently feeling better Review of Systems General: No Chills, No Night Sweats, No Fatigue, No Malaise, No Appetite, No Other HEENT: No Head Aches, No Visual Changes, No Eye Pain, No Ear Pain, No Dysphasia, No Sinus Congestion, No Post Nasal Drip, No Sore Throat, No Other Pulmonary: No Dyspnea, No Cough, No Pleuritic Chest Pain, No Other Cardiovascular: No: Chest Pain, Palpitations, Orthopnea, Paroxysmal Noc. Dyspnea, Edema, Lt Headedness, Other Focused Exam Lactate Level 08/31/19 23:10: Lactic Acid Level 2.77*H 09/01/19 01:30: Lactic Acid Level 1.47 Objective-Cardiology Exam Last Set of Vital Signs Vital Signs 09/02/19 09/02/19 06:00 09:58 Temp 37.0 Pulse 88 Resp 17 B/P (MAP) 109/56 (73) Pulse Ox 99 O2 Flow Rate 2.00 FiO2 21 Capillary Refill : I&O Intake and Output 09/02/19 00:00 Intake Total 3645.001 ml Output Total 850 ml Balance 2795.001 ml Intake Oral 2195 ml IV Total 1450.001 ml Output Urine Total 850 ml # Voids 6 Daily Weight Change No General: Alert, Oriented X3, Cooperative HEENT: Atraumatic, PERRLA Neck: Supple, No JVD, No Thyromegaly Lungs: Clear to Auscultation, Normal Air Movement Heart: Regular Rate, Normal S1, Normal S2, No Murmurs Abdomen: Normal Bowel Sounds, Soft, No Tenderness, No Hepatosplenomegaly, No Masses Extremities: No Clubbing, No Cyanosis, No Edema, Normal Pulses, No Tenderness/Swelling Skin: No Rashes, No Breakdown, No Significant Lesion Neuro: Normal Gait, Normal Speech, Strength at 5/5 X4 Ext, Normal Tone, Sensation Intact Psych/Mental Status: Mental Status NL, Mood NL Results Lab Laboratory Tests 09/02/19 04:12 A/P-Cardiology Admission Diagnosis Sepsis Sinus tachycardia Coronary artery disease PVCs Assessment/Plan Status post hypotension, acute respiratory failure and fever occurred last night. Currently better, receiving antibiotics. Managed by primary care team. Fever, sinus tachycardia, improved initially, had another episode this morning, currently better heart rate and temperature are better. Feeling better. Receiving antibiotics. Continue to monitor Left bundle branch block, chronic. Had extensive workup done as an outpatient. Continue to monitor History of chest pain, currently no active chest pain. Continue to monitor History of cardiac catheterization done by Dr. Reaves in 2012 reporting mild coronary artery disease, nonobstructive disease, last stress test done in March 2019 showing no significant ischemia or infarction, ejection fraction 78 percent. Echo done in March 2019 showing normal LV size and function EF 5565 percent, mild TR, PA pressure 36 mmHg, planning to repeat 2-D echocardiogram. History of isolated PVCs and few brief runs of nonsustained ventricular tachycardia, she was seen by Dr. Marie and Dr. Lewis as an outpatient. Hyperlipidemia, maintained on Lipitor History of mild carotid stenosis. Continue to monitor Clinical Quality Measures DVT/VTE Risk/Contraindication: Risk Factor Score Per Nursin RFS Level Per Nursing on Admit: 4+=Very High DONALDO TA MD Sep 02, 2019 10:10
[2019-09-02] MEDS ORDERED: RT-ALBUTEROL/IPRATROPIUM 3 ML (DUONEB) VIAL INH PRN (10:15)
[2019-09-02] MEDS ORDERED: LORazepam INJ 2 MG/ML (ATIVAN) VIAL ONE (13:16)
[2019-09-02] MEDS ORDERED: ADENOSINE 6 MG/2 ML (ADENOCARD) VIAL IV ONE (13:20)
[2019-09-02 13:21] LABS: ABG BASE EXCESS -10.9 MMOL/L (-2.5-2.5); ABG OXYGEN SATURATION 99 % (94-100); ABG PCO2 28 MMHG (35-45); ABG PO2 149 MMHG (79-93)
[2019-09-02 13:22] LABS: ABG PH 7.32 (7.37-7.43)
[2019-09-02 13:23] LABS: ALLENS TEST YES-POS; INSPIRED O2 15 L; PATIENT TEMP 36.4; VENTILATOR NO
[2019-09-02] MEDS ORDERED: proPOfol 200 MG/20 ML (DIPRIVAN) VIAL IV ONE (13:25)
[2019-09-02] MEDS ORDERED: DexMEDEtomidine 250 ML DRIP 250 ML IV ONE ×2 (13:35→13:36)
[2019-09-02] MEDS ORDERED: PROPOFOL DRIP (ICU) 100 ML IV ONE ×2 (13:35→13:36)
[2019-09-02] MEDS ORDERED: meTOprolol 5 MG/5 ML (LOPRESSOR) VIAL ONE (13:35)
[2019-09-02] MEDS ORDERED: FUROSEMIDE 40 MG/4 ML INJ (LASIX) ONE (13:41)
[2019-09-02] MEDS ORDERED: MIDAZOLAM 2 MG/2 ML (VERSED) VIAL IM ONE (14:00)
--- NOTE | 2019-09-02 14:06 | Diagnostic Imaging Report ---
Clinical indications: Patient intubated. Exam: Portable chest x-ray upright view. Comparisons: Chest x-ray dated 09/02/2019. Findings: Interval placement of ET tube tip is seen roughly 3 cm from the level of carinal deposition. Interval placement of feeding tube seen with distal portion seen below level of diaphragm, but not completely imaged. Proximal port is seen overlying the expected region of the gastroesophageal junction. This feeding tube should be advanced at least another 10 cm to ensure good positioning. There is interval development of moderate patchy infiltrates in the right lung base and small amount involving the left lung base. There is also concern for small infiltrate involving the right upper lung field and possibly periphery of the left lung field. There is no pleural effusion or pneumothorax. Pulmonary vasculature and cardiac silhouette within normal limits. The remainder of this exam shows no significant interval change compared to the prior study of comparison. IMPRESSION: 1: There is interval development of bilateral lung infiltrates with the right lung base affected the most. 2: Interval placement of feeding tube with proximal port overlying the expected region of the gastroesophageal junction. This too should be advanced at least another 10 cm to ensure good positioning. 3: Interval placement of ET tube in good position. Dictated by: Dictated on workstation # [id number]
--- NOTE | 2019-09-02 14:18 | Anesthesia-Procedure Note ---
Procedures/Interventions Procedure Start/Stop/Diagnosis Date of Procedure: Sep 02, 2019 Start Time: 13:30 Referring Physician: Tarsha Preprocedural Diagnosis: Pulmonary Edema, tachycardia, fever of unk origin Brief History Called by data warehouse manager for emergent intubation in ICU bed 7. Pt was on oxygen per facemask and tachypneic/tachycardic. Brief hx obtained from RN, pt was about to be cardioverted and Tarsha requested pt to be intubated. Pre oxygenation per RT with 100% via ambu bag. Pt was given propofol 80mg and anectine 100 mg. Glidescope grade 1 view. #8 ETT passed easily x1 attempt. +etco2 with color change of EZcap. BS coarse B/L. Left pt in care of RN/RN. RT secured tube at 22cm. Report to RN ASA 3E. Stop Time: 13:40 Postprocedural Diagnosis: Pulmonary edema, tachycardia, fever of unk origin GRISELDA VALLEJO CRNA Sep 02, 2019 14:18
[2019-09-02] MEDS ORDERED: DOXYCYCLINE INJECTION 100 MG in NS (IVPB) 100 ML IV SCH (14:30)
[2019-09-02] MEDS: MIDAZOLAM INJECTION FOR DRIPS 50 MG in NS (IVPB) 90 ML IV SCH (14:36)
[2019-09-02] MEDS: PROPOFOL DRIP (ICU) 100 ML IV SCH ×2 (14:37→23:00)
[2019-09-02] MEDS: DexMEDEtomidine 250 ML DRIP 250 ML IV SCH ×2 (14:38→20:10)
[2019-09-02] MEDS ORDERED: MEROPENEM 1,000 MG in WATER (STERILE) FOR INJECTION 20 ML IV SCH (14:45)
[2019-09-02] MEDS ORDERED: TROUGH ORDER-PHARMACY XX NR (15:00)
[2019-09-02 15:08] LABS: BASOPHILS % (AUTO) 0 % (0-10); EOSINOPHILS # (AUTO) 0.1 10^3/uL (0.0-0.3); EOSINOPHILS % (AUTO) 1 % (0-10); HEMATOCRIT 25 % (35-52); HEMOGLOBIN 7.9 G/DL (11.5-16.0); LYMPHOCYTES # (AUTO) 0.4 X 10^3 (1.0-4.0); LYMPHOCYTES % (AUTO) 4 % (12-44); MEAN CORPUSCULAR HEMOGLOBIN 30 PG (25-34); MEAN CORPUSCULAR HGB CONC 31 G/DL (32-36); MEAN CORPUSCULAR VOLUME 95 FL (80-99); MONOCYTES # (AUTO) 0.3 X 10^3 (0.0-1.0); MONOCYTES % (AUTO) 3 % (0-12); NEUTROPHILS % (AUTO) 92 % (42-75); PLATELET COUNT 281 10^3/uL (130-400); RED CELL DISTRIBUTION WIDTH 16.2 % (10.0-14.5); WHITE BLOOD COUNT 10.9 10^3/uL (4.3-11.0)
[2019-09-02 15:10] LABS: ABG BASE EXCESS -6.3 MMOL/L (-2.5-2.5); ABG OXYGEN SATURATION 99 % (94-100); ABG PCO2 33 MMHG (35-45); ABG PH 7.36 (7.37-7.43); ABG PO2 125 MMHG (79-93); ABG TCO2 19.3 MMOL/L (21.0-31.0)
[2019-09-02 15:15] LABS: ALLENS TEST YES-POS; INSPIRED O2 65%; PATIENT TEMP 36.4; VENTILATOR YES
[2019-09-02 15:19] LABS: CHLORIDE 110 MMOL/L (98-107); POTASSIUM 4.2 MMOL/L (3.6-5.0); SODIUM 138 MMOL/L (135-145)
[2019-09-02 15:20] LABS: CALCIUM 8.5 MG/DL (8.5-10.1)
[2019-09-02 15:21] LABS: GLUCOSE 137 MG/DL (70-105)
[2019-09-02 15:22] LABS: CARBON DIOXIDE 16 MMOL/L (21-32)
[2019-09-02 15:24] LABS: PHOSPHORUS 2.9 MG/DL (2.3-4.7)
[2019-09-02 15:25] LABS: CREATININE SERUM 0.81 MG/DL (0.60-1.30); GFR ESTIMATED > 60
[2019-09-02 15:26] LABS: BUN/CREATININE RATIO 11
[2019-09-02 15:27] LABS: MAGNESIUM 1.7 MG/DL (1.6-2.4)
[2019-09-02 15:29] LABS: FIBRIN DEGRADATION PRODUCTS 8.31 UG/ML (0.00-0.49); PROTHROMBIN TIME PATIENT 13.6 SEC (12.2-14.7)
[2019-09-02] MEDS: MEROPENEM 500 MG/SWFI 10 ML IV PUSH IV SCH ×4 (15:47→20:10)
[2019-09-02] MEDS: LINEZOLID IVPB 300 ML IV SCH (15:48)
--- NOTE | 2019-09-02 15:52 | NUR ---
TIME LINE NOTE: 1305: NURSE ENTERED ROOM, PT REQUESTED ASSISTANCE, STATED WASNT FEELING WELL. WHEN ENTERED ROOM PATIENT SHIVERING, CYANOTIC AROUND LIPS, 02 TURNED ON VIA NASAL CANNULA AT 5L. HR 163 TEMP 36.4 1307: OXYMASK APPLIED AT 10l 1308:BS-101 EKG AFLUTTER 1310: DR. BRIGGS CALLED ET REQUESTED TO COME TO PATIENT ROOM STAT 1312: DR. TA CALLED 1315:DR. BRIGGS ET DR. MOSELEY AT BEDSIDE 1318:0.5MG ATIVAN IV-DR. BRIGGS CALLED DR. TA 1323: PATIENT MOVED FROM RECLINER TO BED 1328:6MG ADENOSIN GIVEN IV PUSH HR DOWN TO 158; 18G IV TO L AC 1331: 80MG PROPOFOL, 100 SUCC, PATIENT TUBED VIA ANESTHESIA ETT-8.0 24 @ TEETH COLOR CHANGE 1332:120J SHOCK ADMINISTERED PER DR. TA 1333:200J SHOCK ADMINISTERED PER DR. TA 1337-LOPRESSOR 5MG IV PUSH HR DOWN TO 137; OG PLACED 1339: 16 F BENNETT CATH, BALLOON INFLATED TO 10ML 1340: PROPOFOL GTT STARTED AT 40MCG/KG/HR PRECEDEX GTT 1.5 MCG/KG/HR- 20 PROPOFOL PUSH 1342:40 PROPOFOL PUSH, 20 LASIX IV PUSH 1343: OG PLACED TO LOW INTERMIT. WALL SUCTION 1346: PROPOFOL INCREASED TO 50 MCG/KG/HR 1347: PROPOFOL INCREASED TO 60 MCG/KG/HR 1359: 2 VERSED ADMINISTERED IV PUSH 1402: R AC 20G IV
[2019-09-02 15:54] LABS: BASOPHILS % (MANUAL) 1 %; LYMPHOCYTES % (MANUAL) 6 %; NEUTROPHILS % (MANUAL) 93 %; RBC MORPH NORMAL
--- NOTE | 2019-09-02 17:19 | Progress Note ---
Standard Progress Note Progress Notes/Assess & Plan Date Seen by a Provider: Sep 02, 2019 Time Seen by a Provider: 17:15 Progress/Assessment & Plan feeling much better today. Denies knee pain Vital Signs Date Time Temp Pulse Resp B/P (MAP) Pulse Ox O2 Delivery O2 Flow Rate FiO2 09/01/19 06:00 84 20 109/68 (82) 99 Nasal Cannula 2.00 09/01/19 05:00 83 18 104/63 (77) 100 Nasal Cannula 2.00 09/01/19 04:00 86 18 75/55 (62) 98 Nasal Cannula 2.00 09/01/19 04:00 37.2 09/01/19 04:00 94 Nasal Cannula 2.00 09/01/19 03:00 93 20 84/44 (57) 100 Nasal Cannula 2.00 09/01/19 02:00 100 18 95/56 (69) 91 Nasal Cannula 2.00 09/01/19 01:00 106 09/01/19 01:00 106 16 98/59 (72) 94 Nasal Cannula 2.00 09/01/19 00:49 36.7 Nasal Cannula 2.00 09/01/19 00:00 94 Nasal Cannula 2.00 09/01/19 00:00 115 18 100/57 (71) 96 Room Air 08/31/19 23:00 117 23 129/60 (83) 92 Room Air 08/31/19 23:00 37.7 08/31/19 22:30 120 22 125/67 (86) 94 Room Air 08/31/19 22:15 120 23 123/63 (83) 92 Room Air 08/31/19 22:00 121 16 124/64 (84) 92 Room Air 08/31/19 21:45 147 17 128/66 (86) 96 Room Air 08/31/19 21:30 39.0 08/31/19 21:30 148 I & O 09/01/19 07:00 Intake Total 670 ml Output Total 850 ml Balance -180 ml Laboratory Tests Test 08/31/19 21:55 08/31/19 23:10 09/01/19 01:30 Range/Units Blood Gas Puncture Site LEFT RADIAL Blood Gas Patient Temperature 39.0 Arterial Blood pH 7.47 H 7.37-7.43 Arterial Blood Partial Pressure CO2 31 L 35-45 MMHG Arterial Blood Partial Pressure O2 83 79-93 MMHG Arterial Blood HCO3 21 L 23-27 MMOL/L Arterial Blood Total CO2 22.1 21.0-31.0 MMOL/L Arterial Blood Oxygen Saturation 96 94-100 % Arterial Blood Base Excess -1.6 -2.5-2.5 MMOL/L Can Test POSITIVE Blood Gas Ventilator Setting NO Blood Gas Inspired Oxygen RA Lactic Acid Level 2.77 *H 1.47 0.50-2.00 MMOL/L White Blood Count 12.6 H 4.3-11.0 10^3/uL Red Blood Count 2.87 L 4.35-5.85 10^6/uL Hemoglobin 8.3 L 11.5-16.0 G/DL Hematocrit 27 L 35-52 % Mean Corpuscular Volume 92 80-99 FL Mean Corpuscular Hemoglobin 29 25-34 PG Mean Corpuscular Hemoglobin Concent 31 L 32-36 G/DL Red Cell Distribution Width 15.9 H 10.0-14.5 % Platelet Count 302 130-400 10^3/uL Mean Platelet Volume 8.5 7.4-10.4 FL Neutrophils (%) (Auto) 96 H 42-75 % Lymphocytes (%) (Auto) 3 L 12-44 % Monocytes (%) (Auto) 1 0-12 % Eosinophils (%) (Auto) 0 0-10 % Basophils (%) (Auto) 0 0-10 % Neutrophils # (Auto) 12.1 H 1.8-7.8 X 10^3 Lymphocytes # (Auto) 0.4 L 1.0-4.0 X 10^3 Monocytes # (Auto) 0.1 0.0-1.0 X 10^3 Eosinophils # (Auto) 0.0 0.0-0.3 10^3/uL Basophils # (Auto) 0.0 0.0-0.1 10^3/uL Sodium Level 134 L 135-145 MMOL/L Potassium Level 3.1 L 3.6-5.0 MMOL/L Chloride Level 101 98-107 MMOL/L Carbon Dioxide Level 20 L 21-32 MMOL/L Anion Gap 13 5-14 MMOL/L Blood Urea Nitrogen 14 7-18 MG/DL Creatinine 0.96 0.60-1.30 MG/DL Estimat Glomerular Filtration Rate 59 BUN/Creatinine Ratio 15 Glucose Level 108 H 70-105 MG/DL Calcium Level 8.7 8.5-10.1 MG/DL Phosphorus Level 2.2 L 2.3-4.7 MG/DL Magnesium Level 1.8 1.6-2.4 MG/DL L knee incision clean and dry without erythema or warmth. echymosis present. no calf tenderness. Neg Shawn's s/p L TKA with subsequent quad rupture and repair i do not believe the knee is the source of the patient's decompensation. Ok to continue PT from my standpoint Final Diagnosis above noted Left knee aspirated under sterile conditions and approximately 2 ml of bloody fluid obtained. No evidence of purulence. will send for STAT Gram stain, cultures. clinically, the knee, as of now, does not appear to be the source, but will follow very closely Focused Exam Lactate Level 08/31/19 23:10: Lactic Acid Level 2.77*H 09/01/19 01:30: Lactic Acid Level 1.47 09/02/19 14:45: Lactic Acid Level 3.35*H Lactic Acid Level Laboratory Tests Test 09/02/19 14:45 Lactic Acid Level 3.35 MMOL/L (0.50-2.00) *REFUGIO VICENTE MD Sep 02, 2019 17:19
--- NOTE | 2019-09-02 17:27 | Anesthesia-Procedure Note ---
Procedures/Interventions Procedure Start/Stop/Diagnosis Date of Procedure: Sep 02, 2019 Start Time: 16:55 Referring Physician: Tarsha Preprocedural Diagnosis: Resp Failure, tachycardia, fever Brief History Called by house director for A-Line placement on pt previously intubated by myself earlier this afternoon. Refer to previous record. Pt was sedated on vent. Strong Left radial pulse palpated. Wrist prepped with chlorhexidine. #20 Arrow catheter passed easily in to vessel. Strong waveform present on monitor. Cath secured with sterile op site and tape. Report to RN. ASA 4 Stop Time: 17:15 Postprocedural Diagnosis: Resp Failure, tachycardia, fever Arterial Line Arterial Line Catheter: 20G Type: Radial Procedure: prepped, draped in sterile fashion, good wave-form was obtained, patient tolerated procedure well, no immediate complications, post procedure area cleaned, post procedure dressing applied GRISELDA VALLEJO CRNA Sep 02, 2019 17:26
[2019-09-02] MEDS ORDERED: RT-ALBUTEROL/IPRATROPIUM 3 ML (DUONEB) VIAL INH SCH (18:00)
[2019-09-02] MEDS ORDERED: ALBUTEROL/IPRATROP (COMBIVENT RESPIMAT) 4 GM INHALER IH SCH (18:00)
[2019-09-02] MEDS: RT-ALBUTEROL INHALER HFA (VENTOLIN HFA) 8 GM IH SCH ×2 (18:27→21:45)
[2019-09-02] MEDS: NOREPINEPHRINE 4 MG/250 ML 250 ML IV SCH (19:45)
[2019-09-02 20:21] LABS: BILIRUBIN,URINE NEGATIVE (NEGATIVE); CLARITY,URINE CLEAR; COLOR,URINE YELLOW; GLUCOSE, URINE (UA) NEGATIVE (NEGATIVE); KETONES,URINE NEGATIVE (NEGATIVE); LEUKOCYTE ESTERASE ,URINE NEGATIVE (NEGATIVE); NITRITE,URINE NEGATIVE (NEGATIVE); PH,URINE 5.5 (5-9); PROTEIN,URINE NEGATIVE (NEGATIVE)
[2019-09-02 20:27] LABS: RBC,URINE RARE /HPF
[2019-09-02 20:28] LABS: BACTERIA,URINE NEGATIVE /HPF; SQUAMOUS EPITHELIAL CELL,UR RARE /HPF; WBC,URINE RARE /HPF
[2019-09-02] MEDS ORDERED: RX-ALBUTEROL INHALER (PROAIR) 8.5 GM IH ONE (21:07)
[2019-09-03] VITALS (29 sets, daily range): BP systolic 92–133; BP diastolic 41–54
[2019-09-03] MEDS: NOREPINEPHRINE 4 MG/250 ML 250 ML IV SCH ×4 (01:13→23:33)
[2019-09-03] MEDS: RT-ALBUTEROL INHALER HFA (VENTOLIN HFA) 8 GM IH SCH ×6 (02:27→22:04)
[2019-09-03] MEDS: LINEZOLID IVPB 300 ML IV SCH ×2 (02:39→14:47)
[2019-09-03] MEDS: MEROPENEM 500 MG/SWFI 10 ML IV PUSH IV SCH ×8 (02:39→20:43)
[2019-09-03 02:43] LABS: ABG OXYGEN SATURATION 100 % (94-100); ABG PCO2 39 MMHG (35-45); ABG PH 7.38 (7.37-7.43); ABG PO2 162 MMHG (79-93); ABG TCO2 23.8 MMOL/L (21.0-31.0)
[2019-09-03 02:44] LABS: BASOPHILS % (AUTO) 0 % (0-10); EOSINOPHILS # (AUTO) 0.1 10^3/uL (0.0-0.3); EOSINOPHILS % (AUTO) 1 % (0-10); HEMATOCRIT 23 % (35-52); HEMOGLOBIN 7.1 G/DL (11.5-16.0); LYMPHOCYTES # (AUTO) 2.1 X 10^3 (1.0-4.0); LYMPHOCYTES % (AUTO) 18 % (12-44); MEAN CORPUSCULAR HEMOGLOBIN 29 PG (25-34); MEAN CORPUSCULAR HGB CONC 31 G/DL (32-36); MEAN CORPUSCULAR VOLUME 96 FL (80-99); MEAN PLATELET VOLUME 8.8 FL (7.4-10.4); MONOCYTES # (AUTO) 1.1 X 10^3 (0.0-1.0); MONOCYTES % (AUTO) 10 % (0-12); NEUTROPHILS # (AUTO) 8.1 X 10^3 (1.8-7.8); NEUTROPHILS % (AUTO) 71 % (42-75); PLATELET COUNT 250 10^3/uL (130-400); RED CELL DISTRIBUTION WIDTH 16.4 % (10.0-14.5); WHITE BLOOD COUNT 11.4 10^3/uL (4.3-11.0)
[2019-09-03 02:49] LABS: ALLENS TEST POSITIVE; INSPIRED O2 65; VENTILATOR YES
[2019-09-03 02:50] LABS: PATIENT TEMP 36.4
[2019-09-03 02:59] LABS: CHLORIDE 112 MMOL/L (98-107); POTASSIUM 4.3 MMOL/L (3.6-5.0); SODIUM 141 MMOL/L (135-145)
[2019-09-03 03:00] LABS: CALCIUM 8.4 MG/DL (8.5-10.1)
[2019-09-03 03:01] LABS: GLUCOSE 138 MG/DL (70-105)
[2019-09-03 03:03] LABS: CARBON DIOXIDE 19 MMOL/L (21-32)
[2019-09-03 03:05] LABS: CREATININE SERUM 0.73 MG/DL (0.60-1.30); GFR ESTIMATED > 60
[2019-09-03 03:06] LABS: BUN/CREATININE RATIO 12
[2019-09-03] MEDS: DexMEDEtomidine 250 ML DRIP 250 ML IV SCH ×2 (03:19→17:37)
[2019-09-03] MEDS: NS IV 1000 ML 1,000 ML IV SCH (05:18)
[2019-09-03] MEDS: MAGNESIUM 1 GM/100 ML IVPB 100 ML IV SCH (05:19)
[2019-09-03] MEDS: POTASSIUM CL 10MEQ/50ML IVPB 50 ML IV SCH (05:19)
[2019-09-03] MEDS: KCL 20 MEQ TAB (K-DUR) PO SCH (05:20)
--- NOTE | 2019-09-03 06:08 | Pulmonary Progress Note ---
Subjective Time Seen by a Provider: 06:02 Sepsis Event Evaluation Height, Weight, BMI Height: 5'4.00" Weight: 183lbs. 5.0oz. 83.321945mo; 35.43 BMI Method:Stated Focused Exam Lactate Level 09/01/19 01:30: Lactic Acid Level 1.47 09/02/19 14:45: Lactic Acid Level 3.35*H 09/02/19 17:20: Lactic Acid Level 0.81 Exam Exam Vital Signs Date Time Temp Pulse Resp B/P (MAP) Pulse Ox O2 Delivery O2 Flow Rate FiO2 09/03/19 05:00 67 19 116/50 (72) 96 Mechanical Ventilator 55.00 09/03/19 04:00 96 Mechanical Ventilator 55 09/03/19 04:00 72 19 117/49 (71) 96 Mechanical Ventilator 55.00 09/03/19 04:00 36.4 09/03/19 03:19 75 120/50 09/03/19 03:00 75 21 123/51 (75) 96 Mechanical Ventilator 55.00 09/03/19 02:35 Mechanical Ventilator 55.00 09/03/19 02:27 59 18 97 65 09/03/19 02:00 60 18 106/46 (66) 97 Mechanical Ventilator 65.00 09/03/19 01:00 63 09/03/19 01:00 63 18 115/52 (73) 96 Mechanical Ventilator 65.00 09/03/19 00:00 96 Mechanical Ventilator 65 09/03/19 00:00 62 18 120/54 (76) 96 Mechanical Ventilator 65.00 09/02/19 23:00 65 19 118/54 (75) 96 Mechanical Ventilator 65.00 09/02/19 23:00 69 114/45 09/02/19 22:00 66 23 116/53 (74) 96 Mechanical Ventilator 65.00 09/02/19 21:55 37.4 09/02/19 21:07 70 22 95 65 09/02/19 21:00 64 27 123/56 (78) 96 Mechanical Ventilator 65.00 09/02/19 20:10 70 114/45 09/02/19 20:00 96 Mechanical Ventilator 65 09/02/19 20:00 72 21 114/46 (68) 96 Mechanical Ventilator 65.00 09/02/19 19:00 74 09/02/19 19:00 73 22 103/41 (61) 96 Mechanical Ventilator 65.00 09/02/19 18:27 76 23 96 65 09/02/19 18:00 77 25 97/38 (57) 97 Mechanical Ventilator 65.00 09/02/19 17:00 82 21 90/56 (67) 97 Mechanical Ventilator 65.00 09/02/19 16:00 87 26 83/52 (62) 97 Mechanical Ventilator 65.00 09/02/19 16:00 96 Mechanical Ventilator 65 09/02/19 15:00 85 29 75/51 (59) 98 Mechanical Ventilator 100.00 09/02/19 14:38 87 98/76 09/02/19 14:37 87 92/78 09/02/19 14:36 87 33 92/78 09/02/19 14:12 123 27 100 80 09/02/19 14:00 115 35 115/71 (86) 100 Mechanical Ventilator 100.00 09/02/19 13:00 111 28 147/140 (142) 93 Nasal Cannula 2.00 09/02/19 12:44 91 09/02/19 12:00 93 15 100 Nasal Cannula 2.00 09/02/19 12:00 37.0 09/02/19 12:00 99 Room Air 09/02/19 11:00 93 21 136/71 (92) 97 Nasal Cannula 2.00 09/02/19 10:00 90 27 131/64 (86) 97 Nasal Cannula 2.00 09/02/19 09:58 37.0 88 99 21 09/02/19 09:00 92 18 124/65 (84) 97 Nasal Cannula 2.00 09/02/19 08:00 99 Room Air 09/02/19 08:00 94 28 122/63 (82) 98 Nasal Cannula 2.00 09/02/19 08:00 36.4 09/02/19 07:00 97 23 124/62 (82) 99 Nasal Cannula 2.00 09/02/19 06:45 36.8 09/02/19 06:40 113 I & O 09/03/19 07:00 Intake Total 1240 ml Output Total 2450 ml Balance -1210 ml Height & Weight Height: 5'4.00" Weight: 183lbs. 5.0oz. 83.168613ky; 35.43 BMI Method:Stated General Appearance: No Apparent Distress, Chronically ill, Obese HEENT: PERRL/EOMI, Moist Mucous Membranes Neck: Normal Inspection, Supple Respiratory: Lungs Clear, No Respiratory Distress Cardiovascular: Regular Rate, Rhythm, No Murmur Extremity: No Pedal Edema, Other (left knee in immobilizer) Neurologic/Psychiatric: Alert, Oriented x3, Normal Mood/Affect Skin: Normal Color, Warm/Dry Results Lab Laboratory Tests 09/02/19 04:12 09/02/19 14:45 09/03/19 02:35 Assessment/Plan Assessment/Plan Acute respiratory failure - Pa02/Fi02 =249 -Continue vent - not ready for weaning yet -COVID pending -Echo pending -CTA is negative -RVP pending -Influ is neg -Check urine and strep Ag Sepsis -Renee cultures pending - Continue Merrem and Zyvox for now -Echo pending Anemia -Monitor -Pt is currently on therapeutic dose lovenox Aflutter s/p cardioversion/adenosin -Lovenox -Cardiology following s/p TKA and quadriceps repair Osteogenesis imperfecta Ortho consulted, appreciate recs PT/OT MAHENDRA BLAND DO Sep 03, 2019 06:08
--- NOTE | 2019-09-03 08:01 | Progress Note ---
Standard Progress Note Progress Notes/Assess & Plan Date Seen by a Provider: Sep 03, 2019 Time Seen by a Provider: 08:00 Progress/Assessment & Plan feeling much better today. Denies knee pain Vital Signs Date Time Temp Pulse Resp B/P (MAP) Pulse Ox O2 Delivery O2 Flow Rate FiO2 09/01/19 06:00 84 20 109/68 (82) 99 Nasal Cannula 2.00 09/01/19 05:00 83 18 104/63 (77) 100 Nasal Cannula 2.00 09/01/19 04:00 86 18 75/55 (62) 98 Nasal Cannula 2.00 09/01/19 04:00 37.2 09/01/19 04:00 94 Nasal Cannula 2.00 09/01/19 03:00 93 20 84/44 (57) 100 Nasal Cannula 2.00 09/01/19 02:00 100 18 95/56 (69) 91 Nasal Cannula 2.00 09/01/19 01:00 106 09/01/19 01:00 106 16 98/59 (72) 94 Nasal Cannula 2.00 09/01/19 00:49 36.7 Nasal Cannula 2.00 09/01/19 00:00 94 Nasal Cannula 2.00 09/01/19 00:00 115 18 100/57 (71) 96 Room Air 08/31/19 23:00 117 23 129/60 (83) 92 Room Air 08/31/19 23:00 37.7 08/31/19 22:30 120 22 125/67 (86) 94 Room Air 08/31/19 22:15 120 23 123/63 (83) 92 Room Air 08/31/19 22:00 121 16 124/64 (84) 92 Room Air 08/31/19 21:45 147 17 128/66 (86) 96 Room Air 08/31/19 21:30 39.0 08/31/19 21:30 148 I & O 09/01/19 07:00 Intake Total 670 ml Output Total 850 ml Balance -180 ml Laboratory Tests Test 08/31/19 21:55 08/31/19 23:10 09/01/19 01:30 Range/Units Blood Gas Puncture Site LEFT RADIAL Blood Gas Patient Temperature 39.0 Arterial Blood pH 7.47 H 7.37-7.43 Arterial Blood Partial Pressure CO2 31 L 35-45 MMHG Arterial Blood Partial Pressure O2 83 79-93 MMHG Arterial Blood HCO3 21 L 23-27 MMOL/L Arterial Blood Total CO2 22.1 21.0-31.0 MMOL/L Arterial Blood Oxygen Saturation 96 94-100 % Arterial Blood Base Excess -1.6 -2.5-2.5 MMOL/L Can Test POSITIVE Blood Gas Ventilator Setting NO Blood Gas Inspired Oxygen RA Lactic Acid Level 2.77 *H 1.47 0.50-2.00 MMOL/L White Blood Count 12.6 H 4.3-11.0 10^3/uL Red Blood Count 2.87 L 4.35-5.85 10^6/uL Hemoglobin 8.3 L 11.5-16.0 G/DL Hematocrit 27 L 35-52 % Mean Corpuscular Volume 92 80-99 FL Mean Corpuscular Hemoglobin 29 25-34 PG Mean Corpuscular Hemoglobin Concent 31 L 32-36 G/DL Red Cell Distribution Width 15.9 H 10.0-14.5 % Platelet Count 302 130-400 10^3/uL Mean Platelet Volume 8.5 7.4-10.4 FL Neutrophils (%) (Auto) 96 H 42-75 % Lymphocytes (%) (Auto) 3 L 12-44 % Monocytes (%) (Auto) 1 0-12 % Eosinophils (%) (Auto) 0 0-10 % Basophils (%) (Auto) 0 0-10 % Neutrophils # (Auto) 12.1 H 1.8-7.8 X 10^3 Lymphocytes # (Auto) 0.4 L 1.0-4.0 X 10^3 Monocytes # (Auto) 0.1 0.0-1.0 X 10^3 Eosinophils # (Auto) 0.0 0.0-0.3 10^3/uL Basophils # (Auto) 0.0 0.0-0.1 10^3/uL Sodium Level 134 L 135-145 MMOL/L Potassium Level 3.1 L 3.6-5.0 MMOL/L Chloride Level 101 98-107 MMOL/L Carbon Dioxide Level 20 L 21-32 MMOL/L Anion Gap 13 5-14 MMOL/L Blood Urea Nitrogen 14 7-18 MG/DL Creatinine 0.96 0.60-1.30 MG/DL Estimat Glomerular Filtration Rate 59 BUN/Creatinine Ratio 15 Glucose Level 108 H 70-105 MG/DL Calcium Level 8.7 8.5-10.1 MG/DL Phosphorus Level 2.2 L 2.3-4.7 MG/DL Magnesium Level 1.8 1.6-2.4 MG/DL L knee incision clean and dry without erythema or warmth. echymosis present. no calf tenderness. Neg Shawn's s/p L TKA with subsequent quad rupture and repair i do not believe the knee is the source of the patient's decompensation. Ok to continue PT from my standpoint Final Diagnosis intubated cultures, Gram stain pending L knee remains without erythema or warmth. Incision clean and dry s/p L TKA and quad repair will follow cultures closely Focused Exam Lactate Level 09/01/19 01:30: Lactic Acid Level 1.47 09/02/19 14:45: Lactic Acid Level 3.35*H 09/02/19 17:20: Lactic Acid Level 0.81 REFUGIO MANZANARES MD Sep 03, 2019 08:01
[2019-09-03] MEDS: PANTOPRAZOLE 40 MG (PROTONIX) VIAL IV SCH (08:06)
[2019-09-03] MEDS: ENOXAPARIN 100 MG/1 ML (LOVENOX) SYR SC SCH (08:07)
--- NOTE | 2019-09-03 08:07 | Physical Therapy Progress Note ---
Therapy Progress Note Patient currently intubated and sedated. PT will continue to monitor patient status. WILVER GRIMM PT Sep 03, 2019 08:07
[2019-09-03] MEDS: FAMOTIDINE 20 MG (PEPCID) TABLET PO SCH ×2 (08:16→20:43)
--- NOTE | 2019-09-03 09:47 | Diagnostic Imaging Report ---
INDICATION: Immobility, recent knee replacement. Bilateral lower extremity venous Doppler study was performed in the routine fashion with color flow Doppler and waveform analysis. FINDINGS: The common femoral veins, superficial femoral veins, popliteal veins and visualized portion of the tibial veins show normal compressibility and venous flow patterns. There is normal augmentation. IMPRESSION: No evidence of deep vein thrombosis in the major veins of both legs. Dictated by: Dictated on workstation # [id number]
--- NOTE | 2019-09-03 10:08 | Occ Therapy Progress Note ---
Therapy Progress Note Pt currently on mechanical ventilation/ sedated. OT to hold tx on this date and initiate treatment when medically stable and able to participate in skilled therapy. HYACINTH WADSWORTH OTR Sep 03, 2019 10:08
[2019-09-03] MEDS: PROPOFOL DRIP (ICU) 100 ML IV SCH ×3 (12:00→23:34)
--- NOTE | 2019-09-03 13:45 | Consultation - Surgery ---
History of Present Illness History of Present Illness Patient Consulted On(shiv/time) 09/03/19 13:40 Time Seen by Provider: 13:01 Reason for Visit: Tachycardia History of Present Illness Surgery asked to consult regarding hypotension and need for central line for pressor support. HPI per IM: Pt is a 64yoCF with a PMH of osteogenesis imperfecta who underwent TKA and quadriceps rupture repair last week. She was admitted to rehab following these surgeries but developed hypotension, fever, and tachycardia overnight and was transferred to the ICU. There was concern for sepsis and CXR and UA were done and were normal. Dr Manzanares and I examined her knee which does not appear to be infected and is healing well. CTA was done to rule out PE and was negative. It did not show any ground glasss opacities either. She does not have a cough and is on room air. This morning she states she is feeling better but still men tally foggy. No other complaints or concerns. Pt last night went into acute respiratory distress and was intubated; she is requiring levophed to keep her blood pressure up. She is intubated and sedated. Allergies and Home Medications Allergies Coded Allergies: cephalexin (Unverified Adverse Reaction, Intermediate, VOMITING, 08/22/19) pravastatin (Unverified Adverse Reaction, Mild, NAUSEA, 08/22/19) Home Medications Acetaminophen 325 Mg Capsule, 650 MG PO TID, (Reported) Aspirin 81 Mg Tab.chew, 81 MG PO DAILY, (Reported) Atorvastatin Calcium 10 Mg Tablet, 10 MG PO HS, (Reported) Famotidine 20 Mg Tablet, 40 MG PO DAILY, (Reported) Metoprolol Succinate 25 Mg Tab.er.24h, 25 MG PO BID, (Reported) Oxycodone HCl/Acetaminophen 1 Each Tablet, 1 TAB PO Q4H Prescribed by: REFUGIO MANZANARES on 08/22/19 0730 Patient Home Medication List Home Medication List Reviewed: Yes Past Gxfkmqt-Oofcpa-Mnmekc Hx Patient Social History Alcohol Use: Denies Use Recreational Drug Use: No Smoking Status: Current Everyday Smoker Type Used: Cigarettes Recent Foreign Travel: No Contact w/Someone Who Travel: No Recent Infectious Disease Expo: No Recent Hopitalizations: No Physical Abuse Screen: No Sexual Abuse: No Immunizations Up To Date Date of Influenza Vaccine: Jan 10, 2017 Seasonal Allergies Seasonal Allergies: Yes Surgeries History of Surgeries: Yes (EAR X5, RIGHT KNEE X2, LAP RSO, VENTRAL HERNIA REPAIR, L PINKY TENDON REPAI) Surgeries: Orthopedic Respiratory History of Respiratory Disorde: No Cardiovascular History of Cardiac Disorders: Yes (PVC) Cardiac Disorders: High Cholesterol, Hypertension, Irregular Heartbeat Neurological History of Neurological Disord: No Reproductive System Hx Reproductive Disorders: No Sexually Transmitted Disease: No HIV/AIDS: No Female Reproductive Disorders: Ovarian Cyst Genitourinary History of Genitourinary Disor: No Gastrointestinal History of Gastrointestinal Di: Yes (GERD) Gastrointestinal Disorders: Gastroesophageal Reflux Musculoskeletal History of Musculoskeletal Dis: Yes ( OSTEOGENESIS IMPERFECTA) Musculoskeletal Disorders: Arthritis, Chronic Back Pain Endocrine History of Endocrine Disorders: No HEENT History of HEENT Disorders: Yes (GLASSES) Loss of Vision: Bilateral Cancer History of Cancer: No Psychosocial History of Psychiatric Problem: No Integumentary History of Skin or Integumenta: No Blood Transfusions History of Blood Disorders: No Adverse Reaction to a Blood Tr: No (N/A) Family Medical History Significant Family History: Cancer, CAD Under 55 Years Old, Lung Disease Family Medial History: Alcoholism G8 BROTHER, Onset:25s - 30 Arthritis 19 MOTHER, , Age:60 years and older G8 SISTER Cardiovascular disease 19 FATHER, , Age:60 years and older 19 MOTHER, , Age:60 years and older G8 BROTHER G8 BROTHER G8 BROTHER G8 SISTER G8 SISTER Cataracts 19 MOTHER, , Age:60 years and older G8 BROTHER Colon cancer G8 BROTHER G8 BROTHER Glaucoma 19 MOTHER, , Age:60 years and older Respiratory disorder G8 BROTHER Review of Systems-General ROS-Unable to Obtain: Pt intubated and sedated Physical Exam-General Problems Physical Exam Vital Signs Vital Signs - First Documented 20 620 20 6 21:30 21:45 00:00 09:58 Temp 39.0 Pulse 148 Resp 17 B/P (MAP) 128/66 (86) Pulse Ox 96 O2 Delivery Room Air O2 Flow Rate 2.00 FiO2 21 Capillary Refill : General Appearance: no apparent distress, other (sedated on vent) Eyes: Bilateral Eye PERRL, Bilateral Eye EOMI HEENT: pharynx normal; No scleral icterus (R), No scleral icterus (L); other (ET tube in place) Respiratory: no respiratory distress, no accessory muscle use, decreased breath sounds (at bases) Cardiovascular: no murmur, tachycardia Gastrointestinal: normal bowel sounds, soft, no organomegaly Neurologic/Psychiatric: other (sedated on vent) Skin: normal color, warm/dry Lymphatic: no adenopathy (neck, axilla or groin) Data Review Labs Laboratory Tests 09/02/19 14:44: Blood Gas Puncture Site LT RAD, Blood Gas Patient Temperature 36.4, Arterial Blood pH 7.36L, Arterial Blood Partial Pressure CO2 33L, Arterial Blood Partial Pressure O2 125H, Arterial Blood HCO3 18L, Arterial Blood Total CO2 19.3L, Arterial Blood Oxygen Saturation 99, Arterial Blood Base Excess -6.3L, Can Test YES-POS, Blood Gas Ventilator Setting YES, Blood Gas Inspired Oxygen 65% 09/02/19 14:45: White Blood Count 10.9, Red Blood Count 2.68L, Hemoglobin 7.9L, Hematocrit 25L, Mean Corpuscular Volume 95, Mean Corpuscular Hemoglobin 30, Mean Corpuscular Hemoglobin Concent 31L, Red Cell Distribution Width 16.2H, Platelet Count 281, Mean Platelet Volume 9.0, Neutrophils (%) (Auto) 92H, Lymphocytes (%) (Auto) 4L, Monocytes (%) (Auto) 3, Eosinophils (%) (Auto) 1, Basophils (%) (Auto) 0, Neutrophils # (Auto) 10.0H, Lymphocytes # (Auto) 0.4L, Monocytes # (Auto) 0.3, Eosinophils # (Auto) 0.1, Basophils # (Auto) 0.0, Neutrophils % (Manual) 93, Lymphocytes % (Manual) 6, Basophils % (Manual) 1, Blood Morphology Comment NORMAL, Prothrombin Time 13.6, INR Comment 1.0, Activated Partial Thromboplast Time 33, D-Dimer 8.31H, Sodium Level 138, Potassium Level 4.2, Chloride Level 110H, Carbon Dioxide Level 16L, Anion Gap 12, Blood Urea Nitrogen 9, Creatinine 0.81, Estimat Glomerular Filtration Rate > 60, BUN/Creatinine Ratio 11, Glucose Level 137H, Lactic Acid Level 3.35*H, Calcium Level 8.5, Phosphorus Level 2.9, Magnesium Level 1.7, Troponin I 0.194H, B-Type Natriuretic Peptide 159.7H, Vancomycin Level Trough 10.0 09/02/19 15:30: 09/02/19 17:20: Lactic Acid Level 0.81 09/02/19 20:00: Urine Color YELLOW, Urine Clarity CLEAR, Urine pH 5.5, Urine Specific [place] <=1.005, Urine Protein NEGATIVE, Urine Glucose (UA) NEGATIVE, Urine Ketones NEGATIVE, Urine Nitrite NEGATIVE, Urine Bilirubin NEGATIVE, Urine Urobilinogen 0.2, Urine Leukocyte Esterase NEGATIVE, Urine RBC (Auto) NEGATIVE, Urine RBC RARE, Urine WBC RARE, Urine Squamous Epithelial Cells RARE, Urine Crystals NONE, Urine Bacteria NEGATIVE, Urine Casts NONE, Urine Mucus NEGATIVE, Urine Culture Indicated NO 09/03/19 02:35: White Blood Count 11.4H, Red Blood Count 2.42L, Hemoglobin 7.1L, Hematocrit 23L, Mean Corpuscular Volume 96, Mean Corpuscular Hemoglobin 29, Mean Corpuscular Hemoglobin Concent 31L, Red Cell Distribution Width 16.4H, Platelet Count 250, Mean Platelet Volume 8.8, Neutrophils (%) (Auto) 71, Lymphocytes (%) (Auto) 18, Monocytes (%) (Auto) 10, Eosinophils (%) (Auto) 1, Basophils (%) (Auto) 0, Neutrophils # (Auto) 8.1H, Lymphocytes # (Auto) 2.1, Monocytes # (Auto) 1.1H, Eosinophils # (Auto) 0.1, Basophils # (Auto) 0.0, Blood Gas Puncture Site LEFT ARTLINE, Blood Gas Patient Temperature 36.4, Arterial Blood pH 7.38, Arterial Blood Partial Pressure CO2 39, Arterial Blood Partial Pressure O2 162H, Arterial Blood HCO3 23, Arterial Blood Total CO2 23.8, Arterial Blood Oxygen Saturation 100, Arterial Blood Base Excess -2.0, Cna Test POSITIVE, Blood Gas Ventilator Setting YES, Blood Gas Inspired Oxygen 65, Sodium Level 141, Potassium Level 4.3, Chloride Level 112H, Carbon Dioxide Level 19L, Anion Gap 10, Blood Urea Nitrogen 9, Creatinine 0.73, Estimat Glomerular Filtration Rate > 60, BUN/Creatinine Ratio 12, Glucose Level 138H, Calcium Level 8.4L, Phosphorus Level 3.0, Magnesium Level 2.0, B-Type Natriuretic Peptide 145.2H Microbiology 09/02/19 Influenza Types A,B Antigen (CHRISTEN) - Final, Complete 08/31/19 Blood Culture - Preliminary, Resulted No growth Assessment/Plan Assessment/Plan Assessment/Plan Acute Respiratory Failure Hypotension Pt needs central line for pressor support; will place that now. Consent obtained from family. Clinical Quality Measures DVT/VTE Risk/Contraindication: Risk Factor Score Per Nursin RFS Level Per Nursing on Admit: 4+=Very High NURYS MORE DO Sep 03, 2019 13:45
--- NOTE | 2019-09-03 13:51 | Progress Note-Post Operative ---
Post-Operative Progess Note Surgeon (s)/Firewall Administrator (s) Surgeon NURYS MORE DO Firewall Administrator: none Pre-Operative Diagnosis Hypotension, Resp Failure Post-Operative Diagnosis same Procedure & Operative Findings Date of Procedure 09/03/19 Procedure Performed/Findings PROCEDURE: [Right] internal jugular central line placement using ultrasound guidance. COMPLICATIONS: None. INDICATIONS: The patient is a 64 year old female [with hypotension and acute respiratory failure]. Family understands the risks and benefits of port placement and wished to proceed with the procedure. Consent was signed on the chart. PROCEDURE: The patient was in her bed in the ICU (sedated on vent), was prepped and draped in the sterile fashion. A surgical pause was performed. Ultrasound was used to locate the internal jugular vein. Once located the right internal vein was accessed with 18 gauge finder needle with negative inspiration (watched it enter vein on US). Dark nonpulsatile blood was withdrawn. The wire was inserted. Ultrasound assured proper placement. The needle was removed. A stab incision was made at the guidewire and the dilator sheath was then advanced over the wire. The triple lumen catheter was inserted over the guidewire and the wire was then removed. The catheter was easily placed and then accessed all three ports; good flash of blood was seen and then flushed with sterile saline. The catheter was then sutured in place with 3-0 Silk on a Anton needle and biodisk placed as well as tegaderm dressing.The patient tolerated the procedure well without complication. Anesthesia Type Pt already sedated on vent Estimated Blood Loss Estimated blood loss (mL): scant Specimens/Packing Specimens Removed none NURYS MORE DO Sep 03, 2019 13:51
--- NOTE | 2019-09-03 14:35 | NUR ---
"Received dietary consult regarding vent status. Est. kcal needs: 8415-9878 kcal | 15-18 kcal/kg Est. Pro needs: 70-100 g Pro | 0.7-1.0 g Pro/kg If pt is to remain NPO for more than 3days, would recommend the following TF: Jevity 1.5 at goal rate of 50ml/hr. Begin at 10ml/hr and increase by 10ml q6h as medically able and as tolerated. Monitor gastric residuals as tolerated. At goal rate, provides 1800 kcal (18 kcal/kg); 77 g Pro (0.8 g Pro/kg); and 912ml free water. Flush with 75ml H2O q4h for hydration status. With flushes, provides 1362ml free water. Will continue to follow and reassess as pt needs, intake, and status change. Asif Cosme, MS, RD, LD"
[2019-09-03] MEDS: MIDAZOLAM INJECTION FOR DRIPS 50 MG in NS (IVPB) 90 ML IV SCH (14:49)
--- NOTE | 2019-09-03 15:38 | Progress Note - Hospitalist ---
Subjective HPI/CC On Admission Date Seen by Provider: Sep 03, 2019 Time Seen by Provider: 10:55 Pt is a 64yoCF with a PMH of osteogenesis imperfecta who underwent TKA and quadriceps rupture repair last week. She was admitted to rehab following these surgeries but developed hypotension, fever, and tachycardia overnight and was transferred to the ICU. There was concern for sepsis and CXR and UA were done and were normal. Dr Gann and I examined her knee which does not appear to be infected and is healing well. CTA was done to rule out PE and was negative. It did not show any ground glasss opacities either. She does not have a cough and is on room air. This morning she states she is feeling better but still mentally foggy. No other complaints or concerns. Subjective/Events-last exam She is intubated and sedated. Focused Exam Lactate Level 09/01/19 01:30: Lactic Acid Level 1.47 09/02/19 14:45: Lactic Acid Level 3.35*H 09/02/19 17:20: Lactic Acid Level 0.81 Objective Exam Vital Signs Vital Signs Date Time Temp Pulse Resp B/P (MAP) Pulse Ox O2 Delivery O2 Flow Rate FiO2 09/03/19 15:00 65 16 131/53 (79) 97 Mechanical Ventilator 55.00 09/03/19 14:28 50 09/03/19 12:00 36.9 Capillary Refill : General Appearance: No Apparent Distress, Obese, Other (Intubated and sedated) HEENT: Other (Endotracheal tube in place) Neck: Normal Inspection, Supple Respiratory: Lungs Clear, Normal Breath Sounds, No Respiratory Distress, Other (Intubated and mechanically ventilated) Cardiovascular: Regular Rate, Rhythm, No Murmur Gastrointestinal: Normal Bowel Sounds, Soft; No Distended Extremity: Normal Inspection, Non Tender, Pedal Edema Neurologic/Psychiatric: Other (Sedated) Skin: Normal Color, Warm/Dry Results/Procedures Lab Laboratory Tests 09/03/19 02:35 Patient resulted labs reviewed. Imaging: Reviewed Imaging Report Assessment/Plan Assessment and Plan Assess & Plan/Chief Complaint Severe sepsis Multifocal pneumonia Acute respiratory failure with hypoxia Pulmonology consulted, appreciate assistance Chest x-ray with bilateral infiltrates Flu negative Respiratory viral panel pending COVID pending Blood cultures with no growth today Bilateral dopplers negative Continue Zyvox and Merrem s/p TKA and quadriceps repair Osteogenesis imperfecta Ortho consulted, appreciate recs PT/OT DVT prophylaxis: Lovenox Lactic acidosis, resolved Diagnosis/Problems Diagnosis/Problems (1) Severe sepsis Status: Acute (2) Lactic acidosis Status: Acute (3) Multifocal pneumonia Status: Acute (4) Quadriceps tendon rupture Status: Acute Qualifiers: Encounter type: subsequent encounter (5) Osteoarthritis of left knee Status: Chronic Qualifiers: Osteoarthritis type: primary Qualified Codes: M17.12 - Unilateral primary osteoarthritis, left knee (6) Acute respiratory failure with hypoxia (7) Endotracheally intubated Clinical Quality Measures DVT/VTE Risk/Contraindication: Risk Factor Score Per Nursin RFS Level Per Nursing on Admit: 4+=Very High JOANIE WAITE MD Sep 03, 2019 15:38
--- NOTE | 2019-09-03 16:20 | Progress Note - Cardiology ---
Cardiology SOAP Progress Note Subjective: On [facility] vent Unable to communicate Objective: I&O/Vital Signs 09/03/19 09/03/19 09/03/19 09/03/19 05:00 06:00 06:38 07:00 Pulse 67 64 66 67 Resp 19 18 20 B/P (MAP) 116/50 (72) 108/47 (67) Pulse Ox 96 96 96 O2 Delivery Mechanical Ventilator Mechanical Ventilator O2 Flow Rate 55.00 55.00 FiO2 55 09/03/19 09/03/19 09/03/19 09/03/19 07:00 08:00 08:00 08:00 Temp 36.7 Pulse 67 65 Resp 15 17 B/P (MAP) 101/44 (63) 94/41 (58) Pulse Ox 96 97 95 O2 Delivery Mechanical Ventilator Mechanical Ventilator Mechanical Ventilator O2 Flow Rate 55.00 55.00 FiO2 55 09/03/19 09/03/19 09/03/19 09/03/19 09:00 09:40 10:00 10:41 Pulse 64 64 68 Resp 19 16 20 B/P (MAP) 92/41 (58) 87/38 119/51 (73) Pulse Ox 97 95 95 O2 Delivery Mechanical Ventilator Mechanical Ventilator O2 Flow Rate 55.00 55.00 FiO2 50 09/03/19 09/03/19 09/03/19 09/03/19 11:00 12:00 12:00 12:00 Pulse 67 69 Resp 22 17 B/P (MAP) 106/43 (64) 116/51 109/47 (67) Pulse Ox 96 93 96 O2 Delivery Mechanical Ventilator Mechanical Ventilator Mechanical Ventilator O2 Flow Rate 55.00 55.00 FiO2 55 09/03/19 09/03/19 09/03/19 09/03/19 12:00 12:46 13:00 14:00 Temp 36.9 Pulse 66 64 65 Resp 16 19 B/P (MAP) 123/54 (77) 126/51 (76) Pulse Ox 95 97 O2 Delivery Mechanical Ventilator Mechanical Ventilator O2 Flow Rate 55.00 55.00 09/03/19 09/03/19 09/03/19 09/03/19 14:28 14:49 15:00 16:00 Pulse 68 65 65 Resp 20 16 16 B/P (MAP) 106/42 131/53 (79) 133/53 (79) Pulse Ox 97 97 97 O2 Delivery Mechanical Ventilator Mechanical Ventilator O2 Flow Rate 55.00 55.00 FiO2 50 09/03/19 00:00 Intake Total 150 ml Output Total 1400 ml Balance -1250 ml Weight (Pounds): 183 Weight (Ounces): 5.0 Weight (Calculated Kilograms): 83.032225 Constitutional: other (on [facility] vent) Results/Procedures: Labs Laboratory Tests 09/02/19 17:20: Lactic Acid Level 0.81 09/02/19 20:00: Urine Color YELLOW, Urine Clarity CLEAR, Urine pH 5.5, Urine Specific [place] <=1.005, Urine Protein NEGATIVE, Urine Glucose (UA) NEGATIVE, Urine Ketones NEGATIVE, Urine Nitrite NEGATIVE, Urine Bilirubin NEGATIVE, Urine Urobilinogen 0.2, Urine Leukocyte Esterase NEGATIVE, Urine RBC (Auto) NEGATIVE, Urine RBC RARE, Urine WBC RARE, Urine Squamous Epithelial Cells RARE, Urine Crystals NONE, Urine Bacteria NEGATIVE, Urine Casts NONE, Urine Mucus NEGATIVE, Urine Culture Indicated NO 09/03/19 02:35: White Blood Count 11.4H, Red Blood Count 2.42L, Hemoglobin 7.1L, Hematocrit 23L, Mean Corpuscular Volume 96, Mean Corpuscular Hemoglobin 29, Mean Corpuscular Hemoglobin Concent 31L, Red Cell Distribution Width 16.4H, Platelet Count 250, Mean Platelet Volume 8.8, Neutrophils (%) (Auto) 71, Lymphocytes (%) (Auto) 18, Monocytes (%) (Auto) 10, Eosinophils (%) (Auto) 1, Basophils (%) (Auto) 0, Neutrophils # (Auto) 8.1H, Lymphocytes # (Auto) 2.1, Monocytes # (Auto) 1.1H, Eosinophils # (Auto) 0.1, Basophils # (Auto) 0.0, Blood Gas Puncture Site LEFT ARTLINE, Blood Gas Patient Temperature 36.4, Arterial Blood pH 7.38, Arterial Blood Partial Pressure CO2 39, Arterial Blood Partial Pressure O2 162H, Arterial Blood HCO3 23, Arterial Blood Total CO2 23.8, Arterial Blood Oxygen Saturation 100, Arterial Blood Base Excess -2.0, Can Test POSITIVE, Blood Gas Ventilator Setting YES, Blood Gas Inspired Oxygen 65, Sodium Level 141, Potassium Level 4.3, Chloride Level 112H, Carbon Dioxide Level 19L, Anion Gap 10, Blood Urea Nitrogen 9, Creatinine 0.73, Estimat Glomerular Filtration Rate > 60, BUN/Creatinine Ratio 12, Glucose Level 138H, Calcium Level 8.4L, Phosphorus Level 3.0, Magnesium Level 2.0, B-Type Natriuretic Peptide 145.2H 09/03/19 15:42: Glucometer 199H Microbiology 09/02/19 Blood Culture - Preliminary, Resulted No growth 09/02/19 Gram Stain - Final, Resulted 09/02/19 Body Fluid Culture, Resulted Pending 09/02/19 Gram Stain - Final, Resulted 09/02/19 Sputum Culture, Resulted Pending Laboratory Tests 09/02/19 04:12 09/02/19 14:45 09/03/19 02:35 A/P: Assessment: Ac resp failure (with transient hypoxia) [facility] Septic shock s/p L total knee arthroplasty on 08/22/19 and quadriceps tendon repair on 08/24/19 Severe, post-op anemia Intermittent sinus tach during this hospitalization Left bundle branch block, chronic History of cardiac catheterization in 2012: mild coronary artery disease; last MPI in March 2019 showing no significant ischemia or infarction, ejection fraction 78 percent. Echo 09/02/19 (Dr Willingham): LVEF 45-50%, no RWMA, mod TR, PASP 40-45 mmHg History of isolated PVCs and few brief runs of nonsustained ventricular tachycardia, she was seen by Dr. Marie and Dr. Lewis as an outpatient. Hyperlipidemia, treated with Lipitor History of mild carotid stenosis H/o tobacco use Plan: * I reviewed the records of her current hospitalization * Support bp as needed * Change enoxaparin from current full-treatment dose to intermediate dose and then to DVT prophylaxis dose (if COVID negative) * Monitor labs JUANJO MARCIAL MD FACP FAC CCDS Sep 03, 2019 16:20
[2019-09-04] VITALS (26 sets, daily range): BP systolic 93–175; BP diastolic 36–93
[2019-09-04] MEDS: DexMEDEtomidine 250 ML DRIP 250 ML IV SCH (00:54)
[2019-09-04] MEDS: MEROPENEM 500 MG/SWFI 10 ML IV PUSH IV SCH ×8 (02:47→19:59)
[2019-09-04] MEDS: LINEZOLID IVPB 300 ML IV SCH (02:47)
[2019-09-04 03:11] LABS: ABG BASE EXCESS 2.7 MMOL/L (-2.5-2.5); ABG OXYGEN SATURATION 98 % (94-100); ABG PCO2 42 MMHG (35-45); ABG PH 7.42 (7.37-7.43); ABG PO2 104 MMHG (79-93); ABG TCO2 28.3 MMOL/L (21.0-31.0)
[2019-09-04 03:12] LABS: BASOPHILS % (AUTO) 0 % (0-10); EOSINOPHILS # (AUTO) 0.2 10^3/uL (0.0-0.3); EOSINOPHILS % (AUTO) 2 % (0-10); HEMATOCRIT 24 % (35-52); HEMOGLOBIN 7.5 G/DL (11.5-16.0); LYMPHOCYTES # (AUTO) 1.8 X 10^3 (1.0-4.0); LYMPHOCYTES % (AUTO) 19 % (12-44); MEAN CORPUSCULAR HEMOGLOBIN 29 PG (25-34); MEAN CORPUSCULAR HGB CONC 31 G/DL (32-36); MEAN CORPUSCULAR VOLUME 94 FL (80-99); MEAN PLATELET VOLUME 8.8 FL (7.4-10.4); MONOCYTES # (AUTO) 0.8 X 10^3 (0.0-1.0); MONOCYTES % (AUTO) 9 % (0-12); NEUTROPHILS # (AUTO) 6.9 X 10^3 (1.8-7.8); NEUTROPHILS % (AUTO) 71 % (42-75); PLATELET COUNT 301 10^3/uL (130-400); RED CELL DISTRIBUTION WIDTH 15.3 % (10.0-14.5); WHITE BLOOD COUNT 9.7 10^3/uL (4.3-11.0)
[2019-09-04 03:14] LABS: ALLENS TEST POSITIVE; INSPIRED O2 40; PATIENT TEMP 36.8; VENTILATOR YES
[2019-09-04 03:33] LABS: CHLORIDE 107 MMOL/L (98-107); POTASSIUM 3.5 MMOL/L (3.6-5.0); SODIUM 142 MMOL/L (135-145)
[2019-09-04 03:34] LABS: CALCIUM 8.5 MG/DL (8.5-10.1)
[2019-09-04 03:35] LABS: GLUCOSE 141 MG/DL (70-105); TRIGLYCERIDES 296 MG/DL (<150)
[2019-09-04 03:36] LABS: CARBON DIOXIDE 24 MMOL/L (21-32)
[2019-09-04 03:38] LABS: CREATININE SERUM 0.63 MG/DL (0.60-1.30); GFR ESTIMATED > 60; PHOSPHORUS 3.4 MG/DL (2.3-4.7)
[2019-09-04 03:39] LABS: BUN/CREATININE RATIO 11
[2019-09-04 03:41] LABS: MAGNESIUM 1.8 MG/DL (1.6-2.4)
[2019-09-04] MEDS: POTASSIUM CL 10MEQ/50ML IVPB 50 ML IV SCH ×4 (05:41→10:15)
[2019-09-04] MEDS ORDERED: POTASSIUM CL 10MEQ/50ML IVPB 50 ML IV SCH (05:45)
[2019-09-04] MEDS ORDERED: FUROSEMIDE 40 MG/4 ML INJ (LASIX) IVP ONE (05:45)
[2019-09-04] MEDS: PROPOFOL DRIP (ICU) 100 ML IV SCH (05:59)
--- NOTE | 2019-09-04 06:00 | Pulmonary Progress Note ---
Subjective Time Seen by a Provider: 05:55 Subjective/Events-last exam Pt appears to be doing better. Sepsis Event Evaluation Height, Weight, BMI Height: 5'4.00" Weight: 183lbs. 5.0oz. 83.606357tz; 35.43 BMI Method:Stated Focused Exam Lactate Level 09/02/19 14:45: Lactic Acid Level 3.35*H 09/02/19 17:20: Lactic Acid Level 0.81 Exam Exam Vital Signs Date Time Temp Pulse Resp B/P (MAP) Pulse Ox O2 Delivery O2 Flow Rate FiO2 09/04/19 05:46 Mechanical Ventilator 30.00 09/04/19 05:00 70 17 121/45 (70) 95 Mechanical Ventilator 40.00 09/04/19 04:00 73 15 129/47 (74) 95 Mechanical Ventilator 40.00 09/04/19 03:00 80 16 109/39 (62) 94 Mechanical Ventilator 40.00 09/04/19 02:00 70 15 142/53 (82) 96 Mechanical Ventilator 40.00 09/04/19 01:00 72 14 119/44 (69) 95 Mechanical Ventilator 40.00 09/04/19 01:00 72 09/04/19 00:57 67 140/50 09/04/19 00:54 71 134/50 09/04/19 00:00 70 14 131/48 (75) 95 Mechanical Ventilator 40.00 09/03/19 23:40 36.2 09/03/19 23:34 75 138/50 09/03/19 23:00 78 17 131/50 (77) 95 Mechanical Ventilator 40.00 09/03/19 22:10 Mechanical Ventilator 40.00 09/03/19 22:04 70 16 97 50 09/03/19 22:00 67 15 130/51 (77) 96 Mechanical Ventilator 45.00 09/03/19 21:00 66 18 129/51 (77) 97 Mechanical Ventilator 45.00 09/03/19 20:55 Mechanical Ventilator 45.00 09/03/19 20:46 67 91/33 09/03/19 20:43 67 133/46 09/03/19 20:00 66 15 133/54 (80) 96 Mechanical Ventilator 50.00 09/03/19 19:00 67 09/03/19 19:00 Mechanical Ventilator 50.00 6/8/20 19:00 67 16 128/52 (77) 97 Mechanical Ventilator 55.00 09/03/19 18:40 66 16 97 50 09/03/19 18:00 65 19 122/48 (72) 97 Mechanical Ventilator 55.00 09/03/19 17:37 118/48 09/03/19 17:36 120/49 09/03/19 17:00 65 17 117/47 (70) 97 Mechanical Ventilator 55.00 09/03/19 16:00 65 16 133/53 (79) 97 Mechanical Ventilator 55.00 09/03/19 16:00 36.8 09/03/19 16:00 97 Mechanical Ventilator 55 09/03/19 15:00 65 16 131/53 (79) 97 Mechanical Ventilator 55.00 09/03/19 14:49 106/42 09/03/19 14:28 68 20 97 50 09/03/19 14:00 65 19 126/51 (76) 97 Mechanical Ventilator 55.00 09/03/19 13:00 64 16 123/54 (77) 95 Mechanical Ventilator 55.00 09/03/19 12:46 66 09/03/19 12:00 36.9 09/03/19 12:00 96 Mechanical Ventilator 55 09/03/19 12:00 69 17 109/47 (67) 93 Mechanical Ventilator 55.00 09/03/19 12:00 116/51 09/03/19 11:00 67 22 106/43 (64) 96 Mechanical Ventilator 55.00 09/03/19 10:41 68 20 95 50 09/03/19 10:00 64 16 119/51 (73) 95 Mechanical Ventilator 55.00 09/03/19 09:40 87/38 09/03/19 09:00 64 19 92/41 (58) 97 Mechanical Ventilator 55.00 09/03/19 08:00 95 Mechanical Ventilator 55 09/03/19 08:00 65 17 94/41 (58) 97 Mechanical Ventilator 55.00 09/03/19 08:00 36.7 09/03/19 07:00 67 15 101/44 (63) 96 Mechanical Ventilator 55.00 09/03/19 07:00 67 09/03/19 06:38 66 20 96 55 09/03/19 06:00 64 18 108/47 (67) 96 Mechanical Ventilator 55.00 I & O 09/04/19 07:00 Intake Total 670 ml Output Total 2625 ml Balance -1955 ml Height & Weight Height: 5'4.00" Weight: 183lbs. 5.0oz. 83.698428jy; 35.43 BMI Method:Stated General Appearance: No Apparent Distress, Obese, Other (Intubated and sedated) HEENT: Other (Endotracheal tube in place) Neck: Normal Inspection, Supple Respiratory: Lungs Clear, Normal Breath Sounds, No Respiratory Distress, Other (Intubated and mechanically ventilated) Cardiovascular: Regular Rate, Rhythm, No Murmur Gastrointestinal: normal bowel sounds, soft, no organomegaly Extremity: Normal Inspection, Non Tender, Pedal Edema Neurologic/Psychiatric: Other (Sedated) Skin: Normal Color, Warm/Dry Results Lab Laboratory Tests 09/02/19 14:45 09/03/19 02:35 09/04/19 02:45 Assessment/Plan Assessment/Plan Acute respiratory failure - Pa02/Fi02 =260 -Continue vent - -D/C propofol and Versed -Obtain weaning parameters -Will plan on weaning vent today -Check CXR -Give lasix 40mg IV x 1 and Check BNP -COVID is neg -D/C isolation -CTA is negative -RVP pending -Influ is neg - urine and strep Ag - Neg -MRSA swab is neg Sepsis -Renee cultures pending - Continue Merrem and D/C Zyvox Anemia -Monitor - lovenox Aflutter s/p cardioversion/adenosin -Lovenox -Cardiology following s/p TKA and quadriceps repair Osteogenesis imperfecta Ortho consulted, appreciate recs PT/OT MAHENDRA BLAND DO Sep 04, 2019 06:00
[2019-09-04] MEDS: RT-ALBUTEROL INHALER HFA (VENTOLIN HFA) 8 GM IH SCH ×6 (06:27→21:53)
--- NOTE | 2019-09-04 06:58 | NUR ---
Dr Beebe informed this RN that pt no longer needs to be in airborne precautions.
[2019-09-04] MEDS: KCL 20 MEQ TAB (K-DUR) PO SCH (07:20)
[2019-09-04] MEDS: MAGNESIUM 1 GM/100 ML IVPB 100 ML IV SCH (07:20)
[2019-09-04] MEDS: ENOXAPARIN 40 MG/0.4 ML (LOVENOX) SYR SC SCH (07:57)
[2019-09-04] MEDS: PANTOPRAZOLE 40 MG (PROTONIX) VIAL IV SCH (07:57)
[2019-09-04] MEDS: FAMOTIDINE 20 MG (PEPCID) TABLET PO SCH ×2 (07:57→20:00)
--- NOTE | 2019-09-04 08:19 | Diagnostic Imaging Report ---
INDICATION: Follow-up. Shortness of air. Intubated patient. COMPARISON: 09/02/2019 FINDINGS: Single frontal radiographic view of the chest was obtained and demonstrates indwelling endotracheal tube with tip below the clavicular heads and approximately 1.3 cm above the tay. Gastric tube is also seen, although heavily obscured secondary to overlying soft tissue attenuation. Right internal jugular central venous catheter is also present with tip in the right atrium. Lungs show low inspiratory volumes with confluent alveolar opacity within the right lung base. Overall, there has been improved aeration compared to 09/02/2019. No large effusion or pneumothorax is seen. Cardiac silhouette and pulmonary vasculature stable. IMPRESSION: 1. Overall improved aeration, but with persistent low lung volumes and probable residual infiltrate in the right lower lung. 2. Lines and tubes as above. Dictated by: Dictated on workstation # [id number]
--- NOTE | 2019-09-04 09:15 | Physical Therapy Progress Note ---
Therapy Progress Note Patient remains sedated and intubated. Per RN, will attempt to extubate on this date, however, patient BP continues to be low. PT will continue to monitor patient status. WILVER GRIMM PT Sep 04, 2019 09:15
--- NOTE | 2019-09-04 10:04 | Progress Note - Cardiology ---
Cardiology SOAP Progress Note Subjective: In bed, remains on the vent, but alert and following commands. Objective: I&O/Vital Signs 09/06/19 09/06/19 09/07/19 09/07/19 20:35 20:43 00:00 01:00 Temp 36.4 Pulse 101 91 Resp 18 B/P (MAP) 120/60 (80) Pulse Ox 95 98 O2 Delivery Room Air Room Air Room Air 09/07/19 09/07/19 09/07/19 02:42 03:36 07:06 Temp 36.4 Pulse 90 92 Resp 18 B/P (MAP) 127/73 (91) Pulse Ox 97 97 O2 Delivery Room Air Room Air 09/07/19 00:00 Intake Total 1480 ml Output Total 1400 ml Balance 80 ml Weight (Pounds): 183 Weight (Ounces): 5.0 Weight (Calculated Kilograms): 83.538139 Constitutional: other (on mech vent, alert) Respiratory: chest expansion is symmetric, chest is bilaterally symmetric, other (diminished lower lobes bilat) Cardiovascular: regular rate-rhythm; No JVD; S1 and S2 Gastrointestional: soft, audible bowel sounds Extremities: other (Brace to left leg), no lower extremity edema bilateral Neurologic/Psychiatric: other (moves extremities and following command) Skin: No rash on exposed areas, No ulcerations on exposed areas Results/Procedures: Labs Laboratory Tests 09/06/19 13:08: Glucometer 112H 09/06/19 18:19: Glucometer 129H 09/07/19 00:11: Glucometer 122H 09/07/19 06:06: White Blood Count 16.3H, Red Blood Count 2.98L, Hemoglobin 8.5L, Hematocrit 28L, Mean Corpuscular Volume 95, Mean Corpuscular Hemoglobin 29, Mean Corpuscular Hemoglobin Concent 30L, Red Cell Distribution Width 16.1H, Platelet Count 552H, Mean Platelet Volume 8.3, Neutrophils (%) (Auto) 75, Lymphocytes (%) (Auto) 15, Monocytes (%) (Auto) 8, Eosinophils (%) (Auto) 2, Basophils (%) (Auto) 0, Neutrophils # (Auto) 12.2H, Lymphocytes # (Auto) 2.4, Monocytes # (Auto) 1.2H, Eosinophils # (Auto) 0.4H, Basophils # (Auto) 0.0, Neutrophils % (Manual) 77, Lymphocytes % (Manual) 13, Monocytes % (Manual) 5, Eosinophils % (Manual) 3, Band Neutrophils 2, Polychromasia SLIGHT, Anisocytosis MODERATE, Sodium Level 140, Potassium Level 4.1, Chloride Level 104, Carbon Dioxide Level 27, Anion Gap 9, Blood Urea Nitrogen 10, Creatinine 0.59L, Estimat Glomerular Filtration Rate > 60, BUN/Creatinine Ratio 17, Glucose Level 103, Calcium Level 8.9, Phosphorus Level 3.0, Magnesium Level 2.1 Microbiology 09/02/19 Blood Culture - Preliminary, Resulted No growth 09/02/19 Gram Stain - Final, Complete 09/02/19 Body Fluid Culture - Final, Complete No growth 09/02/19 Gram Stain - Final, Complete 09/02/19 Sputum Culture - Final, Complete Usual upper respiratory kelsey YEAST Procedures NAME: TIM S[facility]LAND [facility] REC#: [id number] PT STATUS: ADM IN : 1955 PHYSICIAN: MAHENDRA BLAND DO ADMIT DATE: 08/31/19/ICU Draft Date of Exam:09/04/19 CHEST 1 VIEW, AP/PA ONLY INDICATION: Follow-up. Shortness of air. Intubated patient. COMPARISON: 09/02/2019 FINDINGS: Single frontal radiographic view of the chest was obtained and demonstrates indwelling endotracheal tube with tip below the clavicular heads and approximately 1.3 cm above the tay. Gastric tube is also seen, although heavily obscured secondary to overlying soft tissue attenuation. Right internal jugular central venous catheter is also present with tip in the right atrium. Lungs show low inspiratory volumes with confluent alveolar opacity within the right lung base. Overall, there has been improved aeration compared to 09/02/2019. No large effusion or pneumothorax is seen. Cardiac silhouette and pulmonary vasculature stable. IMPRESSION: 1. Overall improved aeration, but with persistent low lung volumes and probable residual infiltrate in the right lower lung. 2. Lines and tubes as above. Dictated on workstation # [id number] Dict: 09/04/1914 Trans: 09/04/19 0819 [id number] Interpreted by: YAAY MORENO MD Electronically signed by: A/P: Assessment: Ac resp failure (with transient hypoxia) [facility] planned extubation this morning Septic shock with hypotension requiring pressor support s/p L total knee arthroplasty on 08/22/19 and quadriceps tendon repair on 08/24/19 Severe, post-op anemia Intermittent sinus tach during this hospitalization Left bundle branch block, chronic History of cardiac catheterization in 2013: mild coronary artery disease; last MPI in March 2019 showing no significant ischemia or infarction, ejection fraction 78 percent. Echo 09/02/19 (Dr Willingham): LVEF 45-50%, no RWMA, mod TR, PASP 40-45 mmHg History of isolated PVCs and few brief runs of nonsustained ventricular tachycardia, she was seen by Dr. Marie and Dr. Lewis as an outpatient. Hyperlipidemia, treated with Lipitor History of mild carotid stenosis H/o tobacco use Plan: * Extubation planned for today * Anemia - management per medical/surgical services * Hypotension requiring pressor support at this time * COVID status negative - changed enoxaparin to DVT prophylaxis as noted below * Change enoxaparin from current full-treatment dose to intermediate dose and then to DVT prophylaxis dose (if COVID negative) * Monitor labs * Replace electrolytes ANITA TREVIÑO Sep 04, 2019 10:04
[2019-09-04] MEDS ORDERED: ENOXAPARIN 40 MG/0.4 ML (LOVENOX) SYR SQ SCH (10:15)
[2019-09-04 10:29] LABS: ABG BASE EXCESS 3.6 MMOL/L (-2.5-2.5); ABG OXYGEN SATURATION 100 % (94-100); ABG PCO2 31 MMHG (35-45); ABG PH 7.53 (7.37-7.43); ABG PO2 151 MMHG (79-93); ABG TCO2 27.6 MMOL/L (21.0-31.0); ALLENS TEST POSITIVE; INSPIRED O2 30%; PATIENT TEMP 35.8; VENTILATOR YES
[2019-09-04] MEDS ORDERED: ADENOSINE 6 MG/2 ML (ADENOCARD) VIAL IV ONE (10:32)
--- NOTE | 2019-09-04 11:42 | NUR ---
ORDERS RECEIVED TO EXTUBATE PT, PRIOR TO EXTUBATION PT ABLE TO FOLLOW ALL COMMANDS, AND IS ALERT AND AWARE OF SURROUNDINGS. RT ON FLOOR AT TIME OF ORDERS, PT EXTUBATED AT 1050 AND PLACED ON 4 LITERS NC. SA02 NOTED TO BE 98-99%, PT VOICES NO C/O AT THIS TIME, CALL LIGHT AND OTHER PERSONAL ITEMS WITHIN REACH, WILL CONTINUE TO MONITOR CLOSELY.
[2019-09-04 11:45] LABS: RSV PCR TEST Not Detected (Not Detected)
--- NOTE | 2019-09-04 12:58 | Progress Note ---
Standard Progress Note Progress Notes/Assess & Plan Date Seen by a Provider: Sep 04, 2019 Time Seen by a Provider: 12:56 Progress/Assessment & Plan feeling much better today. Denies knee pain Vital Signs Date Time Temp Pulse Resp B/P (MAP) Pulse Ox O2 Delivery O2 Flow Rate FiO2 09/01/19 06:00 84 20 109/68 (82) 99 Nasal Cannula 2.00 09/01/19 05:00 83 18 104/63 (77) 100 Nasal Cannula 2.00 09/01/19 04:00 86 18 75/55 (62) 98 Nasal Cannula 2.00 09/01/19 04:00 37.2 09/01/19 04:00 94 Nasal Cannula 2.00 09/01/19 03:00 93 20 84/44 (57) 100 Nasal Cannula 2.00 09/01/19 02:00 100 18 95/56 (69) 91 Nasal Cannula 2.00 09/01/19 01:00 106 09/01/19 01:00 106 16 98/59 (72) 94 Nasal Cannula 2.00 09/01/19 00:49 36.7 Nasal Cannula 2.00 09/01/19 00:00 94 Nasal Cannula 2.00 09/01/19 00:00 115 18 100/57 (71) 96 Room Air 08/31/19 23:00 117 23 129/60 (83) 92 Room Air 08/31/19 23:00 37.7 08/31/19 22:30 120 22 125/67 (86) 94 Room Air 08/31/19 22:15 120 23 123/63 (83) 92 Room Air 08/31/19 22:00 121 16 124/64 (84) 92 Room Air 08/31/19 21:45 147 17 128/66 (86) 96 Room Air 08/31/19 21:30 39.0 08/31/19 21:30 148 I & O 09/01/19 07:00 Intake Total 670 ml Output Total 850 ml Balance -180 ml Laboratory Tests Test 08/31/19 21:55 08/31/19 23:10 09/01/19 01:30 Range/Units Blood Gas Puncture Site LEFT RADIAL Blood Gas Patient Temperature 39.0 Arterial Blood pH 7.47 H 7.37-7.43 Arterial Blood Partial Pressure CO2 31 L 35-45 MMHG Arterial Blood Partial Pressure O2 83 79-93 MMHG Arterial Blood HCO3 21 L 23-27 MMOL/L Arterial Blood Total CO2 22.1 21.0-31.0 MMOL/L Arterial Blood Oxygen Saturation 96 94-100 % Arterial Blood Base Excess -1.6 -2.5-2.5 MMOL/L Can Test POSITIVE Blood Gas Ventilator Setting NO Blood Gas Inspired Oxygen RA Lactic Acid Level 2.77 *H 1.47 0.50-2.00 MMOL/L White Blood Count 12.6 H 4.3-11.0 10^3/uL Red Blood Count 2.87 L 4.35-5.85 10^6/uL Hemoglobin 8.3 L 11.5-16.0 G/DL Hematocrit 27 L 35-52 % Mean Corpuscular Volume 92 80-99 FL Mean Corpuscular Hemoglobin 29 25-34 PG Mean Corpuscular Hemoglobin Concent 31 L 32-36 G/DL Red Cell Distribution Width 15.9 H 10.0-14.5 % Platelet Count 302 130-400 10^3/uL Mean Platelet Volume 8.5 7.4-10.4 FL Neutrophils (%) (Auto) 96 H 42-75 % Lymphocytes (%) (Auto) 3 L 12-44 % Monocytes (%) (Auto) 1 0-12 % Eosinophils (%) (Auto) 0 0-10 % Basophils (%) (Auto) 0 0-10 % Neutrophils # (Auto) 12.1 H 1.8-7.8 X 10^3 Lymphocytes # (Auto) 0.4 L 1.0-4.0 X 10^3 Monocytes # (Auto) 0.1 0.0-1.0 X 10^3 Eosinophils # (Auto) 0.0 0.0-0.3 10^3/uL Basophils # (Auto) 0.0 0.0-0.1 10^3/uL Sodium Level 134 L 135-145 MMOL/L Potassium Level 3.1 L 3.6-5.0 MMOL/L Chloride Level 101 98-107 MMOL/L Carbon Dioxide Level 20 L 21-32 MMOL/L Anion Gap 13 5-14 MMOL/L Blood Urea Nitrogen 14 7-18 MG/DL Creatinine 0.96 0.60-1.30 MG/DL Estimat Glomerular Filtration Rate 59 BUN/Creatinine Ratio 15 Glucose Level 108 H 70-105 MG/DL Calcium Level 8.7 8.5-10.1 MG/DL Phosphorus Level 2.2 L 2.3-4.7 MG/DL Magnesium Level 1.8 1.6-2.4 MG/DL L knee incision clean and dry without erythema or warmth. echymosis present. no calf tenderness. Neg Shawn's s/p L TKA with subsequent quad rupture and repair i do not believe the knee is the source of the patient's decompensation. Ok to continue PT from my standpoint Final Diagnosis extubated Laboratory Tests Test 09/03/19 15:42 09/03/19 17:31 09/04/19 02:45 09/04/19 10:18 Range/Units Glucometer 199 H 138 H 70-110 MG/DL White Blood Count 9.7 4.3-11.0 10^3/uL Red Blood Count 2.59 L 4.35-5.85 10^6/uL Hemoglobin 7.5 L 11.5-16.0 G/DL Hematocrit 24 L 35-52 % Mean Corpuscular Volume 94 80-99 FL Mean Corpuscular Hemoglobin 29 25-34 PG Mean Corpuscular Hemoglobin Concent 31 L 32-36 G/DL Red Cell Distribution Width 15.3 H 10.0-14.5 % Platelet Count 301 130-400 10^3/uL Mean Platelet Volume 8.8 7.4-10.4 FL Neutrophils (%) (Auto) 71 42-75 % Lymphocytes (%) (Auto) 19 12-44 % Monocytes (%) (Auto) 9 0-12 % Eosinophils (%) (Auto) 2 0-10 % Basophils (%) (Auto) 0 0-10 % Neutrophils # (Auto) 6.9 1.8-7.8 X 10^3 Lymphocytes # (Auto) 1.8 1.0-4.0 X 10^3 Monocytes # (Auto) 0.8 0.0-1.0 X 10^3 Eosinophils # (Auto) 0.2 0.0-0.3 10^3/uL Basophils # (Auto) 0.0 0.0-0.1 10^3/uL Blood Gas Puncture Site LT ARTLINE LEFT RADIAL Blood Gas Patient Temperature 36.8 35.8 Arterial Blood pH 7.42 7.53 H 7.37-7.43 Arterial Blood Partial Pressure CO2 42 31 L 35-45 MMHG Arterial Blood Partial Pressure O2 104 H 151 H 79-93 MMHG Arterial Blood HCO3 27 27 23-27 MMOL/L Arterial Blood Total CO2 28.3 27.6 21.0-31.0 MMOL/L Arterial Blood Oxygen Saturation 98 100 94-100 % Arterial Blood Base Excess 2.7 H 3.6 H -2.5-2.5 MMOL/L Can Test POSITIVE POSITIVE Blood Gas Ventilator Setting YES YES Blood Gas Inspired Oxygen 40 30% Sodium Level 142 135-145 MMOL/L Potassium Level 3.5 L 3.6-5.0 MMOL/L Chloride Level 107 98-107 MMOL/L Carbon Dioxide Level 24 21-32 MMOL/L Anion Gap 11 5-14 MMOL/L Blood Urea Nitrogen 7 7-18 MG/DL Creatinine 0.63 0.60-1.30 MG/DL Estimat Glomerular Filtration Rate > 60 BUN/Creatinine Ratio 11 Glucose Level 141 H 70-105 MG/DL Calcium Level 8.5 8.5-10.1 MG/DL Phosphorus Level 3.4 2.3-4.7 MG/DL Magnesium Level 1.8 1.6-2.4 MG/DL B-Type Natriuretic Peptide 58.9 <100.0 PG/ML Triglycerides Level 296 H <150 MG/DL Test 09/04/19 11:41 Range/Units Glucometer 95 70-110 MG/DL Vital Signs Date Time Temp Pulse Resp B/P (MAP) Pulse Ox O2 Delivery O2 Flow Rate FiO2 09/04/19 12:41 86 09/04/19 12:00 36.8 09/04/19 12:00 88 11 119/49 (72) Nasal Cannula 4.00 09/04/19 11:00 88 18 114/41 (65) 95 Nasal Cannula 4.00 09/04/19 10:00 71 11 121/45 (70) 94 Mechanical Ventilator 30.00 09/04/19 09:50 76 26 96 30 09/04/19 09:00 70 25 123/47 (72) 96 Mechanical Ventilator 30.00 09/04/19 08:00 68 18 105/42 (63) 95 Mechanical Ventilator 30.00 09/04/19 08:00 35.8 09/04/19 08:00 Mechanical Ventilator 40 09/04/19 07:00 70 09/04/19 07:00 70 17 114/46 (68) 95 Mechanical Ventilator 30.00 09/04/19 06:27 69 17 95 30 09/04/19 06:17 134/56 09/04/19 06:04 98/40 09/04/19 06:00 70 16 93/36 (55) 95 Mechanical Ventilator 30.00 09/04/19 05:46 Mechanical Ventilator 30.00 09/04/19 05:00 70 17 121/45 (70) 95 Mechanical Ventilator 40.00 09/04/19 04:00 Mechanical Ventilator 40 09/04/19 04:00 73 15 129/47 (74) 95 Mechanical Ventilator 40.00 09/04/19 03:00 80 16 109/39 (62) 94 Mechanical Ventilator 40.00 09/04/19 02:00 70 15 142/53 (82) 96 Mechanical Ventilator 40.00 09/04/19 01:00 72 14 119/44 (69) 95 Mechanical Ventilator 40.00 09/04/19 01:00 72 09/04/19 00:57 67 140/50 09/04/19 00:54 71 134/50 09/04/19 00:00 70 14 131/48 (75) 95 Mechanical Ventilator 40.00 09/04/19 00:00 Mechanical Ventilator 40 09/03/19 23:40 36.2 09/03/19 23:34 75 138/50 09/03/19 23:00 78 17 131/50 (77) 95 Mechanical Ventilator 40.00 09/03/19 22:10 Mechanical Ventilator 40.00 09/03/19 22:04 70 16 97 50 09/03/19 22:00 67 15 130/51 (77) 96 Mechanical Ventilator 45.00 09/03/19 21:00 66 18 129/51 (77) 97 Mechanical Ventilator 45.00 09/03/19 20:55 Mechanical Ventilator 45.00 09/03/19 20:46 67 91/33 09/03/19 20:43 67 133/46 09/03/19 20:00 66 15 133/54 (80) 96 Mechanical Ventilator 50.00 09/03/19 20:00 Mechanical Ventilator 50 09/03/19 19:00 67 09/03/19 19:00 Mechanical Ventilator 50.00 09/03/19 19:00 67 16 128/52 (77) 97 Mechanical Ventilator 55.00 09/03/19 18:40 66 16 97 50 6/8/20 18:00 65 19 122/48 (72) 97 Mechanical Ventilator 55.00 09/03/19 17:37 118/48 09/03/19 17:36 120/49 09/03/19 17:00 65 17 117/47 (70) 97 Mechanical Ventilator 55.00 09/03/19 16:00 65 16 133/53 (79) 97 Mechanical Ventilator 55.00 09/03/19 16:00 36.8 09/03/19 16:00 97 Mechanical Ventilator 55 09/03/19 15:00 65 16 131/53 (79) 97 Mechanical Ventilator 55.00 09/03/19 14:49 106/42 09/03/19 14:28 68 20 97 50 09/03/19 14:00 65 19 126/51 (76) 97 Mechanical Ventilator 55.00 09/03/19 13:00 64 16 123/54 (77) 95 Mechanical Ventilator 55.00 I & O 09/04/19 07:00 Intake Total 870 ml Output Total 3500 ml Balance -2630 ml cultures negative thus far LLE--incision clean and dry. No erythema s/p LTKA and quad repair will follow cxs Focused Exam Lactate Level 09/02/19 14:45: Lactic Acid Level 3.35*H 09/02/19 17:20: Lactic Acid Level 0.81 REFUGIO MANZANARES MD Sep 04, 2019 12:58
--- NOTE | 2019-09-04 13:37 | Electrophysiology Consultation ---
HPI-Cardiology Cardiology Consultation: Date of Consultation 09/04/19 Date of Admission Attending Physician Chica Lama MD Admitting Physician Serina,Local Physician Consulting Physician Dany LEWIS MD HPI: Time Seen by a Provider: 12:40 Chief Complaint: Shortness of breath This is a 64-year-old lady who follows with Dr. Reaves for cardiology. I follow her in the office for electrophysiology for PVCs and nonsustained ventricular tachycardia. She had recent orthopedic surgery with Dr. Gann, however during rehabilitation she had significant shortness of breath with hypotension and fever. The differential diagnosis included COVID-19 and she was put in isolation in the ICU with septic workup and appropriate therapy. She was intubated initially. But was extubated recently. She is tired but denies any significant palpitations, chest pain or shortness of breath during my interview. She denies active smoking. Pertinent family history is negative. Review of Systems-Cardiology Review of Systems Constitutional: As described under HPI; No As described under HPI, No no symptoms reported, No chills, No fever, No lightheadedness; tiredness Eyes: No As described under HPI, No no symptoms reported, No blindness, No blurred vision, No contact lenses, No drainage, No decreased acuity, No foreign body sensation, No pain, No vision change Ears/Nose/Throat: No As described under HPI, No no symptoms reported, No chronic hearing loss, No ear discharge, No ear pain, No nasal drainage, No ulcerations Respiratory: No no symptoms reported; As described under HPI; No As described under HPI, No cough, No orthopnea, No shortness of breath, No SOB with excertion Cardiovascular: No no symptoms reported; As described under HPI; No As described under HPI, No chest pain, No edema, No irregular heart rate, No lightheadedness, No palpitations Gastrointestinal: No no symptoms reported, No As described under HPI, No abdomen distended, No abdominal pain, No blood streaked bowels, No constipation, No diarrhea, No nausea, No vomiting, No stool coloration changes Genitourinary: No As described under HPI, No burning, No dysuria, No discharge, No frequency, No flank pain, No hematuria, No urgency : Yes : No Skin: No rash, No skin related problems, No ulcerations Psychiatric/Neurological: No anxiety, No depression, No seizure, No focal weakness, No syncope Hematologic: No bleeding abnormalities [id number] Hx Patient Social History Marrital Status: Employed/Student: employed Alcohol Use: Denies Use Recreational Drug Use: No Smoking Status: Current Everyday Smoker Type Used: Cigarettes Recent Foreign Travel: No Recent Infectious Disease Expo: No Physical Abuse Screen: No Sexual Abuse: No Immunizations Up To Date Date of Influenza Vaccine: Jan 10, 2017 Past Medical History PMH As described under Assessment. Family Medical History Family History: Alcoholism G8 BROTHER, Onset:25's - 30 Arthritis 19 MOTHER, , Age:60 years and older G8 SISTER Cardiovascular disease 19 FATHER, , Age:60 years and older 19 MOTHER, , Age:60 years and older G8 BROTHER G8 BROTHER G8 BROTHER G8 SISTER G8 SISTER Cataracts 19 MOTHER, , Age:60 years and older G8 BROTHER Colon cancer G8 BROTHER G8 BROTHER Glaucoma 19 MOTHER, , Age:60 years and older Respiratory disorder G8 BROTHER Allergies and Home Medications Allergies Coded Allergies: cephalexin (Unverified Adverse Reaction, Intermediate, VOMITING, 08/22/19) pravastatin (Unverified Adverse Reaction, Mild, NAUSEA, 08/22/19) Home Medications Acetaminophen 325 Mg Capsule, 650 MG PO TID, (Reported) Aspirin 81 Mg Tab.chew, 81 MG PO DAILY, (Reported) Atorvastatin Calcium 10 Mg Tablet, 10 MG PO HS, (Reported) Famotidine 20 Mg Tablet, 40 MG PO DAILY, (Reported) Metoprolol Succinate 25 Mg Tab.er.24h, 25 MG PO BID, (Reported) Oxycodone HCl/Acetaminophen 1 Each Tablet, 1 TAB PO Q4H Prescribed by: REFUGIO GANN on 08/22/19 0730 Patient Home Medication List Home Medication List Reviewed: Yes Physical Exam-Cardiology Physical Exam Vital Signs/I&O 09/04/19 09/04/19 09/04/19 09/04/19 02:00 03:00 04:00 04:00 Pulse 70 80 73 Resp 15 16 15 B/P (MAP) 142/53 (82) 109/39 (62) 129/47 (74) Pulse Ox 96 94 95 O2 Delivery Mechanical Ventilator Mechanical Ventilator Mechanical Ventilator Mechanical Ventilator O2 Flow Rate 40.00 40.00 40.00 FiO2 40 609/04/19 09/04/19 09/04/19 05:00 05:46 06:00 06:04 Pulse 70 70 Resp 17 16 B/P (MAP) 121/45 (70) 93/36 (55) 98/40 Pulse Ox 95 95 O2 Delivery Mechanical Ventilator Mechanical Ventilator Mechanical Ventilator O2 Flow Rate 40.00 30.00 30.00 09/04/19 09/04/19 09/04/19 09/04/19 06:17 06:27 07:00 07:00 Pulse 69 70 70 Resp 17 17 B/P (MAP) 134/56 114/46 (68) Pulse Ox 95 95 O2 Delivery Mechanical Ventilator O2 Flow Rate 30.00 FiO2 30 09/04/19 09/04/19 09/04/19 09/04/19 08:00 08:00 08:00 09:00 Temp 35.8 Pulse 68 70 Resp 18 25 B/P (MAP) 105/42 (63) 123/47 (72) Pulse Ox 95 96 O2 Delivery Mechanical Ventilator Mechanical Ventilator Mechanical Ventilator O2 Flow Rate 30.00 30.00 FiO2 40 09/04/19 09/04/19 09/04/19 09/04/19 09:50 10:00 11:00 12:00 Pulse 76 71 88 88 Resp 26 11 18 11 B/P (MAP) 121/45 (70) 114/41 (65) 119/49 (72) Pulse Ox 96 94 95 O2 Delivery Mechanical Ventilator Nasal Cannula Nasal Cannula O2 Flow Rate 30.00 4.00 4.00 FiO2 30 09/04/19 09/04/19 12:00 12:41 Temp 36.8 Pulse 86 09/04/19 00:00 Intake Total 110 ml Output Total 1975 ml Balance -1865 ml Capillary Refill : Constitutional: AAO x 3 HEENT: PERRL; No discharge; hearing is well preserved, oral hygience is good; No ulceration, No xanthelasmas are seen Neck: No carotid bruit; carotid pulses are 2 + bilaterally Respiratory: chest expansion is symmetric, chest is bilaterally symmetric, other (diminished lower lobes bilat) Cardiovascular: regular rate-rhythm; No JVD; tachycardia, S1 and S2 Gastrointestinal: soft, audible bowel sounds Rectal: deferred Extremities: normal range of motion, non-tender, normal inspection, other (Brace to left leg), no lower extremity edema bilateral Neurologic/Psychiatric: no motor/sensory deficits, alert, normal mood/affect, oriented x 3, other (moves extremities and following command) Skin: normal color, warm/dry; No rash on exposed areas, No ulcerations on exposed areas Data Review Labs Laboratory Tests 09/03/19 15:42: Glucometer 199H 09/03/19 17:31: Glucometer 138H 09/04/19 02:45: White Blood Count 9.7, Red Blood Count 2.59L, Hemoglobin 7.5L, Hematocrit 24L, Mean Corpuscular Volume 94, Mean Corpuscular Hemoglobin 29, Mean Corpuscular Hem oglobin Concent 31L, Red Cell Distribution Width 15.3H, Platelet Count 301, Mean Platelet Volume 8.8, Neutrophils (%) (Auto) 71, Lymphocytes (%) (Auto) 19, Monocytes (%) (Auto) 9, Eosinophils (%) (Auto) 2, Basophils (%) (Auto) 0, Neutrophils # (Auto) 6.9, Lymphocytes # (Auto) 1.8, Monocytes # (Auto) 0.8, Eosinophils # (Auto) 0.2, Basophils # (Auto) 0.0, Blood Gas Puncture Site LT ARTLINE, Blood Gas Patient Temperature 36.8, Arterial Blood pH 7.42, Arterial Blood Partial Pressure CO2 42, Arterial Blood Partial Pressure O2 104H, Arterial Blood HCO3 27, Arterial Blood Total CO2 28.3, Arterial Blood Oxygen Saturation 98, Arterial Blood Base Excess 2.7H, Can Test POSITIVE, Blood Gas Ventilator Setting YES, Blood Gas Inspired Oxygen 40, Sodium Level 142, Potassium Level 3.5L, Chloride Level 107, Carbon Dioxide Level 24, Anion Gap 11, Blood Urea Nitrogen 7, Creatinine 0.63, Estimat Glomerular Filtration Rate > 60, BUN/Cre atinine Ratio 11, Glucose Level 141H, Calcium Level 8.5, Phosphorus Level 3.4, Magnesium Level 1.8, B-Type Natriuretic Peptide 58.9, Triglycerides Level 296H 09/04/19 10:18: Blood Gas Puncture Site LEFT RADIAL, Blood Gas Patient Temperature 35.8, Arterial Blood pH 7.53H, Arterial Blood Partial Pressure CO2 31L, Arterial Blood Partial Pressure O2 151H, Arterial Blood HCO3 27, Arterial Blood Total CO2 27.6, Arterial Blood Oxygen Saturation 100, Arterial Blood Base Excess 3.6H, Can Test POSITIVE, Blood Gas Ventilator Setting YES, Blood Gas Inspired Oxygen 30% 09/04/19 11:41: Glucometer 95 Microbiology 09/02/19 Blood Culture - Preliminary, Resulted No growth 09/02/19 Gram Stain - Final, Resulted 09/02/19 Body Fluid Culture - Preliminary, Resulted No growth 09/02/19 Gram Stain - Final, Complete 09/02/19 Sputum Culture - Final, Complete Usual upper respiratory kelsey YEAST ECG Impression ECG Initial ECG Rhythm: S.Tach A/P-Cardiology Assessment/Admission Diagnosis Sepsis, Acute Respiratory failure, Mild CAD, History of PVCs, Nonsustained ventricular tachycardia Plan No acute cardiac electrophysiology concerns. Patient has history of PVCs and nonsustained ventricular tachycardia with mild CAD and normal LV function. Therefore will continue beta blockers when appropriate with Dr. Reaves. No acute arrhythmias during this hospitalization. Sinus tachycardia due to significant systemic illness. Potassium 3.5 and magnesium 1.8. Will recommend potassium and regulations repletion. Defer treatment of sepsis and acute respiratory failure to the primary team. Thank you for your consultation. Please call me if you have any questions. Rafy Lewis MD, FACP, FACC, FSCAI, FHRS, CCDS Interventional Cardiology Cardiac Electrophysiology Vascular Medicine and Endovascular Interventions Clinical Quality Measures DVT/VTE Risk/Contraindication: Risk Factor Score Per Nursin RFS Level Per Nursing on Admit: 4+=Very High Dany LEWIS MD Sep 04, 2019 13:37
--- NOTE | 2019-09-04 13:48 | Progress Note - Hospitalist ---
Subjective HPI/CC On Admission Date Seen by Provider: Sep 04, 2019 Time Seen by Provider: 09:20 Pt is a 64yoCF with a PMH of osteogenesis imperfecta who underwent TKA and quadriceps rupture repair last week. She was admitted to rehab following these surgeries but developed hypotension, fever, and tachycardia overnight and was transferred to the ICU. There was concern for sepsis and CXR and UA were done and were normal. Dr Gann and I examined her knee which does not appear to be infected and is healing well. CTA was done to rule out PE and was negative. It did not show any ground glasss opacities either. She does not have a cough and is on room air. This morning she states she is feeling better but still mentally foggy. No other complaints or concerns. Subjective/Events-last exam She remains intubated and her sedation is being weaned. She is awake and alert. She is able to follow commands and move all extremities. She is able lift her head off the bed. Focused Exam Lactate Level 09/02/19 14:45: Lactic Acid Level 3.35*H 09/02/19 17:20: Lactic Acid Level 0.81 Objective Exam Vital Signs Vital Signs Date Time Temp Pulse Resp B/P (MAP) Pulse Ox O2 Delivery O2 Flow Rate FiO2 09/04/19 13:33 100 Nasal Cannula 4.00 09/04/19 12:41 86 09/04/19 12:00 36.8 09/04/19 12:00 11 119/49 (72) 09/04/19 09:50 30 Capillary Refill : General Appearance: No Apparent Distress, Obese Respiratory: Lungs Clear, Normal Breath Sounds, No Respiratory Distress Cardiovascular: Regular Rate, Rhythm, No Edema, No Murmur Gastrointestinal: Normal Bowel Sounds, Non Tender, Soft Extremity: Normal Inspection, Non Tender, No Pedal Edema Neurologic/Psychiatric: Alert, No Motor/Sensory Deficits, Normal Mood/Affect Skin: Normal Color, Warm/Dry Results/Procedures Lab Laboratory Tests 09/04/19 02:45 Patient resulted labs reviewed. Imaging: Reviewed Imaging Report Assessment/Plan Assessment and Plan Assess & Plan/Chief Complaint Severe sepsis Multifocal pneumonia Acute respiratory failure with hypoxia Endotracheally intubated Pulmonology consulted, appreciate assistance Chest x-ray with bilateral infiltrates COVID negative Continue Merrem Planning for extubation this morning s/p TKA and quadriceps repair Osteogenesis imperfecta Ortho consulted, appreciate recs PT/OT DVT prophylaxis: Lovenox Lactic acidosis, resolved Diagnosis/Problems Diagnosis/Problems (1) Severe sepsis Status: Acute (2) Lactic acidosis Status: Acute (3) Multifocal pneumonia Status: Acute (4) Quadriceps tendon rupture Status: Acute Qualifiers: Encounter type: subsequent encounter (5) Osteoarthritis of left knee Status: Chronic Qualifiers: Osteoarthritis type: primary Qualified Codes: M17.12 - Unilateral primary osteoarthritis, left knee (6) Acute respiratory failure with hypoxia (7) Endotracheally intubated Status: Acute Clinical Quality Measures DVT/VTE Risk/Contraindication: Risk Factor Score Per Nursin RFS Level Per Nursing on Admit: 4+=Very High JOANIE WAITE MD Sep 04, 2019 13:48
--- NOTE | 2019-09-04 14:05 | Occupational Ther Daily Note ---
OT Current Status-Daily Note Subjective Pt alert, lying in bed. Pt extubated late this morning. Pt's BP low, nrsg directed only in bed tasks. Pt agrees to therapy. Mental Status/Objective Patient Orientation: Person, Place, Time, Situation Attachments: IV, Knee Immobilizer, Oxygen (2L), SCD's, Telemetry ADL-Treatment Therapy Code Descriptions/Definitions Functional [place] Measure: 0=Not Assessed/NA 4=Minimal Assistance 1=Total Assistance 5=Supervision or Setup 2=Maximal Assistance 6=Modified [place] 3=Moderate Assistance 7=Complete IndependenceSCALE: Activities may be completed with or without assistive devices. 6-Xwfqbjkxgd-rcxccch completes the activity by him/herself with no assistance from a helper. 5-Set-up or Clean-up Assistance-helper sets up or cleans up; patient completes activity. [place] assists only prior to or following the activity. 4-Supervision or Touching Assistance-helper provides verbal cues and/or t ouching/steadying and/or contact guard assistance as patient completes activity. Assistance may be provided throughout the activity or intermittently. 3-Partial/Moderate Assistance-helper does LESS THAN HALF the effort. [place] lifts, holds or supports trunk or limbs, but provides less than half the effort. 2-Substantial/Maximal Assistance-helper does MORE THAN HALF the effort. [place] lifts or holds trunk or limbs and provides more than half the effort. 4-Qmkzmihpg-crmvmd does ALL the effort. Patient does none of the effort to complete the activity. Or, the assistance of 2 or more helpers is required for the patient to complete the activity. If activity was not attempted, code reason: 7-Patient Refused. 9-Not Applicable-not attempted and the patient did not perform the activity before the current illness, exacerbation or injury. 10-Not Attempted due to Environmental Limitations-(lack of equipment, weather restraints, etc.). 88-Not Attempted due to Medical Conditions or Safety Concerns. Other Treatment Pt just finished up with bathing per nrsg. Pt able to lift B UE to 90*, reach and grasp cup to bring to mouth. Pt fatigues easily. Pt lying in bed with call light/phone in reach. All needs met in room. OT Shelter Goals Spray Machine Operator Goals Time Frame: Sep 15, 2019 Eating (QC): 6 Oral Hygiene (QC): 6 Toileting Hygiene (QC): 6 Shower/Bathe Self (QC): 6 Upper Body Dressing (QC): 6 Lower Body Dressing (QC): 6 On/Off Footwear (QC): 6 Additional Goals: 1-Demonstrate ADL Tasks, 2-Verbalize Understanding, 3-ImproveStrength/Alexsandra 1=Demonstrate adherence to instructed precautions during ADL tasks. 2=Patient will verbalize/demonstrate understanding of assistive devices/modifications for ADL. 3=Patient will improve strength/tolerance for activity to enable patient to perform ADL's. OT Education/Plan Problem List/Assessment Assessment: Decreased Activ Tolerance, Decreased UE Strength Discharge Recommendations Plan/Recommendations: Continue POC Treatment Plan/Plan of Care Patient would benefit from OT for education, treatment and training to promote independence in ADL's, mobility, safety and/or upper extremity function for ADL's. Plan of Care: ADL Retraining, Functional Mobility Treatment Duration: Sep 15, 2019 Frequency: 5 times per week Estimated Hrs Per Day: .5 hour per day Agreement: Yes Rehab Potential: Good Time/GCodes Start Time: 13:50 Stop Time: 14:00 Total Time Billed (hr/min): 10 Billed Treatment Time 1 visit-FA 1 (10 min) CARMINE BELTRAN Sep 04, 2019 14:05
--- NOTE | 2019-09-04 15:06 | Progress Note - Cardiology ---
Cardiology SOAP Progress Note Subjective: Notes discomfort at surgical site No cp or palp or syncope No shortness of breath at rest Gen malaise and weakness No focal weakness Objective: I&O/Vital Signs 09/04/19 09/04/19 09/04/19 09/04/19 04:00 04:00 05:00 05:46 Pulse 73 70 Resp 15 17 B/P (MAP) 129/47 (74) 121/45 (70) Pulse Ox 95 95 O2 Delivery Mechanical Ventilator Mechanical Ventilator Mechanical Ventilator Mechanical Ventilator O2 Flow Rate 40.00 40.00 30.00 FiO2 40 09/04/19 09/04/19 09/04/19 09/04/19 06:00 06:04 06:17 06:27 Pulse 70 69 Resp 16 17 B/P (MAP) 93/36 (55) 98/40 134/56 Pulse Ox 95 95 O2 Delivery Mechanical Ventilator O2 Flow Rate 30.00 FiO2 30 09/04/19 09/04/19 09/04/19 09/04/19 07:00 07:00 08:00 08:00 Temp 35.8 Pulse 70 70 Resp 17 B/P (MAP) 114/46 (68) Pulse Ox 95 O2 Delivery Mechanical Ventilator Mechanical Ventilator O2 Flow Rate 30.00 FiO2 40 09/04/19 09/04/19 09/04/19 09/04/19 08:00 09:00 09:50 10:00 Pulse 68 70 76 71 Resp 18 25 26 11 B/P (MAP) 105/42 (63) 123/47 (72) 121/45 (70) Pulse Ox 95 96 96 94 O2 Delivery Mechanical Ventilator Mechanical Ventilator Mechanical Ventilator O2 Flow Rate 30.00 30.00 30.00 FiO2 30 09/04/19 09/04/19 09/04/19 09/04/19 11:00 12:00 12:00 12:41 Temp 36.8 Pulse 88 88 86 Resp 18 11 B/P (MAP) 114/41 (65) 119/49 (72) Pulse Ox 95 O2 Delivery Nasal Cannula Nasal Cannula O2 Flow Rate 4.00 4.00 09/04/19 09/04/19 09/04/19 09/04/19 13:00 13:33 14:00 15:00 Pulse 101 98 97 Resp 18 15 14 B/P (MAP) 175/50 (91) 138/44 (75) 147/93 (111) Pulse Ox 100 100 98 100 O2 Delivery Nasal Cannula Nasal Cannula Nasal Cannula Nasal Cannula O2 Flow Rate 4.00 4.00 4.00 4.00 09/04/19 00:00 Intake Total 110 ml Output Total 1975 ml Balance -1865 ml Weight (Pounds): 183 Weight (Ounces): 5.0 Weight (Calculated Kilograms): 83.449329 Constitutional: AAO x 3, well-developed, well-nourished Respiratory: chest expansion is symmetric, chest is bilaterally symmetric, other (diminished lower lobes bilat) Cardiovascular: regular rate-rhythm; No JVD; tachycardia, S1 and S2 Gastrointestional: soft, audible bowel sounds Extremities: normal range of motion, non-tender, normal inspection, other (Brace to left leg), no lower extremity edema bilateral Neurologic/Psychiatric: no motor/sensory deficits, alert, normal mood/affect, oriented x 3, other (moves extremities equally; we did not attempt any motion at surgical sites) Skin: normal color, warm/dry; No rash on exposed areas, No ulcerations on exposed areas Results/Procedures: Labs Laboratory Tests 09/03/19 15:42: Glucometer 199H 09/03/19 17:31: Glucometer 138H 09/04/19 02:45: White Blood Count 9.7, Red Blood Count 2.59L, Hemoglobin 7.5L, Hematocrit 24L, Mean Corpuscular Volume 94, Mean Corpuscular Hemoglobin 29, Mean Corpuscular Hemoglobin Concent 31L, Red Cell Distribution Width 15.3H, Platelet Count 301, Mean Platelet Volume 8.8, Neutrophils (%) (Auto) 71, Lymphocytes (%) (Auto) 19, Monocytes (%) (Auto) 9, Eosinophils (%) (Auto) 2, Basophils (%) (Auto) 0, Neutrophils # (Auto) 6.9, Lymphocytes # (Auto) 1.8, Monocytes # (Auto) 0.8, Eosinophils # (Auto) 0.2, Basophils # (Auto) 0.0, Blood Gas Puncture Site LT ARTLINE, Blood Gas Patient Temperature 36.8, Arterial Blood pH 7.42, Arterial Blood Partial Pressure CO2 42, Arterial Blood Partial Pressure O2 104H, Arterial Blood HCO3 27, Arterial Blood Total CO2 28.3, Arterial Blood Oxygen Saturation 98, Arterial Blood Base Excess 2.7H, Can Test POSITIVE, Blood Gas Ventilator Setting YES, Blood Gas Inspired Oxygen 40, Sodium Level 142, Potassium Level 3.5L, Chloride Level 107, Carbon Dioxide Level 24, Anion Gap 11, Blood Urea Nitrogen 7, Creatinine 0.63, Estimat Glomerular Filtration Rate > 60, BUN/Creatinine Ratio 11, Glucose Level 141H, Calcium Level 8.5, Phosphorus Level 3.4, Magnesium Level 1.8, B-Type Natriuretic Peptide 58.9, Triglycerides Level 296H 09/04/19 10:18: Blood Gas Puncture Site LEFT RADIAL, Blood Gas Patient Temperature 35.8, Ar terial Blood pH 7.53H, Arterial Blood Partial Pressure CO2 31L, Arterial Blood Partial Pressure O2 151H, Arterial Blood HCO3 27, Arterial Blood Total CO2 27.6, Arterial Blood Oxygen Saturation 100, Arterial Blood Base Excess 3.6H, Can Test POSITIVE, Blood Gas Ventilator Setting YES, Blood Gas Inspired Oxygen 30% 09/04/19 11:41: Glucometer 95 Microbiology 09/02/19 Blood Culture - Preliminary, Resulted No growth 09/02/19 Gram Stain - Final, Resulted 09/02/19 Body Fluid Culture - Preliminary, Resulted No growth 09/02/19 Gram Stain - Final, Complete 09/02/19 Sputum Culture - Final, Complete Usual upper respiratory kelsey YEAST A/P: Assessment: Ac resp failure (with transient hypoxia) currently on [facility] vent - planned extubation this morning Septic shock with hypotension requiring pressor support (hypotension now resolved) s/p L total knee arthroplasty on 08/22/19 and quadriceps tendon repair on 08/24/19 Severe, post-op anemia Intermittent sinus tach during this hospitalization Left bundle branch block, chronic History of cardiac catheterization in 2012: mild coronary artery disease; last MPI in March 2019 showing no significant ischemia or infarction, ejection fraction 78 percent. Echo 09/02/19 (Dr Willingham): LVEF 45-50%, no RWMA, mod TR, PASP 40-45 mmHg History of isolated PVCs and few brief runs of nonsustained ventricular tachycardia, she was seen by Dr. Marie and Dr. Lewis as an outpatient. Hyperlipidemia, treated with Lipitor History of mild carotid stenosis H/o tobacco use Plan: * Hypotension has resolved. Resume bb * Anemia - management per medical/surgical services * COVID status negative - changed enoxaparin to DVT prophylaxis as noted below * Monitor labs * Replace electrolytes AGGIE,ALI MD FACP FAC CCDS Sep 04, 2019 15:06
[2019-09-04] MEDS ORDERED: meTOproloL SUCCINATE 50 MG (TOPROL XL) TAB PO NR (15:15)
[2019-09-04] MEDS ORDERED: RT-ALBUTEROL INHALER HFA (VENTOLIN HFA) 8 GM IH PRN (17:15)
[2019-09-04] MEDS: IBUPROFEN 600 MG (MOTRIN) TAB PO PRN (20:00)
[2019-09-05] VITALS (17 sets, daily range): BP systolic 121–163; BP diastolic 70–90
[2019-09-05] MEDS: RT-ALBUTEROL INHALER HFA (VENTOLIN HFA) 8 GM IH SCH ×4 (02:22→21:05)
[2019-09-05 03:04] LABS: BASOPHILS % (AUTO) 0 % (0-10); EOSINOPHILS # (AUTO) 0.3 10^3/uL (0.0-0.3); EOSINOPHILS % (AUTO) 3 % (0-10); HEMATOCRIT 25 % (35-52); HEMOGLOBIN 7.9 G/DL (11.5-16.0); LYMPHOCYTES # (AUTO) 1.9 X 10^3 (1.0-4.0); LYMPHOCYTES % (AUTO) 21 % (12-44); MEAN CORPUSCULAR HEMOGLOBIN 29 PG (25-34); MEAN CORPUSCULAR HGB CONC 31 G/DL (32-36); MEAN CORPUSCULAR VOLUME 93 FL (80-99); MEAN PLATELET VOLUME 8.5 FL (7.4-10.4); MONOCYTES # (AUTO) 0.9 X 10^3 (0.0-1.0); MONOCYTES % (AUTO) 10 % (0-12); NEUTROPHILS # (AUTO) 5.7 X 10^3 (1.8-7.8); NEUTROPHILS % (AUTO) 65 % (42-75); PLATELET COUNT 368 10^3/uL (130-400); RED CELL DISTRIBUTION WIDTH 15.6 % (10.0-14.5); WHITE BLOOD COUNT 8.8 10^3/uL (4.3-11.0)
[2019-09-05 03:15] LABS: CHLORIDE 105 MMOL/L (98-107); POTASSIUM 3.5 MMOL/L (3.6-5.0); SODIUM 141 MMOL/L (135-145)
[2019-09-05] MEDS: MEROPENEM 500 MG/SWFI 10 ML IV PUSH IV SCH ×8 (03:16→20:17)
[2019-09-05 03:17] LABS: CALCIUM 8.8 MG/DL (8.5-10.1); GLUCOSE 102 MG/DL (70-105)
[2019-09-05 03:19] LABS: CARBON DIOXIDE 25 MMOL/L (21-32)
[2019-09-05 03:21] LABS: CREATININE SERUM 0.64 MG/DL (0.60-1.30); GFR ESTIMATED > 60; PHOSPHORUS 3.6 MG/DL (2.3-4.7)
[2019-09-05 03:22] LABS: BUN/CREATININE RATIO 17
[2019-09-05] MEDS: POTASSIUM CL 10MEQ/50ML IVPB 50 ML IV SCH ×3 (03:53→06:12)
[2019-09-05] MEDS: MAGNESIUM 1 GM/100 ML IVPB 100 ML IV SCH (03:53)
[2019-09-05] MEDS: KCL 20 MEQ TAB (K-DUR) PO SCH (03:54)
[2019-09-05] MEDS ORDERED: KCL 20 MEQ TAB (K-DUR) PO ONE (04:00)
--- NOTE | 2019-09-05 04:46 | Pulmonary Progress Note ---
Subjective Time Seen by a Provider: 04:45 Subjective/Events-last exam Pt is doing much better. Sepsis Event Evaluation Height, Weight, BMI Height: 5'4.00" Weight: 183lbs. 5.0oz. 83.335025dw; 35.43 BMI Method:Stated Focused Exam Lactate Level 09/02/19 14:45: Lactic Acid Level 3.35*H 09/02/19 17:20: Lactic Acid Level 0.81 Exam Exam Vital Signs Date Time Temp Pulse Resp B/P (MAP) Pulse Ox O2 Delivery O2 Flow Rate FiO2 09/05/19 04:00 94 Room Air 09/05/19 04:00 98 14 148/72 (97) 93 Nasal Cannula 2.00 09/05/19 03:58 36.5 09/05/19 03:08 103 13 151/70 (97) 96 Room Air 09/05/19 02:32 98 18 91 Room Air 09/05/19 02:22 98 Room Air 0.00 09/05/19 02:00 108 17 142/73 (96) 97 Nasal Cannula 2.00 09/05/19 01:00 104 09/05/19 01:00 104 36 136/71 (92) 98 Nasal Cannula 2.00 09/05/19 00:15 36.6 09/05/19 00:00 101 14 121/81 (94) 100 Nasal Cannula 2.00 09/05/19 00:00 95 Nasal Cannula 2.00 09/04/19 23:17 36.2 09/04/19 23:00 100 10 144/68 (93) 97 Nasal Cannula 2.00 09/04/19 22:00 105 22 130/65 (86) 94 Nasal Cannula 2.00 09/04/19 21:53 98 Nasal Cannula 0.50 09/04/19 21:00 113 26 130/72 (91) 96 Nasal Cannula 2.00 09/04/19 20:07 37.3 09/04/19 20:00 95 Nasal Cannula 2.00 09/04/19 20:00 112 14 134/69 (90) 99 Nasal Cannula 2.00 09/04/19 19:00 116 17 130/69 (89) 98 Nasal Cannula 2.00 09/04/19 19:00 116 09/04/19 18:09 100 Nasal Cannula 2.00 09/04/19 18:00 128 158/75 (102) 100 Nasal Cannula 4.00 09/04/19 17:00 111 19 151/76 (101) 100 Nasal Cannula 4.00 09/04/19 16:44 Nasal Cannula 4.00 09/04/19 16:40 100 Nasal Cannula 4.00 09/04/19 16:00 107 26 150/80 (103) 99 Nasal Cannula 4.00 09/04/19 16:00 37.3 09/04/19 15:00 97 14 147/93 (111) 100 Nasal Cannula 4.00 09/04/19 14:00 98 15 138/44 (75) 98 Nasal Cannula 4.00 09/04/19 13:33 100 Nasal Cannula 4.00 09/04/19 13:00 101 18 175/50 (91) 100 Nasal Cannula 4.00 09/04/19 12:41 86 09/04/19 12:00 Nasal Cannula 4.00 09/04/19 12:00 36.8 09/04/19 12:00 88 11 119/49 (72) Nasal Cannula 4.00 09/04/19 11:00 88 18 114/41 (65) 95 Nasal Cannula 4.00 09/04/19 10:00 71 11 121/45 (70) 94 Mechanical Ventilator 30.00 09/04/19 09:50 76 26 96 30 09/04/19 09:00 70 25 123/47 (72) 96 Mechanical Ventilator 30.00 09/04/19 08:00 68 18 105/42 (63) 95 Mechanical Ventilator 30.00 09/04/19 08:00 35.8 09/04/19 08:00 Mechanical Ventilator 40 09/04/19 07:00 70 09/04/19 07:00 70 17 114/46 (68) 95 Mechanical Ventilator 30.00 09/04/19 06:27 69 17 95 30 09/04/19 06:17 134/56 09/04/19 06:04 98/40 09/04/19 06:00 70 16 93/36 (55) 95 Mechanical Ventilator 30.00 09/04/19 05:46 Mechanical Ventilator 30.00 09/04/19 05:00 70 17 121/45 (70) 95 Mechanical Ventilator 40.00 I & O 09/05/19 07:00 Intake Total 960 ml Output Total 1600 ml Balance -640 ml Height & Weight Height: 5'4.00" Weight: 183lbs. 5.0oz. 83.875978ml; 35.43 BMI Method:Stated General Appearance: No Apparent Distress, WD/WN, Obese HEENT: PERRL/EOMI, Pharynx Normal Neck: Normal Inspection, Supple Respiratory: Lungs Clear, Normal Breath Sounds, No Respiratory Distress Cardiovascular: Regular Rate, Rhythm, No Edema, No Murmur Gastrointestinal: normal bowel sounds, soft, no organomegaly Extremity: Normal Inspection, Non Tender, No Pedal Edema Neurologic/Psychiatric: Alert, No Motor/Sensory Deficits, Normal Mood/Affect Skin: Normal Color, Warm/Dry Lymphatic: No Adenopathy Results Lab Laboratory Tests 09/04/19 02:45 09/05/19 02:55 Assessment/Plan Assessment/Plan Acute respiratory failure - Pa02/Fi02 =260 -Pt is doing well s/p extubation yesterday -COVID is neg -CTA is negative -RVP pending -Influ is neg - urine and strep Ag - Neg -MRSA swab is neg Sepsis -Renee cultures pending - Continue Merrem Anemia -Monitor - lovenox Aflutter s/p cardioversion/adenosin -Lovenox -Cardiology following s/p TKA and quadriceps repair Osteogenesis imperfecta Ortho consulted, appreciate recs PT/OT MAHENDRA BLAND DO Sep 05, 2019 04:46
[2019-09-05] MEDS: ONDANSETRON 4 MG/2 ML (SDV) Z0FRAN IV PRN ×3 (05:43→15:49)
[2019-09-05] MEDS ORDERED: POTASSIUM CL 10MEQ/50ML IVPB 100 ML IV ONE (05:49)
[2019-09-05] MEDS: ENOXAPARIN 40 MG/0.4 ML (LOVENOX) SYR SC SCH (06:11)
--- NOTE | 2019-09-05 07:30 | Diagnostic Imaging Report ---
EXAMINATION: Chest 1 view HISTORY: Sepsis. Altered mental status. Follow-up. COMPARISON: Chest radiograph on 09/04/2019. FINDINGS: There has been interval extubation and removal of the enteric tube. Stable right internal jugular central line with the tip overlying the low SVC. Lung volumes are improved. Prominent interstitial markings are seen in the lungs, similar to the prior exam. Improved aeration is seen in the lung bases. Stable cardiac silhouette. No large pleural effusion or pneumothorax. No acute osseous abnormalities. IMPRESSION: 1. Improved aeration in the lung bases with increased lung volumes. Continued prominent interstitial markings are seen in the lungs, which may represent infection or edema. 2. Interval extubation and removal of the enteric tube. Stable right internal jugular central line. Dictated by: Dictated on workstation # [id number]
[2019-09-05] MEDS: PANTOPRAZOLE 40 MG (PROTONIX) VIAL IV SCH (09:23)
[2019-09-05] MEDS: meTOproloL SUCCINATE 50 MG (TOPROL XL) TAB PO SCH (09:23)
[2019-09-05] MEDS: FAMOTIDINE 20 MG (PEPCID) TABLET PO SCH ×2 (09:26→20:17)
--- NOTE | 2019-09-05 10:08 | Progress Note - Cardiology ---
Cardiology SOAP Progress Note Subjective: Sitting up in bed. States she has some abd wall/muscle discomfort when coughing. No c/o CP or palpitations. Feels breathing is much better. C/O food from dietary being too salty making it difficult to eat at times. Objective: I&O/Vital Signs 09/06/19 09/06/19 09/07/19 09/07/19 20:35 20:43 00:00 01:00 Temp 36.4 Pulse 101 91 Resp 18 B/P (MAP) 120/60 (80) Pulse Ox 95 98 O2 Delivery Room Air Room Air Room Air 09/07/19 09/07/19 09/07/19 02:42 03:36 07:06 Temp 36.4 Pulse 90 92 Resp 18 B/P (MAP) 127/73 (91) Pulse Ox 97 97 O2 Delivery Room Air Room Air 09/07/19 00:00 Intake Total 1480 ml Output Total 1400 ml Balance 80 ml Weight (Pounds): 183 Weight (Ounces): 5.0 Weight (Calculated Kilograms): 83.316238 Constitutional: AAO x 3, well-developed, well-nourished Respiratory: chest expansion is symmetric, chest is bilaterally symmetric, other (good air entry) Cardiovascular: regular rate-rhythm; No JVD; S1 and S2 Gastrointestional: soft, audible bowel sounds Extremities: normal range of motion, non-tender, normal inspection, other (Brace to left leg), no lower extremity edema bilateral Neurologic/Psychiatric: no motor/sensory deficits, alert, normal mood/affect, oriented x 3, other (moves all extremities; brace in place to left leg) Skin: normal color, warm/dry; No rash on exposed areas, No ulcerations on exposed areas Results/Procedures: Labs Laboratory Tests 09/06/19 13:08: Glucometer 112H 09/06/19 18:19: Glucometer 129H 09/07/19 00:11: Glucometer 122H 09/07/19 06:06: White Blood Count 16.3H, Red Blood Count 2.98L, Hemoglobin 8.5L, Hematocrit 28L, Mean Corpuscular Volume 95, Mean Corpuscular Hemoglobin 29, Mean Corpuscular Hemoglobin Concent 30L, Red Cell Distribution Width 16.1H, Platelet Count 552H, Mean Platelet Volume 8.3, Neutrophils (%) (Auto) 75, Lymphocytes (%) (Auto) 15, Monocytes (%) (Auto) 8, Eosinophils (%) (Auto) 2, Basophils (%) (Auto) 0, Neutrophils # (Auto) 12.2H, Lymphocytes # (Auto) 2.4, Monocytes # (Auto) 1.2H, Eosinophils # (Auto) 0.4H, Basophils # (Auto) 0.0, Neutrophils % (Manual) 77, Lymphocytes % (Manual) 13, Monocytes % (Manual) 5, Eosinophils % (Manual) 3, Band Neutrophils 2, Polychromasia SLIGHT, Anisocytosis MODERATE, Sodium Level 140, Potassium Level 4.1, Chloride Level 104, Carbon Dioxide Level 27, Anion Gap 9, Blood Urea Nitrogen 10, Creatinine 0.59L, Estimat Glomerular Filtration Rate > 60, BUN/Creatinine Ratio 17, Glucose Level 103, Calcium Level 8.9, Phosphorus Level 3.0, Magnesium Level 2.1 Microbiology 09/02/19 Blood Culture - Preliminary, Resulted No growth 09/02/19 Gram Stain - Final, Complete 09/02/19 Body Fluid Culture - Final, Complete No growth 09/02/19 Gram Stain - Final, Complete 09/02/19 Sputum Culture - Final, Complete Usual upper respiratory kelsey YEAST Procedures NAME: [facility] REC#: [id number] PT STATUS: ADM IN : 1955 PHYSICIAN: CHRIS BRIGGS MD ADMIT DATE: 08/31/19/ICU Signed Date of Exam:09/05/19 CHEST 1 VIEW, AP/PA ONLY EXAMINATION: Chest 1 view HISTORY: Sepsis. Altered mental status. Follow-up. COMPARISON: Chest radiograph on 09/04/2019. FINDINGS: There has been interval extubation and removal of the enteric tube. Stable right internal jugular central line with the tip overlying the low SVC. Lung volumes are improved. Prominent interstitial markings are seen in the lungs, similar to the prior exam. Improved aeration is seen in the lung bases. Stable cardiac silhouette. No large pleural effusion or pneumothorax. No acute osseous abnormalities. IMPRESSION: 1. Improved aeration in the lung bases with increased lung volumes. Continued prominent interstitial markings are seen in the lungs, which may represent infection or edema. 2. Interval extubation and removal of the enteric tube. Stable right internal jugular central line. Dictated by: Dictated on workstation # [id number] Dict: 09/05/19 0724 Trans: 09/05/19 0735 [id number] Interpreted by: DARNELL ELLISON DO Electronically signed by: DARNELL ELLISON DO 09/05/19 0735 A/P: Assessment: Ac resp failure (with transient hypoxia) - extubated on 09-04-2019 Septic shock with hypotension requiring pressor support (hypotension now resolved) s/p L total knee arthroplasty on 08/22/19 and quadriceps tendon repair on 08/24/19 Severe, post-op anemia Intermittent sinus tach during this hospitalization Left bundle branch block, chronic History of cardiac catheterization in 2012: mild coronary artery disease; last MPI in March 2019 showing no significant ischemia or infarction, ejection fraction 78 percent. Echo 09/02/19 (Dr Willingham): LVEF 45-50%, no RWMA, mod TR, PASP 40-45 mmHg History of isolated PVCs and few brief runs of nonsustained ventricular tachycardia, she was seen by Dr. Marie and Dr. Lewis as an outpatient. Hyperlipidemia, treated with Lipitor History of mild carotid stenosis H/o tobacco use Plan: * Continue BB adjust as indicated * Anemia - management per medical/surgical services * COVID status negative - continue enoxaparin at DVT prophylaxis dosing * Monitor labs * Replace electrolytes as indicated * Advised splinting with a pillow when coughing to relieve muscle discomfort and facilitate coughing and deep breathing * Reporting dietary food too salty, she states she is used to a low sodium diet - will change diet ANITA TREVIÑO Sep 05, 2019 10:08
--- NOTE | 2019-09-05 10:39 | NUR ---
REPORT GIVEN TO TREVOR ARGUETA. PT TRANSPORTED VIA BED TO ROOM 418 AT THIS TIME WITH BELONGINGS
--- NOTE | 2019-09-05 11:00 | NUR ---
TRANSFERRED FROM ICU TO ROOM 418. ALERT AND COOPERATIVE. SKIN MOIST AND WARM. COLOR PALE. RESP. REGULAR. LEFT LEG IMMOBILIZER ON. POLAR PACK TO LEFT KNEE. SALINE LOCK IN PLACE TO LEFT AC. SALINE LOCK IN PLACE TO RIGHT AC. TELEMETRY ON. BENNETT CATH WITH CLEAR YELLOW URINE. LEFT INNER HEEL WITH BLISTER-LIKE AREA APPROXIMATELY 1.5 CM, SKIN PREP AND ALLEVYN APPLIED. TOP OF RIGHT ANKLE WITH DARKENED AREA APPROX 0.5CM X 4 CM. PULE PRESENT NIVIA. 1 + EDEMA TO LEFT LEG. IMMOBILE ON. ENCOURAGED IS Q2H AND DEEP BREATHING. LOOSE COUGH AT TIMES.
--- NOTE | 2019-09-05 11:32 | Progress Note ---
Standard Progress Note Progress Notes/Assess & Plan Date Seen by a Provider: Sep 05, 2019 Time Seen by a Provider: 10:47 Progress/Assessment & Plan feeling much better today. Denies knee pain Vital Signs Date Time Temp Pulse Resp B/P (MAP) Pulse Ox O2 Delivery O2 Flow Rate FiO2 09/01/19 06:00 84 20 109/68 (82) 99 Nasal Cannula 2.00 09/01/19 05:00 83 18 104/63 (77) 100 Nasal Cannula 2.00 09/01/19 04:00 86 18 75/55 (62) 98 Nasal Cannula 2.00 09/01/19 04:00 37.2 09/01/19 04:00 94 Nasal Cannula 2.00 09/01/19 03:00 93 20 84/44 (57) 100 Nasal Cannula 2.00 09/01/19 02:00 100 18 95/56 (69) 91 Nasal Cannula 2.00 09/01/19 01:00 106 09/01/19 01:00 106 16 98/59 (72) 94 Nasal Cannula 2.00 09/01/19 00:49 36.7 Nasal Cannula 2.00 09/01/19 00:00 94 Nasal Cannula 2.00 09/01/19 00:00 115 18 100/57 (71) 96 Room Air 08/31/19 23:00 117 23 129/60 (83) 92 Room Air 08/31/19 23:00 37.7 08/31/19 22:30 120 22 125/67 (86) 94 Room Air 08/31/19 22:15 120 23 123/63 (83) 92 Room Air 08/31/19 22:00 121 16 124/64 (84) 92 Room Air 08/31/19 21:45 147 17 128/66 (86) 96 Room Air 08/31/19 21:30 39.0 08/31/19 21:30 148 I & O 09/01/19 07:00 Intake Total 670 ml Output Total 850 ml Balance -180 ml Laboratory Tests Test 08/31/19 21:55 08/31/19 23:10 09/01/19 01:30 Range/Units Blood Gas Puncture Site LEFT RADIAL Blood Gas Patient Temperature 39.0 Arterial Blood pH 7.47 H 7.37-7.43 Arterial Blood Partial Pressure CO2 31 L 35-45 MMHG Arterial Blood Partial Pressure O2 83 79-93 MMHG Arterial Blood HCO3 21 L 23-27 MMOL/L Arterial Blood Total CO2 22.1 21.0-31.0 MMOL/L Arterial Blood Oxygen Saturation 96 94-100 % Arterial Blood Base Excess -1.6 -2.5-2.5 MMOL/L Can Test POSITIVE Blood Gas Ventilator Setting NO Blood Gas Inspired Oxygen RA Lactic Acid Level 2.77 *H 1.47 0.50-2.00 MMOL/L White Blood Count 12.6 H 4.3-11.0 10^3/uL Red Blood Count 2.87 L 4.35-5.85 10^6/uL Hemoglobin 8.3 L 11.5-16.0 G/DL Hematocrit 27 L 35-52 % Mean Corpuscular Volume 92 80-99 FL Mean Corpuscular Hemoglobin 29 25-34 PG Mean Corpuscular Hemoglobin Concent 31 L 32-36 G/DL Red Cell Distribution Width 15.9 H 10.0-14.5 % Platelet Count 302 130-400 10^3/uL Mean Platelet Volume 8.5 7.4-10.4 FL Neutrophils (%) (Auto) 96 H 42-75 % Lymphocytes (%) (Auto) 3 L 12-44 % Monocytes (%) (Auto) 1 0-12 % Eosinophils (%) (Auto) 0 0-10 % Basophils (%) (Auto) 0 0-10 % Neutrophils # (Auto) 12.1 H 1.8-7.8 X 10^3 Lymphocytes # (Auto) 0.4 L 1.0-4.0 X 10^3 Monocytes # (Auto) 0.1 0.0-1.0 X 10^3 Eosinophils # (Auto) 0.0 0.0-0.3 10^3/uL Basophils # (Auto) 0.0 0.0-0.1 10^3/uL Sodium Level 134 L 135-145 MMOL/L Potassium Level 3.1 L 3.6-5.0 MMOL/L Chloride Level 101 98-107 MMOL/L Carbon Dioxide Level 20 L 21-32 MMOL/L Anion Gap 13 5-14 MMOL/L Blood Urea Nitrogen 14 7-18 MG/DL Creatinine 0.96 0.60-1.30 MG/DL Estimat Glomerular Filtration Rate 59 BUN/Creatinine Ratio 15 Glucose Level 108 H 70-105 MG/DL Calcium Level 8.7 8.5-10.1 MG/DL Phosphorus Level 2.2 L 2.3-4.7 MG/DL Magnesium Level 1.8 1.6-2.4 MG/DL L knee incision clean and dry without erythema or warmth. echymosis present. no calf tenderness. Neg Shawn's s/p L TKA with subsequent quad rupture and repair i do not believe the knee is the source of the patient's decompensation. Ok to continue PT from my standpoint Final Diagnosis no complaints re knee Incision clean and dry. No effusion. No calf tenderness. cultures negative s/p LTKA with quad repair continue PT Focused Exam Lactate Level 09/02/19 14:45: Lactic Acid Level 3.35*H 09/02/19 17:20: Lactic Acid Level 0.81 REFUGIO MANZANARES MD Sep 05, 2019 11:32
--- NOTE | 2019-09-05 11:39 | Occupational Ther Daily Note ---
OT Current Status-Daily Note Subjective Pt alert, lying in bed. Pt agrees to therapy. Pt states that she has been nauseous today and feels clammy. Mental Status/Objective Patient Orientation: Person, Place, Time, Situation Attachments: Brooks Catheter, IV, Telemetry ADL-Treatment Therapy Code Descriptions/Definitions Functional [place] Measure: 0=Not Assessed/NA 4=Minimal Assistance 1=Total Assistance 5=Supervision or Setup 2=Maximal Assistance 6=Modified [place] 3=Moderate Assistance 7=Complete IndependenceSCALE: Activities may be completed with or without assistive devices. 1-Oykxvpcjyx-smtobul completes the activity by him/herself with no assistance from a helper. 5-Set-up or Clean-up Assistance-helper sets up or cleans up; patient completes activity. [place] assists only prior to or following the activity. 4-Supervision or Touching Assistance-helper provides verbal cues and/or touching/steadying and/or contact guard assistance as patient completes activity. Assistance may be provided throughout the activity or intermittently. 3-Partial/Moderate Assistance-helper does LESS THAN HALF the effort. [place] lifts, holds or supports trunk or limbs, but provides less than half the effort. 2-Substantial/Maximal Assistance-helper does MORE THAN HALF the effort. [place] lifts or holds trunk or limbs and provides more than half the effort. 5-Chxxhpggl-thktgz does ALL the effort. Patient does none of the effort to complete the activity. Or, the assistance of 2 or more helpers is required for the patient to complete the activity. If activity was not attempted, code reason: 7-Patient Refused. 9-Not Applicable-not attempted and the patient did not perform the activity before the current illness, exacerbation or injury. 10-Not Attempted due to Environmental Limitations-(lack of equipment, weather restraints, etc.). 88-Not Attempted due to Medical Conditions or Safety Concerns. Other Treatment Low activity tolerance at this time. Introducing minimal resistance to no resistance exercises for B UE. Therapy sponges given to pt then educated on 3 exercises to complete to increase strength and decrease swelling in hands. Pt completed 1 set 10 reps each slowly and appeared to fatigue with exertion. Horizontal shldr abd with light resistance theraband, completing with one UE at a time due to low activity tolerance, 1 set 10 reps. Pt required multiple recovery breaks throughout session. Skilled instruction and monitoring completed during exercises. After session, pt lying in bed with call light/phone in reach. All needs met in room. OT Inspector Publications Goals Skilled Nursing Goals Time Frame: Sep 15, 2019 Eating (QC): 6 Oral Hygiene (QC): 6 Toileting Hygiene (QC): 6 Shower/Bathe Self (QC): 6 Upper Body Dressing (QC): 6 Lower Body Dressing (QC): 6 On/Off Footwear (QC): 6 Additional Goals: 1-Demonstrate ADL Tasks, 2-Verbalize Understanding, 3- ImproveStrength/Alexsandra 1=Demonstrate adherence to instructed precautions during ADL tasks. 2=Patient will verbalize/demonstrate understanding of assistive devices/modifications for ADL. 3=Patient will improve strength/tolerance for activity to enable patient to perform ADL's. OT Education/Plan Problem List/Assessment Assessment: Decreased Activ Tolerance, Decreased UE Strength, Impaired Self- Care Skills, Restricted Funct UE ROM Discharge Recommendations Plan/Recommendations: Continue POC Treatment Plan/Plan of Care Patient would benefit from OT for education, treatment and training to promote independence in ADL's, mobility, safety and/or upper extremity function for ADL's. Plan of Care: ADL Retraining, Functional Mobility Treatment Duration: Sep 15, 2019 Frequency: 5 times per week Estimated Hrs Per Day: .5 hour per day Agreement: Yes Rehab Potential: Good Time/GCodes Start Time: 11:15 Stop Time: 11:38 Total Time Billed (hr/min): 23 Billed Treatment Time 1 visit-EX 2 (23 min) CARMINE BELTRAN Sep 05, 2019 11:39
[2019-09-05] MEDS ORDERED: ONDANSETRON 4 MG (ZOFRAN) ORAL DISSOLVE TAB PO PRN (13:30)
[2019-09-05] MEDS ORDERED: PROMETHAZINE INJ 25 MG/ML (PHENERGAN) AMP IVP PRN (13:30)
[2019-09-05] MEDS ORDERED: BISACODYL 10 MG SUPP (DULCOLAX) PR PRN (13:30)
--- NOTE | 2019-09-05 13:38 | Progress Note - Hospitalist ---
Subjective HPI/CC On Admission Date Seen by Provider: Sep 05, 2019 Time Seen by Provider: 09:10 Pt is a 64yoCF with a PMH of osteogenesis imperfecta who underwent TKA and quadriceps rupture repair last week. She was admitted to rehab following these surgeries but developed hypotension, fever, and tachycardia overnight and was transferred to the ICU. There was concern for sepsis and CXR and UA were done and were normal. Dr Gann and I examined her knee which does not appear to be infected and is healing well. CTA was done to rule out PE and was negative. It did not show any ground glasss opacities either. She does not have a cough and is on room air. This morning she states she is feeling better but still mentally foggy. No other complaints or concerns. Subjective/Events-last exam She is feeling nauseous. She reports some nausea and vomiting last night. She denies any abdominal pain. She is constipated. She denies any fevers or chills. She denies any shortness of breath. She has been using her incentive spirometer. Focused Exam Lactate Level 09/02/19 14:45: Lactic Acid Level 3.35*H 09/02/19 17:20: Lactic Acid Level 0.81 Objective Exam Vital Signs Vital Signs Date Time Temp Pulse Resp B/P (MAP) Pulse Ox O2 Delivery O2 Flow Rate FiO2 09/05/19 12:00 36.1 97 16 146/72 (96) 98 Room Air 09/05/19 04:00 09/04/19 09:50 30 Capillary Refill : General Appearance: Anxious, Mild Distress, Obese Respiratory: Lungs Clear, Normal Breath Sounds, No Respiratory Distress Cardiovascular: Regular Rate, Rhythm, No Edema, No Murmur Gastrointestinal: Normal Bowel Sounds, Non Tender, Soft Extremity: Normal Inspection, Non Tender, No Pedal Edema Neurologic/Psychiatric: Alert, Oriented x3, No Motor/Sensory Deficits, Normal Mood/Affect Skin: Normal Color, Warm/Dry Results/Procedures Lab Laboratory Tests 09/05/19 02:55 Patient resulted labs reviewed. Imaging: Reviewed Imaging Report Assessment/Plan Assessment and Plan Assess & Plan/Chief Complaint Multifocal pneumonia Acute respiratory failure with hypoxia Pulmonology consulted, appreciate assistance Chest x-ray with bilateral infiltrates Extubated yesterday 09/03 COVID negative Continue Merrem for pneumonia Transfer to fourth floor Nausea and vomiting Constipation Continue Zofran Add Phenergan Soapsuds enema Add docusate and senna MiraLAX as needed s/p TKA and quadriceps repair Osteogenesis imperfecta Ortho consulted, appreciate recs PT/OT DVT prophylaxis: Lovenox Lactic acidosis, resolved Endotracheally intubated, resolved Severe sepsis, resolved Diagnosis/Problems Diagnosis/Problems (1) Severe sepsis Status: Resolved Resolution Date/Time: 09/05/19 @ 13:37 (2) Lactic acidosis Status: Resolved Resolution Date/Time: 09/05/19 @ 13:37 (3) Multifocal pneumonia Status: Acute (4) Quadriceps tendon rupture Status: Acute Qualifiers: Encounter type: subsequent encounter (5) Osteoarthritis of left knee Status: Chronic Qualifiers: Osteoarthritis type: primary Qualified Codes: M17.12 - Unilateral primary osteoarthritis, left knee (6) Acute respiratory failure with hypoxia Status: Acute (7) Endotracheally intubated Status: Resolved Resolution Date/Time: 09/05/19 @ 13:37 Clinical Quality Measures DVT/VTE Risk/Contraindication: Risk Factor Score Per Nursin RFS Level Per Nursing on Admit: 4+=Very High JOANIE WAITE MD Sep 05, 2019 13:38
--- NOTE | 2019-09-05 13:40 | Progress Note - Cardiology ---
Cardiology SOAP Progress Note Subjective: No cp or palp or syncope or shortness of breath No focal weakness Intermittent nausea. No vomiting or diarrhea Objective: I&O/Vital Signs 09/05/19 09/05/19 09/05/19 09/05/19 02:00 02:22 02:32 03:08 Pulse 108 98 103 Resp 17 18 13 B/P (MAP) 142/73 (96) 151/70 (97) Pulse Ox 97 98 91 96 O2 Delivery Nasal Cannula Room Air Room Air Room Air O2 Flow Rate 2.00 0.00 09/05/19 09/05/19 09/05/19 09/05/19 03:58 04:00 04:00 05:00 Temp 36.5 Pulse 98 93 Resp 14 8 B/P (MAP) 148/72 (97) 142/73 (96) Pulse Ox 93 94 94 O2 Delivery Room Air Room Air Room Air O2 Flow Rate 09/05/19 09/05/19 09/05/19 09/05/19 06:00 06:35 06:37 06:38 Temp 36.5 Pulse 93 94 90 Resp 11 B/P (MAP) 151/74 (99) Pulse Ox 98 98 100 O2 Delivery Room Air Room Air 09/05/19 09/05/19 09/05/19 09/05/19 07:00 07:26 08:00 08:12 Temp 36.4 Pulse 96 92 Resp 12 14 B/P (MAP) 151/74 (99) 146/74 (98) Pulse Ox 92 96 O2 Delivery Room Air Room Air Room Air 09/05/19 09/05/19 09/05/19 09/05/19 09:00 10:00 10:42 12:00 Temp 36.1 36.1 Pulse 98 101 97 97 Resp 12 21 16 16 B/P (MAP) 150/73 (98) 163/78 (106) 146/72 (96) 146/72 (96) Pulse Ox 96 100 98 98 O2 Delivery Room Air Room Air Room Air Room Air 09/05/19 00:00 Intake Total 810 ml Output Total 950 ml Balance -140 ml Weight (Pounds): 183 Weight (Ounces): 5.0 Weight (Calculated Kilograms): 83.188597 Constitutional: AAO x 3, well-developed, well-nourished Respiratory: chest expansion is symmetric, chest is bilaterally symmetric, other (good air entry) Cardiovascular: regular rate-rhythm; No JVD; S1 and S2 Gastrointestional: soft, audible bowel sounds Extremities: normal range of motion, non-tender, normal inspection, other (Brace to left leg), no lower extremity edema bilateral Neurologic/Psychiatric: no motor/sensory deficits, alert, normal mood/affect, oriented x 3, other (moves all extremities; brace in place to left leg) Skin: normal color, warm/dry; No rash on exposed areas, No ulcerations on exposed areas Results/Procedures: Labs Laboratory Tests 09/04/19 17:42: Glucometer 87 09/04/19 23:50: Glucometer 109 09/05/19 02:55: White Blood Count 8.8, Red Blood Count 2.71L, Hemoglobin 7.9L, Hematocrit 25L, Mean Corpuscular Volume 93, Mean Corpuscular Hemoglobin 29, Mean Corpuscular Hemoglobin Concent 31L, Red Cell Distribution Width 15.6H, Platelet Count 368, Mean Platelet Volume 8.5, Neutrophils (%) (Auto) 65, Lymphocytes (%) (Auto) 21, Monocytes (%) (Auto) 10, Eosinophils (%) (Auto) 3, Basophils (%) (Auto) 0, Neutrophils # (Auto) 5.7, Lymphocytes # (Auto) 1.9, Monocytes # (Auto) 0.9, Eosinophils # (Auto) 0.3, Basophils # (Auto) 0.0, Sodium Level 141, Potassium Level 3.5L, Chloride Level 105, Carbon Dioxide Level 25, Anion Gap 11, Blood Urea Nitrogen 11, Creatinine 0.64, Estimat Glomerular Filtration Rate > 60, BUN/Creatinine Ratio 17, Glucose Level 102, Calcium Level 8.8, Phosphorus Level 3.6, Magnesium Level 2.0 Microbiology 09/02/19 Blood Culture - Preliminary, Resulted No growth 09/02/19 Gram Stain - Final, Resulted 09/02/19 Body Fluid Culture - Preliminary, Resulted No growth 09/02/19 Gram Stain - Final, Complete 09/02/19 Sputum Culture - Final, Complete Usual upper respiratory kelsey YEAST Laboratory Tests 09/04/19 02:45 09/05/19 02:55 A/P: Assessment: Ac resp failure (with transient hypoxia) currently on [facility] vent - planned extubation this morning Septic shock with hypotension requiring pressor support (hypotension now resolved) s/p L total knee arthroplasty on 08/22/19 and quadriceps tendon repair on 08/24/19 Severe, post-op anemia Intermittent sinus tach during this hospitalization Left bundle branch block, chronic History of cardiac catheterization in 2013: mild coronary artery disease; last MPI in March 2019 showing no significant ischemia or infarction, ejection fraction 78 percent. Echo 09/02/19 (Dr Willingham): LVEF 45-50%, no RWMA, mod TR, PASP 40-45 mmHg History of isolated PVCs and few brief runs of nonsustained ventricular tachycardia, she was seen by Dr. Marie and Dr. Lewis as an outpatient. Hyperlipidemia, treated with Lipitor History of mild carotid stenosis H/o tobacco use Plan: * Continue BB adjust as indicated * Anemia - management per medical/surgical services * COVID status negative - continue enoxaparin at DVT prophylaxis dosing * Monitor labs * Replace electrolytes as indicated * Advised splinting with a pillow when coughing to relieve muscle discomfort and facilitate coughing and deep breathing * Reporting dietary food too salty, she states she is used to a low sodium diet - will change diet * I discussed her CV issues with her and answered questions JUANJO MARCIAL MD FACP FAC CCDS Sep 05, 2019 13:40
--- NOTE | 2019-09-05 14:01 | NUR ---
"RD ASSESSMENT PMHx: hypercholesterolemia; HTN; GERD; s/p L TKA PT INTERACTION: Pt was awake and pleasant during nutrition follow-up. Pt states she has been eating pretty poorly since last assessment. Note avg PO intake 38% x2meal, per chart review. Pt states some recent issues with nausea, vomiting, and constipation. Note last BM was 6/7 and pt currently on bowel regimen of miralax PRN, per chart review. ABNORMAL NUTRITION-RELATED LAB VALUES LOW: K 3.5 HIGH: Est. kcal needs: 2599-6404 kcal | 15-18 kcal/kg Est. Pro needs: 78-97 g Pro | 0.8-1.0 g Pro/kg PES STATEMENT: Inadequate oral intake (NI-2.1) related to loss of appetite | nausea | vomiting | constipation as evidenced by pt interview | avg PO intake 38% x2meal INTERVENTION: Continue with current diet order of Regular diet. Pt would likely benefit from nutrition supplementation, but stated she was afraid of throwing up again and rupturing wound on her neck. Encouraged pt to eat when able. Will continue to follow and reassess as pt needs, intake, and status change. MONITOR/EVALUATE: PO Intake; Plan of Care; Hydration Status; Weight Status; Lab Values Asif Cosme, MS, RD, LD"
--- NOTE | 2019-09-05 14:30 | NUR ---
GAVE PT. DULCOLAX SUPP. NADIA. WELL . UP TO BSC , HAD SMALL AMT. SOFT BROWN FORMED BM.
--- NOTE | 2019-09-05 14:45 | NUR ---
LF=[id number] WHEN UP WITH PT.
--- NOTE | 2019-09-05 15:05 | Cardiology Progress Note ---
Cardiology SOAP Progress Note Subjective: No cardiac complaints. Gradually improving. Objective: I&O/Vital Signs 09/05/19 09/05/19 09/05/19 09/05/19 03:08 03:58 04:00 04:00 Temp 36.5 Pulse 103 98 Resp 13 14 B/P (MAP) 151/70 (97) 148/72 (97) Pulse Ox 96 93 94 O2 Delivery Room Air Room Air Room Air O2 Flow Rate 09/05/19 09/05/19 09/05/19 09/05/19 05:00 06:00 06:35 06:37 Temp 36.5 Pulse 93 93 94 90 Resp 8 11 B/P (MAP) 142/73 (96) 151/74 (99) Pulse Ox 94 98 98 O2 Delivery Room Air Room Air 09/05/19 09/05/19 09/05/19 09/05/19 06:38 07:00 07:26 08:00 Temp 36.4 Pulse 96 92 Resp 12 14 B/P (MAP) 151/74 (99) 146/74 (98) Pulse Ox 100 92 O2 Delivery Room Air Room Air Room Air 09/05/19 09/05/19 09/05/19 09/05/19 08:12 09:00 10:00 10:42 Temp 36.1 Pulse 98 101 97 Resp 12 21 16 B/P (MAP) 150/73 (98) 163/78 (106) 146/72 (96) Pulse Ox 96 96 100 98 O2 Delivery Room Air Room Air Room Air Room Air 09/05/19 09/05/19 12:00 12:43 Temp 36.1 Pulse 97 97 Resp 16 B/P (MAP) 146/72 (96) Pulse Ox 98 O2 Delivery Room Air 09/05/19 00:00 Intake Total 810 ml Output Total 950 ml Balance -140 ml Weight (Pounds): 183 Weight (Ounces): 5.0 Weight (Calculated Kilograms): 83.768346 Constitutional: AAO x 3, well-developed, well-nourished Respiratory: chest expansion is symmetric, chest is bilaterally symmetric, other (good air entry) Cardiovascular: regular rate-rhythm; No JVD; S1 and S2 Gastrointestional: soft, audible bowel sounds Extremities: normal range of motion, non-tender, normal inspection, other (Brace to left leg), no lower extremity edema bilateral Neurologic/Psychiatric: no motor/sensory deficits, alert, normal mood/affect, oriented x 3, other (moves all extremities; brace in place to left leg) Skin: normal color, warm/dry; No rash on exposed areas, No ulcerations on exposed areas Results/Procedures: Labs Laboratory Tests 09/04/19 17:42: Glucometer 87 09/04/19 23:50: Glucometer 109 09/05/19 02:55: White Blood Count 8.8, Red Blood Count 2.71L, Hemoglobin 7.9L, Hematocrit 25L, Mean Corpuscular Volume 93, Mean Corpuscular Hemoglobin 29, Mean Corpuscular Hemoglobin Concent 31L, Red Cell Distribution Width 15.6H, Platelet Count 368, Mean Platelet Volume 8.5, Neutrophils (%) (Auto) 65, Lymphocytes (%) (Auto) 21, Monocytes (%) (Auto) 10, Eosinophils (%) (Auto) 3, Basophils (%) (Auto) 0, Neutrophils # (Auto) 5.7, Lymphocytes # (Auto) 1.9, Monocytes # (Auto) 0.9, Eosinophils # (Auto) 0.3, Basophils # (Auto) 0.0, Sodium Level 141, Potassium Level 3.5L, Chloride Level 105, Carbon Dioxide Level 25, Anion Gap 11, Blood Urea Nitrogen 11, Creatinine 0.64, Estimat Glomerular Filtration Rate > 60, BUN/Creatinine Ratio 17, Glucose Level 102, Calcium Level 8.8, Phosphorus Level 3.6, Magnesium Level 2.0 09/05/19 13:30: Glucometer 98 Microbiology 09/02/19 Blood Culture - Preliminary, Resulted No growth 09/02/19 Gram Stain - Final, Complete 09/02/19 Body Fluid Culture - Final, Complete No growth 09/02/19 Gram Stain - Final, Complete 09/02/19 Sputum Culture - Final, Complete Usual upper respiratory kelsey YEAST A/P: Assessment/Dx: Sepsis, Acute Respiratory failure, Mild CAD, History of PVCs, Nonsustained ventricular tachycardia Plan: No acute cardiac electrophysiology concerns. Patient has history of PVCs and nonsustained ventricular tachycardia with mild CAD and normal LV function. Therefore will continue beta blockers when appropriate with Dr. Reaves. No acute arrhythmias during this hospitalization. Sinus tachycardia due to significant systemic illness. Keep potassium over 4 and magnesium over 2. Defer treatment of sepsis and acute respiratory failure to the primary team. Thank you for your consultation. Please call me if you have any questions. Rafy Lewis MD, FACP, FACC, FSCAI, FHRS, CCDS Interventional Cardiology Cardiac Electrophysiology Vascular Medicine and Endovascular Interventions Dany LEWIS MD Sep 05, 2019 15:05
[2019-09-05] MEDS ORDERED: MEROPENEM 500 MG VIAL (MERREM) IV ONE ×2 (15:31→19:56)
[2019-09-05] MEDS ORDERED: WATER (STERILE) FOR INJECTION 10 ML ONE ×2 (15:31→19:56)
--- NOTE | 2019-09-05 15:35 | Physical Therapy Daily Note ---
PT Daily Note-Current Subjective Agrees to PT. Reports she wants to sit up in the chair. Reports she feels very weak. Mental Status Patient Orientation: Person, Place, Time, Situation Transfers SCALE: Activities may be completed with or without assistive devices. 2-Djacslnbeg-vedznbi completes the activity by him/herself with no assistance from a helper. 5-Set-up or Clean-up Assistance-helper sets up or cleans up; patient completes activity. [place] assists only prior to or following the activity. 4-Supervision or Touching Assistance-helper provides verbal cues and/or touching/steadying and/or contact guard assistance as patient completes activity. Assistance may be provided throughout the activity or intermittently. 3-Partial/Moderate Assistance-helper does LESS THAN HALF the effort. [place] lifts, holds or supports trunk or limbs, but provides less than half the effort. 2-Substantial/Maximal Assistance-helper does MORE THAN HALF the effort. [place] lifts or holds trunk or limbs and provides more than half the effort. 0-Nqpkerbcl-xvnglf does ALL the effort. Patient does none of the effort to complete the activity. Or, the assistance of 2 or more helpers is required for the patient to complete the activity. If activity was not attempted, code reason: 7-Patient Refused. 9-Not Applicable-not attempted and the patient did not perform the activity before the current illness, exacerbation or injury. 10-Not Attempted due to Environmental Limitations-(lack of equipment, weather restraints, etc.). 88-Not Attempted due to Medical Conditions or Safety Concerns. Sit to Stand (QC): 3 (mod assist to come to a stand with skilled cues for sequencing and safety. ) Chair/Lko-or-Fguey Xfer(QC): 2 (SPT commode to chair with max assist to stay up right ad to turn to sit. Skilled cues for sequencing and task completion. ) Pt up in recliner post treatment with legs elevated and left heel pressure relief. IROM brace in situ throughout treatment. Weight Bearing Right Lower Extremity: Right Weight Bearing/Tolerated Left Lower Extremity: Left Weight Bearing/Tolerated Assessment Reassess complete and will continue with POC and goals established at evaluation. Pt has transferred from ICU to med/surgical. She presents with gross functional weakness, requiring heavy assist for all functional mobility. She is unsafe to attempt ambulation at this date and had difficulty performing a transfer which required weight shifting. She will benefit form continued skilled therapy for functional strength training and progression of mobility. She will likely require extended rehab and recommend ARU once she is medically stable. PT Nursing Home Goals Assessment Nurse Goals PT Assessment Nurse Goals Time Frame: Sep 15, 2019 Roll Left & Right (QC): 6 Sit to Lying (QC): 6 Lying-Sitting on Side/Bed(QC): 6 Sit to Stand (QC): 6 Chair/Nzc-vp-Wfwcj Xfer(QC): 6 Toilet Transfer (QC): 6 Car Transfer (QC): 6 Does the Patient Walk: No and Walking Goal IS indicated Walk 10 feet (QC): 6 Walk 50ft with 2 Turns (QC): 6 Walk 150 ft (QC): 6 Walking 10ft on Uneven Surface: 6 1 Step (curb) (QC): 6 PT Plan Problem List Problem List: Activity Tolerance, Functional Strength, Safety, Balance, Gait, Transfer, Bed Mobility Treatment/Plan Treatment Plan: Continue Plan of Care Treatment Plan: Bed Mobility, Education, Functional Activity Alexsandra, Functional Strength, Gait, Safety, Therapeutic Exercise, Transfers Treatment Duration: Sep 15, 2019 Frequency: 6 times per week Estimated Hrs Per Day: .25 hour per day Patient and/or Family Agrees t: Yes Safety Risks/Education Patient Education: Transfer Techniques, Safety Issues Teaching Recipient: Patient Teaching Methods: Demonstration, Discussion Response to Teaching: Reinforcement Needed Discharge Recommendations Therapy Discharge Recommendati: Post Acute PT (recommend ARU) Time/GCodes Time In: 1500 Time Out: 1525 Total Billed Treatment Time: 25 Total Billed Treatment visit FA 25 CARMINE BRANCH PT Sep 05, 2019 15:35
[2019-09-05] MEDS: IBUPROFEN 600 MG (MOTRIN) TAB PO PRN (18:31)
[2019-09-05] MEDS: CALCIUM CARBONATE 500 MG (TUMS) TAB.CHEW PO PRN (18:31)
[2019-09-05] MEDS: SENNOSIDES 8.6 MG (SENOKOT) TAB PO SCH ×2 (20:17→20:19)
[2019-09-05] MEDS: DOCUSATE SODIUM 100 MG (COLACE) CAP PO SCH ×2 (20:17→20:19)
[2019-09-06] VITALS (7 sets, daily range): BP systolic 136–169; BP diastolic 74–92
[2019-09-06] MEDS: ONDANSETRON 4 MG/2 ML (SDV) Z0FRAN IV PRN ×2 (01:02→06:42)
[2019-09-06] MEDS ORDERED: MEROPENEM 500 MG VIAL (MERREM) IV ONE ×2 (02:22→09:21)
[2019-09-06] MEDS ORDERED: WATER (STERILE) FOR INJECTION 10 ML ONE ×2 (02:22→09:21)
[2019-09-06] MEDS: RT-ALBUTEROL INHALER HFA (VENTOLIN HFA) 8 GM IH SCH ×3 (02:35→20:43)
[2019-09-06] MEDS: MEROPENEM 500 MG/SWFI 10 ML IV PUSH IV SCH ×8 (02:48→20:31)
[2019-09-06] MEDS: ACETAMINOPHEN 325 MG TABLET PO PRN (02:52)
[2019-09-06] MEDS: ENOXAPARIN 40 MG/0.4 ML (LOVENOX) SYR SC SCH (06:38)
[2019-09-06 07:35] LABS: BASOPHILS % (AUTO) 0 % (0-10); EOSINOPHILS # (AUTO) 0.3 10^3/uL (0.0-0.3); EOSINOPHILS % (AUTO) 3 % (0-10); HEMATOCRIT 28 % (35-52); HEMOGLOBIN 8.6 G/DL (11.5-16.0); LYMPHOCYTES # (AUTO) 1.7 X 10^3 (1.0-4.0); LYMPHOCYTES % (AUTO) 13 % (12-44); MEAN CORPUSCULAR HEMOGLOBIN 29 PG (25-34); MEAN CORPUSCULAR HGB CONC 31 G/DL (32-36); MEAN CORPUSCULAR VOLUME 94 FL (80-99); MEAN PLATELET VOLUME 8.6 FL (7.4-10.4); MONOCYTES # (AUTO) 0.8 X 10^3 (0.0-1.0); MONOCYTES % (AUTO) 7 % (0-12); NEUTROPHILS % (AUTO) 77 % (42-75); PLATELET COUNT 473 10^3/uL (130-400); RED CELL DISTRIBUTION WIDTH 15.8 % (10.0-14.5); WHITE BLOOD COUNT 12.9 10^3/uL (4.3-11.0)
[2019-09-06 07:59] LABS: BUN/CREATININE RATIO 16; CALCIUM 8.9 MG/DL (8.5-10.1); CARBON DIOXIDE 23 MMOL/L (21-32); CHLORIDE 104 MMOL/L (98-107); CREATININE SERUM 0.62 MG/DL (0.60-1.30); GFR ESTIMATED > 60; GLUCOSE 93 MG/DL (70-105); MAGNESIUM 2.4 MG/DL (1.6-2.4); PHOSPHORUS 3.1 MG/DL (2.3-4.7); POTASSIUM 3.8 MMOL/L (3.6-5.0); SODIUM 140 MMOL/L (135-145)
--- NOTE | 2019-09-06 08:05 | Progress Note ---
Standard Progress Note Progress Notes/Assess & Plan Date Seen by a Provider: Sep 06, 2019 Time Seen by a Provider: 08:04 Progress/Assessment & Plan feeling much better today. Denies knee pain Vital Signs Date Time Temp Pulse Resp B/P (MAP) Pulse Ox O2 Delivery O2 Flow Rate FiO2 09/01/19 06:00 84 20 109/68 (82) 99 Nasal Cannula 2.00 09/01/19 05:00 83 18 104/63 (77) 100 Nasal Cannula 2.00 09/01/19 04:00 86 18 75/55 (62) 98 Nasal Cannula 2.00 09/01/19 04:00 37.2 09/01/19 04:00 94 Nasal Cannula 2.00 09/01/19 03:00 93 20 84/44 (57) 100 Nasal Cannula 2.00 09/01/19 02:00 100 18 95/56 (69) 91 Nasal Cannula 2.00 09/01/19 01:00 106 09/01/19 01:00 106 16 98/59 (72) 94 Nasal Cannula 2.00 09/01/19 00:49 36.7 Nasal Cannula 2.00 09/01/19 00:00 94 Nasal Cannula 2.00 09/01/19 00:00 115 18 100/57 (71) 96 Room Air 08/31/19 23:00 117 23 129/60 (83) 92 Room Air 08/31/19 23:00 37.7 08/31/19 22:30 120 22 125/67 (86) 94 Room Air 08/31/19 22:15 120 23 123/63 (83) 92 Room Air 08/31/19 22:00 121 16 124/64 (84) 92 Room Air 08/31/19 21:45 147 17 128/66 (86) 96 Room Air 08/31/19 21:30 39.0 08/31/19 21:30 148 I & O 09/01/19 07:00 Intake Total 670 ml Output Total 850 ml Balance -180 ml Laboratory Tests Test 08/31/19 21:55 08/31/19 23:10 09/01/19 01:30 Range/Units Blood Gas Puncture Site LEFT RADIAL Blood Gas Patient Temperature 39.0 Arterial Blood pH 7.47 H 7.37-7.43 Arterial Blood Partial Pressure CO2 31 L 35-45 MMHG Arterial Blood Partial Pressure O2 83 79-93 MMHG Arterial Blood HCO3 21 L 23-27 MMOL/L Arterial Blood Total CO2 22.1 21.0-31.0 MMOL/L Arterial Blood Oxygen Saturation 96 94-100 % Arterial Blood Base Excess -1.6 -2.5-2.5 MMOL/L Can Test POSITIVE Blood Gas Ventilator Setting NO Blood Gas Inspired Oxygen RA Lactic Acid Level 2.77 *H 1.47 0.50-2.00 MMOL/L White Blood Count 12.6 H 4.3-11.0 10^3/uL Red Blood Count 2.87 L 4.35-5.85 10^6/uL Hemoglobin 8.3 L 11.5-16.0 G/DL Hematocrit 27 L 35-52 % Mean Corpuscular Volume 92 80-99 FL Mean Corpuscular Hemoglobin 29 25-34 PG Mean Corpuscular Hemoglobin Concent 31 L 32-36 G/DL Red Cell Distribution Width 15.9 H 10.0-14.5 % Platelet Count 302 130-400 10^3/uL Mean Platelet Volume 8.5 7.4-10.4 FL Neutrophils (%) (Auto) 96 H 42-75 % Lymphocytes (%) (Auto) 3 L 12-44 % Monocytes (%) (Auto) 1 0-12 % Eosinophils (%) (Auto) 0 0-10 % Basophils (%) (Auto) 0 0-10 % Neutrophils # (Auto) 12.1 H 1.8-7.8 X 10^3 Lymphocytes # (Auto) 0.4 L 1.0-4.0 X 10^3 Monocytes # (Auto) 0.1 0.0-1.0 X 10^3 Eosinophils # (Auto) 0.0 0.0-0.3 10^3/uL Basophils # (Auto) 0.0 0.0-0.1 10^3/uL Sodium Level 134 L 135-145 MMOL/L Potassium Level 3.1 L 3.6-5.0 MMOL/L Chloride Level 101 98-107 MMOL/L Carbon Dioxide Level 20 L 21-32 MMOL/L Anion Gap 13 5-14 MMOL/L Blood Urea Nitrogen 14 7-18 MG/DL Creatinine 0.96 0.60-1.30 MG/DL Estimat Glomerular Filtration Rate 59 BUN/Creatinine Ratio 15 Glucose Level 108 H 70-105 MG/DL Calcium Level 8.7 8.5-10.1 MG/DL Phosphorus Level 2.2 L 2.3-4.7 MG/DL Magnesium Level 1.8 1.6-2.4 MG/DL L knee incision clean and dry without erythema or warmth. echymosis present. no calf tenderness. Neg Shawn's s/p L TKA with subsequent quad rupture and repair i do not believe the knee is the source of the patient's decompensation. Ok to continue PT from my standpoint Final Diagnosis feeling weak no knee pain Vital Signs Date Time Temp Pulse Resp B/P (MAP) Pulse Ox O2 Delivery O2 Flow Rate FiO2 09/06/19 05:05 36.8 101 18 162/74 (103) 93 Room Air 09/06/19 04:40 36.8 101 18 162/74 (103) 93 Room Air 09/06/19 02:36 95 Room Air 09/06/19 01:00 106 09/06/19 00:42 37.0 113 16 136/78 (97) 95 Room Air 09/05/19 21:06 95 Room Air 09/05/19 20:42 Room Air 09/05/19 19:46 37.0 101 18 151/81 (104) 98 Room Air 09/05/19 19:00 106 09/05/19 16:25 37.4 95 16 151/90 (110) 95 Room Air 09/05/19 16:23 98 Room Air 09/05/19 13:00 36.1 97 16 146/72 (96) 98 Room Air 09/05/19 12:43 97 09/05/19 12:00 36.1 97 16 146/72 (96) 98 Room Air 09/05/19 10:42 36.1 97 16 146/72 (96) 98 Room Air 09/05/19 10:00 101 21 163/78 (106) 100 Room Air 09/05/19 09:00 98 12 150/73 (98) 96 Room Air 09/05/19 08:12 96 Room Air I & O 09/06/19 07:00 Intake Total 1430 ml Output Total 1800 ml Balance -370 ml Laboratory Tests Test 09/05/19 13:30 09/05/19 15:43 09/05/19 23:27 09/06/19 05:30 Range/Units Glucometer 98 104 103 102 70-110 MG/DL Test 09/06/19 07:25 Range/Units White Blood Count 12.9 H 4.3-11.0 10^3/uL Red Blood Count 2.99 L 4.35-5.85 10^6/uL Hemoglobin 8.6 L 11.5-16.0 G/DL Hematocrit 28 L 35-52 % Mean Corpuscular Volume 94 80-99 FL Mean Corpuscular Hemoglobin 29 25-34 PG Mean Corpuscular Hemoglobin Concent 31 L 32-36 G/DL Red Cell Distribution Width 15.8 H 10.0-14.5 % Platelet Count 473 H 130-400 10^3/uL Mean Platelet Volume 8.6 7.4-10.4 FL Neutrophils (%) (Auto) 77 H 42-75 % Lymphocytes (%) (Auto) 13 12-44 % Monocytes (%) (Auto) 7 0-12 % Eosinophils (%) (Auto) 3 0-10 % Basophils (%) (Auto) 0 0-10 % Neutrophils # (Auto) 10.0 H 1.8-7.8 X 10^3 Lymphocytes # (Auto) 1.7 1.0-4.0 X 10^3 Monocytes # (Auto) 0.8 0.0-1.0 X 10^3 Eosinophils # (Auto) 0.3 0.0-0.3 10^3/uL Basophils # (Auto) 0.0 0.0-0.1 10^3/uL Sodium Level 140 135-145 MMOL/L Potassium Level 3.8 3.6-5.0 MMOL/L Chloride Level 104 98-107 MMOL/L Carbon Dioxide Level 23 21-32 MMOL/L Anion Gap 13 5-14 MMOL/L Blood Urea Nitrogen 10 7-18 MG/DL Creatinine 0.62 0.60-1.30 MG/DL Estimat Glomerular Filtration Rate > 60 BUN/Creatinine Ratio 16 Glucose Level 93 70-105 MG/DL Calcium Level 8.9 8.5-10.1 MG/DL Phosphorus Level 3.1 2.3-4.7 MG/DL Magnesium Level 2.4 1.6-2.4 MG/DL L knee incision clean and dry. No effusion. No erythema. s/p L TKA with quad repair PT/OT REFUGIO MANZANARES MD Sep 06, 2019 08:05
[2019-09-06] MEDS ORDERED: KCL 20 MEQ TAB (K-DUR) PO NR (08:15)
[2019-09-06] MEDS ORDERED: LACTULOSE SYRUP 10GM/15ML (ENULOSE) 30ML UDC PO PRN (08:15)
[2019-09-06] MEDS: polyethylene glycoL POWDER 17 GM (MIRALAX) PACK PO SCH ×2 (09:16→20:34)
[2019-09-06] MEDS: DOCUSATE SODIUM 100 MG (COLACE) CAP PO SCH ×2 (09:16→20:34)
[2019-09-06] MEDS: SENNOSIDES 8.6 MG (SENOKOT) TAB PO SCH ×2 (09:16→20:34)
--- NOTE | 2019-09-06 09:20 | Progress Note - Cardiology ---
Cardiology SOAP Progress Note Subjective: Sitting up on the side of the bed with PT. C/O lightheadedness when sitting up. BP checked and noted to be 167/90 with HR 116. C/O some nausea. No c/o CP. No c/o dyspnea. Objective: I&O/Vital Signs 09/06/19 09/06/19 09/07/19 09/07/19 20:35 20:43 00:00 01:00 Temp 36.4 Pulse 101 91 Resp 18 B/P (MAP) 120/60 (80) Pulse Ox 95 98 O2 Delivery Room Air Room Air Room Air 09/07/19 09/07/19 09/07/19 02:42 03:36 07:06 Temp 36.4 Pulse 90 92 Resp 18 B/P (MAP) 127/73 (91) Pulse Ox 97 97 O2 Delivery Room Air Room Air 09/07/19 00:00 Intake Total 1480 ml Output Total 1400 ml Balance 80 ml Weight (Pounds): 183 Weight (Ounces): 5.0 Weight (Calculated Kilograms): 83.864386 Constitutional: AAO x 3, well-developed, well-nourished Respiratory: chest expansion is symmetric, chest is bilaterally symmetric, other (good air entry) Cardiovascular: regular rate-rhythm; No JVD; S1 and S2 Gastrointestional: soft, audible bowel sounds Extremities: normal range of motion, non-tender, normal inspection, other (Brace to left leg), no lower extremity edema bilateral Neurologic/Psychiatric: other (moves all extremities; brace in place to left leg) Skin: normal color, warm/dry, rash on exposed areas (diffuse, red raised rash to coccyx and right hip); No ulcerations on exposed areas Results/Procedures: Labs Laboratory Tests 09/06/19 13:08: Glucometer 112H 09/06/19 18:19: Glucometer 129H 09/07/19 00:11: Glucometer 122H 09/07/19 06:06: White Blood Count 16.3H, Red Blood Count 2.98L, Hemoglobin 8.5L, Hematocrit 28L, Mean Corpuscular Volume 95, Mean Corpuscular Hemoglobin 29, Mean Corpuscular Hemoglobin Concent 30L, Red Cell Distribution Width 16.1H, Platelet Count 552H, Mean Platelet Volume 8.3, Neutrophils (%) (Auto) 75, Lymphocytes (%) (Auto) 15, Monocytes (%) (Auto) 8, Eosinophils (%) (Auto) 2, Basophils (%) (Auto) 0, Neutrophils # (Auto) 12.2H, Lymphocytes # (Auto) 2.4, Monocytes # (Auto) 1.2H, Eosinophils # (Auto) 0.4H, Basophils # (Auto) 0.0, Neutrophils % (Manual) 77, Lymphocytes % (Manual) 13, Monocytes % (Manual) 5, Eosinophils % (Manual) 3, Band Neutrophils 2, Polychromasia SLIGHT, Anisocytosis MODERATE, Sodium Level 140, Potassium Level 4.1, Chloride Level 104, Carbon Dioxide Level 27, Anion Gap 9, Blood Urea Nitrogen 10, Creatinine 0.59L, Estimat Glomerular Filtration Rate > 60, BUN/Creatinine Ratio 17, Glucose Level 103, Calcium Level 8.9, Phosphorus Level 3.0, Magnesium Level 2.1 Microbiology 09/02/19 Blood Culture - Preliminary, Resulted No growth 09/02/19 Gram Stain - Final, Complete 09/02/19 Body Fluid Culture - Final, Complete No growth 09/02/19 Gram Stain - Final, Complete 09/02/19 Sputum Culture - Final, Complete Usual upper respiratory kelsey YEAST A/P: Assessment: Ac resp failure (with transient hypoxia) - extubated on 09-04-2019 Septic shock with hypotension requiring pressor support (hypotension now resolved) s/p L total knee arthroplasty on 08/22/19 and quadriceps tendon repair on 08/24/19 Severe, post-op anemia Intermittent sinus tach during this hospitalization Left bundle branch block, chronic History of cardiac catheterization in 2012: mild coronary artery disease; last MPI in March 2019 showing no significant ischemia or infarction, ejection fraction 78 percent. Echo 09/02/19 (Dr Willingham): LVEF 45-50%, no RWMA, mod TR, PASP 40-45 mmHg History of isolated PVCs and few brief runs of nonsustained ventricular tachycardia, she was seen by Dr. Marie and Dr. Lewis as an outpatient. Hyperlipidemia, treated with Lipitor History of mild carotid stenosis H/o tobacco use Plan: * BP not well controlled - increase BB dose * Anemia - improved, management per medical/surgical services * COVID status negative - continue enoxaparin at DVT prophylaxis dosing * Monitor labs * Management of rash per medical services * Replace electrolytes as indicated * I discussed her CV issues with her and answered questions ANITA TREVIÑO Sep 06, 2019 09:20
[2019-09-06] MEDS: FAMOTIDINE 20 MG (PEPCID) TABLET PO SCH ×2 (09:26→20:31)
[2019-09-06] MEDS: meTOproloL SUCCINATE 50 MG (TOPROL XL) TAB PO SCH (09:26)
[2019-09-06] MEDS ORDERED: meTOproloL SUCCINATE 50 MG (TOPROL XL) TAB PO NR (09:45)
--- NOTE | 2019-09-06 10:03 | Physical Therapy Daily Note ---
PT Daily Note-Current Subjective Patient reports she is dizzy and hasn't slept. Patient is very slow to respond to questions. Pain Numeric Pain Scale: 5-Moderate Pain Location: Left Location Body Site: Knee Pain Description: Acute Mental Status Patient Orientation: Person, Time, Situation Attachments: Brooks Catheter Transfers SCALE: Activities may be completed with or without assistive devices. 5-Akcdhoirrt-ytgnhnz completes the activity by him/herself with no assistance from a helper. 5-Set-up or Clean-up Assistance-helper sets up or cleans up; patient completes activity. [place] assists only prior to or following the activity. 4-Supervision or Touching Assistance-helper provides verbal cues and/or touching/steadying and/or contact guard assistance as patient completes activity. Assistance may be provided throughout the activity or intermittently. 3-Partial/Moderate Assistance-helper does LESS THAN HALF the effort. [place] lifts, holds or supports trunk or limbs, but provides less than half the effort. 2-Substantial/Maximal Assistance-helper does MORE THAN HALF the effort. [place] lifts or holds trunk or limbs and provides more than half the effort. 1-Ijvhvfdca-ympvgh does ALL the effort. Patient does none of the effort to complete the activity. Or, the assistance of 2 or more helpers is required for the patient to complete the activity. If activity was not attempted, code reason: 7-Patient Refused. 9-Not Applicable-not attempted and the patient did not perform the activity before the current illness, exacerbation or injury. 10-Not Attempted due to Environmental Limitations-(lack of equipment, weather restraints, etc.). 88-Not Attempted due to Medical Conditions or Safety Concerns. Roll Left & Right (QC): 5 Lying to Sitting/Side of Bed(Q: 5 Sit to Stand (QC): 4 Chair/One-oi-Izlop Xfer(QC): 4 Weight Bearing Right Lower Extremity: Right Weight Bearing/Tolerated Left Lower Extremity: Left Weight Bearing/Tolerated Gait Training Does the Patient Walk?: Yes Distance: 10' Walk 10 feet (QC): 4 Gait Assistive Device: FWW left knee brace in place Exercises Supine Ex: Ankle pumps, Quad Set Supine Reps: 15 Assessment Patient is up in recliner with needs met. PT to increase activity as tolerated by patient. PT Detention Goals Skip Tracer Goals PT Detention Goals Time Frame: Sep 15, 2019 Roll Left & Right (QC): 6 Sit to Lying (QC): 6 Lying-Sitting on Side/Bed(QC): 6 Sit to Stand (QC): 6 Chair/Chx-us-Iefzb Xfer(QC): 6 Toilet Transfer (QC): 6 Car Transfer (QC): 6 Does the Patient Walk: No and Walking Goal IS indicated Walk 10 feet (QC): 6 Walk 50ft with 2 Turns (QC): 6 Walk 150 ft (QC): 6 Walking 10ft on Uneven Surface: 6 1 Step (curb) (QC): 6 PT Plan Treatment/Plan Treatment Plan: Continue Plan of Care Treatment Plan: Bed Mobility, Education, Functional Activity [place]andra, Functional Strength, Gait, Safety, Therapeutic Exercise, Transfers Treatment Duration: Sep 15, 2019 Frequency: 6 times per week Estimated Hrs Per Day: .25 hour per day Patient and/or Family Agrees t: Yes Time/GCodes Time In: 905 Time Out: 920 Total Billed Treatment Time: 15 Total Billed Treatment 1 visit FA 15 min WILVER GRIMM PT Sep 06, 2019 10:03
--- NOTE | 2019-09-06 10:56 | Progress Note - Hospitalist ---
Subjective HPI/CC On Admission Date Seen by Provider: Sep 06, 2019 Time Seen by Provider: 09:40 Pt is a 64yoCF with a PMH of osteogenesis imperfecta who underwent TKA and quadriceps rupture repair last week. She was admitted to rehab following these surgeries but developed hypotension, fever, and tachycardia overnight and was transferred to the ICU. There was concern for sepsis and CXR and UA were done and were normal. Dr Gann and I examined her knee which does not appear to be infected and is healing well. CTA was done to rule out PE and was negative. It did not show any ground glasss opacities either. She does not have a cough and is on room air. This morning she states she is feeling better but still mentally foggy. No other complaints or concerns. Subjective/Events-last exam She is feeling better today. She is sitting in her bedside chair. She denies any shortness of breath. She still has a cough and is producing whitish sputum. She denies any fevers or chills. She continues to have some nausea but no vomiting. She wants to give back to inpatient rehabilitation. Objective Exam Vital Signs Vital Signs Date Time Temp Pulse Resp B/P (MAP) Pulse Ox O2 Delivery O2 Flow Rate FiO2 09/06/19 08:00 36.7 102 18 169/80 (109) 98 Room Air 09/05/19 04:00 09/04/19 09:50 30 Capillary Refill : General Appearance: No Apparent Distress, Obese Respiratory: Lungs Clear, Normal Breath Sounds, No Respiratory Distress Cardiovascular: Regular Rate, Rhythm, No Edema, No Murmur Gastrointestinal: Normal Bowel Sounds, Non Tender, Soft Extremity: Non Tender, No Pedal Edema, Other (Brace in place on left leg) Neurologic/Psychiatric: Alert, Oriented x3, No Motor/Sensory Deficits, Normal Mood/Affect Skin: Normal Color, Warm/Dry Results/Procedures Lab Laboratory Tests 09/06/19 07:25 Patient resulted labs reviewed. Imaging: Reviewed Imaging Report Assessment/Plan Assessment and Plan Assess & Plan/Chief Complaint Multifocal pneumonia Leukocytosis Pulmonology consulted, appreciate assistance Chest x-ray with bilateral infiltrates Extubated 09/03 COVID negative WBC increased to 12.9 today No obvious infectious source other than pneumonia Continue Merrem for pneumonia Nausea and vomiting Constipation Continue Zofran and Phenergan as needed Continue bowel regimen Anemia Hemoglobin 8.6, improved Continue to monitor s/p TKA and quadriceps repair Osteogenesis imperfecta Ortho consulted, appreciate recs PT/OT Likely transfer to inpatient rehabilitation tomorrow DVT prophylaxis: Lovenox Lactic acidosis, resolved Endotracheally intubated, resolved Severe sepsis, resolved Acute respiratory failure with hypoxia, resolved Diagnosis/Problems Diagnosis/Problems (1) Severe sepsis Status: Resolved Resolution Date/Time: 09/05/19 @ 13:37 (2) Lactic acidosis Status: Resolved Resolution Date/Time: 09/05/19 @ 13:37 (3) Multifocal pneumonia Status: Acute (4) Quadriceps tendon rupture Status: Acute Qualifiers: Encounter type: subsequent encounter (5) Osteoarthritis of left knee Status: Chronic Qualifiers: Osteoarthritis type: primary Qualified Codes: M17.12 - Unilateral primary osteoarthritis, left knee (6) Acute respiratory failure with hypoxia Status: Resolved Resolution Date/Time: 09/06/19 @ 11:03 (7) Endotracheally intubated Status: Resolved Resolution Date/Time: 09/05/19 @ 13:37 Clinical Quality Measures DVT/VTE Risk/Contraindication: Risk Factor Score Per Nursin RFS Level Per Nursing on Admit: 4+=Very High JOANIE WAITE MD Sep 06, 2019 10:56
--- NOTE | 2019-09-06 11:16 | Occ Therapy Progress Note ---
Therapy Progress Note Pt declines therapy at this time due to fatigue wants to wait for sponge bath in pm. Will check on pt at that time. CARMINE BELTRAN Sep 06, 2019 11:16
--- NOTE | 2019-09-06 11:56 | Cardiology Progress Note ---
Cardiology SOAP Progress Note Subjective: No cardiac complaints. Objective: I&O/Vital Signs 09/06/19 09/06/19 09/06/19 09/06/19 00:42 01:00 02:36 04:40 Temp 37.0 36.8 Pulse 113 106 101 Resp 16 18 B/P (MAP) 136/78 (97) 162/74 (103) Pulse Ox 95 95 93 O2 Delivery Room Air Room Air Room Air 09/06/19 09/06/19 09/06/19 09/06/19 05:05 06:47 08:00 08:00 Temp 36.8 36.7 Pulse 101 105 102 Resp 18 18 B/P (MAP) 162/74 (103) 169/80 (109) Pulse Ox 93 98 O2 Delivery Room Air Room Air Room Air 09/06/19 00:00 Intake Total 900 ml Output Total 725 ml Balance 175 ml Weight (Pounds): 183 Weight (Ounces): 5.0 Weight (Calculated Kilograms): 83.493867 Constitutional: AAO x 3, well-developed, well-nourished Respiratory: chest expansion is symmetric, chest is bilaterally symmetric, other (good air entry) Cardiovascular: regular rate-rhythm; No JVD; S1 and S2 Gastrointestional: soft, audible bowel sounds Extremities: normal range of motion, non-tender, normal inspection, other (Brace to left leg), no lower extremity edema bilateral Neurologic/Psychiatric: other (moves all extremities; brace in place to left leg) Skin: normal color, warm/dry, rash on exposed areas (diffuse, red raised rash to coccyx and right hip); No ulcerations on exposed areas Results/Procedures: Labs Laboratory Tests 09/05/19 13:30: Glucometer 98 09/05/19 15:43: Glucometer 104 09/05/19 23:27: Glucometer 103 09/06/19 05:30: Glucometer 102 09/06/19 07:25: White Blood Count 12.9H, Red Blood Count 2.99L, Hemoglobin 8.6L, Hematocrit 28L, Mean Corpuscular Volume 94, Mean Corpuscular Hemoglobin 29, Mean Corpuscular Hemoglobin Concent 31L, Red Cell Distribution Width 15.8H, Platelet Count 473H, Mean Platelet Volume 8.6, Neutrophils (%) (Auto) 77H, Lymphocytes (%) (Auto) 13, Monocytes (%) (Auto) 7, Eosinophils (%) (Auto) 3, Basophils (%) (Auto) 0, Neutrophils # (Auto) 10.0H, Lymphocytes # (Auto) 1.7, Monocytes # (Auto) 0.8, Eosinophils # (Auto) 0.3, Basophils # (Auto) 0.0, Sodium Level 140, Potassium Level 3.8, Chloride Level 104, Carbon Dioxide Level 23, Anion Gap 13, Blood Urea Nitrogen 10, Creatinine 0.62, Estimat Glomerular Filtration Rate > 60, BUN/Creatinine Ratio 16, Glucose Level 93, Calcium Level 8.9, Phosphorus Level 3.1, Magnesium Level 2.4 Microbiology 09/02/19 Blood Culture - Preliminary, Resulted No growth 09/02/19 Gram Stain - Final, Complete 09/02/19 Body Fluid Culture - Final, Complete No growth 09/02/19 Gram Stain - Final, Complete 09/02/19 Sputum Culture - Final, Complete Usual upper respiratory kelsey YEAST A/P: Assessment/Dx: Sepsis, Acute Respiratory failure, Mild CAD, History of PVCs, Nonsustained ventricular tachycardia Plan: No acute cardiac electrophysiology concerns. Patient has history of PVCs and nonsustained ventricular tachycardia with mild CAD and normal LV function. No acute arrhythmias during this hospitalization. Sinus tachycardia due to significant systemic illness. Which is now resolved. Keep potassium over 4 and magnesium over 2. Defer treatment of sepsis and acute respiratory failure to the primary team. Resolved. Thank you for your consultation. Please call me if you have any questions. Rafy Lewis MD, FACP, FACC, FSCAI, FHRS, CCDS Interventional Cardiology Cardiac Electrophysiology Vascular Medicine and Endovascular Interventions Dany LEWIS MD Sep 06, 2019 11:56
--- NOTE | 2019-09-06 12:58 | Progress Note - Cardiology ---
Cardiology SOAP Progress Note Subjective: No cp or palp or syncope No shortness of breath at rest Gen malaise No focal weakness Objective: I&O/Vital Signs 09/06/19 09/06/19 09/06/19 09/06/19 01:00 02:36 04:40 05:05 Temp 36.8 36.8 Pulse 106 101 101 Resp 18 18 B/P (MAP) 162/74 (103) 162/74 (103) Pulse Ox 95 93 93 O2 Delivery Room Air Room Air Room Air 09/06/19 09/06/19 09/06/19 06:47 08:00 08:00 Temp 36.7 Pulse 105 102 Resp 18 B/P (MAP) 169/80 (109) Pulse Ox 98 O2 Delivery Room Air Room Air 09/06/19 00:00 Intake Total 900 ml Output Total 725 ml Balance 175 ml Weight (Pounds): 183 Weight (Ounces): 5.0 Weight (Calculated Kilograms): 83.031569 Constitutional: AAO x 3, well-developed, well-nourished Respiratory: chest expansion is symmetric, chest is bilaterally symmetric, other (good air entry) Cardiovascular: regular rate-rhythm; No JVD; S1 and S2 Gastrointestional: soft, audible bowel sounds Extremities: normal range of motion, non-tender, normal inspection, other (Brace to left leg), no lower extremity edema bilateral Neurologic/Psychiatric: other (moves all extremities; brace in place to left leg) Skin: normal color, warm/dry, rash on exposed areas (diffuse, red raised rash to coccyx and right hip); No ulcerations on exposed areas Results/Procedures: Labs Laboratory Tests 09/05/19 13:30: Glucometer 98 09/05/19 15:43: Glucometer 104 09/05/19 23:27: Glucometer 103 09/06/19 05:30: Glucometer 102 09/06/19 07:25: White Blood Count 12.9H, Red Blood Count 2.99L, Hemoglobin 8.6L, Hematocrit 28L, Mean Corpuscular Volume 94, Mean Corpuscular Hemoglobin 29, Mean Corpuscular Hemoglobin Concent 31L, Red Cell Distribution Width 15.8H, Platelet Count 473H, Mean Platelet Volume 8.6, Neutrophils (%) (Auto) 77H, Lymphocytes (%) (Auto) 13, Monocytes (%) (Auto) 7, Eosinophils (%) (Auto) 3, Basophils (%) (Auto) 0, Neutrophils # (Auto) 10.0H, Lymphocytes # (Auto) 1.7, Monocytes # (Auto) 0.8, Eosinophils # (Auto) 0.3, Basophils # (Auto) 0.0, Sodium Level 140, Potassium Level 3.8, Chloride Level 104, Carbon Dioxide Level 23, Anion Gap 13, Blood Urea Nitrogen 10, Creatinine 0.62, Estimat Glomerular Filtration Rate > 60, BUN/Creatinine Ratio 16, Glucose Level 93, Calcium Level 8.9, Phosphorus Level 3.1, Magnesium Level 2.4 Microbiology 09/02/19 Blood Culture - Preliminary, Resulted No growth 09/02/19 Gram Stain - Final, Complete 09/02/19 Body Fluid Culture - Final, Complete No growth 09/02/19 Gram Stain - Final, Complete 09/02/19 Sputum Culture - Final, Complete Usual upper respiratory kelsey YEAST Laboratory Tests 09/05/19 02:55 09/06/19 07:25 A/P: Assessment: Ac resp failure (with transient hypoxia) - extubated on 09-04-2019 Septic shock with hypotension requiring pressor support (hypotension now resolved) s/p L total knee arthroplasty on 08/22/19 and quadriceps tendon repair on 08/24/19 Severe, post-op anemia Intermittent sinus tach during this hospitalization Left bundle branch block, chronic History of cardiac catheterization in 2013: mild coronary artery disease; last MPI in March 2019 showing no significant ischemia or infarction, ejection fraction 78 percent. Echo 09/02/19 (Dr Willingham): LVEF 45-50%, no RWMA, mod TR, PASP 40-45 mmHg History of isolated PVCs and few brief runs of nonsustained ventricular tachycardia, she was seen by Dr. Marie and Dr. Lewis as an outpatient. Hyperlipidemia, treated with Lipitor History of mild carotid stenosis H/o tobacco use Plan: * BP not well controlled - increase BB dose * Anemia - improved, management per medical/surgical services * Monitor labs * Management of rash per medical services * Replace electrolytes as indicated JUANJO MARCIAL MD FACP [facility] CCDS Sep 06, 2019 12:57
--- NOTE | 2019-09-06 13:30 | Occupational Ther Daily Note ---
OT Current Status-Daily Note Subjective Pt alert, sitting in recliner. Pt agrees to therapy. Pt slow to respond to questions and states that she continues to be tired and has a 99* temp. Mental Status/Objective Patient Orientation: Person, Place, Time, Situation Attachments: IV, Telemetry ADL-Treatment Pt agrees to sponge bath. Pt able to set own self up for eating and uses regular utensils. Set up for bathing all areas except buttocks and L LE (knee immobilizer). Therapy Code Descriptions/Definitions Functional [place] Measure: 0=Not Assessed/NA 4=Minimal Assistance 1=Total Assistance 5=Supervision or Setup 2=Maximal Assistance 6=Modified [place] 3=Moderate Assistance 7=Complete IndependenceSCALE: Activities may be completed with or without assistive devices. 8-Ljugzeyabb-rczllqv completes the activity by him/herself with no assistance from a helper. 5-Set-up or Clean-up Assistance-helper sets up or cleans up; patient completes activity. [place] assists only prior to or following the activity. 4-Supervision or Touching Assistance-helper provides verbal cues and/or touching/steadying and/or contact guard assistance as patient completes activity. Assistance may be provided throughout the activity or intermittently. 3-Partial/Moderate Assistance-helper does LESS THAN HALF the effort. [place] lifts, holds or supports trunk or limbs, but provides less than half the effort. 2-Substantial/Maximal Assistance-helper does MORE THAN HALF the effort. [place] lifts or holds trunk or limbs and provides more than half the effort. 8-Ehzemqryt-bmxaih does ALL the effort. Patient does none of the effort to complete the activity. Or, the assistance of 2 or more helpers is required for the patient to complete the activity. If activity was not attempted, code reason: 7-Patient Refused. 9-Not Applicable-not attempted and the patient did not perform the activity before the current illness, exacerbation or injury. 10-Not Attempted due to Environmental Limitations-(lack of equipment, weather restraints, etc.). 88-Not Attempted due to Medical Conditions or Safety Concerns. OT Group Home Goals Group Home Goals Time Frame: Sep 15, 2019 Eating (QC): 6 Oral Hygiene (QC): 6 Toileting Hygiene (QC): 6 Shower/Bathe Self (QC): 6 Upper Body Dressing (QC): 6 Lower Body Dressing (QC): 6 On/Off Footwear (QC): 6 Additional Goals: 1-Demonstrate ADL Tasks, 2-Verbalize Understanding, 3- ImproveStrength/Alexsandra 1=Demonstrate adherence to instructed precautions during ADL tasks. 2=Patient will verbalize/demonstrate understanding of assistive devices/modifications for ADL. 3=Patient will improve strength/tolerance for activity to enable patient to perform ADL's. OT Education/Plan Treatment Plan/Plan of Care Patient would benefit from OT for education, treatment and training to promote independence in ADL's, mobility, safety and/or upper extremity function for ADL's. Plan of Care: ADL Retraining, Functional Mobility Treatment Duration: Sep 15, 2019 Frequency: 5 times per week Estimated Hrs Per Day: .5 hour per day Agreement: Yes Rehab Potential: CARMINE Palmer Sep 06, 2019 13:29
--- NOTE | 2019-09-06 14:09 | Occupational Ther Daily Note ---
OT Current Status-Daily Note Subjective Pt alert, sitting in recliner. Pt agrees to therapy. Pt slow to respond to questions and states that she continues to be tired and has a 99* temp. Mental Status/Objective Patient Orientation: Person, Place, Time, Situation Attachments: Brooks Catheter, IV, Telemetry ADL-Treatment Pt agrees to sponge bath. Pt able to set own self up for eating and uses regul ar utensils. Set up for bathing all areas except buttocks and L LE (knee immobilizer). Assist x2 for safety in standing to cleanse buttocks, one to stabilize pt then one to cleanse buttocks. At end of session, pt wanted to stand one more time to exchange seat pads, mod A x1 to complete using FWW in stance. After session, pt sitting in recliner with call light/phone in reach. All needs met in room. Therapy Code Descriptions/Definitions Functional [place] Measure: 0=Not Assessed/NA 4=Minimal Assistance 1=Total Assistance 5=Supervision or Setup 2=Maximal Assistance 6=Modified [place] 3=Moderate Assistance 7=Complete IndependenceSCALE: Activities may be completed with or without assistive devices. 8-Acmfduovtz-kblzmtf completes the activity by him/herself with no assistance from a helper. 5-Set-up or Clean-up Assistance-helper sets up or cleans up; patient completes activity. [place] assists only prior to or following the activity. 4-Supervision or Touching Assistance-helper provides verbal cues and/or touching/steadying and/or contact guard assistance as patient completes activity. Assistance may be provided throughout the activity or intermittently. 3-Partial/Moderate Assistance-helper does LESS THAN HALF the effort. [place] lifts, holds or supports trunk or limbs, but provides less than half the effort. 2-Substantial/Maximal Assistance-helper does MORE THAN HALF the effort. [place] lifts or holds trunk or limbs and provides more than half the effort. 6-Qzwivbgnt-wmqfra does ALL the effort. Patient does none of the effort to complete the activity. Or, the assistance of 2 or more helpers is required for the patient to complete the activity. If activity was not attempted, code reason: 7-Patient Refused. 9-Not Applicable-not attempted and the patient did not perform the activity before the current illness, exacerbation or injury. 10-Not Attempted due to Environmental Limitations-(lack of equipment, weather restraints, etc.). 88-Not Attempted due to Medical Conditions or Safety Concerns. Shower/Bathe Self (QC): 3 OT Hole Digger Operator Goals Hole Digger Operator Goals Time Frame: Sep 15, 2019 Eating (QC): 6 Oral Hygiene (QC): 6 Toileting Hygiene (QC): 6 Shower/Bathe Self (QC): 6 Upper Body Dressing (QC): 6 Lower Body Dressing (QC): 6 On/Off Footwear (QC): 6 Additional Goals: 1-Demonstrate ADL Tasks, 2-Verbalize Understanding, 3- ImproveStrength/Alexsandra 1=Demonstrate adherence to instructed precautions during ADL tasks. 2=Patient will verbalize/demonstrate understanding of assistive devices/modifications for ADL. 3=Patient will improve strength/tolerance for activity to enable patient to perform ADL's. OT Education/Plan Problem List/Assessment Assessment: Decreased Activ Tolerance, Impaired Self-Care Skills Discharge Recommendations Plan/Recommendations: Continue POC Treatment Plan/Plan of Care Patient would benefit from OT for education, treatment and training to promote independence in ADL's, mobility, safety and/or upper extremity function for ADL's. Plan of Care: ADL Retraining, Functional Mobility Treatment Duration: Sep 15, 2019 Frequency: 5 times per week Estimated Hrs Per Day: .5 hour per day Agreement: Yes Rehab Potential: Good Time/GCodes Start Time: 13:00 Stop Time: 13:45 Total Time Billed (hr/min): 45 Billed Treatment Time 1 visit-ADL 3 (45 min) CARMINE BELTRAN Sep 06, 2019 14:09
--- NOTE | 2019-09-06 15:00 | NUR ---
Pastoral care visit.
--- NOTE | 2019-09-06 15:33 | NUR ---
Pt is listed as Sabianist but pt has stated it has not been a significant part of her spirituality. Steel Pan Form Placing Supervisor provide pt opportunity to reflect on her current health crisis and journey of recovery.
[2019-09-06] MEDS: MELATONIN 3 MG TABLET PO PRN (20:32)
[2019-09-07] VITALS: BP 120/60
[2019-09-07] MEDS: MEROPENEM 500 MG/SWFI 10 ML IV PUSH IV SCH ×8 (01:57→20:11)
[2019-09-07] MEDS: RT-ALBUTEROL INHALER HFA (VENTOLIN HFA) 8 GM IH SCH ×4 (02:42→18:57)
[2019-09-07 03:36] VITALS: BP 127/73
[2019-09-07] MEDS: ENOXAPARIN 40 MG/0.4 ML (LOVENOX) SYR SC SCH (06:00)
[2019-09-07 06:20] LABS: BASOPHILS % (AUTO) 0 % (0-10); EOSINOPHILS # (AUTO) 0.4 10^3/uL (0.0-0.3); EOSINOPHILS % (AUTO) 2 % (0-10); HEMATOCRIT 28 % (35-52); HEMOGLOBIN 8.5 G/DL (11.5-16.0); LYMPHOCYTES # (AUTO) 2.4 X 10^3 (1.0-4.0); LYMPHOCYTES % (AUTO) 15 % (12-44); MEAN CORPUSCULAR HEMOGLOBIN 29 PG (25-34); MEAN CORPUSCULAR HGB CONC 30 G/DL (32-36); MEAN CORPUSCULAR VOLUME 95 FL (80-99); MEAN PLATELET VOLUME 8.3 FL (7.4-10.4); MONOCYTES # (AUTO) 1.2 X 10^3 (0.0-1.0); MONOCYTES % (AUTO) 8 % (0-12); NEUTROPHILS # (AUTO) 12.2 X 10^3 (1.8-7.8); NEUTROPHILS % (AUTO) 75 % (42-75); PLATELET COUNT 552 10^3/uL (130-400); RED CELL DISTRIBUTION WIDTH 16.1 % (10.0-14.5); WHITE BLOOD COUNT 16.3 10^3/uL (4.3-11.0)
[2019-09-07 06:31] LABS: CHLORIDE 104 MMOL/L (98-107); POTASSIUM 4.1 MMOL/L (3.6-5.0); SODIUM 140 MMOL/L (135-145)
[2019-09-07 06:32] LABS: CALCIUM 8.9 MG/DL (8.5-10.1)
[2019-09-07 06:33] LABS: GLUCOSE 103 MG/DL (70-105)
[2019-09-07 06:34] LABS: CARBON DIOXIDE 27 MMOL/L (21-32)
[2019-09-07 06:36] LABS: CREATININE SERUM 0.59 MG/DL (0.60-1.30); GFR ESTIMATED > 60
[2019-09-07 06:37] LABS: BUN/CREATININE RATIO 17
[2019-09-07 06:39] LABS: ANISOCYTOSIS MODERATE; BAND NEUTROPHILS 2 %; EOSINOPHILS % (MANUAL) 3 %; LYMPHOCYTES % (MANUAL) 13 %; MAGNESIUM 2.1 MG/DL (1.6-2.4); MONOCYTES % (MANUAL) 5 %; NEUTROPHILS % (MANUAL) 77 %; POLYCHROMASIA SLIGHT
--- NOTE | 2019-09-07 07:01 | Progress Note ---
Standard Progress Note Progress Notes/Assess & Plan Date Seen by a Provider: Sep 07, 2019 Time Seen by a Provider: 06:59 Progress/Assessment & Plan feeling much better today. Denies knee pain Vital Signs Date Time Temp Pulse Resp B/P (MAP) Pulse Ox O2 Delivery O2 Flow Rate FiO2 09/01/19 06:00 84 20 109/68 (82) 99 Nasal Cannula 2.00 09/01/19 05:00 83 18 104/63 (77) 100 Nasal Cannula 2.00 09/01/19 04:00 86 18 75/55 (62) 98 Nasal Cannula 2.00 09/01/19 04:00 37.2 09/01/19 04:00 94 Nasal Cannula 2.00 09/01/19 03:00 93 20 84/44 (57) 100 Nasal Cannula 2.00 09/01/19 02:00 100 18 95/56 (69) 91 Nasal Cannula 2.00 09/01/19 01:00 106 09/01/19 01:00 106 16 98/59 (72) 94 Nasal Cannula 2.00 09/01/19 00:49 36.7 Nasal Cannula 2.00 09/01/19 00:00 94 Nasal Cannula 2.00 09/01/19 00:00 115 18 100/57 (71) 96 Room Air 08/31/19 23:00 117 23 129/60 (83) 92 Room Air 08/31/19 23:00 37.7 08/31/19 22:30 120 22 125/67 (86) 94 Room Air 08/31/19 22:15 120 23 123/63 (83) 92 Room Air 08/31/19 22:00 121 16 124/64 (84) 92 Room Air 08/31/19 21:45 147 17 128/66 (86) 96 Room Air 08/31/19 21:30 39.0 08/31/19 21:30 148 I & O 09/01/19 07:00 Intake Total 670 ml Output Total 850 ml Balance -180 ml Laboratory Tests Test 08/31/19 21:55 08/31/19 23:10 09/01/19 01:30 Range/Units Blood Gas Puncture Site LEFT RADIAL Blood Gas Patient Temperature 39.0 Arterial Blood pH 7.47 H 7.37-7.43 Arterial Blood Partial Pressure CO2 31 L 35-45 MMHG Arterial Blood Partial Pressure O2 83 79-93 MMHG Arterial Blood HCO3 21 L 23-27 MMOL/L Arterial Blood Total CO2 22.1 21.0-31.0 MMOL/L Arterial Blood Oxygen Saturation 96 94-100 % Arterial Blood Base Excess -1.6 -2.5-2.5 MMOL/L Can Test POSITIVE Blood Gas Ventilator Setting NO Blood Gas Inspired Oxygen RA Lactic Acid Level 2.77 *H 1.47 0.50-2.00 MMOL/L White Blood Count 12.6 H 4.3-11.0 10^3/uL Red Blood Count 2.87 L 4.35-5.85 10^6/uL Hemoglobin 8.3 L 11.5-16.0 G/DL Hematocrit 27 L 35-52 % Mean Corpuscular Volume 92 80-99 FL Mean Corpuscular Hemoglobin 29 25-34 PG Mean Corpuscular Hemoglobin Concent 31 L 32-36 G/DL Red Cell Distribution Width 15.9 H 10.0-14.5 % Platelet Count 302 130-400 10^3/uL Mean Platelet Volume 8.5 7.4-10.4 FL Neutrophils (%) (Auto) 96 H 42-75 % Lymphocytes (%) (Auto) 3 L 12-44 % Monocytes (%) (Auto) 1 0-12 % Eosinophils (%) (Auto) 0 0-10 % Basophils (%) (Auto) 0 0-10 % Neutrophils # (Auto) 12.1 H 1.8-7.8 X 10^3 Lymphocytes # (Auto) 0.4 L 1.0-4.0 X 10^3 Monocytes # (Auto) 0.1 0.0-1.0 X 10^3 Eosinophils # (Auto) 0.0 0.0-0.3 10^3/uL Basophils # (Auto) 0.0 0.0-0.1 10^3/uL Sodium Level 134 L 135-145 MMOL/L Potassium Level 3.1 L 3.6-5.0 MMOL/L Chloride Level 101 98-107 MMOL/L Carbon Dioxide Level 20 L 21-32 MMOL/L Anion Gap 13 5-14 MMOL/L Blood Urea Nitrogen 14 7-18 MG/DL Creatinine 0.96 0.60-1.30 MG/DL Estimat Glomerular Filtration Rate 59 BUN/Creatinine Ratio 15 Glucose Level 108 H 70-105 MG/DL Calcium Level 8.7 8.5-10.1 MG/DL Phosphorus Level 2.2 L 2.3-4.7 MG/DL Magnesium Level 1.8 1.6-2.4 MG/DL L knee incision clean and dry without erythema or warmth. echymosis present. no calf tenderness. Neg Shawn's s/p L TKA with subsequent quad rupture and repair i do not believe the knee is the source of the patient's decompensation. Ok to continue PT from my standpoint Final Diagnosis reports no knee pain Vital Signs Date Time Temp Pulse Resp B/P (MAP) Pulse Ox O2 Delivery O2 Flow Rate FiO2 09/07/19 03:36 36.4 90 18 127/73 (91) 97 Room Air 09/07/19 02:42 97 Room Air 09/07/19 01:00 91 09/07/19 00:00 36.4 101 18 120/60 (80) 98 Room Air 09/06/19 20:43 95 Room Air 09/06/19 20:35 Room Air 09/06/19 20:00 37.2 96 20 154/92 (112) 97 Room Air 09/06/19 19:00 102 09/06/19 16:00 37.0 90 18 150/79 (102) 94 Room Air 09/06/19 14:12 96 Room Air 09/06/19 12:45 106 09/06/19 12:00 37.2 94 20 160/81 (107) 98 Room Air 09/06/19 08:00 36.7 102 18 169/80 (109) 98 Room Air 09/06/19 08:00 Room Air I & O 09/07/19 07:00 Intake Total 1710 ml Output Total 1875 ml Balance -165 ml Laboratory Tests Test 09/06/19 07:25 09/06/19 13:08 09/06/19 18:19 09/07/19 00:11 Range/Units White Blood Count 12.9 H 4.3-11.0 10^3/uL Red Blood Count 2.99 L 4.35-5.85 10^6/uL Hemoglobin 8.6 L 11.5-16.0 G/DL Hematocrit 28 L 35-52 % Mean Corpuscular Volume 94 80-99 FL Mean Corpuscular Hemoglobin 29 25-34 PG Mean Corpuscular Hemoglobin Concent 31 L 32-36 G/DL Red Cell Distribution Width 15.8 H 10.0-14.5 % Platelet Count 473 H 130-400 10^3/uL Mean Platelet Volume 8.6 7.4-10.4 FL Neutrophils (%) (Auto) 77 H 42-75 % Lymphocytes (%) (Auto) 13 12-44 % Monocytes (%) (Auto) 7 0-12 % Eosinophils (%) (Auto) 3 0-10 % Basophils (%) (Auto) 0 0-10 % Neutrophils # (Auto) 10.0 H 1.8-7.8 X 10^3 Lymphocytes # (Auto) 1.7 1.0-4.0 X 10^3 Monocytes # (Auto) 0.8 0.0-1.0 X 10^3 Eosinophils # (Auto) 0.3 0.0-0.3 10^3/uL Basophils # (Auto) 0.0 0.0-0.1 10^3/uL Sodium Level 140 135-145 MMOL/L Potassium Level 3.8 3.6-5.0 MMOL/L Chloride Level 104 98-107 MMOL/L Carbon Dioxide Level 23 21-32 MMOL/L Anion Gap 13 5-14 MMOL/L Blood Urea Nitrogen 10 7-18 MG/DL Creatinine 0.62 0.60-1.30 MG/DL Estimat Glomerular Filtration Rate > 60 BUN/Creatinine Ratio 16 Glucose Level 93 70-105 MG/DL Calcium Level 8.9 8.5-10.1 MG/DL Phosphorus Level 3.1 2.3-4.7 MG/DL Magnesium Level 2.4 1.6-2.4 MG/DL Glucometer 112 H 129 H 122 H 70-110 MG/DL Test 09/07/19 06:06 Range/Units White Blood Count 16.3 H 4.3-11.0 10^3/uL Red Blood Count 2.98 L 4.35-5.85 10^6/uL Hemoglobin 8.5 L 11.5-16.0 G/DL Hematocrit 28 L 35-52 % Mean Corpuscular Volume 95 80-99 FL Mean Corpuscular Hemoglobin 29 25-34 PG Mean Corpuscular Hemoglobin Concent 30 L 32-36 G/DL Red Cell Distribution Width 16.1 H 10.0-14.5 % Platelet Count 552 H 130-400 10^3/uL Mean Platelet Volume 8.3 7.4-10.4 FL Neutrophils (%) (Auto) 75 42-75 % Lymphocytes (%) (Auto) 15 12-44 % Monocytes (%) (Auto) 8 0-12 % Eosinophils (%) (Auto) 2 0-10 % Basophils (%) (Auto) 0 0-10 % Neutrophils # (Auto) 12.2 H 1.8-7.8 X 10^3 Lymphocytes # (Auto) 2.4 1.0-4.0 X 10^3 Monocytes # (Auto) 1.2 H 0.0-1.0 X 10^3 Eosinophils # (Auto) 0.4 H 0.0-0.3 10^3/uL Basophils # (Auto) 0.0 0.0-0.1 10^3/uL Neutrophils % (Manual) 77 % Lymphocytes % (Manual) 13 % Monocytes % (Manual) 5 % Eosinophils % (Manual) 3 % Band Neutrophils 2 % Polychromasia SLIGHT Anisocytosis MODERATE Sodium Level 140 135-145 MMOL/L Potassium Level 4.1 3.6-5.0 MMOL/L Chloride Level 104 98-107 MMOL/L Carbon Dioxide Level 27 21-32 MMOL/L Anion Gap 9 5-14 MMOL/L Blood Urea Nitrogen 10 7-18 MG/DL Creatinine 0.59 L 0.60-1.30 MG/DL Estimat Glomerular Filtration Rate > 60 BUN/Creatinine Ratio 17 Glucose Level 103 70-105 MG/DL Calcium Level 8.9 8.5-10.1 MG/DL Phosphorus Level 3.0 2.3-4.7 MG/DL Magnesium Level 2.1 1.6-2.4 MG/DL L knee no effusion. No erythema or warmth. no calf tenderness s/p LTKA DC dayna continue PT/OT REFUGIO MANZANARES MD Sep 07, 2019 07:00
--- NOTE | 2019-09-07 08:21 | Progress Note - Cardiology ---
Cardiology SOAP Progress Note Subjective: Sitting up in recliner at the bedside. States she feels pretty good this morning. No c/o CP or SOB. C/O itching at the site of rash to coccyx. Objective: I&O/Vital Signs 09/06/19 09/06/19 09/07/19 09/07/19 20:35 20:43 00:00 01:00 Temp 36.4 Pulse 101 91 Resp 18 B/P (MAP) 120/60 (80) Pulse Ox 95 98 O2 Delivery Room Air Room Air Room Air 09/07/19 09/07/19 09/07/19 02:42 03:36 07:06 Temp 36.4 Pulse 90 92 Resp 18 B/P (MAP) 127/73 (91) Pulse Ox 97 97 O2 Delivery Room Air Room Air 09/07/19 00:00 Intake Total 1480 ml Output Total 1400 ml Balance 80 ml Weight (Pounds): 183 Weight (Ounces): 5.0 Weight (Calculated Kilograms): 83.690443 Constitutional: AAO x 3, well-developed, well-nourished Respiratory: chest expansion is symmetric, chest is bilaterally symmetric, other (good air entry) Cardiovascular: regular rate-rhythm; No JVD; S1 and S2 Gastrointestional: soft, audible bowel sounds Extremities: normal range of motion, non-tender, normal inspection, other (Brace to left leg), no lower extremity edema bilateral Neurologic/Psychiatric: other (moves all extremities; brace in place to left leg) Skin: normal color, warm/dry, rash on exposed areas (diffuse, red raised rash to coccyx and right hip); No ulcerations on exposed areas Results/Procedures: Labs Laboratory Tests 09/06/19 13:08: Glucometer 112H 09/06/19 18:19: Glucometer 129H 09/07/19 00:11: Glucometer 122H 09/07/19 06:06: White Blood Count 16.3H, Red Blood Count 2.98L, Hemoglobin 8.5L, Hematocrit 28L, Mean Corpuscular Volume 95, Mean Corpuscular Hemoglobin 29, Mean Corpuscular Hemoglobin Concent 30L, Red Cell Distribution Width 16.1H, Platelet Count 552H, Mean Platelet Volume 8.3, Neutrophils (%) (Auto) 75, Lymphocytes (%) (Auto) 15, Monocytes (%) (Auto) 8, Eosinophils (%) (Auto) 2, Basophils (%) (Auto) 0, Neutrophils # (Auto) 12.2H, Lymphocytes # (Auto) 2.4, Monocytes # (Auto) 1.2H, Eosinophils # (Auto) 0.4H, Basophils # (Auto) 0.0, Neutrophils % (Manual) 77, Lymphocytes % (Manual) 13, Monocytes % (Manual) 5, Eosinophils % (Manual) 3, Band Neutrophils 2, Polychromasia SLIGHT, Anisocytosis MODERATE, Sodium Level 140, Potassium Level 4.1, Chloride Level 104, Carbon Dioxide Level 27, Anion Gap 9, Blood Urea Nitrogen 10, Creatinine 0.59L, Estimat Glomerular Filtration Rate > 60, BUN/Creatinine Ratio 17, Glucose Level 103, Calcium Level 8.9, Phosphorus Level 3.0, Magnesium Level 2.1 Microbiology 09/02/19 Blood Culture - Preliminary, Resulted No growth 09/02/19 Gram Stain - Final, Complete 09/02/19 Body Fluid Culture - Final, Complete No growth 09/02/19 Gram Stain - Final, Complete 09/02/19 Sputum Culture - Final, Complete Usual upper respiratory kelsey YEAST Laboratory Tests 09/06/19 07:25 09/07/19 06:06 A/P: Assessment: Ac resp failure (with transient hypoxia) - extubated on 09-04-2019 Septic shock with hypotension requiring pressor support (hypotension now resolved) s/p L total knee arthroplasty on 08/22/19 and quadriceps tendon repair on 08/24/19 Severe, post-op anemia - improved - management per medical services Intermittent sinus tach during this hospitalization Left bundle branch block, chronic History of cardiac catheterization in 2012: mild coronary artery disease; last MPI in March 2019 showing no significant ischemia or infarction, ejection fraction 78 percent. Echo 09/02/19 (Dr Willingham): LVEF 45-50%, no RWMA, mod TR, PASP 40-45 mmHg History of isolated PVCs and few brief runs of nonsustained ventricular tachycardia, she was seen by Dr. Marie and Dr. Lewis as an outpatient. Hyperlipidemia, treated with Lipitor History of mild carotid stenosis H/o tobacco use Plan: * BP and HR improved after increase dose of BB * Continue current cardiac regimen * Monitor labs * Management of rash per medical services * Replace electrolytes as indicated ANITA TREVIÑO Sep 07, 2019 08:21
[2019-09-07 08:28] VITALS: BP 125/62
[2019-09-07] MEDS ORDERED: fluCOnazole (DIFLUCAN) 100 MG TAB PO NR (10:15)
[2019-09-07] MEDS: DOCUSATE SODIUM 100 MG (COLACE) CAP PO SCH ×2 (10:24→20:10)
[2019-09-07] MEDS: polyethylene glycoL POWDER 17 GM (MIRALAX) PACK PO SCH ×2 (10:25→20:16)
[2019-09-07] MEDS: meTOprolol SUCCINATE 100 MG (TOPROL XL) TAB PO SCH (10:25)
[2019-09-07] MEDS: FAMOTIDINE 20 MG (PEPCID) TABLET PO SCH ×2 (10:26→20:11)
[2019-09-07] MEDS: SENNOSIDES 8.6 MG (SENOKOT) TAB PO SCH ×2 (10:27→20:10)
--- NOTE | 2019-09-07 10:53 | Progress Note - Hospitalist ---
Subjective HPI/CC On Admission Date Seen by Provider: Sep 07, 2019 Time Seen by Provider: 09:50 Pt is a 64yoCF with a PMH of osteogenesis imperfecta who underwent TKA and quadriceps rupture repair last week. She was admitted to rehab following these surgeries but developed hypotension, fever, and tachycardia overnight and was transferred to the ICU. There was concern for sepsis and CXR and UA were done and were normal. Dr Gann and I examined her knee which does not appear to be infected and is healing well. CTA was done to rule out PE and was negative. It did not show any ground glasss opacities either. She does not have a cough and is on room air. This morning she states she is feeling better but still mentally foggy. No other complaints or concerns. Subjective/Events-last exam she denies any fevers or chills. She denies any shortness of breath. She still has a cough but it is not worsened. She says her nausea and vomiting has resolved. She denies any abdominal pain. She is not having any diarrhea. She has a rash on her buttocks. She says that it is uncomfortable and itchy. Objective Exam Vital Signs Vital Signs Date Time Temp Pulse Resp B/P (MAP) Pulse Ox O2 Delivery O2 Flow Rate FiO2 09/07/19 09:39 96 Room Air 09/07/19 08:28 36.5 96 19 125/62 (83) 09/05/19 04:00 09/04/19 09:50 30 Capillary Refill : Less Than 3 Seconds General Appearance: No Apparent Distress, Obese Respiratory: Lungs Clear, Normal Breath Sounds, No Respiratory Distress Cardiovascular: Regular Rate, Rhythm, No Edema, No Murmur Gastrointestinal: Normal Bowel Sounds, Non Tender, Soft Extremity: Normal Inspection, Non Tender, No Pedal Edema Neurologic/Psychiatric: Alert, Oriented x3, No Motor/Sensory Deficits, Normal Mood/Affect Skin: Rash (erythematous, sharply demarcated, some satellite lesions, located on the buttocks, thighs, and lower back) Results/Procedures Lab Laboratory Tests 09/07/19 06:06 Patient resulted labs reviewed. Imaging: Reviewed Imaging Report Assessment/Plan Assessment and Plan Assess & Plan/Chief Complaint Multifocal pneumonia Leukocytosis Pulmonology consulted, appreciate assistance Chest x-ray with bilateral infiltrates Extubated 09/03 COVID negative WBC increased to 16.3 today No obvious infectious source other than pneumonia Continue Merrem for pneumonia Candidiasis of skin begin Diflucan Nystatin cream Constipation Continue Zofran and Phenergan as needed Continue bowel regimen Anemia Hemoglobin 8.5, stable Continue to monitor s/p TKA and quadriceps repair Osteogenesis imperfecta Ortho consulted, appreciate recs PT/OT Likely transfer to inpatient rehabilitation today or tomorrow DVT prophylaxis: Lovenox Lactic acidosis, resolved Endotracheally intubated, resolved Severe sepsis, resolved Acute respiratory failure with hypoxia, resolved Nausea and vomiting, resolved Diagnosis/Problems Diagnosis/Problems (1) Severe sepsis Status: Resolved Resolution Date/Time: 09/05/19 @ 13:37 (2) Lactic acidosis Status: Resolved Resolution Date/Time: 09/05/19 @ 13:37 (3) Multifocal pneumonia Status: Acute (4) Quadriceps tendon rupture Status: Acute Qualifiers: Encounter type: subsequent encounter (5) Osteoarthritis of left knee Status: Chronic Qualifiers: Osteoarthritis type: primary Qualified Codes: M17.12 - Unilateral primary osteoarthritis, left knee (6) Acute respiratory failure with hypoxia Status: Resolved Resolution Date/Time: 09/06/19 @ 11:03 (7) Endotracheally intubated Status: Resolved Resolution Date/Time: 09/05/19 @ 13:37 (8) Candidiasis of skin Status: Acute Clinical Quality Measures DVT/VTE Risk/Contraindication: Risk Factor Score Per Nursin RFS Level Per Nursing on Admit: 4+=Very High JOANIE WAITE MD Sep 07, 2019 10:53
--- NOTE | 2019-09-07 11:04 | Physical Therapy Daily Note ---
PT Daily Note-Current Subjective Patient agrees to PT. Pain Numeric Pain Scale: 5-Moderate Pain Location: Left Location Body Site: Knee Pain Description: Acute Mental Status Patient Orientation: Normal For Age Attachments: Brooks Catheter Transfers SCALE: Activities may be completed with or without assistive devices. 9-Tduedhdvyz-rmlgvfe completes the activity by him/herself with no assistance from a helper. 5-Set-up or Clean-up Assistance-helper sets up or cleans up; patient completes activity. [place] assists only prior to or following the activity. 4-Supervision or Touching Assistance-helper provides verbal cues and/or touching/steadying and/or contact guard assistance as patient completes activity. Assistance may be provided throughout the activity or intermittently. 3-Partial/Moderate Assistance-helper does LESS THAN HALF the effort. [place] lifts, holds or supports trunk or limbs, but provides less than half the effort. 2-Substantial/Maximal Assistance-helper does MORE THAN HALF the effort. [place] lifts or holds trunk or limbs and provides more than half the effort. 5-Cqegbango-nuojuj does ALL the effort. Patient does none of the effort to complete the activity. Or, the assistance of 2 or more helpers is required for the patient to complete the activity. If activity was not attempted, code reason: 7-Patient Refused. 9-Not Applicable-not attempted and the patient did not perform the activity before the current illness, exacerbation or injury. 10-Not Attempted due to Environmental Limitations-(lack of equipment, weather restraints, etc.). 88-Not Attempted due to Medical Conditions or Safety Concerns. Sit to Stand (QC): 5 Weight Bearing Right Lower Extremity: Right Weight Bearing/Tolerated Left Lower Extremity: Left Weight Bearing/Tolerated Gait Training Does the Patient Walk?: Yes Distance: 30' Walk 10 feet (QC): 4 Walk 50 ft with 2 Turns(QC): 88 Walk 150 ft (QC): 88 Gait Assistive Device: FWW PWB left LE with knee brace in place/antalgic, step to gait sequence Assessment Patient reports dizziness with activity. Patient tolerates minimal activity and remains up in recliner with needs met. PT Senior Analytical Chemist Goals Senior Analytical Chemist Goals PT Senior Analytical Chemist Goals Time Frame: Sep 15, 2019 Roll Left & Right (QC): 6 Sit to Lying (QC): 6 Lying-Sitting on Side/Bed(QC): 6 Sit to Stand (QC): 6 Chair/Sed-qv-Tucdr Xfer(QC): 6 Toilet Transfer (QC): 6 Car Transfer (QC): 6 Does the Patient Walk: No and Walking Goal IS indicated Walk 10 feet (QC): 6 Walk 50ft with 2 Turns (QC): 6 Walk 150 ft (QC): 6 Walking 10ft on Uneven Surface: 6 1 Step (curb) (QC): 6 PT Plan Treatment/Plan Treatment Plan: Continue Plan of Care Treatment Plan: Bed Mobility, Education, Functional Activity Alexsandra, Functional Strength, Gait, Safety, Therapeutic Exercise, Transfers Treatment Duration: Sep 15, 2019 Frequency: 6 times per week Estimated Hrs Per Day: .25 hour per day Patient and/or Family Agrees t: Yes Time/GCodes Time In: 1037 Time Out: 1056 Total Billed Treatment Time: 19 Total Billed Treatment 1 visit GT 19 min WILVER GRIMM PT Sep 07, 2019 11:04
[2019-09-07 12:00] VITALS: BP 124/60
--- NOTE | 2019-09-07 12:34 | Cardiology Progress Note ---
Cardiology SOAP Progress Note Subjective: No cardiac complaints. Improving gradually. Objective: I&O/Vital Signs 09/07/19 09/07/19 09/07/19 09/07/19 01:00 02:42 03:36 07:06 Temp 36.4 Pulse 91 90 92 Resp 18 B/P (MAP) 127/73 (91) Pulse Ox 97 97 O2 Delivery Room Air Room Air 09/07/19 09/07/19 09/07/19 09/07/19 08:01 08:28 09:39 12:00 Temp 36.5 36.3 Pulse 96 79 Resp 19 19 B/P (MAP) 125/62 (83) 124/60 (81) Pulse Ox 96 96 96 O2 Delivery Room Air Room Air Room Air Room Air 09/07/19 00:00 Intake Total 1480 ml Output Total 1400 ml Balance 80 ml Weight (Pounds): 183 Weight (Ounces): 5.0 Weight (Calculated Kilograms): 83.080015 Constitutional: AAO x 3, well-developed, well-nourished Respiratory: chest expansion is symmetric, chest is bilaterally symmetric, other (good air entry) Cardiovascular: regular rate-rhythm; No JVD; S1 and S2 Gastrointestional: soft, audible bowel sounds Extremities: normal range of motion, non-tender, normal inspection, other (Brace to left leg), no lower extremity edema bilateral Neurologic/Psychiatric: other (moves all extremities; brace in place to left leg) Skin: normal color, warm/dry, rash on exposed areas (diffuse, red raised rash to coccyx and right hip); No ulcerations on exposed areas Results/Procedures: Labs Laboratory Tests 09/06/19 13:08: Glucometer 112H 09/06/19 18:19: Glucometer 129H 09/07/19 00:11: Glucometer 122H 09/07/19 06:06: White Blood Count 16.3H, Red Blood Count 2.98L, Hemoglobin 8.5L, Hematocrit 28L, Mean Corpuscular Volume 95, Mean Corpuscular Hemoglobin 29, Mean Corpuscular Hemoglobin Concent 30L, Red Cell Distribution Width 16.1H, Platelet Count 552H, Mean Platelet Volume 8.3, Neutrophils (%) (Auto) 75, Lymphocytes (%) (Auto) 15, Monocytes (%) (Auto) 8, Eosinophils (%) (Auto) 2, Basophils (%) (Auto) 0, Neutro phils # (Auto) 12.2H, Lymphocytes # (Auto) 2.4, Monocytes # (Auto) 1.2H, Eosinophils # (Auto) 0.4H, Basophils # (Auto) 0.0, Neutrophils % (Manual) 77, Lymphocytes % (Manual) 13, Monocytes % (Manual) 5, Eosinophils % (Manual) 3, Band Neutrophils 2, Polychromasia SLIGHT, Anisocytosis MODERATE, Erythrocyte Sedimentation Rate 81H, Sodium Level 140, Potassium Level 4.1, Chloride Level 104, Carbon Dioxide Level 27, Anion Gap 9, Blood Urea Nitrogen 10, Creatinine 0.59L, Estimat Glomerular Filtration Rate > 60, BUN/Creatinine Ratio 17, Glucose Level 103, Calcium Level 8.9, Phosphorus Level 3.0, Magnesium Level 2.1, C- Reactive Protein High Sensitivity 4.01H, Procalcitonin 2.65H 09/07/19 12:12: Glucometer 94 Microbiology 09/02/19 Blood Culture - Preliminary, Resulted No growth 09/02/19 Gram Stain - Final, Complete 09/02/19 Body Fluid Culture - Final, Complete No growth 09/02/19 Gram Stain - Final, Complete 09/02/19 Sputum Culture - Final, Complete Usual upper respiratory kelsey YEAST A/P: Assessment/Dx: Sepsis, Acute Respiratory failure, Mild CAD, History of PVCs, Nonsustained ventricular tachycardia Plan: No acute cardiac electrophysiology concerns. Patient has history of PVCs and nonsustained ventricular tachycardia with mild CAD and normal LV function. Already on high dose beta blockers. No acute arrhythmias during this hospitalization. Sinus tachycardia due to significant systemic illness. Which is now resolved. Keep potassium over 4 and magnesium over 2. Defer treatment of sepsis and acute respiratory failure to the primary team. Resolved. Thank you for your consultation. Please call me if you have any questions. Rafy Lewis MD, FACP, FACC, FSCAI, FHRS, CCDS Interventional Cardiology Cardiac Electrophysiology Vascular Medicine and Endovascular Interventions Dany LEWIS MD Sep 07, 2019 12:34
--- NOTE | 2019-09-07 12:53 | Occupational Ther Daily Note ---
OT Current Status-Daily Note Subjective Pt alert, sitting in recliner. Pt agrees to therapy. No c/o pain. Mental Status/Objective Patient Orientation: Person, Place, Time, Situation Attachments: IV, Telemetry ADL-Treatment Pt ambulated to bathroom using FWW with CGA for safety. Standing at sink, pt able to complete oral care for teeth and partial with SBA for safety. Pt c/o dizziness only at end of treatment. Pt takes increased time to complete all tasks. After session, pt sitting in recliner with call light/phone in reach. All needs met in room. Therapy Code Descriptions/Definitions Functional [place] Measure: 0=Not Assessed/NA 4=Minimal Assistance 1=Total Assistance 5=Supervision or Setup 2=Maximal Assistance 6=Modified Webster 3=Moderate Assistance 7=Complete IndependenceSCALE: Activities may be completed with or without assistive devices. 8-Gfvjdiocsa-kkizmyv completes the activity by him/herself with no assistance from a helper. 5-Set-up or Clean-up Assistance-helper sets up or cleans up; patient completes activity. [place] assists only prior to or following the activity. 4-Supervision or Touching Assistance-helper provides verbal cues and/or touching/steadying and/or contact guard assistance as patient completes activity. Assistance may be provided throughout the activity or intermittently. 3-Partial/Moderate Assistance-helper does LESS THAN HALF the effort. [place] lifts, holds or supports trunk or limbs, but provides less than half the effort. 2-Substantial/Maximal Assistance-helper does MORE THAN HALF the effort. [place] lifts or holds trunk or limbs and provides more than half the effort. 9-Exfocrdao-rnhipq does ALL the effort. Patient does none of the effort to complete the activity. Or, the assistance of 2 or more helpers is required for the patient to complete the activity. If activity was not attempted, code reason: 7-Patient Refused. 9-Not Applicable-not attempted and the patient did not perform the activity before the current illness, exacerbation or injury. 10-Not Attempted due to Environmental Limitations-(lack of equipment, weather restraints, etc.). 88-Not Attempted due to Medical Conditions or Safety Concerns. Oral Hygiene (QC): 4 OT Fdc Goals Fdc Goals Time Frame: Sep 15, 2019 Eating (QC): 6 Oral Hygiene (QC): 6 Toileting Hygiene (QC): 6 Shower/Bathe Self (QC): 6 Upper Body Dressing (QC): 6 Lower Body Dressing (QC): 6 On/Off Footwear (QC): 6 Additional Goals: 1-Demonstrate ADL Tasks, 2-Verbalize Understanding, 3- ImproveStrength/Alexsandra 1=Demonstrate adherence to instructed precautions during ADL tasks. 2=Patient will verbalize/demonstrate understanding of assistive devices/modifications for ADL. 3=Patient will improve strength/tolerance for activity to enable patient to perform ADL's. OT Education/Plan Problem List/Assessment Assessment: Decreased Activ Tolerance, Decreased UE Strength, Impaired Self- Care Skills Discharge Recommendations Plan/Recommendations: Continue POC Treatment Plan/Plan of Care Patient would benefit from OT for education, treatment and training to promote independence in ADL's, mobility, safety and/or upper extremity function for ADL's. Plan of Care: ADL Retraining, Functional Mobility Treatment Duration: Sep 15, 2019 Frequency: 5 times per week Estimated Hrs Per Day: .5 hour per day Agreement: Yes Rehab Potential: Good Time/GCodes Start Time: 11:35 Stop Time: 12:00 Total Time Billed (hr/min): 25 Billed Treatment Time 1 visit-ADL 2 (25 min) CARMINE BELTRAN Sep 07, 2019 12:53
--- NOTE | 2019-09-07 14:38 | Progress Note - Cardiology ---
Cardiology SOAP Progress Note Subjective: No cp or palp or syncope No focal weakness No n/v/d Gen weakness present Objective: I&O/Vital Signs 09/07/19 09/07/19 09/07/19 09/07/19 02:42 03:36 07:06 08:01 Temp 36.4 Pulse 90 92 Resp 18 B/P (MAP) 127/73 (91) Pulse Ox 97 97 O2 Delivery Room Air Room Air Room Air 09/07/19 09/07/19 09/07/19 09/07/19 08:28 09:39 12:00 13:00 Temp 36.5 36.3 Pulse 96 79 80 Resp 19 19 B/P (MAP) 125/62 (83) 124/60 (81) Pulse Ox 96 96 96 O2 Delivery Room Air Room Air Room Air 09/07/19 00:00 Intake Total 1480 ml Output Total 1400 ml Balance 80 ml Weight (Pounds): 183 Weight (Ounces): 5.0 Weight (Calculated Kilograms): 83.844342 Constitutional: AAO x 3, well-developed, well-nourished Respiratory: chest expansion is symmetric, chest is bilaterally symmetric, other (good air entry) Cardiovascular: regular rate-rhythm; No JVD; S1 and S2 Gastrointestional: soft, audible bowel sounds Extremities: normal range of motion, non-tender, normal inspection, other (Brac e to left leg), no lower extremity edema bilateral Neurologic/Psychiatric: other (moves all extremities; brace in place to left leg) Skin: normal color, warm/dry, rash on exposed areas (diffuse, red raised rash to coccyx and right hip); No ulcerations on exposed areas Results/Procedures: Labs Laboratory Tests 09/06/19 18:19: Glucometer 129H 09/07/19 00:11: Glucometer 122H 09/07/19 06:06: White Blood Count 16.3H, Red Blood Count 2.98L, Hemoglobin 8.5L, Hematocrit 28L, Mean Corpuscular Volume 95, Mean Corpuscular Hemoglobin 29, Mean Corpuscular He moglobin Concent 30L, Red Cell Distribution Width 16.1H, Platelet Count 552H, Mean Platelet Volume 8.3, Neutrophils (%) (Auto) 75, Lymphocytes (%) (Auto) 15, Monocytes (%) (Auto) 8, Eosinophils (%) (Auto) 2, Basophils (%) (Auto) 0, Neutr ophils # (Auto) 12.2H, Lymphocytes # (Auto) 2.4, Monocytes # (Auto) 1.2H, Eosinophils # (Auto) 0.4H, Basophils # (Auto) 0.0, Neutrophils % (Manual) 77, Lymphocytes % (Manual) 13, Monocytes % (Manual) 5, Eosinophils % (Manual) 3, Band Neutrophils 2, Polychromasia SLIGHT, Anisocytosis MODERATE, Erythrocyte Sedimentation Rate 81H, Sodium Level 140, Potassium Level 4.1, Chloride Level 104, Carbon Dioxide Level 27, Anion Gap 9, Blood Urea Nitrogen 10, Creatinine 0.59L, Estimat Glomerular Filtration Rate > 60, BUN/Creatinine Ratio 17, Glucose Level 103, Calcium Level 8.9, Phosphorus Level 3.0, Magnesium Level 2.1, C- Reactive Protein High Sensitivity 4.01H, Procalcitonin 2.65H 09/07/19 12:12: Glucometer 94 Microbiology 09/02/19 Blood Culture - Preliminary, Resulted No growth 09/02/19 Gram Stain - Final, Complete 09/02/19 Body Fluid Culture - Final, Complete No growth 09/02/19 Gram Stain - Final, Complete 09/02/19 Sputum Culture - Final, Complete Usual upper respiratory kelsey YEAST Laboratory Tests 09/06/19 07:25 09/07/19 06:06 A/P: Assessment: Ac resp failure (with transient hypoxia) - extubated on 09-04-2019 Septic shock post surgery (hypotension now resolved) s/p L total knee arthroplasty on 08/22/19 and quadriceps tendon repair on 08/24/19 Severe, post-op anemia - improved - management per medical services Intermittent sinus tach during this hospitalization Left bundle branch block, chronic History of cardiac catheterization in 2013: mild coronary artery disease; last MPI in March 2019 showing no significant ischemia or infarction, ejection fraction 78 percent. Echo 09/02/19 (Dr Willingham): LVEF 45-50%, no RWMA, mod TR, PASP 40-45 mmHg History of isolated PVCs and few brief runs of nonsustained ventricular tachycardia, she was seen by Dr. Marie and Dr. Lewis as an outpatient. Hyperlipidemia, treated with Lipitor History of mild carotid stenosis H/o tobacco use Plan: * BP and HR improved after increase dose of BB * Continue current cardiac regimen * Monitor and correct labs JUANJO MARCIAL MD FACP FAC CCDS Sep 07, 2019 14:38
[2019-09-07 16:00] VITALS: BP 144/83
[2019-09-07] MEDS: NYSTATIN CREAM (MYCOSTATIN) 30 GM TUBE TP SCH ×2 (16:48→19:59)
[2019-09-07 19:48] VITALS: BP 125/73
[2019-09-07] MEDS: IBUPROFEN 600 MG (MOTRIN) TAB PO PRN (20:11)
[2019-09-07] MEDS: CALCIUM CARBONATE 500 MG (TUMS) TAB.CHEW PO PRN (23:00)
[2019-09-08] VITALS (7 sets, daily range): BP systolic 95–145; BP diastolic 47–77
[2019-09-08] MEDS: RT-ALBUTEROL INHALER HFA (VENTOLIN HFA) 8 GM IH SCH ×4 (02:56→21:15)
[2019-09-08] MEDS: MEROPENEM 500 MG/SWFI 10 ML IV PUSH IV SCH ×8 (03:11→21:15)
[2019-09-08 06:07] LABS: BASOPHILS # (AUTO) 0.1 10^3/uL (0.0-0.1); BASOPHILS % (AUTO) 0 % (0-10); EOSINOPHILS # (AUTO) 0.4 10^3/uL (0.0-0.3); EOSINOPHILS % (AUTO) 3 % (0-10); HEMATOCRIT 28 % (35-52); HEMOGLOBIN 8.3 G/DL (11.5-16.0); LYMPHOCYTES # (AUTO) 2.6 X 10^3 (1.0-4.0); LYMPHOCYTES % (AUTO) 23 % (12-44); MEAN CORPUSCULAR HEMOGLOBIN 29 PG (25-34); MEAN CORPUSCULAR HGB CONC 30 G/DL (32-36); MEAN CORPUSCULAR VOLUME 96 FL (80-99); MEAN PLATELET VOLUME 8.6 FL (7.4-10.4); MONOCYTES # (AUTO) 1.1 X 10^3 (0.0-1.0); MONOCYTES % (AUTO) 9 % (0-12); NEUTROPHILS # (AUTO) 7.2 X 10^3 (1.8-7.8); NEUTROPHILS % (AUTO) 64 % (42-75); PLATELET COUNT 574 10^3/uL (130-400); RED CELL DISTRIBUTION WIDTH 16.5 % (10.0-14.5); WHITE BLOOD COUNT 11.2 10^3/uL (4.3-11.0)
[2019-09-08] MEDS: ENOXAPARIN 40 MG/0.4 ML (LOVENOX) SYR SC SCH (06:08)
[2019-09-08 06:19] LABS: CHLORIDE 103 MMOL/L (98-107); SODIUM 140 MMOL/L (135-145)
[2019-09-08 06:20] LABS: CALCIUM 9.3 MG/DL (8.5-10.1)
[2019-09-08 06:21] LABS: GLUCOSE 98 MG/DL (70-105)
[2019-09-08 06:23] LABS: CARBON DIOXIDE 28 MMOL/L (21-32)
[2019-09-08 06:25] LABS: CREATININE SERUM 0.63 MG/DL (0.60-1.30); GFR ESTIMATED > 60; PHOSPHORUS 4.3 MG/DL (2.3-4.7)
[2019-09-08 06:26] LABS: BUN/CREATININE RATIO 24
[2019-09-08 06:27] LABS: MAGNESIUM 2.2 MG/DL (1.6-2.4)
--- NOTE | 2019-09-08 07:53 | Progress Note ---
Standard Progress Note Progress Notes/Assess & Plan Date Seen by a Provider: Sep 08, 2019 Time Seen by a Provider: 07:52 Progress/Assessment & Plan feeling much better today. Denies knee pain Vital Signs Date Time Temp Pulse Resp B/P (MAP) Pulse Ox O2 Delivery O2 Flow Rate FiO2 09/01/19 06:00 84 20 109/68 (82) 99 Nasal Cannula 2.00 09/01/19 05:00 83 18 104/63 (77) 100 Nasal Cannula 2.00 09/01/19 04:00 86 18 75/55 (62) 98 Nasal Cannula 2.00 09/01/19 04:00 37.2 09/01/19 04:00 94 Nasal Cannula 2.00 09/01/19 03:00 93 20 84/44 (57) 100 Nasal Cannula 2.00 09/01/19 02:00 100 18 95/56 (69) 91 Nasal Cannula 2.00 09/01/19 01:00 106 09/01/19 01:00 106 16 98/59 (72) 94 Nasal Cannula 2.00 09/01/19 00:49 36.7 Nasal Cannula 2.00 09/01/19 00:00 94 Nasal Cannula 2.00 09/01/19 00:00 115 18 100/57 (71) 96 Room Air 08/31/19 23:00 117 23 129/60 (83) 92 Room Air 08/31/19 23:00 37.7 08/31/19 22:30 120 22 125/67 (86) 94 Room Air 08/31/19 22:15 120 23 123/63 (83) 92 Room Air 08/31/19 22:00 121 16 124/64 (84) 92 Room Air 08/31/19 21:45 147 17 128/66 (86) 96 Room Air 08/31/19 21:30 39.0 08/31/19 21:30 148 I & O 09/01/19 07:00 Intake Total 670 ml Output Total 850 ml Balance -180 ml Laboratory Tests Test 08/31/19 21:55 08/31/19 23:10 09/01/19 01:30 Range/Units Blood Gas Puncture Site LEFT RADIAL Blood Gas Patient Temperature 39.0 Arterial Blood pH 7.47 H 7.37-7.43 Arterial Blood Partial Pressure CO2 31 L 35-45 MMHG Arterial Blood Partial Pressure O2 83 79-93 MMHG Arterial Blood HCO3 21 L 23-27 MMOL/L Arterial Blood Total CO2 22.1 21.0-31.0 MMOL/L Arterial Blood Oxygen Saturation 96 94-100 % Arterial Blood Base Excess -1.6 -2.5-2.5 MMOL/L Can Test POSITIVE Blood Gas Ventilator Setting NO Blood Gas Inspired Oxygen RA Lactic Acid Level 2.77 *H 1.47 0.50-2.00 MMOL/L White Blood Count 12.6 H 4.3-11.0 10^3/uL Red Blood Count 2.87 L 4.35-5.85 10^6/uL Hemoglobin 8.3 L 11.5-16.0 G/DL Hematocrit 27 L 35-52 % Mean Corpuscular Volume 92 80-99 FL Mean Corpuscular Hemoglobin 29 25-34 PG Mean Corpuscular Hemoglobin Concent 31 L 32-36 G/DL Red Cell Distribution Width 15.9 H 10.0-14.5 % Platelet Count 302 130-400 10^3/uL Mean Platelet Volume 8.5 7.4-10.4 FL Neutrophils (%) (Auto) 96 H 42-75 % Lymphocytes (%) (Auto) 3 L 12-44 % Monocytes (%) (Auto) 1 0-12 % Eosinophils (%) (Auto) 0 0-10 % Basophils (%) (Auto) 0 0-10 % Neutrophils # (Auto) 12.1 H 1.8-7.8 X 10^3 Lymphocytes # (Auto) 0.4 L 1.0-4.0 X 10^3 Monocytes # (Auto) 0.1 0.0-1.0 X 10^3 Eosinophils # (Auto) 0.0 0.0-0.3 10^3/uL Basophils # (Auto) 0.0 0.0-0.1 10^3/uL Sodium Level 134 L 135-145 MMOL/L Potassium Level 3.1 L 3.6-5.0 MMOL/L Chloride Level 101 98-107 MMOL/L Carbon Dioxide Level 20 L 21-32 MMOL/L Anion Gap 13 5-14 MMOL/L Blood Urea Nitrogen 14 7-18 MG/DL Creatinine 0.96 0.60-1.30 MG/DL Estimat Glomerular Filtration Rate 59 BUN/Creatinine Ratio 15 Glucose Level 108 H 70-105 MG/DL Calcium Level 8.7 8.5-10.1 MG/DL Phosphorus Level 2.2 L 2.3-4.7 MG/DL Magnesium Level 1.8 1.6-2.4 MG/DL L knee incision clean and dry without erythema or warmth. echymosis present. no calf tenderness. Neg Shawn's s/p L TKA with subsequent quad rupture and repair i do not believe the knee is the source of the patient's decompensation. Ok to continue PT from my standpoint Final Diagnosis feeling better and stronger. Denies knee pain LLE--incision well healed without erythema or warmth s/p LTKA with quad repair IRU for PT/OT when medically able REFUGIO MANZANARES MD Sep 08, 2019 07:53
[2019-09-08] MEDS: fluCOnazole (DIFLUCAN) 100 MG TAB PO SCH (08:13)
[2019-09-08] MEDS: DOCUSATE SODIUM 100 MG (COLACE) CAP PO SCH ×2 (08:13→21:00)
[2019-09-08] MEDS: FAMOTIDINE 20 MG (PEPCID) TABLET PO SCH ×2 (08:13→21:16)
[2019-09-08] MEDS: meTOprolol SUCCINATE 100 MG (TOPROL XL) TAB PO SCH (08:13)
[2019-09-08] MEDS: SENNOSIDES 8.6 MG (SENOKOT) TAB PO SCH ×2 (08:13→21:15)
[2019-09-08] MEDS: polyethylene glycoL POWDER 17 GM (MIRALAX) PACK PO SCH ×2 (08:14→21:04)
[2019-09-08] MEDS: NYSTATIN CREAM (MYCOSTATIN) 30 GM TUBE TP SCH ×3 (08:14→21:15)
--- NOTE | 2019-09-08 10:35 | Physical Therapy Daily Note ---
PT Daily Note-Current Subjective Patient agrees to PT. No c/o. Mental Status Patient Orientation: Normal For Age Transfers SCALE: Activities may be completed with or without assistive devices. 4-Gegxmomvoa-qrxahpv completes the activity by him/herself with no assistance from a helper. 5-Set-up or Clean-up Assistance-helper sets up or cleans up; patient completes activity. [place] assists only prior to or following the activity. 4-Supervision or Touching Assistance-helper provides verbal cues and/or touching/steadying and/or contact guard assistance as patient completes activity. Assistance may be provided throughout the activity or intermittently. 3-Partial/Moderate Assistance-helper does LESS THAN HALF the effort. [place] lifts, holds or supports trunk or limbs, but provides less than half the effort. 2-Substantial/Maximal Assistance-helper does MORE THAN HALF the effort. [place] lifts or holds trunk or limbs and provides more than half the effort. 6-Lypeggkcp-onaddz does ALL the effort. Patient does none of the effort to c omplete the activity. Or, the assistance of 2 or more helpers is required for the patient to complete the activity. If activity was not attempted, code reason: 7-Patient Refused. 9-Not Applicable-not attempted and the patient did not perform the activity before the current illness, exacerbation or injury. 10-Not Attempted due to Environmental Limitations-(lack of equipment, weather restraints, etc.). 88-Not Attempted due to Medical Conditions or Safety Concerns. Sit to Stand (QC): 5 Weight Bearing Right Lower Extremity: Right Weight Bearing/Tolerated Left Lower Extremity: Left Weight Bearing/Tolerated Gait Training Does the Patient Walk?: Yes Distance: 150' Walk 10 feet (QC): 5 Walk 50 ft with 2 Turns(QC): 5 Walk 150 ft (QC): 5 Gait Assistive Device: FWW steady gait pattern Assessment Patient tolerated treatment well and remains up in recliner. PT Retirement Goals Retirement Goals PT Language Instructor Goals Time Frame: Sep 15, 2019 Roll Left & Right (QC): 6 Sit to Lying (QC): 6 Lying-Sitting on Side/Bed(QC): 6 Sit to Stand (QC): 6 Chair/Muq-ax-Ufgsv Xfer(QC): 6 Toilet Transfer (QC): 6 Car Transfer (QC): 6 Does the Patient Walk: No and Walking Goal IS indicated Walk 10 feet (QC): 6 Walk 50ft with 2 Turns (QC): 6 Walk 150 ft (QC): 6 Walking 10ft on Uneven Surface: 6 1 Step (curb) (QC): 6 PT Plan Treatment/Plan Treatment Plan: Continue Plan of Care Treatment Plan: Bed Mobility, Education, Functional Activity Alexsandra, Functional Strength, Gait, Safety, Therapeutic Exercise, Transfers Treatment Duration: Sep 15, 2019 Frequency: 6 times per week Estimated Hrs Per Day: .25 hour per day Patient and/or Family Agrees t: Yes Time/GCodes Time In: 1020 Time Out: 1030 Total Billed Treatment Time: 10 Total Billed Treatment 1 visit GT 10 min WILVER GRIMM PT Sep 08, 2019 10:35
--- NOTE | 2019-09-08 11:07 | Progress Note - Hospitalist ---
Subjective HPI/CC On Admission Date Seen by Provider: Sep 08, 2019 Time Seen by Provider: 09:10 Pt is a 64yoCF with a PMH of osteogenesis imperfecta who underwent TKA and quadriceps rupture repair last week. She was admitted to rehab following these surgeries but developed hypotension, fever, and tachycardia overnight and was transferred to the ICU. There was concern for sepsis and CXR and UA were done and were normal. Dr Gann and I examined her knee which does not appear to be infected and is healing well. CTA was done to rule out PE and was negative. It did not show any ground glasss opacities either. She does not have a cough and is on room air. This morning she states she is feeling better but still mentally foggy. No other complaints or concerns. Subjective/Events-last exam She has no complaints or concerns this morning. She denies any fevers or chills. She denies any shortness of breath or cough. She denies any nausea or vomiting. She denies any knee pain. She has been working with physical therapy. She feels like her rash is improving. Objective Exam Vital Signs Vital Signs Date Time Temp Pulse Resp B/P (MAP) Pulse Ox O2 Delivery O2 Flow Rate FiO2 09/08/19 07:50 36.5 81 19 139/66 (90) 97 Room Air 09/07/19 19:20 0.00 09/04/19 09:50 30 Capillary Refill : Less Than 3 Seconds General Appearance: No Apparent Distress, Obese Respiratory: Lungs Clear, Normal Breath Sounds, No Respiratory Distress Cardiovascular: Regular Rate, Rhythm, No Edema, No Murmur Gastrointestinal: Normal Bowel Sounds, Non Tender, Soft Extremity: Normal Inspection, Non Tender, No Pedal Edema Neurologic/Psychiatric: Alert, Oriented x3, No Motor/Sensory Deficits, Normal Mood/Affect Skin: Warm/Dry, Rash Results/Procedures Lab Laboratory Tests 09/08/19 05:34 Patient resulted labs reviewed. Assessment/Plan Assessment and Plan Assess & Plan/Chief Complaint Multifocal pneumonia Extubated 09/03 COVID negative Continue Merrem for pneumonia Candidiasis of skin Continue Diflucan Nystatin cream Constipation Continue Zofran and Phenergan as needed Continue bowel regimen Anemia Hemoglobin 8.3, stable Continue to monitor s/p TKA and quadriceps repair Osteogenesis imperfecta Ortho consulted, appreciate recs PT/OT Awaiting insurance approval for transfer to inpatient rehabilitation DVT prophylaxis: Lovenox Lactic acidosis, resolved Endotracheally intubated, resolved Severe sepsis, resolved Acute respiratory failure with hypoxia, resolved Nausea and vomiting, resolved Leukocytosis, resolved Diagnosis/Problems Diagnosis/Problems (1) Severe sepsis Status: Resolved Resolution Date/Time: 09/05/19 @ 13:37 (2) Lactic acidosis Status: Resolved Resolution Date/Time: 09/05/19 @ 13:37 (3) Multifocal pneumonia Status: Acute (4) Quadriceps tendon rupture Status: Acute Qualifiers: Encounter type: subsequent encounter (5) Osteoarthritis of left knee Status: Chronic Qualifiers: Osteoarthritis type: primary Qualified Codes: M17.12 - Unilateral primary osteoarthritis, left knee (6) Acute respiratory failure with hypoxia Status: Resolved Resolution Date/Time: 09/06/19 @ 11:03 (7) Endotracheally intubated Status: Resolved Resolution Date/Time: 09/05/19 @ 13:37 (8) Candidiasis of skin Status: Acute Clinical Quality Measures DVT/VTE Risk/Contraindication: Risk Factor Score Per Nursin RFS Level Per Nursing on Admit: 4+=Very High JOANIE WAITE MD Sep 08, 2019 11:07
[2019-09-08] MEDS: MELATONIN 3 MG TABLET PO PRN (21:15)
[2019-09-08] MEDS: IBUPROFEN 600 MG (MOTRIN) TAB PO PRN (21:16)
--- NOTE | 2019-09-08 21:18 | Cardiology Progress Note ---
Cardiology SOAP Progress Note Subjective: No cardiac complaints. Objective: I&O/Vital Signs 09/10/19 09/10/19 09/10/19 09/10/19 07:00 08:00 08:00 08:02 Temp 36.4 Pulse 97 86 Resp 20 B/P (MAP) 121/79 (93) Pulse Ox 98 96 O2 Delivery Room Air Room Air Room Air 09/10/19 09/10/19 12:16 12:36 Temp 36.0 Pulse 96 100 Resp 20 B/P (MAP) 145/81 (102) Pulse Ox 99 O2 Delivery Room Air 09/10/19 00:00 Intake Total 1980 ml Balance 1980 ml Weight (Pounds): 183 Weight (Ounces): 5.0 Weight (Calculated Kilograms): 83.275538 Constitutional: AAO x 3, well-developed, well-nourished Respiratory: chest expansion is symmetric, chest is bilaterally symmetric, other (good air entry) Cardiovascular: regular rate-rhythm; No JVD; S1 and S2 Gastrointestional: soft, audible bowel sounds Extremities: normal range of motion, non-tender, normal inspection, other (Brace to left leg), no lower extremity edema bilateral Neurologic/Psychiatric: other (moves all extremities; brace in place to left leg) Skin: normal color, warm/dry, rash on exposed areas (diffuse, red raised rash to coccyx and right hip); No ulcerations on exposed areas Results/Procedures: Labs Laboratory Tests 09/10/19 05:15: White Blood Count 8.5, Red Blood Count 3.24L, Hemoglobin 9.4L, Hematocrit 31L, Mean Corpuscular Volume 95, Mean Corpuscular Hemoglobin 29, Mean Corpuscular Hemoglobin Concent 30L, Red Cell Distribution Width 16.6H, Platelet Count 609H, Mean Platelet Volume 8.6, Neutrophils (%) (Auto) 59, Lymphocytes (%) (Auto) 28, Monocytes (%) (Auto) 11, Eosinophils (%) (Auto) 2, Basophils (%) (Auto) 0, Neutrophils # (Auto) 5.0, Lymphocytes # (Auto) 2.3, Monocytes # (Auto) 0.9, Eosinophils # (Auto) 0.2, Basophils # (Auto) 0.0, Sodium Level 139, Potassium Level 4.2, Chloride Level 101, Carbon Dioxide Level 24, Anion Gap 14, Blood Urea Nitrogen 15, Creatinine 0.72, Estimat Glomerular Filtration Rate > 60, BUN/Creatinine Ratio 21, Glucose Level 99, Calcium Level 9.3, Phosphorus Level 3.9, Magnesium Level 2.2 Microbiology 09/02/19 Blood Culture - Final, Complete No growth 09/02/19 Gram Stain - Final, Complete 09/02/19 Body Fluid Culture - Final, Complete No growth 09/02/19 Gram Stain - Final, Complete 09/02/19 Sputum Culture - Final, Complete Usual upper respiratory kelsey YEAST A/P: Assessment/Dx: Sepsis, Acute Respiratory failure, Mild CAD, History of PVCs, Nonsustained ventricular tachycardia Plan: Patient has history of PVCs and nonsustained ventricular tachycardia with mild CAD and normal LV function. Already on high dose beta blockers. No acute arrhythmias during this hospitalization. Sinus tachycardia due to significant systemic illness. Which is now resolved. Keep potassium over 4 and magnesium over 2. Defer treatment of sepsis and acute respiratory failure to the primary team. Resolved. Thank you for your consultation. Please call me if you have any questions. Rafy Lewis MD, FACP, FACC, FSCAI, FHRS, CCDS Interventional Cardiology Cardiac Electrophysiology Vascular Medicine and Endovascular Interventions Dany LEWIS MD Sep 08, 2019 21:18
[2019-09-08] MEDS: CALCIUM CARBONATE 500 MG (TUMS) TAB.CHEW PO PRN (23:25)
[2019-09-09] MEDS: RT-ALBUTEROL INHALER HFA (VENTOLIN HFA) 8 GM IH SCH ×3 (03:14→21:18)
[2019-09-09] MEDS: MEROPENEM 500 MG/SWFI 10 ML IV PUSH IV SCH ×8 (03:28→21:17)
[2019-09-09 03:44] VITALS: BP 122/65
[2019-09-09] MEDS: diphenhydrAMINE 25 MG TAB (BENADRYL) PO PRN ×2 (03:59→23:30)
[2019-09-09 06:10] LABS: BASOPHILS % (AUTO) 0 % (0-10); EOSINOPHILS # (AUTO) 0.3 10^3/uL (0.0-0.3); EOSINOPHILS % (AUTO) 3 % (0-10); HEMATOCRIT 28 % (35-52); HEMOGLOBIN 8.5 G/DL (11.5-16.0); LYMPHOCYTES # (AUTO) 2.2 X 10^3 (1.0-4.0); LYMPHOCYTES % (AUTO) 24 % (12-44); MEAN CORPUSCULAR HEMOGLOBIN 29 PG (25-34); MEAN CORPUSCULAR HGB CONC 30 G/DL (32-36); MEAN CORPUSCULAR VOLUME 96 FL (80-99); MEAN PLATELET VOLUME 8.1 FL (7.4-10.4); MONOCYTES # (AUTO) 0.8 X 10^3 (0.0-1.0); MONOCYTES % (AUTO) 9 % (0-12); NEUTROPHILS # (AUTO) 5.9 X 10^3 (1.8-7.8); NEUTROPHILS % (AUTO) 64 % (42-75); PLATELET COUNT 551 10^3/uL (130-400); RED CELL DISTRIBUTION WIDTH 16.9 % (10.0-14.5); WHITE BLOOD COUNT 9.2 10^3/uL (4.3-11.0)
[2019-09-09 06:42] LABS: BUN/CREATININE RATIO 25; CALCIUM 9.2 MG/DL (8.5-10.1); CARBON DIOXIDE 23 MMOL/L (21-32); CHLORIDE 104 MMOL/L (98-107); CREATININE SERUM 0.64 MG/DL (0.60-1.30); GFR ESTIMATED > 60; GLUCOSE 108 MG/DL (70-105); MAGNESIUM 2.2 MG/DL (1.6-2.4); PHOSPHORUS 4.3 MG/DL (2.3-4.7); POTASSIUM 4.4 MMOL/L (3.6-5.0); SODIUM 139 MMOL/L (135-145)
[2019-09-09] MEDS: ENOXAPARIN 40 MG/0.4 ML (LOVENOX) SYR SC SCH (07:05)
[2019-09-09 08:00] VITALS: BP 137/80
--- NOTE | 2019-09-09 08:05 | Progress Note ---
Standard Progress Note Progress Notes/Assess & Plan Date Seen by a Provider: Sep 09, 2019 Time Seen by a Provider: 08:03 Progress/Assessment & Plan feeling much better today. Denies knee pain Vital Signs Date Time Temp Pulse Resp B/P (MAP) Pulse Ox O2 Delivery O2 Flow Rate FiO2 09/01/19 06:00 84 20 109/68 (82) 99 Nasal Cannula 2.00 09/01/19 05:00 83 18 104/63 (77) 100 Nasal Cannula 2.00 09/01/19 04:00 86 18 75/55 (62) 98 Nasal Cannula 2.00 09/01/19 04:00 37.2 09/01/19 04:00 94 Nasal Cannula 2.00 09/01/19 03:00 93 20 84/44 (57) 100 Nasal Cannula 2.00 09/01/19 02:00 100 18 95/56 (69) 91 Nasal Cannula 2.00 09/01/19 01:00 106 09/01/19 01:00 106 16 98/59 (72) 94 Nasal Cannula 2.00 09/01/19 00:49 36.7 Nasal Cannula 2.00 09/01/19 00:00 94 Nasal Cannula 2.00 09/01/19 00:00 115 18 100/57 (71) 96 Room Air 08/31/19 23:00 117 23 129/60 (83) 92 Room Air 08/31/19 23:00 37.7 08/31/19 22:30 120 22 125/67 (86) 94 Room Air 08/31/19 22:15 120 23 123/63 (83) 92 Room Air 08/31/19 22:00 121 16 124/64 (84) 92 Room Air 08/31/19 21:45 147 17 128/66 (86) 96 Room Air 08/31/19 21:30 39.0 08/31/19 21:30 148 I & O 09/01/19 07:00 Intake Total 670 ml Output Total 850 ml Balance -180 ml Laboratory Tests Test 08/31/19 21:55 08/31/19 23:10 09/01/19 01:30 Range/Units Blood Gas Puncture Site LEFT RADIAL Blood Gas Patient Temperature 39.0 Arterial Blood pH 7.47 H 7.37-7.43 Arterial Blood Partial Pressure CO2 31 L 35-45 MMHG Arterial Blood Partial Pressure O2 83 79-93 MMHG Arterial Blood HCO3 21 L 23-27 MMOL/L Arterial Blood Total CO2 22.1 21.0-31.0 MMOL/L Arterial Blood Oxygen Saturation 96 94-100 % Arterial Blood Base Excess -1.6 -2.5-2.5 MMOL/L Can Test POSITIVE Blood Gas Ventilator Setting NO Blood Gas Inspired Oxygen RA Lactic Acid Level 2.77 *H 1.47 0.50-2.00 MMOL/L White Blood Count 12.6 H 4.3-11.0 10^3/uL Red Blood Count 2.87 L 4.35-5.85 10^6/uL Hemoglobin 8.3 L 11.5-16.0 G/DL Hematocrit 27 L 35-52 % Mean Corpuscular Volume 92 80-99 FL Mean Corpuscular Hemoglobin 29 25-34 PG Mean Corpuscular Hemoglobin Concent 31 L 32-36 G/DL Red Cell Distribution Width 15.9 H 10.0-14.5 % Platelet Count 302 130-400 10^3/uL Mean Platelet Volume 8.5 7.4-10.4 FL Neutrophils (%) (Auto) 96 H 42-75 % Lymphocytes (%) (Auto) 3 L 12-44 % Monocytes (%) (Auto) 1 0-12 % Eosinophils (%) (Auto) 0 0-10 % Basophils (%) (Auto) 0 0-10 % Neutrophils # (Auto) 12.1 H 1.8-7.8 X 10^3 Lymphocytes # (Auto) 0.4 L 1.0-4.0 X 10^3 Monocytes # (Auto) 0.1 0.0-1.0 X 10^3 Eosinophils # (Auto) 0.0 0.0-0.3 10^3/uL Basophils # (Auto) 0.0 0.0-0.1 10^3/uL Sodium Level 134 L 135-145 MMOL/L Potassium Level 3.1 L 3.6-5.0 MMOL/L Chloride Level 101 98-107 MMOL/L Carbon Dioxide Level 20 L 21-32 MMOL/L Anion Gap 13 5-14 MMOL/L Blood Urea Nitrogen 14 7-18 MG/DL Creatinine 0.96 0.60-1.30 MG/DL Estimat Glomerular Filtration Rate 59 BUN/Creatinine Ratio 15 Glucose Level 108 H 70-105 MG/DL Calcium Level 8.7 8.5-10.1 MG/DL Phosphorus Level 2.2 L 2.3-4.7 MG/DL Magnesium Level 1.8 1.6-2.4 MG/DL L knee incision clean and dry without erythema or warmth. echymosis present. no calf tenderness. Neg Shawn's s/p L TKA with subsequent quad rupture and repair i do not believe the knee is the source of the patient's decompensation. Ok to continue PT from my standpoint Final Diagnosis no knee complaints Vital Signs Date Time Temp Pulse Resp B/P (MAP) Pulse Ox O2 Delivery O2 Flow Rate FiO2 09/09/19 07:00 101 09/09/19 03:44 37.5 89 20 122/65 (84) 98 Room Air 09/09/19 03:14 96 Room Air 09/09/19 01:00 91 09/08/19 23:31 36.8 91 20 120/77 (91) 98 Room Air 09/08/19 21:15 96 Room Air 09/08/19 20:01 36.6 94 20 145/68 (93) 94 Room Air 09/08/19 20:00 Room Air 09/08/19 19:00 98 09/08/19 15:54 37.1 90 20 133/59 (83) 96 Room Air 09/08/19 14:48 98 Room Air 09/08/19 12:33 36.5 79 19 126/60 (82) 92 Room Air 09/08/19 12:13 85 I & O 09/09/19 07:00 Intake Total 1840 ml Balance 1840 ml Laboratory Tests Test 09/08/19 12:14 09/08/19 18:24 09/08/19 23:32 09/09/19 05:46 Range/Units Glucometer 103 105 140 H 112 H 70-110 MG/DL Test 09/09/19 06:05 Range/Units White Blood Count 9.2 4.3-11.0 10^3/uL Red Blood Count 2.94 L 4.35-5.85 10^6/uL Hemoglobin 8.5 L 11.5-16.0 G/DL Hematocrit 28 L 35-52 % Mean Corpuscular Volume 96 80-99 FL Mean Corpuscular Hemoglobin 29 25-34 PG Mean Corpuscular Hemoglobin Concent 30 L 32-36 G/DL Red Cell Distribution Width 16.9 H 10.0-14.5 % Platelet Count 551 H 130-400 10^3/uL Mean Platelet Volume 8.1 7.4-10.4 FL Neutrophils (%) (Auto) 64 42-75 % Lymphocytes (%) (Auto) 24 12-44 % Monocytes (%) (Auto) 9 0-12 % Eosinophils (%) (Auto) 3 0-10 % Basophils (%) (Auto) 0 0-10 % Neutrophils # (Auto) 5.9 1.8-7.8 X 10^3 Lymphocytes # (Auto) 2.2 1.0-4.0 X 10^3 Monocytes # (Auto) 0.8 0.0-1.0 X 10^3 Eosinophils # (Auto) 0.3 0.0-0.3 10^3/uL Basophils # (Auto) 0.0 0.0-0.1 10^3/uL Sodium Level 139 135-145 MMOL/L Potassium Level 4.4 3.6-5.0 MMOL/L Chloride Level 104 98-107 MMOL/L Carbon Dioxide Level 23 21-32 MMOL/L Anion Gap 12 5-14 MMOL/L Blood Urea Nitrogen 16 7-18 MG/DL Creatinine 0.64 0.60-1.30 MG/DL Estimat Glomerular Filtration Rate > 60 BUN/Creatinine Ratio 25 Glucose Level 108 H 70-105 MG/DL Calcium Level 9.2 8.5-10.1 MG/DL Phosphorus Level 4.3 2.3-4.7 MG/DL Magnesium Level 2.2 1.6-2.4 MG/DL L knee without erythema or warmth s/p L TKA with quad repair patient may elect to go home as opposed to IRU will follow up as outpatient if DCed REFUGIO MANZANARES MD Sep 09, 2019 08:04
[2019-09-09] MEDS: meTOprolol SUCCINATE 100 MG (TOPROL XL) TAB PO SCH (08:10)
[2019-09-09] MEDS: fluCOnazole (DIFLUCAN) 100 MG TAB PO SCH (08:10)
[2019-09-09] MEDS: DOCUSATE SODIUM 100 MG (COLACE) CAP PO SCH ×2 (08:10→21:15)
[2019-09-09] MEDS: FAMOTIDINE 20 MG (PEPCID) TABLET PO SCH ×2 (08:10→21:17)
[2019-09-09] MEDS: SENNOSIDES 8.6 MG (SENOKOT) TAB PO SCH ×2 (08:11→21:17)
[2019-09-09] MEDS: NYSTATIN CREAM (MYCOSTATIN) 30 GM TUBE TP SCH ×3 (08:11→21:17)
[2019-09-09] MEDS: polyethylene glycoL POWDER 17 GM (MIRALAX) PACK PO SCH ×2 (08:11→21:15)
--- NOTE | 2019-09-09 09:00 | NUR ---
NEW ORDERS TO STOP ACCUCHECK OER DR. WAITE.
[2019-09-09 10:42] VITALS: BP 137/80
--- NOTE | 2019-09-09 11:40 | Progress Note - Hospitalist ---
Subjective HPI/CC On Admission Date Seen by Provider: Sep 09, 2019 Time Seen by Provider: 09:45 Pt is a 64yoCF with a PMH of osteogenesis imperfecta who underwent TKA and quadriceps rupture repair last week. She was admitted to rehab following these surgeries but developed hypotension, fever, and tachycardia overnight and was transferred to the ICU. There was concern for sepsis and CXR and UA were done and were normal. Dr Gann and I examined her knee which does not appear to be infected and is healing well. CTA was done to rule out PE and was negative. It did not show any ground glasss opacities either. She does not have a cough and is on room air. This morning she states she is feeling better but still mentally foggy. No other complaints or concerns. Subjective/Events-last exam She has been up and working with physical therapy. She denies any fevers or chills. She denies any shortness of breath or cough. She denies any chest pain. She denies any abdominal pain, nausea, or vomiting. She feels like her rash is getting better. Objective Exam Vital Signs Vital Signs Date Time Temp Pulse Resp B/P (MAP) Pulse Ox O2 Delivery O2 Flow Rate FiO2 09/09/19 10:42 36.4 88 96 09/09/19 08:17 Room Air 0.00 09/09/19 08:00 18 137/80 (99) 09/04/19 09:50 30 Capillary Refill : Less Than 3 Seconds General Appearance: No Apparent Distress, Obese Respiratory: Lungs Clear, Normal Breath Sounds, No Respiratory Distress Cardiovascular: Regular Rate, Rhythm, No Edema, No Murmur Gastrointestinal: Normal Bowel Sounds, Non Tender, Soft Extremity: Non Tender, Pedal Edema, Other (Brace on left leg) Skin: Rash Results/Procedures Lab Laboratory Tests 09/09/19 06:05 Patient resulted labs reviewed. Assessment/Plan Assessment and Plan Assess & Plan/Chief Complaint Multifocal pneumonia Extubated 09/03 COVID negative Continue Merrem for pneumonia, stops tomorrow Candidiasis of skin Continue Diflucan and Nystatin cream Constipation Continue bowel regimen Anemia Hemoglobin 8.5, stable Continue to monitor s/p TKA and quadriceps repair Osteogenesis imperfecta Ortho consulted, appreciate recs PT/OT Awaiting insurance approval for transfer to inpatient rehabilitation DVT prophylaxis: Lovenox Lactic acidosis, resolved Endotracheally intubated, resolved Severe sepsis, resolved Acute respiratory failure with hypoxia, resolved Nausea and vomiting, resolved Leukocytosis, resolved Diagnosis/Problems Diagnosis/Problems (1) Severe sepsis Status: Resolved Resolution Date/Time: 09/05/19 @ 13:37 (2) Lactic acidosis Status: Resolved Resolution Date/Time: 09/05/19 @ 13:37 (3) Multifocal pneumonia Status: Acute (4) Quadriceps tendon rupture Status: Acute Qualifiers: Encounter type: subsequent encounter (5) Osteoarthritis of left knee Status: Chronic Qualifiers: Osteoarthritis type: primary Qualified Codes: M17.12 - Unilateral primary osteoarthritis, left knee (6) Acute respiratory failure with hypoxia Status: Resolved Resolution Date/Time: 09/06/19 @ 11:03 (7) Endotracheally intubated Status: Resolved Resolution Date/Time: 09/05/19 @ 13:37 (8) Candidiasis of skin Status: Acute Clinical Quality Measures DVT/VTE Risk/Contraindication: Risk Factor Score Per Nursin RFS Level Per Nursing on Admit: 4+=Very High JOANIE WAITE MD Sep 09, 2019 11:40
[2019-09-09 12:00] VITALS: BP 137/70
[2019-09-09 16:07] VITALS: BP 121/79
[2019-09-09 19:32] VITALS: BP 130/79
[2019-09-09] MEDS: MELATONIN 3 MG TABLET PO PRN (21:17)
[2019-09-10] VITALS: BP 131/74
[2019-09-10] MEDS: MEROPENEM 500 MG/SWFI 10 ML IV PUSH IV SCH ×4 (03:05→09:03)
[2019-09-10 04:00] VITALS: BP 126/75
[2019-09-10] MEDS: ENOXAPARIN 40 MG/0.4 ML (LOVENOX) SYR SC SCH (05:04)
[2019-09-10 05:55] LABS: BASOPHILS % (AUTO) 0 % (0-10); EOSINOPHILS # (AUTO) 0.2 10^3/uL (0.0-0.3); EOSINOPHILS % (AUTO) 2 % (0-10); HEMATOCRIT 31 % (35-52); HEMOGLOBIN 9.4 G/DL (11.5-16.0); LYMPHOCYTES # (AUTO) 2.3 X 10^3 (1.0-4.0); LYMPHOCYTES % (AUTO) 28 % (12-44); MEAN CORPUSCULAR HEMOGLOBIN 29 PG (25-34); MEAN CORPUSCULAR HGB CONC 30 G/DL (32-36); MEAN CORPUSCULAR VOLUME 95 FL (80-99); MEAN PLATELET VOLUME 8.6 FL (7.4-10.4); MONOCYTES # (AUTO) 0.9 X 10^3 (0.0-1.0); MONOCYTES % (AUTO) 11 % (0-12); NEUTROPHILS % (AUTO) 59 % (42-75); PLATELET COUNT 609 10^3/uL (130-400); RED CELL DISTRIBUTION WIDTH 16.6 % (10.0-14.5); WHITE BLOOD COUNT 8.5 10^3/uL (4.3-11.0)
[2019-09-10 06:20] LABS: BUN/CREATININE RATIO 21; CALCIUM 9.3 MG/DL (8.5-10.1); CARBON DIOXIDE 24 MMOL/L (21-32); CHLORIDE 101 MMOL/L (98-107); CREATININE SERUM 0.72 MG/DL (0.60-1.30); GFR ESTIMATED > 60; GLUCOSE 99 MG/DL (70-105); MAGNESIUM 2.2 MG/DL (1.6-2.4); PHOSPHORUS 3.9 MG/DL (2.3-4.7); POTASSIUM 4.2 MMOL/L (3.6-5.0); SODIUM 139 MMOL/L (135-145)
[2019-09-10 08:00] VITALS: BP 121/79
[2019-09-10] MEDS: RT-ALBUTEROL INHALER HFA (VENTOLIN HFA) 8 GM IH SCH (08:02)
--- NOTE | 2019-09-10 08:08 | Progress Note ---
Standard Progress Note Progress Notes/Assess & Plan Date Seen by a Provider: Sep 10, 2019 Time Seen by a Provider: 08:07 Progress/Assessment & Plan feeling much better today. Denies knee pain Vital Signs Date Time Temp Pulse Resp B/P (MAP) Pulse Ox O2 Delivery O2 Flow Rate FiO2 09/01/19 06:00 84 20 109/68 (82) 99 Nasal Cannula 2.00 09/01/19 05:00 83 18 104/63 (77) 100 Nasal Cannula 2.00 09/01/19 04:00 86 18 75/55 (62) 98 Nasal Cannula 2.00 09/01/19 04:00 37.2 09/01/19 04:00 94 Nasal Cannula 2.00 09/01/19 03:00 93 20 84/44 (57) 100 Nasal Cannula 2.00 09/01/19 02:00 100 18 95/56 (69) 91 Nasal Cannula 2.00 09/01/19 01:00 106 09/01/19 01:00 106 16 98/59 (72) 94 Nasal Cannula 2.00 09/01/19 00:49 36.7 Nasal Cannula 2.00 09/01/19 00:00 94 Nasal Cannula 2.00 09/01/19 00:00 115 18 100/57 (71) 96 Room Air 08/31/19 23:00 117 23 129/60 (83) 92 Room Air 08/31/19 23:00 37.7 08/31/19 22:30 120 22 125/67 (86) 94 Room Air 08/31/19 22:15 120 23 123/63 (83) 92 Room Air 08/31/19 22:00 121 16 124/64 (84) 92 Room Air 08/31/19 21:45 147 17 128/66 (86) 96 Room Air 08/31/19 21:30 39.0 08/31/19 21:30 148 I & O 09/01/19 07:00 Intake Total 670 ml Output Total 850 ml Balance -180 ml Laboratory Tests Test 08/31/19 21:55 08/31/19 23:10 09/01/19 01:30 Range/Units Blood Gas Puncture Site LEFT RADIAL Blood Gas Patient Temperature 39.0 Arterial Blood pH 7.47 H 7.37-7.43 Arterial Blood Partial Pressure CO2 31 L 35-45 MMHG Arterial Blood Partial Pressure O2 83 79-93 MMHG Arterial Blood HCO3 21 L 23-27 MMOL/L Arterial Blood Total CO2 22.1 21.0-31.0 MMOL/L Arterial Blood Oxygen Saturation 96 94-100 % Arterial Blood Base Excess -1.6 -2.5-2.5 MMOL/L Can Test POSITIVE Blood Gas Ventilator Setting NO Blood Gas Inspired Oxygen RA Lactic Acid Level 2.77 *H 1.47 0.50-2.00 MMOL/L White Blood Count 12.6 H 4.3-11.0 10^3/uL Red Blood Count 2.87 L 4.35-5.85 10^6/uL Hemoglobin 8.3 L 11.5-16.0 G/DL Hematocrit 27 L 35-52 % Mean Corpuscular Volume 92 80-99 FL Mean Corpuscular Hemoglobin 29 25-34 PG Mean Corpuscular Hemoglobin Concent 31 L 32-36 G/DL Red Cell Distribution Width 15.9 H 10.0-14.5 % Platelet Count 302 130-400 10^3/uL Mean Platelet Volume 8.5 7.4-10.4 FL Neutrophils (%) (Auto) 96 H 42-75 % Lymphocytes (%) (Auto) 3 L 12-44 % Monocytes (%) (Auto) 1 0-12 % Eosinophils (%) (Auto) 0 0-10 % Basophils (%) (Auto) 0 0-10 % Neutrophils # (Auto) 12.1 H 1.8-7.8 X 10^3 Lymphocytes # (Auto) 0.4 L 1.0-4.0 X 10^3 Monocytes # (Auto) 0.1 0.0-1.0 X 10^3 Eosinophils # (Auto) 0.0 0.0-0.3 10^3/uL Basophils # (Auto) 0.0 0.0-0.1 10^3/uL Sodium Level 134 L 135-145 MMOL/L Potassium Level 3.1 L 3.6-5.0 MMOL/L Chloride Level 101 98-107 MMOL/L Carbon Dioxide Level 20 L 21-32 MMOL/L Anion Gap 13 5-14 MMOL/L Blood Urea Nitrogen 14 7-18 MG/DL Creatinine 0.96 0.60-1.30 MG/DL Estimat Glomerular Filtration Rate 59 BUN/Creatinine Ratio 15 Glucose Level 108 H 70-105 MG/DL Calcium Level 8.7 8.5-10.1 MG/DL Phosphorus Level 2.2 L 2.3-4.7 MG/DL Magnesium Level 1.8 1.6-2.4 MG/DL L knee incision clean and dry without erythema or warmth. echymosis present. no calf tenderness. Neg Shawn's s/p L TKA with subsequent quad rupture and repair i do not believe the knee is the source of the patient's decompensation. Ok to continue PT from my standpoint Final Diagnosis no complaints LLE- with well healed incision and no effusion s/p LTKA with quad repair to REFUGIO RODRIGUEZ MD Sep 10, 2019 08:07
[2019-09-10] MEDS: polyethylene glycoL POWDER 17 GM (MIRALAX) PACK PO SCH (08:51)
[2019-09-10] MEDS: DOCUSATE SODIUM 100 MG (COLACE) CAP PO SCH (08:52)
[2019-09-10] MEDS: SENNOSIDES 8.6 MG (SENOKOT) TAB PO SCH (09:03)
[2019-09-10] MEDS: meTOprolol SUCCINATE 100 MG (TOPROL XL) TAB PO SCH (09:03)
[2019-09-10] MEDS: NYSTATIN CREAM (MYCOSTATIN) 30 GM TUBE TP SCH ×2 (09:03→12:08)
[2019-09-10] MEDS: fluCOnazole (DIFLUCAN) 100 MG TAB PO SCH (09:03)
[2019-09-10] MEDS: FAMOTIDINE 20 MG (PEPCID) TABLET PO SCH (09:03)
--- NOTE | 2019-09-10 09:11 | Physical Therapy Daily Note ---
PT Daily Note-Current Subjective Patient in recliner pre tx, agrees to PT, has 4/10 pain in left leg, states she has a blister on her left heel and nursing is aware of it. Appearance Patient in recliner post tx with nurse call, phone, tray, all needs met. Mental Status Patient Orientation: Normal For Age left leg brace Transfers SCALE: Activities may be completed with or without assistive devices. 1-Zhizlohsvp-zfwfjdn completes the activity by him/herself with no assistance from a helper. 5-Set-up or Clean-up Assistance-helper sets up or cleans up; patient completes activity. [place] assists only prior to or following the activity. 4-Supervision or Touching Assistance-helper provides verbal cues and/or touching/steadying and/or contact guard assistance as patient completes activity. Assistance may be provided throughout the activity or intermittently. 3-Partial/Moderate Assistance-helper does LESS THAN HALF the effort. [place] lifts, holds or supports trunk or limbs, but provides less than half the effort. 2-Substantial/Maximal Assistance-helper does MORE THAN HALF the effort. [place] lifts or holds trunk or limbs and provides more than half the effort. 8-Szqwiyama-heynwc does ALL the effort. Patient does none of the effort to complete the activity. Or, the assistance of 2 or more helpers is required for the patient to complete the activity. If activity was not attempted, code reason: 7-Patient Refused. 9-Not Applicable-not attempted and the patient did not perform the activity before the current illness, exacerbation or injury. 10-Not Attempted due to Environmental Limitations-(lack of equipment, weather restraints, etc.). 88-Not Attempted due to Medical Conditions or Safety Concerns. Sit to Stand (QC): 6 Chair/Ynl-oe-Mjgsg Xfer(QC): 6 Weight Bearing Right Lower Extremity: Right Weight Bearing/Tolerated Left Lower Extremity: Left Weight Bearing/Tolerated Gait Training Distance: 150' Walk 10 feet (QC): 6 Walk 50 ft with 2 Turns(QC): 6 Walk 150 ft (QC): 6 Gait Assistive Device: FWW independent with transfers and ambulation using a rolling walker, slow but steady ambulation Exercises Seated Therapy Exercises: Ankle pumps Seated Reps: 20 Treatments transfers, ambulation, LE exercise Assessment Current Status: Fair Progress independent with transfers and ambulation PT Prison Goals Assistant Softball Coach Goals PT Prison Goals Time Frame: Sep 15, 2019 Roll Left & Right (QC): 6 Sit to Lying (QC): 6 Lying-Sitting on Side/Bed(QC): 6 Sit to Stand (QC): 6 Chair/Mez-fv-Ijlbn Xfer(QC): 6 Toilet Transfer (QC): 6 Car Transfer (QC): 6 Does the Patient Walk: No and Walking Goal IS indicated Walk 10 feet (QC): 6 Walk 50ft with 2 Turns (QC): 6 Walk 150 ft (QC): 6 Walking 10ft on Uneven Surface: 6 1 Step (curb) (QC): 6 PT Plan Problem List Problem List: Activity Tolerance, Functional Strength, Safety, Balance, Gait, Transfer Treatment/Plan Treatment Plan: Continue Plan of Care Treatment Plan: Bed Mobility, Education, Functional Activity Alexsandra, Functional Strength, Gait, Safety, Therapeutic Exercise, Transfers Treatment Duration: Sep 15, 2019 Frequency: 6 times per week Estimated Hrs Per Day: .25 hour per day Patient and/or Family Agrees t: Yes Safety Risks/Education Patient Education: Gait Training, Transfer Techniques, Correct Positioning, Safety Issues Teaching Recipient: Patient Teaching Methods: Demonstration, Discussion Response to Teaching: Reinforcement Needed Time/GCodes Time In: 0849 Time Out: 0859 Total Billed Treatment Time: 10 Total Billed Treatment 1 visit FA VICENTE JACOBSNO PT Sep 10, 2019 09:10
--- NOTE | 2019-09-10 10:02 | Progress Note - Cardiology ---
Cardiology SOAP Progress Note Subjective: Gen weakness and malaise present No cp or palp or syncope or shortness of breath No focal weakness Able to ambulate with assistance Objective: I&O/Vital Signs 09/10/19 09/10/19 09/10/19 09/10/19 00:00 01:00 04:00 07:00 Temp 36.5 36.5 Pulse 92 82 83 97 Resp 18 18 B/P (MAP) 131/74 (93) 126/75 (92) Pulse Ox 95 100 O2 Delivery Room Air Room Air 09/10/19 09/10/19 08:00 08:02 Temp 36.4 Pulse 86 Resp 20 B/P (MAP) 121/79 (93) Pulse Ox 98 96 O2 Delivery Room Air Room Air 09/10/19 00:00 Intake Total 1980 ml Balance 1980 ml Weight (Pounds): 183 Weight (Ounces): 5.0 Weight (Calculated Kilograms): 83.548134 Constitutional: AAO x 3, well-developed, well-nourished Respiratory: chest expansion is symmetric, chest is bilaterally symmetric, other (good air entry) Cardiovascular: regular rate-rhythm; No JVD; S1 and S2 Gastrointestional: soft, audible bowel sounds Extremities: normal range of motion, non-tender, normal inspection, other (Brace to left leg), no lower extremity edema bilateral Neurologic/Psychiatric: other (moves all extremities; brace in place to left leg) Skin: normal color, warm/dry, rash on exposed areas (diffuse, red raised rash to coccyx and right hip); No ulcerations on exposed areas Results/Procedures: Labs Laboratory Tests 09/10/19 05:15: White Blood Count 8.5, Red Blood Count 3.24L, Hemoglobin 9.4L, Hematocrit 31L, Mean Corpuscular Volume 95, Mean Corpuscular Hemoglobin 29, Mean Corpuscular Hemoglobin Concent 30L, Red Cell Distribution Width 16.6H, Platelet Count 609H, Mean Platelet Volume 8.6, Neutrophils (%) (Auto) 59, Lymphocytes (%) (Auto) 28, Monocytes (%) (Auto) 11, Eosinophils (%) (Auto) 2, Basophils (%) (Auto) 0, Neutrophils # (Auto) 5.0, Lymphocytes # (Auto) 2.3, Monocytes # (Auto) 0.9, Eosinophils # (Auto) 0.2, Basophils # (Auto) 0.0, Sodium Level 139, Potassium Level 4.2, Chloride Level 101, Carbon Dioxide Level 24, Anion Gap 14, Blood Urea Nitrogen 15, Creatinine 0.72, Estimat Glomerular Filtration Rate > 60, BUN/Creatinine Ratio 21, Glucose Level 99, Calcium Level 9.3, Phosphorus Level 3.9, Magnesium Level 2.2 Microbiology 09/02/19 Blood Culture - Final, Complete No growth 09/02/19 Gram Stain - Final, Complete 09/02/19 Body Fluid Culture - Final, Complete No growth 09/02/19 Gram Stain - Final, Complete 09/02/19 Sputum Culture - Final, Complete Usual upper respiratory kelsey YEAST Laboratory Tests 09/09/19 06:05 09/10/19 05:15 A/P: Assessment: Ac resp failure (with transient hypoxia) - extubated on 09-04-2019 Septic shock post surgery (hypotension now resolved) s/p L total knee arthroplasty on 08/22/19 and quadriceps tendon repair on 08/24/19 Severe, post-op anemia - improved - management per medical services Intermittent sinus tach during this hospitalization Left bundle branch block, chronic History of cardiac catheterization in 2013: mild coronary artery disease; last MPI in March 2019 showing no significant ischemia or infarction, ejection fraction 78 percent. Echo 09/02/19 (Dr Willingham): LVEF 45-50%, no RWMA, mod TR, PASP 40-45 mmHg History of isolated PVCs and few brief runs of nonsustained ventricular tachycardia, she was seen by Dr. Marie and Dr. Lewis as an outpatient. Hyperlipidemia, treated with Lipitor History of mild carotid stenosis H/o tobacco use Plan: * Continue current cardiac regimen * Continue monitor and correct labs JUANJO MARCIAL MD FACP FAC CCDS Sep 10, 2019 10:02
--- NOTE | 2019-09-10 11:34 | Occupational Ther Daily Note ---
OT Current Status-Daily Note Subjective Pt alert, sitting in recliner. Pt agrees to therapy. No c/o pain initially though after therapy, pt to call nrsg for pain meds. Mental Status/Objective Patient Orientation: Person, Place, Time, Situation Attachments: IV ADL-Treatment Therapy Code Descriptions/Definitions Functional [place] Measure: 0=Not Assessed/NA 4=Minimal Assistance 1=Total Assistance 5=Supervision or Setup 2=Maximal Assistance 6=Modified [place] 3=Moderate Assistance 7=Complete IndependenceSCALE: Activities may be completed with or without assistive devices. 5-Hmllsmykun-ayegyub completes the activity by him/herself with no assistance from a helper. 5-Set-up or Clean-up Assistance-helper sets up or cleans up; patient completes activity. [place] assists only prior to or following the activity. 4-Supervision or Touching Assistance-helper provides verbal cues and/or touching/steadying and/or contact guard assistance as patient completes activity. Assistance may be provided throughout the activity or intermittently. 3-Partial/Moderate Assistance-helper does LESS THAN HALF the effort. [place] lifts, holds or supports trunk or limbs, but provides less than half the effort. 2-Substantial/Maximal Assistance-helper does MORE THAN HALF the effort. [place] lifts or holds trunk or limbs and provides more than half the effort. 4-Vnwukhzbh-xgqtun does ALL the effort. Patient does none of the effort to complete the activity. Or, the assistance of 2 or more helpers is required for the patient to complete the activity. If activity was not attempted, code reason: 7-Patient Refused. 9-Not Applicable-not attempted and the patient did not perform the activity before the current illness, exacerbation or injury. 10-Not Attempted due to Environmental Limitations-(lack of equipment, weather restraints, etc.). 88-Not Attempted due to Medical Conditions or Safety Concerns. Other Treatment Pt stated that she has been getting up to bathroom on own. Taking shower on own after set up, last night. Pt has been moving around room using FWW. Pt agrees to ambulate to increase activity tolerance and strength for daily functional tasks. Pt was able to complete ~150 ft ambulating with FWW slowly and multiple recovery breaks in standing. After session, pt sitting in recliner with call light/phone in reach. All needs met in room. OT Remediation Consultant Goals Remediation Consultant Goals Time Frame: Sep 15, 2019 Eating (QC): 6 Oral Hygiene (QC): 6 Toileting Hygiene (QC): 6 Shower/Bathe Self (QC): 6 Upper Body Dressing (QC): 6 Lower Body Dressing (QC): 6 On/Off Footwear (QC): 6 Additional Goals: 1-Demonstrate ADL Tasks, 2-Verbalize Understanding, 3- ImproveStrength/Alexsandra 1=Demonstrate adherence to instructed precautions during ADL tasks. 2=Patient will verbalize/demonstrate understanding of assistive devices/modifications for ADL. 3=Patient will improve strength/tolerance for activity to enable patient to perform ADL's. OT Education/Plan Problem List/Assessment Assessment: Decreased Activ Tolerance, Decreased UE Strength, Impaired Self- Care Skills Discharge Recommendations Plan/Recommendations: Continue POC Treatment Plan/Plan of Care Patient would benefit from OT for education, treatment and training to promote independence in ADL's, mobility, safety and/or upper extremity function for ADL's. Plan of Care: ADL Retraining, Functional Mobility Treatment Duration: Sep 15, 2019 Frequency: 5 times per week Estimated Hrs Per Day: .5 hour per day Agreement: Yes Rehab Potential: Good Time/GCodes Start Time: 10:37 Stop Time: 11:00 Total Time Billed (hr/min): 23 Billed Treatment Time 1 visit-FA 2 (23 min) CARIMNE BELTRAN Sep 10, 2019 11:34
--- NOTE | 2019-09-10 11:57 | Discharge Summary ---
Diagnosis/Chief Complaint Date of Admission Aug 31, 2019 at 21:30 Date of Discharge Discharge Date: Sep 08, 2019 Admission Diagnosis Fever Primary Care Discharge Diagnosis (1) Severe sepsis Status: Resolved (2) Lactic acidosis Status: Resolved (3) Multifocal pneumonia Status: Acute (4) Quadriceps tendon rupture Status: Acute (5) Osteoarthritis of left knee Status: Chronic (6) Acute respiratory failure with hypoxia Status: Resolved (7) Endotracheally intubated Status: Resolved (8) Candidiasis of skin Status: Acute Discharge Summary Discharge Physical Exam Allergies: Coded Allergies: cephalexin (Unverified Adverse Reaction, Intermediate, VOMITING, 08/22/19) pravastatin (Unverified Adverse Reaction, Mild, NAUSEA, 08/22/19) Vitals & I&Os Vital Signs Date Time Temp Pulse Resp B/P (MAP) Pulse Ox O2 Delivery O2 Flow Rate FiO2 09/10/19 12:36 100 09/10/19 12:16 36.0 20 145/81 (102) 99 Room Air 09/09/19 08:17 0.00 09/04/19 09:50 30 General Appearance: No Apparent Distress, WD/WN Cardiovascular: Regular Rate, Rhythm, No Murmur Gastrointestinal: Normal Bowel Sounds, Soft Neurologic/Psychiatric: Alert, Oriented x3 Hospital Course Pt was admitted due to severe sepsis from pneumonia. She required mechanical ventilation for a short period of time due to respiratory failure from pneum onia. She was tested for COVID19 and was negative. She treated with IV abx and did well. She was weaned off the vent and resumed care with PT/OT for her recent TKA. She was discharged to IRU in stable condition for continued intensive therapy. Labs (last 24 hrs) Laboratory Tests 09/10/19 05:15: White Blood Count 8.5, Red Blood Count 3.24L, Hemoglobin 9.4L, Hematocrit 31L, Mean Corpuscular Volume 95, Mean Corpuscular Hemoglobin 29, Mean Corpuscular Hemoglobin Concent 30L, Red Cell Distribution Width 16.6H, Platelet Count 609H, Mean Platelet Volume 8.6, Neutrophils (%) (Auto) 59, Lymphocytes (%) (Auto) 28, Monocytes (%) (Auto) 11, Eosinophils (%) (Auto) 2, Basophils (%) (Auto) 0, Neutrophils # (Auto) 5.0, Lymphocytes # (Auto) 2.3, Monocytes # (Auto) 0.9, Eosinophils # (Auto) 0.2, Basophils # (Auto) 0.0, Sodium Level 139, Potassium Level 4.2, Chloride Level 101, Carbon Dioxide Level 24, Anion Gap 14, Blood Urea Nitrogen 15, Creatinine 0.72, Estimat Glomerular Filtration Rate > 60, BUN/Creatinine Ratio 21, Glucose Level 99, Calcium Level 9.3, Phosphorus Level 3.9, Magnesium Level 2.2 Microbiology 09/02/19 Blood Culture - Final, Complete No growth 09/02/19 Gram Stain - Final, Complete 09/02/19 Body Fluid Culture - Final, Complete No growth 09/02/19 Gram Stain - Final, Complete 09/02/19 Sputum Culture - Final, Complete Usual upper respiratory kelsey YEAST Patient resulted labs reviewed. Pending Labs Discussion & Recommendations Discharge Planning: >30 minutes discharge planning Discharge Home Medications: Active Scripts Active Percocet 5-325 mg Tablet (Oxycodone HCl/Acetaminophen) 1 Each Tablet 1 Tab PO Q4H MDD 6 TABS 7 Days Reported Acid Production Illustrator (FAMOTIDINE) (Famotidine) 20 Mg Tablet 40 Mg PO DAILY Metoprolol Succinate 25 Mg Tab.er.24h 25 Mg PO BID Atorvastatin Calcium 10 Mg Tablet 10 Mg PO HS Tylenol (Acetaminophen) 325 Mg Capsule 650 Mg PO TID Aspirin 81 Mg Tab.chew 81 Mg PO DAILY Instructions to patient/family Please see electronic discharge instructions given to patient. Clinical Quality Measures DVT/VTE Risk/Contraindication: Risk Factor Score Per Nursin RFS Level Per Nursing on Admit: 4+=Very High Problem Qualifiers (1) Quadriceps tendon rupture: Encounter type: subsequent encounter (2) Osteoarthritis of left knee: Osteoarthritis type: primary Qualified Codes: M17.12 - Unilateral primary osteoarthritis, left knee CHRIS BRIGGS MD Sep 10, 2019 11:57
--- NOTE | 2019-09-10 12:15 | NUR ---
OXYIR 5MG PO FOR PAIN.
[2019-09-10 12:16] VITALS: BP 145/81
--- NOTE | 2019-09-10 13:05 | NUR ---
REPORT TO LAUREN ON ARU.
--- NOTE | 2019-09-10 13:23 | NUR ---
TO ARU PER WC WITH PT.
--- NOTE | 2019-09-10 16:33 | Cardiology Progress Note ---
Cardiology SOAP Progress Note Subjective: No cardiac complaints. Objective: I&O/Vital Signs 09/10/19 09/10/19 09/10/19 09/10/19 07:00 08:00 08:00 08:02 Temp 36.4 Pulse 97 86 Resp 20 B/P (MAP) 121/79 (93) Pulse Ox 98 96 O2 Delivery Room Air Room Air Room Air 09/10/19 09/10/19 12:16 12:36 Temp 36.0 Pulse 96 100 Resp 20 B/P (MAP) 145/81 (102) Pulse Ox 99 O2 Delivery Room Air 09/10/19 00:00 Intake Total 1980 ml Balance 1980 ml Weight (Pounds): 183 Weight (Ounces): 5.0 Weight (Calculated Kilograms): 83.443880 Constitutional: AAO x 3, well-developed, well-nourished Respiratory: chest expansion is symmetric, chest is bilaterally symmetric, other (good air entry) Cardiovascular: regular rate-rhythm; No JVD; S1 and S2 Gastrointestional: soft, audible bowel sounds Extremities: normal range of motion, non-tender, normal inspection, other (Brace to left leg), no lower extremity edema bilateral Neurologic/Psychiatric: other (moves all extremities; brace in place to left leg) Skin: normal color, warm/dry, rash on exposed areas (diffuse, red raised rash to coccyx and right hip); No ulcerations on exposed areas Results/Procedures: Labs Laboratory Tests 09/10/19 05:15: White Blood Count 8.5, Red Blood Count 3.24L, Hemoglobin 9.4L, Hematocrit 31L, Mean Corpuscular Volume 95, Mean Corpuscular Hemoglobin 29, Mean Corpuscular Hemoglobin Concent 30L, Red Cell Distribution Width 16.6H, Platelet Count 609H, Mean Platelet Volume 8.6, Neutrophils (%) (Auto) 59, Lymphocytes (%) (Auto) 28, Monocytes (%) (Auto) 11, Eosinophils (%) (Auto) 2, Basophils (%) (Auto) 0, Neutrophils # (Auto) 5.0, Lymphocytes # (Auto) 2.3, Monocytes # (Auto) 0.9, Eosinophils # (Auto) 0.2, Basophils # (Auto) 0.0, Sodium Level 139, Potassium Level 4.2, Chloride Level 101, Carbon Dioxide Level 24, Anion Gap 14, Blood Urea Nitrogen 15, Creatinine 0.72, Estimat Glomerular Filtration Rate > 60, BUN/Creatinine Ratio 21, Glucose Level 99, Calcium Level 9.3, Phosphorus Level 3.9, Magnesium Level 2.2 Microbiology 09/02/19 Blood Culture - Final, Complete No growth 09/02/19 Gram Stain - Final, Complete 09/02/19 Body Fluid Culture - Final, Complete No growth 09/02/19 Gram Stain - Final, Complete 09/02/19 Sputum Culture - Final, Complete Usual upper respiratory kelsey YEAST A/P: Assessment/Dx: Sepsis, Acute Respiratory failure, Mild CAD, History of PVCs, Nonsustained ventricular tachycardia Plan: No EP concerns. Patient has history of PVCs and nonsustained ventricular tachycardia with mild CAD and normal LV function. Already on high dose beta blockers. No acute arrhythmias during this hospitalization. Sinus tachycardia due to significant systemic illness. Which is now resolved. Keep potassium over 4 and magnesium over 2. Defer treatment of sepsis and acute respiratory failure to the primary team. Resolved. Cardiac electrophysiology to sign off. Dr. Reaves will continue to follow the patient. Thank you for your consultation. Please call me if you have any questions. Rafy Lewis MD, FACP, FACC, FSCAI, FHRS, CCDS Interventional Cardiology Cardiac Electrophysiology Vascular Medicine and Endovascular Interventions Dany LEWIS MD Sep 10, 2019 16:33
== END 2019-09-10 13:24 | DRG 871 ==
LOC: ICU 21:30 → 4TH 09-05 10:37
PROVIDERS: ADMIT Family Medicine; ATTEND Internal Medicine
PROC: 0S9D3ZX Drainage of Left Knee Joint, Percutaneous Approach, Diagnostic (ICD-10-PCS; principal; 2019-09-02)
PROC: 0BH17EZ Insertion of Endotracheal Airway into Trachea, Via Natural or Artificial Opening (ICD-10-PCS; 2019-09-02)
PROC: 5A1945Z Respiratory Ventilation, 24-96 Consecutive Hours (ICD-10-PCS; 2019-09-02)
PROC: 5A2204Z Restoration of Cardiac Rhythm, Single (ICD-10-PCS; 2019-09-02)
PROC: 02HV33Z Insertion of Infusion Device into Superior Vena Cava, Percutaneous Approach (ICD-10-PCS; 2019-09-03)
DX: A41.9 Sepsis, unspecified organism (principal); J96.00 Acute respiratory failure, unspecified whether with hypoxia or hypercapnia; J18.9 Pneumonia, unspecified organism; I48.92 Unspecified atrial flutter; Q78.0 Osteogenesis imperfecta; E87.2 Acidosis; I47.2 Ventricular tachycardia; I95.9 Hypotension, unspecified; D64.9 Anemia, unspecified; E78.00 Pure hypercholesterolemia, unspecified; I10 Essential (primary) hypertension; F17.210 Nicotine dependence, cigarettes, uncomplicated; J30.2 Other seasonal allergic rhinitis; Z20.828 Contact with and (suspected) exposure to other viral communicable diseases; I25.10 Atherosclerotic heart disease of native coronary artery without angina pectoris; K21.9 Gastro-esophageal reflux disease without esophagitis; M54.9 Dorsalgia, unspecified; E66.9 Obesity, unspecified; Z96.652 Presence of left artificial knee joint; Z88.1 Allergy status to other antibiotic agents; Z68.33 Body mass index [BMI] 33.0-33.9, adult
CPT/HCPCS: 36415; 71045; 71275; 80048; 80202; 81000; 82274; 82805; 82962; 83605; 83735; 83880; 84100; 84145; 84443; 84478; 84484; 85007; 85025; 85027; 85379; 85610; 85652; 85730; 86141; 86769; 87040; 87070; 87081; 87205; 87449; 87631; 87635; 87804; 87899; 88112; 88305; 93005; 93306; 93970; 94002; 94003; 94640; 94760; 94799

== ENCOUNTER 2019-09-08 13:35 | Inpatient (IN) | payer OTHER ==
[~2019-09-08] VITALS: Ht 162 cm; Wt 84.4 kg
[~2019-09-08 13:35] MED LIST changes: +ATOR10TA66 PO; -MIDAZOLAM 5 MG/5 ML (VERSED) VIAL IJ ONE; -SUCCINYLCHOLINE INJ 100 MG/5 ML SYR INJ ONE
[2019-09-10] MEDS ORDERED: BISACODYL 10 MG SUPP (DULCOLAX) PR PRN ×2 (12:15→15:15)
[2019-09-10] MEDS ORDERED: ALPRAZolam 0.25 MG (XANAX) TAB PO PRN (12:15)
[2019-09-10] MEDS ORDERED: CALCIUM CARBONATE 500 MG (TUMS) TAB.CHEW PO PRN ×2 (12:15→15:15)
[2019-09-10] MEDS ORDERED: FLEET ENEMA ADULT 1 EA BTL PR PRN (12:15)
[2019-09-10] MEDS ORDERED: LOPERAMIDE 2 MG (IMODIUM) TABLET PO PRN (12:15)
[2019-09-10] MEDS ORDERED: ONDANSETRON 4 MG (ZOFRAN) ORAL DISSOLVE TAB PO PRN ×2 (12:15→15:15)
[2019-09-10] MEDS ORDERED: LACTULOSE SYRUP 10GM/15ML (ENULOSE) 30ML UDC PO PRN ×2 (12:15→15:15)
[2019-09-10] MEDS ORDERED: diphenhydrAMINE 25 MG TAB (BENADRYL) PO PRN (12:15)
[2019-09-10] MEDS ORDERED: DOCUSATE SODIUM 100 MG (COLACE) CAP PO PRN (12:15)
[2019-09-10] MEDS ORDERED: MELATONIN 3 MG TABLET PO PRN ×2 (12:15→15:15)
[2019-09-10] MEDS ORDERED: guaiFENesin/CODEINE (ROBITUSSIN AC) 10ML UDC PO PRN (12:15)
[2019-09-10 13:10] VITALS: BP 135/65
--- NOTE | 2019-09-10 13:33 | NUR ---
TIM SUTHERLAND admitted to room 230, with an admitting diagnosis of PNEUMONIA S/P LEFT TOTAL KNEE REPLACEMENT, on 09/10/19 from [facility]LOOR via WHEELCHAIR, accompanied by THERAPY. TIM SUTHERLAND introduced to surroundings, call light, bed controls, phone, TV, temperature control, lights, meal times, smoking policy, visitor policy, side rail policy, bathrooms and showers. Patient Rights given to patient in the handbook.TIM SUTHERLAND verbalizes understanding that [facility] is not responsible for the loss or damage to any personal effects or valuables that are kept in the patient's possession during their hospitalization. The following Patient Care Plans were discussed with the PATIENT: Discharge Planning, INFECTION, ACTIVITY INTOLERANCE, and KNOWLEDGE DEFICIT. TIM SUTHERLAND verbalizes understanding of Interdisciplinary Patient Education. Patient received Patient Rights Booklet, which includes Privacy Act Statement and Data Collection Information Summary.
--- NOTE | 2019-09-10 14:00 | NUR ---
PT AND PATIENT IN GYM. PT ASKS THIS RN TO ASSESS PATIENT'S LEG HE REPORTS HER POST OP. LEFT LEG IS MORE RED AND SWOLLEN. THIS RN ASSESS PATIENT AND LEFT LEG DOES APPEAR TO HAVE +1 PITTING EDEMA AND INCREASE WARMTH AND REDNESS. EARLENE'S SIGN PREFORMED AND POSITIVE EARLENE'S SIGN NOTED. AWARE AND ORDERED US DOPPLER OF LEFT LOWER EXT. WILL CONTINUE TO MONITOR.
--- NOTE | 2019-09-10 14:02 | Occupational Therapy Eval ---
OT Evaluation-General/PLF Medical Diagnosis Admission Date Sep 10, 2019 at 13:10 Medical Diagnosis: AF-RVR Onset Date: August 22, 2019 Therapy Diagnosis Therapy Diagnosis: Weakness, Decreased ADL skills Height/Weight Height (Feet): 5 Height (Inches): 4.00 Weight (Pounds): 183 Weight (Ounces): 5.0 Weight Bear Status Weight Bearing Restriction: Non Weight Bearing Location Restriction: L LE Knee brace on at all times except to shower. Referral Physician: Dr. Stafford Referral Reason: Activity Tolerance, Self Care, Evaluation/Treatment, Strengthening/ROM Medical History Additional Medical History Osteogenesis imperfecta Current History Pt. had left knee replaced on August 21. Experienced quad tear on the . Quadriceps was repaired and pt. came to rehab. Transferred back to ICU due to change in medical status. Pt. transferred back to rehab with dx of AF-RVR. Reviewed History: Yes Social History Home: Single Level Current Living Status: Friend Entry Into Home: Stairs With Railing Steps Into Home: 3 Pt. lives with 2 friends that can assist. She also has another friend that can assist as needed. ADL-Prior Level of Function SCALE: Activities may be completed with or without assistive devices. 4-Gjwmtsibok-fidkuys completes the activity by him/herself with no assistance from a helper. 5-Set-up or Clean-up Assistance-helper sets up or cleans up; patient completes activity. [place] assists only prior to or following the activity. 4-Supervision or Touching Assistance-helper provides verbal cues and/or touching/steadying and/or contact guard assistance as patient completes activity. Assistance may be provided throughout the activity or intermittently. 3-Partial/Moderate Assistance-helper does LESS THAN HALF the effort. [place] lif ts, holds or supports trunk or limbs, but provides less than half the effort. 2-Substantial/Maximal Assistance-helper does MORE THAN HALF the effort. [place] lifts or holds trunk or limbs and provides more than half the effort. 3-Fgpdlydan-jztdcs does ALL the effort. Patient does none of the effort to complete the activity. Or, the assistance of 2 or more helpers is required for the patient to complete the activity. If activity was not attempted, code reason: 7-Patient Refused. 9-Not Applicable-not attempted and the patient did not perform the activity before the current illness, exacerbation or injury. 10-Not Attempted due to Environmental Limitations-(lack of equipment, weather restraints, etc.). 88-Not Attempted due to Medical Conditions or Safety Concerns. ADL PLOF Comments Pt. was independent with daily tasks. Pt. drives and does not use an assistive device to ambulate. 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 reports pain in left knee, but has had pain medication. Does not report pain level. Appearance Pt. is agreeable to treatment. Mental Status/Objective Patient Orientation: Person, Place, Time, Situation Current Glasses/Contacts: Yes Upper Extremity ROM WFL ADL-Treatment Eating (QC): 6 Oral Hygiene (QC): 6 Shower/Bathe Self (QC): 10 Upper Body Dressing (QC): 10 Lower Body Dressing (QC): 10 On/Off Footwear (QC): 2 Toileting Hygiene (QC): 7 Other Treatments Pt. seen for brief evaluation with OT. Will continue working with her this afternoon. Pt. able to transfer supine-sit on mat with min assist. CGA for sit-stand. Pt. will attempt ADLs at later time this afternoon. Pt. is able to give OT all information about PLOF, and current situation. Education OT Patient Education: Correct positioning, Modified ADL techniques, Progress toward Goal/Update tx plan, Purpose of tx/functional activities, Reviewed precautions, Rehab process Teaching Recipient: Patient Teaching Methods: Demonstration, Discussion Response to Teaching: Verbalize Understanding, Return Demonstration OT Jail Goals Housekeeper/Custodian/Laundry Worker Goals Time Frame: Sep 24, 2019 Eating (QC): 6 Oral Hygiene (QC): 6 Toileting Hygiene (QC): 6 Shower/Bathe Self (QC): 5 Upper Body Dressing (QC): 6 Lower Body Dressing (QC): 6 On/Off Footwear (QC): 6 Additional Goals: 1-Demonstrate ADL Tasks, 2-Verbalize Understanding, 3- ImproveStrength/Alexsandra 1=Demonstrate adherence to instructed precautions during ADL tasks. 2=Patient will verbalize/demonstrate understanding of assistive devices/modifications for ADL. 3=Patient will improve strength/tolerance for activity to enable patient to perform ADL's. OT Education/Plan Problem List/Assessment Assessment: Decreased Activ Tolerance, Dependent Transfers, Impaired I ADL's, Impaired Self-Care Skills Discharge Recommendations Plan/Recommendations: Continue POC Equpiment Recommendations-D/C: Hip Kit Treatment Plan/Plan of Care Treatment,Training & Education: Yes Patient would benefit from OT for education, treatment and training to promote independence in ADL's, mobility, safety and/or upper extremity function for ADL's. Plan of Care: ADL Retraining, Functional Mobility, UE Funct Exercise/Act Treatment Duration: Sep 24, 2019 Frequency: At least 5 of 7 days/Wk (IRF) Estimated Hrs Per Day: 1.5 hours per day Agreement: Yes Rehab Potential: Good Time/GCodes Start Time: 13:35 Stop Time: 13:45 Total Time Billed (hr/min): 10 Billed Treatment Time 1, KIRAN CARVALHO OT Sep 10, 2019 14:02
--- NOTE | 2019-09-10 14:49 | NUR ---
THE PT TRANSFERRED FROM 4TH FLOOR TO IRF- I REVIEWED ALL THE MEDICATIONS FOR CONTINUATION
--- NOTE | 2019-09-10 14:52 | Occupational Ther Daily Note ---
OT Current Status-Daily Note Subjective Pt alert, sitting in therapy gym. Took over pt from OTR/L. Pt c/o pain, reported to nrsg. Mental Status/Objective Patient Orientation: Person, Place, Time, Situation Attachments: IV ADL-Treatment Co-treat with PT ([id number]), skills of 2 clinicians required due to decreased activity tolerance and decreased mobility. PT working on standing balance, functional mobility, transfers and LE strengthening. OT working on ADLs, functional transfers and B UE placement during each task. See PT note for ambulation and transfers. Pt declined shower at this time due to fatigue. Pt requested to sit at sink to complete sponge bath. Sitting at sink, pt able to complete upper body bathing, upper body dressing, grooming and oral care by self after set up. Pt transferred to toilet with supervision then completed toilet hygiene and clothing manipulation mod I. Pt ambulated to sink to wash hands. OTR/L took over treatment. All needs met in room. Therapy Code Descriptions/Definitions Functional [place] Measure: 0=Not Assessed/NA 4=Minimal Assistance 1=Total Assistance 5=Supervision or Setup 2=Maximal Assistance 6=Modified [place] 3=Moderate Assistance 7=Complete IndependenceSCALE: Activities may be completed with or without assistive devices. 5-Saohgmwizk-jggjslf completes the activity by him/herself with no assistance from a helper. 5-Set-up or Clean-up Assistance-helper sets up or cleans up; patient completes activity. [place] assists only prior to or following the activity. 4-Supervision or Touching Assistance-helper provides verbal cues and/or touching/steadying and/or contact guard assistance as patient completes activity. Assistance may be provided throughout the activity or intermittently. 3-Partial/Moderate Assistance-helper does LESS THAN HALF the effort. [place] lifts, holds or supports trunk or limbs, but provides less than half the effort. 2-Substantial/Maximal Assistance-helper does MORE THAN HALF the effort. [place] lifts or holds trunk or limbs and provides more than half the effort. 2-Yhxxduwaq-omnkda does ALL the effort. Patient does none of the effort to complete the activity. Or, the assistance of 2 or more helpers is required for the patient to complete the activity. If activity was not attempted, code reason: 7-Patient Refused. 9-Not Applicable-not attempted and the patient did not perform the activity before the current illness, exacerbation or injury. 10-Not Attempted due to Environmental Limitations-(lack of equipment, weather restraints, etc.). 88-Not Attempted due to Medical Conditions or Safety Concerns. Eating (QC): 6 (Using clinical judgment, pt is able to set own meal up and use regular utensils to eat.) Oral Hygiene (QC): 6 Bathing Location: L Arm, R Arm, L Upper Leg, R Upper Leg, Chest, Abdomen Shower/Bathe Self (QC): 3 Upper Body Dressing (QC): 5 Toileting Hygiene (QC): 6 Toilet Transfer (QC): 4 OT Custodial Goals Video Game Tester Goals Time Frame: Sep 24, 2019 Eating (QC): 6 Oral Hygiene (QC): 6 Toileting Hygiene (QC): 6 Shower/Bathe Self (QC): 5 Upper Body Dressing (QC): 6 Lower Body Dressing (QC): 6 On/Off Footwear (QC): 6 Additional Goals: 1-Demonstrate ADL Tasks, 2-Verbalize Understanding, 3-ImproveStrength/Alexsandra 1=Demonstrate adherence to instructed precautions during ADL tasks. 2=Patient will verbalize/demonstrate understanding of assistive devices/modifications for ADL. 3=Patient will improve strength/tolerance for activity to enable patient to perform ADL's. OT Education/Plan Problem List/Assessment Assessment: Decreased Activ Tolerance, Decreased UE Strength, Impaired Coordination, Impaired Funct Balance, Impaired Self-Care Skills Discharge Recommendations Plan/Recommendations: Continue POC Treatment Plan/Plan of Care Patient would benefit from OT for education, treatment and training to promote independence in ADL's, mobility, safety and/or upper extremity function for ADL's. Plan of Care: ADL Retraining, Functional Mobility, UE Funct Exercise/Act Treatment Duration: Sep 24, 2019 Frequency: At least 5 of 7 days/Wk (IRF) Estimated Hrs Per Day: 1.5 hours per day Agreement: Yes Rehab Potential: Good Time/GCodes Start Time: 13:45 Stop Time: 14:35 Total Time Billed (hr/min): 50 Billed Treatment Time 1 visit-ADL 3 (50 min) Co-treat with PT 50 min CARMINE BELTRAN Sep 10, 2019 14:52
--- NOTE | 2019-09-10 15:07 | Physical Therapy Evaluation ---
PT Evaluation-General Medical Diagnosis Admission Date Sep 10, 2019 at 13:10 Medical Diagnosis: AF-RVR Onset Date: August 22, 2019 Therapy Diagnosis Therapy Diagnosis: impaired mobility, strength, endurance, ROM Height/Weight Height (Feet): 5 Height (Inches): 4.00 Weight (Pounds): 183 Weight (Ounces): 5.0 Weight Bear Status Left Lower Extremity: Left Weight Bearing/Tolerated Referral Physician: Dr. Stafford Reason for Referral: Evaluation/Treatment Medical History Additional Medical History PAST MEDICAL HISTORY: arrhythmia, back pain, reflux, osteogenesis imperfecta, hyperlipidemia, sciatica. PAST SURGICAL HISTORY: Ear, right patellar tendon repair, right meniscus repair, incisional herniorrhaphy, cholecystectomy, small finger flexor tendon repair, right oophorectomy, left Achilles repair, colonoscopy. Current History Recent TKA, and patient also had surgery to repair a patellar tendon tear and now has to wear a left leg brace with knee ROM from 0-20 degrees. Reviewed History: Yes Social History Home: Single Level Current Living Status: Friend Entry Into Home: Stairs With Railing PT Steps Into Home: 3 Prior Prior Level of Function SCALE: Activities may be completed with or without assistive devices. 5-Kxhsqsvxhp-esfrtft completes the activity by him/herself with no assistance from a helper. 5-Set-up or Clean-up Assistance-helper sets up or cleans up; patient completes activity. [place] assists only prior to or following the activity. 4-Supervision or Touching Assistance-helper provides verbal cues and/or touching/steadying and/or contact guard assistance as patient completes activity. Assistance may be provided throughout the activity or intermittently. 3-Partial/Moderate Assistance-helper does LESS THAN HALF the effort. [place] lifts, holds or supports trunk or limbs, but provides less than half the effort. 2-Substantial/Maximal Assistance-helper does MORE THAN HALF the effort. [place] lifts or holds trunk or limbs and provides more than half the effort. 4-Ejacoeity-qxnjco does ALL the effort. Patient does none of the effort to complete the activity. Or, the assistance of 2 or more helpers is required for the patient to complete the activity. If activity was not attempted, code reason: 7-Patient Refused. 9-Not Applicable-not attempted and the patient did not perform the activity before the current illness, exacerbation or injury. 10-Not Attempted due to Environmental Limitations-(lack of equipment, weather restraints, etc.). 88-Not Attempted due to Medical Conditions or Safety Concerns. Bed Mobility: 6 Transfers (B,C,W/C): 6 Gait: 6 Stairs: 6 Indoor Mobility (Ambulation): Independent Stairs: Independent SPC PT Evaluation-Current Subjective Patient in recliner pre tx, agrees to PT, has pain of 4/10 in left leg. Patient states she has a blister on her left heel and nursing is aware of it and has been bandaging it. Will be co-treating with OT due to poor patient mobility, strength, endurance, the need to coordinate UE and LE during activity. Pt/Family Goals to be independent at home Objective Patient Orientation: Person, Place, Situation left leg brace ROM/Strength ROM Lower Extremities WNL on right LE, LLE NT Sensory Vision: Wears Glasses Hearing: Functional Sensation Right Lower Extremit: Intact Sensation Left Lower Extremity: Intact Transfers Roll Left to Right (QC): 6 Sit to Lying (QC): 6 Lying to Sitting/Side of Bed(Q: 6 Sit to Stand (QC): 6 Chair/Gxf-lk-Gldsv Xfer(QC): 6 Toilet Transfer (QC): 6 Car Transfer (QC): 88 Patient performs bed mobility and transfers with independence. Patient cannot perform a car transfer from the passenger side because her leg brace prevents her from getting in on that side. Patient has some difficulty with getting her leg leg into bed be can do it without assist. Gait Does the Patient Walk?: Yes Mode of Locomotion: Walk Anticipated Mode of Locomotion: Walk Walk 10 feet (QC): 6 Walk 50 ft with 2 Turns(QC): 6 Walk 150 ft (QC): 6 Walking 10ft/uneven surface-QC: 4 Distance: 150', 120'x3 Gait Assistive Device: FWW Comments/Gait Description Patient can ambulate 150' with a rolling walker with independence (including 50' with at least 2 turns of 90 degrees but needs SBA for 10' over an uneven surface), patient ambulates slow but steady, decreased weight on left leg. Wheelchair Training Does the Pt Use a Wheelchair?: No Wheel 50 ft with 2 turns (QC): 9 Wheel 150 ft (QC): 9 Stairs #of Steps: 1 1 Step (curb) (QC): 4 4 Steps (QC): 88 12 Steps (QC): 88 Walking Assistive Device: Walker Patient can go up and down 1 step using a rolling walker with SBA, cues for foot placement. Balance Sitting Static: Normal Sitting Dynamic: Normal Standing Static: Good Standing Dynamic: Good Picking up an Object (QC): 88 Treatment dressing, bathing, grooming. PT performed bed mobility and transfers and ambulation and assist with balance and positioning during bathing and dressing and grooming, OT performed grooming and bathing and dressing and assist with safety and positioning during activity. Assessment/Needs Patient has impaired mobility, strength, endurance, ROM. She has some pain and swelling in left calf, nurse notified. Patient in recliner post tx with nurse call, phone, tray, all needs met. Rehab Potential: Fair PT Short Term Goals Short Term Goals Time Frame: Sep 17, 2019 Roll Left & Right: 6 Sit to lyin Lying to sitting on side of be: 6 Sit to stand: 6 Chair/dyf-jc-dymav transfer: 6 Toilet transfer: 6 Walk 10 feet: 6 Walk 50 feet with two turns: 6 Walk 150 feet: 6 Walking 10ft on uneven surface: 5 1 step (curb): 4 4 steps: 4 PT Health Analyst Goals Health Analyst Goals PT Health Analyst Goals Time Frame: Oct 01, 2019 Roll Left & Right (QC): 6 Sit to Lying (QC): 6 Lying-Sitting on Side/Bed(QC): 6 Sit to Stand (QC): 6 Chair/Age-hy-Kkcbo Xfer(QC): 6 Toilet Transfer (QC): 6 Car Transfer (QC): 6 Does the Patient Walk: Yes Walk 10 feet (QC): 6 Walk 50ft with 2 Turns (QC): 6 Walk 150 ft (QC): 6 Walking 10ft on Uneven Surface: 6 1 Step (curb) (QC): 6 4 Steps (QC): 6 12 Steps (QC): 6 Picking up an Object (QC): 88 Does the Pt use WC or Scooter?: No Wheel 50 feet with 2 turns (QC: 9 Wheel 150 feet: 9 PT Plan Problem List Problem List: Activity Tolerance, Functional Strength, Safety, Balance, Gait, Transfer Treatment/Plan Treatment Plan: Continue Plan of Care Treatment Plan: Education, Functional Activity Alexsandra, Functional Strength, Gait, Safety, Therapeutic Exercise, Transfers Treatment Duration: Oct 01, 2019 Frequency: At least 5 of 7 days/Wk (IRF) Estimated Hrs Per Day: 1.5 hours per day Patient and/or Family Agrees t: Yes Safety Risks/Education Patient Education: Gait Training, Transfer Techniques, Steps, Reviewed Precautions, Correct Positioning, Reviewed Don/Doff Brace, Safety Issues Teaching Recipient: Patient Teaching Methods: Demonstration, Discussion Response to Teaching: Reinforcement Needed Discharge Recommendations Plan Patient will perform bed mobility and transfer training, balance and endurance t raining, functional strengthening, stair training, gait training, and education, to improve functional mobility and independence at home. Therapy Discharge Recommendati: Home & Family Time/GCodes Time In: 1310 Time Out: 1500 Total Billed Treatment Time: 100 Total Billed Treatment 1 visit EVM 30' FA 70' Co-treated with OT for 70 min. PT eval from [id number], OT eval from [id number], co-treat from [id number]. VICENTE TORO PT Sep 10, 2019 15:07
--- NOTE | 2019-09-10 15:08 | PM&R Post Admission Assessment ---
PM&R Date of Visit: Sep 10, 2019 Time of Visit: 15:00 History of Present Illness CC: Debility following VDRF due to PNA and ARF s/p left knee replacement with additional tendon rupture repair HPI: This is a 64yoWF known to me from recent IRF course for 4 days prior to moving to ICU after fever and tachycardic and ultimately required vent management along with IV abx. Patient remained on vent for a few days and ultimately weaned. Urination and bowel function has returned to normal and pain is still an issue from the left knee surgery since she has not had therapy since critically ill. Nurse noted left leg edema and pain and + Shawn's sign after PT brought it to their attention and USG was ordered confirming DVT so DC Lovenox and started on treatment dose of Eliquis but noted patient remained on Lovenox the entire hospital course while in ICU and prior to that was on it in IRF and post op on med-surg prior to IRF. Patient has just completed Meropenem for PNA. No dyspnea noted and overall she feels ready to recover in the IRF. Past Jxregwl-Iiqbsv-Xuuihh Hx Past Med/Social Hx: Reviewed Nursing Past Med/Soc Hx, Reviewed and Corrections made Patient Social History Marrital Status: cohabiting Employed/Student: employed Alcohol Use: Denies Use Smoking Status: Current Everyday Smoker Type Used: Cigarettes Recent Hopitalizations: No Immunizations Up To Date Date of Influenza Vaccine: Jan 10, 2017 Seasonal Allergies Seasonal Allergies: Yes Past Medical History Surgeries: Orthopedic Respiratory: Pneumonia Cardiac: High Cholesterol, Hypertension, Irregular Heartbeat Reproductive: No Sexually Transmitted Disease: No HIV/AIDS: No Female Reproductive Disorders: Ovarian Cyst Gastrointestinal: Gastroesophageal Reflux Musculoskeletal: Arthritis, Chronic Back Pain Loss of Vision: Bilateral History of Blood Disorders: No Adverse Reaction to Blood Loza: No (N/A) Family History Alcoholism G8 BROTHER, Onset:25's - 30 Arthritis 19 MOTHER, , Age:60 years and older G8 SISTER Cardiovascular disease 19 FATHER, , Age:60 years and older 19 MOTHER, , Age:60 years and older G8 BROTHER G8 BROTHER G8 BROTHER G8 SISTER G8 SISTER Cataracts 19 MOTHER, , Age:60 years and older G8 BROTHER Colon cancer G8 BROTHER G8 BROTHER Glaucoma 19 MOTHER, , Age:60 years and older Respiratory disorder G8 BROTHER Cancer, CAD Under 55 Years Old, Lung Disease Self Care: Independent Functional Cognition: Independent 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 Drive Self: Yes Eatin (Using clinical judgment, pt is able to set own meal up and use regular utensils to eat.) Oral Hygiene: 6 Shower/Bathe Self: 3 Upper Body Dressin Lower Body Dressin On/Off Footwear: 2 Toileting Hygiene: 6 Toilet Transfer: 4 PM&R Allergy/Meds/Data Review Allergies Coded Allergies: cephalexin (Unverified Adverse Reaction, Intermediate, VOMITING, 08/22/19) pravastatin (Unverified Adverse Reaction, Mild, NAUSEA, 08/22/19) Home Medications Scheduled Acetaminophen (Tylenol), 650 MG PO TID, (Reported) Aspirin (Aspirin), 81 MG PO DAILY, (Reported) Atorvastatin Calcium (Atorvastatin Calcium), 10 MG PO HS, (Reported) Famotidine (Acid Medicine Man (FAMOTIDINE)), 40 MG PO DAILY, (Reported) Metoprolol Succinate (Metoprolol Succinate), 25 MG PO BID, (Reported) Oxycodone HCl/Acetaminophen (Percocet 5-325 mg Tablet), 1 TAB PO Q4H Current Medications Current Medications Reviewed Review of Systems Constitutional: see HPI, malaise, weakness EENTM: no symptoms reported Respiratory: cough Cardiovascular: no symptoms reported Gastrointestinal: no symptoms reported Genitourinary: no symptoms reported Musculoskeletal: joint pain Skin: no symptoms reported Psychiatric/Neurological: Depressed All Other Systems Reviewed Negative Unless Noted: Yes Physical Exam Physical Exam Vital Signs Capillary Refill : Height, Weight, BMI Height: 5'4.00" Weight: 183lbs. 5.0oz. 83.922967zg; 35.43 BMI Method:Stated General Appearance: No Apparent Distress, WD/WN, Chronically ill Eyes: Bilateral Eye Normal Inspection, Bilateral Eye PERRL HEENT: PERRL/EOMI, Normal ENT Inspection, Pharynx Normal Neck: Full Range of Motion, Normal Inspection, Non Tender, Supple, Carotid Bruit Respiratory: Chest Non Tender, Lungs Clear, No Accessory Muscle Use, No Respiratory Distress, Decreased Breath Sounds Cardiovascular: Regular Rate, Rhythm, No Edema, No Gallop, No JVD, No Murmur, Normal Peripheral Pulses Gastrointestinal: Normal Bowel Sounds, No Organomegaly, No Pulsatile Mass, Non Tender, Soft Back: Normal Inspection, No CVA Tenderness, No Vertebral Tenderness Extremity: Normal Capillary Refill, Normal Inspection, Normal Range of Motion (except left knee in immoblizer), Non Tender, No Calf Tenderness, No Pedal Edema Neurologic/Psychiatric: Alert, Oriented x3, No Motor/Sensory Deficits, Normal Mood/Affect Skin: Normal Color, Warm/Dry Lymphatic: No Adenopathy PM&R Medical Assessment & Plan REHAB/MEDICAL ASSESSMENT AND PLAN: REHAB IMPAIRMENT GROUP: Left knee replacement with tendon rupture repair in revision then VDRF due to PNA and ARF now in need of recovery ETIOLOGIC DIAGNOSIS: Left knee replacement with tendon rupture repair in revision then VDRF due to PNA and ARF now in need of recovery The comorbidities that impact the patients function and/or functional outcome by: recent critical illness requiring vent management and h/o smoking and now acute DVT left leg in immobilizer REHAB PLAN: The patient is being admitted to our comprehensive inpatient rehabilitation facility and can tolerate the intensity of service consisting of at least: 180 minutes of therapy a day, 5 out of 7 days a week Rehab treatment will consist of: PT OT will focus on regaining function of left leg while building stamina after VDRF and PNA and ARF The patient/family has a good understanding of our discharge process and will benefit from an interdisciplinary inpatient rehabilitation program. The patient has potential to make improvement and is in need of at least two of the following multidisciplinary therapies including but not limited to physical, occupational, speech, and prosthetics and orthotics. Additionally the patient will need services from respiratory, nutritional services, wound care, psychology, etc. (Customize this to each patient). Given the patients complex condition and risk of further medical complications, rehabilitation services cannot be safely or effectively provided at a lower level of care such as a [facility] facility. BARRIERS TO DISCHARGE: Recent critical illness ESTIMATED LOS: 7 days DISPOSITION: Home RELEVANT CHANGES SINCE PREADMISSION SCREENING: I have compared the patients medical and functional status at the time of the preadmission screening and there are: no changes PROGNOSIS: Good REHABILITATION GOALS: 1. PT OT will focus on regaining function of left leg while building stamina after VDRF and PNA and ARF All the above goals were reviewed with the patient and he/she is in agreement. By signing this document, I acknowledge that I have personally performed a full physical examination on this patient within 24 hours of admission to this inpatient rehabilitation facility and have determined the patient to be able to tolerate the above course of treatment at an intensive level for a reasonable period of time. I will be completing a detailed individualized Plan of Care for this patient by day #4 of the patients stay based upon the Preadmission Screen, the Post-Admission Evaluation, and the therapy evaluations. Admission Dx/Comorbidities: (1) S/P total knee arthroplasty Status: Acute ICD Codes: Z96.659 - Presence of unspecified artificial knee joint (2) Acute respiratory failure with hypoxia Status: Resolved ICD Codes: J96.01 - Acute respiratory failure with hypoxia (3) Candidiasis of skin Status: Acute ICD Codes: B37.2 - Candidiasis of skin and nail (4) Endotracheally intubated Status: Resolved ICD Codes: Z97.8 - Presence of other specified devices (5) Severe sepsis Status: Resolved ICD Codes: A41.9 - Sepsis, unspecified organism; R65.20 - Severe sepsis without septic shock (6) Lactic acidosis Status: Resolved ICD Codes: E87.2 - Acidosis (7) Multifocal pneumonia Status: Acute ICD Codes: J18.9 - Pneumonia, unspecified organism (8) Osteoarthritis of left knee Status: Chronic ICD Codes: M17.12 - Unilateral primary osteoarthritis, left knee (9) Quadriceps tendon rupture Status: Acute ICD Codes: S76.119A - Strain of unspecified quadriceps muscle, fascia and tendon, initial encounter (10) Tachycardia ICD Codes: R00.0 - Tachycardia, unspecified (11) Fever ICD Codes: R50.9 - Fever, unspecified (12) HLD (hyperlipidemia) Status: Chronic ICD Codes: E78.5 - Hyperlipidemia, unspecified (13) HTN (hypertension) Status: Chronic ICD Codes: I10 - Essential (primary) hypertension (14) GERD (gastroesophageal reflux disease) Status: Chronic ICD Codes: K21.9 - Gastro-esophageal reflux disease without esophagitis (15) Cardiac arrhythmia ICD Codes: I49.9 - Cardiac arrhythmia, unspecified (16) Smoker ICD Codes: F17.200 - Nicotine dependence, unspecified, uncomplicated JUAN JOSE SNYDER DO Sep 10, 2019 15:08
--- NOTE | 2019-09-10 15:13 | Occupational Ther Daily Note ---
OT Current Status-Daily Note Subjective No pain reported. Appearance Pt. is in bathroom. Agrees to work with OT. Mental Status/Objective Patient Orientation: Person, Place, Time, Situation ADL-Treatment Therapy Code Descriptions/Definitions Functional [place] Measure: 0=Not Assessed/NA 4=Minimal Assistance 1=Total Assistance 5=Supervision or Setup 2=Maximal Assistance 6=Modified [place] 3=Moderate Assistance 7=Complete IndependenceSCALE: Activities may be completed with or without assistive devices. 7-Bkadxkhgkm-yiswwwe completes the activity by him/herself with no assistance from a helper. 5-Set-up or Clean-up Assistance-helper sets up or cleans up; patient completes activity. [place] assists only prior to or following the activity. 4-Supervision or Touching Assistance-helper provides verbal cues and/or touching/steadying and/or contact guard assistance as patient completes activity. Assistance may be provided throughout the activity or intermittently. 3-Partial/Moderate Assistance-helper does LESS THAN HALF the effort. [place] lifts, holds or supports trunk or limbs, but provides less than half the effort. 2-Substantial/Maximal Assistance-helper does MORE THAN HALF the effort. [place] lifts or holds trunk or limbs and provides more than half the effort. 1-Dxjkbilwa-yeebds does ALL the effort. Patient does none of the effort to complete the activity. Or, the assistance of 2 or more helpers is required for the patient to complete the activity. If activity was not attempted, code reason: 7-Patient Refused. 9-Not Applicable-not attempted and the patient did not perform the activity before the current illness, exacerbation or injury. 10-Not Attempted due to Environmental Limitations-(lack of equipment, weather restraints, etc.). 88-Not Attempted due to Medical Conditions or Safety Concerns. On/Off Footwear: 2 Pt. seen for co-treatment with PT due to need of skilled assist x 2 for maximum achievement of goals. OT continued with skills and ADL training while PT worked on ambulation during conversation about ADLs. Pt. able to doff slipper sock with dressing stick with cues and increased time. Pt. has padding on left heel due to wound, but is careful to go around this. Attempts to don sock using sock aide. Due to brace length had difficulty with this. Problem solved with pt. better solutions, such as unfastening brace or sitting on bed with leg extended to reach it. Pt. ambulated to and from room to therapy gym with CGA/SBA for safety. All needs met back in room. Education OT Patient Education: Correct positioning, Modified ADL techniques, Progress toward Goal/Update tx plan, Purpose of tx/functional activities, Reviewed precautions, Rehab process, Transfer techniques Teaching Recipient: Patient Teaching Methods: Demonstration, Discussion Response to Teaching: Verbalize Understanding, Return Demonstration OT Mix Chemist Goals [facility] Goals Time Frame: Sep 24, 2019 Eating (QC): 6 Oral Hygiene (QC): 6 Toileting Hygiene (QC): 6 Shower/Bathe Self (QC): 5 Upper Body Dressing (QC): 6 Lower Body Dressing (QC): 6 On/Off Footwear (QC): 6 Additional Goals: 1-Demonstrate ADL Tasks, 2-Verbalize Understanding, 3- ImproveStrength/Alexsandra 1=Demonstrate adherence to instructed precautions during ADL tasks. 2=Patient will verbalize/demonstrate understanding of assistive devices/modifications for ADL. 3=Patient will improve strength/tolerance for activity to enable patient to perform ADL's. OT Education/Plan Problem List/Assessment Assessment: Decreased Activ Tolerance, Impaired I ADL's, Impaired Self-Care Skills Discharge Recommendations Plan/Recommendations: Continue POC Therapy Discharge Recommendati: Home & Family, Post Acute OT Equpiment Recommendations-D/C: Hip Kit Treatment Plan/Plan of Care Treatment,Training & Education: Yes Patient would benefit from OT for education, treatment and training to promote independence in ADL's, mobility, safety and/or upper extremity function for ADL's. Plan of Care: ADL Retraining, Functional Mobility, UE Funct Exercise/Act Treatment Duration: Sep 24, 2019 Frequency: At least 5 of 7 days/Wk (IRF) Estimated Hrs Per Day: 1.5 hours per day Agreement: Yes Rehab Potential: Good Time/GCodes Start Time: 14:35 Stop Time: 15:05 Total Time Billed (hr/min): 30 Billed Treatment Time 1, ADL x 15minutes, FA x 15minutes [id number] Co-treat with PT. Please see above note for designated roles. [id number] OT assist. KIRAN PENNINGTON OT Sep 10, 2019 15:13
[2019-09-10] MEDS ORDERED: ACETAMINOPHEN 325 MG TABLET PO PRN (15:15)
[2019-09-10] MEDS ORDERED: ONDANSETRON 4 MG/2 ML (SDV) Z0FRAN IV PRN (15:15)
[2019-09-10 15:50] VITALS: BP 110/72
--- NOTE | 2019-09-10 17:39 | Diagnostic Imaging Report ---
PROCEDURE: US left lower extremity venous. TECHNIQUE: Multiple real-time grayscale images were obtained over the left lower extremity in various projections. Additional duplex Doppler and color Doppler images were also obtained. INDICATION: Pain and redness. FINDINGS: The common and superficial femoral veins are patent and show normal flow and normal compressibility. At the level of the lower popliteal vein, there is lack of compressibility and incomplete color Doppler filling consistent with a partially occlusive thrombus. This is new when compared to the exam of 09/03/2019. IMPRESSION: Likely a new incompletely occlusive lower popliteal vein clot. The common and superficial femoral veins are patent. No other suspected thrombus. Dictated by: Dictated on workstation # [id number]
[2019-09-10] MEDS: APIXABAN 5 MG (ELIQUIS) TABLET PO SCH (18:17)
[2019-09-10] MEDS: RT-ALBUTEROL INHALER HFA (VENTOLIN HFA) 8 GM IH SCH (20:58)
[2019-09-10] MEDS: polyethylene glycoL POWDER 17 GM (MIRALAX) PACK PO SCH (20:58)
[2019-09-10] MEDS: NYSTATIN CREAM (MYCOSTATIN) 30 GM TUBE TP SCH (20:58)
[2019-09-10] MEDS: FAMOTIDINE 20 MG (PEPCID) TABLET PO SCH (20:59)
[2019-09-10] MEDS: SENNA W/DOCUSATE (SENOKOT S) TABLET PO SCH (20:59)
[2019-09-10] MEDS: SENNOSIDES 8.6 MG (SENOKOT) TAB PO SCH (20:59)
[2019-09-10] MEDS: DOCUSATE SODIUM 100 MG (COLACE) CAP PO SCH (20:59)
[2019-09-10] MEDS ORDERED: polyethylene glycoL POWDER 17 GM (MIRALAX) PACK PO SCH (21:00)
[2019-09-10] MEDS: diphenhydrAMINE 25 MG TAB (BENADRYL) PO PRN (23:27)
[2019-09-11 05:49] LABS: BASOPHILS % (AUTO) 0 % (0-10); EOSINOPHILS # (AUTO) 0.2 10^3/uL (0.0-0.3); EOSINOPHILS % (AUTO) 2 % (0-10); HEMATOCRIT 34 % (35-52); LYMPHOCYTES # (AUTO) 2.6 X 10^3 (1.0-4.0); LYMPHOCYTES % (AUTO) 32 % (12-44); MEAN CORPUSCULAR HEMOGLOBIN 28 PG (25-34); MEAN CORPUSCULAR HGB CONC 30 G/DL (32-36); MEAN CORPUSCULAR VOLUME 94 FL (80-99); MEAN PLATELET VOLUME 8.3 FL (7.4-10.4); MONOCYTES # (AUTO) 0.9 X 10^3 (0.0-1.0); MONOCYTES % (AUTO) 11 % (0-12); NEUTROPHILS # (AUTO) 4.4 X 10^3 (1.8-7.8); NEUTROPHILS % (AUTO) 54 % (42-75); PLATELET COUNT 629 10^3/uL (130-400); RED CELL DISTRIBUTION WIDTH 16.8 % (10.0-14.5)
[2019-09-11 06:07] LABS: BUN/CREATININE RATIO 20; CARBON DIOXIDE 25 MMOL/L (21-32); CHLORIDE 100 MMOL/L (98-107); CREATININE SERUM 0.74 MG/DL (0.60-1.30); POTASSIUM 4.5 MMOL/L (3.6-5.0); SODIUM 137 MMOL/L (135-145)
[2019-09-11 06:08] LABS: ALANINE AMINOTRANSFERASE 24 U/L (0-55); ALBUMIN 3.8 GM/DL (3.2-4.5); ALKALINE PHOSPHATASE 118 U/L (40-136); BILIRUBIN,TOTAL 0.8 MG/DL (0.1-1.0); CALCIUM 9.8 MG/DL (8.5-10.1); GFR ESTIMATED > 60; GLUCOSE 106 MG/DL (70-105); TOTAL PROTEIN 7.5 GM/DL (6.4-8.2)
[2019-09-11] MEDS: APIXABAN 5 MG (ELIQUIS) TABLET PO SCH ×3 (06:09→20:37)
[2019-09-11 06:17] VITALS: BP 129/80
[2019-09-11] MEDS ORDERED: ENOXAPARIN 40 MG/0.4 ML (LOVENOX) SYR SC SCH ×2 (07:00)
--- NOTE | 2019-09-11 07:14 | Individualized Plan of Care ---
Individualized Plan of Care Rehab Nursing IPOC Order Admission Date Sep 10, 2019 at 13:10 Current Orders Orders Admission Order(Inpt,Obs,Sdc) (09/10/19 12:14) Vital Signs: Per Unit Policy ( 08,16,00 (09/10/19 12:14) System Support Administrator-Inpt Rehab Con (09/10/19 12:14) Rehab Nursing Orders-Ipoc (09/10/19 12:14) Physical Therapy Rehab Orders (09/10/19 12:14) Occupational Therapy Rehab Ord (09/10/19 12:14) Speech Therapy Rehab Orders (09/10/19 12:14) Cbc With Automated Diff (09/11/19 06:00) Comprehensive Metabolic Panel (09/11/19 06:00) General/Regular (09/10/19 Dinner) Intake & Output ,14,22 (09/10/19 12:14) Precautions (Aru) (09/10/19 12:14) Rehab-Intensity Of Therapy (09/10/19 12:14) Initiate Admission Nursing Pro .admission (09/10/19 12:14) Alprazolam Tablet (Xanax Tablet) (09/10/19 12:15) Calcium Carbonate Chew Tablet (Antacid C (09/10/19 12:15) Diphenhydramine Tablet (Benadryl Tablet) (09/10/19 12:15) Docusate Sodium Capsule (Colace Capsule) (09/10/19 12:15) Bisacodyl Suppository (Dulcolax Supposit (09/10/19 12:15) Lactulose Oral Solution (Enulose Oral So (09/10/19 12:15) Na Phos/Na Biphos Enema (Fleet Enema Cristian (09/10/19 12:15) Guaifenesin/Codeine Syrup (Robitussin Ac (09/10/19 12:15) Loperamide Tablet (Imodium Tablet) (09/10/19 12:15) Melatonin Tablet (Melatonin Tablet) (09/10/19 12:15) Polyethylene Glycol Powder Pkt (Miralax (09/10/19 21:00) Ondansetron Oral Dissolve Tab (Zofran (09/10/19 12:15) Senna S Tablet (Senokot S Tablet) (09/10/19 21:00) Code/Resuscitation (09/10/19 12:14) Initiate Admission Nursing Pro .admission (09/10/19 12:14) Us Venous Lower Ext Lt (09/10/19 14:46) Albuterol Inhaler (Ventolin Hfa) (09/10/19 21:00) Diphenhydramine Tablet (Benadryl Tablet) (09/10/19 15:15) Calcium Carbonate Chew Tablet (Antacid C (09/10/19 15:15) Docusate Sodium Capsule (Colace Capsule) (09/10/19 21:00) Bisacodyl Suppository (Dulcolax Supposit (09/10/19 15:15) Enoxaparin Injection (Lovenox Injection) (09/11/19 07:00) Famotidine Tablet (Pepcid Tablet) (09/10/19 21:00) Fluconazole Tablet (Diflucan Tablet) (09/11/19 09:00) Lactulose Oral Solution (Enulose Oral So (09/10/19 15:15) Melatonin Tablet (Melatonin Tablet) (09/10/19 15:15) Polyethylene Glycol Powder Pkt (Miralax (09/10/19 21:00) Nystatin Cream (Mycostatin Cream) (09/10/19 21:00) Sennosides Tablet (Senokot Tablet) (09/10/19 21:00) Acetaminophen Tablet/Caplet (Tylenol T (09/10/19 15:15) Ondansetron Injection (Zofran Injectio (09/10/19 15:15) Ondansetron Oral Dissolve Tab (Zofran (09/10/19 15:15) Metoprolol Succinate (Xl) Tab (Toprol Xl (09/11/19 09:00) Oxycodone Immediate Rel Tablet (Oxyir Ta (09/10/19 15:15) Consult Cardiology (09/10/19 15:02) Mat Initiate Protocol (09/10/19 15:02) Patient Visit (09/10/19 ) Pt Eval Moderate Complexity (09/10/19 ) Functional Activities, Ea 15 (09/10/19 ) Ensure Enlive (09/11/19 Breakfast) Ambulate 08,12,20 (09/10/19 15:45) Sequential Compression Device Q4H (09/10/19 15:45) Dvt/Vte Risk - Notifiy Physici Q4H (09/10/19 15:45) Apixaban Tablet (Eliquis Tablet) (09/10/19 18:00) Patient Visit (09/11/19 ) Gait Training, Ea 15 Min (09/11/19 ) Functional Activities, Ea 15 (09/11/19 ) Exercise Therap, Ea 15 Min (09/11/19 ) Patient Visit (09/11/19 ) Speech Sound Lang Comp (09/11/19 ) Patient Visit (09/11/19 ) Functional Activities, Ea 15 (09/11/19 ) Rehab Nursing Orders: Ongoing Assess. of Function Status, Bladder Training, Bowel Management, Bowel Training, Disease Management & Educaiton, DVT Prophylaxis, Fall Prevention, Fluid/Electrolyte/Nutrition Mgmt, Infection Prevention, Medication Management & Education, Management of Risks & Complications, Management of Skin Intergrity, Nutrition Management, Pain Management, Patient/Family Support, Safety Management Intensity of Therapy to be met Patient to be seen: Min.3h per day/5 of 7d PT IPOC Problem List: Activity Tolerance, Functional Strength, Safety, Balance, Gait, Transfer Treatment Plan: Continue Plan of Care Education, Functional Activity Alexsandra, Functional Strength, Gait, Safety, Therapeutic Exercise, Transfers Treatment Duration: Oct 01, 2019 Frequency: At least 5 of 7 days/Wk (IRF) Estimated Hrs Per Day: 1.5 hours per day OT IPOC Problems: Decreased Activ Tolerance, Impaired I ADL's, Impaired Self-Care Skills OT Treatment, Training and Edu: Yes Plan of Care: ADL Retraining, Functional Mobility, UE Funct Exercise/Act Treatment Duration: Sep 24, 2019 Frequency: At least 5 of 7 days/Wk (IRF) Estimated Hrs Per Day: 1.[address] IPOC Speech Therapy Treatment Plan: Discontinue ST Treatment Duration: Sep 11, 2019 Frequency: Modified Program (IRF) Estimated Hrs Per Day: Other System Support Administrator/Case Mgmt System Support Administrator/Case Managemen: Discharge Planning Dietitian/Global Supply Chain Director Dietitian/Global Supply Chain Director to monitor nutritional status and make changes and/or recommendations as needed and work with speech pathology on dietary upgrades as the occur. Physician IPOC Medical Issues being managed closely and that require the 24 hour availability of a physician: Recent VDRF with bilateral PNA requires close monitoring of respiratory status in case decompensation occurs again Medical Issues: Bowel/Bladder Function, Fluid/Electrolyte/Nutrition Balance, Infection Protection, Pain Management Brief Synthesis of Preadmission Screen, Post-Admission Evaluation, and Therapy Evaluations: PT OT will focus on regaining strength since critical illness and bilateral PNA and VDRF in order to increase stamina and increase ADL's in order to return home and ultimately return to work Medical Prognosis: Good Anticipated Length of Stay: 7 days JUAN JOSE SNYDER DO Sep 11, 2019 07:14
--- NOTE | 2019-09-11 07:14 | PM&R Progress Note ---
Subjective HPI/CC On Admission Date Seen by Provider: Sep 11, 2019 Time Seen by Provider: 10:00 Subjective/Events-last exam Pt maintained on Eliquis BID for left lower leg DVT and we talked about that quite a bit today since no lapse of the Lovenox during critical illness Will discontinue Telemetry and IV at her request and they are no longer necessary BM two days ago, bowel regimen initiated No longer needs oxygen Overall doing much better Denies any significant issues Conferred with RN Reviewed therapy notes Checked meds and labs Review of Systems Pulmonary: Dyspnea Musculoskeletal: leg pain Objective Exam Vital Signs Vital Signs Date Time Temp Pulse Resp B/P (MAP) Pulse Ox O2 Delivery O2 Flow Rate FiO2 09/11/19 18:45 98 Room Air 09/11/19 16:21 36.8 86 16 123/77 (92) Capillary Refill : Less Than 3 Seconds General Appearance: No Apparent Distress, WD/WN, Chronically ill HEENT: PERRL/EOMI, Normal ENT Inspection, Pharynx Normal Neck: Full Range of Motion, Normal Inspection, Non Tender, Supple, Carotid Bruit Respiratory: Chest Non Tender, Lungs Clear, No Accessory Muscle Use, No Respiratory Distress, Decreased Breath Sounds Cardiovascular: Regular Rate, Rhythm, No Edema, No Gallop, No JVD, No Murmur, Normal Peripheral Pulses Gastrointestinal: Normal Bowel Sounds, No Organomegaly, No Pulsatile Mass, Non Tender, Soft Back: Normal Inspection, No CVA Tenderness, No Vertebral Tenderness Extremity: Normal Capillary Refill, Normal Inspection, Normal Range of Motion (except left knee in immoblizer), Non Tender, No Calf Tenderness, No Pedal Edema Neurologic/Psychiatric: Alert, Oriented x3, No Motor/Sensory Deficits, Normal Mood/Affect Skin: Normal Color, Warm/Dry Lymphatic: No Adenopathy Results/Procedures Lab Laboratory Tests 09/11/19 05:35 Patient resulted labs reviewed. FIM Transfers Therapy Code Descriptions/Definitions Functional [place] Measure: 0=Not Assessed/NA 4=Minimal Assistance 1=Total Assistance 5=Supervision or Setup 2=Maximal Assistance 6=Modified [place] 3=Moderate Assistance 7=Complete IndependenceSCALE: Activities may be completed with or without assistive devices. 8-Lhjjgooszu-bgigfhd completes the activity by him/herself with no assistance from a helper. 5-Set-up or Clean-up Assistance-helper sets up or cleans up; patient completes activity. [place] assists only prior to or following the activity. 4-Supervision or Touching Assistance-helper provides verbal cues and/or touching/steadying and/or contact guard assistance as patient completes activity. Assistance may be provided throughout the activity or intermittently. 3-Partial/Moderate Assistance-helper does LESS THAN HALF the effort. [place] lift s, holds or supports trunk or limbs, but provides less than half the effort. 2-Substantial/Maximal Assistance-helper does MORE THAN HALF the effort. [place] lifts or holds trunk or limbs and provides more than half the effort. 7-Wtbqgevtk-nvtokd does ALL the effort. Patient does none of the effort to complete the activity. Or, the assistance of 2 or more helpers is required for the patient to complete the activity. If activity was not attempted, code reason: 7-Patient Refused. 9-Not Applicable-not attempted and the patient did not perform the activity before the current illness, exacerbation or injury. 10-Not Attempted due to Environmental Limitations-(lack of equipment, weather restraints, etc.). 88-Not Attempted due to Medical Conditions or Safety Concerns. Roll Left to Right (QC): 6 Sit to Lying (QC): 6 Sit to Stand (QC): 6 Chair/Tqc-sx-Mnvsi Xfer(QC): 6 Car Transfer (QC): 88 Gait Training Does the Patient Walk?: Yes Walk 10 feet (QC): 6 Walk 50 ft with 2 Turns(QC): 6 Walk 150 ft (QC): 6 Walking 10ft/uneven surface-QC: 4 Gait Assistive Device: FWW Wheelchair Training Does the Pt Use a Wheelchair?: No Wheel 50 ft with 2 turns (QC): 9 Wheel 150 ft (QC): 9 Stair Training #of Steps: 1 1 Step (curb) (QC): 4 4 Steps (QC): 88 12 Steps (QC): 88 Balance Picking up an Object (QC): 88 ADL-Treatment Eating (QC): 6 (Using clinical judgment, pt is able to set own meal up and use regular utensils to eat.) Oral Hygiene (QC): 6 Bathing Location: L Arm, R Arm, L Upper Leg, R Upper Leg, Chest, Abdomen Shower/Bathe Self (QC): 3 Upper Body Dressing (QC): 5 Lower Body Dressing (QC): 10 On/Off Footwear (QC): 2 Toileting Hygiene (QC): 6 Toilet Transfer (QC): 4 Assessment/Plan Assessment and Plan Assess & Plan/Chief Complaint Assessment: s/p left total knee replacement Dr Gann 08/22/19 s/p revision due to tendon dysfunction and sent to IRF 08/28/19 then required transfer to ICU for critical illness and VDRF and PNA HLP Cardiac arrhythmia hx Smoker Post op anemia Left lower leg DVT USG 09/10/19 placed on Eliquis x 3 months Plan: Eliquis Monitor BP IRF protocol Pain meds BM regimen (1) S/P total knee arthroplasty Status: Acute (2) Cardiac arrhythmia (3) Smoker (4) Quadriceps tendon rupture Status: Acute (5) Osteoarthritis of left knee Status: Acute (6) HLD (hyperlipidemia) Status: Chronic (7) HTN (hypertension) Status: Chronic (8) GERD (gastroesophageal reflux disease) Status: Chronic (1) S/P total knee arthroplasty Status: Acute (2) Acute respiratory failure with hypoxia Status: Resolved Resolution Date/Time: 09/06/19 @ 11:03 (3) Candidiasis of skin Status: Acute (4) Endotracheally intubated Status: Resolved Resolution Date/Time: 09/05/19 @ 13:37 (5) Severe sepsis Status: Resolved Resolution Date/Time: 09/05/19 @ 13:37 (6) Lactic acidosis Status: Resolved Resolution Date/Time: 09/05/19 @ 13:37 (7) Multifocal pneumonia Status: Acute (8) Osteoarthritis of left knee Status: Chronic (9) Quadriceps tendon rupture Status: Acute (10) Tachycardia (11) Fever (12) HLD (hyperlipidemia) Status: Chronic (13) HTN (hypertension) Status: Chronic (14) GERD (gastroesophageal reflux disease) Status: Chronic (15) Cardiac arrhythmia (16) Smoker JUAN JOSE SNYDER DO Sep 11, 2019 07:14
[2019-09-11] MEDS: RT-ALBUTEROL INHALER HFA (VENTOLIN HFA) 8 GM IH SCH ×2 (07:22→18:45)
[2019-09-11 08:00] VITALS: BP 134/72
[2019-09-11] MEDS ORDERED: fluCOnazole (DIFLUCAN) 100 MG TAB PO SCH (09:00)
--- NOTE | 2019-09-11 09:06 | Progress Note - Cardiology ---
Cardiology SOAP Progress Note Objective: I&O/Vital Signs 09/12/19 09/13/19 21:31 05:31 Temp 36.2 Pulse 77 Resp 16 B/P (MAP) 120/66 (84) Pulse Ox 96 97 O2 Delivery Room Air Room Air 09/13/19 00:00 Intake Total 1020 ml Balance 1020 ml Weight (Pounds): 183 Weight (Ounces): 5.0 Weight (Calculated Kilograms): 83.958694 Constitutional: AAO x 3, well-developed, well-nourished Respiratory: No accessory muscle use, No respiratory distress; chest expansion is symmetric, chest is bilaterally symmetric, lungs clear to auscultation Cardiovascular: regular rate-rhythm; No JVD; S1 and S2 Gastrointestional: No tender; soft, audible bowel sounds Neurologic/Psychiatric: grossly intact (moves extremities) Skin: No rash on exposed areas, No ulcerations on exposed areas Results/Procedures: Labs Procedures NAME: TIM SUTHERLAND [facility] REC#: [id number] PT STATUS: ADM IN : 1955 PHYSICIAN: JUAN JOSE SNYDER DO ADMIT DATE: 09/10/19/[facility] Signed Date of Exam:09/10/19 US VENOUS LOWER EXT LT PROCEDURE: US left lower extremity venous. TECHNIQUE: Multiple real-time grayscale images were obtained over the left lower extremity in various projections. Additional duplex Doppler and color Doppler images were also obtained. INDICATION: Pain and redness. FINDINGS: The common and superficial femoral veins are patent and show normal flow and normal compressibility. At the level of the lower popliteal vein, there is lack of compressibility and incomplete color Doppler filling consistent with a partially occlusive thrombus. This is new when compared to the exam of 09/03/2019. IMPRESSION: Likely a new incompletely occlusive lower popliteal vein clot. The common and superficial femoral veins are patent. No other suspected thrombus. Dictated by: Dictated on workstation # [id number] Dict: 09/10/19 1645 Trans: 09/11/19 0756 [id number] Interpreted by: IGNACIO CLARK Electronically signed by: IGNACIO CLARK 09/11/19 0756 A/P: Assessment: DVT - incompletely occlusive lower popliteal vein clot. The common and superficial femoral veins are patent. No other suspected thrombus. Per u/s of September 10, 2019 Ac resp failure (with transient hypoxia) - extubated on 09-04-2019 - resolved Septic shock post surgery (hypotension now resolved) s/p L total knee arthroplasty on 08/22/19 and quadriceps tendon repair on 08/24/19 Severe, post-op anemia - improved - management per medical services Intermittent sinus tach during this hospitalization Left bundle branch block, chronic History of cardiac catheterization in 2013: mild coronary artery disease; last MPI in March 2019 showing no significant ischemia or infarction, ejection fraction 78 percent. Echo 09/02/19 (Dr Willingham): LVEF 45-50%, no RWMA, mod TR, PASP 40-45 mmHg History of isolated PVCs and few brief runs of nonsustained ventricular tachycardia, she was seen by Dr. Marie and Dr. Lewis as an outpatient. Hyperlipidemia, treated with Lipitor History of mild carotid stenosis H/o tobacco use Plan: Management of DVT per medical services - Eliquis Continue current medication regimen Monitor labs ANITA TREVIÑO Sep 11, 2019 09:05
[2019-09-11] MEDS: DOCUSATE SODIUM 100 MG (COLACE) CAP PO SCH ×2 (09:13→20:41)
[2019-09-11] MEDS: meTOprolol SUCCINATE 100 MG (TOPROL XL) TAB PO SCH (09:14)
[2019-09-11] MEDS: FAMOTIDINE 20 MG (PEPCID) TABLET PO SCH ×2 (09:14→20:39)
[2019-09-11] MEDS: NYSTATIN CREAM (MYCOSTATIN) 30 GM TUBE TP SCH ×3 (09:16→20:42)
[2019-09-11] MEDS: SENNA W/DOCUSATE (SENOKOT S) TABLET PO SCH ×2 (09:17→20:41)
[2019-09-11] MEDS: SENNOSIDES 8.6 MG (SENOKOT) TAB PO SCH ×2 (09:17→20:41)
[2019-09-11] MEDS: polyethylene glycoL POWDER 17 GM (MIRALAX) PACK PO SCH ×2 (09:17→20:41)
--- NOTE | 2019-09-11 09:17 | Physical Therapy Daily Note ---
PT Daily Note-Current Subjective Pt sitting in recliner upon arrival. Pt agrees to PT. Pain Numeric Pain Scale: 4 Location: Left Location Body Site: Calf Pain Description: Ache, Tightness Mental Status Patient Orientation: Person, Place, Time, Situation Attachments: Other-See Comments (Knee Immobilizer) Transfers SCALE: Activities may be completed with or without assistive devices. 8-Kqsdlziuje-mgqfjwy completes the activity by him/herself with no assistance from a helper. 5-Set-up or Clean-up Assistance-helper sets up or cleans up; patient completes activity. [place] assists only prior to or following the activity. 4-Supervision or Touching Assistance-helper provides verbal cues and/or touching/steadying and/or contact guard assistance as patient completes acti vity. Assistance may be provided throughout the activity or intermittently. 3-Partial/Moderate Assistance-helper does LESS THAN HALF the effort. [place] lifts, holds or supports trunk or limbs, but provides less than half the effort. 2-Substantial/Maximal Assistance-helper does MORE THAN HALF the effort. [place] lifts or holds trunk or limbs and provides more than half the effort. 8-Crpxhgsvq-frsjjb does ALL the effort. Patient does none of the effort to complete the activity. Or, the assistance of 2 or more helpers is required for the patient to complete the activity. If activity was not attempted, code reason: 7-Patient Refused. 9-Not Applicable-not attempted and the patient did not perform the activity before the current illness, exacerbation or injury. 10-Not Attempted due to Environmental Limitations-(lack of equipment, weather restraints, etc.). 88-Not Attempted due to Medical Conditions or Safety Concerns. Sit to Stand (QC): 6 Weight Bearing Left Lower Extremity: Left Weight Bearing/Tolerated Gait Training Does the Patient Walk?: Yes Distance: 250', 125' Walk 10 feet (QC): 5 Walk 50 ft with 2 Turns(QC): 5 Walk 150 ft (QC): 5 Gait Persons Needed: 1 Gait Assistive Device: FWW Wheelchair Training Does the Pt Use a Wheelchair?: No Exercises Supine Ex: Quad Set, Straight leg raise, Hip abd/add Supine Reps: 15 Seated Therapy Exercises: Ankle pumps, Long arc quads (R side only), Hip flexion, Kicking activity (R side only) Seated Reps: 20 Treatments Pt transfers from recliner to standing. Pt ambulates in hallway followed by Seated Ex in chair. Pt transfers to standing then to EOB before transferring to Supine on mat. Pt completes Supine Ex then rests at EOB. Pt ambulates back to room at end of Rx. Pt resting in recliner with all needs met, call light in hand. Assessment Current Status: Good Progress Pt tolerates Rx well, occasional report of discomfort in L calf. PT Short Term Goals Short Term Goals Time Frame: Sep 17, 2019 Roll Left & Right: 6 Sit to lyin Lying to sitting on side of be: 6 Sit to stand: 6 Chair/mud-kf-ygjki transfer: 6 Toilet transfer: 6 Walk 10 feet: 6 Walk 50 feet with two turns: 6 Walk 150 feet: 6 Walking 10ft on uneven surface: 5 1 step (curb): 4 4 steps: 4 PT Reverse Logistics Analyst Goals [facility] Goals PT Reverse Logistics Analyst Goals Time Frame: Oct 01, 2019 Roll Left & Right (QC): 6 Sit to Lying (QC): 6 Lying-Sitting on Side/Bed(QC): 6 Sit to Stand (QC): 6 Chair/Kuw-hq-Uflex Xfer(QC): 6 Toilet Transfer (QC): 6 Car Transfer (QC): 6 Does the Patient Walk: Yes Walk 10 feet (QC): 6 Walk 50ft with 2 Turns (QC): 6 Walk 150 ft (QC): 6 Walking 10ft on Uneven Surface: 6 1 Step (curb) (QC): 6 4 Steps (QC): 6 12 Steps (QC): 6 Picking up an Object (QC): 88 Does the Pt use WC or Scooter?: No Wheel 50 feet with 2 turns (QC: 9 Wheel 150 feet: 9 PT Plan Problem List Problem List: Activity Tolerance, Functional Strength, Gait Treatment/Plan Treatment Plan: Continue Plan of Care Treatment Plan: Education, Functional Activity Alexsandra, Functional Strength, Gait, Safety, Therapeutic Exercise, Transfers Treatment Duration: Oct 01, 2019 Frequency: At least 5 of 7 days/Wk (IRF) Estimated Hrs Per Day: 1.5 hours per day Patient and/or Family Agrees t: Yes Safety Risks/Education Patient Education: Gait Training, Transfer Techniques, Correct Positioning, Safety Issues Teaching Recipient: Patient Teaching Methods: Discussion Response to Teaching: Verbalize Understanding Time/GCodes Time In: 800 Time Out: 900 Total Billed Treatment Time: 60 Total Billed Treatment 1, GT (20m), FA (10m) & EX x2 (30m) DAMIAN MEANS SKIP PIT WORKER Sep 11, 2019 09:17
--- NOTE | 2019-09-11 10:55 | Occupational Ther Daily Note ---
OT Current Status-Daily Note Subjective No pain reported. Appearance Pt. up in chair. Agrees to shower. Mental Status/Objective Patient Orientation: Person, Place, Time, Situation Attachments: IV ADL-Treatment Therapy Code Descriptions/Definitions Functional [place] Measure: 0=Not Assessed/NA 4=Minimal Assistance 1=Total Assistance 5=Supervision or Setup 2=Maximal Assistance 6=Modified [place] 3=Moderate Assistance 7=Complete IndependenceSCALE: Activities may be completed with or without assistive devices. 2-Uewjlnsafa-milgdyy completes the activity by him/herself with no assistance from a helper. 5-Set-up or Clean-up Assistance-helper sets up or cleans up; patient completes activity. [place] assists only prior to or following the activity. 4-Supervision or Touching Assistance-helper provides verbal cues and/or touching/steadying and/or contact guard assistance as patient completes activity. Assistance may be provided throughout the activity or intermittently. 3-Partial/Moderate Assistance-helper does LESS THAN HALF the effort. [place] lifts, holds or supports trunk or limbs, but provides less than half the effort. 2-Substantial/Maximal Assistance-helper does MORE THAN HALF the effort. [place] lifts or holds trunk or limbs and provides more than half the effort. 9-Ucetjuqex-qnbnjg does ALL the effort. Patient does none of the effort to complete the activity. Or, the assistance of 2 or more helpers is required for the patient to complete the activity. If activity was not attempted, code reason: 7-Patient Refused. 9-Not Applicable-not attempted and the patient did not perform the activity before the current illness, exacerbation or injury. 10-Not Attempted due to Environmental Limitations-(lack of equipment, weather restraints, etc.). 88-Not Attempted due to Medical Conditions or Safety Concerns. Eating (QC): 6 Oral Hygiene (QC): 5 Shower/Bathe Self (QC): 4 (SBA for shower and CGA for transfers in shower.) Upper Body Dressing (QC): 5 Lower Body Dressing (QC): 3 (Pt. able to doff shorts and underwear, but requires mod assist to don them due to time constraint.) On/Off Footwear: 3 (Mod assist with AE.) Other Treatment Pt agrees to shower. Wound nurse looks at pt's heel while in shower and assesses. Heel positioned on comfortable soft surface during shower. Pt. able to complete all ADLs in shower, including shaving legs. Pt. issued LH sponge and able to wash legs and feet. All needs met. Pt. back in chair in room after ADL process. Education OT Patient Education: Correct positioning, Modified ADL techniques, Progress toward Goal/Update tx plan, Purpose of tx/functional activities, Reviewed precautions, Rehab process, Transfer techniques Teaching Recipient: Patient Teaching Methods: Demonstration, Discussion Response to Teaching: Verbalize Understanding, Return Demonstration OT Ent Nurse Goals Correction Goals Time Frame: Sep 24, 2019 Eating (QC): 6 Oral Hygiene (QC): 6 Toileting Hygiene (QC): 6 Shower/Bathe Self (QC): 5 Upper Body Dressing (QC): 6 Lower Body Dressing (QC): 6 On/Off Footwear (QC): 6 Additional Goals: 1-Demonstrate ADL Tasks, 2-Verbalize Understanding, 3- ImproveStrength/Alexsandra 1=Demonstrate adherence to instructed precautions during ADL tasks. 2=Patient will verbalize/demonstrate understanding of assistive devices/modifications for ADL. 3=Patient will improve strength/tolerance for activity to enable patient to perform ADL's. OT Education/Plan Problem List/Assessment Assessment: Decreased Activ Tolerance, Impaired Funct Balance, Impaired I ADL's, Impaired Self-Care Skills Discharge Recommendations Plan/Recommendations: Continue POC Therapy Discharge Recommendati: Post Acute OT Equpiment Recommendations-D/C: Hip Kit Treatment Plan/Plan of Care Treatment,Training & Education: Yes Patient would benefit from OT for education, treatment and training to promote independence in ADL's, mobility, safety and/or upper extremity function for ADL's. Plan of Care: ADL Retraining, Functional Mobility, UE Funct Exercise/Act Treatment Duration: Sep 24, 2019 Frequency: At least 5 of 7 days/Wk (IRF) Estimated Hrs Per Day: 1.5 hours per day Agreement: Yes Rehab Potential: Fair Time/GCodes Start Time: 09:10 Stop Time: 10:45 Total Time Billed (hr/min): 95 Billed Treatment Time 1, ADL x 6 KIRAN PENNINGTON OT Sep 11, 2019 10:55
--- NOTE | 2019-09-11 11:51 | ST Cognitive Linguistic Eval ---
Speech Evaluation-General Medical Diagnosis AF-RVR Onset Date: August 22, 2019 Therapy Diagnosis Therapy Diagnosis: Cognitive-communication Referral Referring Physician: Dr. Stafford Medical History Reviewed History: Yes Social History Current Living Status: Friend Speech PLF-Current Status Prior Level of Function Patient lived at home with two room mates. She was independent for all of her daily needs. Subjective Patient was pleasant and cooperative with the cognitive assessment. Language Eval: Auditory Comprehends Simple Yes/No Ques: Functional Indent/Objects Multiple Shah: Functional Ident/Pics in Multiple Shah: Functional Follows 1-Step Commands: Functional Follows Complex Directions: Functional Follows General Conversations: Functional Language Eval: Verbal Language Completes Spontaneous Greeting: Functional Produces Auto, Serial Info: Functional Imitates Simple Words/Phrases: Functional Word Finding: Functional Requests Basic Needs: Functional States Basic Personal Info: Functional Expresses Complex Ideas: Functional Objective Cognitive Domain Attention: WNL Memory: WNL Problem Solving: Functional Executive Functions: WNL Visuospatial Skills: WNL Composite Severity Rating: WNL Clock Drawing Severity Rating: WNL Objective Formal/Standardized Tests [facility] Status ([facility]) Results 28/30, within normal range of function Oral Motor/Speech Production Within Normal Limits Impression Patient is a pleasant 64 year old female who was re-admitted to the ARU s/p knee replacement surgery with medical status changes. Patient completed the UMS with a score of 28/30 obtained. This score falls in the normal range of function. Patient does not require further ST skills at this time. Speech Patient Assess Expression of Ideas/Wants: Expression (4) Understanding Verbal Content: Understands (4) Brief Interview-Mental Status: Yes Repetition of Three Words: Three (3) Temporal Orientation: Year: Correct (3) Temporal Orientation: Month: Accurate within 5 days(2) Temporal Orientation: Day: Correct (1) Recall : Wear to say "Sock": Yes, no cue required (2) Recall : Color: Yes, no cue required (2) Recall : Bed: Yes,after cueing (1) Memory/Recall Ability: Current season, Location of own room, Staff names and faces, That he or she is in a hsp/hsp unit Speech-Plan Patient/Family Goals Patient/Family Goals: Patient plans on returning to her home with assistance from her friends and home health. Treatment Plan Speech Therapy Treatment Plan: Discontinue ST Treatment Duration: Sep 11, 2019 Frequency: 1 time per week Estimated Hrs Per Day: .25 hour per day Rehab Potential: Fair Barriers to Learning: None identified Pt/Family Agrees to Plan: Yes Safety Risks/Education Teaching Recipient: Patient Teaching Methods: Discussion Response to Teaching: Verbalize Understanding Education Topics Provided: Safety within her room and communication of wants/needs Time Speech Therapy Time In: 11:15 Speech Therapy Time Out: 11:30 Total Billed Time: 15 Billed Treatment Time 1, SPSNDCOMP LYNETTE Castrejon Sep 11, 2019 11:51
--- NOTE | 2019-09-11 13:18 | NUR ---
CM/SS ADMISSION Patient was admitted to ARU from [facility] 09/10/19 for ARF, Pneumonia, and is post op total left knee arthroplasty. She was inpatient at [facility] 08/21-08/28/19, ARU 08/27-08/31/19, transferred to medical inpatient 08/30-09/10/19, returned ARU. 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 She resides with two other adult women who are retired and who will be willing/able to provide any assistance needed for her recuperation. Patient plans to return to her employment as soon as released to do so. PCP: Dr. Temo Carcamo, DO PHARMACY: [facility] INSURED: [employer] [facility] DME: Patient has a FWW, she will explore other assistive devices that are being used during her therapy at this time (leg software systems engineer, shoe horn, dressing stick) OUTPATIENT THERAPY: Patient desires OP PT with [facility]. This was set up when a tentative plan was for her to discharge from acute and prior to her unexpected return to medical acute status. Welder Helper has confirmed that patient's referral there is on hold and that once notified of patient discharge from ARU, OP PT will set up a new appointment. BARRIERS TO DISCHARGE: No psychosocial barriers noted. CONTACTS: Melba Guidry, sister Scout, [place] [phone] Ramandeep Tejeda, Friend Resides with patient [phone] Patient understands the purpose and process of the weekly patient care conference and that her next review will be on 09/12/19.
--- NOTE | 2019-09-11 13:28 | Progress Note ---
Standard Progress Note Progress Notes/Assess & Plan Date Seen by a Provider: Sep 11, 2019 Time Seen by a Provider: 13:28 Progress/Assessment & Plan no complaints LLE--incision well healed. No effusion. Able to perform SLR s/p LTKA with quad repair and DVT continue PT REFUGIO MANZANARES MD Sep 11, 2019 13:28
--- NOTE | 2019-09-11 13:36 | Physical Therapy Daily Note ---
PT Daily Note-Current Subjective Patient agrees to PT. No c/o. Pain Numeric Pain Scale: 5-Moderate Pain Location: Left Location Body Site: Knee Pain Description: Ache Mental Status Patient Orientation: Normal For Age Transfers SCALE: Activities may be completed with or without assistive devices. 6-Iywyrytmcx-cxgeomf completes the activity by him/herself with no assistance from a helper. 5-Set-up or Clean-up Assistance-helper sets up or cleans up; patient completes activity. [place] assists only prior to or following the activity. 4-Supervision or Touching Assistance-helper provides verbal cues and/or touching/steadying and/or contact guard assistance as patient completes activity. Assistance may be provided throughout the activity or intermittently. 3-Partial/Moderate Assistance-helper does LESS THAN HALF the effort. [place] lifts, holds or supports trunk or limbs, but provides less than half the effort. 2-Substantial/Maximal Assistance-helper does MORE THAN HALF the effort. [place] lifts or holds trunk or limbs and provides more than half the effort. 5-Wueabcrsi-rifnle does ALL the effort. Patient does none of the effort to complete the activity. Or, the assistance of 2 or more helpers is required for the patient to complete the activity. If activity was not attempted, code reason: 7-Patient Refused. 9-Not Applicable-not attempted and the patient did not perform the activity before the current illness, exacerbation or injury. 10-Not Attempted due to Environmental Limitations-(lack of equipment, weather restraints, etc.). 88-Not Attempted due to Medical Conditions or Safety Concerns. Sit to Stand (QC): 6 Weight Bearing Left Lower Extremity: Left Weight Bearing/Tolerated Gait Training Does the Patient Walk?: Yes Distance: 250' x 2 Walk 10 feet (QC): 6 Walk 50 ft with 2 Turns(QC): 6 Walk 150 ft (QC): 6 Gait Assistive Device: FWW Exercises Supine Ex: Straight leg raise Supine Reps: 10 Assessment Patient tolerated treatment well and has been instructed to be up in room and hallway ad lesia. Nursing notified. PT Short Term Goals Short Term Goals Time Frame: Sep 17, 2019 Roll Left & Right: 6 Sit to lyin Lying to sitting on side of be: 6 Sit to stand: 6 Chair/qto-tp-veowa transfer: 6 Toilet transfer: 6 Walk 10 feet: 6 Walk 50 feet with two turns: 6 Walk 150 feet: 6 Walking 10ft on uneven surface: 5 1 step (curb): 4 4 steps: 4 PT Block Cleaner Goals Block Cleaner Goals PT Block Cleaner Goals Time Frame: Oct 01, 2019 Roll Left & Right (QC): 6 Sit to Lying (QC): 6 Lying-Sitting on Side/Bed(QC): 6 Sit to Stand (QC): 6 Chair/Ken-wp-Zxsek Xfer(QC): 6 Toilet Transfer (QC): 6 Car Transfer (QC): 6 Does the Patient Walk: Yes Walk 10 feet (QC): 6 Walk 50ft with 2 Turns (QC): 6 Walk 150 ft (QC): 6 Walking 10ft on Uneven Surface: 6 1 Step (curb) (QC): 6 4 Steps (QC): 6 12 Steps (QC): 6 Picking up an Object (QC): 88 Does the Pt use WC or Scooter?: No Wheel 50 feet with 2 turns (QC: 9 Wheel 150 feet: 9 PT Plan Treatment/Plan Treatment Plan: Continue Plan of Care Treatment Plan: Education, Functional Activity Alexs[place], Functional Strength, Gait, Safety, Therapeutic Exercise, Transfers Treatment Duration: Oct 01, 2019 Frequency: At least 5 of 7 days/Wk (IRF) Estimated Hrs Per Day: 1.5 hours per day Patient and/or Family Agrees t: Yes Time/GCodes Time In: 1300 Time Out: 1330 Total Billed Treatment Time: 30 Total Billed Treatment 1 visit FA x 2 30 min WILVER GRIMM PT Sep 11, 2019 13:35
--- NOTE | 2019-09-11 14:43 | NUR ---
"RD ASSESSMENT PMHx: hypercholesterolemia; HTN; GERD; s/p L TKA PT INTERACTION: Pt was awake and pleasant during nutrition follow-up. Pt states she has been eating well better since last assessment. Note avg PO intake 79% x4d, per chart review. Pt states no issues with nausea, vomiting, constipation, or diarrhea since last assessment. Note last BM was 09/08, and pt currently on bowel regimen of colace BID; senna BID; and colace BID, per chart review. ABNORMAL NUTRITION-RELATED LAB VALUES LOW: HIGH: glu 106 Est. kcal needs: 4011-2877 kcal | 15-20 kcal/kg Est. Pro needs: 87-105 g Pro | 1.0-1.2 g Pro/kg PES STATEMENT: Given current appetite and PO intake, no nutrition diagnosis at this time (NO-1.1) INTERVENTION: Continue with current diet order of Regular diet. Will continue to follow and reassess as pt needs, intake, and status change. MONITOR/EVALUATE: PO Intake; Plan of Care; Hydration Status; Weight Status; Lab Values Asif Cosme, , RD, LD"
--- NOTE | 2019-09-11 15:23 | Progress Note - Cardiology ---
Cardiology SOAP Progress Note Subjective: No cp or palp or syncope or shortness of breath at rest Gen weakness No focal weakness Objective: I&O/Vital Signs 09/11/19 09/11/19 09/11/19 09/11/19 06:17 06:44 07:22 09:00 Temp 36.8 Pulse 98 84 Resp 16 B/P (MAP) 129/80 (96) Pulse Ox 92 98 98 O2 Delivery Room Air Room Air Room Air 09/11/19 00:00 Intake Total 1540 ml Balance 1540 ml Weight (Pounds): 183 Weight (Ounces): 5.0 Weight (Calculated Kilograms): 83.342224 Constitutional: AAO x 3, well-developed, well-nourished Respiratory: No accessory muscle use, No respiratory distress; chest expansion is symmetric, chest is bilaterally symmetric, lungs clear to auscultation Cardiovascular: regular rate-rhythm; No JVD; S1 and S2 Gastrointestional: No tender; soft, audible bowel sounds Neurologic/Psychiatric: grossly intact (moves extremities) Skin: No rash on exposed areas, No ulcerations on exposed areas Results/Procedures: Labs Laboratory Tests 09/11/19 05:35: White Blood Count 8.0, Red Blood Count 3.57L, Hemoglobin 10.0L, Hematocrit 34L, Mean Corpuscular Volume 94, Mean Corpuscular Hemoglobin 28, Mean Corpuscular Hemoglobin Concent 30L, Red Cell Distribution Width 16.8H, Platelet Count 629H, Mean Platelet Volume 8.3, Neutrophils (%) (Auto) 54, Lymphocytes (%) (Auto) 32, Monocytes (%) (Auto) 11, Eosinophils (%) (Auto) 2, Basophils (%) (Auto) 0, Neutrophils # (Auto) 4.4, Lymphocytes # (Auto) 2.6, Monocytes # (Auto) 0.9, Eosinophils # (Auto) 0.2, Basophils # (Auto) 0.0, Sodium Level 137, Potassium Level 4.5, Chloride Level 100, Carbon Dioxide Level 25, Anion Gap 12, Blood Urea Nitrogen 15, Creatinine 0.74, Estimat Glomerular Filtration Rate > 60, BUN/Creatinine Ratio 20, Glucose Level 106H, Calcium Level 9.8, Corrected Calcium 10.0, Total Bilirubin 0.8, Aspartate Amino Transf (AST/SGOT) 20, Alanine Aminotransferase (ALT/SGPT) 24, Alkaline Phosphatase 118, Total Protein 7.5, Albumin 3.8 A/P: Assessment: Provoked DVT, L-sided: incompletely occlusive lower popliteal vein clot. The common and superficial femoral veins are patent. No other suspected thrombus (u/s of September 10, 2019) Ac resp failure (with transient hypoxia) - extubated on 09-04-2019 - resolved Septic shock post surgery (hypotension now resolved) s/p L total knee arthroplasty on 08/22/19 and quadriceps tendon repair on 08/24/19 Severe, post-op anemia - improved - management per medical services Intermittent sinus tach during this hospitalization Left bundle branch block, chronic History of cardiac catheterization in 2012: mild coronary artery disease; last MPI in March 2019 showing no significant ischemia or infarction, ejection fraction 78 percent. Echo 09/02/19 (Dr Willingham): LVEF 45-50%, no RWMA, mod TR, PASP 40-45 mmHg History of isolated PVCs and few brief runs of nonsustained ventricular tachycardia, she was seen by Dr. Marie and Dr. Lewis as an outpatient. Hyperlipidemia, treated with Lipitor History of mild carotid stenosis H/o tobacco use Plan: Therapeutic apixaban Continue current medication regimen Monitor labs I spoke with her and answered CV-related questions JUANJO MARCIAL MD FACP FAC CCDS Sep 11, 2019 15:23
[2019-09-11 16:21] VITALS: BP 123/77
--- NOTE | 2019-09-11 19:11 | NUR ---
bedside report received from STEVE ARGUETA, assume care of pt
--- NOTE | 2019-09-11 20:38 | NUR ---
refused Colace, Senokot & miralax, c/o lt knee pain, level 5/10 on numeric scale, oxyir 5mg given & Benadryl 25mg for itching
[2019-09-11] MEDS: diphenhydrAMINE 25 MG TAB (BENADRYL) PO PRN (20:39)
--- NOTE | 2019-09-11 21:15 | NUR ---
rates pain 3/10 on numeric scale
--- NOTE | 2019-09-11 22:51 | NUR ---
c/o lt knee pain level 5/10 on numeric scale, oxyir 5mg given & tums 500mg
--- NOTE | 2019-09-11 23:45 | NUR ---
resting quietly in bed, pain level 0/10 on CNPI scale
[2019-09-12 06:00] VITALS: BP 113/73
[2019-09-12] MEDS: RT-ALBUTEROL INHALER HFA (VENTOLIN HFA) 8 GM IH SCH ×2 (07:45→21:31)
[2019-09-12 08:00] VITALS: BP 111/73
[2019-09-12] MEDS: SENNA W/DOCUSATE (SENOKOT S) TABLET PO SCH ×2 (08:30→20:28)
[2019-09-12] MEDS: FAMOTIDINE 20 MG (PEPCID) TABLET PO SCH ×2 (08:30→20:21)
[2019-09-12] MEDS: SENNOSIDES 8.6 MG (SENOKOT) TAB PO SCH ×2 (08:30→20:28)
[2019-09-12] MEDS: DOCUSATE SODIUM 100 MG (COLACE) CAP PO SCH ×2 (08:30→20:21)
[2019-09-12] MEDS: APIXABAN 5 MG (ELIQUIS) TABLET PO SCH ×2 (08:31→20:21)
[2019-09-12] MEDS: meTOprolol SUCCINATE 100 MG (TOPROL XL) TAB PO SCH (08:31)
[2019-09-12] MEDS: NYSTATIN CREAM (MYCOSTATIN) 30 GM TUBE TP SCH ×3 (08:32→21:00)
[2019-09-12] MEDS: polyethylene glycoL POWDER 17 GM (MIRALAX) PACK PO SCH ×2 (08:33→20:28)
--- NOTE | 2019-09-12 09:40 | Physical Therapy Daily Note ---
PT Daily Note-Current Subjective Pt. agrees to Rx, spoke a bit about her recent "adventure" . Pt. c/o pain in left knee at 3/10. Pain Numeric Pain Scale: 3 Location: Left Location Body Site: Knee Pain Description: Ache Mental Status Patient Orientation: Normal For Age Attachments: Other-See Comments (L knee immoblizer) Transfers SCALE: Activities may be completed with or without assistive devices. 0-Rcqkicocpb-sbaluuj completes the activity by him/herself with no assistance from a helper. 5-Set-up or Clean-up Assistance-helper sets up or cleans up; patient completes activity. [place] assists only prior to or following the activity. 4-Supervision or Touching Assistance-helper provides verbal cues and/or touching/steadying and/or contact guard assistance as patient completes activity. Assistance may be provided throughout the activity or intermittently. 3-Partial/Moderate Assistance-helper does LESS THAN HALF the effort. [place] lifts, holds or supports trunk or limbs, but provides less than half the effort. 2-Substantial/Maximal Assistance-helper does MORE THAN HALF the effort. [place] lifts or holds trunk or limbs and provides more than half the effort. 3-Jqjlpkjdh-gqlexb does ALL the effort. Patient does none of the effort to complete the activity. Or, the assistance of 2 or more helpers is required for the patient to complete the activity. If activity was not attempted, code reason: 7-Patient Refused. 9-Not Applicable-not attempted and the patient did not perform the activity before the current illness, exacerbation or injury. 10-Not Attempted due to Environmental Limitations-(lack of equipment, weather restraints, etc.). 88-Not Attempted due to Medical Conditions or Safety Concerns. Roll Left & Right (QC): 6 Sit to Lying (QC): 6 Lying to Sitting/Side of Bed(Q: 6 Sit to Stand (QC): 6 Chair/Wvw-hs-Ylimt Xfer(QC): 6 Toilet Transfer (QC): 6 all observed TRFs mod I Weight Bearing Left Lower Extremity: Left Weight Bearing/Tolerated Gait Training Does the Patient Walk?: Yes Walk 10 feet (QC): 6 Walk 50 ft with 2 Turns(QC): 6 Walk 150 ft (QC): 6 Gait Assistive Device: FWW pt. ambulates with forward posture but this pt. being previously known to this therapist, this was her long time posture. Pt. ambulated approx 100 ft then 150 ft to gym, it was noted that pt. was diaphoretic after and fatigued and required rest. Exercises Supine Ex: Bridging (utilizing RLE only), Ankle pumps, Quad Set, Rolling, Glut sets, Heel Slides (RLE only), Short Arc Quads (RLE only), Scooting (left to right on mat), Straight leg raise (assisted left, indep R), Hip abd/add (assisted left , indep Left) Supine Reps: 10 (x2) Seated Therapy Exercises: Sit to stand (10) Seated Reps: 10 Treatments toileted and stood at sink for teeth and hair etc all observed Mod I Assessment Current Status: Good Progress fatigues and requires rest breaks, this therapist made clear pt may be up ad lesia but should always call for assist if se feels any slight difference or question of her safety etc PT Short Term Goals Short Term Goals Time Frame: Sep 17, 2019 Roll Left & Right: 6 Sit to lyin Lying to sitting on side of be: 6 Sit to stand: 6 Chair/mlh-gi-uvfnu transfer: 6 Toilet transfer: 6 Walk 10 feet: 6 Walk 50 feet with two turns: 6 Walk 150 feet: 6 Walking 10ft on uneven surface: 5 1 step (curb): 4 4 steps: 4 PT Penitentiary Goals Penitentiary Goals PT Penitentiary Goals Time Frame: Oct 01, 2019 Roll Left & Right (QC): 6 Sit to Lying (QC): 6 Lying-Sitting on Side/Bed(QC): 6 Sit to Stand (QC): 6 Chair/Kcz-as-Tchpy Xfer(QC): 6 Toilet Transfer (QC): 6 Car Transfer (QC): 6 Does the Patient Walk: Yes Walk 10 feet (QC): 6 Walk 50ft with 2 Turns (QC): 6 Walk 150 ft (QC): 6 Walking 10ft on Uneven Surface: 6 1 Step (curb) (QC): 6 4 Steps (QC): 6 12 Steps (QC): 6 Picking up an Object (QC): 88 Does the Pt use WC or Scooter?: No Wheel 50 feet with 2 turns (QC: 9 Wheel 150 feet: 9 PT Plan Treatment/Plan Treatment Plan: Continue Plan of Care Treatment Plan: Education, Functional Activity Alexsandra, Functional Strength, Gait, Safety, Therapeutic Exercise, Transfers Treatment Duration: Oct 01, 2019 Frequency: At least 5 of 7 days/Wk (IRF) Estimated Hrs Per Day: 1.5 hours per day Patient and/or Family Agrees t: Yes Safety Risks/Education Patient Education: Gait Training, Transfer Techniques, Correct Positioning, Disease Process, Safety Issues Teaching Recipient: Patient Teaching Methods: Demonstration, Discussion Response to Teaching: Verbalize Understanding, Return Demonstration, Reinforcement Needed Time/GCodes Time In: 830 Time Out: 930 Total Billed Treatment Time: 60 Total Billed Treatment 1,GT20m,EX 25m,FA15m AARTI SCHULTZ SECTION MAINTAINER Sep 12, 2019 09:40
--- NOTE | 2019-09-12 11:11 | Progress Note ---
Standard Progress Note Progress Notes/Assess & Plan Date Seen by a Provider: Sep 12, 2019 Time Seen by a Provider: 11:10 Progress/Assessment & Plan no complaints LLE--incision well healed. No effusion. Able to perform SLR s/p LTKA with quad repair and DVT continue PT Final Diagnosis she feels like she is improving Vital Signs Date Time Temp Pulse Resp B/P (MAP) Pulse Ox O2 Delivery O2 Flow Rate FiO2 09/12/19 09:35 98 Room Air 09/12/19 07:46 96 Room Air 09/12/19 06:00 36.4 98 22 113/73 (86) 92 Room Air 09/11/19 20:40 Room Air 09/11/19 18:45 98 Room Air 09/11/19 16:21 36.8 86 16 123/77 (92) 98 Room Air I & O 09/12/19 07:00 Intake Total 1590 ml Balance 1590 ml L knee without erythema or warmth s/p LTKA and quad repair continue PT/OT REFUGIO MANZANARES MD Sep 12, 2019 11:11
--- NOTE | 2019-09-12 11:39 | Occupational Ther Daily Note ---
OT Current Status-Daily Note Subjective No pain noted. Appearance Pt. is in therapy gym with PT. Agreeable to work with OT. Mental Status/Objective Patient Orientation: Person, Place, Time, Situation ADL-Treatment Therapy Code Descriptions/Definitions Functional [place] Measure: 0=Not Assessed/NA 4=Minimal Assistance 1=Total Assistance 5=Supervision or Setup 2=Maximal Assistance 6=Modified [place] 3=Moderate Assistance 7=Complete IndependenceSCALE: Activities may be completed with or without assistive devices. 9-Frsxfyjhrm-ahacfku completes the activity by him/herself with no assistance from a helper. 5-Set-up or Clean-up Assistance-helper sets up or cleans up; patient completes activity. [place] assists only prior to or following the activity. 4-Supervision or Touching Assistance-helper provides verbal cues and/or touching/steadying and/or contact guard assistance as patient completes activity. Assistance may be provided throughout the activity or intermittently. 3-Partial/Moderate Assistance-helper does LESS THAN HALF the effort. [place] l ifts, holds or supports trunk or limbs, but provides less than half the effort. 2-Substantial/Maximal Assistance-helper does MORE THAN HALF the effort. [place] lifts or holds trunk or limbs and provides more than half the effort. 1-Uonoueqeg-zquyho does ALL the effort. Patient does none of the effort to complete the activity. Or, the assistance of 2 or more helpers is required for t he patient to complete the activity. If activity was not attempted, code reason: 7-Patient Refused. 9-Not Applicable-not attempted and the patient did not perform the activity before the current illness, exacerbation or injury. 10-Not Attempted due to Environmental Limitations-(lack of equipment, weather restraints, etc.). 88-Not Attempted due to Medical Conditions or Safety Concerns. Other Treatment Pt. is already dressed for the day. States that she had an incontinence issue e jeremi, and so nursing assisted her with cleansing and changing clothing. Pt. agrees to work on UE strengthening. Pt. completed 20 minutes on arm bike x mod resistance for overall endurance. Pt. then practiced unfastening knee brace and putting lotion on leg. Pt. able to fasten back but does not feel comfortable just yet to take off/put on. Pt. donned 1 lb. wrist weights and completed UE strengthening task with therapy peg activity and therapy clothespins. Pt. reports that she has all needed equipment but may benefit from walker basket, as she was educated on this. Pt. ambulated back with walker to room and transferred to chair with SBA. All needs met. Education OT Patient Education: Correct positioning, Modified ADL techniques, Progress toward Goal/Update tx plan, Purpose of tx/functional activities, Reviewed precautions, Rehab process, Transfer techniques Teaching Recipient: Patient Teaching Methods: Demonstration, Discussion Response to Teaching: Verbalize Understanding, Return Demonstration OT Penitentiary Goals Glass Cutting Machine Operator Goals Time Frame: Sep 24, 2019 Eating (QC): 6 Oral Hygiene (QC): 6 Toileting Hygiene (QC): 6 Shower/Bathe Self (QC): 5 Upper Body Dressing (QC): 6 Lower Body Dressing (QC): 6 On/Off Footwear (QC): 6 Additional Goals: 1-Demonstrate ADL Tasks, 2-Verbalize Understanding, 3- ImproveStrength/Alexsandra 1=Demonstrate adherence to instructed precautions during ADL tasks. 2=Patient will verbalize/demonstrate understanding of assistive devices/modifications for ADL. 3=Patient will improve strength/tolerance for activity to enable patient to perform ADL's. OT Education/Plan Problem List/Assessment Assessment: Decreased Activ Tolerance, Impaired Funct Balance, Impaired I ADL's, Impaired Self-Care Skills Discharge Recommendations Plan/Recommendations: Continue POC Therapy Discharge Recommendati: Home & Family, Post Acute OT Equpiment Recommendations-D/C: Hip Kit Treatment Plan/Plan of Care Treatment,Training & Education: Yes Patient would benefit from OT for education, treatment and training to promote independence in ADL's, mobility, safety and/or upper extremity function for ADL's. Plan of Care: ADL Retraining, Functional Mobility, UE Funct Exercise/Act Treatment Duration: Sep 24, 2019 Frequency: At least 5 of 7 days/Wk (IRF) Estimated Hrs Per Day: 1.5 hours per day Agreement: Yes Rehab Potential: Fair Time/GCodes Start Time: 09:30 Stop Time: 11:00 Total Time Billed (hr/min): 90 Billed Treatment Time 1, Ex x 15minutes, ADL x 30minutes, FA x 45minutes KIRAN PENNINGTON OT Sep 12, 2019 11:39
--- NOTE | 2019-09-12 12:21 | PM&R Progress Note ---
Subjective HPI/CC On Admission Date Seen by Provider: Sep 12, 2019 Time Seen by Provider: 10:00 Subjective/Events-last exam She wants to go home on Tuesday No evidence of any renal or respiratory failure now Cough is minimal Bowels are moving Wants DC Tuesday Conferred with RN Reviewed therapy notes Checked meds and labs Review of Systems General: Fatigue Musculoskeletal: leg pain Objective Exam Vital Signs Vital Signs Date Time Temp Pulse Resp B/P (MAP) Pulse Ox O2 Delivery O2 Flow Rate FiO2 09/13/19 05:31 36.2 77 16 120/66 (84) 97 Room Air Capillary Refill : Less Than 3 Seconds General Appearance: No Apparent Distress, WD/WN, Chronically ill HEENT: PERRL/EOMI, Normal ENT Inspection, Pharynx Normal Neck: Full Range of Motion, Normal Inspection, Non Tender, Supple, Carotid Bruit Respiratory: Chest Non Tender, Lungs Clear, No Accessory Muscle Use, No Respiratory Distress, Decreased Breath Sounds Cardiovascular: Regular Rate, Rhythm, No Edema, No Gallop, No JVD, No Murmur, Normal Peripheral Pulses Gastrointestinal: Normal Bowel Sounds, No Organomegaly, No Pulsatile Mass, Non Tender, Soft Back: Normal Inspection, No CVA Tenderness, No Vertebral Tenderness Extremity: Normal Capillary Refill, Normal Inspection, Normal Range of Motion (except left knee in immoblizer), Non Tender, No Calf Tenderness, No Pedal Edema Neurologic/Psychiatric: Alert, Oriented x3, No Motor/Sensory Deficits, Normal Mood/Affect Skin: Normal Color, Warm/Dry Lymphatic: No Adenopathy Results/Procedures Lab Patient resulted labs reviewed. FIM Transfers Therapy Code Descriptions/Definitions Functional [place] Measure: 0=Not Assessed/NA 4=Minimal Assistance 1=Total Assistance 5=Supervision or Setup 2=Maximal Assistance 6=Modified [place] 3=Moderate Assistance 7=Complete IndependenceSCALE: Activities may be completed with or without assistive devices. 1-Rwwzwktybj-gpflbwz completes the activity by him/herself with no assistance from a helper. 5-Set-up or Clean-up Assistance-helper sets up or cleans up; patient completes activity. [place] assists only prior to or following the activity. 4-Supervision or Touching Assistance-helper provides verbal cues and/or touching/steadying and/or contact guard assistance as patient completes activity. Assistance may be provided throughout the activity or intermittently. 3-Partial/Moderate Assistance-helper does LESS THAN HALF the effort. [place] lifts, holds or supports trunk or limbs, but provides less than half the effort. 2-Substantial/Maximal Assistance-helper does MORE THAN HALF the effort. [place] lifts or holds trunk or limbs and provides more than half the effort. 1-Imjdvnmgp-rfargt does ALL the effort. Patient does none of the effort to co mplete the activity. Or, the assistance of 2 or more helpers is required for the patient to complete the activity. If activity was not attempted, code reason: 7-Patient Refused. 9-Not Applicable-not attempted and the patient did not perform the activity before the current illness, exacerbation or injury. 10-Not Attempted due to Environmental Limitations-(lack of equipment, weather restraints, etc.). 88-Not Attempted due to Medical Conditions or Safety Concerns. Roll Left to Right (QC): 6 Sit to Lying (QC): 6 Sit to Stand (QC): 6 Chair/Wxz-bz-Vydcc Xfer(QC): 6 Car Transfer (QC): 88 Gait Training Does the Patient Walk?: Yes Distance: 250' x 2 Walk 10 feet (QC): 6 Walk 50 ft with 2 Turns(QC): 6 Walk 150 ft (QC): 6 Walking 10ft/uneven surface-QC: 4 Gait Persons Needed: 1 Gait Assistive Device: FWW Wheelchair Training Does the Pt Use a Wheelchair?: No Wheel 50 ft with 2 turns (QC): 9 Wheel 150 ft (QC): 9 Stair Training #of Steps: 1 1 Step (curb) (QC): 4 4 Steps (QC): 88 12 Steps (QC): 88 Balance Picking up an Object (QC): 88 ADL-Treatment Eating (QC): 6 Oral Hygiene (QC): 5 Bathing Location: L Arm, R Arm, L Upper Leg, R Upper Leg, Chest, Abdomen Shower/Bathe Self (QC): 4 (SBA for shower and CGA for transfers in shower.) Upper Body Dressing (QC): 5 Lower Body Dressing (QC): 3 (Pt. able to doff shorts and underwear, but requires mod assist to don them due to time constraint.) On/Off Footwear (QC): 3 (Mod assist with AE.) Toileting Hygiene (QC): 6 Toilet Transfer (QC): 4 Assessment/Plan Assessment and Plan Assess & Plan/Chief Complaint Assessment: s/p left total knee replacement Dr Gann 08/22/19 s/p revision due to tendon dysfunction and sent to IRF 08/28/19 then required transfer to ICU for critical illness and VDRF and PNA HLP Cardiac arrhythmia hx Smoker Post op anemia Left lower leg DVT USG 09/10/19 placed on Eliquis x 3 months Plan: Eliquis Monitor BP IRF protocol Pain meds BM regimen (1) S/P total knee arthroplasty Status: Acute (2) Cardiac arrhythmia (3) Smoker (4) Quadriceps tendon rupture Status: Acute (5) Osteoarthritis of left knee Status: Acute (6) HLD (hyperlipidemia) Status: Chronic (7) HTN (hypertension) Status: Chronic (8) GERD (gastroesophageal reflux disease) Status: Chronic (1) S/P total knee arthroplasty Status: Acute (2) Acute respiratory failure with hypoxia Status: Resolved Resolution Date/Time: 09/06/19 @ 11:03 (3) Candidiasis of skin Status: Acute (4) Endotracheally intubated Status: Resolved Resolution Date/Time: 09/05/19 @ 13:37 (5) Severe sepsis Status: Resolved Resolution Date/Time: 09/05/19 @ 13:37 (6) Lactic acidosis Status: Resolved Resolution Date/Time: 09/05/19 @ 13:37 (7) Multifocal pneumonia Status: Acute (8) Osteoarthritis of left knee Status: Chronic (9) Quadriceps tendon rupture Status: Acute (10) Tachycardia (11) Fever (12) HLD (hyperlipidemia) Status: Chronic (13) HTN (hypertension) Status: Chronic (14) GERD (gastroesophageal reflux disease) Status: Chronic (15) Cardiac arrhythmia (16) Smoker JUAN JOSE SNYDER DO Sep 12, 2019 12:21
--- NOTE | 2019-09-12 13:44 | Physical Therapy Daily Note ---
PT Daily Note-Current Subjective Pt explains her stairs and situation at home. Agrees to try steps this PM. Pain Location: No Pain Reported Mental Status Patient Orientation: Normal For Age Attachments: Other-See Comments (left knee immoblizer) Transfers SCALE: Activities may be completed with or without assistive devices. 1-Fxtoaxygyh-qczyzey completes the activity by him/herself with no assistance from a helper. 5-Set-up or Clean-up Assistance-helper sets up or cleans up; patient completes activity. [place] assists only prior to or following the activity. 4-Supervision or Touching Assistance-helper provides verbal cues and/or touching/steadying and/or contact guard assistance as patient completes activity. Assistance may be provided throughout the activity or intermittently. 3-Partial/Moderate Assistance-helper does LESS THAN HALF the effort. Addison lifts, holds or supports trunk or limbs, but provides less than half the effort. 2-Substantial/Maximal Assistance-helper does MORE THAN HALF the effort. Addison lifts or holds trunk or limbs and provides more than half the effort. 8-Iqwxyouok-ozdlys does ALL the effort. Patient does none of the effort to complete the activity. Or, the assistance of 2 or more helpers is required for the patient to complete the activity. If activity was not attempted, code reason: 7-Patient Refused. 9-Not Applicable-not attempted and the patient did not perform the activity before the current illness, exacerbation or injury. 10-Not Attempted due to Environmental Limitations-(lack of equipment, weather restraints, etc.). 88-Not Attempted due to Medical Conditions or Safety Concerns. sit to stand from chair and toilet all mod I Weight Bearing Left Lower Extremity: Left Weight Bearing/Tolerated Gait Training Does the Patient Walk?: Yes Walk 150 ft (QC): 6 Gait Persons Needed: 0 Gait Assistive Device: FWW ambulated about room and to from gym slow, flexed at trunk but mod I, observed safe with no LOB Stair Training Stair Training: Handrails/: 2 handrails #of Steps: 4 4 Steps (QC): 4 Stairs: Pattern: Step to a little strenuous for pt. at point of wt bearing on LLE to ascend with RLE , pt. took it slow, rested on each step, used good sequence Assessment Current Status: Good Progress good progress noted, pt. continues to fatigue and notes that she is sweaty and tired after 150 ft ambulation PT Short Term Goals Short Term Goals Time Frame: Sep 17, 2019 Roll Left & Right: 6 Sit to lyin Lying to sitting on side of be: 6 Sit to stand: 6 Chair/clg-dz-kdbzd transfer: 6 Toilet transfer: 6 Walk 10 feet: 6 Walk 50 feet with two turns: 6 Walk 150 feet: 6 Walking 10ft on uneven surface: 5 1 step (curb): 4 4 steps: 4 PT Manager Lan Goals Manager Lan Goals PT Manager Lan Goals Time Frame: Oct 01, 2019 Roll Left & Right (QC): 6 Sit to Lying (QC): 6 Lying-Sitting on Side/Bed(QC): 6 Sit to Stand (QC): 6 Chair/Qwp-qc-Klnzz Xfer(QC): 6 Toilet Transfer (QC): 6 Car Transfer (QC): 6 Does the Patient Walk: Yes Walk 10 feet (QC): 6 Walk 50ft with 2 Turns (QC): 6 Walk 150 ft (QC): 6 Walking 10ft on Uneven Surface: 6 1 Step (curb) (QC): 6 4 Steps (QC): 6 12 Steps (QC): 6 Picking up an Object (QC): 88 Does the Pt use WC or Scooter?: No Wheel 50 feet with 2 turns (QC: 9 Wheel 150 feet: 9 PT Plan Treatment/Plan Treatment Plan: Continue Plan of Care Treatment Plan: Education, Functional Activity Alexsandra, Functional Strength, Gait, Safety, Therapeutic Exercise, Transfers Treatment Duration: Oct 01, 2019 Frequency: At least 5 of 7 days/Wk (IRF) Estimated Hrs Per Day: 1.5 hours per day Patient and/or Family Agrees t: Yes Safety Risks/Education Patient Education: Gait Training, Transfer Techniques, Steps, Correct Positioning, Disease Process, Safety Issues Teaching Recipient: Patient Teaching Methods: Demonstration, Discussion Response to Teaching: Verbalize Understanding, Return Demonstration, Reinforcement Needed Time/GCodes Time In: 1300 Time Out: 1330 Total Billed Treatment Time: 30 Total Billed Treatment 1,GT20m,FA10m AARTI SCHULTZ [employer]ATIVE DIRECTOR Sep 12, 2019 13:44
--- NOTE | 2019-09-12 15:30 | Progress Note - Cardiology ---
Cardiology SOAP Progress Note Subjective: No cp or palp or syncope No shortness of breath at rest Gen weakness and malaise slowly improving Objective: I&O/Vital Signs 09/12/19 09/12/19 09/12/19 06:00 07:46 09:35 Temp 36.4 Pulse 98 Resp 22 B/P (MAP) 113/73 (86) Pulse Ox 92 96 98 O2 Delivery Room Air Room Air Room Air 09/12/19 00:00 Intake Total 940 ml Balance 940 ml Weight (Pounds): 183 Weight (Ounces): 5.0 Weight (Calculated Kilograms): 83.003258 Constitutional: AAO x 3, well-developed, well-nourished Respiratory: No accessory muscle use, No respiratory distress; chest expansion is symmetric, chest is bilaterally symmetric, lungs clear to auscultation Cardiovascular: regular rate-rhythm; No JVD; S1 and S2 Gastrointestional: No tender; soft, audible bowel sounds Neurologic/Psychiatric: grossly intact (moves extremities) Skin: No rash on exposed areas, No ulcerations on exposed areas Results/Procedures: Labs Laboratory Tests 09/11/19 05:35 A/P: Assessment: Provoked DVT, L-sided: incompletely occlusive lower popliteal vein clot. The common and superficial femoral veins are patent. No other suspected thrombus (u/s of September 10, 2019) Ac resp failure (with transient hypoxia) - extubated on 09-04-2019 - resolved Septic shock post surgery (hypotension now resolved) s/p L total knee arthroplasty on 08/22/19 and quadriceps tendon repair on 08/24/19 Severe, post-op anemia - improved - management per medical services Intermittent sinus tach during this hospitalization Left bundle branch block, chronic History of cardiac catheterization in 2012: mild coronary artery disease; last MPI in March 2019 showing no significant ischemia or infarction, ejection fraction 78 percent. Echo 09/02/19 (Dr Willingham): LVEF 45-50%, no RWMA, mod TR, PASP 40-45 mmHg History of isolated PVCs and few brief runs of nonsustained ventricular tachycardia, she was seen by Dr. Marie and Dr. Lewis as an outpatient. Hyperlipidemia, treated with Lipitor History of mild carotid stenosis H/o tobacco use Plan: Therapeutic apixaban Continue current medication regimen Monitor labs JUANJO MARCIAL MD FACP FACC CCDS Sep 12, 2019 15:30
[2019-09-12 18:00] VITALS: BP 112/72
--- NOTE | 2019-09-12 19:04 | NUR ---
bedside report received from STEVE ARGUETA, assume care of pt
[2019-09-12] MEDS: diphenhydrAMINE 25 MG TAB (BENADRYL) PO PRN (20:20)
--- NOTE | 2019-09-12 20:32 | NUR ---
pt took Colace, refused Senokot & miralax, c/o pain to lt knee, pain level 5/10 on numeric scale, oxyir 10mg given, also c/o itching Benadryl 25mg given
--- NOTE | 2019-09-12 21:10 | NUR ---
rates pain 3/10 on numeric scale
[2019-09-13 05:31] VITALS: BP 120/66
--- NOTE | 2019-09-13 06:20 | NUR ---
c/o lt knee pain level 6/10 on numeric scale, oxyir 10mg given
--- NOTE | 2019-09-13 07:00 | NUR ---
rates pain level 3/10 on numeric scale
--- NOTE | 2019-09-13 07:22 | PM&R Progress Note ---
Subjective HPI/CC On Admission Date Seen by Provider: Sep 13, 2019 Time Seen by Provider: 10:30 Subjective/Events-last exam Planning for discharge tomorrow Dr. Reaves changed her Metoprolol dosing, will continue that at discharge Rash is improved with Nystatin cream and powder Heel blister is noted from critically ill status but that is not causing any problems Eliquis will be maintained for the full three months for the provoked DVT of the left leg After rounds she began having vaginal spotting so I consulted Dr Crystal who she has seen in the past, although 15 years ago, and obtained USG and revealed ovarian mass and thickened endometrial stripe so he will see her tomorrow Conferred with RN Reviewed therapy notes Checked meds and labs Review of Systems General: Fatigue Musculoskeletal: leg pain Objective Exam Vital Signs Vital Signs Date Time Temp Pulse Resp B/P (MAP) Pulse Ox O2 Delivery O2 Flow Rate FiO2 09/13/19 21:49 90 127/80 (96) 09/13/19 20:35 Room Air 09/13/19 20:34 96 09/13/19 17:02 36.4 18 Capillary Refill : Less Than 3 Seconds General Appearance: No Apparent Distress, WD/WN, Chronically ill HEENT: PERRL/EOMI, Normal ENT Inspection, Pharynx Normal Neck: Full Range of Motion, Normal Inspection, Non Tender, Supple, Carotid Bruit Respiratory: Chest Non Tender, Lungs Clear, No Accessory Muscle Use, No Respiratory Distress, Decreased Breath Sounds Cardiovascular: Regular Rate, Rhythm, No Edema, No Gallop, No JVD, No Murmur, Normal Peripheral Pulses Gastrointestinal: Normal Bowel Sounds, No Organomegaly, No Pulsatile Mass, Non Tender, Soft Back: Normal Inspection, No CVA Tenderness, No Vertebral Tenderness Extremity: Normal Capillary Refill, Normal Inspection, Normal Range of Motion (except left knee in immoblizer), Non Tender, No Calf Tenderness, No Pedal Edema Neurologic/Psychiatric: Alert, Oriented x3, No Motor/Sensory Deficits, Normal Mood/Affect Skin: Normal Color, Warm/Dry Lymphatic: No Adenopathy Results/Procedures Lab Patient resulted labs reviewed. FIM Transfers Therapy Code Descriptions/Definitions Functional [place] Measure: 0=Not Assessed/NA 4=Minimal Assistance 1=Total Assistance 5=Supervision or Setup 2=Maximal Assistance 6=Modified [place] 3=Moderate Assistance 7=Complete IndependenceSCALE: Activities may be completed with or without assistive devices. 5-Iqrgbnapoi-pyopwkq completes the activity by him/herself with no assistance from a helper. 5-Set-up or Clean-up Assistance-helper sets up or cleans up; patient completes activity. [place] assists only prior to or following the activity. 4-Supervision or Touching Assistance-helper provides verbal cues and/or touching/steadying and/or contact guard assistance as patient completes activity. Assistance may be provided throughout the activity or intermittently. 3-Partial/Moderate Assistance-helper does LESS THAN HALF the effort. [place] lifts, holds or supports trunk or limbs, but provides less than half the effort. 2-Substantial/Maximal Assistance-helper does MORE THAN HALF the effort. [place] lifts or holds trunk or limbs and provides more than half the effort. 7-Trnpzgdgd-iggrsj does ALL the effort. Patient does none of the effort to complete the activity. Or, the assistance of 2 or more helpers is required for the patient to complete the activity. If activity was not attempted, code reason: 7-Patient Refused. 9-Not Applicable-not attempted and the patient did not perform the activity before the current illness, exacerbation or injury. 10-Not Attempted due to Environmental Limitations-(lack of equipment, weather restraints, etc.). 88-Not Attempted due to Medical Conditions or Safety Concerns. Roll Left to Right (QC): 6 Sit to Lying (QC): 6 Sit to Stand (QC): 6 Chair/Ovb-vu-Ppjcg Xfer(QC): 6 Car Transfer (QC): 88 Gait Training Does the Patient Walk?: Yes Distance: 250' x 2 Walk 10 feet (QC): 6 Walk 50 ft with 2 Turns(QC): 6 Walk 150 ft (QC): 6 Walking 10ft/uneven surface-QC: 4 Gait Persons Needed: 0 Gait Assistive Device: FWW Wheelchair Training Does the Pt Use a Wheelchair?: No Wheel 50 ft with 2 turns (QC): 9 Wheel 150 ft (QC): 9 Stair Training Stair Training: Handrails/: 2 handrails #of Steps: 4 1 Step (curb) (QC): 4 4 Steps (QC): 4 12 Steps (QC): 88 Stairs: Pattern: Step to Balance Picking up an Object (QC): 88 ADL-Treatment Eating (QC): 6 Oral Hygiene (QC): 5 Bathing Location: L Arm, R Arm, L Upper Leg, R Upper Leg, Chest, Abdomen Shower/Bathe Self (QC): 4 (SBA for shower and CGA for transfers in shower.) Upper Body Dressing (QC): 5 Lower Body Dressing (QC): 3 (Pt. able to doff shorts and underwear, but requires mod assist to don them due to time constraint.) On/Off Footwear (QC): 3 (Mod assist with AE.) Toileting Hygiene (QC): 6 Toilet Transfer (QC): 4 Assessment/Plan Assessment and Plan Assess & Plan/Chief Complaint Assessment: s/p left total knee replacement Dr Gann 08/22/19 s/p revision due to tendon dysfunction and sent to IRF 08/28/19 then required transfer to ICU for critical illness and VDRF and PNA HLP Cardiac arrhythmia hx Smoker Post op anemia Left lower leg DVT USG 09/10/19 placed on Eliquis x 3 months DUB at 64yo on OAC prompting [employer] consult and USG Plan: Eliquis Monitor BP IRF protocol Pain meds BM regimen (1) S/P total knee arthroplasty Status: Acute (2) Cardiac arrhythmia (3) Smoker (4) Quadriceps tendon rupture Status: Acute (5) Osteoarthritis of left knee Status: Acute (6) HLD (hyperlipidemia) Status: Chronic (7) HTN (hypertension) Status: Chronic (8) GERD (gastroesophageal reflux disease) Status: Chronic (1) S/P total knee arthroplasty Status: Acute (2) Acute respiratory failure with hypoxia Status: Resolved Resolution Date/Time: 09/06/19 @ 11:03 (3) Candidiasis of skin Status: Acute (4) Endotracheally intubated Status: Resolved Resolution Date/Time: 09/05/19 @ 13:37 (5) Severe sepsis Status: Resolved Resolution Date/Time: 09/05/19 @ 13:37 (6) Lactic acidosis Status: Resolved Resolution Date/Time: 09/05/19 @ 13:37 (7) Multifocal pneumonia Status: Acute (8) Osteoarthritis of left knee Status: Chronic (9) Quadriceps tendon rupture Status: Acute (10) Tachycardia (11) Fever (12) HLD (hyperlipidemia) Status: Chronic (13) HTN (hypertension) Status: Chronic (14) GERD (gastroesophageal reflux disease) Status: Chronic (15) Cardiac arrhythmia (16) Smoker JUAN JOSE SNYDER DO Sep 13, 2019 07:22
[2019-09-13 08:00] VITALS: BP 130/77
--- NOTE | 2019-09-13 08:00 | NUR ---
DR. MANZANARES HERE TO SEE PATIENT.
--- NOTE | 2019-09-13 09:04 | Progress Note - Cardiology ---
Cardiology SOAP Progress Note Subjective: Up in the gym. No c/o CP, palpitations, syncope, near syncope or dyspnea. Objective: I&O/Vital Signs Weight (Pounds): 183 Weight (Ounces): 5.0 Weight (Calculated Kilograms): 83.820005 Constitutional: AAO x 3, well-developed, well-nourished Respiratory: No accessory muscle use, No respiratory distress; chest expansion is symmetric, chest is bilaterally symmetric, lungs clear to auscultation Cardiovascular: regular rate-rhythm; No JVD; S1 and S2 Gastrointestional: No tender; soft, audible bowel sounds Neurologic/Psychiatric: grossly intact (moves extremities) Skin: No rash on exposed areas, No ulcerations on exposed areas A/P: Assessment: Provoked DVT, L-sided: incompletely occlusive lower popliteal vein clot. The common and superficial femoral veins are patent. No other suspected thrombus (u/s of September 10, 2019) Ac resp failure (with transient hypoxia) - extubated on 09-04-2019 - resolved Septic shock post surgery (hypotension now resolved) s/p L total knee arthroplasty on 08/22/19 and quadriceps tendon repair on 08/24/19 Severe, post-op anemia - improved - management per medical services Intermittent sinus tach during this hospitalization Left bundle branch block, chronic History of cardiac catheterization in 2012: mild coronary artery disease; last MPI in March 2019 showing no significant ischemia or infarction, ejection fraction 78 percent. Echo 09/02/19 (Dr Willingham): LVEF 45-50%, no RWMA, mod TR, PASP 40-45 mmHg History of isolated PVCs and few brief runs of nonsustained ventricular tachycardia, she was seen by Dr. Marie and Dr. Lewis as an outpatient. Hyperlipidemia, treated with Lipitor History of mild carotid stenosis H/o tobacco use Plan: Therapeutic apixaban Continue current medication regimen Monitor labs ANITA TREVIÑO Sep 13, 2019 09:04
[2019-09-13] MEDS: APIXABAN 5 MG (ELIQUIS) TABLET PO SCH ×2 (09:06→21:49)
[2019-09-13] MEDS: DOCUSATE SODIUM 100 MG (COLACE) CAP PO SCH ×2 (09:06→20:05)
[2019-09-13] MEDS: SENNOSIDES 8.6 MG (SENOKOT) TAB PO SCH ×2 (09:06→20:05)
[2019-09-13] MEDS: FAMOTIDINE 20 MG (PEPCID) TABLET PO SCH ×2 (09:06→21:49)
[2019-09-13] MEDS: meTOprolol SUCCINATE 100 MG (TOPROL XL) TAB PO SCH (09:07)
[2019-09-13] MEDS: SENNA W/DOCUSATE (SENOKOT S) TABLET PO SCH ×2 (09:07→20:05)
[2019-09-13] MEDS: polyethylene glycoL POWDER 17 GM (MIRALAX) PACK PO SCH ×2 (09:12→20:05)
[2019-09-13] MEDS: RT-ALBUTEROL INHALER HFA (VENTOLIN HFA) 8 GM IH SCH ×2 (09:12→20:34)
[2019-09-13] MEDS: NYSTATIN CREAM (MYCOSTATIN) 30 GM TUBE TP SCH ×3 (09:13→21:51)
--- NOTE | 2019-09-13 09:19 | Progress Note - Cardiology ---
Cardiology SOAP Progress Note Subjective: No cp or palp or syncope or shortness of breath at rest No focal weakness Gen weakness present, improving No n/v/d Objective: I&O/Vital Signs 09/12/19 09/13/19 21:31 05:31 Temp 36.2 Pulse 77 Resp 16 B/P (MAP) 120/66 (84) Pulse Ox 96 97 O2 Delivery Room Air Room Air 09/13/19 00:00 Intake Total 1020 ml Balance 1020 ml Weight (Pounds): 183 Weight (Ounces): 5.0 Weight (Calculated Kilograms): 83.602639 Constitutional: AAO x 3, well-developed, well-nourished Respiratory: No accessory muscle use, No respiratory distress; chest expansion is symmetric, chest is bilaterally symmetric, lungs clear to auscultation Cardiovascular: regular rate-rhythm; No JVD; S1 and S2 Gastrointestional: No tender; soft, audible bowel sounds Neurologic/Psychiatric: grossly intact (moves extremities) Skin: No rash on exposed areas, No ulcerations on exposed areas A/P: Assessment: Provoked DVT, L-sided: incompletely occlusive lower popliteal vein clot. The common and superficial femoral veins are patent. No other suspected thrombus (u/s of September 10, 2019) Ac resp failure (with transient hypoxia) - extubated on 09-04-2019 - resolved Septic shock post surgery (hypotension now resolved) s/p L total knee arthroplasty on 08/22/19 and quadriceps tendon repair on 08/24/19 Severe, post-op anemia - improved - management per medical services Intermittent sinus tach during this hospitalization Left bundle branch block, chronic History of cardiac catheterization in 2012: mild coronary artery disease; last MPI in March 2019 showing no significant ischemia or infarction, ejection fraction 78 percent. Echo 09/02/19 (Dr Willingham): LVEF 45-50%, no RWMA, mod TR, PASP 40-45 mmHg History of isolated PVCs and few brief runs of nonsustained ventricular tachycardia, she was seen by Dr. Marie and Dr. Lewis as an outpatient. Hyperlipidemia, treated with Lipitor History of mild carotid stenosis H/o tobacco use Plan: Resting heart rate somewhat rapid BP at upper end of normal, on average Increase bb to Toprol XL 100 + 50 Therapeutic apixaban Monitor labs from time to time JUANJO MARCIAL MD FACP FACC CCDS Sep 13, 2019 09:19
--- NOTE | 2019-09-13 10:00 | NUR ---
DR. MARCIAL HERE TO SEE PATIENT. WILL INCREASE METOPROLOL DOSE. PATIENT STATES RASH IS IMPROVED.
--- NOTE | 2019-09-13 10:06 | Physical Therapy Daily Note ---
PT Daily Note-Current Subjective Pt sitting in recliner upon arrival. Pt agrees to PT for QC scoring for anticipated DC tomorrow. Pain Numeric Pain Scale: 3 Location: Incisional, Left Location Body Site: Thigh Pain Description: Ache, Tightness Mental Status Patient Orientation: Person, Place, Time, Situation Attachments: Other-See Comments (L Knee Immobilizer) Transfers SCALE: Activities may be completed with or without assistive devices. 9-Asnbuecmhg-kcmlogz completes the activity by him/herself with no assistance from a helper. 5-Set-up or Clean-up Assistance-helper sets up or cleans up; patient completes activity. [place] assists only prior to or following the activity. 4-Supervision or Touching Assistance-helper provides verbal cues and/or touching/steadying and/or contact guard assistance as patient completes activity. Assistance may be provided throughout the activity or intermittently. 3-Partial/Moderate Assistance-helper does LESS THAN HALF the effort. Hay lifts, holds or supports trunk or limbs, but provides less than half the effort. 2-Substantial/Maximal Assistance-helper does MORE THAN HALF the effort. Hay lifts or holds trunk or limbs and provides more than half the effort. 7-Kalwtgwri-uthloq does ALL the effort. Patient does none of the effort to complete the activity. Or, the assistance of 2 or more helpers is required for the patient to complete the activity. If activity was not attempted, code reason: 7-Patient Refused. 9-Not Applicable-not attempted and the patient did not perform the activity before the current illness, exacerbation or injury. 10-Not Attempted due to Environmental Limitations-(lack of equipment, weather restraints, etc.). 88-Not Attempted due to Medical Conditions or Safety Concerns. Roll Left & Right (QC): 6 Sit to Lying (QC): 6 Lying to Sitting/Side of Bed(Q: 6 Sit to Stand (QC): 6 Chair/Chj-gj-Aepgd Xfer(QC): 6 Toilet Transfer (QC): 6 Car Transfer (QC): 6 Pt is able to complete all tasks but sometimes needs longer time to complete due to having to maneuver L LE for comfort. Weight Bearing Left Lower Extremity: Left Weight Bearing/Tolerated Gait Training Does the Patient Walk?: Yes Distance: 150' x2 Walk 10 feet (QC): 6 Walk 50 ft with 2 Turns(QC): 6 Walk 150 ft (QC): 6 Walking 10ft/uneven surface-QC: 6 Gait Persons Needed: 1 Gait Assistive Device: FWW Pt tries to walk with normalized gait but due to L knee immobilizer pt isn't able to flex knee. Wheelchair Training Does the Pt Use a Wheelchair?: No Stair Training Stair Training: Handrails/: 2 handrails #of Steps: 4 1 Step (curb) (QC): 6 4 Steps (QC): 6 12 Steps (QC): 9 Stairs: Pattern: Step to Balance Picking up an Object (QC): 6 Treatments Pt transfers to standing then transfer to EOB and Supine. Pt completes QC scoring items listed above including ambulating in hallway. Pt uses restroom. Pt returns to room at end of Rx to rest in recliner with all needs met, call light in hand. Assessment Current Status: Good Progress Pt tolerates Rx well and is safe with all tasks. PT Short Term Goals Short Term Goals Time Frame: Sep 17, 2019 Roll Left & Right: 6 Sit to lyin Lying to sitting on side of be: 6 Sit to stand: 6 Chair/ocs-lc-onojf transfer: 6 Toilet transfer: 6 Walk 10 feet: 6 Walk 50 feet with two turns: 6 Walk 150 feet: 6 Walking 10ft on uneven surface: 5 1 step (curb): 4 4 steps: 4 PT Skilled Nursing Goals Skilled Nursing Goals PT Skilled Nursing Goals Time Frame: Oct 01, 2019 Roll Left & Right (QC): 6 Sit to Lying (QC): 6 Lying-Sitting on Side/Bed(QC): 6 Sit to Stand (QC): 6 Chair/Vef-ox-Nxvkp Xfer(QC): 6 Toilet Transfer (QC): 6 Car Transfer (QC): 6 Does the Patient Walk: Yes Walk 10 feet (QC): 6 Walk 50ft with 2 Turns (QC): 6 Walk 150 ft (QC): 6 Walking 10ft on Uneven Surface: 6 1 Step (curb) (QC): 6 4 Steps (QC): 6 12 Steps (QC): 6 Picking up an Object (QC): 88 Does the Pt use WC or Scooter?: No Wheel 50 feet with 2 turns (QC: 9 Wheel 150 feet: 9 PT Plan Problem List Problem List: Activity Tolerance Treatment/Plan Treatment Plan: Continue Plan of Care Treatment Plan: Education, Functional Activity Alexsandra, Functional Strength, Gait, Safety, Therapeutic Exercise, Transfers Treatment Duration: Oct 01, 2019 Frequency: At least 5 of 7 days/Wk (IRF) Estimated Hrs Per Day: 1.5 hours per day Patient and/or Family Agrees t: Yes Safety Risks/Education Patient Education: Gait Training, Transfer Techniques, Steps, Correct Positioning, Safety Issues Teaching Recipient: Patient Teaching Methods: Discussion Response to Teaching: Verbalize Understanding Time/GCodes Time In: 800 Time Out: 900 Total Billed Treatment Time: 60 Total Billed Treatment 1, GT (20m) & FA x3 (40m) DAMIAN MEANS WHIZZER Sep 13, 2019 10:06
--- NOTE | 2019-09-13 11:18 | Occupational Ther Daily Note ---
OT Current Status-Daily Note Subjective No pain reported. Appearance Pt. up in chair. Agrees to work with OT. Mental Status/Objective Patient Orientation: Person, Place, Time, Situation ADL-Treatment Therapy Code Descriptions/Definitions Functional [place] Measure: 0=Not Assessed/NA 4=Minimal Assistance 1=Total Assistance 5=Supervision or Setup 2=Maximal Assistance 6=Modified [place] 3=Moderate Assistance 7=Complete IndependenceSCALE: Activities may be completed with or without assistive devices. 8-Tuktbmsume-jljlpem completes the activity by him/herself with no assistance from a helper. 5-Set-up or Clean-up Assistance-helper sets up or cleans up; patient completes activity. [place] assists only prior to or following the activity. 4-Supervision or Touching Assistance-helper provides verbal cues and/or touching/steadying and/or contact guard assistance as patient completes activity. Assistance may be provided throughout the activity or intermittently. 3-Partial/Moderate Assistance-helper does LESS THAN HALF the effort. [place] lifts, holds or supports trunk or limbs, but provides less than half the effort. 2-Substantial/Maximal Assistance-helper does MORE THAN HALF the effort. [place] lifts or holds trunk or limbs and provides more than half the effort. 1-Fhgiospvk-vyxcbw does ALL the effort. Patient does none of the effort to complete the activity. Or, the assistance of 2 or more helpers is required for the patient to complete the activity. If activity was not attempted, code reason: 7-Patient Refused. 9-Not Applicable-not attempted and the patient did not perform the activity before the current illness, exacerbation or injury. 10-Not Attempted due to Environmental Limitations-(lack of equipment, weather restraints, etc.). 88-Not Attempted due to Medical Conditions or Safety Concerns. Eating (QC): 6 Oral Hygiene (QC): 6 Shower/Bathe Self (QC): 5 Upper Body Dressing (QC): 6 Lower Body Dressing (QC): 4 (Assist for brace. Pt. able to don underwear and shorts.) On/Off Footwear: 3 (Pt. able to don right sock, but attempts to don left with s ock aide. This is difficulty due to heel dressing.) Toileting Hygiene (QC): 6 Toilet Transfer (QC): 6 Education OT Patient Education: Correct positioning, Modified ADL techniques, Progress toward Goal/Update tx plan, Purpose of tx/functional activities, Reviewed precautions, Rehab process, Transfer techniques Teaching Recipient: Patient Teaching Methods: Demonstration, Discussion Response to Teaching: Verbalize Understanding, Return Demonstration OT Residential Goals Route Supervisor Goals Time Frame: Sep 24, 2019 Eating (QC): 6 Oral Hygiene (QC): 6 Toileting Hygiene (QC): 6 Shower/Bathe Self (QC): 5 Upper Body Dressing (QC): 6 Lower Body Dressing (QC): 6 On/Off Footwear (QC): 6 Additional Goals: 1-Demonstrate ADL Tasks, 2-Verbalize Understanding, 3- ImproveStrength/Alexsandra 1=Demonstrate adherence to instructed precautions during ADL tasks. 2=Patient will verbalize/demonstrate understanding of assistive devices/ modifications for ADL. 3=Patient will improve strength/tolerance for activity to enable patient to perform ADL's. OT Education/Plan Problem List/Assessment Assessment: No Skilled OT Needs ID'd Discharge Recommendations Plan/Recommendations: Discharge/Goals Met Equpiment Recommendations-D/C: Hip Kit, Walker Bag or Basket Target Placement Home with support of friends. Treatment Plan/Plan of Care Treatment,Training & Education: Yes Patient would benefit from OT for education, treatment and training to promote independence in ADL's, mobility, safety and/or upper extremity function for ADL's. Plan of Care: ADL Retraining, Functional Mobility, UE Funct Exercise/Act Treatment Duration: Sep 24, 2019 Frequency: At least 5 of 7 days/Wk (IRF) Estimated Hrs Per Day: 1.5 hours per day Agreement: Yes Rehab Potential: Good Time/GCodes Start Time: 09:00 Stop Time: 10:30 Total Time Billed (hr/min): 90 Billed Treatment Time 1, ADL x 6 KIRAN PENNINGTON OT Sep 13, 2019 11:18
--- NOTE | 2019-09-13 14:00 | NUR ---
STATES MILD SPOTTING WHEN WIPING SELF. DR. SNYDER NOTIFIED . PELVIC US WILL BE DONE AND CONSULT DR. RODGERS WHO WILL SEE HER TOMORROW.
[2019-09-13] MEDS: NEO/POLY/BAC (NEOSPORIN) OINT 15 GM TUBE TOP SCH ×2 (14:35→21:52)
--- NOTE | 2019-09-13 14:36 | Physical Therapy Daily Note ---
PT Daily Note-Current Subjective Pt sitting in recliner upon arrival. Pt agrees to PT. Pain Location: No Pain Reported Mental Status Patient Orientation: Person, Place, Time, Situation Attachments: Other-See Comments (L knee immobilizer) Transfers SCALE: Activities may be completed with or without assistive devices. 9-Lwoasrinsu-kyjbaym completes the activity by him/herself with no assistance from a helper. 5-Set-up or Clean-up Assistance-helper sets up or cleans up; patient completes activity. [place] assists only prior to or following the activity. 4-Supervision or Touching Assistance-helper provides verbal cues and/or touching/steadying and/or contact guard assistance as patient completes activity. Assistance may be provided throughout the activity or intermittently. 3-Partial/Moderate Assistance-helper does LESS THAN HALF the effort. [place] lifts, holds or supports trunk or limbs, but provides less than half the effort. 2-Substantial/Maximal Assistance-helper does MORE THAN HALF the effort. [place] lifts or holds trunk or limbs and provides more than half the effort. 6-Hkmjzolhz-hhtkgv does ALL the effort. Patient does none of the effort to complete the activity. Or, the assistance of 2 or more helpers is required for the patient to complete the activity. If activity was not attempted, code reason: 7-Patient Refused. 9-Not Applicable-not attempted and the patient did not perform the activity before the current illness, exacerbation or injury. 10-Not Attempted due to Environmental Limitations-(lack of equipment, weather restraints, etc.). 88-Not Attempted due to Medical Conditions or Safety Concerns. Sit to Lying (QC): 6 Sit to Stand (QC): 6 Chair/Bzw-pj-Rkkpx Xfer(QC): 6 Weight Bearing Left Lower Extremity: Left Weight Bearing/Tolerated Gait Training Does the Patient Walk?: Yes Distance: 150' x2 Walk 10 feet (QC): 6 Walk 50 ft with 2 Turns(QC): 6 Walk 150 ft (QC): 6 Gait Persons Needed: 1 Gait Assistive Device: FWW Wheelchair Training Does the Pt Use a Wheelchair?: No Stair Training Stair Training: Handrails/: 1 handrail, uses walker #of Steps: 4 1 Step (curb) (QC): 6 4 Steps (QC): 6 Stairs: Pattern: Step to Pt uses FWW and hand rail on L side ascending/R side descending as pt would have at home. Treatments Pt transfers from recliner to standing to EOB and Supine for AIRCRAFT ACCESSORIES MECHANIC to look at knee immobilizer to check if locked. Pt then transfers to standing and ambulates in hallway. Pt ambulates stairs (see above) before returning to recliner in room. Pt has all needs met, call light in hand. Assessment Current Status: Good Progress Pt tolerated Rx well. PT Short Term Goals Short Term Goals Time Frame: Sep 17, 2019 Roll Left & Right: 6 Sit to lyin Lying to sitting on side of be: 6 Sit to stand: 6 Chair/ysv-wj-lkvmf transfer: 6 Toilet transfer: 6 Walk 10 feet: 6 Walk 50 feet with two turns: 6 Walk 150 feet: 6 Walking 10ft on uneven surface: 5 1 step (curb): 4 4 steps: 4 PT Oil Distributor Tender Goals Oil Distributor Tender Goals PT Jail Goals Time Frame: Oct 01, 2019 Roll Left & Right (QC): 6 Sit to Lying (QC): 6 Lying-Sitting on Side/Bed(QC): 6 Sit to Stand (QC): 6 Chair/Deo-wn-Honle Xfer(QC): 6 Toilet Transfer (QC): 6 Car Transfer (QC): 6 Does the Patient Walk: Yes Walk 10 feet (QC): 6 Walk 50ft with 2 Turns (QC): 6 Walk 150 ft (QC): 6 Walking 10ft on Uneven Surface: 6 1 Step (curb) (QC): 6 4 Steps (QC): 6 12 Steps (QC): 6 Picking up an Object (QC): 88 Does the Pt use WC or Scooter?: No Wheel 50 feet with 2 turns (QC: 9 Wheel 150 feet: 9 PT Plan Problem List Problem List: Activity Tolerance Treatment/Plan Treatment Plan: Continue Plan of Care Treatment Plan: Education, Functional Activity Alexsandra, Functional Strength, Gait, Safety, Therapeutic Exercise, Transfers Treatment Duration: Oct 01, 2019 Frequency: At least 5 of 7 days/Wk (IRF) Estimated Hrs Per Day: 1.5 hours per day Patient and/or Family Agrees t: Yes Safety Risks/Education Patient Education: Steps, Issued Written HEP, Correct Positioning, Safety Issues Teaching Recipient: Patient Teaching Methods: Discussion Response to Teaching: Verbalize Understanding Time/GCodes Time In: 1300 Time Out: 1330 Total Billed Treatment Time: 30 Total Billed Treatment 1, EX (15m) & FA (15m) DAMIAN MEANS AIRCRAFT ACCESSORIES MECHANIC Sep 13, 2019 14:36
--- NOTE | 2019-09-13 16:30 | NUR ---
PELVIC US DONE.
[2019-09-13 17:02] VITALS: BP 133/83
--- NOTE | 2019-09-13 17:25 | Diagnostic Imaging Report ---
PROCEDURE: US Non-ob pelvis comp/trans. TECHNIQUE: Multiple real-time grayscale images were obtained of the pelvis in various projections endovaginally. Transabdominal imaging was also performed. INDICATION: Abnormal vaginal bleeding in a postmenopausal patient. COMPARISON: None. FINDINGS: Uterus is anteverted and measures 6.8 cm in length x 2.8 cm in AP dimension x 3.7 cm transversely. No focal myometrial masses are seen. Endometrial stripe is just above the upper limits of normal at 6 mm in thickness. Please note, 5 mm is considered the upper limits of normal in a postmenopausal patient. Endometrial stripe also has a heterogeneous echogenic appearance. Included portions of the cervix are unremarkable. There is no free fluid. Ovaries cannot be adequately identified on either side. Note is made of a complex solid-cystic mass in the left adnexa that measures 7 x 5.4 x 6 cm. Color flow images show presence of vascularity to the soft tissue portions. Patient is reportedly status post previous oophorectomy. IMPRESSION: 1. Complex solid-cystic left adnexal mass. Imaging appearance would raise concern for ovarian neoplasm, although patient is reportedly status post previous oophorectomy. Correlation with CT of the abdomen and pelvis is recommended. 2. Slightly abnormally thickened and heterogeneous appearance of the endometrial stripe. Findings could be on the basis of endometrial hyperplasia. Underlying endometrial polyp or mass cannot be excluded. Tissue sampling is advised. Dictated by: Dictated on workstation # [id number]
[2019-09-13] MEDS ORDERED: meTOproloL SUCCINATE 50 MG (TOPROL XL) TAB PO SCH (21:00)
[2019-09-13 21:49] VITALS: BP 127/80
[2019-09-13] MEDS: diphenhydrAMINE 25 MG TAB (BENADRYL) PO PRN (21:49)
[2019-09-14] MEDS ORDERED: NYST15CR TP (06:48)
[2019-09-14] MEDS ORDERED: SENN-20 PO (06:48)
[2019-09-14] MEDS ORDERED: METO50TA7 PO (06:48)
[2019-09-14] MEDS ORDERED: APIX5TAB PO (06:48)
[2019-09-14] MEDS ORDERED: OXYC5TAB96 PO (06:48)
[2019-09-14] MEDS ORDERED: MTP100TCR PO (06:48)
[2019-09-14] MEDS: RT-ALBUTEROL INHALER HFA (VENTOLIN HFA) 8 GM IH SCH (07:17)
[2019-09-14 07:20] VITALS: BP 110/67
--- NOTE | 2019-09-14 07:44 | NUR ---
DR. RODGERS HERE TO SEE PATIENT.
[2019-09-14] MEDS: SENNA W/DOCUSATE (SENOKOT S) TABLET PO SCH (08:02)
[2019-09-14] MEDS: meTOprolol SUCCINATE 100 MG (TOPROL XL) TAB PO SCH (08:02)
[2019-09-14] MEDS: APIXABAN 5 MG (ELIQUIS) TABLET PO SCH (08:02)
[2019-09-14] MEDS: polyethylene glycoL POWDER 17 GM (MIRALAX) PACK PO SCH (08:02)
[2019-09-14] MEDS: SENNOSIDES 8.6 MG (SENOKOT) TAB PO SCH (08:02)
[2019-09-14] MEDS: FAMOTIDINE 20 MG (PEPCID) TABLET PO SCH (08:02)
[2019-09-14] MEDS: DOCUSATE SODIUM 100 MG (COLACE) CAP PO SCH (08:02)
[2019-09-14] MEDS: NEO/POLY/BAC (NEOSPORIN) OINT 15 GM TUBE TOP SCH (08:03)
[2019-09-14] MEDS: NYSTATIN CREAM (MYCOSTATIN) 30 GM TUBE TP SCH (08:03)
--- NOTE | 2019-09-14 09:27 | NUR ---
CM/SS DISCHARGE Patient will return to her home as planned today with assistance from other adults residing in the home. OUTPATIENT PHYSICAL THERAPY has been coordinated at patient request with [facility], first appointment 09/17/19 at 10:15. Confirmed with therapy staff they have orders from Dr. Gann for 3x week, patient will make her other appointments for her convenience. Patient will self-coordinate her transport. Addendum: 09/14/19 at 0934 by CARMEN COOL Patient's cell #: [phone]
--- NOTE | 2019-09-14 09:39 | NUR ---
DR. MARCIAL HERE. [facility] TO [facility]. F/U IN HIS OFFICE ON 09/27/19 AT 3:40 PM.
--- NOTE | 2019-09-14 10:10 | Progress Note - Cardiology ---
Cardiology SOAP Progress Note Subjective: No cp or palp or syncope or shortness of breath Objective: I&O/Vital Signs 09/14/19 09/14/19 09/14/19 07:17 07:20 09:00 Temp 36.6 Pulse 78 Resp 16 B/P (MAP) 110/67 (81) Pulse Ox 98 92 O2 Delivery Room Air Room Air Room Air 09/14/19 00:00 Intake Total 2150 ml Balance 2150 ml Weight (Pounds): 183 Weight (Ounces): 5.0 Weight (Calculated Kilograms): 83.059914 Constitutional: AAO x 3, well-developed, well-nourished Respiratory: No accessory muscle use, No respiratory distress; chest expansion is symmetric, chest is bilaterally symmetric, lungs clear to auscultation Cardiovascular: regular rate-rhythm; No JVD; S1 and S2 Gastrointestional: No tender; soft, audible bowel sounds Neurologic/Psychiatric: grossly intact (moves extremities) Skin: No rash on exposed areas, No ulcerations on exposed areas A/P: Assessment: Provoked DVT, L-sided: incompletely occlusive lower popliteal vein clot. The common and superficial femoral veins are patent. No other suspected thrombus (u/s of September 10, 2019) Ac resp failure (with transient hypoxia) - extubated on 09-04-2019 - resolved Septic shock post surgery (hypotension now resolved) s/p L total knee arthroplasty on 08/22/19 and quadriceps tendon repair on 08/24/19 Severe, post-op anemia - improved - management per medical services Intermittent sinus tach during this hospitalization Left bundle branch block, chronic History of cardiac catheterization in 2013: mild coronary artery disease; last MPI in March 2019 showing no significant ischemia or infarction, ejection fraction 78 percent. Echo 09/02/19 (Dr Willingham): LVEF 45-50%, no RWMA, mod TR, PASP 40-45 mmHg History of isolated PVCs and few brief runs of nonsustained ventricular tachycardia, she was seen by Dr. Marie and Dr. Lewis as an outpatient. Hyperlipidemia, treated with Lipitor History of mild carotid stenosis H/o tobacco use Plan: Continue current regimen of bb and apixaban Outpt f/u advised Ok to d/c from cardiac standpoint JUANJO MARCIAL MD FACP FAC CCDS Sep 14, 2019 10:10
--- NOTE | 2019-09-14 10:16 | Therapy Team Discharge Summary ---
Therapy Discharge Summary Discharge Recommendations Date of Discharge 09/14/2019 Therapy D/C Recommendations: Physical Therapy Outpatient Physical Therapy This patient has experienced a complicated medical stay which started with an elective left TKR. Post surgery, she experienced a quadriceps rupture which impaired her mobility and required her to wear an IROM brace with ROM limitations. She transferred to ARU for skilled therapy serviced due tothis complication and limited functional mobility. She was making good progress on ARU, when she began experiencing fever and chills. She was transferred to ICU and subsequently intubated. Once she was extubated and medically stable, she returned to ARU for continued skilled therapy services. Initially after extubation, she was very week and required extensive assist to transfer. Once she returned to ARU, she was generally mod indep with bed mobiltiy and transfers; as well as gait. Howver, due to her medical complications, it was to her beneift to continue with medical management and skilled therapy services. Treatment consisted of functional strength, ROM, bed mobility, transfers and gait with progression of ther ex and safety training. She is mod indep with all mobility and transfers at this time and is ready to return home. All goals have been met. She has 2 roommates that will be able to assist somewhat. She plan to follow with outpt PT and has an appointment on 09/17/2019. Will discharge this date. Occupational Therapy No Skilled OT Needs ID'd PT Resource Program Teacher Goals Resource Program Teacher Goals PT Halfway Goals Time Frame: Oct 01, 2019 Roll Left to Right (QC): 6 Sit to Lying (QC): 6 Lying-Sitting on Side/Bed(QC): 6 Sit to Stand (QC): 6 Chair/Zlo-rx-Ameeu Xfer(QC): 6 Car Transfer (QC): 6 Does the Patient Walk: Yes Walk 10 feet (QC): 6 Walk 10ft-Uneven Surface(QC): 6 Walk 50ft with 2 Turns (QC): 6 Walk 150 ft (QC): 6 Does the Pt use WC or Scooter?: No Wheel 50 feet with 2 turns (QC: 9 1 Step (curb) (QC): 6 4 Steps (QC): 6 12 Steps (QC): 6 Picking up an Object (QC): 88 All goals met. OT Halfway Goals Resource Program Teacher Goals Time Frame: Sep 24, 2019 Eating (FIM): 6 Eating (QC): 6 Oral Hygiene (QC): 6 Shower/Bathe Self (QC): 5 Upper Body Dressing (QC): 6 Lower Body Dressing (QC): 6 On/Off Footwear (QC): 6 Toileting(FIM): 6 Toileting Hygiene (QC): 6 Toilet/Commode Transfer (QC): 6 Additional Goals: 1-Demonstrate ADL Tasks, 2-Verbalize Understanding, 3- ImproveStrength/Alexsandra 1=Demonstrate adherence to instructed precautions during ADL tasks. 2=Patient will verbalize/demonstrate understanding of assistive devices/modifications for ADL. 3=Patient will improve strength/tolerance for activity to enable patient to perform ADL's. CARMINE BRANCH PT Sep 14, 2019 10:16
--- NOTE | 2019-09-14 11:41 | Discharge Summary ---
Diagnosis/Chief Complaint Date of Admission Sep 10, 2019 at 13:10 Date of Discharge Discharge Date: Sep 14, 2019 Discharge Diagnosis Assessment: s/p left total knee replacement Dr Gann 08/22/19 s/p revision due to tendon dysfunction and sent to IRF 08/28/19 then required transfer to ICU for critical illness and VDRF and PNA HLP Cardiac arrhythmia hx Smoker Post op anemia Left lower leg DVT USG 09/10/19 placed on Eliquis x 3 months DUB at 64yo on OAC prompting MEDICAL SURGICAL TECH consult and USG Plan: Eliquis Monitor BP IRF protocol Pain meds BM regimen Discharge Summary Discharge Physical Examination Allergies: Coded Allergies: cephalexin (Unverified Adverse Reaction, Intermediate, VOMITING, 08/22/19) pravastatin (Unverified Adverse Reaction, Mild, NAUSEA, 08/22/19) Vitals & I&Os Vital Signs Date Time Temp Pulse Resp B/P (MAP) Pulse Ox O2 Delivery O2 Flow Rate FiO2 09/14/19 12:57 36.6 78 16 110/67 92 Room Air General Appearance: Alert, Oriented X3, Cooperative Respiratory: Clear to Auscultation Cardiovascular: Regular Rate Neuro: Normal Gait, Normal Speech, Strength at 5/5 X4 Ext Psych/Mental Status: Mental Status NL Hospital Course Was the Problem List Reviewed?: Yes Patient had a short IRF course after transferred down from 4th floor after critical illness from B/L PNA COVID negative with ARF and sepsis. Patient was able to participate in therapies and able to gain strength but left lower leg DVT dx so placed on OAC which resulted in good toleration until DUB in 64yo prompting TV USG which revealed ovarian mass and thickened endometrial stripe prompting consultation with Dr Crystal at her request and he will see her in close clinic appt. Pain meds and OAC were sent into pharmacy and patient was DC in improved condition. Labs (last 24 hrs) Laboratory Tests 09/11/19 05:35: White Blood Count 8.0, Red Blood Count 3.57L, Hemoglobin 10.0L, Hematocrit 34L, Mean Corpuscular Volume 94, Mean Corpuscular Hemoglobin 28, Mean Corpuscular Hemoglobin Concent 30L, Red Cell Distribution Width 16.8H, Platelet Count 629H, Mean Platelet Volume 8.3, Neutrophils (%) (Auto) 54, Lymphocytes (%) (Auto) 32, Monocytes (%) (Auto) 11, Eosinophils (%) (Auto) 2, Basophils (%) (Auto) 0, Neutrophils # (Auto) 4.4, Lymphocytes # (Auto) 2.6, Monocytes # (Auto) 0.9, Eosinophils # (Auto) 0.2, Basophils # (Auto) 0.0, Sodium Level 137, Potassium Level 4.5, Chloride Level 100, Carbon Dioxide Level 25, Anion Gap 12, Blood Urea Nitrogen 15, Creatinine 0.74, Estimat Glomerular Filtration Rate > 60, BUN/Creatinine Ratio 20, Glucose Level 106H, Calcium Level 9.8, Corrected Calcium 10.0, Total Bilirubin 0.8, Aspartate Amino Transf (AST/SGOT) 20, Alanine Aminotransferase (ALT/SGPT) 24, Alkaline Phosphatase 118, Total Protein 7.5, Albumin 3.8, CA 125 Antigen 42.0H Pending Labs Laboratory Tests 09/11/19 05:35: White Blood Count 8.0, Red Blood Count 3.57, Hemoglobin 10.0, Hematocrit 34, Me an Corpuscular Volume 94, Mean Corpuscular Hemoglobin 28, Mean Corpuscular Hemoglobin Concent 30, Red Cell Distribution Width 16.8, Platelet Count 629, Mean Platelet Volume 8.3, Neutrophils (%) (Auto) 54, Lymphocytes (%) (Auto) 32, Monocytes (%) (Auto) 11, Eosinophils (%) (Auto) 2, Basophils (%) (Auto) 0, Neutrophils # (Auto) 4.4, Lymphocytes # (Auto) 2.6, Monocytes # (Auto) 0.9, E osinophils # (Auto) 0.2, Basophils # (Auto) 0.0, Sodium Level 137, Potassium Level 4.5, Chloride Level 100, Carbon Dioxide Level 25, Anion Gap 12, Blood Urea Nitrogen 15, Creatinine 0.74, Estimat Glomerular Filtration Rate > 60, BUN/Creatinine Ratio 20, Glucose Level 106, Calcium Level 9.8, Corrected Calcium 10.0, Total Bilirubin 0.8, Aspartate Amino Transf (AST/SGOT) 20, Alanine A minotransferase (ALT/SGPT) 24, Alkaline Phosphatase 118, Total Protein 7.5, Albumin 3.8, CA 125 Antigen 42.0 Discharge Home Medications: Active Scripts Active Nystatin 15 Gm Cream..g. 0 Gm TP TID Senna-Time S Tablet (Sennosides/Docusate Sodium) 1 Each Tablet 1 Ea PO BID Oxycodone IR (Oxycodone HCl) 5 Mg Tablet 5-10 Mg PO Q4H PRN Metoprolol Succinate 100 Mg Tab.er.24h 100 Mg PO DAILY Metoprolol Succinate 50 Mg Tab.er.24h 50 Mg PO HS Eliquis (Apixaban) 5 Mg Tablet 10 Mg PO BID Reported Acid Beer Still Runner Compounder (FAMOTIDINE) (Famotidine) 20 Mg Tablet 40 Mg PO DAILY Atorvastatin Calcium 10 Mg Tablet 10 Mg PO HS Tylenol (Acetaminophen) 325 Mg Capsule 650 Mg PO TID Aspirin 81 Mg Tab.chew 81 Mg PO DAILY Instructions to patient/family Please see electronic discharge instructions given to patient. Diagnosis/Problems Diagnosis/Problems (1) S/P total knee arthroplasty Status: Acute Qualifiers: Qualified Codes: Z96.652 - Presence of left artificial knee joint (2) Acute respiratory failure with hypoxia Status: Resolved Resolution Date/Time: 09/06/19 @ 11:03 (3) Candidiasis of skin Status: Acute (4) Endotracheally intubated Status: Resolved Resolution Date/Time: 09/05/19 @ 13:37 (5) Severe sepsis Status: Resolved Resolution Date/Time: 09/05/19 @ 13:37 (6) Lactic acidosis Status: Resolved Resolution Date/Time: 09/05/19 @ 13:37 (7) Multifocal pneumonia Status: Acute (8) Osteoarthritis of left knee Status: Chronic (9) Quadriceps tendon rupture Status: Acute (10) Tachycardia (11) Fever (12) HLD (hyperlipidemia) Status: Chronic (13) HTN (hypertension) Status: Chronic (14) GERD (gastroesophageal reflux disease) Status: Chronic (15) Cardiac arrhythmia (16) Smoker Clinical Quality Measures DVT/VTE Risk/Contraindication: Risk Factor Score Per Nursin RFS Level Per Nursing on Admit: 4+=Very High JUAN JOSE SNYDER DO Sep 14, 2019 11:41
[2019-09-14 12:57] VITALS: BP 110/67
--- NOTE | 2019-09-14 21:47 | History & Physical ---
History and Physical Date Seen by Provider: Sep 14, 2019 Time Seen by Provider: 07:50 This is a consultation note from OPERATOR RECEPTIONIST service for Yadira Jensentz in room 230 with OPERATOR RECEPTIONIST consult at request of Dr. Stafford for postmenopausal bleeding and complex pelvic mass This patient is a 64-year-old white female currently admitted in rehabilitation with recent in the arthroplasty and repair patellar tendon. Her recovery has been complicated by a DVT she is on anticoagulants. She actually is ready for discharge home on this date. OPERATOR RECEPTIONIST was consult because of vaginal bleeding for 2 days. Patient denies any prior bleeding since menopause. She denies cramps or pain or pressure. She does report some bright red bleeding and some darkish discharge. She denies any problems bowel or bladder Allergies are to Keflex and Pravachol Medications are metoprolol Lipitor aspirin Pepcid calcium and Motrin Past medical history significant for back pain sciatica elevated cholesterol and GERD and osteogenesis imperfecta Past surgical history significant for right patellar tendon repair her right total knee are hyperplastic a right meniscus repair removal of her right ovary cholecystectomy and repair of an incisional hernia Family history significant for breast cancer coronary artery and vascular disease as well as osteogenesis imperfecta The review of of systems is as per the noted above from the H&P Physical exam HEENT exam is normal Neck is supple no lymphadenopathy no thyromegaly Abdomen is soft nontender nondistended Extremities exam is deferred secondary to her patient's recent surgery and history of DVT Pelvic exam is deferred Patient had an ultrasound that demonstrated a thickened endometrial stripe at 6 mm as well as a complex right ovarian cystic mass. Assessment and plan 64-year-old female with postmenopausal bleeding of new onset. Ultrasound shows a thickened endometrial stripe for menopausal state as well as a complex right adnexal mass. I had a lengthy discussion with the patient regarding those findings and the recommended follow-up and workup. Plan at this point is for her to continue her postoperative recovery and anticoagulation and follow-up with me in my clinic for repeat ultrasound and possible endometrial biopsy and appropriate follow-up for those findings and for her postmenopausal bleeding. Thank you for this consultation I will follow you to her discharge with the plan to follow-up in clinic for further evaluation Allergies and Home Medications Allergies Coded Allergies: cephalexin (Unverified Adverse Reaction, Intermediate, VOMITING, 08/22/19) pravastatin (Unverified Adverse Reaction, Mild, NAUSEA, 08/22/19) Home Medications Acetaminophen 325 Mg Capsule, 650 MG PO TID, (Reported) Apixaban 5 Mg Tablet, 10 MG PO BID Prescribed by: JUAN JOSE STAFFORD on 09/14/19647 Aspirin 81 Mg Tab.chew, 81 MG PO DAILY, (Reported) Atorvastatin Calcium 10 Mg Tablet, 10 MG PO HS, (Reported) Famotidine 20 Mg Tablet, 40 MG PO DAILY, (Reported) Metoprolol Succinate 50 Mg Tab.er.24h, 50 MG PO HS Prescribed by: JUAN JOSE STAFFORD on 09/14/19647 Metoprolol Succinate 100 Mg Tab.er.24h, 100 MG PO DAILY Prescribed by: JUAN JOSE STAFFORD on 09/14/19647 Nystatin 15 Gm Cream..g., 0 GM TP TID Prescribed by: JUAN JOSE STAFFORD on 09/14/19647 Oxycodone HCl 5 Mg Tablet, 5-10 MG PO Q4H PRN for PAIN MOD TO SEVERE Prescribed by: JUAN JOSE STAFFORD on 09/14/19648 Sennosides/Docusate Sodium 1 Each Tablet, 1 EA PO BID Prescribed by: JUAN JOSE STAFFORD on 09/14/19647 Patient Home Medication List Home Medication List Reviewed: No Clinical Quality Measures DVT/VTE Risk/Contraindication: Risk Factor Score Per Nursin RFS Level Per Nursing on Admit: 4+=Very High EMILY RODGERS MD Sep 14, 2019 21:47
--- NOTE | 2019-09-17 09:53 | Therapy Team Discharge Summary ---
Therapy Discharge Summary Discharge Recommendations Date of Discharge Sep 14, 2019 at 13:02 Therapy D/C Recommendations: Physical Therapy Outpatient Occupational Therapy Pt. has been seen by occupational therapy to increase overall strength and independence with daily skills. Pt. has met all goals. Demonstrates independence with most tasks, with exception of donning leg brace and sock. Pt. does report though that she will have assist with this as needed at home. All needs met at this facility and pt. discharged home. No further OT warranted at this time. No Skilled OT Needs ID'd PT Retirement Goals Long Term Care Pharmacist Goals PT Long Term Care Pharmacist Goals Time Frame: Oct 01, 2019 Roll Left to Right (QC): 6 Sit to Lying (QC): 6 Lying-Sitting on Side/Bed(QC): 6 Sit to Stand (QC): 6 Chair/Hvi-ll-Zeesw Xfer(QC): 6 Car Transfer (QC): 6 Does the Patient Walk: Yes Walk 10 feet (QC): 6 Walk 10ft-Uneven Surface(QC): 6 Walk 50ft with 2 Turns (QC): 6 Walk 150 ft (QC): 6 Does the Pt use WC or Scooter?: No Wheel 50 feet with 2 turns (QC: 9 1 Step (curb) (QC): 6 4 Steps (QC): 6 12 Steps (QC): 6 Picking up an Object (QC): 88 OT Long Term Care Pharmacist Goals Retirement Goals Time Frame: Sep 24, 2019 Eating (FIM): 6 (met) Eating (QC): 6 (met) Oral Hygiene (QC): 6 (met) Shower/Bathe Self (QC): 5 (met) Upper Body Dressing (QC): 6 (met) Lower Body Dressing (QC): 6 (not met) On/Off Footwear (QC): 6 (not met) Toileting(FIM): 6 (met) Toileting Hygiene (QC): 6 (met) Toilet/Commode Transfer (QC): 6 (met) Additional Goals: 1-Demonstrate ADL Tasks, 2-Verbalize Understanding, 3- ImproveStrength/Alexsandra 1=Demonstrate adherence to instructed precautions during ADL tasks. 2=Patient will verbalize/demonstrate understanding of assistive devices/modifications for ADL. 3=Patient will improve strength/tolerance for activity to enable patient to perform ADL's. KIRAN PENNINGTON OT Sep 17, 2019 09:53
== END 2019-09-14 13:02 | disposition home or self-care (01) | DRG 948 ==
PROVIDERS: ADMIT Internal Medicine; ATTEND Internal Medicine
DX: R53.81 Other malaise (principal); I82.432 Acute embolism and thrombosis of left popliteal vein; Q78.0 Osteogenesis imperfecta; Z87.01 Personal history of pneumonia (recurrent); Z96.652 Presence of left artificial knee joint; N95.0 Postmenopausal bleeding; R21 Rash and other nonspecific skin eruption; F17.210 Nicotine dependence, cigarettes, uncomplicated; I10 Essential (primary) hypertension; N83.9 Noninflammatory disorder of ovary, fallopian tube and broad ligament, unspecified; E78.5 Hyperlipidemia, unspecified; K21.9 Gastro-esophageal reflux disease without esophagitis; M19.91 Primary osteoarthritis, unspecified site; M54.9 Dorsalgia, unspecified; F32.9 Major depressive disorder, single episode, unspecified; I44.7 Left bundle-branch block, unspecified; I25.10 Atherosclerotic heart disease of native coronary artery without angina pectoris; I49.3 Ventricular premature depolarization; Z79.01 Long term (current) use of anticoagulants
CPT/HCPCS: 36415; 76830; 76856; 80053; 85025; 86304; 94640; 94760

== ENCOUNTER 2019-12-14 11:30 | Outpatient (RCR) | payer OTHER ==
[~2019-12-14 11:30] MED LIST changes: +APIX5TAB PO; -CALC600T12 PO; +CLC600T PO; +MTP100TCR PO; +NYST15CR TP; +OXYC5TAB96 PO; +SENN-20 PO
== END 2019-12-16 | disposition home or self-care (01) ==
PROVIDERS: ATTEND Orthopaedic Surgery
DX: Z47.1 Aftercare following joint replacement surgery (principal); Z96.651 Presence of right artificial knee joint; I10 Essential (primary) hypertension; M81.0 Age-related osteoporosis without current pathological fracture; Z72.0 Tobacco use

== ENCOUNTER 2020-03-06 11:22 | Outpatient (RCR) | payer OTHER ==
[~2020-03-06 11:22] MED LIST changes: +OXC5T PO; -OXYC5TAB96 PO
== END 2020-03-16 | disposition home or self-care (01) ==
PROVIDERS: ATTEND Orthopaedic Surgery
DX: M17.12 Unilateral primary osteoarthritis, left knee (principal); I10 Essential (primary) hypertension; M19.90 Unspecified osteoarthritis, unspecified site; M81.0 Age-related osteoporosis without current pathological fracture; Z72.0 Tobacco use

== ENCOUNTER → 2022-02-24 | Outpatient (CLI) | payer MEDICARE, OTHER ==
[~2022-02-24] MED LIST changes: +CALC600T91 PO; +CATHETER FLUSH 10 ML SYR IV PRN; -CLC600T PO; +HOLD METFORMIN - RECEIVED CONTRAST 20 ML VIAL IV SCH; +IOHEXOL 350 MG/ML 100 ML (OMNIPAQUE 350) VIAL IV ONE; +NS 100 ML (IVPB) BAG IV ONE; -NYST15CR TP; +NYST15CR35 TP
[2022-02-24 10:53] LABS: CREATININE SERUM 0.76 MG/DL (0.60-1.30)
--- NOTE | 2022-02-24 13:32 | Diagnostic Imaging Report ---
EXAMINATION: CT abdomen and pelvis with intravenous contrast. TECHNIQUE: Multiple contiguous axial images were obtained through the abdomen and pelvis after the uneventful administration of intravenous contrast. All CT scans use one or more of the following dose optimizing techniques: automated exposure control, MA and/or KvP adjustment based on patient size and exam type or iterative reconstruction. HISTORY: Pelvic mass COMPARISON: None available. FINDINGS: Limited views of the lower thorax are unremarkable. The liver is normal without focal lesion. There is no biliary ductal dilation. Gallbladder is absent. Pancreas is normal. Spleen is normal. Adrenal glands are normal. There is nonobstructing left renal stone. No suspicious renal lesions. There is no hydronephrosis. Urinary bladder is normal. There is a 13 x 10 cm complex cystic and solid mass centered in the midline of the pelvis and possibly involving both adnexa. Bowel is normal in caliber without obstruction or inflammation. No free fluid or air. No abdominal or pelvic lymphadenopathy. Aorta is normal in caliber without aneurysm. There are no suspicious osseus lesions. IMPRESSION: 1. Complex cystic and solid mass in the midline of the pelvis possibly involving both ovaries. Findings highly concerning for an ovarian malignancy. Gynecologic evaluation recommended. Dictated by: Dictated on workstation # [id number]
== END ==
LOC: RAD 10:17
PROVIDERS: ATTEND Obstetrics & Gynecology
DX: N94.89 Other specified conditions associated with female genital organs and menstrual cycle (principal)
CPT/HCPCS: 36415; 74177; 82565; 84520

== ENCOUNTER → 2022-07-21 | Outpatient (CLI) | payer MEDICARE, OTHER ==
[~2022-07-21] MED LIST changes: -CATHETER FLUSH 10 ML SYR IV PRN; -HOLD METFORMIN - RECEIVED CONTRAST 20 ML VIAL IV SCH; -IOHEXOL 350 MG/ML 100 ML (OMNIPAQUE 350) VIAL IV ONE; -NS 100 ML (IVPB) BAG IV ONE
[2022-07-21 14:52] LABS: BASOPHILS % (AUTO) 0 % (0-10); EOSINOPHILS # (AUTO) 0.1 10^3/uL (0.0-0.3); EOSINOPHILS % (AUTO) 1 % (0-10); HEMATOCRIT 46 % (35-52); HEMOGLOBIN 14.2 g/dL (11.5-16.0); LYMPHOCYTES # (AUTO) 2.2 X 10^3 (1.0-4.0); LYMPHOCYTES % (AUTO) 29 % (12-44); MEAN CORPUSCULAR HEMOGLOBIN 27 pg (25-34); MEAN CORPUSCULAR HGB CONC 31 g/dL (32-36); MEAN CORPUSCULAR VOLUME 86 fL (80-99); MEAN PLATELET VOLUME 10.1 fL (9.0-12.2); MONOCYTES # (AUTO) 0.6 X 10^3 (0.0-1.0); MONOCYTES % (AUTO) 8 % (0-12); NEUTROPHILS # (AUTO) 4.8 X 10^3 (1.8-7.8); NEUTROPHILS % (AUTO) 61 % (42-75); PLATELET COUNT 226 10^3/uL (130-400); WHITE BLOOD COUNT 7.8 10^3/uL (4.3-11.0)
[2022-07-21 15:05] LABS: CALCIUM 9.4 MG/DL (8.5-10.1); CREATININE SERUM 0.76 MG/DL (0.60-1.30); POTASSIUM 3.7 MMOL/L (3.6-5.0)
== END ==
LOC: WOUNDCARE 13:13
PROVIDERS: ATTEND Family Medicine
DX: T81.31XA Disruption of external operation (surgical) wound, not elsewhere classified, initial encounter (principal); L02.211 Cutaneous abscess of abdominal wall; D46.4 Refractory anemia, unspecified; E44.0 Moderate protein-calorie malnutrition; E66.01 Morbid (severe) obesity due to excess calories; E55.9 Vitamin D deficiency, unspecified; I96 Gangrene, not elsewhere classified; F17.218 Nicotine dependence, cigarettes, with other nicotine-induced disorders
CPT/HCPCS: 11042; 80048; 82306; 82607; 82728; 83540; 83550; 84134; 85025; 87070; 87205; 97605; G0463; 36415

== ENCOUNTER → 2022-07-23 | Outpatient (CLI) | payer MEDICARE, OTHER | LOC: WOUNDCARE 11:01 | PROVIDERS: ATTEND Family Medicine | DX: S31.109A Unspecified open wound of abdominal wall, unspecified quadrant without penetration into peritoneal cavity, initial encounter (principal); I10 Essential (primary) hypertension; I25.10 Atherosclerotic heart disease of native coronary artery without angina pectoris | CPT/HCPCS: 97605; G0463 ==

== ENCOUNTER → 2022-07-26 | Outpatient (CLI) | payer MEDICARE, OTHER | LOC: WOUNDCARE 14:01 | PROVIDERS: ATTEND Family Medicine | DX: S31.109A Unspecified open wound of abdominal wall, unspecified quadrant without penetration into peritoneal cavity, initial encounter (principal); L02.91 Cutaneous abscess, unspecified; T81.31XA Disruption of external operation (surgical) wound, not elsewhere classified, initial encounter | CPT/HCPCS: 97605; G0463 ==

== ENCOUNTER → 2022-07-28 | Outpatient (CLI) | payer MEDICARE, OTHER | LOC: WOUNDCARE 13:59 | PROVIDERS: ATTEND Family Medicine | DX: T81.31XA Disruption of external operation (surgical) wound, not elsewhere classified, initial encounter (principal); L02.211 Cutaneous abscess of abdominal wall; D46.4 Refractory anemia, unspecified; E44.0 Moderate protein-calorie malnutrition; F17.218 Nicotine dependence, cigarettes, with other nicotine-induced disorders; E66.01 Morbid (severe) obesity due to excess calories; E55.9 Vitamin D deficiency, unspecified; D50.9 Iron deficiency anemia, unspecified; A49.9 Bacterial infection, unspecified; E11.52 Type 2 diabetes mellitus with diabetic peripheral angiopathy with gangrene | CPT/HCPCS: 11042; 97605; A6021; G0463 ==

== ENCOUNTER → 2022-07-30 | Outpatient (CLI) | payer MEDICARE, OTHER | LOC: WOUNDCARE 10:44 | PROVIDERS: ATTEND Family Medicine | DX: S31.109A Unspecified open wound of abdominal wall, unspecified quadrant without penetration into peritoneal cavity, initial encounter (principal); I10 Essential (primary) hypertension; I25.10 Atherosclerotic heart disease of native coronary artery without angina pectoris | CPT/HCPCS: 97605; A6021; G0463 ==

== ENCOUNTER → 2022-08-02 | Outpatient (CLI) | payer MEDICARE, OTHER | LOC: WOUNDCARE 13:11 | PROVIDERS: ATTEND Family Medicine | DX: T81.31XA Disruption of external operation (surgical) wound, not elsewhere classified, initial encounter (principal); L02.211 Cutaneous abscess of abdominal wall; D46.4 Refractory anemia, unspecified; E44.0 Moderate protein-calorie malnutrition; F17.218 Nicotine dependence, cigarettes, with other nicotine-induced disorders; E66.01 Morbid (severe) obesity due to excess calories; E55.9 Vitamin D deficiency, unspecified; D50.9 Iron deficiency anemia, unspecified; A49.9 Bacterial infection, unspecified | CPT/HCPCS: 97605; G0463 ==

== ENCOUNTER → 2022-08-04 | Outpatient (CLI) | payer MEDICARE, OTHER | LOC: WOUNDCARE 13:57 | PROVIDERS: ATTEND Family Medicine | DX: T81.31XA Disruption of external operation (surgical) wound, not elsewhere classified, initial encounter (principal); D46.4 Refractory anemia, unspecified; E44.0 Moderate protein-calorie malnutrition; E66.01 Morbid (severe) obesity due to excess calories; E55.9 Vitamin D deficiency, unspecified; D50.9 Iron deficiency anemia, unspecified; I96 Gangrene, not elsewhere classified; F17.218 Nicotine dependence, cigarettes, with other nicotine-induced disorders | CPT/HCPCS: 11042; 97605; G0463 ==

== ENCOUNTER → 2022-08-06 | Outpatient (CLI) | payer MEDICARE, OTHER | LOC: WOUNDCARE 11:03 | PROVIDERS: ATTEND Family Medicine | DX: S31.109A Unspecified open wound of abdominal wall, unspecified quadrant without penetration into peritoneal cavity, initial encounter (principal); X58.XXXA Exposure to other specified factors, initial encounter; I10 Essential (primary) hypertension; I25.10 Atherosclerotic heart disease of native coronary artery without angina pectoris | CPT/HCPCS: 97605; G0463 ==

== ENCOUNTER → 2022-08-09 | Outpatient (CLI) | payer MEDICARE, OTHER | LOC: WOUNDCARE 13:21 | PROVIDERS: ATTEND Family Medicine | DX: S31.109A Unspecified open wound of abdominal wall, unspecified quadrant without penetration into peritoneal cavity, initial encounter (principal); L02.211 Cutaneous abscess of abdominal wall; T81.31XA Disruption of external operation (surgical) wound, not elsewhere classified, initial encounter; I25.10 Atherosclerotic heart disease of native coronary artery without angina pectoris; I10 Essential (primary) hypertension | CPT/HCPCS: 97605; G0463 ==

== ENCOUNTER → 2022-08-11 | Outpatient (CLI) | payer MEDICARE, OTHER | LOC: WOUNDCARE 12:59 | PROVIDERS: ATTEND Family Medicine | DX: S31.109A Unspecified open wound of abdominal wall, unspecified quadrant without penetration into peritoneal cavity, initial encounter (principal); I10 Essential (primary) hypertension; I25.10 Atherosclerotic heart disease of native coronary artery without angina pectoris | CPT/HCPCS: A6260; G0463; 99212 ==

== ENCOUNTER → 2022-08-13 | Outpatient (CLI) | payer MEDICARE, OTHER | LOC: WOUNDCARE 08:57 | PROVIDERS: ATTEND Family Medicine | DX: I96 Gangrene, not elsewhere classified (principal); T81.31XA Disruption of external operation (surgical) wound, not elsewhere classified, initial encounter; D46.4 Refractory anemia, unspecified; E44.0 Moderate protein-calorie malnutrition; E66.01 Morbid (severe) obesity due to excess calories; E55.9 Vitamin D deficiency, unspecified; D50.9 Iron deficiency anemia, unspecified; F17.218 Nicotine dependence, cigarettes, with other nicotine-induced disorders; Z68.29 Body mass index [BMI] 29.0-29.9, adult | CPT/HCPCS: 11042; 15271; G0463 ==

== ENCOUNTER → 2022-08-20 | Outpatient (CLI) | payer MEDICARE, OTHER | LOC: WOUNDCARE 11:04 | PROVIDERS: ATTEND Family Medicine | DX: T81.31XA Disruption of external operation (surgical) wound, not elsewhere classified, initial encounter (principal); D46.4 Refractory anemia, unspecified; E44.0 Moderate protein-calorie malnutrition; F17.218 Nicotine dependence, cigarettes, with other nicotine-induced disorders; E66.01 Morbid (severe) obesity due to excess calories; E55.9 Vitamin D deficiency, unspecified; D50.9 Iron deficiency anemia, unspecified; A49.9 Bacterial infection, unspecified; B37.2 Candidiasis of skin and nail; I96 Gangrene, not elsewhere classified | CPT/HCPCS: 11042; A6197; G0463 ==

== ENCOUNTER → 2022-08-27 | Outpatient (CLI) | payer MEDICARE, OTHER | LOC: WOUNDCARE 08:29 | PROVIDERS: ATTEND Family Medicine | DX: T81.31XA Disruption of external operation (surgical) wound, not elsewhere classified, initial encounter (principal); D46.4 Refractory anemia, unspecified; E44.0 Moderate protein-calorie malnutrition; E66.01 Morbid (severe) obesity due to excess calories; E55.9 Vitamin D deficiency, unspecified; D50.9 Iron deficiency anemia, unspecified; I96 Gangrene, not elsewhere classified; F17.218 Nicotine dependence, cigarettes, with other nicotine-induced disorders | CPT/HCPCS: 11042; G0463 ==

== ENCOUNTER → 2022-09-03 | Outpatient (CLI) | payer MEDICARE, OTHER | LOC: WOUNDCARE 08:30 | PROVIDERS: ATTEND Family Medicine | DX: T81.31XA Disruption of external operation (surgical) wound, not elsewhere classified, initial encounter (principal); D46.4 Refractory anemia, unspecified; E44.0 Moderate protein-calorie malnutrition; E66.01 Morbid (severe) obesity due to excess calories; E55.9 Vitamin D deficiency, unspecified; D50.9 Iron deficiency anemia, unspecified; F17.218 Nicotine dependence, cigarettes, with other nicotine-induced disorders | CPT/HCPCS: 11042; A6212; G0463 ==

== ENCOUNTER → 2022-09-10 | Outpatient (CLI) | payer MEDICARE, OTHER | LOC: WOUNDCARE 09:13 | PROVIDERS: ATTEND Family Medicine | DX: T81.31XA Disruption of external operation (surgical) wound, not elsewhere classified, initial encounter (principal); D46.4 Refractory anemia, unspecified; E44.0 Moderate protein-calorie malnutrition; E66.01 Morbid (severe) obesity due to excess calories; E55.9 Vitamin D deficiency, unspecified; D50.9 Iron deficiency anemia, unspecified; F17.218 Nicotine dependence, cigarettes, with other nicotine-induced disorders | CPT/HCPCS: 99213 ==

== ENCOUNTER → 2022-09-15 | Outpatient (CLI) | payer MEDICARE, OTHER | LOC: WOUNDCARE 13:57 | PROVIDERS: ATTEND Family Medicine | DX: I96 Gangrene, not elsewhere classified (principal); E66.01 Morbid (severe) obesity due to excess calories; E55.9 Vitamin D deficiency, unspecified; L02.211 Cutaneous abscess of abdominal wall; F17.218 Nicotine dependence, cigarettes, with other nicotine-induced disorders | CPT/HCPCS: 87070; 87205; 97597; A6197; A6212; G0463 ==

== ENCOUNTER 2022-09-23 13:25 | Outpatient (RCR) | payer MEDICARE, OTHER | END 2022-09-24 | disposition home or self-care (01) | PROVIDERS: ATTEND Internal Medicine | DX: R53.81 Other malaise (principal); I10 Essential (primary) hypertension ==

== ENCOUNTER → 2022-09-24 | Outpatient (CLI) | payer MEDICARE, OTHER | LOC: WOUNDCARE 08:52 | PROVIDERS: ATTEND Family Medicine | DX: E55.9 Vitamin D deficiency, unspecified (principal); L02.211 Cutaneous abscess of abdominal wall; E66.01 Morbid (severe) obesity due to excess calories; F17.218 Nicotine dependence, cigarettes, with other nicotine-induced disorders | CPT/HCPCS: 11042; G0463 ==

== ENCOUNTER → 2022-10-01 | Outpatient (CLI) | payer MEDICARE, OTHER | LOC: WOUNDCARE 08:57 | PROVIDERS: ATTEND Family Medicine | DX: L02.211 Cutaneous abscess of abdominal wall (principal); F17.218 Nicotine dependence, cigarettes, with other nicotine-induced disorders; E66.01 Morbid (severe) obesity due to excess calories; E55.9 Vitamin D deficiency, unspecified; L98.492 Non-pressure chronic ulcer of skin of other sites with fat layer exposed; I96 Gangrene, not elsewhere classified | CPT/HCPCS: 11042; A6212; G0463 ==

== ENCOUNTER → 2022-10-08 | Outpatient (CLI) | payer MEDICARE, OTHER | LOC: WOUNDCARE 08:54 | PROVIDERS: ATTEND Family Medicine | DX: L98.492 Non-pressure chronic ulcer of skin of other sites with fat layer exposed (principal); E66.01 Morbid (severe) obesity due to excess calories; E55.9 Vitamin D deficiency, unspecified; F17.218 Nicotine dependence, cigarettes, with other nicotine-induced disorders | CPT/HCPCS: 99212 ==

== ENCOUNTER 2022-10-14 15:12 | Outpatient (RCR) | payer MEDICARE, OTHER | END 2022-10-25 | disposition home or self-care (01) | PROVIDERS: ATTEND Internal Medicine | DX: R53.81 Other malaise (principal); M62.81 Muscle weakness (generalized); I10 Essential (primary) hypertension ==

== ENCOUNTER → 2022-10-21 | Outpatient (CLI) | payer MEDICARE, OTHER ==
[2022-10-21 13:43] LABS: BASOPHILS # (AUTO) 0.1 10^3/uL (0.0-0.1); BASOPHILS % (AUTO) 1 % (0-10); EOSINOPHILS # (AUTO) 0.1 10^3/uL (0.0-0.3); EOSINOPHILS % (AUTO) 2 % (0-10); HEMATOCRIT 46 % (35-52); HEMOGLOBIN 15.2 g/dL (11.5-16.0); LYMPHOCYTES # (AUTO) 3.2 10^3/uL (1.0-4.0); LYMPHOCYTES % (AUTO) 36 % (12-44); MEAN CORPUSCULAR HEMOGLOBIN 30 pg (25-34); MEAN CORPUSCULAR HGB CONC 33 g/dL (32-36); MEAN CORPUSCULAR VOLUME 92 fL (80-99); MEAN PLATELET VOLUME 9.2 fL (9.0-12.2); MONOCYTES # (AUTO) 0.8 10^3/uL (0.0-1.0); MONOCYTES % (AUTO) 9 % (0-12); NEUTROPHILS # (AUTO) 4.7 10^3/uL (1.8-7.8); NEUTROPHILS % (AUTO) 53 % (42-75); PLATELET COUNT 235 10^3/uL (130-400); WHITE BLOOD COUNT 8.8 10^3/uL (4.3-11.0)
[2022-10-21 14:01] LABS: ERYTHROCYTE SEDIMENTATION RATE 8 MM/HR (0-30)
[2022-10-21 14:04] LABS: ALBUMIN 4.3 GM/DL (3.2-4.5); BILIRUBIN,TOTAL 0.3 MG/DL (0.1-1.0); CALCIUM 9.6 MG/DL (8.5-10.1); CREATININE SERUM 0.78 MG/DL (0.60-1.30); POTASSIUM 4.4 MMOL/L (3.6-5.0); TOTAL PROTEIN 7.6 GM/DL (6.4-8.2)
== END ==
LOC: WOUNDCARE 12:48
PROVIDERS: ATTEND Family Medicine
DX: L98.492 Non-pressure chronic ulcer of skin of other sites with fat layer exposed (principal); E55.9 Vitamin D deficiency, unspecified; E66.01 Morbid (severe) obesity due to excess calories; F17.218 Nicotine dependence, cigarettes, with other nicotine-induced disorders
CPT/HCPCS: 80053; 85025; 85652; 86141; A6212; G0463; 36415; 99212

== ENCOUNTER → 2022-10-26 | Outpatient (CLI) | payer MEDICARE, OTHER ==
[~2022-10-26] MED LIST changes: +HOLD METFORMIN - RECEIVED CONTRAST 20 ML VIAL IV SCH; +IOHEXOL 350 MG/ML 100 ML (OMNIPAQUE 350) VIAL IV ONE; +NS 100 ML (IVPB) BAG IV ONE
--- NOTE | 2022-10-26 11:03 | Diagnostic Imaging Report ---
PROCEDURE: CT abdomen and pelvis with contrast. TECHNIQUE: Multiple contiguous axial images were obtained through the abdomen and pelvis after administration of intravenous contrast. Auto Exposure Controls were utilized during the CT exam to meet ALARA standards for radiation dose reduction. All CT scans use one or more of the following dose optimizing techniques: automated exposure control, MA and/or KvP adjustment based on patient size and exam type or iterative reconstruction. INDICATION: Wound dehiscence, incisional infection. COMPARISON: 02/24/2022. FINDINGS: There has been interval hysterectomy and removal of the cystic adnexal masses. There is rectus diastasis and ventral bulging john-incisional. There is some stranding and edema of the john-incisional subcutaneous fat but no abdominal wall fluid collection or carine abscess. The unopacified and unobstructed small bowel extends through the abdominal wall defect without evidence for inflammation, strangulation, or incarceration. No bowel obstruction. There is a fatty liver with an absent gallbladder. No pathological ductal dilatation. There is no hydronephrosis with left renal calculi noted, chronic. The spleen, adrenals, and pancreas are unremarkable. The aorta is nonaneurysmal. The urinary bladder is unremarkable. IMPRESSION: 1. Ventral herniation and rectus diastasis. There is some mild stranding of the john-incisional subcutaneous fat but no abscess, hematoma, or drainable fluid collection. No bowel, biliary, or urinary tract obstruction. No abdominal/pelvic intra or retroperitoneal inflammatory process. 2. Nonobstructing nephrolithiasis and fatty liver without pancreatitis or biliary dilatation. Dictated by: Dictated on workstation # [id number]
== END ==
LOC: RAD 09:46
PROVIDERS: ATTEND Family Medicine
DX: L98.492 Non-pressure chronic ulcer of skin of other sites with fat layer exposed (principal); K43.9 Ventral hernia without obstruction or gangrene; M62.08 Separation of muscle (nontraumatic), other site; N20.0 Calculus of kidney; K76.0 Fatty (change of) liver, not elsewhere classified; T81.30XA Disruption of wound, unspecified, initial encounter; T81.42XA Infection following a procedure, deep incisional surgical site, initial encounter
CPT/HCPCS: 74177

== ENCOUNTER → 2022-10-28 | Outpatient (CLI) | payer MEDICARE, OTHER ==
[~2022-10-28] MED LIST changes: -HOLD METFORMIN - RECEIVED CONTRAST 20 ML VIAL IV SCH; -IOHEXOL 350 MG/ML 100 ML (OMNIPAQUE 350) VIAL IV ONE; -NS 100 ML (IVPB) BAG IV ONE
== END ==
LOC: WOUNDCARE 12:29
PROVIDERS: ATTEND Family Medicine
DX: L98.492 Non-pressure chronic ulcer of skin of other sites with fat layer exposed (principal); E66.01 Morbid (severe) obesity due to excess calories; E55.9 Vitamin D deficiency, unspecified; F17.218 Nicotine dependence, cigarettes, with other nicotine-induced disorders
CPT/HCPCS: 99212

== ENCOUNTER → 2023-02-28 | Outpatient (CLI) | payer MEDICARE, OTHER ==
[~2023-02-28] MED LIST changes: +FAMO-356 PO; -FAMO20TA3 PO
--- NOTE | 2023-02-28 15:28 | Diagnostic Imaging Report ---
EXAMINATION: 3D bilateral screening mammogram with CAD. INDICATION: Screening. COMPARISON: There are no prior exams available for comparison. The report from the previous study of 01/26/2013 noted fibroglandular densities in both breasts as well as stable benign-appearing nodules in the right breast. There was no evidence for malignancy. FINDINGS: On this exam, the breasts are predominantly fatty. There are two benign-appearing nodular asymmetries in the upper-outer quadrant of the right breast. These may well correspond to the nodules mentioned in the previous report. There are also a number of benign-appearing calcifications scattered throughout both breasts. There is no primary or secondary sign of malignancy noted. IMPRESSION: 1. There is no evidence for malignancy. 2. The patient should have her annual bilateral screening mammogram on schedule in February 2024. ACR BI-RADS Category 1: Negative. Result letter will be mailed to the patient. Note: At least 10% of breast cancer is not imaged by mammography. Dictated by: Dictated on workstation # [id number]
== END ==
LOC: RAD 10:45
PROVIDERS: ATTEND Internal Medicine
DX: Z12.31 Encounter for screening mammogram for malignant neoplasm of breast (principal)
CPT/HCPCS: 77063; 77067